=== PATIENT | female | born 1955 | race Caucasian/White ===

== ENCOUNTER 2017-10-16 21:20 | Emergency (ER) | payer OTHER ==
--- OUTSIDE RECORDS SUMMARY | 2017-10-16 21:21 | XMS REPORT | Clinical Summary ---
:1955 Author Organization [facility] Address [address] [place] [address] Phone Care Team Providers Name Role Phone Unavailable Primary Care Provider Unavailable Allergies Active Allergy Reactions Severity Noted Date Comments Clindamycin Hives, Itching 01/10/2016 Current Medications Prescription Sig. Disp. Refills Start Date End Date Status ALBUTEROL SULFATE Inhale 2 puffs by Active (PROAIR HFA INHL) mouth via inhaler 4 (four) times daily. cycloSPORINE Place 1 drop into Active (RESTASIS) 0.05 % both eyes daily. ophthalmic emulsion esomeprazole Take 40 mg by mouth Active (NEXIUM) 40 MG daily. capsule fluticasone Inhale 1 puff by Active (FLOVENT DISKUS) 50 mouth via inhaler mcg/actuation daily. diskus inhaler FORMOTEROL FUMARATE Inhale 20 mcg by Active (PERFOROMIST INHL) mouth via inhaler 2 (two) times daily. TIOTROPIUM BROMIDE Inhale 1 puff by Active (SPIRIVA RESPIMAT mouth via inhaler INHL) daily. heparin injection Inject 1 mL (5,000 1 mL 0 01/21/2016 Active 5,000 units/mL Units total) subcutaneously every 12 (twelve) hours. labetalol Inject 4 mLs (20 mg 20 mL 0 01/21/2016 Active (NORMODYNE,TRANDATE total) intravenously ) 5 mg/mL injection every 4 (four) hours as needed (SBP>180). insulin lispro Inject 0-16 Units 10 mL 0 01/21/2016 (HUMALOG) 100 subcutaneously as 7 unit/mL injection needed (High blood sugar). aspirin 81 MG Take 1 tablet (81 mg 0 01/21/2016 chewable tablet total) by mouth 7 daily. azelastine 1 spray by Nasal 30 mL 0 01/21/2016 (ASTELIN) 137 mcg route daily Use in 7 (0.1 %) nasal spray each nostril as directed. cetirizine (ZYRTEC) Take 1 tablet (5 mg 0 01/21/2016 5 MG tablet total) by mouth 7 daily. hydrALAZINE Take 1 tablet (100 0 01/21/2016 (APRESOLINE) 100 MG mg total) by mouth 7 tablet every 6 (six) hours. magnesium oxide Take 1 tablet (400 0 01/21/2016 (MAG-OX) 400 mg mg total) by mouth 2 7 tablet (two) times daily. sodium bicarbonate Take 1 tablet (325 0 01/21/2016 325 MG tablet mg total) by mouth 2 7 (two) times daily. pregabalin (LYRICA) Take 1 capsule (150 0 01/21/2016 150 MG capsule mg total) by mouth 2 7 (two) times daily. sertraline (ZOLOFT) Take 3 tablets (150 30 tablet 0 01/21/2016 50 MG tablet mg total) by mouth 7 daily. amLODIPine Take 1 tablet (10 mg 0 01/21/2016 (NORVASC) 10 MG total) by mouth 7 tablet daily. acetaminophen Take 2 tablets (650 30 tablet 0 01/21/2016 (TYLENOL) 325 MG mg total) by mouth 7 tablet every 6 (six) hours as needed for up to 360 days. carvedilol (COREG) Take 1 tablet (12.5 0 01/21/2016 12.5 MG tablet mg total) by mouth 2 7 (two) times daily. losartan (COZAAR) Take 1 tablet (50 mg 0 01/21/2016 50 MG tablet total) by mouth 7 daily. ferrous sulfate 325 Take 1 tablet (325 0 01/21/2016 (65 FE) MG tablet mg total) by mouth 2 7 (two) times daily. Active Problems Problem Noted Date Proteinuria 01/17/2016 UTI (urinary tract infection) 01/11/2016 HTN (hypertension), malignant 01/11/2016 ARF (acute renal failure) (HCC) 01/11/2016 Acute encephalopathy 01/11/2016 Altered mental status 01/10/2016 HTN (hypertension) HTN (hypertension) HTN (hypertension) CKD (chronic kidney disease) Social History Tobacco Use Types Packs/Day Years Used Date Never Assessed Sex Assigned at Date Recorded Not on file Last Filed Vital Signs Not on file Plan of Treatment Not on file Results Not on fileafter 10/15/2016
[2017-10-16 21:57] LABS: Absolute Lymphocytes (CBC) 0.8 K/uL (0.7-4.9); Absolute Monocytes 0.4 K/uL (0.1-1.3); Basophils % 1.2 % (0-1.3); Eosinophils % 5.2 % (0-4.4); Hematocrit 29.5 % (36.0-45.0); Lymphocytes % 18.7 % (15.3-44.8); MCH 30.8 pg (27.0-35.0); MCV 91.1 fL (80-100); MPV 8.3 fL (7.6-11.3); RBC Red Blood Cell Count 3.23 M/uL (3.86-4.86)
[2017-10-16 22:07] LABS: Bicarbonate 29 mEq/L (21-31); Glucose Level 95 mg/dL (65-120); Lipase 20 U/L (22-51); Potassium 3.9 mEq/L (3.6-5.0); Sodium Level 133 mEq/L (135-145)
[2017-10-16 22:14] LABS: AST/SGOT 14 IU/L (10-42); Albumin 3.7 g/dL (3.2-5.5); Alkaline Phosphatase 52 IU/L (42-121); Amylase Level 27 U/L (28-100); BUN Blood Urea Nitrogen 35 mg/dL (6-20); Bilirubin Direct 0.1 mg/dL (0-0.2); Bilirubin Total 0.4 mg/dL (0.3-1.2); Protein, Total 6.4 g/dL (6.0-8.3)
[2017-10-16 22:18] LABS: ALT/SGPT < 5 IU/L (10-60)
[2017-10-16] MEDS ORDERED: DIPHENOX/ATROP SULF 1 TAB PO ONE (22:53)
[2017-10-16] MEDS ORDERED: NA CHLORIDE 0.9% 1,000 ML ONE (22:55)
--- NOTE | 2017-10-16 23:21 | ER ---
Nurse's Notes [facility] Name: Sima Asher Age: 62 yrs Sex: Female : 1955 Arrival Date: 10/16/2017 Time: 21:30 Bed 5 Private MD: Diagnosis: Diarrhea, unspecified Presentation: 10/16 21:49 Presenting complaint: EMS states: pt c/o diarrhea for the last two weeks, can go tl3 anywhere from 3-10 times in a day, today it was immediately after eating which before it was not. no fever or vomiting, daughter states that pt was sleeping more than usual and groggy. Transition of care: patient was not received from another setting of care. Onset of symptoms. Risk Assessment: Do you want to hurt yourself or someone else? Patient reports no desire to harm self or others. Initial Sepsis Screen: Does the patient meet any 2 criteria? No. Patient's initial sepsis screen is negative. Does the patient have a suspected source of infection? No. Patient's initial sepsis screen is negative. Care prior to arrival: IV initiated. 20 GA, in the right antecubital area, infiltrated on arrival. 21:49 Method Of Arrival: EMS: [facility] tl3 21:49 Acuity: SUNDAY 3 tl3 Triage Assessment: 10/17 00:21 General: Appears in no apparent distress. slender, well groomed, well developed, well tl3 nourished, Behavior is calm, cooperative, appropriate for age. Pain: Denies pain. GI: Reports diarrhea. Historical: - Allergies: 10/16 22:01 Clindamycin; tl3 22:01 Cozaar; tl3 22:01 Losartan; tl3 22:01 Bactrim; tl3 - Home Meds: 22:01 Nexium 40 mg Oral cpDR 1 cap once daily [Active]; ProAir HFA 90 mcg/actuation tl3 inhalation HFAA 2 puffs every 6 hours [Active]; iron Oral [Active]; aspirin 81 mg Oral chew 1 tab once daily [Active]; fluticasone 50 mcg/actuation nasal spsn 1 spray once daily [Active]; gabapentin 100 mg oral cap [Active]; cetirizine 10 mg oral tab [Active]; trazodone 100 mg Oral tab 2 tabs [Active]; tramadol 50 mg Oral tab [Active]; hydralazine 100 mg Oral tab 3 times per day [Active]; magnesium oxide 400 mg Oral cap [Active]; isosorbide dinitrate 30 mg Oral tab [Active]; mirtazapine 15 mg Oral TbDL [Active]; - Immunization history:: Adult Immunizations up to date. - Social history:: Smoking status: Patient/guardian denies using tobacco, never smoked. - Ebola Screening: : Patient denies travel to an Ebola-affected area in the 21 days before illness onset. Screenin:05 Abuse screen: Denies threats or abuse. Nutritional screening: No deficits noted. tl3 Tuberculosis screening: No symptoms or risk factors identified. Fall Risk None identified. Assessment: 22:05 Reassessment: No changes from previously documented assessment. Patient and/or family tl3 updated on plan of care and expected duration. Pain level reassessed. Patient is alert, oriented x 3, equal unlabored respirations, skin warm/dry/pink. Vital Signs: 22:01 BP 171 / 80; Pulse 62; Resp 18; Temp 98; Pulse Ox 100% ; tl3 ED Course: 21:30 Patient arrived in ED. aa1 21:31 Kael Trujillo MD is Attending Physician. tw4 21:49 Dulce Maria Levi, SERENA is Primary Nurse. tl3 21:52 Triage completed. tl3 22:01 Arm band placed on right wrist. tl3 22:05 Patient has correct armband on for positive identification. Bed in low position. Call tl3 light in reach. Side rails up X2. monitoring and evaluation advisor on. Pulse ox on. NIBP on. Warm blanket given. 22:05 No provider procedures requiring assistance completed. Inserted saline lock: 22 gauge tl3 in left forearm, using aseptic technique. Blood collected. 22:49 Stool Culture Sent. tl3 22:49 Rotavirus Antigen Sent. tl3 22:49 Fecal Leukocyte Stain Sent. tl3 22:49 CDIFF Sent. tl3 22:49 Amylase, Serum Sent. tl3 23:20 Errol Menchaca MD is Referral Physician. tw4 06/04 00:20 IV discontinued, intact, bleeding controlled, No redness/swelling at site. Pressure tl3 dressing applied. Administered Medications: 10/16 22:00 Drug: NS 0.9% 1000 ml Route: IV; Rate: 125 ml/hr; Site: left forearm; Delivery: Primary tl3 tubing; 23:37 Follow up: Rate change 999 ml/hr tl3 10/17 15:09 Follow up: IV Status: Completed infusion; IV Intake: 500ml tl3 10/16 22:59 Drug: LoMOTIL 2 tabs Route: PO; tl3 23:23 Follow up: Response: No adverse reaction tl3 Intake: 10/17 15:09 IV: 500ml; Total: 500ml. tl3 Outcome: 10/16 23:20 Discharge ordered by MD. jovel 10/17 00:20 Discharged to home ambulatory. tl3 Condition: stable Discharge instructions given to patient, family, Instructed on discharge instructions, follow up and referral plans. medication usage, Demonstrated understanding of instructions, follow-up care, medications, Prescriptions given X 3. 00:22 Patient left the ED. tl3 Signatures: Anabell Driver, RN RN aa1 Kael Trujillo MD MD tw4 Dulce Maria Levi RN RN tl3
--- NOTE | 2017-10-16 23:21 | EDPHYS ---
Physician Documentation [facility] Name: Sima Asher Age: 62 yrs Sex: Female : 1955 Arrival Date: 10/16/2017 Time: 21:30 Bed 5 Private MD: ED Physician Kael Trujillo HPI: 10/17 00:03 This 62 yrs old Female presents to ER via EMS with complaints of Diarrhea. tw4 00:03 The patient presents to the emergency department with diarrhea, that is continuous, 5 tw4 times today. Onset: The symptoms/episode began/occurred 2 week(s) ago. Possible causes: flare up of bowel problem. The symptoms are aggravated by nothing. The symptoms are alleviated by nothing. Associated signs and symptoms: The patient has no apparent associated signs or symptoms. The patient has not experienced similar symptoms in the past. Historical: - Allergies: 10/16 22:01 Clindamycin; tl3 22:01 Cozaar; tl3 22:01 Losartan; tl3 22:01 Bactrim; tl3 - Home Meds: 22:01 Nexium 40 mg Oral cpDR 1 cap once daily [Active]; ProAir HFA 90 mcg/actuation tl3 inhalation HFAA 2 puffs every 6 hours [Active]; iron Oral [Active]; aspirin 81 mg Oral chew 1 tab once daily [Active]; fluticasone 50 mcg/actuation nasal spsn 1 spray once daily [Active]; gabapentin 100 mg oral cap [Active]; cetirizine 10 mg oral tab [Active]; trazodone 100 mg Oral tab 2 tabs [Active]; tramadol 50 mg Oral tab [Active]; hydralazine 100 mg Oral tab 3 times per day [Active]; magnesium oxide 400 mg Oral cap [Active]; isosorbide dinitrate 30 mg Oral tab [Active]; mirtazapine 15 mg Oral TbDL [Active]; - Immunization history:: Adult Immunizations up to date. - Social history:: Smoking status: Patient/guardian denies using tobacco, never smoked. - Ebola Screening: : Patient denies travel to an Ebola-affected area in the 21 days before illness onset. ROS: 10/17 00:03 Constitutional: Negative for fever, chills, and weight loss, Cardiovascular: Negative tw4 for chest pain, palpitations, and edema, Respiratory: Negative for shortness of breath, cough, wheezing, and pleuritic chest pain, MS/Extremity: Negative for injury and deformity, Skin: Negative for injury, rash, and discoloration. Abdomen/GI: Positive for diarrhea, Negative for abdominal pain, nausea and vomiting, nausea, vomiting, and diarrhea, nausea, abdominal cramps, abdominal distension, anorexia, dysphagia, hematemesis, black/tarry stool, rectal pain, rectal bleeding. Exam: 00:03 Constitutional: This is a well developed, well nourished patient who is awake, alert, tw4 and in no acute distress. Head/Face: Normocephalic, atraumatic. Chest/axilla: Normal chest wall appearance and motion. Nontender with no deformity. No lesions are appreciated. Cardiovascular: Regular rate and rhythm with a normal S1 and S2. No gallops, murmurs, or rubs. Normal PMI, no JVD. No pulse deficits. Respiratory: Lungs have equal breath sounds bilaterally, clear to auscultation and percussion. No rales, rhonchi or wheezes noted. No increased work of breathing, no retractions or nasal flaring. Abdomen/GI: Soft, non-tender, with normal bowel sounds. No distension or tympany. No guarding or rebound. No evidence of tenderness throughout. MS/ Extremity: Pulses equal, no cyanosis. Neurovascular intact. Full, normal range of motion. Neuro: Awake and alert, GCS 15, oriented to person, place, time, and situation. Cranial nerves II-XII grossly intact. Motor strength 5/5 in all extremities. Sensory grossly intact. Cerebellar exam normal. Normal gait. Vital Signs: 10/16 22:01 BP 171 / 80; Pulse 62; Resp 18; Temp 98; Pulse Ox 100% ; tl3 MDM: 21:31 Patient medically screened. tw4 10/17 00:04 Differential diagnosis: Nonspecific abd pain. Data reviewed: vital signs, nurses notes. tw4 Counseling: I had a detailed discussion with the patient and/or guardian regarding: the historical points, exam findings, and any diagnostic results supporting the discharge/admit diagnosis. Special discussion: I discussed with the patient/guardian in detail that at this point there is no indication for admission to the hospital. It is understood, however, that if the symptoms persist or worsen the patient needs to return immediately for re-evaluation. 10/16 21:40 Order name: Amylase, Serum [facility] 10/16 21:40 Order name: Basic Metabolic Panel; Complete Time: 22:34 [facility] 10/16 22:34 Interpretation: GFR 20; CRE 2.51; BUN 35; CL 99; NA 133. [facility] 10/16 21:40 Order name: CBC with Diff; Complete Time: 22:16 [facility] 10/16 21:40 Order name: Creatinine for Radiology; Complete Time: 22:16 [facility] 10/16 21:40 Order name: Hepatic Function; Complete Time: 22:34 [facility] 10/16 21:40 Order name: Lipase; Complete Time: 22:34 [facility] 10/16 21:40 Order name: Amylase Level; Complete Time: 22:34 [facility] 10/16 22:15 Order name: CDIFF [facility] 10/16 22:15 Order name: Stool Culture [facility] 10/16 22:15 Order name: Rotavirus Antigen [facility] 10/16 22:15 Order name: Fecal Leukocyte Stain [facility] 10/16 22:15 Order name: Ova And Parasites [facility] 10/16 21:40 Order name: IV Saline Lock; Complete Time: 22:49 [facility] 10/16 21:40 Order name: Labs collected and sent; Complete Time: 22:49 [facility] 10/16 22:16 Order name: Clostridium difficile DNA [facility] 10/16 22:16 Order name: Stool Culture [facility] 10/16 22:16 Order name: Rotavirus Antigen [facility] 10/16 22:16 Order name: Fecal Leukocyte Stain [facility] Administered Medications: 10/16 22:00 Drug: NS 0.9% 1000 ml Route: IV; Rate: 125 ml/hr; Site: left forearm; Delivery: Primary tl3 tubing; 23:37 Follow up: Rate change 999 ml/hr [facility] 10/17 15:09 Follow up: IV Status: Completed infusion; IV Intake: 500ml [facility] 10/16 22:59 Drug: LoMOTIL 2 tabs Route: PO; tl3 23:23 Follow up: Response: No adverse reaction tl3 Disposition: 10/16/17 23:20 Discharged to Home. Impression: Diarrhea, unspecified. - Condition is Stable. - Discharge Instructions: Food Choices to Help Relieve Diarrhea, Adult, Diarrhea. - Prescriptions for Lomotil 2.5- 0.025 mg Oral Tablet - take 2 tablet by ORAL route once daily As needed; 20 tablet. Cipro 500 mg Oral Tablet - take 1 tablet by ORAL route every 12 hours for 10 days; 20 tablet. - Medication Reconciliation Form, Thank You Letter, Antibiotic Education, Prescription Opioid Use form. - Follow up: Errol Menchaca MD; When: As needed; Reason: Recheck today's complaints, Continuance of care, Re-evaluation by your physician. - Problem is new. - Symptoms have improved. Signatures: Dispatcher [employer] [facility] Kael Trujillo MD MD tw4 Dulce Maria Levi RN RN tl3 Corrections: (The following items were deleted from the chart) 22:17 22:16 Occult Blood+[id number] ordered. [facility] 10/17 00:22 [id number] 23:20 10/16/2017 23:20 Discharged to Home. Impression: Diarrhea, unspecified. tl3 Condition is Stable. Forms are Medication Reconciliation Form, Thank You Letter, Antibiotic Education, Prescription Opioid Use. Follow up: Errol Menchaca; When: As needed; Reason: Recheck today's complaints, Continuance of care, Re-evaluation by your physician. Problem is new. Symptoms have improved. tw4
[2017-10-17 00:35] VITALS: BP 171/80; TEMP 98; O2SAT 100
== END 2017-10-17 00:22 | disposition home or self-care (01) ==
LOC: ER 21:20
DX: R19.7 Diarrhea, unspecified (principal); Z88.1 Allergy status to other antibiotic agents; Z88.8 Allergy status to other drugs, medicaments and biological substances
CPT/HCPCS: 36415; 80048; 80076; 82150; 83690; 85025; 87045; 87046; 87177; 87209; 87425; 87493; 89055; 96360; 96361; 99284; J7030

== ENCOUNTER 2017-10-17 11:25 | Inpatient (IN) | payer OTHER ==
--- OUTSIDE RECORDS SUMMARY | 2017-10-17 11:27 | XMS REPORT | Clinical Summary ---
:1955 Author Organization [facility] Address [address] [place] [address] Phone Care Team Providers Name Role Phone [...] Not on file Results Not on fileafter 10/16/2016
--- NOTE | 2017-10-17 13:04 | RAD REPORT ---
EXAM DESCRIPTION: RAD - Tib Fib Left - 10/17/2017 12:50 pm CLINICAL HISTORY: Fall, bilateral knee pain COMPARISON: None. FINDINGS: Transverse fracture is present involving the proximal to the metaphysis. Extension to the articular surface is suspected but not confirmed. Fracture of the head of the fibula is present. The proximal tibial plateau fracture fragment is angulated posteriorly approximately 25 degrees. There is approximately 12 millimeter diastasis along the anterior margin of the fracture. Pathologic componen t is not confirmed. More distally the shaft and distal tibia and fibula are intact. Knee joint is not well visualized to assess for hemarthrosis. Left knee is separately detailed. No air or foreign body in the soft tissues. IMPRESSION: Transverse fractures of the proximal tibia and fibula with the tibial plateau fracture f ragment angulated posteriorly approximately 25 degrees.
--- NOTE | 2017-10-17 13:10 | RAD REPORT ---
EXAM DESCRIPTION: RAD - Tib Fib Right - 10/17/2017 12:50 pm CLINICAL HISTORY: Fall, right knee pain COMPARISON: None. FINDINGS: Right knee and right tibia/ fibula, multiple views are submitted. A fracture seen involving the lateral tibial plateau extending inferior to the level of the tibial tu bercle. A lipohemarthrosis is present, moderate in size. The bones are osteopenic.
--- NOTE | 2017-10-17 13:11 | RAD REPORT ---
EXAM DESCRIPTION: RAD - Knee Left 2 View - 10/17/2017 12:50 pm CLINICAL HISTORY: Fall, knee pain COMPARISON: None. FINDINGS: Significant transverse fracture is seen involving the proximal tibial metaphysis at the le bre of the tibial tubercle. Fracture involving the fibular neck is also present. Soft tissue swelling is moderate. A lipohemarthrosis is seen.
--- NOTE | 2017-10-17 13:13 | RAD REPORT ---
EXAM DESCRIPTION: RAD - Chest Single View - 10/17/2017 12:50 pm CLINICAL HISTORY: Cough COMPARISON: 02/05/2016 FINDINGS: Portable technique limits examination quality. The lungs are emphysematous but grossly clear. The heart is normal in size. No displaced fractures. IMPRESSION: No acute intrathoracic process suspected.
--- NOTE | 2017-10-17 13:18 | EKG ---
Test Date: 2017-10-17 Test Time: 13:00:01 Bonding Machine Setter: VIANEY/[place] MEASUREMENT RESULTS: Intervals: Rate: 63 ID: [id number] QRSD: 88 QT: 480 QTc: 491 [place]: P: 82 ID: [id number] QRS: 30 T: 72 INTERPRETIVE STATEMENTS: Sinus rhythm with frequent premature ventricular complexes Prolonged QT Abnormal ECG Compared to ECG 02/06/2016 06:41:06 Ventricular premature complex(es) now present Prolonged QT interval now present Left ventricular hypertrophy no longer present Electronically Signed On 10-17-17 13:17:54 CDT by Silver [place]
--- NOTE | 2017-10-17 13:18 | ER ---
Nurse's Notes [facility] Name: Sima Asher Age: 62 yrs Sex: Female : 1955 Arrival Date: 10/17/2017 Time: 11:29 Bed 17 Private MD: Diagnosis: Displaced fracture of right tibial tuberosity;Displaced fracture of left tibial tuberosity;Fall due to bumping against object Presentation: 10/17 11:38 Presenting complaint: EMS states: EMS states patient was seen here the previous evening ae1 for excessive diarrhea and dehydration, was discharged and then had a fall this morning, striking Hesham knees. Denies LOC and striking head. Transition of care: [facility]. Onset of symptoms was October 17, 2017. Risk Assessment: Do you want to hurt yourself or someone else? Patient reports no desire to harm self or others. Care prior to arrival: v/s 127/81, HR 59. 11:38 Acuity: SUNDAY 3 ae1 11:38 Method Of Arrival: EMS: [facility] ae1 11:46 Initial Sepsis Screen: Does the patient have a suspected source of infection?. ae1 15:12 Initial Sepsis Screen: Does the patient meet any 2 criteria? No. Patient's initial ae1 sepsis screen is negative. Historical: - Allergies: 11:37 Bactrim; ae1 11:37 Clindamycin; ae1 11:37 Cozaar; ae1 11:37 Losartan; ae1 - Home Meds: 11:37 aspirin 81 mg Oral chew 1 tab once daily [Active]; cetirizine 10 mg Oral tab [Active]; ae1 fluticasone 50 mcg/actuation nasal spsn 1 spray once daily [Active]; gabapentin 100 mg Oral cap [Active]; hydralazine 100 mg Oral tab 3 times per day [Active]; iron Oral [Active]; isosorbide dinitrate 30 mg Oral tab [Active]; magnesium oxide 400 mg Oral cap [Active]; mirtazapine 15 mg Oral TbDL [Active]; Nexium 40 mg Oral cpDR 1 cap once daily [Active]; ProAir HFA 90 mcg/actuation inhalation HFAA 2 puffs every 6 hours [Active]; tramadol 50 mg Oral tab [Active]; trazodone 100 mg Oral tab 2 tabs [Active]; - PMHx: 11:37 Hypertension; ae1 - Immunization history:: Pneumococcal vaccine is up to date, Flu vaccine is up to date. - Social history:: Smoking status: Patient uses tobacco products, smokes one-half pack cigarettes per day. - Family history:: not pertinent. - Ebola Screening: : Patient negative for fever greater than or equal to 101.5 degrees Fahrenheit, and additional compatible Ebola Virus Disease symptoms Patient denies travel to an Ebola-affected area in the 21 days before illness onset. Screenin:12 Abuse screen: Denies threats or abuse. Nutritional screening: No deficits noted. ae1 Tuberculosis screening: No symptoms or risk factors identified. Fall Risk Fall in past 12 months (25 points). No secondary diagnosis (0 pts). IV access (20 points). Ambulatory Aid- Crutches/Cane/Walker (15 pts). Gait- Weak (10 pts.). Mental Status- Oriented to own ability (0 pts). Assessment: 13:45 Pain: Complains of pain in left knee. ae1 15:00 Reassessment: HESHAM knee pain. Reassessment: Provider notified, new orders received. ae1 Pain: Complains of pain in right knee. 15:13 Reassessment: Patient appears in no apparent distress at this time. Patient and/or ae1 family updated on plan of care and expected duration. Pain level reassessed. Patient states feeling better. 19:51 General: Appears in no apparent distress. Behavior is calm, cooperative, appropriate ea for age. Pain: Complains of pain in right knee and left knee. Neuro: Level of Consciousness is awake, alert, obeys commands, Oriented to person, place, time, situation. Cardiovascular: Patient's skin is warm and dry. Cardiovascular: Capillary refill < 3 seconds toes. Respiratory: Airway is patent Respiratory effort is even, unlabored, Respiratory pattern is regular, symmetrical. GI: No signs and/or symptoms were reported involving the gastrointestinal system. : No signs and/or symptoms were reported regarding the genitourinary system. EENT: No signs and/or symptoms were reported regarding the EENT system. Derm: Skin is pink, warm \T\ dry. Musculoskeletal: imobilizer to bilateral lower extremity. 19:59 Reassessment: Patient and/or family updated on plan of care and expected duration. Pain ea level reassessed. Patient is alert, oriented x 3, equal unlabored respirations, skin warm/dry/pink. Report given to receiving nurse. Vital Signs: 11:31 BP 106 / 47; Pulse 64; Resp 16; Temp 98.4(O); Pulse Ox 98% on 2 lpm NC; Weight 43.09 kg ae1 (R); 12:30 BP 106 / 47; Pulse 63; Resp 16; Pulse Ox 100% on R/A; ae1 13:30 BP 119 / 57; Pulse 63; Resp 17; Pulse Ox 100% on R/A; ae1 16:52 BP 122 / 67; Pulse 72; Resp 18; Pulse Ox 100% on R/A; ae1 18:08 BP 144 / 66; Pulse 74; Resp 18; Pulse Ox 97% on R/A; ae1 19:57 BP 114 / 65; Pulse 76; Resp 18; Pulse Ox 98% on R/A; Pain 3/10; ea ED Course: 11:29 Patient arrived in ED. ae1 11:31 Satish Sweeney RN is Primary Nurse. ae1 11:38 Jai Rodrigues MD is Attending Physician. erica 11:42 Triage completed. ae1 11:42 Arm band placed on left wrist. ae1 11:42 Placed in gown. Bed in low position. Call light in reach. Side rails up X2. Adult w/ ae1 patient. Pulse ox on. NIBP on. Warm blanket given. 12:44 XRAY Chest (1 view) In Process Unspecified. EDMS 12:44 Knee Left 2 View XRAY In Process Unspecified. EDMS 12:44 Knee Right 2 View XRAY In Process Unspecified. EDMS 12:44 Tib Fib Left XRAY In Process Unspecified. EDMS 12:44 Tib Fib Right XRAY In Process Unspecified. EDMS 12:56 X-ray completed. Patient tolerated procedure well. Patient moved back from radiology. jb2 13:19 Inserted saline lock: 22 gauge in left forearm, using aseptic technique. Blood ch collected. 14:16 Knee Left Wo Con In Process Unspecified. EDMS 14:16 Knee Right Wo Cont In Process Unspecified. EDMS 14:40 Prosper Villanueva DO is Hospitalizing Provider. erica 17:25 Bharati Salmon FNP-C is PHCP. snw 19:55 No provider procedures requiring assistance completed. Patient admitted, IV remains in ea place. Administered Medications: 13:50 Drug: Zofran 4 mg Route: IVP; Site: left forearm; ae1 16:51 Follow up: Response: No adverse reaction ae1 13:53 Drug: fentaNYL (PF) 25 mcg Route: IVP; Site: left forearm; ae1 16:50 Follow up: Response: Pain is unchanged, physician notified ae1 15:14 Drug: fentaNYL (PF) 25 mcg Route: IVP; Site: left forearm; ae1 16:50 Follow up: Response: Pain is decreased ae1 18:16 Drug: fentaNYL (PF) 25 mcg Route: IVP; Site: left forearm; ae1 18:27 Follow up: Response: Pain is decreased ae1 Outcome: 13:17 Discharge ordered by . erica 14:42 Decision to Hospitalize by Provider. erica 19:56 Admitted to Med/surg accompanied by tech, via stretcher, room 214, Report called to ea Jana RN 19:56 Condition: stable 19:56 Instructed on the need for admit. 20:00 Patient left the ED. ea Signatures: Dispatcher [employer] EDMS Kim Werner, RN RN Jai Martinez MD MD cha Therrien, Shelly, SQUEEGEER AND FORMER-C SQUEEGEER AND FORMER-[employer] Celso Pereira jb2 Charlotte evans, interactive producer EKG Tat1 Satish Sweeney RN RN ae1 Elisabet Kitchen RN RN ea Corrections: (The following items were deleted from the chart) 12:27 12:26 EKG done, by oil bay technician. reviewed by Jai Rodrigues MD at1 at1
--- NOTE | 2017-10-17 13:18 | EDPHYS ---
Physician Documentation [facility] Name: Sima Asher Age: 62 yrs Sex: Female : 1955 Arrival Date: 10/17/2017 Time: 11:29 Bed 17 Private MD: ED Physician Jai Rodrigues HPI: 10/17 11:49 This 62 yrs old Female presents to ER via EMS with complaints of fall to erica bilateral knees. 11:49 The patient presents with decreased range of motion, an injury, pain, swelling, erica tenderness. The complaints affect the lateral aspect of left knee, medial aspect of left knee, left knee and left nowak, right knee and right nowak. Context: The problem was sustained at daycare, resulted from the patient falling, the patient is not able to bear weight, the patient is not able to ambulate. Onset: The symptoms/episode began/occurred this morning, last night. Modifying factors: The symptoms are alleviated by remaining still, the symptoms are aggravated by movement. Associated signs and symptoms: The patient has no apparent associated signs or symptoms. Treatment prior to arrival includes: no previous treatment. Severity of symptoms: At their worst the symptoms were mild, moderate, in the emergency department the symptoms are unchanged. The patient has not experienced similar symptoms in the past. Historical: - Allergies: 11:37 Bactrim; ae1 11:37 Clindamycin; ae1 11:37 Cozaar; ae1 11:37 Losartan; ae1 - Home Meds: 11:37 aspirin 81 mg Oral chew 1 tab once daily [Active]; cetirizine 10 mg Oral tab [Active]; ae1 fluticasone 50 mcg/actuation nasal spsn 1 spray once daily [Active]; gabapentin 100 mg Oral cap [Active]; hydralazine 100 mg Oral tab 3 times per day [Active]; iron Oral [Active]; isosorbide dinitrate 30 mg Oral tab [Active]; magnesium oxide 400 mg Oral cap [Active]; mirtazapine 15 mg Oral TbDL [Active]; Nexium 40 mg Oral cpDR 1 cap once daily [Active]; ProAir HFA 90 mcg/actuation inhalation HFAA 2 puffs every 6 hours [Active]; tramadol 50 mg Oral tab [Active]; trazodone 100 mg Oral tab 2 tabs [Active]; - PMHx: 11:37 Hypertension; ae1 - Immunization history:: Pneumococcal vaccine is up to date, Flu vaccine is up to date. - Social history:: Smoking status: Patient uses tobacco products, smokes one-half pack cigarettes per day. - Family history:: not pertinent. - Ebola Screening: : Patient negative for fever greater than or equal to 101.5 degrees Fahrenheit, and additional compatible Ebola Virus Disease symptoms Patient denies travel to an Ebola-affected area in the 21 days before illness onset. ROS: 11:49 Constitutional: Negative for fever, chills, and weight loss, Eyes: Negative for injury, erica pain, redness, and discharge, ENT: Negative for injury, pain, and discharge, Neck: Negative for injury, pain, and swelling, Cardiovascular: Negative for chest pain, palpitations, and edema, Respiratory: Negative for shortness of breath, cough, wheezing, and pleuritic chest pain, Abdomen/GI: Negative for abdominal pain, nausea, vomiting, diarrhea, and constipation, Back: Negative for injury and pain, : Negative for injury, bleeding, discharge, and swelling, Skin: Negative for injury, rash, and discoloration, Neuro: Negative for headache, weakness, numbness, tingling, and seizure, Psych: Negative for depression, anxiety, suicide ideation, homicidal ideation, and hallucinations, Allergy/Immunology: Negative for hives, rash, and allergies, Endocrine: Negative for neck swelling, polydipsia, polyuria, polyphagia, and marked weight changes. 11:49 MS/extremity: Positive for decreased range of motion, pain, of the right leg and left leg. Exam: 11:49 Constitutional: This is a well developed, well nourished patient who is awake, alert, erica and in no acute distress. Head/Face: Normocephalic, atraumatic. Eyes: Pupils equal round and reactive to light, extra-ocular motions intact. Lids and lashes normal. Conjunctiva and sclera are non-icteric and not injected. Cornea within normal limits. Periorbital areas with no swelling, redness, or edema. ENT: Nares patent. No nasal discharge, no septal abnormalities noted. Tympanic membranes are normal and external auditory canals are clear. Oropharynx with no redness, swelling, or masses, exudates, or evidence of obstruction, uvula midline. Mucous membranes moist. Neck: Trachea midline, no thyromegaly or masses palpated, and no cervical lymphadenopathy. Supple, full range of motion without nuchal rigidity, or vertebral point tenderness. No Meningismus. Chest/axilla: Normal chest wall appearance and motion. Nontender with no deformity. No lesions are appreciated. Cardiovascular: Regular rate and rhythm with a normal S1 and S2. No gallops, murmurs, or rubs. Normal PMI, no JVD. No pulse deficits. Respiratory: Lungs have equal breath sounds bilaterally, clear to auscultation and percussion. No rales, rhonchi or wheezes noted. No increased work of breathing, no retractions or nasal flaring. Abdomen/GI: Soft, non-tender, with normal bowel sounds. No distension or tympany. No guarding or rebound. No evidence of tenderness throughout. Back: No spinal tenderness. No costovertebral tenderness. Full range of motion. Female : Normal external genitalia. Skin: Warm, dry with normal turgor. Normal color with no rashes, no lesions, and no evidence of cellulitis. Neuro: Awake and alert, GCS 15, oriented to person, place, time, and situation. Cranial nerves II-XII grossly intact. Motor strength 5/5 in all extremities. Sensory grossly intact. Cerebellar exam normal. Normal gait. Psych: Awake, alert, with orientation to person, place and time. Behavior, mood, and affect are within normal limits. 11:49 Musculoskeletal/extremity: ROM: limited active range of motion, limited passive range of motion, limited active range of motion due to pain, limited passive range of motion due to pain, Sensation intact. Compartment Syndrome exam of affected extremity: is normal. Weight bearing: is unable to bear weight, Tendon exam: unable to examine DVT Exam: no pain, no swelling, no tenderness, positive Homans' sign noted on exam, bluish discoloration, erythema, increased warmth. Vital Signs: 11:31 BP 106 / 47; Pulse 64; Resp 16; Temp 98.4(O); Pulse Ox 98% on 2 lpm NC; Weight 43.09 kg ae1 (R); 12:30 BP 106 / 47; Pulse 63; Resp 16; Pulse Ox 100% on R/A; ae1 13:30 BP 119 / 57; Pulse 63; Resp 17; Pulse Ox 100% on R/A; ae1 16:52 BP 122 / 67; Pulse 72; Resp 18; Pulse Ox 100% on R/A; ae1 18:08 BP 144 / 66; Pulse 74; Resp 18; Pulse Ox 97% on R/A; ae1 19:57 BP 114 / 65; Pulse 76; Resp 18; Pulse Ox 98% on R/A; Pain 3/10; ea MDM: 11:38 Patient medically screened. [facility] 11:54 Data reviewed: vital signs, nurses notes, lab test result(s), EKG, radiologic studies, erica plain films. 10/17 11:48 Order name: Basic Metabolic Panel [facility] 10/17 11:48 Order name: BNP; Complete Time: 14:35 [facility] 10/17 11:48 Order name: CBC with Diff; Complete Time: 14:35 [facility] 10/17 11:48 Order name: Ckmb [facility] 10/17 11:48 Order name: CPK [facility] 10/17 11:48 Order name: LFT's [facility] 10/17 11:48 Order name: Magnesium [facility] 10/17 11:48 Order name: PT-INR; Complete Time: 14:35 [facility] 10/17 11:48 Order name: Ptt, Activated; Complete Time: 14:35 [facility] 10/17 11:48 Order name: Troponin (emerg Dept Use Only) [facility] 10/17 11:48 Order name: XRAY Chest (1 view); Complete Time: 13:27 [facility] 10/17 11:48 Order name: Lipase [facility] 10/17 11:48 Order name: Knee Left 2 View XRAY; Complete Time: 13:27 [facility] 10/17 11:48 Order name: Knee Right 2 View XRAY; Complete Time: 13:27 [facility] 10/17 11:48 Order name: EKG; Complete Time: 11:49 [facility] 10/17 11:48 Order name: Cardiac monitoring; Complete Time: 12:26 [facility] 10/17 11:48 Order name: EKG - Nurse/Tech; Complete Time: 19:58 [facility] 10/17 11:48 Order name: IV Saline Lock; Complete Time: 12:26 [facility] 10/17 11:48 Order name: Labs collected and sent; Complete Time: 19:58 [facility] 10/17 11:48 Order name: O2 Per Protocol; Complete Time: 12:26 [facility] 10/17 11:48 Order name: O2 Sat Monitoring; Complete Time: 12:26 [facility] 10/17 11:48 Order name: Tib Fib Left XRAY; Complete Time: 13:27 [facility] 10/17 11:48 Order name: Tib Fib Right XRAY; Complete Time: 13:27 [facility] 10/17 13:31 Order name: Knee Left Wo Con [facility]SD 10/17 13:31 Order name: Knee Right Wo Cont; Complete Time: 14:35 [facility] 10/17 14:46 Order name: CONS Physician Consult [facility] 10/17 14:39 Order name: Knee Immobilizer; Complete Time: 18:08 [facility] 10/17 14:39 Order name: Knee Immobilizer; Complete Time: 18:08 [facility] Administered Medications: 13:50 Drug: Zofran 4 mg Route: IVP; Site: left forearm; ae1 16:51 Follow up: Response: No adverse reaction ae1 13:53 Drug: fentaNYL (PF) 25 mcg Route: IVP; Site: left forearm; ae1 16:50 Follow up: Response: Pain is unchanged, physician notified ae1 15:14 Drug: fentaNYL (PF) 25 mcg Route: IVP; Site: left forearm; ae1 16:50 Follow up: Response: Pain is decreased ae1 18:16 Drug: fentaNYL (PF) 25 mcg Route: IVP; Site: left forearm; ae1 18:27 Follow up: Response: Pain is decreased ae1 Disposition: 10/17/17 14:42 Hospitalization ordered by Prosper Villanueva for Observation. Preliminary diagnosis are Displaced fracture of right tibial tuberosity, Displaced fracture of left tibial tuberosity, Fall due to bumping against object. - Bed requested for Telemetry/MedSurg (observation). - Status is Observation. ea - Condition is Stable. - Problem is new. - Symptoms have improved. UTI on Admission? No Signatures: Dispatcher [employer] EDSD Lisa Patel Corey, MD MD cha Elliott, Andrea RN RN ae1 Elisabet Kitchen RN RN ea Corrections: (The following items were deleted from the chart) 13:20 13:17 10/17/2017 13:17 Discharged to Home. Impression: Fall due to bumping against erica object; Contusion of left front wall of thorax; Contusion of left back wall of thorax. Condition is Fair. Forms are Medication Reconciliation Form, Thank You Letter, Antibiotic Education, Prescription Opioid Use. Follow up: Private Physician; When: 2 - 3 days; Reason: Recheck today's complaints, Continuance of care, Re-evaluation by your physician. Problem is new. Symptoms have improved. erica 17:48 14:42 Hospitalization Ordered by Prosper Villanueva DO for Observation. Preliminary bd diagnosis is Displaced fracture of right tibial tuberosity; Displaced fracture of left tibial tuberosity; Fall due to bumping against object. Bed requested for Telemetry/MedSurg (observation). Status is Observation. Condition is Stable. Problem is new. Symptoms have improved. UTI on Admission? No. erica 20:00 17:48 10/17/2017 14:42 Hospitalization Ordered by Prosper Villanueva DO for Observation. ea Preliminary diagnosis is Displaced fracture of right tibial tuberosity; Displaced fracture of left tibial tuberosity; Fall due to bumping against object. Bed requested for Telemetry/MedSurg (observation). Status is Observation. Condition is Stable. Problem is new. Symptoms have improved. UTI on Admission? No. bd
--- NOTE | 2017-10-17 13:25 | RAD REPORT ---
EXAM DESCRIPTION: RAD - Knee Right 2 View - 10/17/2017 12:50 pm CLINICAL HISTORY: Fall, right knee pain COMPARISON: None. FINDINGS: Right knee and right tibia/ fibula, multiple views are submitted. A fracture seen involving the lateral tibial plateau extending inferior to the level of the tibial tu bercle. A lipohemarthrosis is present, moderate in size. The bones are osteopenic.
[2017-10-17 13:36] LABS: Absolute Lymphocytes (CBC) 0.8 K/uL (0.7-4.9); Absolute Monocytes 0.5 K/uL (0.1-1.3); Absolute Neutrophil 7.5 K/uL (1.8-8.0); Basophils % 0.9 % (0-1.3); Eosinophils % 2.6 % (0-4.4); Hematocrit 29.8 % (36.0-45.0); Lymphocytes % 8.7 % (15.3-44.8); MCH 29.4 pg (27.0-35.0); MCV 91.9 fL (80-100); MPV 8.6 fL (7.6-11.3); Monocytes % 5.5 % (3.3-12.3); RBC Red Blood Cell Count 3.24 M/uL (3.86-4.86)
[2017-10-17 13:39] LABS: Bicarbonate 24 mEq/L (21-31); Glucose Level 89 mg/dL (65-120); Lipase 18 U/L (22-51); Sodium Level 135 mEq/L (135-145)
[2017-10-17 13:41] LABS: Protime INR 0.95
[2017-10-17] MEDS ORDERED: FENTANYL CITR 100 MCG/2 ML ONE (13:55)
[2017-10-17] MEDS ORDERED: ONDANSETRON 4 MG/2 ML VIAL ONE (13:55)
--- NOTE | 2017-10-17 14:32 | RAD REPORT ---
EXAM DESCRIPTION: CT - Knee Right Wo Cont - 10/17/2017 2:16 pm CLINICAL HISTORY: Trauma, pain. COMPARISON: Recent plain radiograph. FINDINGS: The osseous structures are significantly osteopenic. Moderate to large lateral tibial plateau fracture is seen with extension anteriorly to the tibial tub ercle. Fracture fragments are minimally displaced. Very subtle lucency is also seen involving the med ial tibial plateau articular surface more posteriorly, equivocal for additional fracture. Moderate li pohemarthrosis is seen. Static patellar alignment is within normal limits. Moderate soft tissue swelling is seen about the kn ee. IMPRESSION: Tibial plateau fractures as detailed Moderate lipohemarthrosis.
--- NOTE | 2017-10-17 14:39 | RAD REPORT ---
EXAM DESCRIPTION: CT - Knee Left Wo Eliceo - 10/17/2017 2:16 pm CLINICAL HISTORY: Fall, trauma, knee pain COMPARISON: Recent plain radiographs. FINDINGS: The bones are moderately osteopenic. A fracture is noted involving the proximal tibial metaphysis. A tibial tubercle component is also see n. A component of the left aspect of the fracture appears to extend to the lateral articular surface of the tibia compatible with tibial plateau fracture. Subtle lucency is seen in the medial pole of the patella, likely representing nondisplaced fracture. Mildly impacted fracture of the fibular neck is also present. Moderate lipohemarthrosis is noted. Moderate soft tissue swelling about the knee. IMPRESSION: Proximal tibial metaphyseal fracture seen with suspicion for extension of the fracture t o involve the lateral tibial plateau. Mildly impacted fibular neck fracture. Nondisplaced fracture medial pole of the patella. Moderate lipohemarthrosis.
[2017-10-17 15:13] LABS: ALT/SGPT 7 IU/L (10-60); AST/SGOT 13 IU/L (10-42); Albumin 3.5 g/dL (3.2-5.5); Alkaline Phosphatase 51 IU/L (42-121); BUN Blood Urea Nitrogen 33 mg/dL (6-20); Bilirubin Direct 0.2 mg/dL (0-0.2); Creatine Phosphokinase 89 IU/L (22-269); Magnesium 2.3 mg/dL (1.8-2.5); Protein, Total 5.9 g/dL (6.0-8.3)
[2017-10-17 15:14] LABS: Bilirubin Total < 0.1 mg/dL (0.3-1.2)
[2017-10-17] MEDS ORDERED: ALBUTEROL 2.5 MG/3 ML NEB SOL NEB PRN (15:31)
[2017-10-17] MEDS ORDERED: TRAMADOL HCL 50 MG TAB PO PRN (15:31)
[2017-10-17] MEDS ORDERED: IPRATROPIUM BROM 0.5MG/2.5ML NEB PRN (15:31)
[2017-10-17 15:49] LABS: CKMB Creatine Kinase MB 2.9 ng/ml (0.3-4.0)
--- NOTE | 2017-10-17 15:50 | P.HP ---
Certification for Inpatient Patient admitted to: Inpatient With expected LOS: >2 Midnights Patient will require the following post-hospital care: Other Practitioner: I am a practitioner with admitting privileges, knowledge of patient current condition, hospital course, and medical plan of care. Services: Services provided to patient in accordance with Admission requirements found in Title 42 Section 412.3 of the Code of Federal Regulations Patient History Date of Service: 10/17/17 Primary Care Provider: Dr. Dallas; Nephro-Dr. Howell; Card-Dr. Durham; Neuro- Dr. Villar Reason for admission: Fall History of Present Illness: 62-year-old female presented emergency room after a fall. Patient reported a fall early this morning. She fell forward on her knees. She was not able to get up. She actually had been seen last night in the emergency room for diarrhea that has been present for 2 weeks. During that time she saw all GI. An abdominal ultrasound was unremarkable. Last night she was sent home and told to take Imodium. Since that time she felt very weak at which point she fell this morning. She felt like her knees gave out. She was on the floor for about 2 hr. She did not hit her head. She normally walks using a walker. In the ER she was evaluated. Swelling and ecchymosis was noted to the knees bilateral. Some ecchymosis noted to her abdominal area. Patient was found to have bilateral tibial fractures. On the right side. It was comminuted. The left side showed tibial plateau fracture with a mild impacted fibula fracture. On lab hemoglobin 9.5, white count 9.1, BUN of 33, creatinine 2.09 with a GFR 24. Glucose 89. BNP 449. Troponin less than 0.03. Patient was admitted for further evaluation and treatment. When I saw the patient ER, she appeared stable. Pain was under control. I have discussed the case with orthopedics. Cardiology and Nephrology will be consulted as well. Allergies losartan [From Cozaar] Allergy (Severe, Verified 01/30/16 21:31) kidney injury clindamycin Allergy (Intermediate, Verified 01/30/16 21:31) Itching/Hives/Rash sulfamethoxazole [From Bactrim] Allergy (Unverified 10/17/17 00:25) Unknown trimethoprim [From Bactrim] Allergy (Unverified 10/17/17 00:25) Unknown Home medications list reviewed: Yes Home Medications: Albuterol Sulfate [Proair Hfa] 2 puff IH QID 01/10/16 Aspirin Chewable [Aspirin Chewable*] 81 mg PO DAILY 01/10/16 Azelastine HCl 1 spray IH DAILY 01/10/16 Esomeprazole Mag Trihydrate [Nexium] 40 mg PO DAILY 01/10/16 Fluticasone Propionate [Flovent Diskus] 50 mcg IH DAILY 01/10/16 Formoterol Fumarate [Perforomist*] 20 mcg IH BID 01/10/16 Hydralazine HCl [Apresoline] 100 mg PO Q6H 01/10/16 Magnesium Oxide [Mag 0X*] 400 mg PO BID 01/10/16 Sertraline [Zoloft*] 150 mg PO DAILY 01/10/16 Tiotropium [place] [Spiriva Respimat] 1 puff IH DAILY 01/10/16 Acetaminophen [Acetaminophen ER] 650 mg PO Q6HP PRN 01/31/16 Cyclosporine [Restasis] 1 gtt EACH EYE BID 01/31/16 Docusate [Colace Cap*] 1 cap PO DAILY 01/31/16 Ferrous Sulfate [Ferrous Sulfate*] 325 mg PO BID 01/31/16 Mag Hydroxide 8% [Milk Of Magnesia*] 30 ml PO DAILYPRN PRN 01/31/16 Carvedilol [Coreg*] 25 mg PO BID 6AM 6PM #60 tab 02/03/16 Isosorbide [place] (Bid) [Ismo 10 mg Tab*] 30 mg PO BID #60 tab 02/03/16 Amlodipine [Norvasc*] 10 mg PO DAILY #30 tab 02/07/16 Prednisone [Prednisone*] 10 mg PO DAILY #30 tab 02/07/16 Clonidine HCl [Catapres*] 0.1 mg PO DAILY PRN #30 tab 02/08/16 Doxazosin [Cardura*] 4 mg PO BEDTIME #30 tab 02/09/16 - Past Medical/Surgical History Diabetic: No -: COPD oxygen-dependent -: Chronic renal disease -: Hypertension -: GERD -: Depression with things -: Hyperlipidemia -: Carotid arterial disease -: Allergic rhinitis -: Colon polyps -: Neuropathy -: Tobacco abuse -: Colin hip replacements -: -: Tonsillectomy Psychosocial/ Personal History: Patient is currently living at home with her daughter - Family History Family History: Reviewed- Non-Contributory - Family History Father -: Heart disease, Hypertension, Cancer Notes: lung ca - Social History Smoking Status: Heavy Tobacco smoker (>10 cigarettes/day) Counseled patient to stop smoking for: less than 10 minutes Smoking therapy provided: Yes Patient receptive to therapy: Yes Alcohol use: No CD- Drugs: No Caffeine use: Yes Place of Residence: Home Review of Systems General: Weakness, Malaise, As per HPI Eyes: Unremarkable ENT: Unremarkable Respiratory: Unremarkable Cardiovascular: Unremarkable Gastrointestinal: Diarrhea, As per HPI Genitourinary: Unremarkable Musculoskeletal: As per HPI Integumentary: As per HPI Neurological: Weakness, As per HPI Lymphatics: Unremarkable Physical Examination - Physical Exam General: Alert, In no apparent distress, Oriented x3, Cooperative HEENT: Atraumatic, Normocephalic, Mucous membr. moist/pink Neck: Supple, No Thyromegaly Respiratory: Clear to auscultation bilaterally, Normal air movement Cardiovascular: Normal pulses, Regular rate/rhythm Gastrointestinal: Normal bowel sounds, Soft and benign, Non-distended, No tenderness, No masses, No rebound, No guarding, Other (Mild ecchymosis to the left abdominal region. No pain noted.) Musculoskeletal: Other (Swelling, ecchymoses to the knees bilaterally.) Integumentary: Other (Has stated above. Ecchymosis noted to the lower extremities and knees.) Neurological: Normal speech, Normal tone, Normal affect - Studies Laboratory Data (last 24 hrs) 10/17/17 13:05: PT 11.2, INR 0.95, APTT 27.2 10/17/17 13:05: WBC 9.1 D, Hgb 9.5 L, Hct 29.8 L, Plt Count 217 D 10/17/17 13:05: B-Natriuretic Peptide 449 H 10/17/17 13:05: Sodium 135, Potassium 4.0, BUN 33 H, Creatinine 2.09 H, Glucose 89, Magnesium 2.3 D, Total Bilirubin < 0.1 L, AST 13, ALT 7 L, Alkaline Phosphatase 51, Lipase 18 L Assessment and Plan - Problems (Diagnosis) (1) Fall Current Visit: Yes Status: Acute Plan: Patient with multiple fractures to the lower extremity. Case discussed with orthopedics. Patient will need knee immobilizers. Patient will likely need intervention on her left knee. Other consideration is to continue with knee immobilizers. Patient will likely be in a wheelchair for quite some time. Will have cardiology evaluate for cardiac clearance. Await further recommendations from orthopedics. Will provide medication for pain. Will keep heels elevated. Qualifiers: Encounter type: initial encounter Qualified Code(s): W19.XXXA - Unspecified fall, initial encounter (2) Closed fracture of both condyles of tibial plateau Current Visit: Yes Status: Acute Plan: Orthopedics to further assess and make recommendations. Patient will be in knee immobilizers at this time. Will provide medication for pain. Will keep heels elevated (3) Fibula fracture Current Visit: Yes Status: Acute Plan: Continue as above. Qualifiers: Encounter type: initial encounter Fracture type: closed Fracture morphology: comminuted Laterality: right (4) GERD (gastroesophageal reflux disease) Current Visit: Yes Status: Chronic Plan: Will provide medication Qualifiers: Esophagitis presence: esophagitis presence not specified Qualified Code(s) : K21.9 - Gastro-esophageal reflux disease without esophagitis (5) Neuropathy Current Visit: Yes Status: Chronic Plan: Will obtain and verify home medication. Will provide medication for pain. (6) Anemia Onset Date: 02/02/16 Current Visit: No Status: Chronic Plan: Patient has anemia of chronic disease. Will monitor closely. Qualifiers: Anemia type: other cause Other causes of anemia: chronic disease, other Qualified Code(s): D63.8 - Anemia in other chronic diseases classified elsewhere (7) CRF (chronic renal failure) Onset Date: 06/30/15 Current Visit: No Status: Chronic Plan: Patient with chronic renal disease. Nephrology consulted to further monitor and address. Will provide IV fluids. Qualifiers: Chronic kidney disease stage: stage 3 (moderate) Qualified Code(s): N18.3 - Chronic kidney disease, stage 3 (moderate) (8) Hypertension Onset Date: 06/30/15 Current Visit: No Status: Chronic Plan: Will provide medication. Qualifiers: Hypertension type: essential hypertension Qualified Code(s): I10 - Essential (primary) hypertension (9) COPD (chronic obstructive pulmonary disease) Onset Date: 10/09/15 Current Visit: No Status: Chronic Plan: Will provide medication. Qualifiers: Emphysema type: unspecified (10) Diarrhea Current Visit: Yes Status: Acute Plan: Will monitor stool. Will provide medication. C diff culture, rotavirus and stained done last night was negative. Qualifiers: Diarrhea type: unspecified type Qualified Code(s): R19.7 - Diarrhea, unspecified Discharge Plan: Skilled Nursing Plan to discharge in: Greater than 2 days - Advance Directives Does patient have a Living Will: No Does patient have a Durable POA for Healthcare: No - Code Status/Comfort Care Code Status Assessed: Yes Time Spent Managing Pts Care (In Minutes): 55
[2017-10-17] MEDS: ASPIRIN EC 81 MG TAB PO SCH (16:00)
[2017-10-17] MEDS: ARFORMOTEROL TARTRATE 15 MCG/2 ML VIAL.NEB NEB SCH (20:00)
[2017-10-17] MEDS ORDERED: ALBUTEROL 2.5 MG/3 ML NEB SOL NEB SCH (20:00)
--- NOTE | 2017-10-17 20:33 | P.CNS ---
Date of Consult: 10/17/17 Reason for Consult: MINDI/ CKD IV. Requesting Physician: Prosper Villanueva Primary Care Provider: Dr. Dallas; Nephro-Dr. Howell; Card-Dr. Durham; Neuro- Dr. Villar Chief Complaint: Fall History of Present Illness: 62-year-old female presented emergency room after a fall. Patient reported a fall early this morning. She fell forward on her knees. She was not able to get up. She actually had been seen last night in the emergency room for diarrhea that has been present for 2 weeks. During that time she saw all GI. An abdominal ultrasound was unremarkable. Last night she was sent home and told to take Imodium. Since that time she felt very weak at which point she fell this morning. She felt like her knees gave out. She was on the floor for about 2 hr. She did not hit her head. She normally walks using a walker. In the ER she was evaluated. Swelling and ecchymosis was noted to the knees bilateral. Some ecchymosis noted to her abdominal area. Patient was found to have bilateral tibial fractures. On the right side. It was comminuted. The left side showed tibial plateau fracture with a mild impacted fibula fracture. On lab hemoglobin 9.5, white count 9.1, BUN of 33, creatinine 2.09 with a GFR 24. Glucose 89. BNP 449. Troponin less than 0.03. Patient was admitted for further evaluation and treatment. 11:49 This 62 yrs old Female presents to ER via EMS with complaints of fall to erica bilateral knees. 11:49 The patient presents with decreased range of motion, an injury, pain, swelling, erica tenderness. The complaints affect the lateral aspect of left knee, medial aspect of left knee, left knee and left nowak, right knee and right nowak. Context: The problem was sustained at daycare, resulted from the patient falling, the patient is not able to bear weight, the patient is not able to ambulate. Onset: The symptoms/ episode began/occurred this morning, last night. Modifying factors: The symptoms are alleviated by remaining still, the symptoms are aggravated by movement. Associated signs and symptoms: The patient has no apparent associated signs or symptoms. Treatment prior to arrival includes: no previous treatment. Severity of symptoms: At their worst the symptoms were mild, moderate, in the emergency department the symptoms are unchanged. The patient has not experienced similar symptoms in the past. Allergies losartan [From Cozaar] Allergy (Severe, Verified 10/18/17 05:11) kidney injury clindamycin Allergy (Intermediate, Verified 10/18/17 05:11) Itching/Hives/Rash clonidine Allergy (Verified 10/18/17 10:40) Unknown sulfamethoxazole [From Bactrim] Allergy (Verified 10/18/17 05:11) Unknown trimethoprim [From Bactrim] Allergy (Verified 10/18/17 05:11) Unknown Home medications list reviewed: Yes Home Medications: Albuterol Sulfate [Proair Hfa] 8.5 gm IH DAILY PRN 10/18/17 Aspirin 81 mg PO DAILY 10/18/17 Carvedilol 25 mg PO BID 10/18/17 Cetirizine HCl [Zyrtec] 1 mg PO DAILY 10/18/17 Esomeprazole Mag Trihydrate [Nexium] 40 mg PO DAILY 10/18/17 Gabapentin [Neurontin*] 100 mg PO BID* PRN 10/18/17 Hydralazine [Apresoline*] 100 mg PO TID 10/18/17 Iron 18 mg PO DAILY 10/18/17 Isosorbide [place] (Bid) [Ismo 10 mg Tab*] 30 mg PO BID 10/18/17 Magnesium Oxide [Mag 0X*] 400 mg PO DAILY 10/18/17 Mirtazapine [Remeron*] 15 mg PO DAILY 10/18/17 Tramadol HCl [Ultram] 50 mg PO Q8HP PRN 10/18/17 Trazodone [Desyrel*] 200 mg PO BEDTIME 10/18/17 Umeclidinium Brm/Vilanterol Tr [Anoro Ellipta 62.5-25 Mcg INH] 1 inh IH DAILY - Past Medical/Surgical History Diabetic: No -: COPD oxygen-dependent -: Chronic renal disease -: Hypertension -: GERD -: Depression with things -: Hyperlipidemia -: Carotid arterial disease -: Allergic rhinitis -: Colon polyps -: Neuropathy -: Tobacco abuse -: MYALGIAS -: Colin hip replacements -: -: Tonsillectomy Psychosocial/ Personal History: Patient is currently living at home with her daughter - Family History Father Medical History: Heart disease, Hypertension, Cancer Notes: lung ca - Social History Smoking Status: Current every day smoker Alcohol use: No CD- Drugs: No Caffeine use: Yes Place of Residence: Home Review of Systems 10-point ROS is otherwise unremarkable General: Weakness, Malaise Musculoskeletal: Leg Pain Physical Examination Temp Pulse Resp BP Pulse Ox 98.4 F 76 18 114/65 10/17/17 11:31 10/17/17 19:57 10/17/17 19:57 10/17/17 19:57 General: Alert, Oriented x3, Cooperative HEENT: Atraumatic, Mucous membr. moist/pink Neck: Supple Respiratory: Clear to auscultation bilaterally Cardiovascular: No edema, Regular rate/rhythm, No rubs Gastrointestinal: Soft and benign, Non-distended, No guarding Musculoskeletal: No clubbing, No contractures Integumentary: No rashes, No cyanosis Neurological: Normal speech Laboratory Data (last 24 hrs) 10/17/17 13:05: PT 11.2, INR 0.95, APTT 27.2 10/17/17 13:05: WBC 9.1 D, Hgb 9.5 L, Hct 29.8 L, Plt Count 217 D 10/17/17 13:05: B-Natriuretic Peptide 449 H 10/17/17 13:05: Sodium 135, Potassium 4.0, BUN 33 H, Creatinine 2.09 H, Glucose 89, Magnesium 2.3 D, Total Bilirubin < 0.1 L, AST 13, ALT 7 L, Alkaline Phosphatase 51, Lipase 18 L Imagings Data: EXAM DESCRIPTION: RAD - Chest Single View - 10/17/2017 12:50 pm CLINICAL HISTORY: Cough COMPARISON: 02/05/2016 FINDINGS: Portable technique limits examination quality. The lungs are emphysematous but grossly clear. The heart is normal in size. No displaced fractures. IMPRESSION: No acute intrathoracic process suspected. Conclusions/Impression: A/ MINDI/ CKD IV. Hyponatremia. HTN with CKD. Diastolic CHF, chronic. Anemia in chronic illness. Iron deficiency. Multiple LE traumatic fractures sp fall. Chronic pain syndrome. P/ Continue current POC and Medications. Follow up with surgery for multiple fractures. Transfuse as needed. Start Vitamin D. AM labs. Daily weight. No NSAIDs. Thank you kindly for the consultation.
[2017-10-17] MEDS: LACTOBACILLUS/ACIDOPHILUS TAB PO SCH (20:50)
[2017-10-17 21:40] LABS: Hematocrit 26.1 % (36.0-45.0)
[2017-10-17] MEDS: PANTOPRAZOLE 40MG TABLET PO SCH (21:49)
[2017-10-17] MEDS: NA CHLORIDE 0.9% 1,000 ML IV SCH (21:49)
[2017-10-17] MEDS: ENOXAPARIN 40 MG/0.4 ML SQ SCH (21:49)
--- NOTE | 2017-10-17 23:03 | CON ---
History Of Present Illness: Mrs. Asher is 62. She is in the hospital because she fell. She got little lightheaded and fell. She fell on both knees. Both knees were splayed out laterally. Now, s he has fractures in various parts of her legs. Dr. Villanueva was concerned that she would probably need surgery. I was asked to evaluate her risk of perioperative cardiac complications. The patient has a history of carotid stenosis 50% to 60% range. She has not had a carotid endarterectomy or a stent. She has no history of coronary stents. She is a regular tobacco user and would be considered to key ve fairly high risk for developing atherosclerosis, but so far has not had an acute coronary syndrome or a stent or heart attack. I think she has had TIAs, but no actual strokes. The patient denies ch est pain, shortness of breath, tightness, squeezing, or anything that sounds remotely like angina. H er lungs are clear. The heart reveals a regular rate and rhythm. I do not detect a diastolic murmur . There is a systolic murmur that is grade 2/6 systolic ejection type murmur. I believe in the past she is known to have aortic sclerosis without stenosis. Her physical exam would not suggest that jojo brink has critical aortic stenosis. She reports drug intolerance to losartan, clindamycin, sulfamethoxaz ole, trimethoprim. She has had an echocardiogram, but the last one was 2 years ago and was normal ex cept for a dilated left atrium. There was a little bit of aortic regurgitation. Her distal pulses a re normal. Her electrocardiogram reveals sinus rhythm with PVCs, otherwise seems to be normal. Impression: Mrs. Asher is an acceptable risk if she needs surgery to repair broken bones, I am no t sure we have actually gotten to the point where her surgeon has recommended surgery. Orthopedic co nsult is to follow. It seems the main injury is fracture of the tibial plateau, not the long bones a nd I am not sure what the surgical approach will be to that. Thank you very much for your kind referral of Ms. Asher. I will follow her with you. JOJO/AZALEA Voice ID: [id number] Report ID: [id number]
[2017-10-18] MEDS: FENTANYL CITR 100 MCG/2 ML IV PRN ×4 (02:48→21:32)
[2017-10-18 05:13] LABS: Absolute Lymphocytes (CBC) 0.6 K/uL (0.7-4.9); Absolute Monocytes 0.5 K/uL (0.1-1.3); Absolute Neutrophil 5.3 K/uL (1.8-8.0); Basophils % 0.5 % (0-1.3); Eosinophils % 0.3 % (0-4.4); Hematocrit 21.2 % (36.0-45.0); Lymphocytes % 8.9 % (15.3-44.8); MCH 30.6 pg (27.0-35.0); MCV 91.8 fL (80-100); MPV 8.5 fL (7.6-11.3); Monocytes % 8.2 % (3.3-12.3); RBC Red Blood Cell Count 2.31 M/uL (3.86-4.86)
[2017-10-18] MEDS: NA CHLORIDE 0.9% 1,000 ML IV SCH ×2 (05:42→17:20)
[2017-10-18 06:07] LABS: Magnesium 2.2 mg/dL (1.8-2.5); Phosphorus 5.3 mg/dL (2.5-4.3); Potassium 4.7 mEq/L (3.6-5.0); Uric Acid 10.6 mg/dL (2.6-8.0)
[2017-10-18] MEDS ORDERED: FUROSEMIDE 20 MG/ 2ML VIAL IV ONE ×2 (06:59→19:00)
[2017-10-18] MEDS: HYDROCODONE/APAP 7.5/325 MG TAB PO PRN (07:04)
[2017-10-18 07:29] LABS: Thyroid Stimulating Hormone 0.96 uIU/mL (0.34-5.60)
[2017-10-18] MEDS: PANTOPRAZOLE 40MG TABLET PO SCH (07:30)
[2017-10-18] MEDS: ARFORMOTEROL TARTRATE 15 MCG/2 ML VIAL.NEB NEB SCH ×2 (07:56→19:51)
[2017-10-18] MEDS: ONDANSETRON 4 MG/2 ML VIAL IV PRN (08:42)
[2017-10-18] MEDS: VITAMIN D 5,000 UNIT CAP PO SCH (08:43)
[2017-10-18] MEDS: ASPIRIN EC 81 MG TAB PO SCH (08:43)
[2017-10-18] MEDS: CALCITROL 0.25 MCG CAP PO SCH (08:43)
[2017-10-18] MEDS: LACTOBACILLUS/ACIDOPHILUS TAB PO SCH ×2 (08:43→20:16)
[2017-10-18] MEDS: ENOXAPARIN 40 MG/0.4 ML SQ SCH (08:45)
--- NOTE | 2017-10-18 10:23 | P.PN ---
Subjective Date of Service: 10/18/17 Primary Care Provider: Dr. Dallas; Nephro-Dr. Howell; Card-Dr. Durham; Neuro- Dr. Villar Chief Complaint: Fall Subjective: Doing well Physical Examination - Vital Signs Temperature: 98.6 F Blood Pressure: 121/59 Pulse: 86 Respirations: 20 Pulse Ox (%): 97 - Physical Exam General: Alert, In no apparent distress, Oriented x3, Cooperative HEENT: Atraumatic Neck: Supple Respiratory: Clear to auscultation bilaterally, Normal air movement Cardiovascular: Normal pulses, Regular rate/rhythm Gastrointestinal: Normal bowel sounds, Soft and benign, Non-distended, No tenderness, No masses, No rebound, No guarding Musculoskeletal: Other (Both knees immobilized) Neurological: Normal speech, Normal strength at 5/5 x4 extr, Normal tone, Normal affect - Studies Laboratory Data (last 24 hrs) 10/17/17 13:05: PT 11.2, INR 0.95, APTT 27.2 10/17/17 13:05: WBC 9.1 D, Hgb 9.5 L, Hct 29.8 L, Plt Count 217 D 10/17/17 13:05: B-Natriuretic Peptide 449 H 10/17/17 13:05: Sodium 135, Potassium 4.0, BUN 33 H, Creatinine 2.09 H, Glucose 89, Magnesium 2.3 D, Total Bilirubin < 0.1 L, AST 13, ALT 7 L, Alkaline Phosphatase 51, Lipase 18 L Medications List Reviewed: Yes Assessment & Plan - Problems (Diagnosis) (1) Fall Onset Date: 10/18/17 Current Visit: Yes Status: Acute Plan: Patient with multiple fractures to the lower extremity. Case discussed with orthopedics. Patient with knee immobilizers. Patient will have intervention to her left knee tomorrow. Patient will need to be off her feet for 10-12 weeks. Will discuss with social media developer about plan of care. Patient previously using walker at home. Patient with anemia. Patient will get 2 units of blood. Will monitor this closely. Patient has been cleared for surgery by Cardiology. Renal function slightly compromise. Will continue with IV fluids. Will discuss with nephrology. Encourage incentive spirometer. Will continue with her home medications. Qualifiers: Encounter type: initial encounter Qualified Code(s): W19.XXXA - Unspecified fall, initial encounter (2) Closed fracture of both condyles of tibial plateau Onset Date: 10/18/17 Current Visit: Yes Status: Acute Plan: Case discussed with orthopedics. Will continue with above plan of care. Surgery planned for tomorrow. (3) Fibula fracture Onset Date: 10/18/17 Current Visit: Yes Status: Acute Plan: Continue as above. Qualifiers: Encounter type: initial encounter Fracture type: closed Fracture morphology: comminuted Laterality: right (4) GERD (gastroesophageal reflux disease) Onset Date: 10/18/17 Current Visit: Yes Status: Chronic Plan: Will continue with medication Qualifiers: Esophagitis presence: esophagitis presence not specified Qualified Code(s) : K21.9 - Gastro-esophageal reflux disease without esophagitis (5) Neuropathy Onset Date: 10/18/17 Current Visit: Yes Status: Chronic Plan: Will obtain and verify home medication. Will provide medication for pain. (6) Anemia Onset Date: 02/02/16 Current Visit: No Status: Acute Plan: Patient with anemia of chronic disease. Anemia noted at this time likely from fracture. Will transfuse 2 units. Will monitor closely. Patient may require further transfusions. Qualifiers: Anemia type: other cause Other causes of anemia: chronic disease, other Qualified Code(s): D63.8 - Anemia in other chronic diseases classified elsewhere (7) CRF (chronic renal failure) Onset Date: 06/30/15 Current Visit: No Status: Acute Plan: Acute on chronic renal disease noted. Will continue with IV fluids. Will discuss case with nephrology. Qualifiers: Chronic kidney disease stage: stage 3 (moderate) Qualified Code(s): N18.3 - Chronic kidney disease, stage 3 (moderate) (8) Hypertension Onset Date: 06/30/15 Current Visit: No Status: Chronic Plan: Will provide medication. Qualifiers: Hypertension type: essential hypertension Qualified Code(s): I10 - Essential (primary) hypertension (9) COPD (chronic obstructive pulmonary disease) Onset Date: 10/09/15 Current Visit: No Status: Chronic Plan: Will continue the medication Qualifiers: Emphysema type: unspecified (10) Diarrhea Onset Date: 10/18/17 Current Visit: Yes Status: Acute Plan: Will monitor stool. Will provide medication. C diff culture, rotavirus and stained done prior to admission was negative. Qualifiers: Diarrhea type: unspecified type Qualified Code(s): R19.7 - Diarrhea, unspecified Discharge Plan: Snf Plan to discharge in: Greater than 2 days Time Spent Managing Pts Care (In Minutes): 55
[2017-10-18] MEDS ORDERED: NA CHLORIDE 0.9% 250 ML ONE (11:43)
--- NOTE | 2017-10-18 14:08 | ECHO ---
HEIGHT: 5 ft 1 in WEIGHT: 92 lb 9 oz DATE OF STUDY: 10/18/[address]: 2-DIMENSIONAL: YES M.MODE: YES DOPPLER: YES COLOR FLOW: YES TDS: YES PORTABLE: NO DEFINITY: NO BUBBLE STUDY: NO DIAGNOSIS: CARDIAC CLEARANCE. CARDIAC HISTORY: CATHERIZATION: NO SURGERY: NO PROSTHETIC VALVE: NO PACEMAKER: NO MEASUREMENTS (cm) DIASTOLIC (NORMALS) SYSTOLIC (NORMALS) IVSd 0.9 (0.6-1.2) LA Diam 3.7 (1.9-4.0) LVEF 73% LVIDd 3.6 (3.5-5.7) LVIDs 2.1 (2.0-3.5) %FS 41% LVPWd 1.0 (0.6-1.2) Ao Diam 2.8 (2.0-3.7) 2 DIMENSIONAL ASSESSMENT: RIGHT ATRIUM: NORMAL LEFT ATRIUM: NORMAL RIGHT VENTRICLE: NORMAL LEFT VENTRICLE: NORMAL TRICUSPID VALVE: NORMAL MITRAL VALVE: NORMAL PULMONIC VALVE: NORMAL AORTIC VALVE: NORMAL PERICARDIAL EFFUSION: NONE AORTIC ROOT: NORMAL LEFT VENTRICULAR WALL MOTION: NORMAL DOPPLER/COLOR FLOW: NORMAL COMMENTS: TECHNICALLY DIFFICULT STUDY. GROSSLY NORMAL LEFT VENTRICULAR SIZE AND FUNCTION. NO EFFUSION. TECHNOLOGIST: VIANEY CUEVAS RDCS
--- NOTE | 2017-10-18 14:19 | PN ---
Date of Progress Note: 10/18/2017 Subjective: Seeing the patient today. Her hemoglobin has dropped to 7.1 for unknown reason, but it is assumed by the hospitalist as anemia of chronic disease. I do not really believe that the fractur es have caused this. She is getting transfusion and she is planned to get 2 units today. Her skin i s examined. It does wrinkle. There is no sign of fracture blister. Her heels are nontender and are off the bed. Assessment: Bilateral proximal tibia fractures. Plan: At this time, I believe that the left side definitely needs operative intervention as the tibi al tubercle is highly displaced as well as an angular deformity of the shaft. The fracture does exte nd up into the tibial plateau as well. We will plan on open reduction and internal fixation with per iarticular tibial locking plate, probable fixation of the greater tuberosity with suture or suture an chors as she is osteopenic enough, but I do not believe that would necessarily except any screw or ot her fixation, and suture fixation may be the best that we can achieve. The patient says that she und erstands this. Also on the right side, she also has a proximal fracture. This appears to be left di splaced. She does also have a tibial tubercle fracture. This is less displaced. We will make an as sessment under anesthesia for stability of the fracture and make a decision on whether or not the tib ial tubercle or the tibial plateau needs to be addressed also tomorrow. This will be an operative de cision, which will be guided by use of x-rays and possible gentle stressing of the fracture. There i s a possibility that we may only address the tibial tubercle fracture in order to allow early motion in the brace. This has been expressed to the patient. Her family is not currently there, but the pl ans have been discussed with them yesterday previously. Also, consent is on the chart. We have left instructions on our plan with the patient and written down for her, so she can discuss with her family. We will m ost likely move forward at 0830. /AZALEA Voice ID: [id number] Report ID: [id number]
[2017-10-18 15:12] LABS: Urine Appearance CLEAR; Urine Bilirubin NEGATIVE (NEG); Urine Blood NEGATIVE (NEG); Urine Color YELLOW; Urine Glucose NEGATIVE (NEG); Urine Protein NEGATIVE (NEG); Urine Urobilinogen 0.2 mg/dL (0.2-1.0); Urine pH 5.5 (5.0-7.0)
[2017-10-18 15:14] LABS: Urine Microscopic Reflex ORDER UMIC
[2017-10-18 15:31] LABS: Urine Bacteria NONE SEEN /HPF (<20); Urine Culture Reflex Order NOT NEEDED; Urine RBC NONE SEEN /HPF (NONE SEEN)
[2017-10-18] MEDS ORDERED: NA CHLORIDE 0.9% 50 ML ONE (16:12)
--- NOTE | 2017-10-18 17:22 | CON ---
Date of Consultation: 10/17/2017 History Of Present Illness: This was my first time seeing this patient to my knowledge. She apparen tly fell with her knees together in an almost W sitting position. She has had a previous history of bilateral hip arthroplasties. I am called to see her because x-rays demonstrated fracture of bilater al tibias. She has had CT scan, which demonstrated a comminuted fracture of both the right and left tibial plateaus. The left appears to be involving more of the shaft with the deformity. The right a ppears to be essentially nondisplaced. My understanding is that she is a minimal ambulator with a wa lker. There is no sign of an open injury. Physical Examination: All the long bones and joints palpated without pain or crepitation with exception of both of her knee s, both of which have ecchymosis, also swollen and painful. She does have good plantar flexion and d orsiflexion of her feet. Her daughter is with her at this time. Daughter says that she has been see n and examined by Dr. Durham, who has cleared her from a cardiac standpoint. Assessment: A young lady with bilateral tibial plateau fractures. Her left I think would do better with operative intervention, even though she is a minimal ambulator because of the deformity. I rocio díaze that she can eat now and I think her last dose of Lovenox should be tomorrow morning. We will ch jake her skin tomorrow afternoon. If her skin does wrinkle and she does not develop fracture blisters , we will move forward with open reduction and internal fixation of the left tibia on Tuesday, most likely treating the right closed with placement of a hinged knee brace approximately 2 weeks after i njury, otherwise leaving her in a knee immobilizer. I am very concerned that she could develop decub itus ulcers either on her heels or on her sacrum. I have told the patient and the patient's family t reji should watch to make sure it heals off to the ground and make sure that she is turn frequently. As far as her length of stay in the hospital, I think she will be nonweightbearing on both lower extr emities probably for at least 10-12 weeks, maybe longer. Therefore, social issues will be somewhat d aunting. Risks, benefits, and alternatives to treatment methods have been discussed with both her and her family. They state they understand things as prese nted and wished to proceed. /AZALEA Voice ID: [id number] Report ID: [id number]
[2017-10-18] MEDS: HYDRALAZINE HCL 20 MG/ML VIAL IV PRN (18:36)
[2017-10-18] MEDS: ENSURE ENLIVE 237 ML CAN PO SCH (20:28)
[2017-10-18 20:40] LABS: Hematocrit 30.1 % (36.0-45.0)
--- NOTE | 2017-10-18 21:24 | P.PN ---
Date of Service: 10/18/17 Vital Signs Temp Pulse Resp BP Pulse Ox 98.9 F 79 16 199/81 H 96 10/18/17 16:00 10/18/17 18:36 10/18/17 16:00 10/18/17 18:36 10/18/17 16:00 Medications Acetaminophen (Tylenol -Extra Strength) 500 mg PO Q4HP PRN PRN Reason: [id number] Stop: 11/16/17 15:32 Hydrocodone Bitart/Acetaminophen ([place] 7.5/325 Mg) 1 tab PO Q6H PRN PRN Reason: PAIN MODERATE TO SEVERE Stop: 11/16/17 15:32 Last Admin: 10/18/17 07:04 Dose: 1 tab Albuterol Sulfate (Proventil 0.083% Neb Soln) 2.5 mg NEB [id number] PRN PRN Reason: SHORTNESS OF BREATH Stop: 11/16/17 20:01 Last Admin: 10/17/17 20:32 Dose: 2.5 mg Arformoterol Tartrate (Brovana) 15 mcg NEB BIDRESP SUSAN Stop: 11/16/17 20:01 Last Admin: 10/18/17 19:51 Dose: Not Given Aspirin (Aspirin Ec) 81 mg PO DAILY SUSAN Stop: 11/16/17 16:01 Last Admin: 10/18/17 08:43 Dose: Not Given Calcitriol (Rocaltrol) 0.5 mcg PO DAILY SUSAN Stop: 11/17/17 09:01 Last Admin: 10/18/17 08:43 Dose: Not Given Cholecalciferol (Vitamin D 5,000 Iu Cap) 5,000 unit PO DAILY SUSAN Stop: 11/17/17 09:01 Last Admin: 10/18/17 08:43 Dose: Not Given Fentanyl Citrate (Sublimaze) 25 mcg IV Q4H PRN PRN Reason: PAIN SEVERE Stop: 11/16/17 15:32 Last Admin: 10/18/17 17:48 Dose: 25 mcg Hydralazine HCl (Apresoline) 10 mg IV Q6HP PRN PRN Reason: HIGH BP Stop: 11/16/17 15:32 Last Admin: 10/18/17 18:36 Dose: 10 mg Sodium Chloride (Ns 1000 Ml Ivbag) 1,000 mls @ 75 mls/hr IV .[id number] SUSAN Stop: 11/16/17 16:01 Last Admin: 10/18/17 17:20 Dose: Not Given Ipratropium [place] (Atrovent Neb) 0.5 mg NEB [id number] PRN PRN Reason: SHORTNESS OF BREATH Stop: 11/16/17 20:01 Last Admin: 10/17/17 20:32 Dose: 0.5 mg Lactobacillus Acidoph/Bulgaricus (Lactinex) 1 tab PO BID SUSAN Stop: 11/16/17 21:01 Last Admin: 10/18/17 20:16 Dose: 1 tab Nutritional Formula (Ensure Enlive) 237 ml PO BID SUSAN Stop: 11/17/17 21:01 Last Admin: 10/18/17 20:28 Dose: Not Given Ondansetron HCl (Zofran) 4 mg IV Q6HP PRN PRN Reason: NAUSEA / VOMITING Stop: 11/16/17 15:32 Last Admin: 10/18/17 08:42 Dose: 4 mg Pantoprazole Sodium (Protonix Tab) 40 mg PO ACB SUSAN Stop: 11/16/17 16:01 Last Admin: 10/18/17 07:30 Dose: Not Given Sodium Chloride (Normal Saline Flush) 10 ml IV BID SUSAN Stop: 11/16/17 21:01 Last Admin: 10/18/17 20:18 Dose: Not Given Tramadol HCl (Ultram) 50 mg PO TID PRN PRN Reason: PAIN MILD Stop: 11/16/17 15:32 Assessment/ Plan: Nephrology CPS stable without CP or SOB. No acute events overnight. Pain 70/10. Vitals, medications, blood work and imaging reviewed in the chart. General: Alert, Oriented x3, Cooperative HEENT: Atraumatic, Mucous membr. moist/pink Neck: Supple Respiratory: Clear to auscultation bilaterally Cardiovascular: LE edema 1+ L>R, Regular rate/rhythm, No rubs Gastrointestinal: Soft and benign, Non-distended, No guarding Musculoskeletal: No clubbing, No contractures Integumentary: No rashes, No cyanosis Neurological: Normal speech Laboratory Data (last 24 hrs) 10/17/17 13:05: PT 11.2, INR 0.95, APTT 27.2 10/17/17 13:05: WBC 9.1 D, Hgb 9.5 L, Hct 29.8 L, Plt Count 217 D 10/17/17 13:05: B-Natriuretic Peptide 449 H 10/17/17 13:05: Sodium 135, Potassium 4.0, BUN 33 H, Creatinine 2.09 H, Glucose 89, Magnesium 2.3 D, Total Bilirubin < 0.1 L, AST 13, ALT 7 L, Alkaline Phosphatase 51, Lipase 18 L Imagings Data: EXAM DESCRIPTION: RAD - Chest Single View - 10/17/2017 12:50 pm CLINICAL HISTORY: Cough COMPARISON: 02/05/2016 FINDINGS: Portable technique limits examination quality. The lungs are emphysematous but grossly clear. The heart is normal in size. No displaced fractures. IMPRESSION: No acute intrathoracic process suspected. Conclusions/Impression: A/ MINDI/ CKD IV. Acidosis. Hyponatremia. HTN with CKD. Diastolic CHF, chronic. Anemia in chronic illness. Iron deficiency. Multiple LE traumatic fractures sp fall. Chronic pain syndrome. P/ Continue current POC and Medications. Follow up with surgery for multiple fractures. Agree with blood transfusion. Monitor volume status. AM labs. Daily weight. No NSAIDs.
--- NOTE | 2017-10-18 23:25 | CON ---
Date of Consultation: 10/18/[address] to Dr. Villanueva' service on 10/17/2017. I saw the patient on 10/18/2017 Reason For Consultation: Tibial fracture and cardiac clearance for Dr. Tillman. History Of Present Illness: Ms. Asher is a 62-year-old woman. She has no previous cardiac histor y, but has a history of severe hypertension, severe COPD on home oxygen, chronic renal disease, gastr oesophageal reflux disease, dyslipidemia, cerebrovascular disease, tobacco abuse. She came after the fall, noted to have tibial fracture. No cardiac symptoms. No syncope. No palpitation. Allergies: SHE IS ALLERGIC TO LOSARTAN, CLINDAMYCIN, AND BACTRIM. Review of Systems: Negative. Social History: Positive for tobacco and being on home oxygen. Family History: Noncontributory. Medications: At home include Cardura, Norvasc, clonidine, Coreg, hydralazine, Nexium, Imdur and has been on multiple inhalers. Physical Examination: Vital Signs: Stable. She was afebrile. She was in a sinus rhythm. HEENT: Negative. Neck: Supple without bruit, lymphadenopathy, or JVD. Chest: Revealed poor airway movement, but no rales or wheezing. Cardiac: Revealed a regular rhythm and rate. No murmur, gallops, or rubs. Abdomen: Benign. Extremities: Revealed no clubbing, cyanosis, or edema. Diagnostic Data: EKG shows sinus rhythm with PVC. Chest x-ray is negative. Creatinine is 2.08. He moglobin 8.8. Impression And Plan: 1.Ms. Asher is considered moderate risk for her surgery based on her pulmonary status rather than anything else. She also has renal insufficiency and anemia. The patient understands the risk of patterson rgery if needed. 2.Hypertension. 3.Chronic obstructive pulmonary disease. 4.Gastroesophageal reflux disease. 5.Chronic renal insufficiency. 6.Dyslipidemia. 7.Peripheral vascular disease, currently is stable. 8.Tobacco abuse. I will be available for questions doing and after surgery and we will follow her along with Dr. Farrah harrington. Ms. Asher in the ICU postoperatively. NB/MODL Voice ID: [id number] Report ID: [id number]
[2017-10-19] MEDS: FENTANYL CITR 100 MCG/2 ML IV PRN ×2 (01:31→05:28)
[2017-10-19] MEDS: NA CHLORIDE 0.9% 1,000 ML IV SCH ×3 (01:36→20:55)
[2017-10-19 05:14] LABS: Absolute Lymphocytes (CBC) 0.6 K/uL (0.7-4.9); Absolute Monocytes 0.7 K/uL (0.1-1.3); Absolute Neutrophil 5.1 K/uL (1.8-8.0); Basophils % 0.7 % (0-1.3); Eosinophils % 2.8 % (0-4.4); Hematocrit 26.3 % (36.0-45.0); Lymphocytes % 9.5 % (15.3-44.8); MCV 88.5 fL (80-100); MPV 8.2 fL (7.6-11.3); Monocytes % 10.4 % (3.3-12.3); RBC Red Blood Cell Count 2.97 M/uL (3.86-4.86)
[2017-10-19 05:41] LABS: Magnesium 1.8 mg/dL (1.8-2.5); Potassium 4.3 mEq/L (3.6-5.0); Uric Acid 10.4 mg/dL (2.6-8.0)
[2017-10-19] MEDS: PANTOPRAZOLE 40MG TABLET PO SCH (07:30)
[2017-10-19] MEDS: ARFORMOTEROL TARTRATE 15 MCG/2 ML VIAL.NEB NEB SCH ×2 (07:45→19:05)
[2017-10-19] MEDS: HYDRALAZINE HCL 20 MG/ML VIAL IV PRN (07:54)
[2017-10-19] MEDS: ENSURE ENLIVE 237 ML CAN PO SCH ×2 (07:59→20:52)
[2017-10-19] MEDS: ASPIRIN EC 81 MG TAB PO SCH (07:59)
[2017-10-19] MEDS: CALCITROL 0.25 MCG CAP PO SCH (07:59)
[2017-10-19] MEDS: LACTOBACILLUS/ACIDOPHILUS TAB PO SCH ×2 (07:59→20:51)
[2017-10-19] MEDS: VITAMIN D 5,000 UNIT CAP PO SCH (08:00)
[2017-10-19] MEDS ORDERED: Ringers Lactate 1,000 ML IV ONE ×2 (08:13→10:44)
[2017-10-19] MEDS ORDERED: PROPOFOL 200 MG/20 ML VIAL IV ONE (08:31)
[2017-10-19] MEDS ORDERED: ROCURONIUM 50 MG/5 ML VIAL IV ONE (08:32)
[2017-10-19] MEDS ORDERED: GLYCOPYRROLATE 0.2 MG/ML SYR ONE (08:32)
[2017-10-19] MEDS ORDERED: MIDAZOLAM HCL 2 MG/2 ML INJ ONE (08:33)
[2017-10-19] MEDS ORDERED: FENTANYL CITR 250 MCG/5 ML ONE (08:33)
[2017-10-19] MEDS ORDERED: EPHEDRINE SULF 50 MG/5 ML SYR ONE (08:56)
[2017-10-19] MEDS ORDERED: CEFAZOLIN SODIUM 1 GM/VIAL ONE (09:02)
--- NOTE | 2017-10-19 11:10 | RAD REPORT ---
EXAM DESCRIPTION: RAD - Tib Fib Left - 10/19/2017 10:59 am CLINICAL HISTORY: Tibia fracture FINDINGS: Multiple fluoroscopic intraoperative films are submitted. They demonstrate plate and screws affixing a proximal tibial fracture. Surgery was performed by Dr. Tillman
[2017-10-19] MEDS: MEPERIDINE HCL 50 MG/ML AMP ONE ×2 (11:13→11:42)
[2017-10-19] MEDS: ISOSORBIDE MONO SR 30 MG TAB PO SCH ×2 (16:18→20:55)
[2017-10-19] MEDS: CARVEDILOL 25 MG TAB PO SCH ×2 (16:18→20:51)
[2017-10-19] MEDS: HYDRALAZINE HCL 25 MG TABLET PO SCH ×2 (16:18→20:52)
--- NOTE | 2017-10-19 17:17 | P.PN ---
Date of Service: 10/19/17 Vital Signs Temp Pulse Resp BP Pulse Ox 97.9 F 86 17 217/102 H 98 10/19/17 12:45 10/19/17 16:18 10/19/17 12:45 10/19/17 16:18 10/19/17 12:45 Medications Acetaminophen (Tylenol -Extra Strength) 500 mg PO Q4HP PRN PRN Reason: [id number] Stop: 11/16/17 15:32 Hydrocodone Bitart/Acetaminophen ([place] 7.5/325 Mg) 1 tab PO Q6H PRN PRN Reason: PAIN MODERATE TO SEVERE Stop: 11/16/17 15:32 Last Admin: 10/18/17 07:04 Dose: 1 tab Albuterol Sulfate (Proventil 0.083% Neb Soln) 2.5 mg NEB [id number] PRN PRN Reason: SHORTNESS OF BREATH Stop: 11/16/17 20:01 Last Admin: 10/17/17 20:32 Dose: 2.5 mg Arformoterol Tartrate (Brovana) 15 mcg NEB BIDRESP [facility] Stop: 11/16/17 20:01 Last Admin: 10/19/17 07:45 Dose: 15 mcg Aspirin (Aspirin Ec) 81 mg PO DAILY SUSAN Stop: 11/16/17 16:01 Last Admin: 10/19/17 07:59 Dose: Not Given Calcitriol (Rocaltrol) 0.5 mcg PO DAILY SUSAN Stop: 11/17/17 09:01 Last Admin: 10/19/17 07:59 Dose: Not Given Carvedilol (Coreg) 25 mg PO BID [facility] Stop: 11/18/17 21:01 Last Admin: 10/19/17 16:18 Dose: 25 mg Cholecalciferol (Vitamin D 5,000 Iu Cap) 5,000 unit PO DAILY SUSAN Stop: 11/17/17 09:01 Last Admin: 10/19/17 08:00 Dose: Not Given Fentanyl Citrate (Sublimaze) 25 mcg IV Q4H PRN PRN Reason: PAIN SEVERE Stop: 11/16/17 15:32 Last Admin: 10/19/17 05:28 Dose: 25 mcg Gabapentin (Neurontin) 100 mg PO BIDP PRN PRN Reason: MUSCLE SPASMS Stop: 11/18/17 11:02 Home Med (Cetirizine Hcl [Zyrtec]) 1 mg PO DAILY [facility] Stop: 11/19/17 09:01 Home Med (Iron [Iron]) 18 mg PO DAILY [facility] Stop: 11/19/17 09:01 Home Med (Umeclidinium Brm/Vilanterol Tr [Anoro Ellipta 62.5-25 Mcg Inh]) 1 inh IH DAILY [facility] Stop: 11/19/17 09:01 Hydralazine HCl (Apresoline) 100 mg PO TID SUSAN Stop: 11/18/17 17:01 Last Admin: 10/19/17 16:18 Dose: 100 mg Sodium Chloride (Ns 1000 Ml Ivbag) 1,000 mls @ 75 mls/hr IV .[id number] [facility] Stop: 11/16/17 16:01 Last Admin: 10/19/17 08:00 Dose: Not Given Ipratropium [place] (Atrovent Neb) 0.5 mg NEB [id number] PRN PRN Reason: SHORTNESS OF BREATH Stop: 11/16/17 20:01 Last Admin: 10/17/17 20:32 Dose: 0.5 mg Isosorbide Mononitrate (Imdur) 30 mg PO BID [facility] Stop: 11/18/17 21:01 Last Admin: 10/19/17 16:18 Dose: 30 mg Lactobacillus Acidoph/Bulgaricus (Lactinex) 1 tab PO BID [facility] Stop: 11/16/17 21:01 Last Admin: 10/19/17 07:59 Dose: Not Given Nutritional Formula (Ensure Enlive) 237 ml PO BID [facility] Stop: 11/17/17 21:01 Last Admin: 10/19/17 07:59 Dose: Not Given Ondansetron HCl (Zofran) 4 mg IV Q6HP PRN PRN Reason: NAUSEA / VOMITING Stop: 11/16/17 15:32 Last Admin: 10/18/17 08:42 Dose: 4 mg Pantoprazole Sodium (Protonix Tab) 40 mg PO ACB [facility] Stop: 11/16/17 16:01 Last Admin: 10/19/17 07:30 Dose: Not Given Sodium Chloride (Normal Saline Flush) 10 ml IV BID [facility] Stop: 11/16/17 21:01 Last Admin: 10/19/17 08:00 Dose: Not Given Tramadol HCl (Ultram) 50 mg PO TID PRN PRN Reason: PAIN MILD Stop: 11/16/17 15:32 Assessment/ Plan: Nephrology CPS stable without CP or SOB. No acute events overnight. Persistent knee pain bilaterally. Vitals, medications, blood work and imaging reviewed in the chart. General: Alert, Oriented x3, Cooperative HEENT: Atraumatic, Mucous membr. moist/pink Neck: Supple Respiratory: Clear to auscultation bilaterally Cardiovascular: LE edema 1+ L>R, Regular rate/rhythm, No rubs Gastrointestinal: Soft and benign, Non-distended, No guarding Musculoskeletal: No clubbing, No contractures Integumentary: No rashes, No cyanosis Neurological: Normal speech Laboratory Data (last 24 hrs) 10/17/17 13:05: PT 11.2, INR 0.95, APTT 27.2 10/17/17 13:05: WBC 9.1 D, Hgb 9.5 L, Hct 29.8 L, Plt Count 217 D 10/17/17 13:05: B-Natriuretic Peptide 449 H 10/17/17 13:05: Sodium 135, Potassium 4.0, BUN 33 H, Creatinine 2.09 H, Glucose 89, Magnesium 2.3 D, Total Bilirubin < 0.1 L, AST 13, ALT 7 L, Alkaline Phosphatase 51, Lipase 18 L Imagings Data: EXAM DESCRIPTION: RAD - Chest Single View - 10/17/2017 12:50 pm CLINICAL HISTORY: Cough COMPARISON: 02/05/2016 FINDINGS: Portable technique limits examination quality. The lungs are emphysematous but grossly clear. The heart is normal in size. No displaced fractures. IMPRESSION: No acute intrathoracic process suspected. Conclusions/Impression: A/ MINDI/ CKD IV. Acidosis. Hyponatremia. HTN with CKD. Diastolic CHF, chronic. Anemia in chronic illness. Iron deficiency. Multiple LE traumatic fractures sp fall. Chronic pain syndrome. P/ Continue current POC and Medications. Surgery this morning at 0830. Lasix as needed. Consider a CXR in the AM. Monitor volume status. Pain control as needed. AM labs. Daily weight. No NSAIDs.
[2017-10-19] MEDS ORDERED: LABETALOL 20 MG/4ML SYRINGE IV PRN (17:19)
--- NOTE | 2017-10-19 17:35 | PN ---
Date of Progress Note: 10/19/2017 Subjective: The patient is seen and examined. Chart reviewed and case discussed with RN. The patient is back from surgery and tolerated the procedure well. She is somnolent due to anesthesia. Unable to completely cooperate with history taking and physical exam. Review of Systems: Unable to be obtained due to the patient's medical condition, however, she does deny being in pain. Medications: Reviewed. Physical Examination: Vital Signs: Temperature 97.6, heart rate 81, blood pressure 154/76, respirations 16, O2 100% on 2 L via nasal cannula. General: Sleep, arousable, appears older than stated age, cachectic, ill- appearing female. BMI 17. CV: S1, S2. Palpable pulses present. No murmurs. Respiratory: Clear to auscultation bilaterally. No wheezing. Gastrointestinal: Abdomen is soft, nontender, and nondistended. Positive bowel sounds. Extremities: No clubbing, cyanosis. Trace pitting edema. Neuro: Unable to be assessed. Musculoskeletal: Left hip incision site clean, dry, and intact. The patient is in immobilizer. Laboratory Data: Sodium 136, potassium 4.3, chloride 105, CO2 21, BUN 44, creatinine 2.43, glucose 58, uric acid 10.4, calcium 8.2, magnesium 1.8. WBC 6.7, H and H 12.2 and 26.3, platelets 119, neutrophils 76.6%. Assessment And Plan: A 62-year-old female with: 1. Status post fall with multiple fractures of the lower extremity. The patient having knee immobilizers, status post surgery today. We will obtain PT evaluation. 2. Anemia. The patient is transfused 2 units of PRBCs. We will continue to monitor H and H. 3. Closed fracture of both condyles of tibial plateau. The patient had surgery on the left knee today, postoperative day #0. Orthopedics on board. The patient in knee immobilizer. 4. Fibula fracture, initial encounter on the right, comminuted as above. 5. Gastroesophageal reflux disease without esophagitis. We will continue PPI. 6. Neuropathy. Continue home medications. 7. Chronic kidney disease. We will continue with IV fluids. Nephrology on board. Stage 3. Creatinine is slightly worsened. 8. Essential hypertension, stable. 9. Chronic obstructive pulmonary disease. Continue nebulizer treatments. Chronic bronchitis. 10. Diarrhea. Continue to monitor. Continue supportive care with IV fluids. 11. Failure to thrive. BMI 17.5. 12. Gastrointestinal and deep venous thrombosis prophylaxis with PPI. No chemical anticoagulation as the patient is just recovering from surgery. We will start Lovenox 24 hours post. /AZALEA Voice ID: [id number] Report ID: [id number] MTDD
--- NOTE | 2017-10-19 21:25 | OP ---
Date of Procedure: 10/19/2017 Surgeon: John Tillman MD Preoperative Diagnosis: Bilateral tibial plateau fractures with fractures of bilateral tibial tuberc les, left having also a proximal fibular fracture. Postoperative Diagnosis: Bilateral tibial plateau fractures with fractures of bilateral tibial tuber cles, left having also a proximal fibular fracture. Procedure: Left tibial plateau open reduction and internal fixation with fixation of the extensor me chanism using a Biomet, DePuy proximal tibial locking plate. Estimated Blood Loss: 20 cc. Complications: There were no complications. Specimen: No pathology specimen sent. Indications For Operation: Ms. Asher is a 62-year-old female, who is currently on oxygen, has mul tiple medical problems, and walks with a walker. She unfortunately fell from standing and she descri bes this as coming down on both her knees with her feet spread. [facility] she was ruled out for other injuries; however, x-rays and CT scans demonstrat ed bilateral tibial plateau fractures of the left, obviously much worse than the right. These are pr imarily dominated by shaft fractures; however, unfortunately on both the left and the right, she does have a fracture of the tibial tubercle. The right side does not appear to be significantly displace d and in fact, other than the tibial tubercle, it is even difficult to visualize the fracture. The t ibial tubercle itself is only slightly displaced. On the left, however, this is an intra-articular f racture of the tibia with extension into the shaft. The tibial tubercle fragment appears to be compl etely avulsed. There is also a fracture of the fibula. All risks, benefits, and alternatives to ope rative and nonoperative management were discussed with the patient as well as the family. She has be en cleared for operative intervention by Cardiology and Internal Medicine. The patient was told that we will assess her right side; however, we may treat this nonoperatively. The left side, however, t he procedures expressed in detail as well as risks, benefits, and alternatives associated with the pl an. She states she understands as things presented and wished to proceed. Procedure In Detail: The patient was taken to OR and placed in supine position. General anesthesia was obtained by the Anesthesia staff. Following this, well-padded tourniquets were placed on both le gs; however, right-sided tourniquet was not used throughout the case. Following this, bilateral lowe r extremity are prepped and draped in the usual sterile fashion. C-arm was brought in. The right si de was examined and appeared to be stable to gentle manipulation. Flexion of the knee did not cause any displacement of the tibial tubercle and extensor mechanism was felt to be attached. In regard th e left side, the left lower extremity was then elevated. The patella was brought down and it was not exsanguinated, but the tourniquet was raised. Decision was made to move forward with a standard ant erior midline incision, which was from the midshaft of the tibia to near the mid aspect of the patell a. This is a long relaxing incision as the patient does have poor blood flow. The decision for ariana ng anterior incision is dominated by the need to really address the tibial tubercle. Following this, incision with meticulous hemostasis being maintained using Bovie electrocautery. The tibialis anter ior was then gently removed from the tibia along its lateral aspect. It should be noted that there w as some injury to the tibialis anterior muscle prior to incision with some disruption; however, this was then removed to allow for good visualization. Standard reduction techniques for the tibia are th en performed and the periarticular locking plate was then applied using 1 screw to hold the plate to the shaft. Both C-arm and lateral radiography were used for proper positioning of the plate. It was placed in the best position as possible, does not completely match her plateau; however, definitely has good contact both distally and proximally. Biplanar C-arm and radiography were used to place the proximal 4 locking screws at this point, which appeared to have good purchase. After this, it was a gain checked by biplanar C-arm and radiography to ensure that it is not in too much flexion or extens ion. This still could be changed by loosening the distal screw. It appeared to be good. The remain farheen of the distal screws were then placed. Attention was then turned to the tibial tubercle. The tu bercle was then addressed by cleaning the fracture site. Also, a transverse drill hole was made thro ugh the first oblique locking hole of the plate. This goes through the plate and through a bicortica l purchase. A #5 FiberWire was then weaved into the patellar tendon and after this was laid over the tibial tubercle in figure-eight fashion as the FiberWire was placed through the bone tunnel and plat e. It was then tied onto the strand, we tied to the plate. This appears to hold the tibial tubercle in a very good position. The knee was brought through full range of motion and was found not to dis place. The wound was gently irrigated and skin was closed using interrupted Vicryl sutures. The fas jon was loosely tacked with a median Hemovac drain being placed in the wound bed. The skin was close d using myriam. The patient was then placed in a well-padded sterile dressing, Aquacel and a knee i mmobilizer, awakened, and taken to recovery room in good condition. There were no complications. /AZALEA Voice ID: [id number] Report ID: [id number]
[2017-10-20] MEDS: CEFAZOLIN/SWI 1gm 1 GM/10 ML SYR IVP SCH ×3 (00:16→16:30)
[2017-10-20] MEDS: HYDROCODONE/APAP 7.5/325 MG TAB PO PRN ×4 (03:01→23:26)
[2017-10-20] MEDS: NA CHLORIDE 0.9% 1,000 ML IV SCH ×2 (03:12→10:40)
[2017-10-20 04:59] LABS: Absolute Lymphocytes (CBC) 0.3 K/uL (0.7-4.9); Absolute Monocytes 0.7 K/uL (0.1-1.3); Absolute Neutrophil 4.8 K/uL (1.8-8.0); Basophils % 0.4 % (0-1.3); Lymphocytes % 5.8 % (15.3-44.8); MCH 30.9 pg (27.0-35.0); MCV 88.8 fL (80-100); Monocytes % 11.6 % (3.3-12.3); RBC Red Blood Cell Count 2.36 M/uL (3.86-4.86)
[2017-10-20 05:10] LABS: Hematocrit 20.9 % (36.0-45.0)
[2017-10-20 05:28] LABS: Magnesium 1.5 mg/dL (1.8-2.5); Potassium 4.2 mEq/L (3.6-5.0); Uric Acid 9.9 mg/dL (2.6-8.0)
[2017-10-20] MEDS ORDERED: FUROSEMIDE 20 MG/ 2ML VIAL IV PRN (05:28)
[2017-10-20] MEDS: FENTANYL CITR 100 MCG/2 ML IV PRN (05:35)
[2017-10-20] MEDS ORDERED: Magnesium Sulfate 2gm IVPB 2 G/50 ML BAG IV ONE (07:36)
[2017-10-20] MEDS: ARFORMOTEROL TARTRATE 15 MCG/2 ML VIAL.NEB NEB SCH ×2 (07:38→19:35)
[2017-10-20] MEDS: [UNRECOGNIZED DRUG - OTHER] IH SCH (09:00)
[2017-10-20] MEDS: IRON 18 MG PO SCH (09:00)
[2017-10-20] MEDS: ENSURE ENLIVE 237 ML CAN PO SCH ×2 (09:00→21:00)
[2017-10-20] MEDS ORDERED: CETIRIZINE HCL 1 MG PO SCH (09:00)
[2017-10-20] MEDS: LACTOBACILLUS/ACIDOPHILUS TAB PO SCH ×2 (09:17→21:05)
[2017-10-20] MEDS: CALCITROL 0.25 MCG CAP PO SCH (09:17)
[2017-10-20] MEDS: VITAMIN D 5,000 UNIT CAP PO SCH (09:17)
[2017-10-20] MEDS: ISOSORBIDE MONO SR 30 MG TAB PO SCH ×2 (09:17→21:03)
[2017-10-20] MEDS: ASPIRIN EC 81 MG TAB PO SCH (09:18)
[2017-10-20] MEDS: HYDRALAZINE HCL 25 MG TABLET PO SCH ×3 (09:18→21:04)
[2017-10-20] MEDS: PANTOPRAZOLE 40MG TABLET PO SCH (09:18)
[2017-10-20] MEDS: CARVEDILOL 25 MG TAB PO SCH ×2 (09:18→21:05)
[2017-10-20] MEDS: ONDANSETRON 4 MG/2 ML VIAL IV PRN ×3 (10:34→23:28)
[2017-10-20] MEDS ORDERED: NA CHLORIDE 0.9% 100 ML ONE (10:52)
--- NOTE | 2017-10-20 13:37 | PN ---
Date of Progress Note: 10/20/2017 Subjective: The patient is seen and examined. Chart reviewed and case discussed with RN. The patie nt doing well postoperatively. Her pain is under better control. The patient states she is hungry. Review of Systems: Negative except as above. Medications: Reviewed. Physical Examination: Vital Signs: Temperature 97.8, heart rate 81, blood pressure 142/66, respirations 16, O2 98% on 2 L via nasal cannula. General: Awake, alert, oriented x3, in some mild distress, appears older than stated age, ill-appear ing female. CV: S1, S2. No murmurs. Peripheral pulses present. Respiratory: Clear to auscultation bilaterally. No wheezing. No stridor. No use of accessory musc les. Gastrointestinal: Abdomen is soft, nontender, and nondistended. Positive bowel sounds. Extremities: No clubbing, cyanosis. Left lower extremity edema, greater than right. Neurologic: Nonfocal. Musculoskeletal: Knee immobilizers in place both lower extremities. Laboratory Data: Sodium 136, potassium 4.2, chloride 105, CO2 21, BUN 38, creatinine 2.04, glucose 7 1, uric acid is 9.9, calcium 8, magnesium 1.5. WBC 5.9, H and H 7.3 and 20.9, platelets 111, neutrop hils 81%. Assessment And Plan: A 62-year-old female with: 1.Status post fall, multiple fractures, lower extremity, initially on knee immobilizers, status post surgery on the left. We will obtain PT evaluation, rehab consultation. 2.Acute blood loss anemia, likely secondary to fracture. The patient will be transfused an addition al unit of PRBCs, received 2 units previously. We will monitor H and H. 3.Close fracture both condyles of the tibial plateau, surgery on the left side, postoperative day #1 . Appreciate Orthopedic's input. Currently in a knee immobilizer. 4.Fibular fracture, initial encounter on the right, comminuted. 5.Gastroesophageal reflux disease without esophagitis. Continue PPI. 6.Neuropathy. We will continue home medications. 7.Essential hypertension, uncontrolled, improved with blood pressure medications. 8.Chronic kidney disease. Nephrology on board. Stage 3. Creatinine is slightly improved. We will continue to monitor. 9.Hypomagnesemia. We will replace and monitor. 10.Chronic obstructive pulmonary disease. Continue nebulizer treatments. The patient has chronic b ronchitis. 11.Diarrhea, resolved. 12.Failure to thrive. BMI 17.5. 13.Gastrointestinal and deep venous thrombosis prophylaxis. We will add Lovenox after transfusion a nd PPI. DEVON Voice ID: [id number] Report ID: [id number]
[2017-10-20] MEDS: CETIRIZINE HCL 5 MG TABLET PO SCH (14:15)
[2017-10-20 17:12] LABS: Hematocrit 25.9 % (36.0-45.0)
--- NOTE | 2017-10-20 18:26 | RAD REPORT ---
EXAM DESCRIPTION: [facility] Ltd10/20/2017 6:18 pm CLINICAL HISTORY: left leg pain and swelling. COMPARISON: None. FINDINGS: Left common femoral, superficial femoral, popliteal and posterior tibial veins are compre ssible and demonstrate augmentation. Doppler demonstrates good flow. IMPRESSION: No evidence of deep venous thrombosis involving the left lower extremity.
[2017-10-20] MEDS: ENOXAPARIN 30 MG/0.3 ML SQ SCH (21:03)
--- NOTE | 2017-10-20 21:03 | P.PN ---
Date of Service: 10/20/17 Vital Signs Temp Pulse Resp BP Pulse Ox 97.6 F 70 16 151/68 H 98 10/20/17 16:00 10/20/17 16:00 10/20/17 16:00 10/20/17 16:00 10/20/17 16:00 Medications Acetaminophen (Tylenol -Extra Strength) 500 mg PO Q4HP PRN PRN Reason: [id number]-ei-[id number] Stop: 11/16/17 15:32 Hydrocodone Bitart/Acetaminophen (Plessis 7.5/325 Mg) 1 tab PO Q6H PRN PRN Reason: PAIN MODERATE TO SEVERE Stop: 11/16/17 15:32 Last Admin: 10/20/17 17:22 Dose: 1 tab Albuterol Sulfate (Proventil 0.083% Neb Soln) 2.5 mg NEB [id number] PRN PRN Reason: SHORTNESS OF BREATH Stop: 11/16/17 20:01 Last Admin: 10/17/17 20:32 Dose: 2.5 mg Arformoterol Tartrate (Brovana) 15 mcg NEB BIDRESP SUSAN Stop: 11/16/17 20:01 Last Admin: 10/20/17 19:35 Dose: 15 mcg Aspirin (Aspirin Ec) 81 mg PO DAILY SUSAN Stop: 11/16/17 16:01 Last Admin: 10/20/17 09:18 Dose: 81 mg Calcitriol (Rocaltrol) 0.5 mcg PO DAILY SUSAN Stop: 11/17/17 09:01 Last Admin: 10/20/17 09:17 Dose: 0.5 mcg Carvedilol (Coreg) 25 mg PO BID SUSAN Stop: 11/18/17 21:01 Last Admin: 10/20/17 09:18 Dose: 25 mg Cetirizine HCl (Zyrtec) 10 mg PO DAILY SUSAN Stop: 11/19/17 14:16 Last Admin: 10/20/17 14:15 Dose: Not Given Cholecalciferol (Vitamin D 5,000 Iu Cap) 5,000 unit PO DAILY SUSAN Stop: 11/17/17 09:01 Last Admin: 10/20/17 09:17 Dose: 5,000 unit Enoxaparin Sodium (Lovenox 30 Mg Inj) 30 mg SQ DAILY [facility] Stop: 11/19/17 20:01 Fentanyl Citrate (Sublimaze) 25 mcg IV Q4H PRN PRN Reason: PAIN SEVERE Stop: 11/16/17 15:32 Last Admin: 10/20/17 05:35 Dose: 25 mcg Furosemide (Lasix) 20 mg IV PRBCS PRN PRN Reason: blood transfusion Stop: 11/19/17 06:01 Last Admin: 10/20/17 14:41 Dose: 20 mg Gabapentin (Neurontin) 100 mg PO BIDP PRN PRN Reason: MUSCLE SPASMS Stop: 11/18/17 11:02 Home Med (Iron [Iron]) 18 mg PO DAILY [facility] Stop: 11/19/17 09:01 Last Admin: 10/20/17 09:00 Dose: Not Given Home Med (Umeclidinium Brm/Vilanterol Tr [Anoro Ellipta 62.5-25 Mcg Inh]) 1 inh IH DAILY [facility] Stop: 11/19/17 09:01 Last Admin: 10/20/17 09:00 Dose: Not Given Hydralazine HCl (Apresoline) 100 mg PO TID [facility] Stop: 11/18/17 17:01 Last Admin: 10/20/17 14:00 Dose: Not Given Ipratropium Somers (Atrovent Neb) 0.5 mg NEB [id number] PRN PRN Reason: SHORTNESS OF BREATH Stop: 11/16/17 20:01 Last Admin: 10/17/17 20:32 Dose: 0.5 mg Isosorbide Mononitrate (Imdur) 30 mg PO BID [facility] Stop: 11/18/17 21:01 Last Admin: 10/20/17 09:17 Dose: 30 mg Labetalol HCl (Trandate) 20 mg IV Q4H PRN PRN Reason: HIGH BP Stop: 11/18/17 17:20 Lactobacillus Acidoph/Bulgaricus (Lactinex) 1 tab PO BID [facility] Stop: 11/16/17 21:01 Last Admin: 10/20/17 09:17 Dose: 1 tab Nutritional Formula (Ensure Enlive) 237 ml PO BID [facility] Stop: 11/17/17 21:01 Last Admin: 10/20/17 09:00 Dose: Not Given Ondansetron HCl (Zofran) 4 mg IV Q6HP PRN PRN Reason: NAUSEA / VOMITING Stop: 11/16/17 15:32 Last Admin: 10/20/17 17:24 Dose: 4 mg Pantoprazole Sodium (Protonix Tab) 40 mg PO ACB SUSAN Stop: 11/16/17 16:01 Last Admin: 10/20/17 09:18 Dose: 40 mg Sodium Chloride (Normal Saline Flush) 10 ml IV BID SUSAN Stop: 11/16/17 21:01 Last Admin: 10/20/17 09:00 Dose: Not Given Tramadol HCl (Ultram) 50 mg PO TID PRN PRN Reason: PAIN MILD Stop: 11/16/17 15:32 Assessment/ Plan: Nephrology CPS stable without CP or SOB. No acute events overnight. Surgery yesterday. Vitals, medications, blood work and imaging reviewed in the chart. General: Alert, Oriented x3, Cooperative HEENT: Atraumatic, Mucous membr. moist/pink Neck: Supple Respiratory: Clear to auscultation bilaterally Cardiovascular: LE edema 1+ L>R, Regular rate/rhythm, No rubs Gastrointestinal: Soft and benign, Non-distended, No guarding Musculoskeletal: No clubbing, No contractures Integumentary: No rashes, No cyanosis Neurological: Normal speech Laboratory Data (last 24 hrs) 10/17/17 13:05: PT 11.2, INR 0.95, APTT 27.2 10/17/17 13:05: WBC 9.1 D, Hgb 9.5 L, Hct 29.8 L, Plt Count 217 D 10/17/17 13:05: B-Natriuretic Peptide 449 H 10/17/17 13:05: Sodium 135, Potassium 4.0, BUN 33 H, Creatinine 2.09 H, Glucose 89, Magnesium 2.3 D, Total Bilirubin < 0.1 L, AST 13, ALT 7 L, Alkaline Phosphatase 51, Lipase 18 L Imagings Data: EXAM DESCRIPTION: RAD - Chest Single View - 10/17/2017 12:50 pm CLINICAL HISTORY: Cough COMPARISON: 02/05/2016 FINDINGS: Portable technique limits examination quality. The lungs are emphysematous but grossly clear. The heart is normal in size. No displaced fractures. IMPRESSION: No acute intrathoracic process suspected. Conclusions/Impression: A/ MINDI/ CKD IV. Acidosis. Hyponatremia. HTN with CKD. Diastolic CHF, chronic. Anemia in chronic illness. Iron deficiency. Multiple LE traumatic fractures sp fall. Chronic pain syndrome. P/ Continue current POC and Medications. Discontinue IVF and monitor renal fx. Advance diet as tolerated. Pain control as needed. AM labs. Daily weight. No NSAIDs. Case discussed with Dr. French.
[2017-10-21 04:54] LABS: Absolute Lymphocytes (CBC) 0.6 K/uL (0.7-4.9); Absolute Monocytes 0.6 K/uL (0.1-1.3); Absolute Neutrophil 3.5 K/uL (1.8-8.0); Basophils % 1.2 % (0-1.3); Eosinophils % 6.4 % (0-4.4); Hematocrit 22.8 % (36.0-45.0); Lymphocytes % 11.4 % (15.3-44.8); MPV 8.3 fL (7.6-11.3); Monocytes % 11.8 % (3.3-12.3); RBC Red Blood Cell Count 2.69 M/uL (3.86-4.86)
[2017-10-21 05:52] LABS: Potassium 3.7 mEq/L (3.6-5.0)
[2017-10-21] MEDS ORDERED: NA CHLORIDE 0.9% 250 ML IV SCH (06:00)
[2017-10-21 06:02] LABS: UR CREAT 34.7 mg/dL (20-320)
[2017-10-21 06:08] LABS: UR CREAT 33.9 mg/dL (20-320); UR MICROALBUMIN 1.5 mg/dL (< 1.9)
[2017-10-21] MEDS ORDERED: NA CHLORIDE 0.9% 250 ML ONE (06:32)
[2017-10-21] MEDS: HYDROCODONE/APAP 7.5/325 MG TAB PO PRN ×3 (07:11→21:15)
[2017-10-21] MEDS: ONDANSETRON 4 MG/2 ML VIAL IV PRN ×3 (07:12→21:15)
[2017-10-21] MEDS ORDERED: DIPHENHYDRAMINE 25 MG TAB/CAP PO ONE (07:45)
[2017-10-21] MEDS: ARFORMOTEROL TARTRATE 15 MCG/2 ML VIAL.NEB NEB SCH ×2 (08:38→19:41)
[2017-10-21] MEDS: ENSURE ENLIVE 237 ML CAN PO SCH ×2 (08:40→21:00)
[2017-10-21] MEDS: IRON 18 MG PO SCH (08:41)
[2017-10-21] MEDS: [UNRECOGNIZED DRUG - OTHER] IH SCH (08:41)
[2017-10-21] MEDS: PANTOPRAZOLE 40MG TABLET PO SCH (08:52)
[2017-10-21] MEDS: ASPIRIN EC 81 MG TAB PO SCH (08:54)
[2017-10-21] MEDS: HYDRALAZINE HCL 25 MG TABLET PO SCH ×3 (08:54→21:01)
[2017-10-21] MEDS: ISOSORBIDE MONO SR 30 MG TAB PO SCH ×2 (08:55→21:02)
[2017-10-21] MEDS: CARVEDILOL 25 MG TAB PO SCH ×2 (08:55→21:02)
[2017-10-21] MEDS: CETIRIZINE HCL 5 MG TABLET PO SCH (08:55)
[2017-10-21] MEDS: CALCITROL 0.25 MCG CAP PO SCH (08:55)
[2017-10-21] MEDS: VITAMIN D 5,000 UNIT CAP PO SCH (08:55)
[2017-10-21] MEDS: LACTOBACILLUS/ACIDOPHILUS TAB PO SCH ×2 (08:55→21:02)
[2017-10-21] MEDS: ENOXAPARIN 30 MG/0.3 ML SQ SCH (08:55)
--- NOTE | 2017-10-21 10:43 | P.PN ---
Subjective Date of Service: 10/21/17 Primary Care Provider: Dr. Dallas; Nephro-Dr. Howell; Card-Dr. Durham; Neuro- Dr. Villar Chief Complaint: Fall Subjective: Improving (Patient receiving blood transfusion.) Physical Examination - Vital Signs Temperature: 97.9 F Blood Pressure: 168/72 Pulse: 65 Respirations: 12 Pulse Ox (%): 99 - Physical Exam General: Alert, In no apparent distress, Oriented x3, Cooperative HEENT: Atraumatic Neck: Supple Respiratory: Clear to auscultation bilaterally, Normal air movement Cardiovascular: Normal pulses, Regular rate/rhythm Gastrointestinal: Normal bowel sounds, Soft and benign, Non-distended, No tenderness, No masses, No rebound, No guarding Musculoskeletal: No tenderness, No warmth Integumentary: No erythema, No warmth, No cyanosis, Other (Knee immobilizer in place) Neurological: Normal speech, Normal tone, Normal affect - Studies Medications List Reviewed: Yes Assessment & Plan - Problems (Diagnosis) (1) Fall Onset Date: 10/18/17 Current Visit: Yes Status: Acute Plan: Patient with multiple fractures to the lower extremity. Patient is status post surgery to the left lower extremity. Will continue with physical therapy to evaluate for possible inpatient rehab transfer. Will discuss case further with orthopedics. Orthopedics did mention that the patient will need to be off her feet for 10-12 weeks. Patient anemic. Patient to get another unit of blood today. Will monitor hemoglobin. Renal function improved. Will encourage incentive spirometer. Will monitor closely. Qualifiers: Encounter type: initial encounter Qualified Code(s): W19.XXXA - Unspecified fall, initial encounter (2) Closed fracture of both condyles of tibial plateau Onset Date: 10/18/17 Current Visit: Yes Status: Acute Plan: Case discussed with orthopedics. Patient is status post surgery of the left tibial plateau. (3) Fibula fracture Onset Date: 10/18/17 Current Visit: Yes Status: Acute Plan: Continue as above. Qualifiers: Encounter type: initial encounter Fracture type: closed Fracture morphology: comminuted Laterality: right (4) GERD (gastroesophageal reflux disease) Onset Date: 10/18/17 Current Visit: Yes Status: Chronic Plan: Will continue with medication Qualifiers: Esophagitis presence: esophagitis presence not specified Qualified Code(s) : K21.9 - Gastro-esophageal reflux disease without esophagitis (5) Neuropathy Onset Date: 10/18/17 Current Visit: Yes Status: Chronic Plan: Will obtain and verify home medication. Will provide medication for pain. (6) Anemia Onset Date: 02/02/16 Current Visit: No Status: Acute Plan: Patient with anemia of chronic disease. Patient has been given 2 units of blood. 1 unit of blood to be given today. Will monitor hemoglobin closely. Qualifiers: Anemia type: other cause Other causes of anemia: chronic disease, other Qualified Code(s): D63.8 - Anemia in other chronic diseases classified elsewhere (7) CRF (chronic renal failure) Onset Date: 06/30/15 Current Visit: No Status: Acute Plan: Acute on chronic renal disease noted. Renal function improved. Will continue monitor closely. Nephrology consulted. Qualifiers: Chronic kidney disease stage: stage 3 (moderate) Qualified Code(s): N18.3 - Chronic kidney disease, stage 3 (moderate) (8) Hypertension Onset Date: 06/30/15 Current Visit: No Status: Chronic Plan: Will review and adjust medication Qualifiers: Hypertension type: essential hypertension Qualified Code(s): I10 - Essential (primary) hypertension (9) COPD (chronic obstructive pulmonary disease) Onset Date: 10/09/15 Current Visit: No Status: Chronic Plan: Will continue the medication. encourage incentive spirometer Qualifiers: Emphysema type: unspecified (10) Diarrhea Onset Date: 10/18/17 Current Visit: Yes Status: Acute Plan: Will monitor stool. Will provide medication. C diff culture, rotavirus and stained done prior to admission was negative. This appears resolved. Qualifiers: Diarrhea type: unspecified type Qualified Code(s): R19.7 - Diarrhea, unspecified Discharge Plan: Other (Inpatient rehab verses skilled placement) Plan to discharge in: Greater than 2 days Time Spent Managing Pts Care (In Minutes): 55
[2017-10-21 12:16] LABS: Hematocrit 28.5 % (36.0-45.0)
[2017-10-21] MEDS ORDERED: MAGNESIUM HYDROXIDE 8% 30 ML PO ONE (12:33)
[2017-10-21] MEDS ORDERED: FUROSEMIDE 20 MG/ 2ML VIAL IV ONE (12:36)
[2017-10-21] MEDS ORDERED: POTASSIUM CL SA 10 MEQ TAB PO ONE (12:36)
[2017-10-21] MEDS: DIPHENHYDRAMINE 25 MG TAB/CAP PO PRN ×2 (15:34→21:16)
--- NOTE | 2017-10-21 17:05 | PN ---
Date of Progress Note: 10/20/2017 The patient is seen today. Her immobilizer was taken off. Her dressing does have some blood. The drain is intact. We will have her change the dressing and remove the drain. Otherwise, her pain appears to be controlled. She did have another drop in her hemoglobin and she has been given a unit of blood. With regard to her right side, she has immobilizer without any apparent sign of problems. There is no heel soreness. Assessment: Patient now postop day 1 from a complex open reduction, internal fixation of tibial plateau fracture with fixation of the extensor mechanism. Also with a right-sided nondisplaced tibial plateau fracture, although there is a small fracture of the tibial tubercle, which appears to be stable. We treating both at this time in knee immobilizers primarily because of the concern of the extensor mechanism. She is non-weight bearing, and apparently, she is doing well, hospitalist to begin anticoagulation if demed indicated. All of her questions have been answered today. /AZALEA Voice ID: [id number] Report ID: [id number] SHAYLA
--- NOTE | 2017-10-21 20:07 | P.PN ---
Date of Service: 10/21/17 Vital Signs Temp Pulse Resp BP Pulse Ox 98.6 F 67 12 142/67 H 98 10/21/17 16:00 10/21/17 16:00 10/21/17 16:00 10/21/17 16:00 10/21/17 16:00 Medications Acetaminophen (Tylenol -Extra Strength) 500 mg PO Q4HP PRN PRN Reason: [id number] Stop: 11/16/17 15:32 Hydrocodone Bitart/Acetaminophen ([place] 7.5/325 Mg) 1 tab PO Q6H PRN PRN Reason: PAIN MODERATE TO SEVERE Stop: 11/16/17 15:32 Last Admin: 10/21/17 13:10 Dose: 1 tab Albuterol Sulfate (Proventil 0.083% Neb Soln) 2.5 mg NEB [id number] PRN PRN Reason: SHORTNESS OF BREATH Stop: 11/16/17 20:01 Last Admin: 10/17/17 20:32 Dose: 2.5 mg Arformoterol Tartrate (Brovana) 15 mcg NEB BIDRESP SUSAN Stop: 11/16/17 20:01 Last Admin: 10/21/17 19:41 Dose: 15 mcg Aspirin (Aspirin Ec) 81 mg PO DAILY SUSAN Stop: 11/16/17 16:01 Last Admin: 10/21/17 08:54 Dose: 81 mg Calcitriol (Rocaltrol) 0.5 mcg PO DAILY SUSAN Stop: 11/17/17 09:01 Last Admin: 10/21/17 08:55 Dose: 0.5 mcg Carvedilol (Coreg) 25 mg PO BID SUSAN Stop: 11/18/17 21:01 Last Admin: 10/21/17 08:55 Dose: 25 mg Cetirizine HCl (Zyrtec) 10 mg PO DAILY SUSAN Stop: 11/19/17 14:16 Last Admin: 10/21/17 08:55 Dose: 10 mg Cholecalciferol (Vitamin D 5,000 Iu Cap) 5,000 unit PO DAILY SUSAN Stop: 11/17/17 09:01 Last Admin: 10/21/17 08:55 Dose: 5,000 unit Diphenhydramine HCl (Benadryl Tab/Cap) 25 mg PO TIDP PRN PRN Reason: ITCHING Stop: 11/20/17 14:25 Last Admin: 10/21/17 15:34 Dose: 25 mg Docusate Sodium (Colace Cap) 100 mg PO BID [facility] Stop: 11/20/17 21:01 Enoxaparin Sodium (Lovenox 30 Mg Inj) 30 mg SQ DAILY [facility] Stop: 11/19/17 20:01 Last Admin: 10/21/17 08:55 Dose: 30 mg Fentanyl Citrate (Sublimaze) 25 mcg IV Q4H PRN PRN Reason: PAIN SEVERE Stop: 11/16/17 15:32 Last Admin: 10/20/17 05:35 Dose: 25 mcg Furosemide (Lasix) 20 mg IV PRBCS PRN PRN Reason: blood transfusion Stop: 11/19/17 06:01 Last Admin: 10/20/17 14:41 Dose: 20 mg Gabapentin (Neurontin) 100 mg PO BIDP PRN PRN Reason: MUSCLE SPASMS Stop: 11/18/17 11:02 Home Med (Iron [Iron]) 18 mg PO DAILY [facility] Stop: 11/19/17 09:01 Last Admin: 10/21/17 08:41 Dose: Not Given Home Med (Umeclidinium Brm/Vilanterol Tr [Anoro Ellipta 62.5-25 Mcg Inh]) 1 inh IH DAILY [facility] Stop: 11/19/17 09:01 Last Admin: 10/21/17 08:41 Dose: Not Given Hydralazine HCl (Apresoline) 100 mg PO TID [facility] Stop: 11/18/17 17:01 Last Admin: 10/21/17 13:48 Dose: 100 mg Sodium Chloride (Sodium Chloride) 250 mls @ 0 mls/hr IV .Q0M [facility] Stop: 11/20/17 06:01 Ipratropium Century (Atrovent Neb) 0.5 mg NEB [id number] PRN PRN Reason: SHORTNESS OF BREATH Stop: 11/16/17 20:01 Last Admin: 10/17/17 20:32 Dose: 0.5 mg Isosorbide Mononitrate (Imdur) 30 mg PO BID [facility] Stop: 11/18/17 21:01 Last Admin: 10/21/17 08:55 Dose: 30 mg Labetalol HCl (Trandate) 20 mg IV Q4H PRN PRN Reason: HIGH BP Stop: 11/18/17 17:20 Lactobacillus Acidoph/Bulgaricus (Lactinex) 1 tab PO BID SUSAN Stop: 11/16/17 21:01 Last Admin: 10/21/17 08:55 Dose: 1 tab Nutritional Formula (Ensure Enlive) 237 ml PO BID SUSAN Stop: 11/17/17 21:01 Last Admin: 10/21/17 08:40 Dose: Not Given Ondansetron HCl (Zofran) 4 mg IV Q6HP PRN PRN Reason: NAUSEA / VOMITING Stop: 11/16/17 15:32 Last Admin: 10/21/17 13:10 Dose: 4 mg Pantoprazole Sodium (Protonix Tab) 40 mg PO ACB SUSAN Stop: 11/16/17 16:01 Last Admin: 10/21/17 08:52 Dose: 40 mg Sodium Chloride (Normal Saline Flush) 10 ml IV BID [facility]USAN Stop: 11/16/17 21:01 Last Admin: 10/21/17 08:55 Dose: Not Given Tramadol HCl (Ultram) 50 mg PO TID PRN PRN Reason: PAIN MILD Stop: 11/16/17 15:32 Last Admin: 10/20/17 21:19 Dose: 50 mg Trazodone HCl (Desyrel) 150 mg PO BEDTIME SUSAN Stop: 11/20/17 21:01 Assessment/ Plan: Nephrology CPS stable without CP or SOB. No acute events overnight. Feeling better today but still with LE pain. Constipation. Vitals, medications, blood work and imaging reviewed in the chart. General: Alert, Oriented x3, Cooperative HEENT: Atraumatic, Mucous membr. moist/pink Neck: Supple Respiratory: Clear to auscultation bilaterally Cardiovascular: LE edema 1+ L>R, Regular rate/rhythm, No rubs Gastrointestinal: Soft and benign, Non-distended, No guarding Musculoskeletal: No clubbing, No contractures Integumentary: No rashes, No cyanosis Neurological: Normal speech Laboratory Data (last 24 hrs) 10/17/17 13:05: PT 11.2, INR 0.95, APTT 27.2 10/17/17 13:05: WBC 9.1 D, Hgb 9.5 L, Hct 29.8 L, Plt Count 217 D 10/17/17 13:05: B-Natriuretic Peptide 449 H 10/17/17 13:05: Sodium 135, Potassium 4.0, BUN 33 H, Creatinine 2.09 H, Glucose 89, Magnesium 2.3 D, Total Bilirubin < 0.1 L, AST 13, ALT 7 L, Alkaline Phosphatase 51, Lipase 18 L Imagings Data: EXAM DESCRIPTION: RAD - Chest Single View - 10/17/2017 12:50 pm CLINICAL HISTORY: Cough COMPARISON: 02/05/2016 FINDINGS: Portable technique limits examination quality. The lungs are emphysematous but grossly clear. The heart is normal in size. No displaced fractures. IMPRESSION: No acute intrathoracic process suspected. Conclusions/Impression: A/ MINDI/ CKD IV. Acidosis. Hyponatremia. HTN with CKD. Diastolic CHF, chronic. Anemia in chronic illness. Iron deficiency. Multiple LE traumatic fractures sp fall. Chronic pain syndrome. Slow transit constipation. P/ Continue current POC and Medications. Lasix 20mg IV X1. Give KCl 40meq X1. Start Colace. Give MoM X1. Advance diet as tolerated. Pain control as needed. AM labs. Daily weight. No NSAIDs. Case discussed with Dr. French.
[2017-10-21] MEDS: DOCUSATE NA 100 MG CAP PO SCH (21:02)
[2017-10-21] MEDS: TRAZODONE 150 MG TAB PO SCH (22:17)
--- NOTE | 2017-10-22 05:27 | PN ---
Date of Progress Note: 10/21/2017 Subjective: Ms. Asher is seen today. Her immobilizers are in place. She does not have any compl aints. Her dressing is clean, dry, and intact. Her drain has been removed. EHL, tibialis anterior, and plantar flexion are strong on both heels. Heels are nontender. Her hemoglobin is now up to 9.8 . She has been afebrile with a T-max of 99.3. They are currently working towards discharge planning . She will be nonweightbearing on both sides. We would remove the myriam on her left side postop d ay 14. Probably, can remain in both of her knee immobilizers until she sees me back in the clinic an d I think she should see me back in the clinic in approximately a week or so or sooner with problems; otherwise, anticoagulation as indicated. /AZALEA Voice ID: [id number] Report ID: [id number]
[2017-10-22 05:51] LABS: Magnesium 2.1 mg/dL (1.8-2.5); Potassium 4.2 mEq/L (3.6-5.0)
[2017-10-22 06:20] LABS: Absolute Lymphocytes (CBC) 0.6 K/uL (0.7-4.9); Absolute Monocytes 0.6 K/uL (0.1-1.3); Absolute Neutrophil 3.7 K/uL (1.8-8.0); Basophils % 0.5 % (0-1.3); Lymphocytes % 11.4 % (15.3-44.8); MCH 28.9 pg (27.0-35.0); MCV 83.3 fL (80-100); MPV 8.2 fL (7.6-11.3); Monocytes % 12.1 % (3.3-12.3); RBC Red Blood Cell Count 3.36 M/uL (3.86-4.86)
[2017-10-22] MEDS: ARFORMOTEROL TARTRATE 15 MCG/2 ML VIAL.NEB NEB SCH ×2 (08:00→20:34)
--- NOTE | 2017-10-22 08:19 | P.PN ---
Subjective Date of Service: 10/22/17 Primary Care Provider: Dr. Dallas; Nephro-Dr. Howell; Card-Dr. Durham; Neuro- Dr. Villar Chief Complaint: Fall Subjective: Doing well Physical Examination - Vital Signs Temperature: 97.4 F Blood Pressure: 165/84 Pulse: 67 Respirations: 16 Pulse Ox (%): 100 - Physical Exam General: Alert, In no apparent distress, Oriented x3, Cooperative HEENT: Atraumatic, Mucous membr. moist/pink Neck: Supple Respiratory: Clear to auscultation bilaterally, Normal air movement Cardiovascular: Normal pulses, Regular rate/rhythm Gastrointestinal: Normal bowel sounds, Soft and benign, Non-distended, No tenderness, No masses, No rebound, No guarding Musculoskeletal: No erythema, No tenderness, No warmth Integumentary: No tenderness/swelling, No erythema, No warmth, No cyanosis Neurological: Normal speech, Normal strength at 5/5 x4 extr, Normal tone, Normal affect - Studies Medications List Reviewed: Yes Assessment & Plan - Problems (Diagnosis) (1) Fall Onset Date: 10/18/17 Current Visit: Yes Status: Acute Plan: Patient with multiple fractures to the lower extremity. Patient doing well at this time. Pain well controlled. Patient is status post surgery to the left lower extremity. Will continue with physical therapy to evaluate for possible inpatient rehab transfer. Case discussed with orthopedics. Orthopedics did mention that the patient will need to be off her feet for 10-12 weeks. Patient anemic and has received 3 units of packed red blood cells. Will monitor hemoglobin. Renal function improved. Will encourage incentive spirometer. Will monitor closely. Qualifiers: Encounter type: initial encounter Qualified Code(s): W19.XXXA - Unspecified fall, initial encounter (2) Closed fracture of both condyles of tibial plateau Onset Date: 10/18/17 Current Visit: Yes Status: Acute Plan: Case discussed with orthopedics. Patient is status post surgery of the left tibial plateau. Continue with physical therapy. Patient to be evaluated for inpatient rehab verses skilled placement. (3) Fibula fracture Onset Date: 10/18/17 Current Visit: Yes Status: Acute Plan: Continue as above. Qualifiers: Encounter type: initial encounter Fracture type: closed Fracture morphology: comminuted Laterality: right (4) GERD (gastroesophageal reflux disease) Onset Date: 10/18/17 Current Visit: Yes Status: Chronic Plan: Will continue with medication Qualifiers: Esophagitis presence: esophagitis presence not specified Qualified Code(s) : K21.9 - Gastro-esophageal reflux disease without esophagitis (5) Neuropathy Onset Date: 10/18/17 Current Visit: Yes Status: Chronic Plan: Will continue with medication. Will provide medication for pain. (6) Anemia Onset Date: 02/02/16 Current Visit: No Status: Acute Plan: Patient with anemia of chronic disease. Patient has been given 3 units of blood. Hemoglobin now stable. Will monitor closely. Qualifiers: Anemia type: other cause Other causes of anemia: chronic disease, other Qualified Code(s): D63.8 - Anemia in other chronic diseases classified elsewhere (7) CRF (chronic renal failure) Onset Date: 06/30/15 Current Visit: No Status: Acute Plan: Acute on chronic renal disease noted. Renal function improved. Will continue monitor closely. Nephrology consulted. Qualifiers: Chronic kidney disease stage: stage 3 (moderate) Qualified Code(s): N18.3 - Chronic kidney disease, stage 3 (moderate) (8) Hypertension Onset Date: 06/30/15 Current Visit: No Status: Chronic Plan: Continue with medication. Will monitor and adjust appropriately. Qualifiers: Hypertension type: essential hypertension Qualified Code(s): I10 - Essential (primary) hypertension (9) COPD (chronic obstructive pulmonary disease) Onset Date: 10/09/15 Current Visit: No Status: Chronic Plan: Will continue the medication. Encourage incentive spirometer Qualifiers: Emphysema type: unspecified (10) Diarrhea Onset Date: 10/18/17 Current Visit: Yes Status: Acute Plan: Will monitor stool. This appears to have resolved. Will provide medication. C diff culture, rotavirus and stained done prior to admission was negative. Qualifiers: Diarrhea type: unspecified type Qualified Code(s): R19.7 - Diarrhea, unspecified Discharge Plan: Other (Inpatient rehab versus skilled placement) Plan to discharge in: Greater than 2 days Time Spent Managing Pts Care (In Minutes): 55
[2017-10-22] MEDS: [UNRECOGNIZED DRUG - OTHER] IH SCH (08:25)
[2017-10-22] MEDS: IRON 18 MG PO SCH (08:25)
[2017-10-22] MEDS: ENSURE ENLIVE 237 ML CAN PO SCH ×2 (08:26→21:00)
[2017-10-22] MEDS: HYDRALAZINE HCL 25 MG TABLET PO SCH ×3 (08:27→21:30)
[2017-10-22] MEDS: PANTOPRAZOLE 40MG TABLET PO SCH (08:27)
[2017-10-22] MEDS: ASPIRIN EC 81 MG TAB PO SCH (08:27)
[2017-10-22] MEDS: LACTOBACILLUS/ACIDOPHILUS TAB PO SCH ×2 (08:28→21:30)
[2017-10-22] MEDS: CALCITROL 0.25 MCG CAP PO SCH (08:28)
[2017-10-22] MEDS: CARVEDILOL 25 MG TAB PO SCH ×2 (08:28→21:30)
[2017-10-22] MEDS: ISOSORBIDE MONO SR 30 MG TAB PO SCH ×2 (08:28→21:29)
[2017-10-22] MEDS: DOCUSATE NA 100 MG CAP PO SCH ×2 (08:28→21:29)
[2017-10-22] MEDS: VITAMIN D 5,000 UNIT CAP PO SCH (08:29)
[2017-10-22] MEDS: CETIRIZINE HCL 5 MG TABLET PO SCH (08:29)
[2017-10-22] MEDS: ENOXAPARIN 30 MG/0.3 ML SQ SCH (08:33)
[2017-10-22] MEDS: HYDROCODONE/APAP 7.5/325 MG TAB PO PRN ×2 (09:44→15:54)
[2017-10-22] MEDS: ONDANSETRON 4 MG/2 ML VIAL IV PRN ×2 (09:45→15:54)
--- NOTE | 2017-10-22 20:38 | PN ---
Date of Progress Note: 10/22/2017 The patient is seen today. She is apparently comfortable in bilateral knee immobilizers. She has no significant new complaints. She has been working at physical therapy, and she is now becoming more mobile. She has been afebrile. Hemoglobin now is 9.7 with a platelet count of 140. It should be no yahaira that she did get another transfusion yesterday per her report. I am unsure why her hemoglobin ke eps dropping. I do not really think this has an orthopedic cause in particular and perhaps looking f or another source should be entertained if she continues to have the problem. I have discussed this with the family. They state they understand things as presented. At this point, I believe her disch arge plan has further moved to 5th floor on Tuesday. Family was told that the sutures will be removed postop 2 weeks, also we will have x-rays of both her knees postop 2 weeks. She will continue nonwei ghtbearing, continue with the immobilizers. Also told to check her skin periodically, as the immobil izers could cause some skin breakdown or sores. They said they understand things as presented. Othe rwise, I told them until the knee immobilizers are off, she should not allow either knee to bend. Th ani said they understand this and they understand the followup and they are able to voice it back. /AZALEA Voice ID: [id number] Report ID: [id number]
[2017-10-22] MEDS: TRAZODONE 150 MG TAB PO SCH (21:42)
[2017-10-23 04:27] LABS: Absolute Lymphocytes (CBC) 0.5 K/uL (0.7-4.9); Absolute Monocytes 0.5 K/uL (0.1-1.3); Absolute Neutrophil 3.2 K/uL (1.8-8.0); Basophils % 0.4 % (0-1.3); Eosinophils % 5.6 % (0-4.4); Hematocrit 25.2 % (36.0-45.0); Lymphocytes % 11.2 % (15.3-44.8); MCH 29.1 pg (27.0-35.0); MCV 84.4 fL (80-100); MPV 8.2 fL (7.6-11.3); Monocytes % 11.6 % (3.3-12.3); RBC Red Blood Cell Count 2.98 M/uL (3.86-4.86)
[2017-10-23] MEDS: PANTOPRAZOLE 40MG TABLET PO SCH (07:25)
[2017-10-23] MEDS: HYDROCODONE/APAP 7.5/325 MG TAB PO PRN ×2 (07:25→13:47)
[2017-10-23] MEDS: ONDANSETRON 4 MG/2 ML VIAL IV PRN ×2 (07:25→13:47)
--- NOTE | 2017-10-23 08:19 | P.PN ---
Subjective Date of Service: 10/23/17 Primary Care Provider: Dr. Dallas; Nephro-Dr. Howell; Card-Dr. Durham; Neuro- Dr. Villar Chief Complaint: Fall Subjective: Doing well Physical Examination - Vital Signs Temperature: 98.9 F Blood Pressure: 149/67 Pulse: 76 Respirations: 16 Pulse Ox (%): 98 - Physical Exam General: Alert, In no apparent distress, Oriented x3, Cooperative HEENT: Atraumatic Neck: Supple Respiratory: Clear to auscultation bilaterally, Normal air movement Cardiovascular: Normal pulses, Regular rate/rhythm Gastrointestinal: Normal bowel sounds, Soft and benign, Non-distended, No tenderness, No masses, No rebound, No guarding Musculoskeletal: No erythema, No tenderness, No warmth Integumentary: No tenderness/swelling, No erythema, No warmth, No cyanosis Neurological: Normal speech, Normal strength at 5/5 x4 extr, Normal tone, Normal affect - Studies Medications List Reviewed: Yes Assessment & Plan - Problems (Diagnosis) (1) Fall Onset Date: 10/18/17 Current Visit: Yes Status: Acute Plan: Patient with multiple fractures to the lower extremity. Patient doing well at this time. Pain well controlled. Patient is status post surgery to the left lower extremity. Patient will continue with physical therapy. Await to see if the patient can be approved for inpatient rehab. Orthopedics continues with nonweightbearing to the lower extremities. Patient to continue with knee immobilizers. Sutures can be removed in 2 weeks. Repeat x-rays to the knees will need to be done in 2 weeks to further evaluate. No bending of the knee is recommended at this time. Qualifiers: Encounter type: initial encounter Qualified Code(s): W19.XXXA - Unspecified fall, initial encounter (2) Closed fracture of both condyles of tibial plateau Onset Date: 10/18/17 Current Visit: Yes Status: Acute Plan: Case discussed with orthopedics. Continue as above. (3) Fibula fracture Onset Date: 10/18/17 Current Visit: Yes Status: Acute Plan: Continue as above. Qualifiers: Encounter type: initial encounter Fracture type: closed Fracture morphology: comminuted Laterality: right (4) GERD (gastroesophageal reflux disease) Onset Date: 10/18/17 Current Visit: Yes Status: Chronic Plan: Will continue with medication Qualifiers: Esophagitis presence: esophagitis presence not specified Qualified Code(s) : K21.9 - Gastro-esophageal reflux disease without esophagitis (5) Neuropathy Onset Date: 10/18/17 Current Visit: Yes Status: Chronic Plan: Will continue with medication. Will provide medication for pain. Pain stable this time. (6) Anemia Onset Date: 02/02/16 Current Visit: No Status: Acute Plan: Patient with anemia of chronic disease. Patient has been given 3 units of blood. Hemoglobin now stable. Will monitor closely. Will check iron and B12 studies. Qualifiers: Anemia type: other cause Other causes of anemia: chronic disease, other Qualified Code(s): D63.8 - Anemia in other chronic diseases classified elsewhere (7) CRF (chronic renal failure) Onset Date: 06/30/15 Current Visit: No Status: Acute Plan: Acute on chronic renal disease noted. Renal function improved. Will continue monitor closely. Nephrology consulted. Qualifiers: Chronic kidney disease stage: stage 3 (moderate) Qualified Code(s): N18.3 - Chronic kidney disease, stage 3 (moderate) (8) Hypertension Onset Date: 06/30/15 Current Visit: No Status: Chronic Plan: Continue with medication. Will monitor and adjust appropriately. Qualifiers: Hypertension type: essential hypertension Qualified Code(s): I10 - Essential (primary) hypertension (9) COPD (chronic obstructive pulmonary disease) Onset Date: 10/09/15 Current Visit: No Status: Chronic Plan: Will continue the medication. Encourage incentive spirometer. Patient is oxygen dependent. Qualifiers: Emphysema type: unspecified (10) Diarrhea Onset Date: 10/18/17 Current Visit: Yes Status: Acute Plan: Will monitor stool. This appears to have resolved. Will provide medication. C diff culture, rotavirus and stained done prior to admission was negative. Qualifiers: Diarrhea type: unspecified type Qualified Code(s): R19.7 - Diarrhea, unspecified Discharge Plan: Other (Inpatient rehab) Plan to discharge in: 24 Hours Time Spent Managing Pts Care (In Minutes): 55
[2017-10-23] MEDS: HYDRALAZINE HCL 25 MG TABLET PO SCH ×3 (08:53→22:00)
[2017-10-23] MEDS: ENSURE ENLIVE 237 ML CAN PO SCH ×2 (08:54→21:00)
[2017-10-23] MEDS: ISOSORBIDE MONO SR 30 MG TAB PO SCH ×2 (08:54→21:59)
[2017-10-23] MEDS: ASPIRIN EC 81 MG TAB PO SCH (08:54)
[2017-10-23] MEDS: CARVEDILOL 25 MG TAB PO SCH ×2 (08:54→21:59)
[2017-10-23] MEDS: DOCUSATE NA 100 MG CAP PO SCH ×2 (08:54→21:59)
[2017-10-23] MEDS: CALCITROL 0.25 MCG CAP PO SCH (08:55)
[2017-10-23] MEDS: [UNRECOGNIZED DRUG - OTHER] IH SCH (08:55)
[2017-10-23] MEDS: VITAMIN D 5,000 UNIT CAP PO SCH (08:55)
[2017-10-23] MEDS: IRON 18 MG PO SCH (08:55)
[2017-10-23] MEDS: LACTOBACILLUS/ACIDOPHILUS TAB PO SCH ×2 (08:55→21:59)
[2017-10-23] MEDS: ENOXAPARIN 30 MG/0.3 ML SQ SCH (08:56)
[2017-10-23] MEDS: CETIRIZINE HCL 5 MG TABLET PO SCH (08:56)
[2017-10-23] MEDS: ARFORMOTEROL TARTRATE 15 MCG/2 ML VIAL.NEB NEB SCH ×2 (13:44→19:58)
[2017-10-23 19:53] LABS: Hematocrit 25.2 % (36.0-45.0)
[2017-10-23] MEDS: TRAZODONE 150 MG TAB PO SCH (22:00)
[2017-10-24] MEDS: ACETAMINOPHEN 500 MG TAB PO PRN ×3 (01:00→16:37)
[2017-10-24 04:27] LABS: Ferritin 360.9 ng/ml (11.0-306.8)
[2017-10-24 06:24] LABS: Absolute Lymphocytes (CBC) 0.5 K/uL (0.7-4.9); Absolute Monocytes 0.6 K/uL (0.1-1.3); Basophils % 0.7 % (0-1.3); Eosinophils % 2.8 % (0-4.4); Hematocrit 24.1 % (36.0-45.0); Lymphocytes % 9.5 % (15.3-44.8); MCH 28.5 pg (27.0-35.0); MPV 8.2 fL (7.6-11.3); Monocytes % 11.9 % (3.3-12.3)
[2017-10-24 06:44] LABS: Magnesium 1.8 mg/dL (1.8-2.5); Potassium 4.5 mEq/L (3.6-5.0)
[2017-10-24] MEDS: ARFORMOTEROL TARTRATE 15 MCG/2 ML VIAL.NEB NEB SCH ×2 (07:33→19:30)
[2017-10-24] MEDS ORDERED: MAGNESIUM SULFATE 1 gm IVPB 1 GM/100 ML BAG IV ONE (08:00)
[2017-10-24] MEDS: IRON 18 MG PO SCH (09:00)
[2017-10-24] MEDS: ENSURE ENLIVE 237 ML CAN PO SCH ×2 (09:00→21:35)
[2017-10-24] MEDS: [UNRECOGNIZED DRUG - OTHER] IH SCH (09:00)
[2017-10-24] MEDS: ENOXAPARIN 30 MG/0.3 ML SQ SCH (09:24)
[2017-10-24] MEDS: PANTOPRAZOLE 40MG TABLET PO SCH (09:25)
[2017-10-24] MEDS: HYDRALAZINE HCL 25 MG TABLET PO SCH ×3 (09:25→21:33)
[2017-10-24] MEDS: VITAMIN D 5,000 UNIT CAP PO SCH (09:25)
[2017-10-24] MEDS: LACTOBACILLUS/ACIDOPHILUS TAB PO SCH ×2 (09:25→21:33)
[2017-10-24] MEDS: CETIRIZINE HCL 5 MG TABLET PO SCH (09:25)
[2017-10-24] MEDS: CALCITROL 0.25 MCG CAP PO SCH (09:25)
[2017-10-24] MEDS: ASPIRIN EC 81 MG TAB PO SCH (09:26)
[2017-10-24] MEDS: ISOSORBIDE MONO SR 30 MG TAB PO SCH ×2 (09:26→21:33)
[2017-10-24] MEDS: GABAPENTIN 100 MG CAP PO PRN (09:26)
[2017-10-24] MEDS: DOCUSATE NA 100 MG CAP PO SCH ×2 (09:26→21:33)
[2017-10-24] MEDS: CARVEDILOL 25 MG TAB PO SCH ×2 (09:26→21:33)
--- NOTE | 2017-10-24 09:53 | PN ---
Date of Progress Note: 10/22/2017 Subjective: The patient is seen and examined at bedside. She states that she is still in pain and r eceiving pain control with pain medication. Her pain seems to be well controlled. Physical Examination: Vital signs: Showing temperature of 98.6, pulse rate of 69, respiratory rate of 12, and blood pressu re of 138/63. General: She appears in no acute distress. Lungs: Clear to auscultation. HEART: Auscultation of heart revealed regular rate and rhythm. Abdomen: Soft and nontender. No rebound or guarding was noted. EXTREMITIES: Bilateral legs in braces were noted. Laboratory Data: Showing hemoglobin up to 9.7, hematocrit of 28, and platelet count of 140, which is improving. BMP results are showing sodium of 133, potassium of 4.2, chloride of 97, BUN of 40, and creatinine of 1.84, which is improving from previous. Current Medications: Include Tylenol p.r.n. for pain, Brovana, aspirin, calcitriol, carvedilol 25 mg b.i.d., vitamin D, Lovenox for deep vein thrombosis prophylaxis, Ensure, gabapentin 100 mg b.i.d., h ydralazine 100 mg t.i.d., hydrocodone for pain, iron tablets 18 mg p.o. daily, isosorbide, labetalol p.r.n. for blood pressure, tramadol, pantoprazole, and trazodone. Impression: 1.Acute on chronic renal insufficiency. The patient has stage 4 chronic kidney disease at baseline. She has had acute component, which is resolving and her renal function seems to be stable at this t maxx. 2.Hyponatremia. The patient has chronic history of hyponatremia, which is being managed by fluid re striction. She can be put on 1.5 L fluid restriction and can be monitored at this time. 3.Bilateral tibia and fibula fracture. The patient had open reduction and internal fixation of the left tibia with plans for conservative management of the right. The patient is being followed by Dr. Tillman. 4.Anemia secondary to blood loss and also from chronic illness. We will continue to monitor. Hemog lobin is improving. 5.Chronic pain syndrome. The patient is on [place]. Will need to be closely monitored as she can dev elop severe constipation with chronic opioid use. 6.Underlying chronic obstructive pulmonary disease. Continue oxygen therapy and home inhalers and m onitor. Plan: The patient is overall doing okay at this time. We will put her on 1.5 L fluid restriction. Continue to monitor hemoglobin. Continue p.o. iron. May give IV iron if need to, and follow up on h er constipation regimen and may need to get her started on stool softeners if continues to be constip ated, but for now her abdomen seems to be soft and we will monitor her for right now. [place]ON/AZALEA Voice ID: [id number] Report ID: [id number]
[2017-10-24] MEDS: NA CHLORIDE 0.9% 1,000 ML IV SCH ×2 (10:00→21:32)
--- NOTE | 2017-10-24 16:29 | PN ---
Date of Progress Note: 10/24/2017 Subjective: The patient seen and examined, chart reviewed, and case discussed with RN and Dr. Zo aldana. The patient states her pain is improved, awaiting to go to rehab. More mobile. Review of Systems: Negative except as above. Medications: Reviewed. Physical Examination: Vital Signs: Temperature 98.6, heart rate 78, blood pressure 115/56, respirations 18, and O2 96% on 2 L via nasal cannula. General: Awake, alert, oriented x3. Some mild distress due to pain. Appears older than stated age female. CV: S1, S2. No murmurs. Regular rate and rhythm. Peripheral pulses present. Respiratory: Moving air well bilaterally. No wheezing. Gastrointestinal: Abdomen is soft, nontender, nondistended. Positive bowel sounds. Extremities: No clubbing, cyanosis. Left extremity edema. Musculoskeletal: the patient has a knee immobilizer. Incision site on left lower extremity is clean , dry, and intact. Neurologic: Nonfocal. Laboratory Data: WBC 5.3, H and H 8 and 24.1, platelets 173, and neutrophils 75%. Sodium 136, potas sium 4.5, chloride 98, CO2 33, BUN 58, creatinine 3.04, glucose 108, calcium 8.4, and magnesium 1.9. Assessment: A 62-year-old female with; 1.Status post mechanical fall. Continue with PT. The patient is nonweightbearing on both lower ext remities. The patient will need inpatient rehab. 2.Closed fracture of both condyles and tibial plateau. Dr. Tillman on the case. Sutures to be re moved in 2 weeks. Repeat x-ray to the knees in 2 weeks for further evaluation. No bending of the kn ee recommended at this time. 3.Fibula fracture as above. comminuted, initial encounter, right. 4.Gastroesophageal reflux disease without esophagitis. Continue PPI. 5.Neuropathy, stable. 6.Anemia, likely anemia of chronic disease, status post 2 units of PRBCs. Follow up with iron naman zacarias. 7.Acute on chronic kidney disease. Kidney function has deteriorated again today. Creatinine bumpin g up to 3. Discussed with Dr. Holcomb. We will start on IV fluids. Monitor status closely. 8.Essential hypertension, stable. 9.Chronic obstructive pulmonary disease, chronic bronchitis. Continue oxygen supplementation. Nebu lizers as needed. The patient is oxygen dependent. 10.Diarrhea, resolved. Clostridium difficile, rotavirus cultures negative prior to admission. 11.Gastrointestinal and deep venous thrombosis prophylaxis with PPI and Lovenox. Plan: We will monitor kidney function prior to discharging to rehab. Follow up with Nephrology inpu t. /AZALEA Voice ID: [id number] Report ID: [id number]
[2017-10-24] MEDS ORDERED: SOD FERRIC GLUC COMPLX/SUCROSE 125 MG in NA CHLORIDE 0.9% 100 ML IV ONE (18:00)
[2017-10-24] MEDS: TRAZODONE 150 MG TAB PO SCH (21:33)
--- NOTE | 2017-10-24 21:44 | P.PN ---
Date of Service: 10/24/17 Vital Signs Temp Pulse Resp BP Pulse Ox 97.6 F 81 20 134/63 99 10/24/17 20:00 10/24/17 21:33 10/24/17 20:00 10/24/17 21:33 10/24/17 20:00 Medications Acetaminophen (Tylenol -Extra Strength) 500 mg PO Q4HP PRN PRN Reason: [id number] Stop: 11/16/17 15:32 Last Admin: 10/24/17 16:37 Dose: 500 mg Albuterol Sulfate (Proventil 0.083% Neb Soln) 2.5 mg NEB [id number] PRN PRN Reason: SHORTNESS OF BREATH Stop: 11/16/17 20:01 Last Admin: 10/17/17 20:32 Dose: 2.5 mg Arformoterol Tartrate (Brovana) 15 mcg NEB BIDRESP SUSAN Stop: 11/16/17 20:01 Last Admin: 10/24/17 19:30 Dose: 15 mcg Aspirin (Aspirin Ec) 81 mg PO DAILY SUSAN Stop: 11/16/17 16:01 Last Admin: 10/24/17 09:26 Dose: 81 mg Calcitriol (Rocaltrol) 0.5 mcg PO DAILY SUSAN Stop: 11/17/17 09:01 Last Admin: 10/24/17 09:25 Dose: 0.5 mcg Carvedilol (Coreg) 25 mg PO BID SUSAN Stop: 11/18/17 21:01 Last Admin: 10/24/17 21:33 Dose: 25 mg Cetirizine HCl (Zyrtec) 10 mg PO DAILY SUSAN Stop: 11/19/17 14:16 Last Admin: 10/24/17 09:25 Dose: 10 mg Cholecalciferol (Vitamin D 5,000 Iu Cap) 5,000 unit PO DAILY SUSAN Stop: 11/17/17 09:01 Last Admin: 10/24/17 09:25 Dose: 5,000 unit Diphenhydramine HCl (Benadryl Tab/Cap) 25 mg PO TIDP PRN PRN Reason: ITCHING Stop: 11/20/17 14:25 Last Admin: 10/21/17 21:16 Dose: 25 mg Docusate Sodium (Colace Cap) 100 mg PO BID SUSAN Stop: 11/20/17 21:01 Last Admin: 10/24/17 21:33 Dose: 100 mg Enoxaparin Sodium (Lovenox 30 Mg Inj) 30 mg SQ DAILY SUSAN Stop: 11/19/17 20:01 Last Admin: 10/24/17 09:24 Dose: 30 mg Furosemide (Lasix) 20 mg IV PRBCS PRN PRN Reason: blood transfusion Stop: 11/19/17 06:01 Last Admin: 10/20/17 14:41 Dose: 20 mg Gabapentin (Neurontin) 100 mg PO BIDP PRN PRN Reason: MUSCLE SPASMS Stop: 11/18/17 11:02 Last Admin: 10/24/17 09:26 Dose: 100 mg Home Med (Iron [Iron]) 18 mg PO DAILY [facility] Stop: 11/19/17 09:01 Last Admin: 10/24/17 09:00 Dose: Not Given Home Med (Umeclidinium Brm/Vilanterol Tr [Anoro Ellipta 62.5-25 Mcg Inh]) 1 inh IH DAILY [facility] Stop: 11/19/17 09:01 Last Admin: 10/24/17 09:00 Dose: Not Given Hydralazine HCl (Apresoline) 50 mg PO TID [facility] Stop: 11/23/17 21:01 Last Admin: 10/24/17 21:33 Dose: 50 mg Sodium Chloride (Sodium Chloride) 250 mls @ 0 mls/hr IV .Q0M SUSAN Stop: 11/20/17 06:01 Sodium Chloride (Ns 1000 Ml Ivbag) 1,000 mls @ 100 mls/hr IV .Q10H SUSAN Stop: 11/23/17 10:01 Last Admin: 10/24/17 21:32 Dose: 1,000 mls Ipratropium Inland (Atrovent Neb) 0.5 mg NEB [id number] PRN PRN Reason: SHORTNESS OF BREATH Stop: 11/16/17 20:01 Last Admin: 10/17/17 20:32 Dose: 0.5 mg Isosorbide Mononitrate (Imdur) 30 mg PO BID SUSAN Stop: 11/18/17 21:01 Last Admin: 10/24/17 21:33 Dose: 30 mg Labetalol HCl (Trandate) 20 mg IV Q4H PRN PRN Reason: HIGH BP Stop: 11/18/17 17:20 Last Admin: 10/21/17 22:25 Dose: 20 mg Lactobacillus Acidoph/Bulgaricus (Lactinex) 1 tab PO BID SUSAN Stop: 11/16/17 21:01 Last Admin: 10/24/17 21:33 Dose: 1 tab Nutritional Formula (Ensure Enlive) 237 ml PO BID SUSAN Stop: 11/17/17 21:01 Last Admin: 10/24/17 21:35 Dose: 237 ml Ondansetron HCl (Zofran) 4 mg IV Q6HP PRN PRN Reason: NAUSEA / VOMITING Stop: 11/16/17 15:32 Last Admin: 10/23/17 13:47 Dose: 4 mg Pantoprazole Sodium (Protonix Tab) 40 mg PO ACB SUSAN Stop: 11/16/17 16:01 Last Admin: 10/24/17 09:25 Dose: 40 mg Sodium Chloride (Normal Saline Flush) 10 ml IV BID SUSAN Stop: 11/16/17 21:01 Last Admin: 10/24/17 21:34 Dose: 10 ml Trazodone HCl (Desyrel) 150 mg PO BEDTIME SUSAN Stop: 11/20/17 21:01 Last Admin: 10/24/17 21:33 Dose: 150 mg Assessment/ Plan: Nephrology CPS stable without CP or SOB. No acute events overnight. Doing well. +Appetite Vitals, medications, blood work and imaging reviewed in the chart. General: Alert, Oriented x3, Cooperative HEENT: Atraumatic, Mucous membr. moist/pink Neck: Supple Respiratory: Clear to auscultation bilaterally Cardiovascular: LE edema 1+ L>R, Regular rate/rhythm, No rubs Gastrointestinal: Soft and benign, Non-distended, No guarding Musculoskeletal: No clubbing, No contractures Integumentary: No rashes, No cyanosis Neurological: Normal speech Laboratory Data (last 24 hrs) 10/17/17 13:05: PT 11.2, INR 0.95, APTT 27.2 10/17/17 13:05: WBC 9.1 D, Hgb 9.5 L, Hct 29.8 L, Plt Count 217 D 10/17/17 13:05: B-Natriuretic Peptide 449 H 10/17/17 13:05: Sodium 135, Potassium 4.0, BUN 33 H, Creatinine 2.09 H, Glucose 89, Magnesium 2.3 D, Total Bilirubin < 0.1 L, AST 13, ALT 7 L, Alkaline Phosphatase 51, Lipase 18 L Imagings Data: EXAM DESCRIPTION: RAD - Chest Single View - 10/17/2017 12:50 pm CLINICAL HISTORY: Cough COMPARISON: 02/05/2016 FINDINGS: Portable technique limits examination quality. The lungs are emphysematous but grossly clear. The heart is normal in size. No displaced fractures. IMPRESSION: No acute intrathoracic process suspected. Conclusions/Impression: A/ MINDI/ CKD IV, worse. Acidosis. Hyponatremia. HTN with CKD. Diastolic CHF, chronic. Anemia in chronic illness. Iron deficiency. Multiple LE traumatic fractures sp fall. Chronic pain syndrome. Slow transit constipation. P/ Continue current POC and Medications. Agree with IVF. Give IV iron X1 dose. Reduce hydralazine. Pain control as needed. AM labs. Daily weight. No NSAIDs. Case discussed with Dr. French.
[2017-10-25] MEDS: NA CHLORIDE 0.9% 1,000 ML IV SCH (03:50)
[2017-10-25 05:00] LABS: Absolute Lymphocytes (CBC) 0.6 K/uL (0.7-4.9); Absolute Monocytes 0.6 K/uL (0.1-1.3); Absolute Neutrophil 3.3 K/uL (1.8-8.0); Basophils % 0.6 % (0-1.3); Eosinophils % 4.3 % (0-4.4); Hematocrit 23.2 % (36.0-45.0); Lymphocytes % 12.5 % (15.3-44.8); MCH 29.2 pg (27.0-35.0); MCV 85.8 fL (80-100); Monocytes % 12.2 % (3.3-12.3)
[2017-10-25 05:26] LABS: AST/SGOT 15 IU/L (10-42); Alkaline Phosphatase 46 IU/L (42-121); BUN Blood Urea Nitrogen 60 mg/dL (6-20); Bicarbonate 29 mEq/L (21-31); Bilirubin Direct 0.1 mg/dL (0-0.2); Bilirubin Total 0.6 mg/dL (0.3-1.2); Glucose Level 100 mg/dL (65-120); Magnesium 1.9 mg/dL (1.8-2.5); Phosphorus 2.4 mg/dL (2.5-4.3); Potassium 4.2 mEq/L (3.6-5.0); Protein, Total 4.4 g/dL (6.0-8.3); Sodium Level 137 mEq/L (135-145); Uric Acid 8.7 mg/dL (2.6-8.0)
[2017-10-25 05:27] LABS: ALT/SGPT < 5 IU/L (10-60)
[2017-10-25] MEDS: ARFORMOTEROL TARTRATE 15 MCG/2 ML VIAL.NEB NEB SCH (07:24)
[2017-10-25 08:31] VITALS: O2SAT 93
[2017-10-25] MEDS: ENSURE ENLIVE 237 ML CAN PO SCH (09:00)
[2017-10-25] MEDS: [UNRECOGNIZED DRUG - OTHER] IH SCH (09:00)
[2017-10-25] MEDS ORDERED: SOD FERRIC GLUC COMPLX/SUCROSE 125 MG in NA CHLORIDE 0.9% 100 ML IV ONE ×2 (09:00→17:00)
[2017-10-25] MEDS: IRON 18 MG PO SCH (09:00)
[2017-10-25 09:09] VITALS: BP 152/70; TEMP 96.7
[2017-10-25] MEDS: VITAMIN D 5,000 UNIT CAP PO SCH (09:29)
[2017-10-25] MEDS: CETIRIZINE HCL 5 MG TABLET PO SCH (09:29)
[2017-10-25] MEDS: ASPIRIN EC 81 MG TAB PO SCH (09:29)
[2017-10-25] MEDS: LACTOBACILLUS/ACIDOPHILUS TAB PO SCH (09:29)
[2017-10-25] MEDS: ISOSORBIDE MONO SR 30 MG TAB PO SCH (09:29)
[2017-10-25] MEDS: ENOXAPARIN 30 MG/0.3 ML SQ SCH (09:29)
[2017-10-25] MEDS: CARVEDILOL 25 MG TAB PO SCH (09:30)
[2017-10-25] MEDS: GABAPENTIN 100 MG CAP PO PRN (09:30)
[2017-10-25] MEDS: DOCUSATE NA 100 MG CAP PO SCH (09:30)
[2017-10-25] MEDS: HYDRALAZINE HCL 25 MG TABLET PO SCH ×2 (09:30→14:39)
[2017-10-25] MEDS: CALCITROL 0.25 MCG CAP PO SCH (09:31)
[2017-10-25] MEDS: PANTOPRAZOLE 40MG TABLET PO SCH (09:31)
[2017-10-25 11:33] LABS: Hematocrit 23.4 % (36.0-45.0)
--- NOTE | 2017-10-25 14:09 | DS ---
Date of Discharge: 10/25/2017 Consultants: Dr. Holcomb with Nephrology, Dr. Galicia with Cardiology, Dr. Tillman with Orthopedic s. Procedures: On 10/19/2017, left tibial plateau open reduction and internal fixation with fixation of the extensor mechanism. Admitting Diagnoses: 1.Status post mechanical fall. 2.Closed fracture of both condyles and tibial plateau. 3.Tubular fracture. 4.Gastroesophageal reflux disease. 5.Neuropathy. 6.Anemia. 7.Chronic kidney disease. 8.Hypertension. 9.Chronic obstructive pulmonary disease. 10.Diarrhea. Discharge Diagnoses: 1.Status post mechanical fall. 2.Closed fracture of both condyles and tibial plateau. 3.Fibular fracture as above committed, initial encounter. 4.Gastroesophageal reflux disease without esophagitis. 5.Neuropathy. 6.Anemia of chronic disease and iron deficiency. 7.Acute on chronic kidney disease, stage 3. 8.Essential hypertension. 9.Chronic obstructive pulmonary disease, chronic bronchitis. The patient is oxygen dependent. 10.Diarrhea, resolved. Hospital Course: The patient is a 62-year-old female, who comes in with a fall, who fell forward on her knees and unable to get up, was found to have bilateral tibial fractures. Swelling and ecchymosi s around the knee were noted. She also had mild impacted fibular fracture. The patient was seen by Dr. Tillman with Orthopedics as well as Dr. Durham with Cardiology for cardiac clearance. The levon ent was cleared for surgery. Dr. Tillman performed the procedure as mentioned above. The patient did well postoperatively. She did have some postoperative anemia on top of her chronic anemia. Iron studies did show some iron deficiency. She was initially given 3 units of PRBCs overall. She was a lso placed on IV iron infusion. The patient did have some elevation in her creatinine and Nephrology was consulted. The patient did have some improvement with IV fluids. The patient had unilateral sw elling over left lower extremity. Doppler was done, which was negative. Her echocardiogram also prabhakar wed EF of 73%. The patient was then working with Physical Therapy. Of note, she will be nonweightbe aring on both lower extremities and not bend her knee. The patient will need to have sutures removed in 2 weeks, repeat knee x-ray in 2 weeks for further evaluation. The patient was then referred to i npatient rehab and was accepted. The patient was discharged to inpatient rehab once cleared by consu ltants' standpoint. Her kidney function did fluctuate, however, was trending downward. Her diarrhea had resolved and the patient's hemoglobin was stable with IV iron infusion. Discharge Condition: Stable. Activity: As per rehab. Diet: Heart healthy. Followup: Follow up with primary care physician in 2-3 days. Follow up with Dr. Tillman in 2 week s. Follow up with apprentice pattern maker, Dr. Holcomb in 2 weeks. Return to ER for worsening condition. Total time spent discharging the patient was 35 minutes. Physical Examination: General: Awake, alert, oriented, no acute distress. CV: S1, S2. No murmurs. Respiratory: Moving air well bilaterally. Abdomen: Soft, nontender, and nondistended. Positive bowel sounds. Extremities: No clubbing, cyanosis, edema. Musculoskeletal: Bilateral knee immobilizer. Incision site in the left lower extremity, clean, dry, intact. Neurologic: Nonfocal. SA/MODL Voice ID: [id number] Report ID: [id number]
--- NOTE | 2017-10-25 21:56 | P.PN ---
Date of Service: 10/25/17 Vital Signs Temp Pulse Resp BP Pulse Ox 96.7 F L 74 12 152/70 H 91 10/25/17 08:00 10/25/17 09:30 10/25/17 08:00 10/25/17 09:30 10/25/17 08:00 Assessment/ Plan: Nephrology CPS stable without CP or SOB. No acute events overnight. Doing well. +Appetite Vitals, medications, blood work and imaging reviewed in the chart. General: Alert, Oriented x3, Cooperative HEENT: Atraumatic, Mucous membr. moist/pink Neck: Supple Respiratory: Clear to auscultation bilaterally Cardiovascular: LE edema 1+ L>R, Regular rate/rhythm, No rubs Gastrointestinal: Soft and benign, Non-distended, No guarding Musculoskeletal: No clubbing, No contractures Integumentary: No rashes, No cyanosis Neurological: Normal speech Laboratory Data (last 24 hrs) 10/17/17 13:05: PT 11.2, INR 0.95, APTT 27.2 10/17/17 13:05: WBC 9.1 D, Hgb 9.5 L, Hct 29.8 L, Plt Count 217 D 10/17/17 13:05: B-Natriuretic Peptide 449 H 10/17/17 13:05: Sodium 135, Potassium 4.0, BUN 33 H, Creatinine 2.09 H, Glucose 89, Magnesium 2.3 D, Total Bilirubin < 0.1 L, AST 13, ALT 7 L, Alkaline Phosphatase 51, Lipase 18 L Imagings Data: EXAM DESCRIPTION: RAD - Chest Single View - 10/17/2017 12:50 pm CLINICAL HISTORY: Cough COMPARISON: 02/05/2016 FINDINGS: Portable technique limits examination quality. The lungs are emphysematous but grossly clear. The heart is normal in size. No displaced fractures. IMPRESSION: No acute intrathoracic process suspected. Conclusions/Impression: A/ MINDI/ CKD IV, worse. Acidosis. Hyponatremia. HTN with CKD. Diastolic CHF, chronic. Anemia in chronic illness. Iron deficiency. Multiple LE traumatic fractures sp fall. Chronic pain syndrome. Slow transit constipation. P/ Continue current POC and Medications. Continue IVF. Give IV iron X1 dose. Pain control as needed. AM labs. Daily weight. No NSAIDs. Case discussed with Dr. French. Possible transfer to rehab today.
== END 2017-10-25 14:55 | DRG 493 ==
LOC: ER 11:25 → ERHOLD 14:43 → 2ND 19:22
PROVIDERS: ADMIT Family Medicine; ATTEND Family Medicine
PROC: 0QSGXZZ Reposition Right Tibia, External Approach (ICD-10-PCS; 2017-10-19)
PROC: 0QSH04Z Reposition Left Tibia with Internal Fixation Device, Open Approach (ICD-10-PCS; principal; 2017-10-19 08:30)
DX: S82.142A Displaced bicondylar fracture of left tibia, initial encounter for closed fracture (principal); S82.141A Displaced bicondylar fracture of right tibia, initial encounter for closed fracture; N17.9 Acute kidney failure, unspecified; N18.4 Chronic kidney disease, stage 4 (severe); I13.0 Hypertensive heart and chronic kidney disease with heart failure and stage 1 through stage 4 chronic kidney disease, or unspecified chronic kidney disease; I50.32 Chronic diastolic (congestive) heart failure; Z68.1 Body mass index [BMI] 19.9 or less, adult; D62 Acute posthemorrhagic anemia; S82.451A Displaced comminuted fracture of shaft of right fibula, initial encounter for closed fracture; I12.9 Hypertensive chronic kidney disease with stage 1 through stage 4 chronic kidney disease, or unspecified chronic kidney disease; N18.3 Chronic kidney disease, stage 3 (moderate); E83.42 Hypomagnesemia; R19.7 Diarrhea, unspecified; D63.8 Anemia in other chronic diseases classified elsewhere; I73.9 Peripheral vascular disease, unspecified; R62.7 Adult failure to thrive; G62.9 Polyneuropathy, unspecified; E78.5 Hyperlipidemia, unspecified; K21.9 Gastro-esophageal reflux disease without esophagitis; J44.9 Chronic obstructive pulmonary disease, unspecified; F32.9 Major depressive disorder, single episode, unspecified; J30.9 Allergic rhinitis, unspecified; G89.4 Chronic pain syndrome; F17.200 Nicotine dependence, unspecified, uncomplicated
CPT/HCPCS: 36415; 71045; 73700; 80048; 80076; 81003; 81015; 82043; 82150; 82550; 82553; 82570; 82607; 82728; 83540; 83690; 83735; 83880; 84100; 84300; 84443; 84466; 84484; 84550; 85014; 85018; 85025; 85610; 85730; 86850; 86900; 86901; 87045; 87046; 87177; 87209; 87425; 87493; 89055; 93005; 93306; 93971; 94640; 96360; 96361; 96374; 96375; 97163; 99284; 99285; J0360; J0690; J1650; J1940; J2175; J2250; J2405; J2916; J3010; J3475; J7030; J7605; P9016

== ENCOUNTER 2017-10-24 13:41 | Inpatient (IN) | payer OTHER ==
--- NOTE | 2017-10-24 10:58 | R.PREADM ---
SCREENING DATE AND TIME 10/24/2017 09:40 (CDT) ANTICIPATED REHAB ADMISSION DATE 10/24/2017 REFERRING FACILITY [facility] REFERRAL DATE AND TIME 10/21/2017 14:33 (CDT) ACUTE ADMIT DATE 10/17/2017 Previous Rehabilitation(s): No. REFERRING PHYSICIAN [facility] RE[facility] FACILITY [facility] CLINICAL LIAISON Ruslan Mattson PHYSICIAN REVIEWER Dr. Marino Villar M.D. MR# [id number] NAME CHARIS MCKEON ADDRESS [address] [facility] PHONE [facility] [id number] DATE OF 1955 AGE 62 SSN# [id number] GENDER female MARITAL STATUS RACE white ADMIT FROM 02 - [facility] PRE-HOSPITAL LIVING SETTING 01 - Home (private home/apt. board/care, assisted living, detention, transitional living) HOME TYPE AND DETAILS Type of home: single family house # of levels in the residence: 1 # of steps within the residence: 0 # of steps to enter the residence: 0 PRE-HOSPITAL LIVING WITH Alone FAMILY SUPPORT No PRIMARY FAMILY CONTACT NAME Michelle Melchor PRIMARY FAMILY CONTACT PHONE PHONE PRIMARY FAMILY CONTACT ON ADM.? no IS PRIMARY FAMILY CONTACT AUTH. REP.? no 1ST EMERGENCY CONTACT Michelle Melchor 1ST CONTACT PHONE PHONE 1ST CONTACT ON ADM. no IS 1ST CONTACT AUTH. REP.? no PHONE 2ND CONTACT ON ADM.? no PATIENT EMPLOYMENT STATUS Retired (for age) PATIENT EMPLOYER No Employer PAYOR INFORMATION: 1ST PAYOR NAME MEDICARE 1ST PAYOR INJURY/ILLNESS DUE TO ACCIDENT? No ANOTHER DEMOCRAT RESPONSIBLE? No PRIMARY REHAB/ACUTE DIAGNOSIS: Bilateral Tibial Plateau Fracture ONSET DATE 10/17/2017 REHAB IMPAIRMENT CATEGORY (JEANNIE): 09 Orthopaedic (Ortho) does NOT meet 60% rule AFFECTED EXTREMITIES: BLE PRIMARY DIAGNOSIS-RELATED SURGERIES: Left ORIF of Tibial Plateau Fracture,Patella Tendon Repair COMORBID REHAB/ACUTE DIAGNOSES: - N/A COPD HTN GERD Chronic Renal Disease Depression Hyperlipidemia Carotid Arterial Disease Allergic Rhinitis Colon Polyps Neuropathy INTERVENTIONS: - COPD 02 sats Medications Nebulizers Oxygen Resp. therapy X-rays - GERD Altered diet Elevation of head of bed Medications Nausea/vomiting Nighttime food/fluid restrictions Nutrition - Depression Medications Psycho/social Safety - Neuropathy Education Medications Safety RISK FOR COMPLICATIONS: - COPD Acute Resp failure Pneumonia Resp. Arrest - GERD Alteration in sleep Aspiration Dehydration Malnutrition Pain - Depression Serotonin side effects - Neuropathy Falls Sensory Deficits Skin breakdown SUMMARY OF ACUTE HOSPITALIZATION: Pt. is a 62 yo Right-handed white female. On 10/17/2017 she was admitted to [facility] with diagnosis Bilateral Tibial Pl ateau Fracture. Her impairment category is Orthopaedic Disorders 08 - Other Orthopaedic (08.9). Pre-morbidly, Pt. was independent/mod-I in Sphincter Control, Transfers Control, Communication, Socia l Cognition, Self-Care, and Locomotion; and she had good Sphincter Control. Currently, she has deficits of Endurance, Safety Awareness, Transfers Control, Balance, Self-Care, an d Locomotion. Pt. is now referred to [facility] for acute in-patient rehabilitation in order to maximize patient's functional independence in activities of daily living, strength, ROM, and mobi lity. Patient has realistic goal of being discharged at assistance level 6-Nestor to reside at Home with Fam ani/Relatives. PAST MEDICAL HISTORY Allergic Rhinitis COPD Carotid Arterial Disease Chronic Renal Disease Colon Polyps Depression GERD HTN Hyperlipidemia Neuropathy PAST SURGICAL HISTORY: Bilateral hip replacements C- section Tonsillectomy MEDICATION ALLERGIES: Clindamycin Sulfamethoxazole Trimethoprim Clonidine Losartan ENVIRONMENTAL ALLERGIES: None Known - Substance Allergies None Known - Other Allergies None Known CODE STATUS: Full code WEIGHT/HEIGHT/BMI: WEIGHT 92 lbs HEIGHT 5' 1" BMI 17.4 DIET: - Diet Type Regular - Diet - Solid Texture Regular - Diet - Liquid Texture Regular - Tube Feed N/A SKIN DIAGRAM: Incision on Left upper leg; extent - small; stage - NS(Not Stageable). Treatment - Per Physician's Or ders. Incision on Right upper leg; extent - small; stage - NS(Not Stageable). Treatment - Per Physician's O rders. REVIEW OF SYSTEMS: - Gen Alert and awake Lying in bed No apparent distress Oriented to: person, time, and place - Vital Signs Temperature: 99.3 F SBP/DBP: 158/68 Pulse: 65 Resp: 16 Vital signs stable, afebrile - CVS RRR VITAL SIGNS Temperature: 99.3 F SBP/DBP: 158/68 Pulse: 65 Resp: 16 Vital signs stable, afebrile CURRENT SPHINCTER CONTROL: Pre-hospital bladder status: incontinent # of bladder accidents in the last 7 days prior to screenin Pre-hospital bowel status: continent # of bowel accidents in the last 7 days prior to screenin Last Bowel Movement Date: DETAILED CURRENT FUNCTIONAL STATUS: - Bladder Bladder control device used: catheter accident frequency: Ind - No accidents in the past 7 days - Bowel accident frequency: Ind - No accidents in the past 7 days - Walking score based on distance walked: 0(N/A) - Wheelchair score based on distance traveled: 0(N/A) FUNCTIONAL STATUS: - Self-Care A. Eating Ind sup B. Grooming Ind sup C. Bathing Ind Dep D. Dressing - Upper Ind Dep E. Dressing - Lower Ind Dep F. Toileting Ind Dep - Sphincter Control G: Bladder control Ind Dep H: Bowel control Ind Nestor - Transfers Control I. Bed/Chair/Wheelchair Ind Dep J. Toilet Ind Dep K. Tub/Shower Ind ADNO - Locomotion L. Walk/Wheelchair (C) Ind Dep L. Walk/Wheelchair (W) Ind ADNO M. Stairs Ind ADNO - Communication N. Comprehension (B) Ind Nestor O. Expression (B) Ind Nestor - Social Cognition P. Social Interaction Ind Nestor Q. Problem Solving Ind Nestor R. Memory Ind Nestor - Endurance Poor - Balance Poor - Safety Awareness Poor CURRENT FUNC. DEFICITS: Endurance, Safety Awareness, Transfers Control, Balance, Self-Care, and Locomotion THERAPY NOTES FROM ACUTE CARE: Attached. SPECIAL NEEDS: - Safety Concerns Skin breakdown precautions needed due to skin breakdown risk PRECAUTIONS: - Weight Bearing Precaution NWB both LE - Fall Precaution Bed and chair alarm PATIENT NEEDS ACTIVE AND ONGOING THERAPEUTIC INTERVENTION OF MULTIPLE THERAPY DISCIPLINES, INCLUDING: - Occupational Therapy Evaluate and Treat. - Physical Therapy Evaluate and Treat. PATIENT NEEDS CLOSE MEDICAL SUPERVISION BY A REHABILITATION PHYSICIAN FOR: Bowel and Bladder Management Coordination of Treatment Team Medical and Co-Morbidity Management Wound Care DVT Management Pain Management Post-Op Complications PATIENT REQUIRES 24X7 REHAB NURSING FOR MEDICAL AND FUNCTIONAL MGT. OF THE FOLLOWING DEFICITS: ADL's Ambulation Bowel and Bladder Management Cognition Communication Disease Management Medication Management Patient/Family Education Providing Safe Environment Skin Integrity Transfers Pain Management PATIENT REQUIRES INTENSIVE, COORDINATED INTERDISCIPLINARY APPROACH TO REHAB: Arranging Home Equipment/Services Discharge Planning Family Intervention/Training Student Services Dean/Case Management PATIENT REHAB POTENTIAL: Expected level of measurable improvement will be of a practical value to patient's functional capacit y or adaptations to impairments Has a viable Discharge Plan Medically appropriate; condition is sufficiently stable to participate in intensive rehab program Patient is able and expected to receive 3 hours of individualized therapy daily on at least 5 of ever y 7 days Patient's prognosis for significant practical improvement within a reasonable period of time appears Good DISCHARGE PLAN: - Estimated Length of Stay (days) 12. - Consensus on plan Discharge plan has been discussed with primary caregiver. Patient/Family is in agreement with the naina n. Primary caregiver is in agreement with the plan. - Patient/Family Goals Return home with assistance. - Planned Living Setting Upon Discharge Home, to live with Family/Relatives. RECOMMENDED CARE LEVEL: IRF RECOMMENDATION DETAILS: Recommended Admission to Comprehensive Rehabilitation Program to Increase Functional Dillon SCREENER'S COMPLETENESS CONFIRMATION: - Screening Confirmation The patient data collection on this preadmission screening form is finished PHYSICIANS REVIEW AND ADMISSION DETERMINATION Admit - Based on my review of the Pre-Admission Screening results, in my medical judgment and experie nce, I concur with the findings and recommend admission to [facility], as this patient requires an IRF level of care. SIGNATURE PANEL: Clinical Liaison - [electronically] signed by Ruslan Mattson on 10/24/2017 at 09:47 (CDT) Physician Reviewer - [electronically] signed by Dr. Marino Villar M.D. on 10/24/2017 at 09:58 (CDT )
--- OUTSIDE RECORDS SUMMARY | 2017-10-25 15:01 | XMS REPORT | Clinical Summary ---
:1955 Author Organization [facility] Address [address] [place] [address] Phone Care Team Providers Name Role Phone [...] Not on file Results Not on fileafter 10/24/2016
[2017-10-25] MEDS ORDERED: GABAPENTIN 100 MG CAP PO PRN (15:16)
[2017-10-25] MEDS ORDERED: TRAMADOL HCL 50 MG TAB PO PRN (15:16)
[2017-10-25] MEDS ORDERED: ALBUTEROL 2.5 MG/3 ML NEB SOL NEB PRN (15:43)
[2017-10-25] MEDS: ENOXAPARIN 30 MG/0.3 ML SQ SCH (16:00)
--- NOTE | 2017-10-25 17:58 | FAST ---
SHIFT START DATE/TIME: 10/25/2017 07:00 (CDT) SHIFT END DATE/TIME: 10/25/2017 19:00 (CDT) NAME CHARIS MCKEON DATE OF : 1955 DATE OF ADMISSION: 10/25/2017 14:59 (CDT) PHONE: AGE: 62 N# [id number] GENDER: Female ENCOUNTER PHYSICIAN: Dr. Marino Villar M.D. ADMISSION DIAGNOSIS: - Orthopaedic Disorders 08 - Other Orthopaedic (08.9) Bilateral Tibial Plateau Fracture. EATING: EATING - STEP 1: Does the patient require assistance when eating? Yes. EATING - STEP 2: Does the patient require the assistance of a helper? No, patient only requires an assistive device, O R s/he takes more than reasonable time to eat, OR there is a safety concern, OR s/he requires modifie d food consistency EATING - SCORE: 6-DANIEL GROOMING: Activity did not occur on this shift GROOMING - SCORE: 0-UNK BATHING: Abdomen Buttocks Chest Left arm Perineal area Right arm BATHING - STEP 1: Does the patient require assistance when bathing? Yes. BATHING - STEP 2: Does the patient require the assistance of a helper? Yes. BATHING - STEP 3: How much assistance does the patient require from the helper? More than just incidental help BATHING - STEP 4: What percent of the body parts did the patient bathe WITHOUT the helper? Less than half of the body p arts BATHING - SCORE: 2-MAX BATHING - COMMENTS: DRESSING - UPPER BODY: Patient is not dressing in public clothing ARTICLES SCORE Total number of steps: 0 DRESSING - UPPER BODY - SCORE: 0-UNK DRESSING - LOWER BODY: Patient is not dressing in public clothing ARTICLES SCORE Total number of steps: 0 DRESSING - LOWER BODY - SCORE: 0-UNK TOILETING: Activity did not occur on this shift TOILETING - SCORE: 0-UNK BLADDER MANAGEMENT: [place] cares for leyva catheter including emptying drainage bag. BLADDER MANAGEMENT - SCORE: 1-DEP BOWEL MANAGEMENT: Activity did not occur on this shift BOWEL MANAGEMENT - SCORE: 7-IND TRANSFERS: BED, CHAIR, WHEELCHAIR: Patient requires more than one helper and/or the use of a mechanical lift is utilized TRANSFERS: BED, CHAIR, WHEELCHAIR - SCORE: 1-DEP TRANSFERS: TOILET: Patient requires more than one helper and/or the use of a mechanical lift is utilized TRANSFERS: TOILET - SCORE: 1-DEP TRANSFERS: SHOWER: Activity did not occur on this shift TRANSFERS: SHOWER - SCORE: 0-UNK TRANSFERS: TUB: Activity did not occur on this shift TRANSFERS: TUB - SCORE: 0-UNK LOCOMOTION: WALK: Activity did not occur on this shift LOCOMOTION: WALK - SCORE: 0-UNK LOCOMOTION: WHEELCHAIR: Activity did not occur on this shift LOCOMOTION: WHEELCHAIR - SCORE: 0-UNK COMPREHENSION: COMPREHENSION - SCORE: 0-UNK EXPRESSION EXPRESSION - SCORE: 0-UNK SOCIAL INTERACTION: SOCIAL INTERACTION - SCORE: 0-UNK PROBLEM SOLVING: PROBLEM SOLVING - SCORE: 0-UNK MEMORY: MEMORY - SCORE: 0-UNK SIGNATURE PANEL: The following modified sections: Eating - Score, Grooming - Score, Bathing - Score, Dressing - Upper Body - Score, Dressing - Lower Body - Score, Toileting - Score, Bladder Management - Score, Bowel Man agement - Score, Transfers: Toilet - Score, Transfers: Shower - Score, Transfers: Tub - Score, Locomo tion: Walk - Score, Locomotion: Wheelchair - Score, Comprehension - Score, Expression - Score, Social Interaction - Score, Problem Solving - Score, Memory - Score, Transfers: Bed, Chair, Wheelchair - Sc ore, Bathing - Comments: were [electronically] signed by Riccardo Brunner on TueOct 25 2017 16:58:29 GMT-0 500 (Central Daylight Time)
[2017-10-25] MEDS ORDERED: CARVEDILOL 25 MG TAB PO SCH (18:00)
[2017-10-25] MEDS: ENSURE ENLIVE 237 ML CAN PO SCH (20:00)
[2017-10-25] MEDS ORDERED: ISOSORBIDE MONO 10 MG TAB PO SCH ×2 (20:00→22:20)
--- NOTE | 2017-10-25 20:14 | R.HP ---
FACILITY: [facility] ENCOUNTER DATE AND TIME: 10/25/2017 19:11 (CDT) MR#: [id number] NAME CHARIS MCKEON ADDRESS: [address] [place] [address] CITY: [place]IP [address] PHONE: DATE OF : 1955 AGE: 62 SSN# [id number] GENDER: Female DEXTERITY Right-handed MARITAL STATUS RACE White PRE-HOSPITAL LIVING SETTING 01 - Home (private home/apt. board/care, assisted living, detention, transitional living) PRE-HOSPITAL LIVING WITH Alone ENCOUNTER PHYSICIAN: Dr. Marino Villar M.D. REFERRING DOCTOR: SURINDER KEEN DATE OF ADMISSION: 10/25/2017 14:59 (CDT) REFERRING FACILITY [facility] HOME TYPE AND DETAILS: Type of home: single family house # of levels in the residence: 1 # of steps within the residence: 0 # of steps to enter the residence: 0 ADMISSION DIAGNOSIS: Bilateral Tibial Plateau Fracture ONSET DATE: 10/17/2017 PRIMARY DIAGNOSIS-RELATED SURGERIES: Left ORIF of Tibial Plateau Fracture,Patella Tendon Repair SECONDARY/COMORBID DIAGNOSES (TIERED): - N/A COPD HTN GERD Chronic Renal Disease Depression Hyperlipidemia Carotid Arterial Disease Allergic Rhinitis Colon Polyps Neuropathy HISTORY OF PRESENT ILLNESS (HPI): Pt. is a 62 yo Right-handed white female. On 10/17/2017 she was admitted to [facility] with diagnosis Bilateral Tibial Pl ateau Fracture. Her impairment category is Orthopaedic Disorders 08 - Other Orthopaedic (08.9). Pre-morbidly, Pt. was independent/mod-I in Sphincter Control, Transfers Control, Communication, Socia l Cognition, Self-Care, and Locomotion; and she had good Sphincter Control. Currently, she has deficits of Endurance, Safety Awareness, Transfers Control, Balance, Self-Care, an d Locomotion. Pt. is now referred to [facility] for acute in-patient rehabilitation in order to maximize patient's functional independence in activities of daily living, strength, ROM, and mobi lity. Patient has realistic goal of being discharged at assistance level 6-Nestor to reside at Home with Fam ani/Relatives. MEDICATION ALLERGIES: Clindamycin Sulfamethoxazole Trimethoprim Clonidine Losartan ENVIRONMENTAL ALLERGIES: None Known - Substance Allergies None Known - Other Allergies None Known PAST MEDICAL HISTORY: Allergic Rhinitis COPD Carotid Arterial Disease Chronic Renal Disease Colon Polyps Depression GERD HTN Hyperlipidemia Neuropathy PAST SURGICAL HISTORY: Bilateral hip replacements C- section Tonsillectomy FAMILY HISTORY: Family history is not contributory. SOCIAL HISTORY: - Home Living Alone REVIEW OF SYSTEMS: - Gen No Chills No Fatigue No Fever - Eyes No Double Vision No itchiness - ENMT No Difficulty Swallowing - CVS No Chest Discomfort No Chest Pain No Fatigue No Weight Gain - Resp No Cough No Shortness of Breath - GI Continent No Abdominal Pain No Constipation No Diarrhea - Continent No Kidney Pain No Painful Urination No Urinary Urgency - MSK No Joint Pain No Muscle Cramps No Stiffness - Skin No Itching No Rash No Suspicious Lesions - Neuro No Coordination Difficulty No Difficulty with Concentration No Memory Loss No Seizures No Weakness - Psych No Anxiety No Depression No HIV Exposure No Persistent Infections No Seasonal Allergies - Endo No Cold/Heat Intolerance No Excessive Hunger No Excessive Thirst No Excessive Urination PHYSICAL EXAM - Gen Alert and awake Lying in bed No apparent distress Oriented to: person, time, and place - Vital Signs Temperature: 99.3 F SBP/DBP: 158/68 Pulse: 65 Resp: 16 Vital signs stable, afebrile - Skin No skin breakdown. Normacephalic - Eyes No abnormalities - ENMT No abnormalities - Neck No abnormalities - CVS RRR - Chest Clear - Abd Soft - GI Non distended Deferred - No abnormalities - Ext No significant edema - MSK Unremarkable - Neuro No focal deficits - Psych No abnormalities VITAL SIGNS Temperature: 99.3 F SBP/DBP: 158/68 Pulse: 65 Resp: 16 Vital signs stable, afebrile NURSING: - Shower allowing shower - Skin care per protocol PRECAUTIONS: - Weight Bearing Precaution NWB both LE - Fall Precaution Bed and chair alarm ACTIVITIES OOB only with supervision FUNCTIONAL STATUS: - Self-Care A. Eating Ind sup B. Grooming Ind sup C. Bathing Ind Dep D. Dressing - Upper Ind Dep E. Dressing - Lower Ind Dep F. Toileting Ind Dep - Sphincter Control G: Bladder control Ind Dep H: Bowel control Ind Nestor - Transfers Control I. Bed/Chair/Wheelchair Ind Dep J. Toilet Ind Dep K. Tub/Shower Ind ADNO - Locomotion L. Walk/Wheelchair (C) Ind Dep L. Walk/Wheelchair (W) Ind ADNO M. Stairs Ind ADNO - Communication N. Comprehension (B) Ind Nestor O. Expression (B) Ind Nestor - Social Cognition P. Social Interaction Ind Nestor Q. Problem Solving Ind Nestor R. Memory Ind Nestor - Endurance Poor - Balance Poor - Safety Awareness Poor CURRENT FUNC. DEFICITS: Endurance, Safety Awareness, Transfers Control, Balance, Self-Care, and Locomotion ASSESSMENT: Pt. is a 62 yo Right-handed white female.On 10/17/2017 she was admitted to [facility] with diagnosis Bilateral Tibial Plateau Fracture.Her impairment category is Orthopaedic Disord ers 08 - Other Orthopaedic (08.9).Pre-morbidly, Pt. was independent/mod-I in Sphincter Control, Castañeda sfers Control, Communication, Social Cognition, Self-Care, and Locomotion; and she had good Sphincter Control.Currently, she has deficits of Endurance, Safety Awareness, Transfers Control, Balance, Self -Care, and Locomotion.Pt. is now referred to [facility] for acute in-patient r ehabilitation in order to maximize patient's functional independence in activities of daily living, s trength, ROM, and mobility.- Rehab Goal Patient has realistic goal of being discharged at assistance level 6-Nestor to reside at Home with Fam ani/Relatives. REHAB PLAN: - Physical Therapy Decreased range of motion - to improve, our physical therapists will perform initial evaluation of pt 's status upon admission and devise an individualized program for increasing patient's Range of Motio n. Gait dysfunction - to improve, our physical therapists will perform initial evaluation of pt's status upon admission and devise an individualized program for Gait Training, and Wheel Chair mobility Inability to transfer - to improve, our physical therapists will perform initial evaluation of pt's s tatus upon admission and devise an individualized program for Bed mobility Need for home safety evaluation - to improve, our physical therapists will perform initial evaluation of pt's status upon admission and devise an individualized program for Home Evaluation Need in caregiver upon discharge - to improve, our physical therapists will perform initial evaluatio n of pt's status upon admission and devise an individualized program for Caregiver Training New precaution - to improve, our physical therapists will perform initial evaluation of pt's status u artie admission and devise an individualized program for Patient precaution education Edema - to improve, our physical therapists will perform initial evaluation of pt's status upon admi ssion and devise an individualized program for Elevation Training, and Lymphedema Therapy Poor balance - to improve, our physical therapists will perform initial evaluation of pt's status upo n admission and devise an individualized program for Balance Training Poor endurance - to improve, our physical therapists will perform initial evaluation of pt's status u artie admission and devise an individualized program for Endurance Training Weakness - to improve, our physical therapists will perform initial evaluation of pt's status upon ad mission and devise an individualized program for Aquatic Therapy, Neuromuscular Reeducation, and Stre ngthening Achieving independence - to improve, our physical therapists will perform initial evaluation of pt's status upon admission and devise an individualized program for Community Reintegration Activities - Occupational Therapy ADL deficits - to improve, our occupation therapists will perform initial evaluation of pt's status u artie admission and devise an individualized program for Bathing, Bed mobility, Community Reintegration , Cooking, Dressing, Eating, Fine Motor Skills, Grooming, Homemaking, Kitchen Mobility, Laundry, Delmy ent Education, Safety Awareness, Splinting - Positioning, Transfers(Toilet, Tub, Shower), and Wheel C hair Management Need for health care marketing specialist - to improve, our occupation therapists will perform initial evaluation of pt's s tatus upon admission and devise an individualized program for Caregiver Training Weakness - to improve, our occupation therapists will perform initial evaluation of pt's status upon admission and devise an individualized program for Aquatic Therapy, Balance, Endurance, UE ROM, and U E strengthening MEDICAL PLAN: - Diet Type Start Regular - Diet - Liquid Texture Start Regular - Tube Feed Start N/A - Weight Bearing Precaution NWB both LE - Fall Precaution Bed and chair alarm - Skin care per protocol - Diet - Solid Texture Regular - Shower shower DISCHARGE PLAN: - Estimated Length of Stay (days) 12. - Consensus on plan Discharge plan has been discussed with primary caregiver. Patient/Family is in agreement with the naina n. Primary caregiver is in agreement with the plan. - Patient/Family Goals Return home with assistance. - Planned Living Setting Upon Discharge Home, to live with Family/Relatives. SIGNATURE PANEL: (CDT)
--- NOTE | 2017-10-25 20:15 | PAPE ---
PATIENT: [facility] MR# [id number] REFERRING DOCTOR SURINDER KEEN EVALUATION DATE AND TIME 10/25/2017 19:15 (CDT) NAME CHARIS MCKEON DATE OF 1955 AGE 62 PHONE N# [id number] GENDER female EVALUATING PHYSICIAN Dr. Marino Villar M.D. ADMISSION DIAGNOSIS: Bilateral Tibial Plateau Fracture ONSET DATE 10/17/2017 SECONDARY/COMORBID DIAGNOSES TIERED: - N/A COPD HTN GERD Chronic Renal Disease Depression Hyperlipidemia Carotid Arterial Disease Allergic Rhinitis Colon Polyps Neuropathy POST-ADMISSION FUNCTIONAL/MEDICAL STATUS: - Bladder Same Bladder control device used: catheter Same accident frequency: Ind - No accidents in the past 7 days - Bowel Same accident frequency: Ind - No accidents in the past 7 days - Walking Same score based on distance walked: 0(N/A) - Wheelchair Same score based on distance traveled: 0(N/A) STATUS CHANGE EVALUATION: No change in Functional or Medical Status is identified compared with Pre-Admission screening. PATIENT NEEDS CLOSE MEDICAL SUPERVISION BY A REHABILITATION PHYSICIAN FOR: Bowel and Bladder Management Coordination of Treatment Team Medical and Co-Morbidity Management Wound Care DVT Management Pain Management Post-Op Complications PATIENT REQUIRES 24X7 REHAB NURSING FOR MEDICAL AND FUNCTIONAL MGT. OF THE FOLLOWING DEFICITS: ADL's Ambulation Bowel and Bladder Management Cognition Communication Disease Management Medication Management Patient/Family Education Providing Safe Environment Skin Integrity Transfers Pain Management PATIENT REQUIRES INTENSIVE, COORDINATED INTERDISCIPLINARY APPROACH TO REHAB: Arranging Home Equipment/Services Discharge Planning Family Intervention/Training Rn Correctional/Case Management LIST OF IDENTIFIED AND POTENTIAL PROBLEMS: Alteration in leisure activities Bladder, Incontinence Bowel, Incontinence Depression, Actual or Potential Infection, Actual or Potential Mobility Impaired Pain, Alteration in Comfort Self Care Deficit Skin Integrity, Actual or Potential Urinary Tract Infection (UTI), Actual or Potential RISK FOR COMPLICATIONS - COPD Acute Resp failure. Pneumonia. Resp. Arrest. - GERD Alteration in sleep. Aspiration. Dehydration. Malnutrition. Pain. - Depression Serotonin side effects. - Neuropathy Falls. Sensory Deficits. Skin breakdown. INTERVENTIONS - COPD 02 sats. Medications. Nebulizers. Oxygen. Resp. therapy. X-rays. - GERD Altered diet. Elevation of head of bed. Medications. Nausea/vomiting. Nighttime food/fluid restrictio ns. Nutrition. - Depression Medications. Psycho/social. Safety. - Neuropathy Education. Medications. Safety. PATIENT COULD BE AT RISK FOR COMPLICATIONS FROM ADVERSE MEDICAL CONDITIONS DUE TO HIS/HER COMORBIDITI ES AND THE RIGORS OF THE INTENSIVE REHABILLITATION PROGRAM. METHODS OR INTERVENTIONS TO AVOID COMPLIC ATIONS INCLUDE: - Deep Vein Thrombosis (DVT) Prophylaxis therapy for prevention . Sequential Compression Device (SCD). TE D Hose. - Bleeding Assess lab values and manage abnormalities. Nursing to teach precautions for anti-coagulation therapy . Wound to be assessed every shift. - Infection Clinical staff to assess and manage the signs and symptoms of infection including fever, redness, war mth, etc. - Urinary Tract Infection - Falls Patient will be evaluated for Fall Precautions and will be placed on Fall Precautions as indicated pe r protocol. - Skin Breakdown Nursing will assess skin daily using assessment tool and will place on Skin Breakdown Precautions as indicated per protocol. - Pain Clinical staff may employ non-medication methods such as massage, distraction, decrease stimulus, etc . as needed. Clinical staff will assess patient's pain level every shift per protocol to assess and e nsure pain management effectiveness. Medications will be given and the pain level re-assessed. PRELIMINARY PLAN OF CARE: - Physical Therapy Patient needs Physical Therapy for a daily minimum of 1.5 hours at least 5 out of 7 days, to improve: Mobility, Strengthening, Transfers, Stretching, ROM, Endurance, Ability to manage stairs, Gait, and Balance. - Rehabilitation Nursing Patient requires 24x7 Rehabilitation Nursing for: Pain Issues, Identifying and preventing risk factor s, Monitoring and reporting current medical conditions, Assisting with ambulation and transfer, Shelli ting with all ADL-s, Teaching patients about disease process and medications, Family teaching, Provid ing safe environment, Bowel and Bladder Issues, Skin Integrity, and Medication Management. Patient needs Rn Correctional and/or Case Management for: Discharge Planning, Arranging Home Equipmen t or Services, and Family Interventions. - Dietary and Nutrition Services Patient needs Dietary and Nutrition Services for: Adequate Nutrition, Nutritional Supplements, and Nu tritional Education. - Occupational Therapy Patient needs Occupational Therapy for a daily minimum of 1.5 hours at least 5 out of 7 days, to impr ove Activities of Daily Living, including: Eating, Grooming, Bathing, Dressing, Toileting, Toilet Tra nsfers, Community Reintegration, Higher functional activities, Adaptive Equipment, Splinting, Househo ld Tasks, and Other activities as determined. POTENTIAL FUNCTIONAL GOALS FOR PATIENT TO ACHIEVE BY DISCHARGE: - Safety Precaution Patient will remain free from falls or injury at time of discharge. - Bed Mobility Patient will perform bed mobility at 4-Alison level of assistance. - Transfers Patient will complete transfers from bed to chair at 4-Alison level of assistance. - Mobility Patient will ambulate 150 ft with 4-Alison level of assistance with RW. PATIENT REHAB POTENTIAL Expected level of measurable improvement will be of a practical value to patient's functional capacit y or adaptations to impairments Has a viable Discharge Plan Medically appropriate; condition is sufficiently stable to participate in intensive rehab program Patient is able and expected to receive 3 hours of individualized therapy daily on at least 5 of ever y 7 days Patient's prognosis for significant practical improvement within a reasonable period of time appears Good DISCHARGE PLAN: - Estimated Length of Stay (days) 12. - Consensus on plan Discharge plan has been discussed with primary caregiver. Patient/Family is in agreement with the naina n. Primary caregiver is in agreement with the plan. - Patient/Family Goals Return home with assistance. - Planned Living Setting Upon Discharge Home, to live with Family/Relatives. CONCLUSION ON REHABILITATION NECESSITY: I have evaluated patient's pre-admission functional status and, comparing it to the patient's post-ad mission functional status now, I conclude that the pre-admission assessment was accurate. Patient's c ondition on admission supports the medical necessity of admission to IRF. It is safe to proceed with patient's therapy program. SIGNATURE PANEL: (CDT)
[2017-10-25] MEDS ORDERED: DOCUSATE NA/SENNA CONC 1 TAB PO PRN (20:24)
[2017-10-25] MEDS ORDERED: BISACODYL 10 MG RECTAL SUPP PR PRN (20:24)
[2017-10-25] MEDS ORDERED: MAGNESIUM HYDROXIDE 8% 30 ML PO PRN (20:24)
[2017-10-25] MEDS ORDERED: FLEET ENEMA ADULT PR PRN (20:25)
[2017-10-25] MEDS: DOCUSATE NA 100 MG CAP PO SCH (20:35)
[2017-10-25] MEDS: TRAZODONE 150 MG TAB PO SCH (20:35)
[2017-10-25] MEDS: MIRTAZAPINE 15 MG TAB PO SCH (20:36)
[2017-10-25 20:59] LABS: Urine Appearance CLEAR; Urine Bilirubin NEGATIVE (NEG); Urine Blood NEGATIVE (NEG); Urine Color YELLOW; Urine Glucose NEGATIVE (NEG); Urine Protein 1+ (NEG); Urine Specific Gravity 1.015 (1.005-1.030); Urine Urobilinogen 0.2 mg/dL (0.2-1.0)
[2017-10-25] MEDS ORDERED: TRAZODONE 50 MG TABLET PO SCH (21:00)
[2017-10-25] MEDS ORDERED: HYDRALAZINE HCL 25 MG TABLET PO SCH (21:00)
[2017-10-25 21:32] LABS: Urine Bacteria 20-50 /HPF (<20); Urine RBC <5 /HPF (NONE SEEN)
[2017-10-25 21:33] LABS: Urine Culture Reflex Order NOT NEEDED; Urine Mucus 1+ /HPF (NONE SEEN)
--- NOTE | 2017-10-26 03:21 | FAST ---
SHIFT START DATE/TIME: 10/25/2017 19:00 (CDT) SHIFT END DATE/TIME: 10/26/2017 07:00 (CDT) NAME CHARIS MCKEON DATE OF : 1955 DATE OF ADMISSION: 10/25/2017 14:59 (CDT) PHONE: AGE: 62 N# [id number] GENDER: Female ENCOUNTER PHYSICIAN: Dr. Marino Villar M.D. ADMISSION DIAGNOSIS: - Orthopaedic Disorders 08 - Other Orthopaedic (08.9) Bilateral Tibial Plateau Fracture. EATING: Activity did not occur on this shift EATING - SCORE: 0-UNK GROOMING: Activity did not occur on this shift GROOMING - SCORE: 0-UNK BATHING: Activity did not occur on this shift BATHING - SCORE: 0-UNK DRESSING - UPPER BODY: Activity did not occur on this shift ARTICLES SCORE Total number of steps: 0 DRESSING - UPPER BODY - SCORE: 0-UNK DRESSING - LOWER BODY: Activity did not occur on this shift ARTICLES SCORE Total number of steps: 0 DRESSING - LOWER BODY - SCORE: 0-UNK TOILETING: Activity did not occur on this shift TOILETING - SCORE: 0-UNK BLADDER MANAGEMENT: [place] cares for leyva catheter including emptying drainage bag. BLADDER MANAGEMENT - SCORE: 1-DEP BOWEL MANAGEMENT: Activity did not occur on this shift BOWEL MANAGEMENT - SCORE: 7-IND TRANSFERS: BED, CHAIR, WHEELCHAIR: Activity did not occur on this shift TRANSFERS: BED, CHAIR, WHEELCHAIR - SCORE: 0-UNK TRANSFERS: TOILET: Activity did not occur on this shift TRANSFERS: TOILET - SCORE: 0-UNK TRANSFERS: SHOWER: Activity did not occur on this shift TRANSFERS: SHOWER - SCORE: 0-UNK TRANSFERS: TUB: Activity did not occur on this shift TRANSFERS: TUB - SCORE: 0-UNK LOCOMOTION: WALK: Activity did not occur on this shift LOCOMOTION: WALK - SCORE: 0-UNK LOCOMOTION: WHEELCHAIR: Activity did not occur on this shift LOCOMOTION: WHEELCHAIR - SCORE: 0-UNK COMPREHENSION: COMPREHENSION - STEP 1: Does the patient require help to understand complex and abstract ideas (such as current events, finan pari, discharge planning, medical issues, relationships, etc)? No. COMPREHENSION - STEP 2: Does the patient need extra time, require an assistive device (such as glasses, hearing aids, or an a ugmentative communication system), OR does s/he have mild difficulty expressing complex and abstract ideas (including mild dysarthria or mild word-finding problems)? Yes. COMPREHENSION - SCORE: 6-DANIEL EXPRESSION EXPRESSION - STEP 1: Does the patient require help expressing complex and abstract ideas (such as current events, finances , discharge planning, medical issues, relationships, etc)? No. EXPRESSION - STEP 2: Does the patient need extra time, require an assistive device (such as augmentive communication syste m or a communication board), OR does s/he have mild difficulty expressing complex and abstract ideas (including mild dysarthria or mild word-find problems)? No. EXPRESSION - SCORE: 7-IND SOCIAL INTERACTION: SOCIAL INTERACTION - STEP 1: Does the patient require a helper to interact with others in social and therapeutic situations? No. SOCIAL INTERACTION - STEP 2: Does the patient need extra time in social situations, OR does s/he interact with staff, other patien ts, and family members ONLY in structured environments, OR does s/he require medication for social in teraction? Yes, patient requires medication for social interaction SOCIAL INTERACTION - SCORE: 6-DANIEL PROBLEM SOLVING: PROBLEM SOLVING - STEP 1: Does the patient need help to solve complex problems such as managing a checking account or confronti ng interpersonal problems? No. PROBLEM SOLVING - STEP 2: Does the patient require extra time to make decisions or solve problems, OR does s/he have slight dif ficulty reading, initiating, or self-correcting in unfamiliar situations? No. PROBLEM SOLVING - SCORE: 7-IND MEMORY: MEMORY - STEP 1: Does the patient need help to remember frequently encountered people, daily routines, and executing r equests? No. MEMORY - STEP 2: Does the patient have slight difficulty recognizing frequently encountered people, daily routines, or executing requests without the need for repetition or using self-initiated or environmental cues to remember? No. MEMORY - SCORE: 7-IND SIGNATURE PANEL: The following modified sections: Eating - Score, Grooming - Score, Bathing - Score, Dressing - Upper Body - Score, Dressing - Lower Body - Score, Toileting - Score, Bladder Management - Score, Bowel Man agement - Score, Transfers: Bed, Chair, Wheelchair - Score, Transfers: Toilet - Score, Transfers: Charlene wer - Score, Transfers: Tub - Score, Locomotion: Walk - Score, Locomotion: Wheelchair - Score, Compre hension - Score, Expression - Score, Social Interaction - Score, Problem Solving - Score, Memory - Sc ore were [electronically] signed by Bri Walton RN on TueOct 26 2017 02:22:04 T-0500 ([facility] Time)
[2017-10-26] MEDS: CARVEDILOL 25 MG TAB PO SCH ×2 (05:16→17:05)
[2017-10-26 06:37] LABS: Absolute Lymphocytes (CBC) 0.6 K/uL (0.7-4.9); Absolute Monocytes 0.6 K/uL (0.1-1.3); Absolute Neutrophil 2.8 K/uL (1.8-8.0); Basophils % 0.8 % (0-1.3); Eosinophils % 5.7 % (0-4.4); Hematocrit 20.9 % (36.0-45.0); Lymphocytes % 14.1 % (15.3-44.8); MCH 28.9 pg (27.0-35.0); MCV 86.5 fL (80-100); Monocytes % 14.4 % (3.3-12.3); RBC Red Blood Cell Count 2.42 M/uL (3.86-4.86)
[2017-10-26 07:07] LABS: Magnesium 1.8 mg/dL (1.8-2.5); Potassium 4.6 mEq/L (3.6-5.0); Prealbumin 9.8 mg/dl (18-38)
[2017-10-26] MEDS ORDERED: UMECLIDINIUM BRM IH SCH (08:00)
[2017-10-26] MEDS: ENOXAPARIN 30 MG/0.3 ML SQ SCH (08:00)
[2017-10-26] MEDS: ENSURE ENLIVE 237 ML CAN PO SCH ×2 (08:00→20:03)
[2017-10-26] MEDS ORDERED: [UNRECOGNIZED DRUG - OTHER] IH SCH (08:00)
[2017-10-26] MEDS: ASPIRIN 81 MG CHEWABLE TABLET PO SCH (09:00)
[2017-10-26] MEDS: HYDRALAZINE HCL 25 MG TABLET PO SCH ×3 (09:00→21:11)
[2017-10-26] MEDS: FE SULF/FA/VIT B COMP & C TAB PO SCH (09:00)
[2017-10-26] MEDS: CALCITROL 0.25 MCG CAP PO SCH (09:00)
[2017-10-26] MEDS: TRAMADOL HCL 50 MG TAB PO PRN ×2 (09:00→22:11)
[2017-10-26] MEDS: VITAMIN D 5,000 UNIT CAP PO SCH (09:00)
[2017-10-26] MEDS: GABAPENTIN 100 MG CAP PO SCH ×2 (09:00→20:02)
[2017-10-26] MEDS: MAGNESIUM OXIDE 400 MG TAB PO SCH (09:01)
[2017-10-26] MEDS: DOCUSATE NA 100 MG CAP PO SCH ×2 (09:01→20:00)
[2017-10-26] MEDS: ISOSORBIDE MONO SR 30 MG TAB PO SCH ×2 (09:01→20:02)
[2017-10-26] MEDS: CETIRIZINE HCL 5 MG TABLET PO SCH (09:01)
[2017-10-26] MEDS: FERROUS SULFATE 325 MG TAB PO SCH (09:01)
[2017-10-26] MEDS: PANTOPRAZOLE 40MG TABLET PO SCH (09:01)
[2017-10-26] MEDS ORDERED: EPOETIN ALFA 10,000 UNIT/ML VIAL SQ SCH (13:30)
[2017-10-26 13:54] VITALS: BMI 19.1
[2017-10-26] MEDS ORDERED: NA CHLORIDE 0.9% 250 ML ONE (14:30)
--- NOTE | 2017-10-26 17:00 | FAST ---
ENCOUNTER DATE AND TIME: 10/26/2017 08:00 (CDT) NAME CHARIS MCKEON DATE OF : 1955 DATE OF ADMISSION: 10/25/2017 14:59 (CDT) PHONE: AGE: 62 N# [id number] GENDER: Female ENCOUNTER PHYSICIAN: Dr. Marino Villar M.D. ADMISSION DIAGNOSIS: - Orthopaedic Disorders 08 - Other Orthopaedic (08.9) Bilateral Tibial Plateau Fracture. EATING: Activity did not occur on this shift EATING - SCORE: 0-UNK GROOMING: Activity did not occur on this shift GROOMING - SCORE: 0-UNK BATHING: Activity did not occur on this shift BATHING - SCORE: 0-UNK DRESSING - UPPER BODY: Activity did not occur on this shift Patient is not dressing in public clothing ARTICLES SCORE Total number of steps: 0 DRESSING - UPPER BODY - SCORE: 0-UNK DRESSING - LOWER BODY: Activity did not occur on this shift Patient is not dressing in public clothing ARTICLES SCORE Total number of steps: 0 DRESSING - LOWER BODY - SCORE: 0-UNK TOILETING: Activity did not occur on this shift TOILETING - SCORE: 0-UNK BLADDER MANAGEMENT: Activity did not occur on this shift BLADDER MANAGEMENT - SCORE: 7-IND BOWEL MANAGEMENT: Activity did not occur on this shift BOWEL MANAGEMENT - SCORE: 7-IND TRANSFERS: BED, CHAIR, WHEELCHAIR: Patient requires more than one helper and/or the use of a mechanical lift is utilized TRANSFERS: BED, CHAIR, WHEELCHAIR - SCORE: 1-DEP TRANSFERS: TOILET: Patient requires more than one helper and/or the use of a mechanical lift is utilized TRANSFERS: TOILET - SCORE: 1-DEP TRANSFERS: SHOWER: Activity did not occur on this shift TRANSFERS: SHOWER - SCORE: 0-UNK TRANSFERS: TUB: Activity did not occur on this shift TRANSFERS: TUB - SCORE: 0-UNK LOCOMOTION: WALK: Activity did not occur on this shift LOCOMOTION: WALK - SCORE: 0-UNK LOCOMOTION: WHEELCHAIR: Patient propels wheelchair less than 50 ft LOCOMOTION: WHEELCHAIR - SCORE: 1-DEP LOCOMOTION: STAIRS: Activity did not occur on this shift LOCOMOTION: STAIRS - SCORE: 0-UNK COMPREHENSION: COMPREHENSION - SCORE: 0-UNK EXPRESSION EXPRESSION - SCORE: 0-UNK SOCIAL INTERACTION: SOCIAL INTERACTION - SCORE: 0-UNK PROBLEM SOLVING: PROBLEM SOLVING - SCORE: 0-UNK MEMORY: MEMORY - SCORE: 0-UNK SIGNATURE PANEL: The following modified sections: Transfers: Bed, Chair, Wheelchair - Score, Transfers: Toilet - Score , Locomotion: Walk - Score, Locomotion: Wheelchair - Score, Locomotion: Stairs - Score were [electron ically] signed by Dereje Fields PT on TueOct 26 2017 16:00:18 GMT-0500 (Central Daylight Time)
--- NOTE | 2017-10-26 17:23 | FAST ---
SHIFT START DATE/TIME: 10/26/2017 07:00 (CDT) SHIFT END DATE/TIME: 10/26/2017 19:00 (CDT) NAME CHARIS MCKEON DATE OF : 1955 DATE OF ADMISSION: 10/25/2017 14:59 (CDT) PHONE: AGE: 62 N# [id number] GENDER: Female ENCOUNTER PHYSICIAN: Dr. Marino Villar M.D. ADMISSION DIAGNOSIS: - Orthopaedic Disorders 08 - Other Orthopaedic (08.9) Bilateral Tibial Plateau Fracture. EATING: EATING - STEP 1: Does the patient require assistance when eating? Yes. EATING - STEP 2: Does the patient require the assistance of a helper? Yes. EATING - STEP 3: Does the patient perform half or more of the eating tasks? Yes. EATING - STEP 4: Does the patient need only supervision, cuing, coaxing OR help to apply an orthosis OR help to cut fo od, open containers, pour liquids, or butter bread? Yes. EATING - SCORE: 5-SUP GROOMING: Activity did not occur on this shift GROOMING - SCORE: 0-UNK BATHING: Activity did not occur on this shift BATHING - SCORE: 0-UNK DRESSING - UPPER BODY: Activity did not occur on this shift ARTICLES SCORE Total number of steps: 0 DRESSING - UPPER BODY - SCORE: 0-UNK DRESSING - LOWER BODY: Activity did not occur on this shift ARTICLES SCORE Total number of steps: 0 DRESSING - LOWER BODY - SCORE: 0-UNK TOILETING: TOILETING - STEP 1: Does the patient require assistance with toileting? Yes. TOILETING - STEP 2: Does the patient require the assistance of a helper? Yes. TOILETING - STEP 3: How much assistance does the patient require from the helper? Hands-on assistance from the helper TOILETING - STEP 4: Of the 3 tasks: 1) Adjusting clothing prior to use, 2) Cleansing of perineal area, 3) Adjusting clot toby after use; How many tasks does the patient perform WITHOUT assistance of the helper? No tasks; h oliver performs all three tasks TOILETING - SCORE: 1-DEP BLADDER MANAGEMENT: BLADDER MANAGEMENT - STEP 1: Does the patient control the bladder completely and intentionally without equipment or devices or med ications, and is always continent? No. BLADDER MANAGEMENT - STEP 2: Does the patient require the assistance of a helper? Yes. BLADDER MANAGEMENT - STEP 3: How much assistance does the patient require from the helper? Patient requires contact assistance fro m the helper BLADDER MANAGEMENT - STEP 4: How much contact assistance does the patient require from the helper? Patient requires maximal assist ance, and only performs 25% to 49% of bladder management tasks BLADDER MANAGEMENT - SCORE: 2-MAX BLADDER MANAGEMENT - FREQUENCY OF ACCIDENTS: BLADDER MANAGEMENT(FA) - STEP 1: How many accidents has the patient had during the current shift? 0 BOWEL MANAGEMENT: Activity did not occur on this shift BOWEL MANAGEMENT - SCORE: 7-IND BOWEL MANAGEMENT - FREQUENCY OF ACCIDENTS: BOWEL MANAGEMENT(FA) - STEP 1: How many accidents has the patient had during the current shift? 0 TRANSFERS: BED, CHAIR, WHEELCHAIR: TRANSFERS: BED, CHAIR, WHEELCHAIR - STEP 1: Does the patient require assistance with bed, chair, or wheelchair transfers? Yes. TRANSFERS: BED, CHAIR, WHEELCHAIR - STEP 2: Does the patient require the assistance of a helper? Yes. TRANSFERS: BED, CHAIR, WHEELCHAIR - STEP 3: How much assistance does the patient require from the helper? Lifting of the legs TRANSFERS: BED, CHAIR, WHEELCHAIR - STEP 4: How many legs does the patient require the helper to lift? both legs TRANSFERS: BED, CHAIR, WHEELCHAIR - SCORE: 3-MOD TRANSFERS: TOILET: TRANSFERS: TOILET - STEP 1: Does the patient require assistance with toilet transfers? Yes. TRANSFERS: TOILET - STEP 2: Does the patient require the assistance of a helper? Yes. TRANSFERS: TOILET - STEP 3: How much assistance does the patient require from the helper? Patient performs half or more of the tr ansferring tasks TRANSFERS: TOILET - STEP 4: Does the patient need only incidental help such as contact guard or steadying during toilet transfer? No. Patient needs more than incidental help TRANSFERS: TOILET - SCORE: 3-MOD TRANSFERS: SHOWER: Activity did not occur on this shift TRANSFERS: SHOWER - SCORE: 0-UNK TRANSFERS: TUB: Activity did not occur on this shift TRANSFERS: TUB - SCORE: 0-UNK LOCOMOTION: WALK: Activity did not occur on this shift LOCOMOTION: WALK - SCORE: 0-UNK LOCOMOTION: WHEELCHAIR: Activity did not occur on this shift LOCOMOTION: WHEELCHAIR - SCORE: 0-UNK COMPREHENSION: COMPREHENSION: TYPE: Both COMPREHENSION - STEP 1: Does the patient require help to understand complex and abstract ideas (such as current events, finan pari, discharge planning, medical issues, relationships, etc)? No. COMPREHENSION - STEP 2: Does the patient need extra time, require an assistive device (such as glasses, hearing aids, or an a ugmentative communication system), OR does s/he have mild difficulty expressing complex and abstract ideas (including mild dysarthria or mild word-finding problems)? Yes. COMPREHENSION - SCORE: 6-DANIEL EXPRESSION EXPRESSION: TYPE: Both EXPRESSION - STEP 1: Does the patient require help expressing complex and abstract ideas (such as current events, finances , discharge planning, medical issues, relationships, etc)? No. EXPRESSION - STEP 2: Does the patient need extra time, require an assistive device (such as augmentive communication syste m or a communication board), OR does s/he have mild difficulty expressing complex and abstract ideas (including mild dysarthria or mild word-find problems)? Yes. EXPRESSION - SCORE: 6-DANIEL SOCIAL INTERACTION: SOCIAL INTERACTION - STEP 1: Does the patient require a helper to interact with others in social and therapeutic situations? No. SOCIAL INTERACTION - STEP 2: Does the patient need extra time in social situations, OR does s/he interact with staff, other patien ts, and family members ONLY in structured environments, OR does s/he require medication for social in teraction? Yes, patient needs extra time SOCIAL INTERACTION - SCORE: 6-DANIEL PROBLEM SOLVING: PROBLEM SOLVING - STEP 1: Does the patient need help to solve complex problems such as managing a checking account or confronti ng interpersonal problems? Yes. PROBLEM SOLVING - STEP 2: Does the patient solve basic routine problems half or more of the time? Yes. PROBLEM SOLVING - STEP 3: How often does the patient need help to solve basic routine problems? Less than 10% of the time PROBLEM SOLVING - SCORE: 5-SUP MEMORY: MEMORY - STEP 1: Does the patient need help to remember frequently encountered people, daily routines, and executing r equests? No. MEMORY - STEP 2: Does the patient have slight difficulty recognizing frequently encountered people, daily routines, or executing requests without the need for repetition or using self-initiated or environmental cues to remember? Yes. MEMORY - SCORE: 6-DANIEL SIGNATURE PANEL: The following modified sections: Eating - Score, Grooming - Score, Bathing - Score, Dressing - Upper Body - Score, Dressing - Lower Body - Score, Toileting - Score, Bladder Management - Score, Bladder M anagement - Comments:, Bowel Management - Score, Transfers: Bed, Chair, Wheelchair - Score, Transfers : Toilet - Score, Transfers: Shower - Score, Transfers: Tub - Score, Locomotion: Walk - Score, Locomo tion: Wheelchair - Score, Comprehension - Score, Expression - Score, Social Interaction - Score, Prob js Solving - Score, Memory - Score were [electronically] signed by Loida Mauricio C.N.A. on TueOct 142017 16:23:11 GMT-0500 (Central Daylight Time)
--- NOTE | 2017-10-26 17:34 | PN ---
Date of Progress Note: 10/26/2017 Subjective: The patient is doing well. She is undergoing physical therapy and is able to tolerate t hat quite well. Objective: Vital Signs: Have been reviewed. Temperature of 96.9, pulse rate of 59, respiratory rat e of 16, blood pressure 162/79. General: She appears in no acute distress. Extremities: Bilateral lower extremities braces noted. Abdomen: Soft and nontender, and she reports that her constipation is better. Laboratory Data: At this time showing creatinine improving to 2.3, BUN of 55, and CBC showing drop i n hemoglobin to 7, hematocrit 20.9. Urinalysis done yesterday showed mild bacteria, but otherwise un remarkable. Current Medications: Include carvedilol 25 mg b.i.d., vitamin D, Zyrtec, aspirin, enemas and stool s ofteners, Ensure, gabapentin, hydralazine 100 mg 3 times a day, isosorbide 30 mg b.i.d., mirtazapine, pantoprazole, trazodone, and tramadol. Impression: 1.Acute on chronic renal insufficiency, currently with improving renal function with IV fluids. The patient does have some dependent edema, but otherwise she is very volume sensitive and would need to avoid hypotension and diuresis at this time. 2.Drop in hemoglobin. The patient is scheduled to get blood transfusion. We will increase the unit s from 1 to 2 to improve her hemoglobin further and will possibly need Epogen also to maintain her he moglobin levels. She has received IV iron while she was in the hospital. We will continue to monito r her closely. 3.Hypertension, currently stable. No hypotensive episodes were noted. 4.Congestive heart failure, currently volume status seems to be stable. 5.Bilateral tibial fractures, status post surgery on her left tibia, right one being managed conserv atively. 6.History of anxiety, currently stable. 7.Acute pain. Advised to use tramadol sparingly secondary to dependence previously. Plan: Overall the patient is doing okay. I agree with blood transfusion, but we will increase the b lood transfusion rate to 2 units of PRBCs and monitor her hemoglobin closely. We will go ahead and o rder Epogen to maintain her hemoglobin levels while she remains hospitalized and to prevent further d rops in her hemoglobin. Continue all other medications and plan of care and continue physical therap y. VV/MODL Voice ID: [id number] Report ID: [id number]
[2017-10-26] MEDS ORDERED: FUROSEMIDE 40 MG/4 ML VIAL IV ONE (18:00)
--- NOTE | 2017-10-26 19:05 | R.PN ---
ENCOUNTER DATE AND TIME: 10/26/2017 18:01 (CDT) NAME CHARIS MCKEON DATE OF : 1955 DATE OF ADMISSION: 10/25/2017 14:59 (CDT) Bilateral Tibial Plateau FractureCHIEF COMPLAINT: Tibial plateau fractures bilaterally SUBJECTIVE: Pt denied any Shortness of Breath. Pt denied any depression. None weight bearing on both lower extremities. Therapeutic exercises performed with lower and upper e xtremities. VITAL SIGNS Temperature: 98.6 F SBP/DBP: 143/70 Pulse: 76 Resp: 14 MEDICATION ALLERGIES: Clindamycin Sulfamethoxazole Trimethoprim Clonidine Losartan ENVIRONMENTAL ALLERGIES: None Known - Substance Allergies None Known - Other Allergies None Known NURSING: - Shower allowing shower - Skin care per protocol PRECAUTIONS: - Weight Bearing Precaution NWB both LE - Fall Precaution Bed and chair alarm ACTIVITIES OOB only with supervision THERAPIES: - Occupational Therapy Evaluate and Treat. - Physical Therapy Evaluate and Treat. PHYSICAL EXAM - Gen Alert and awake Lying in bed No apparent distress Oriented to: person, time, and place - Skin No skin breakdown. Normacephalic - Eyes No abnormalities - ENMT No abnormalities - Neck No abnormalities - CVS RRR - Chest Clear - Abd Soft - GI Non distended Deferred - No abnormalities - Ext No significant edema - MSK Unremarkable - Neuro No focal deficits - Psych No abnormalities ASSESSMENT: Pt. is a 62 yo Right-handed white female.On 10/17/2017 she was admitted to [facility] with diagnosis Bilateral Tibial Plateau Fracture.Her impairment category is Orthopaedic Disord ers 08 - Other Orthopaedic (08.9).Pre-morbidly, Pt. was independent/mod-I in Sphincter Control, Castañeda sfers Control, Communication, Social Cognition, Self-Care, and Locomotion; and she had good Sphincter Control.Currently, she has deficits of Endurance, Safety Awareness, Transfers Control, Balance, Self -Care, and Locomotion.Pt. is now referred to [facility] for acute in-patient r ehabilitation in order to maximize patient's functional independence in activities of daily living, s trength, ROM, and mobility.- Rehab Goal Patient has realistic goal of being discharged at assistance level 6-Nestor to reside at Home with Fam ani/Relatives. MDM/PLAN: - Physical Therapy Decreased range of motion - to improve, our physical therapists will perform initial evaluation of p t's status upon admission and devise an individualized program for increasing patient's Range of [place] on. Gait dysfunction - to improve, our physical therapists will perform initial evaluation of pt's statu s upon admission and devise an individualized program for Gait Training, and Wheel Chair mobility Inability to transfer - to improve, our physical therapists will perform initial evaluation of pt's status upon admission and devise an individualized program for Bed mobility Need for home safety evaluation - to improve, our physical therapists will perform initial evaluatio n of pt's status upon admission and devise an individualized program for Home Evaluation Need in caregiver upon discharge - to improve, our physical therapists will perform initial evaluati on of pt's status upon admission and devise an individualized program for Caregiver Training New precaution - to improve, our physical therapists will perform initial evaluation of pt's status upon admission and devise an individualized program for Patient precaution education Edema - to improve, our physical therapists will perform initial evaluation of pt's status upon admis donna and devise an individualized program for Elevation Training, and Lymphedema Therapy Poor balance - to improve, our physical therapists will perform initial evaluation of pt's status up on admission and devise an individualized program for Balance Training Poor endurance - to improve, our physical therapists will perform initial evaluation of pt's status upon admission and devise an individualized program for Endurance Training Weakness - to improve, our physical therapists will perform initial evaluation of pt's status upon a dmission and devise an individualized program for Aquatic Therapy, Neuromuscular Reeducation, and Str engthening Achieving independence - to improve, our physical therapists will perform initial evaluation of pt's status upon admission and devise an individualized program for Community Reintegration Activities - Diet Type Continue Regular - Diet - Liquid Texture Continue Regular - Tube Feed Continue N/A - Weight Bearing Precaution NWB both LE - Fall Precaution Bed and chair alarm - Skin care per protocol - Diet - Solid Texture Continue Regular - Shower allowing shower - Occupational Therapy ADL deficits - to improve, our occupation therapists will perform initial evaluation of pt's status upon admission and devise an individualized program for Bathing, Bed mobility, Community Reintegratio n, Cooking, Dressing, Eating, Fine Motor Skills, Grooming, Homemaking, Kitchen Mobility, Laundry, Pat ient Education, Safety Awareness, Splinting - Positioning, Transfers(Toilet, Tub, Shower), and Wheel Chair Management Need for palliative care specialist - to improve, our occupation therapists will perform initial evaluation of pt's status upon admission and devise an individualized program for Caregiver Training Weakness - to improve, our occupation therapists will perform initial evaluation of pt's status upon admission and devise an individualized program for Aquatic Therapy, Balance, Endurance, UE ROM, and UE strengthening FUNCTIONAL STATUS: UPDATED AT WEEKLY TEAM CONFERENCE - Bladder Same Bladder control device used: catheter Same accident frequency: 7-Ind - No accidents in the past 7 days - Bowel Same accident frequency: 7-Ind - No accidents in the past 7 days - Walking Same score based on distance walked: 0(N/A) - Wheelchair Same score based on distance traveled: 0(N/A) FUNCTIONAL STATUS: - Self-Care A. Eating sup B. Grooming sup C. Bathing Dep D. Dressing - Upper Dep E. Dressing - Lower Dep F. Toileting Dep - Sphincter Control G: Bladder control Dep H: Bowel control Nestor - Transfers Control I. Bed/Chair/Wheelchair Dep J. Toilet Dep K. Tub/Shower ADNO - Locomotion L. Walk/Wheelchair (C) Dep L. Walk/Wheelchair (W) ADNO M. Stairs ADNO - Communication N. Comprehension (B) Nestor O. Expression (B) Nestor - Social Cognition P. Social Interaction Nestor Q. Problem Solving Nestor R. Memory Nestor - Endurance Poor - Balance Poor - Safety Awareness Poor CURRENT FUNC. DEFICITS: Endurance, Safety Awareness, Transfers Control, Balance, Self-Care, and Locomotion SIGNATURE PANEL: (CDT)
--- NOTE | 2017-10-26 19:11 | FAST ---
ENCOUNTER DATE AND TIME: 10/26/2017 08:00 (CDT) NAME CHARIS MCKEON DATE OF : 1955 DATE OF ADMISSION: 10/25/2017 14:59 (CDT) PHONE: AGE: 62 N# [id number] GENDER: Female ENCOUNTER PHYSICIAN: Dr. Marino Villar M.D. ADMISSION DIAGNOSIS: - Orthopaedic Disorders 08 - Other Orthopaedic (08.9) Bilateral Tibial Plateau Fracture. EATING: Activity did not occur on this shift EATING - SCORE: 0-UNK GROOMING: Activity did not occur on this shift GROOMING - SCORE: 0-UNK BATHING: Activity did not occur on this shift BATHING - SCORE: 0-UNK DRESSING - UPPER BODY: Activity did not occur on this shift Patient is not dressing in public clothing ARTICLES SCORE Total number of steps: 0 DRESSING - UPPER BODY - SCORE: 0-UNK DRESSING - LOWER BODY: Activity did not occur on this shift Patient is not dressing in public clothing ARTICLES SCORE Total number of steps: 0 DRESSING - LOWER BODY - SCORE: 0-UNK TOILETING: Activity did not occur on this shift TOILETING - SCORE: 0-UNK BLADDER MANAGEMENT: Activity did not occur on this shift BLADDER MANAGEMENT - SCORE: 7-IND BOWEL MANAGEMENT: Activity did not occur on this shift BOWEL MANAGEMENT - SCORE: 7-IND TRANSFERS: BED, CHAIR, WHEELCHAIR: Activity did not occur on this shift TRANSFERS: BED, CHAIR, WHEELCHAIR - SCORE: 0-UNK TRANSFERS: TOILET: Activity did not occur on this shift TRANSFERS: TOILET - SCORE: 0-UNK TRANSFERS: SHOWER: Activity did not occur on this shift TRANSFERS: SHOWER - SCORE: 0-UNK TRANSFERS: TUB: Activity did not occur on this shift TRANSFERS: TUB - SCORE: 0-UNK LOCOMOTION: WALK: Activity did not occur on this shift LOCOMOTION: WALK - SCORE: 0-UNK LOCOMOTION: WHEELCHAIR: Activity did not occur on this shift LOCOMOTION: WHEELCHAIR - SCORE: 0-UNK LOCOMOTION: STAIRS: Activity did not occur on this shift LOCOMOTION: STAIRS - SCORE: 0-UNK COMPREHENSION: COMPREHENSION - STEP 1: Does the patient require help to understand complex and abstract ideas (such as current events, finan pari, discharge planning, medical issues, relationships, etc)? No. COMPREHENSION - STEP 2: Does the patient need extra time, require an assistive device (such as glasses, hearing aids, or an a ugmentative communication system), OR does s/he have mild difficulty expressing complex and abstract ideas (including mild dysarthria or mild word-finding problems)? Yes. COMPREHENSION - SCORE: 6-DANIEL EXPRESSION EXPRESSION - STEP 1: Does the patient require help expressing complex and abstract ideas (such as current events, finances , discharge planning, medical issues, relationships, etc)? No. EXPRESSION - STEP 2: Does the patient need extra time, require an assistive device (such as augmentive communication syste m or a communication board), OR does s/he have mild difficulty expressing complex and abstract ideas (including mild dysarthria or mild word-find problems)? Yes. EXPRESSION - SCORE: 6-DANIEL SOCIAL INTERACTION: SOCIAL INTERACTION - STEP 1: Does the patient require a helper to interact with others in social and therapeutic situations? No. SOCIAL INTERACTION - STEP 2: Does the patient need extra time in social situations, OR does s/he interact with staff, other patien ts, and family members ONLY in structured environments, OR does s/he require medication for social in teraction? No. SOCIAL INTERACTION - SCORE: 7-IND PROBLEM SOLVING: PROBLEM SOLVING - STEP 1: Does the patient need help to solve complex problems such as managing a checking account or confronti ng interpersonal problems? Yes. PROBLEM SOLVING - STEP 2: Does the patient solve basic routine problems half or more of the time? Yes. PROBLEM SOLVING - STEP 3: How often does the patient need help to solve basic routine problems? 25%-49% of the time PROBLEM SOLVING - SCORE: 3-MOD MEMORY: MEMORY - STEP 1: Does the patient need help to remember frequently encountered people, daily routines, and executing r equests? Yes. MEMORY - STEP 2: How often does the patient need help to remember frequently encountered people, daily routines, and e xecuting requests? 25% - 49% of the time MEMORY - SCORE: 3-MOD SIGNATURE PANEL: The following modified sections: Comprehension - Score, Expression - Score, Social Interaction - Scor e, Problem Solving - Score, Memory - Score were [electronically] signed by EDGARD Nino on Tue 18:11:37 T-0500 (Central Daylight Time)
[2017-10-26] MEDS: TRAZODONE 150 MG TAB PO SCH (21:11)
[2017-10-26] MEDS: MIRTAZAPINE 15 MG TAB PO SCH (21:11)
--- NOTE | 2017-10-27 03:19 | FAST ---
SHIFT START DATE/TIME: 10/26/2017 19:00 (CDT) SHIFT END DATE/TIME: 10/27/2017 07:00 (CDT) NAME CHARIS MCKEON DATE OF : 1955 DATE OF ADMISSION: 10/25/2017 14:59 (CDT) PHONE: AGE: 62 N# [id number] GENDER: Female ENCOUNTER PHYSICIAN: Dr. Marino Villar M.D. ADMISSION DIAGNOSIS: - Orthopaedic Disorders 08 - Other Orthopaedic (08.9) Bilateral Tibial Plateau Fracture. EATING: Activity did not occur on this shift EATING - SCORE: 0-UNK GROOMING: Activity did not occur on this shift GROOMING - SCORE: 0-UNK BATHING: Activity did not occur on this shift BATHING - SCORE: 0-UNK DRESSING - UPPER BODY: Patient is not dressing in public clothing ARTICLES SCORE Total number of steps: 0 DRESSING - UPPER BODY - SCORE: 0-UNK DRESSING - LOWER BODY: Patient is not dressing in public clothing ARTICLES SCORE Total number of steps: 0 DRESSING - LOWER BODY - SCORE: 0-UNK TOILETING: TOILETING - STEP 1: Does the patient require assistance with toileting? Yes. TOILETING - STEP 2: Does the patient require the assistance of a helper? Yes. TOILETING - STEP 3: How much assistance does the patient require from the helper? Hands-on assistance from the helper TOILETING - STEP 4: Of the 3 tasks: 1) Adjusting clothing prior to use, 2) Cleansing of perineal area, 3) Adjusting clot toby after use; How many tasks does the patient perform WITHOUT assistance of the helper? No tasks; h elper performs all three tasks TOILETING - SCORE: 1-DEP BLADDER MANAGEMENT: [place] cares for leyva catheter including emptying drainage bag. BLADDER MANAGEMENT - SCORE: 1-DEP BOWEL MANAGEMENT: Activity did not occur on this shift BOWEL MANAGEMENT - SCORE: 7-IND TRANSFERS: BED, CHAIR, WHEELCHAIR: Activity did not occur on this shift TRANSFERS: BED, CHAIR, WHEELCHAIR - SCORE: 0-UNK TRANSFERS: TOILET: Activity did not occur on this shift TRANSFERS: TOILET - SCORE: 0-UNK TRANSFERS: SHOWER: Activity did not occur on this shift TRANSFERS: SHOWER - SCORE: 0-UNK TRANSFERS: TUB: Activity did not occur on this shift TRANSFERS: TUB - SCORE: 0-UNK LOCOMOTION: WALK: Activity did not occur on this shift LOCOMOTION: WALK - SCORE: 0-UNK LOCOMOTION: WHEELCHAIR: Activity did not occur on this shift LOCOMOTION: WHEELCHAIR - SCORE: 0-UNK COMPREHENSION: COMPREHENSION: TYPE: Both COMPREHENSION - STEP 1: Does the patient require help to understand complex and abstract ideas (such as current events, finan pari, discharge planning, medical issues, relationships, etc)? No. COMPREHENSION - STEP 2: Does the patient need extra time, require an assistive device (such as glasses, hearing aids, or an a ugmentative communication system), OR does s/he have mild difficulty expressing complex and abstract ideas (including mild dysarthria or mild word-finding problems)? Yes. COMPREHENSION - SCORE: 6-DANIEL EXPRESSION EXPRESSION: TYPE: Both EXPRESSION - STEP 1: Does the patient require help expressing complex and abstract ideas (such as current events, finances , discharge planning, medical issues, relationships, etc)? No. EXPRESSION - STEP 2: Does the patient need extra time, require an assistive device (such as augmentive communication syste m or a communication board), OR does s/he have mild difficulty expressing complex and abstract ideas (including mild dysarthria or mild word-find problems)? No. EXPRESSION - SCORE: 7-IND SOCIAL INTERACTION: SOCIAL INTERACTION - STEP 1: Does the patient require a helper to interact with others in social and therapeutic situations? No. SOCIAL INTERACTION - STEP 2: Does the patient need extra time in social situations, OR does s/he interact with staff, other patien ts, and family members ONLY in structured environments, OR does s/he require medication for social in teraction? Yes, patient requires medication for social interaction SOCIAL INTERACTION - SCORE: 6-DANIEL PROBLEM SOLVING: PROBLEM SOLVING - STEP 1: Does the patient need help to solve complex problems such as managing a checking account or confronti ng interpersonal problems? No. PROBLEM SOLVING - STEP 2: Does the patient require extra time to make decisions or solve problems, OR does s/he have slight dif ficulty reading, initiating, or self-correcting in unfamiliar situations? No. PROBLEM SOLVING - SCORE: 7-IND MEMORY: MEMORY - STEP 1: Does the patient need help to remember frequently encountered people, daily routines, and executing r equests? No. MEMORY - STEP 2: Does the patient have slight difficulty recognizing frequently encountered people, daily routines, or executing requests without the need for repetition or using self-initiated or environmental cues to remember? No. MEMORY - SCORE: 7-IND
[2017-10-27] MEDS ORDERED: NA CHLORIDE 0.9% 0 ML ONE (03:23)
[2017-10-27] MEDS ORDERED: AMLODIPINE 5 MG TAB PO ONE (03:48)
[2017-10-27] MEDS: CARVEDILOL 25 MG TAB PO SCH ×2 (05:04→17:04)
[2017-10-27 06:41] LABS: Absolute Lymphocytes (CBC) 0.7 K/uL (0.7-4.9); Absolute Monocytes 0.7 K/uL (0.1-1.3); Basophils % 0.8 % (0-1.3); Eosinophils % 6.2 % (0-4.4); Hematocrit 26.7 % (36.0-45.0); Lymphocytes % 14.6 % (15.3-44.8); MCH 28.7 pg (27.0-35.0); MCV 86.4 fL (80-100); MPV 7.4 fL (7.6-11.3); Monocytes % 14.6 % (3.3-12.3); RBC Red Blood Cell Count 3.09 M/uL (3.86-4.86)
[2017-10-27 07:08] LABS: Potassium 4.6 mEq/L (3.6-5.0)
[2017-10-27] MEDS: ENOXAPARIN 30 MG/0.3 ML SQ SCH (08:00)
[2017-10-27] MEDS: ENSURE ENLIVE 237 ML CAN PO SCH ×3 (08:00→19:59)
[2017-10-27] MEDS: LACTOBACILLUS/ACIDOPHILUS TAB PO SCH (08:31)
[2017-10-27] MEDS: VITAMIN D 5,000 UNIT CAP PO SCH (08:31)
[2017-10-27] MEDS: GABAPENTIN 100 MG CAP PO SCH ×2 (08:31→19:57)
[2017-10-27] MEDS: CETIRIZINE HCL 5 MG TABLET PO SCH (08:31)
[2017-10-27] MEDS: FE SULF/FA/VIT B COMP & C TAB PO SCH (08:31)
[2017-10-27] MEDS: ASPIRIN 81 MG CHEWABLE TABLET PO SCH (08:31)
[2017-10-27] MEDS: FERROUS SULFATE 325 MG TAB PO SCH (08:31)
[2017-10-27] MEDS: TRAMADOL HCL 50 MG TAB PO PRN ×2 (08:31→13:19)
[2017-10-27] MEDS: DOCUSATE NA 100 MG CAP PO SCH ×2 (08:31→19:56)
[2017-10-27] MEDS: PANTOPRAZOLE 40MG TABLET PO SCH (08:31)
[2017-10-27] MEDS: ISOSORBIDE MONO SR 30 MG TAB PO SCH ×2 (08:31→19:56)
[2017-10-27] MEDS: MAGNESIUM OXIDE 400 MG TAB PO SCH (08:32)
[2017-10-27] MEDS: CALCITROL 0.25 MCG CAP PO SCH (08:32)
[2017-10-27] MEDS: HYDRALAZINE HCL 25 MG TABLET PO SCH ×3 (08:32→21:14)
[2017-10-27] MEDS: AMLODIPINE 10 MG TAB PO SCH (08:37)
--- NOTE | 2017-10-27 16:31 | FAST ---
SHIFT START DATE/TIME: 10/27/2017 07:00 (CDT) SHIFT END DATE/TIME: 10/27/2017 19:00 (CDT) NAME CHARIS MCKEON DATE OF : 1955 DATE OF ADMISSION: 10/25/2017 14:59 (CDT) PHONE: AGE: 62 N# [id number] GENDER: Female ENCOUNTER PHYSICIAN: Dr. Marino Villar M.D. ADMISSION DIAGNOSIS: - Orthopaedic Disorders 08 - Other Orthopaedic (08.9) Bilateral Tibial Plateau Fracture. EATING: EATING - STEP 1: Does the patient require assistance when eating? Yes. EATING - STEP 2: Does the patient require the assistance of a helper? Yes. EATING - STEP 3: Does the patient perform half or more of the eating tasks? Yes. EATING - STEP 4: Does the patient need only supervision, cuing, coaxing OR help to apply an orthosis OR help to cut fo od, open containers, pour liquids, or butter bread? Yes. EATING - SCORE: 5-SUP GROOMING: Oral care Wash, rinse, and dry face Wash, rinse, and dry hands GROOMING - STEP 1: Does the patient require assistance when grooming? Yes. GROOMING - STEP 2: Does the patient require the assistance of a helper? No. The patient only requires an assistive devic e, OR takes more than reasonable time to groom, OR there is a concern for safety as the patient groom s GROOMING - SCORE: 6-DANIEL BATHING: Activity did not occur on this shift BATHING - SCORE: 0-UNK DRESSING - UPPER BODY: Activity did not occur on this shift ARTICLES SCORE Total number of steps: 0 DRESSING - UPPER BODY - SCORE: 0-UNK DRESSING - LOWER BODY: Activity did not occur on this shift ARTICLES SCORE Total number of steps: 0 DRESSING - LOWER BODY - SCORE: 0-UNK TOILETING: Activity did not occur on this shift TOILETING - SCORE: 0-UNK BLADDER MANAGEMENT: [place] cares for leyva catheter including emptying drainage bag. BLADDER MANAGEMENT - SCORE: 1-DEP BLADDER MANAGEMENT - FREQUENCY OF ACCIDENTS: BLADDER MANAGEMENT(FA) - STEP 1: How many accidents has the patient had during the current shift? 0 BOWEL MANAGEMENT: Activity did not occur on this shift BOWEL MANAGEMENT - SCORE: 7-IND BOWEL MANAGEMENT - FREQUENCY OF ACCIDENTS: BOWEL MANAGEMENT(FA) - STEP 1: How many accidents has the patient had during the current shift? 0 TRANSFERS: BED, CHAIR, WHEELCHAIR: Patient requires more than one helper and/or the use of a mechanical lift is utilized TRANSFERS: BED, CHAIR, WHEELCHAIR - SCORE: 1-DEP TRANSFERS: TOILET: Activity did not occur on this shift TRANSFERS: TOILET - SCORE: 0-UNK TRANSFERS: SHOWER: Activity did not occur on this shift TRANSFERS: SHOWER - SCORE: 0-UNK TRANSFERS: TUB: Activity did not occur on this shift TRANSFERS: TUB - SCORE: 0-UNK LOCOMOTION: WALK: Activity did not occur on this shift LOCOMOTION: WALK - SCORE: 0-UNK LOCOMOTION: WHEELCHAIR: LOCOMOTION: WHEELCHAIR - STEP 1: Does the patient need help to go 150 feet in a wheelchair? Yes. LOCOMOTION: WHEELCHAIR - STEP 2: How much assistance does the patient need from the helper? More than incidental help LOCOMOTION: WHEELCHAIR - SCORE: 3-MOD COMPREHENSION: COMPREHENSION: TYPE: Both COMPREHENSION - STEP 1: Does the patient require help to understand complex and abstract ideas (such as current events, finan pari, discharge planning, medical issues, relationships, etc)? Yes. COMPREHENSION - STEP 2: Does the patient require help to understand questions or statements about basic needs or ideas (such as hunger, thirst, sleep, safety, daily schedule, room location, or discomfort) half or more of the t maxx? No. COMPREHENSION - STEP 3: How often does the patient need help to understand directions and conversation about basic needs? 10% - 24% of the time COMPREHENSION - SCORE: 4-MIN EXPRESSION EXPRESSION: TYPE: Both EXPRESSION - STEP 1: Does the patient require help expressing complex and abstract ideas (such as current events, finances , discharge planning, medical issues, relationships, etc)? Yes. EXPRESSION - STEP 2: Does the patient require help to express basic necessities or ideas (such as hunger, thirst, sleep, s afety, daily schedule, room location, or discomfort) half or more of the time? No. EXPRESSION - STEP 3: How often does the patient need help to express directions and conversation about basic needs? 10-24% of the time EXPRESSION - SCORE: 4-MIN SOCIAL INTERACTION: SOCIAL INTERACTION - STEP 1: Does the patient require a helper to interact with others in social and therapeutic situations? No. SOCIAL INTERACTION - STEP 2: Does the patient need extra time in social situations, OR does s/he interact with staff, other patien ts, and family members ONLY in structured environments, OR does s/he require medication for social in teraction? Yes, patient needs extra time SOCIAL INTERACTION - SCORE: 6-DANIEL PROBLEM SOLVING: PROBLEM SOLVING - STEP 1: Does the patient need help to solve complex problems such as managing a checking account or confronti ng interpersonal problems? Yes. PROBLEM SOLVING - STEP 2: Does the patient solve basic routine problems half or more of the time? Yes. PROBLEM SOLVING - STEP 3: How often does the patient need help to solve basic routine problems? 10%-24% of the time PROBLEM SOLVING - SCORE: 4-MIN MEMORY: MEMORY - STEP 1: Does the patient need help to remember frequently encountered people, daily routines, and executing r equests? Yes. MEMORY - STEP 2: How often does the patient need help to remember frequently encountered people, daily routines, and e xecuting requests? 10% - 24% of the time MEMORY - SCORE: 4-MIN SIGNATURE PANEL: The following modified sections: Eating - Score, Grooming - Score, Bathing - Score, Dressing - Upper Body - Score, Dressing - Lower Body - Score, Toileting - Score, Bladder Management - Score, Bowel Man agement - Score, Transfers: Bed, Chair, Wheelchair - Score, Transfers: Toilet - Score, Transfers: Charlene wer - Score, Transfers: Tub - Score, Locomotion: Walk - Score, Locomotion: Wheelchair - Score, Compre hension - Score, Expression - Score, Social Interaction - Score, Problem Solving - Score, Memory - Sc ore were [electronically] signed by Jc [email or web address] on TueOct 27 2017 15:32:00 GMT-0500 (Centra l Daylight Time)
--- NOTE | 2017-10-27 16:53 | FAST ---
ENCOUNTER DATE AND TIME: 10/27/2017 08:00 (CDT) NAME CHARIS MCKEON DATE OF : 1955 DATE OF ADMISSION: 10/25/2017 14:59 (CDT) PHONE: AGE: 62 N# [id number] GENDER: Female ENCOUNTER PHYSICIAN: Dr. Marino Villar M.D. ADMISSION DIAGNOSIS: - Orthopaedic Disorders 08 - Other Orthopaedic (08.9) Bilateral Tibial Plateau Fracture. EATING: Activity did not occur on this shift EATING - SCORE: 0-UNK GROOMING: Activity did not occur on this shift GROOMING - SCORE: 0-UNK BATHING: Activity did not occur on this shift BATHING - SCORE: 0-UNK DRESSING - UPPER BODY: Activity did not occur on this shift Patient is not dressing in public clothing ARTICLES SCORE Total number of steps: 0 DRESSING - UPPER BODY - SCORE: 0-UNK DRESSING - LOWER BODY: Activity did not occur on this shift Patient is not dressing in public clothing ARTICLES SCORE Total number of steps: 0 DRESSING - LOWER BODY - SCORE: 0-UNK TOILETING: Activity did not occur on this shift TOILETING - SCORE: 0-UNK BLADDER MANAGEMENT: Activity did not occur on this shift BLADDER MANAGEMENT - SCORE: 7-IND BOWEL MANAGEMENT: Activity did not occur on this shift BOWEL MANAGEMENT - SCORE: 7-IND TRANSFERS: BED, CHAIR, WHEELCHAIR: Patient requires more than one helper and/or the use of a mechanical lift is utilized TRANSFERS: BED, CHAIR, WHEELCHAIR - SCORE: 1-DEP TRANSFERS: TOILET: Activity did not occur on this shift TRANSFERS: TOILET - SCORE: 0-UNK TRANSFERS: SHOWER: Activity did not occur on this shift TRANSFERS: SHOWER - SCORE: 0-UNK TRANSFERS: TUB: Activity did not occur on this shift TRANSFERS: TUB - SCORE: 0-UNK LOCOMOTION: WALK: Activity did not occur on this shift LOCOMOTION: WALK - SCORE: 0-UNK LOCOMOTION: WHEELCHAIR: Activity did not occur on this shift LOCOMOTION: WHEELCHAIR - SCORE: 0-UNK LOCOMOTION: STAIRS: Activity did not occur on this shift LOCOMOTION: STAIRS - SCORE: 0-UNK COMPREHENSION: COMPREHENSION - SCORE: 0-UNK EXPRESSION EXPRESSION - SCORE: 0-UNK SOCIAL INTERACTION: SOCIAL INTERACTION - SCORE: 0-UNK PROBLEM SOLVING: PROBLEM SOLVING - SCORE: 0-UNK MEMORY: MEMORY - SCORE: 0-UNK SIGNATURE PANEL: The following modified sections: Transfers: Bed, Chair, Wheelchair - Score, Transfers: Toilet - Score , Locomotion: Walk - Score, Locomotion: Wheelchair - Score, Locomotion: Stairs - Score were [electron ically] signed by Dereje Fields PT on TueOct 27 2017 15:54:04 T-0500 (Central Daylight Time)
--- NOTE | 2017-10-27 17:52 | R.PN ---
ENCOUNTER DATE AND TIME: 10/27/2017 16:47 (CDT) NAME CHARIS MCKEON DATE OF : 1955 DATE OF ADMISSION: 10/25/2017 14:59 (CDT) Bilateral Tibial Plateau FractureCHIEF COMPLAINT: Tibial plateau fractures bilaterally SUBJECTIVE: Pt denied any Shortness of Breath. Pt denied any depression. Non-weight bearing on both lower extremities. Therapeutic exercises performed with lower and upper ex tremities. Bed mobility and transfers performed with minimum to moderate assistance. VITAL SIGNS Temperature: 97.7 F SBP/DBP: 176/80 Pulse: 75 Resp: 14 MEDICATION ALLERGIES: Clindamycin Sulfamethoxazole Trimethoprim Clonidine Losartan ENVIRONMENTAL ALLERGIES: None Known - Substance Allergies None Known - Other Allergies None Known NURSING: - Shower allowing shower - Skin care per protocol PRECAUTIONS: - Weight Bearing Precaution NWB both LE - Fall Precaution Bed and chair alarm ACTIVITIES OOB only with supervision THERAPIES: - Occupational Therapy Evaluate and Treat. - Physical Therapy Evaluate and Treat. PHYSICAL EXAM - Gen Alert and awake Lying in bed No apparent distress Oriented to: person, time, and place - Skin No skin breakdown. Normacephalic - Eyes No abnormalities - ENMT No abnormalities - Neck No abnormalities - CVS RRR - Chest Clear - Abd Soft - GI Non distended Deferred - No abnormalities - Ext No significant edema - MSK Unremarkable - Neuro No focal deficits - Psych No abnormalities ASSESSMENT: Pt. is a 62 yo Right-handed white female.On 10/17/2017 she was admitted to [facility] with diagnosis Bilateral Tibial Plateau Fracture.Her impairment category is Orthopaedic Disord ers 08 - Other Orthopaedic (08.9).Pre-morbidly, Pt. was independent/mod-I in Sphincter Control, Castañeda sfers Control, Communication, Social Cognition, Self-Care, and Locomotion; and she had good Sphincter Control.Currently, she has deficits of Endurance, Safety Awareness, Transfers Control, Balance, Self -Care, and Locomotion.Pt. is now referred to [facility] for acute in-patient r ehabilitation in order to maximize patient's functional independence in activities of daily living, s trength, ROM, and mobility.- Rehab Goal Patient has realistic goal of being discharged at assistance level 6-Nestor to reside at Home with Fam ani/Relatives. MDM/PLAN: - Physical Therapy Decreased range of motion - to improve, our physical therapists will perform initial evaluation of p t's status upon admission and devise an individualized program for increasing patient's Range of [place] on. Gait dysfunction - to improve, our physical therapists will perform initial evaluation of pt's statu s upon admission and devise an individualized program for Gait Training, and Wheel Chair mobility Inability to transfer - to improve, our physical therapists will perform initial evaluation of pt's status upon admission and devise an individualized program for Bed mobility Need for home safety evaluation - to improve, our physical therapists will perform initial evaluatio n of pt's status upon admission and devise an individualized program for Home Evaluation Need in caregiver upon discharge - to improve, our physical therapists will perform initial evaluati on of pt's status upon admission and devise an individualized program for Caregiver Training New precaution - to improve, our physical therapists will perform initial evaluation of pt's status upon admission and devise an individualized program for Patient precaution education Edema - to improve, our physical therapists will perform initial evaluation of pt's status upon admi ssion and devise an individualized program for Elevation Training, and Lymphedema Therapy Poor balance - to improve, our physical therapists will perform initial evaluation of pt's status up on admission and devise an individualized program for Balance Training Poor endurance - to improve, our physical therapists will perform initial evaluation of pt's status upon admission and devise an individualized program for Endurance Training Weakness - to improve, our physical therapists will perform initial evaluation of pt's status upon a dmission and devise an individualized program for Aquatic Therapy, Neuromuscular Reeducation, and Str engthening Achieving independence - to improve, our physical therapists will perform initial evaluation of pt's status upon admission and devise an individualized program for Community Reintegration Activities - Diet Type Continue Regular - Diet - Liquid Texture Continue Regular - Tube Feed Continue N/A - Weight Bearing Precaution NWB both LE - Fall Precaution Bed and chair alarm - Skin care per protocol - Diet - Solid Texture Continue Regular - Shower allowing shower - Occupational Therapy ADL deficits - to improve, our occupation therapists will perform initial evaluation of pt's status upon admission and devise an individualized program for Bathing, Bed mobility, Community Reintegratio n, Cooking, Dressing, Eating, Fine Motor Skills, Grooming, Homemaking, Kitchen Mobility, Laundry, Pat ient Education, Safety Awareness, Splinting - Positioning, Transfers(Toilet, Tub, Shower), and Wheel Chair Management Need for childbirth and infant care teacher - to improve, our occupation therapists will perform initial evaluation of pt's status upon admission and devise an individualized program for Caregiver Training Weakness - to improve, our occupation therapists will perform initial evaluation of pt's status upon admission and devise an individualized program for Aquatic Therapy, Balance, Endurance, UE ROM, and UE strengthening FUNCTIONAL STATUS: UPDATED AT WEEKLY TEAM CONFERENCE - Bladder Same Bladder control device used: catheter Same accident frequency: 7-Ind - No accidents in the past 7 days - Bowel Same accident frequency: 7-Ind - No accidents in the past 7 days - Walking Same score based on distance walked: 0(N/A) - Wheelchair Same score based on distance traveled: 0(N/A) FUNCTIONAL STATUS: - Self-Care A. Eating sup B. Grooming sup C. Bathing Dep D. Dressing - Upper Dep E. Dressing - Lower Dep F. Toileting Dep - Sphincter Control G: Bladder control Dep H: Bowel control Nestor - Transfers Control I. Bed/Chair/Wheelchair Dep J. Toilet Dep K. Tub/Shower ADNO - Locomotion L. Walk/Wheelchair (C) Dep L. Walk/Wheelchair (W) ADNO M. Stairs ADNO - Communication N. Comprehension (B) Nestor O. Expression (B) Nestor - Social Cognition P. Social Interaction Nestor Q. Problem Solving Nestor R. Memory Nestor - Endurance Poor - Balance Poor - Safety Awareness Poor CURRENT FUNC. DEFICITS: Endurance, Safety Awareness, Transfers Control, Balance, Self-Care, and Locomotion SIGNATURE PANEL: (CDT)
--- NOTE | 2017-10-27 17:53 | FAST ---
ENCOUNTER DATE AND TIME: 10/27/2017 08:00 (CDT) NAME CHARIS MCKEON DATE OF : 1955 DATE OF ADMISSION: 10/25/2017 14:59 (CDT) PHONE: AGE: 62 N# [id number] GENDER: Female ENCOUNTER PHYSICIAN: Dr. Marino Villar M.D. ADMISSION DIAGNOSIS: - Orthopaedic Disorders 08 - Other Orthopaedic (08.9) Bilateral Tibial Plateau Fracture. EATING: Activity did not occur on this shift EATING - SCORE: 0-UNK GROOMING: Activity did not occur on this shift GROOMING - SCORE: 0-UNK BATHING: Activity did not occur on this shift BATHING - SCORE: 0-UNK DRESSING - UPPER BODY: Activity did not occur on this shift Patient is not dressing in public clothing ARTICLES SCORE Total number of steps: 0 DRESSING - UPPER BODY - SCORE: 0-UNK DRESSING - LOWER BODY: Activity did not occur on this shift Patient is not dressing in public clothing ARTICLES SCORE Total number of steps: 0 DRESSING - LOWER BODY - SCORE: 0-UNK TOILETING: Activity did not occur on this shift TOILETING - SCORE: 0-UNK BLADDER MANAGEMENT: Activity did not occur on this shift BLADDER MANAGEMENT - SCORE: 7-IND BOWEL MANAGEMENT: Activity did not occur on this shift BOWEL MANAGEMENT - SCORE: 7-IND TRANSFERS: BED, CHAIR, WHEELCHAIR: Activity did not occur on this shift TRANSFERS: BED, CHAIR, WHEELCHAIR - SCORE: 0-UNK TRANSFERS: TOILET: Activity did not occur on this shift TRANSFERS: TOILET - SCORE: 0-UNK TRANSFERS: SHOWER: Activity did not occur on this shift TRANSFERS: SHOWER - SCORE: 0-UNK TRANSFERS: TUB: Activity did not occur on this shift TRANSFERS: TUB - SCORE: 0-UNK LOCOMOTION: WALK: Activity did not occur on this shift LOCOMOTION: WALK - SCORE: 0-UNK LOCOMOTION: WHEELCHAIR: Activity did not occur on this shift LOCOMOTION: WHEELCHAIR - SCORE: 0-UNK LOCOMOTION: STAIRS: Activity did not occur on this shift LOCOMOTION: STAIRS - SCORE: 0-UNK COMPREHENSION: COMPREHENSION - STEP 1: Does the patient require help to understand complex and abstract ideas (such as current events, finan pari, discharge planning, medical issues, relationships, etc)? Yes. COMPREHENSION - STEP 2: Does the patient require help to understand questions or statements about basic needs or ideas (such as hunger, thirst, sleep, safety, daily schedule, room location, or discomfort) half or more of the t maxx? No. COMPREHENSION - STEP 3: How often does the patient need help to understand directions and conversation about basic needs? 10% - 24% of the time COMPREHENSION - SCORE: 4-MIN EXPRESSION EXPRESSION - STEP 1: Does the patient require help expressing complex and abstract ideas (such as current events, finances , discharge planning, medical issues, relationships, etc)? Yes. EXPRESSION - STEP 2: Does the patient require help to express basic necessities or ideas (such as hunger, thirst, sleep, s afety, daily schedule, room location, or discomfort) half or more of the time? No. EXPRESSION - STEP 3: How often does the patient need help to express directions and conversation about basic needs? 10-24% of the time EXPRESSION - SCORE: 4-MIN SOCIAL INTERACTION: SOCIAL INTERACTION - STEP 1: Does the patient require a helper to interact with others in social and therapeutic situations? Yes. SOCIAL INTERACTION - STEP 2: Does the patient interact appropriately half or more of the time? Yes. SOCIAL INTERACTION - STEP 3: How often does the patient need help to interact appropriately? 10-24% of the time SOCIAL INTERACTION - SCORE: 4-MIN PROBLEM SOLVING: PROBLEM SOLVING - STEP 1: Does the patient need help to solve complex problems such as managing a checking account or confronti ng interpersonal problems? Yes. PROBLEM SOLVING - STEP 2: Does the patient solve basic routine problems half or more of the time? Yes. PROBLEM SOLVING - STEP 3: How often does the patient need help to solve basic routine problems? 25%-49% of the time PROBLEM SOLVING - SCORE: 3-MOD MEMORY: MEMORY - STEP 1: Does the patient need help to remember frequently encountered people, daily routines, and executing r equests? Yes. MEMORY - STEP 2: How often does the patient need help to remember frequently encountered people, daily routines, and e xecuting requests? 10% - 24% of the time MEMORY - SCORE: 4-MIN SIGNATURE PANEL: The following modified sections: Comprehension - Score, Expression - Score, Social Interaction - Scor e, Problem Solving - Score, Memory - Score were [electronically] signed by EDGARD Nino on Elizabeth J un 2017 16:53:14 T-0500 (Central Daylight Time)
[2017-10-27] MEDS ORDERED: SOD FERRIC GLUC COMPLX/SUCROSE 125 MG in NA CHLORIDE 0.9% 100 ML IV ONE (19:00)
[2017-10-27] MEDS: TRAZODONE 150 MG TAB PO SCH (21:13)
[2017-10-27] MEDS: MIRTAZAPINE 15 MG TAB PO SCH (21:13)
--- NOTE | 2017-10-27 21:24 | P.PN ---
Date of Service: 10/27/17 Vital Signs Temp Pulse Resp BP Pulse Ox 98 F 81 20 134/56 L 99 10/27/17 20:00 10/27/17 20:00 10/27/17 20:00 10/27/17 20:00 10/27/17 20:00 Medications Albuterol Sulfate (Proventil 0.083% Neb Soln) 2.5 mg NEB [id number] PRN PRN Reason: SHORTNESS OF BREATH Stop: 11/24/17 20:01 Amlodipine Besylate (Norvasc) 10 mg PO DAILY SUSAN Stop: 11/26/17 09:01 Last Admin: 10/27/17 08:37 Dose: 10 mg Aspirin (Aspirin Chewable) 81 mg PO DAILY SUSAN Stop: 11/25/17 08:01 Last Admin: 10/27/17 08:31 Dose: 81 mg Bisacodyl (Dulcolax) 10 mg IN DAILY PRN PRN Reason: CONSTIPATION Stop: 11/24/17 20:25 Calcitriol (Rocaltrol) 0.5 mcg PO DAILY SUSAN Stop: 11/25/17 08:01 Last Admin: 10/27/17 08:32 Dose: 0.5 mcg Carvedilol (Coreg) 25 mg PO BID 6AM 6PM SUSAN Stop: 11/24/17 18:01 Last Admin: 10/27/17 17:04 Dose: 25 mg Cetirizine HCl (Zyrtec) 10 mg PO DAILY SUSAN Stop: 11/25/17 08:01 Last Admin: 10/27/17 08:31 Dose: 10 mg Cholecalciferol (Vitamin D 5,000 Iu Cap) 5,000 unit PO DAILY SUSAN Stop: 11/25/17 08:01 Last Admin: 10/27/17 08:31 Dose: 5,000 unit Docusate Sodium (Colace Cap) 100 mg PO BID SUSAN Stop: 11/24/17 20:01 Last Admin: 10/27/17 19:56 Dose: Not Given Enoxaparin Sodium (Lovenox 30 Mg Inj) 30 mg SQ DAILY SUSAN Stop: 11/24/17 16:01 Last Admin: 10/27/17 08:00 Dose: Not Given Ferrous Sulfate (Feosol) 325 mg PO DAILY SUSAN Stop: 11/25/17 08:01 Last Admin: 10/27/17 08:31 Dose: 325 mg Gabapentin (Neurontin) 100 mg PO BID [facility] Stop: 11/25/17 08:01 Last Admin: 10/27/17 19:57 Dose: 100 mg Home Med (Home Med) 1 ea IH DAILY [facility] Stop: 11/25/17 08:01 Hydralazine HCl (Apresoline) 100 mg PO TID SUSAN Stop: 11/24/17 21:01 Last Admin: 10/27/17 21:14 Dose: 100 mg Isosorbide Mononitrate (Imdur) 30 mg PO BID SUSAN Stop: 11/25/17 08:01 Last Admin: 10/27/17 19:56 Dose: 30 mg Lactobacillus Acidoph/Bulgaricus (Lactinex) 1 tab PO DAILY SUSAN Stop: 11/26/17 08:01 Last Admin: 10/27/17 08:31 Dose: 1 tab Magnesium Hydroxide (Milk Of Magnesia) 30 ml PO BID PRN PRN Reason: CONSTIPATION Stop: 11/24/17 20:25 Magnesium Oxide (Mag 0x Tab) 400 mg PO DAILY SUSAN Stop: 11/25/17 08:01 Last Admin: 10/27/17 08:32 Dose: 400 mg Mirtazapine (Remeron) 15 mg PO BEDTIME SUSAN Stop: 11/24/17 21:01 Last Admin: 10/27/17 21:13 Dose: 15 mg Multivitamins/Iron (Hemocyte Plus) 1 tab PO DAILY WITH BREAKFAST SUSAN Stop: 11/25/17 08:01 Last Admin: 10/27/17 08:31 Dose: 1 tab Nutritional Formula (Ensure Enlive) 237 ml PO BID SUSAN Stop: 11/24/17 20:01 Last Admin: 10/27/17 19:59 Dose: Not Given Pantoprazole Sodium (Protonix Tab) 40 mg PO ACB SUSAN Stop: 11/25/17 07:31 Last Admin: 10/27/17 08:31 Dose: 40 mg Senna/Docusate Sodium (Senokot-S) 2 tab PO BEDTIME PRN PRN Reason: CONSTIPATION Stop: 11/24/17 20:25 Sodium Biphosphate/Sodium Phosphate (Fleet Enema Adult) 133 ml IN DAILY PRN PRN Reason: CONSTIPATION Stop: 11/24/17 20:26 Tramadol HCl (Ultram) 50 mg PO Q4HP PRN PRN Reason: PAIN Stop: 11/24/17 22:19 Last Admin: 10/27/17 13:19 Dose: 50 mg Trazodone HCl (Desyrel) 150 mg PO BEDTIME SUSAN Stop: 11/24/17 21:01 Last Admin: 10/27/17 21:13 Dose: 150 mg Lab Results (last 24 hrs) 10/27/17 06:28: Sodium 137, Potassium 4.6, Chloride 101, Carbon Dioxide 32 H, BUN 57 H, Creatinine 2.10 H, Estimated GFR 24 L, Glucose 89, Calcium 9.1 10/27/17 06:28: WBC 4.6, RBC 3.09 L D, Hgb 8.9 L, Hct 26.7 L D, MCV 86.4, MCH 28.7, MCHC 33.2, RDW 15.4 H, Plt Count 243, MPV 7.4 L, Neutrophils % 63.8, Lymphocytes % 14.6 L, Monocytes % 14.6 H, Eosinophils % 6.2 H, Basophils % 0.8, Absolute Neutrophils 3.0, Absolute Lymphocytes 0.7, Absolute Monocytes 0.7, Absolute Eosinophils 0.3, Absolute Basophils 0.0 10/27/17 04:00: ABO/Rh Cancelled, Antibody Screen Cancelled, Crossmatch See Detail 10/26/17 07:47: ABO/Rh O NEGATIVE, Antibody Screen Negative, Crossmatch See Detail Microbiology Results 10/25/17 20:15 Clean Catch Urine Childress Count - Preliminary <10,000 CFU/ML. 10/25/17 20:15 Clean Catch Urine - Preliminary Assessment/ Plan: Nephrology CPS stable without CP or SOB. No acute events overnight. Doing well. +Appetite Received PRBC yesterday. Vitals, medications, blood work and imaging reviewed in the chart. General: Alert, Oriented x3, Cooperative HEENT: Atraumatic, Mucous membr. moist/pink Neck: Supple Respiratory: Clear to auscultation bilaterally Cardiovascular: LE edema 1+ L>R, Regular rate/rhythm, No rubs Gastrointestinal: Soft and benign, Non-distended, No guarding Musculoskeletal: No clubbing, No contractures Integumentary: No rashes, No cyanosis Neurological: Normal speech Laboratory Data (last 24 hrs) 10/17/17 13:05: PT 11.2, INR 0.95, APTT 27.2 10/17/17 13:05: WBC 9.1 D, Hgb 9.5 L, Hct 29.8 L, Plt Count 217 D 10/17/17 13:05: B-Natriuretic Peptide 449 H 10/17/17 13:05: Sodium 135, Potassium 4.0, BUN 33 H, Creatinine 2.09 H, Glucose 89, Magnesium 2.3 D, Total Bilirubin < 0.1 L, AST 13, ALT 7 L, Alkaline Phosphatase 51, Lipase 18 L Imagings Data: EXAM DESCRIPTION: RAD - Chest Single View - 10/17/2017 12:50 pm CLINICAL HISTORY: Cough COMPARISON: 02/05/2016 FINDINGS: Portable technique limits examination quality. The lungs are emphysematous but grossly clear. The heart is normal in size. No displaced fractures. IMPRESSION: No acute intrathoracic process suspected. Conclusions/Impression: A/ MINDI/ CKD IV, worse. Acidosis. Hyponatremia. HTN with CKD. Diastolic CHF, chronic. Anemia in chronic illness. Iron deficiency. Multiple LE traumatic fractures sp fall. Chronic pain syndrome. Slow transit constipation. P/ Continue current POC and Medications. Start Amlodipine 10mg daily. Give IV iron X1 dose. Pain control as needed. AM labs. Daily weight. No NSAIDs.
--- NOTE | 2017-10-28 03:50 | FAST ---
SHIFT START DATE/TIME: 10/27/2017 19:00 (CDT) SHIFT END DATE/TIME: 10/28/2017 07:00 (CDT) NAME CHARIS MCKEON DATE OF : 1955 DATE OF ADMISSION: 10/25/2017 14:59 (CDT) PHONE: AGE: 62 N# [id number] GENDER: Female ENCOUNTER PHYSICIAN: Dr. Marino Villar M.D. ADMISSION DIAGNOSIS: - Orthopaedic Disorders 08 - Other Orthopaedic (08.9) Bilateral Tibial Plateau Fracture. EATING: Activity did not occur on this shift EATING - SCORE: 0-UNK GROOMING: Activity did not occur on this shift GROOMING - SCORE: 0-UNK BATHING: Activity did not occur on this shift BATHING - SCORE: 0-UNK DRESSING - UPPER BODY: Activity did not occur on this shift ARTICLES SCORE Total number of steps: 0 DRESSING - UPPER BODY - SCORE: 0-UNK DRESSING - LOWER BODY: Activity did not occur on this shift ARTICLES SCORE Total number of steps: 0 DRESSING - LOWER BODY - SCORE: 0-UNK TOILETING: Activity did not occur on this shift TOILETING - SCORE: 0-UNK BLADDER MANAGEMENT: Beulah cares for leyva catheter including emptying drainage bag. BLADDER MANAGEMENT - SCORE: 1-DEP BLADDER MANAGEMENT - FREQUENCY OF ACCIDENTS: BLADDER MANAGEMENT(FA) - STEP 1: How many accidents has the patient had during the current shift? 0 BOWEL MANAGEMENT: Activity did not occur on this shift BOWEL MANAGEMENT - SCORE: 7-IND BOWEL MANAGEMENT - FREQUENCY OF ACCIDENTS: BOWEL MANAGEMENT(FA) - STEP 1: How many accidents has the patient had during the current shift? 0 TRANSFERS: BED, CHAIR, WHEELCHAIR: Activity did not occur on this shift TRANSFERS: BED, CHAIR, WHEELCHAIR - SCORE: 0-UNK TRANSFERS: TOILET: Activity did not occur on this shift TRANSFERS: TOILET - SCORE: 0-UNK TRANSFERS: SHOWER: Activity did not occur on this shift TRANSFERS: SHOWER - SCORE: 0-UNK TRANSFERS: TUB: Activity did not occur on this shift TRANSFERS: TUB - SCORE: 0-UNK LOCOMOTION: WALK: Activity did not occur on this shift LOCOMOTION: WALK - SCORE: 0-UNK LOCOMOTION: WHEELCHAIR: Activity did not occur on this shift LOCOMOTION: WHEELCHAIR - SCORE: 0-UNK COMPREHENSION: COMPREHENSION: TYPE: Both COMPREHENSION - STEP 1: Does the patient require help to understand complex and abstract ideas (such as current events, finan pari, discharge planning, medical issues, relationships, etc)? No. COMPREHENSION - STEP 2: Does the patient need extra time, require an assistive device (such as glasses, hearing aids, or an a ugmentative communication system), OR does s/he have mild difficulty expressing complex and abstract ideas (including mild dysarthria or mild word-finding problems)? Yes. COMPREHENSION - SCORE: 6-DANIEL EXPRESSION EXPRESSION: TYPE: Both EXPRESSION - STEP 1: Does the patient require help expressing complex and abstract ideas (such as current events, finances , discharge planning, medical issues, relationships, etc)? No. EXPRESSION - STEP 2: Does the patient need extra time, require an assistive device (such as augmentive communication syste m or a communication board), OR does s/he have mild difficulty expressing complex and abstract ideas (including mild dysarthria or mild word-find problems)? Yes. EXPRESSION - SCORE: 6-DANIEL SOCIAL INTERACTION: SOCIAL INTERACTION - STEP 1: Does the patient require a helper to interact with others in social and therapeutic situations? No. SOCIAL INTERACTION - STEP 2: Does the patient need extra time in social situations, OR does s/he interact with staff, other patien ts, and family members ONLY in structured environments, OR does s/he require medication for social in teraction? Yes, patient requires medication for social interaction SOCIAL INTERACTION - SCORE: 6-DANIEL PROBLEM SOLVING: PROBLEM SOLVING - STEP 1: Does the patient need help to solve complex problems such as managing a checking account or confronti ng interpersonal problems? No. PROBLEM SOLVING - STEP 2: Does the patient require extra time to make decisions or solve problems, OR does s/he have slight dif ficulty reading, initiating, or self-correcting in unfamiliar situations? Yes, patient needs extra ti me. PROBLEM SOLVING - SCORE: 6-DANIEL MEMORY: MEMORY - STEP 1: Does the patient need help to remember frequently encountered people, daily routines, and executing r equests? No. MEMORY - STEP 2: Does the patient have slight difficulty recognizing frequently encountered people, daily routines, or executing requests without the need for repetition or using self-initiated or environmental cues to remember? No. MEMORY - SCORE: 7-IND SIGNATURE PANEL: The following modified sections: Eating - Score, Grooming - Score, Bathing - Score, Dressing - Upper Body - Score, Dressing - Lower Body - Score, Toileting - Score, Bladder Management - Score, Bowel Man agement - Score, Transfers: Bed, Chair, Wheelchair - Score, Transfers: Toilet - Score, Transfers: Charlene wer - Score, Transfers: Tub - Score, Locomotion: Walk - Score, Locomotion: Wheelchair - Score, Compre hension - Score, Expression - Score, Social Interaction - Score, Problem Solving - Score, Memory - Sc ore were [electronically] signed by Karen Lantigua RN on TueOct 28 2017 02:50:19 GMT-0500 (Centra [place] Daylight Time)
[2017-10-28] MEDS: CARVEDILOL 25 MG TAB PO SCH ×2 (05:28→17:28)
[2017-10-28] MEDS: ENOXAPARIN 30 MG/0.3 ML SQ SCH (07:03)
[2017-10-28] MEDS: TRAMADOL HCL 50 MG TAB PO PRN ×3 (07:03→19:33)
[2017-10-28] MEDS: DOCUSATE NA 100 MG CAP PO SCH ×2 (08:00→19:34)
[2017-10-28] MEDS: ENSURE ENLIVE 237 ML CAN PO SCH ×2 (08:00→19:35)
[2017-10-28] MEDS: GABAPENTIN 100 MG CAP PO SCH ×2 (08:29→19:34)
[2017-10-28] MEDS: FE SULF/FA/VIT B COMP & C TAB PO SCH (08:29)
[2017-10-28] MEDS: FERROUS SULFATE 325 MG TAB PO SCH (08:30)
[2017-10-28] MEDS: CETIRIZINE HCL 5 MG TABLET PO SCH (08:30)
[2017-10-28] MEDS: VITAMIN D 5,000 UNIT CAP PO SCH (08:30)
[2017-10-28] MEDS: AMLODIPINE 10 MG TAB PO SCH (08:30)
[2017-10-28] MEDS: MAGNESIUM OXIDE 400 MG TAB PO SCH (08:31)
[2017-10-28] MEDS: ASPIRIN 81 MG CHEWABLE TABLET PO SCH (08:31)
[2017-10-28] MEDS: CALCITROL 0.25 MCG CAP PO SCH (08:32)
[2017-10-28] MEDS: PANTOPRAZOLE 40MG TABLET PO SCH (08:33)
[2017-10-28] MEDS: LACTOBACILLUS/ACIDOPHILUS TAB PO SCH (08:33)
[2017-10-28] MEDS: HYDRALAZINE HCL 25 MG TABLET PO SCH ×3 (08:33→20:53)
[2017-10-28] MEDS: ISOSORBIDE MONO SR 30 MG TAB PO SCH ×2 (08:33→19:34)
--- NOTE | 2017-10-28 10:08 | FAST ---
ENCOUNTER DATE AND TIME: 10/26/2017 08:00 (CDT) NAME CHARIS MCKEON DATE OF : 1955 DATE OF ADMISSION: 10/25/2017 14:59 (CDT) PHONE: AGE: 62 N# [id number] GENDER: Female ENCOUNTER PHYSICIAN: Dr. Marino Villar M.D. ADMISSION DIAGNOSIS: - Orthopaedic Disorders 08 - Other Orthopaedic (08.9) Bilateral Tibial Plateau Fracture. EATING: EATING - STEP 1: Does the patient require assistance when eating? No. EATING - SCORE: 7-IND GROOMING: Comb/brush hair Oral care Wash, rinse, and dry face Wash, rinse, and dry hands GROOMING - STEP 1: Does the patient require assistance when grooming? Yes. GROOMING - STEP 2: Does the patient require the assistance of a helper? Yes. GROOMING - STEP 3: How much assistance does the patient require from the helper? Incidental touching assistance from the helper while grooming GROOMING - SCORE: 4-MIN BATHING: Abdomen Buttocks Chest Left arm Left lower leg and foot Left upper leg Perineal area Right arm Right lower leg and foot Right upper leg BATHING - STEP 1: Does the patient require assistance when bathing? Yes. BATHING - STEP 2: Does the patient require the assistance of a helper? Yes. BATHING - STEP 3: How much assistance does the patient require from the helper? More than just incidental help BATHING - STEP 4: What percent of the body parts did the patient bathe WITHOUT the helper? None. All work was performed by the helper BATHING - SCORE: 1-DEP DRESSING - UPPER BODY: T-shirt/pullover shirt (four steps) ARTICLES SCORE Total number of steps: 4 DRESSING - UPPER BODY - STEP 1: Does the patient require help when dressing above the waist? Yes. DRESSING - UPPER BODY - STEP 2: Does the patient require the assistance of a helper? Yes. DRESSING - UPPER BODY - STEP 3: Does the helper touch the patient while dressing? Yes. DRESSING - UPPER BODY - STEP 4: How many of the total steps does the patient complete on his/her own? 0 DRESSING - UPPER BODY - STEP 5: Does Patient require total assistance for dressing above the waist such as the helper holding clothin g and performing basically all the activities? Yes. DRESSING - UPPER BODY - SCORE: 1-DEP DRESSING - LOWER BODY: Underwear (three steps) ARTICLES SCORE Total number of steps: 3 DRESSING - LOWER BODY - STEP 1: Does the patient require help when dressing below the waist? Yes. DRESSING - LOWER BODY - STEP 2: Does the patient require the assistance of a helper? Yes. DRESSING - LOWER BODY - STEP 3: Does the helper touch the patient while dressing? Yes. DRESSING - LOWER BODY - STEP 4: How many of the total steps does the patient complete on his/her own? 0 DRESSING - LOWER BODY - STEP 5: Does patient require total assistance for dressing below the waist such as the helper holding clothin g and performing basically all the activities? Yes. DRESSING - LOWER BODY - SCORE: 1-DEP TOILETING: Activity did not occur on this shift TOILETING - SCORE: 0-UNK BLADDER MANAGEMENT: Activity did not occur on this shift BLADDER MANAGEMENT - SCORE: 7-IND BOWEL MANAGEMENT: Activity did not occur on this shift BOWEL MANAGEMENT - SCORE: 7-IND TRANSFERS: BED, CHAIR, WHEELCHAIR: Activity did not occur on this shift TRANSFERS: BED, CHAIR, WHEELCHAIR - SCORE: 0-UNK TRANSFERS: TOILET: Activity did not occur on this shift TRANSFERS: TOILET - SCORE: 0-UNK TRANSFERS: SHOWER: After patient transfers from bed to shower chair on wheels, the helper pushes the chair into the walk -in shower TRANSFERS: SHOWER - SCORE: 1-DEP TRANSFERS: TUB: Activity did not occur on this shift TRANSFERS: TUB - SCORE: 0-UNK LOCOMOTION: WALK: Activity did not occur on this shift LOCOMOTION: WALK - SCORE: 0-UNK LOCOMOTION: WHEELCHAIR: Activity did not occur on this shift LOCOMOTION: WHEELCHAIR - SCORE: 0-UNK LOCOMOTION: STAIRS: Activity did not occur on this shift LOCOMOTION: STAIRS - SCORE: 0-UNK COMPREHENSION: COMPREHENSION: TYPE: Both COMPREHENSION - STEP 1: Does the patient require help to understand complex and abstract ideas (such as current events, finan pari, discharge planning, medical issues, relationships, etc)? No. COMPREHENSION - STEP 2: Does the patient need extra time, require an assistive device (such as glasses, hearing aids, or an a ugmentative communication system), OR does s/he have mild difficulty expressing complex and abstract ideas (including mild dysarthria or mild word-finding problems)? Yes. COMPREHENSION - SCORE: 6-DANIEL EXPRESSION EXPRESSION: TYPE: Both EXPRESSION - STEP 1: Does the patient require help expressing complex and abstract ideas (such as current events, finances , discharge planning, medical issues, relationships, etc)? No. EXPRESSION - STEP 2: Does the patient need extra time, require an assistive device (such as augmentive communication syste m or a communication board), OR does s/he have mild difficulty expressing complex and abstract ideas (including mild dysarthria or mild word-find problems)? No. EXPRESSION - SCORE: 7-IND SOCIAL INTERACTION: SOCIAL INTERACTION - STEP 1: Does the patient require a helper to interact with others in social and therapeutic situations? No. SOCIAL INTERACTION - STEP 2: Does the patient need extra time in social situations, OR does s/he interact with staff, other patien ts, and family members ONLY in structured environments, OR does s/he require medication for social in teraction? Yes, patient needs extra time SOCIAL INTERACTION - SCORE: 6-DANIEL PROBLEM SOLVING: PROBLEM SOLVING - STEP 1: Does the patient need help to solve complex problems such as managing a checking account or confronti ng interpersonal problems? No. PROBLEM SOLVING - STEP 2: Does the patient require extra time to make decisions or solve problems, OR does s/he have slight dif ficulty reading, initiating, or self-correcting in unfamiliar situations? Yes, patient needs extra ti me. PROBLEM SOLVING - SCORE: 6-DANIEL MEMORY: MEMORY - STEP 1: Does the patient need help to remember frequently encountered people, daily routines, and executing r equests? No. MEMORY - STEP 2: Does the patient have slight difficulty recognizing frequently encountered people, daily routines, or executing requests without the need for repetition or using self-initiated or environmental cues to remember? Yes. MEMORY - SCORE: 6-DANIEL SIGNATURE PANEL: The following modified sections: Eating - Score, Grooming - Score, Bathing - Score, Dressing - Upper Body - Score, Dressing - Lower Body - Score, Toileting - Score, Transfers: Bed, Chair, Wheelchair - S core, Transfers: Toilet - Score, Transfers: Tub - Score, Transfers: Shower - Score, Comprehension - S core, Expression - Score, Social Interaction - Score, Problem Solving - Score, Memory - Score were [e lectronically] signed by Fiona Kong OT on TueOct 28 2017 09:08:47 GMT-0500 ([facility])
--- NOTE | 2017-10-28 10:14 | P.RH.PN ---
Estimated Length of Stay: 14 Expected Discharge Date: 11/07/17 Discharge Disposition Plan: Home Family Support: Yes Halfway Goal: Mobility, Transfers, Self Care Vital Signs: Last Vital Signs Temp 98.6 F 10/28/17 08:00 Pulse 81 10/28/17 08:30 Resp 16 10/28/17 08:00 BP 176/79 H 10/28/17 08:30 Pulse Ox 97 10/28/17 08:00 Laboratory: Laboratory Last Values WBC 4.6 K/uL (4.3-10.9) 10/27/17 06:28 RBC 3.09 M/uL (3.86-4.86) L D 10/27/17 06:28 Hgb 8.9 g/dL (12.0-15.0) L 10/27/17 06:28 Hct 26.7 % (36.0-45.0) L D 10/27/17 06:28 MCV 86.4 fL (80-100) 10/27/17 06:28 MCH 28.7 pg (27.0-35.0) 10/27/17 06:28 MCHC 33.2 g/dL (32.0-36.0) 10/27/17 06:28 RDW 15.4 % (12.1-15.2) H 10/27/17 06:28 Plt Count 243 K/uL (152-406) 10/27/17 06:28 MPV 7.4 fL (7.6-11.3) L 10/27/17 06:28 Neutrophils % 63.8 % (41.7-73.7) 10/27/17 06:28 Lymphocytes % 14.6 % (15.3-44.8) L 10/27/17 06:28 Monocytes % 14.6 % (3.3-12.3) H 10/27/17 06:28 Eosinophils % 6.2 % (0-4.4) H 10/27/17 06:28 Basophils % 0.8 % (0-1.3) 10/27/17 06:28 Absolute Neutrophils 3.0 K/uL (1.8-8.0) 10/27/17 06:28 Absolute Lymphocytes 0.7 K/uL (0.7-4.9) 10/27/17 06:28 Absolute Monocytes 0.7 K/uL (0.1-1.3) 10/27/17 06:28 Absolute Eosinophils 0.3 K/uL (0-0.5) 10/27/17 06:28 Absolute Basophils 0.0 K/uL (0-0.5) 10/27/17 06:28 Sodium 137 mEq/L (135-145) 10/27/17 06:28 Potassium 4.6 mEq/L (3.6-5.0) 10/27/17 06:28 Chloride 101 mEq/L (101-111) 10/27/17 06:28 Carbon Dioxide 32 mEq/L (21-31) H 10/27/17 06:28 BUN 57 mg/dL (6-20) H 10/27/17 06:28 Creatinine 2.10 mg/dL (0.44-1.00) H 10/27/17 06:28 Estimated GFR 24 mL/min (=/>90) L 10/27/17 06:28 Glucose 89 mg/dL (65-120) 10/27/17 06:28 Calcium 9.1 mg/dL (8.5-10.5) 10/27/17 06:28 Magnesium 1.8 mg/dL (1.8-2.5) 10/26/17 06:03 Albumin 2.0 g/dL (3.2-5.5) L 10/26/17 06:03 Prealbumin 9.8 mg/dl (18-38) L 10/26/17 06:03 Urine Color Yellow 10/25/17 20:15 Urine Appearance Clear 10/25/17 20:15 Urine pH 6.0 (5.0-7.0) 10/25/17 20:15 Ur Specific [place] 1.015 (1.005-1.030) 10/25/17 20:15 Urine Ketones Negative (NEG) 10/25/17 20:15 Urine Blood Negative (NEG) 10/25/17 20:15 Urine Nitrite Negative (NEG) 10/25/17 20:15 Urine Bilirubin Negative (NEG) 10/25/17 20:15 Urine Urobilinogen 0.2 mg/dL (0.2-1.0) 10/25/17 20:15 Ur Leukocyte Esterase Negative (NEG) 10/25/17 20:15 Urine RBC <5 /HPF (NONE SEEN) 10/25/17 20:15 Urine WBC <5 /HPF (<5) 10/25/17 20:15 Ur Squamous Epith Cells <5 /HPF (NONE SEEN) 10/25/17 20:15 Urine Bacteria 20-50 /HPF (<20) H 10/25/17 20:15 Urine Mucus 1+ /HPF (NONE SEEN) 10/25/17 20:15 Urine Culture Reflexed Not needed 10/25/17 20:15 Urine Glucose Negative (NEG) 10/25/17 20:15 Urine Total Protein 1+ (NEG) H 10/25/17 20:15 ABO/Rh O NEGATIVE 10/26/17 07:47 Antibody Screen Negative 10/26/17 07:47 Crossmatch See Detail 10/27/17 04:00 Weight: 101 lb Wound Present: Yes Closed Surgical Incision Present: Yes Negative Pressure Wound Therapy Present: No Physician Update: She has chronic anemia and is status post one unit of packed red blood cells. She still has poor energy. She is doing well using the transfer board given her nonweight bearing status. Will increase gabapentin to 300mg bid. Functional Improvement: pt is demonstrating progress. pt is limited by chronic tail bone pain and struggles to sit up in w/c for prolonged periods of time. pt continues to require skilled PT services to enhance functional mobility and safety. Summary: Patient's care plan and nursing home goals have been reviewed and revised as necessary. Please see the Rehabilitation Signature page for all necessary signatures.
--- NOTE | 2017-10-28 11:48 | FAST ---
SHIFT START DATE/TIME: 10/28/2017 07:00 (CDT) SHIFT END DATE/TIME: 10/28/2017 19:00 (CDT) NAME CHARIS MCKEON DATE OF : 1955 DATE OF ADMISSION: 10/25/2017 14:59 (CDT) PHONE: AGE: 62 N# [id number] GENDER: Female ENCOUNTER PHYSICIAN: Dr. Marino Villar M.D. ADMISSION DIAGNOSIS: - Orthopaedic Disorders 08 - Other Orthopaedic (08.9) Bilateral Tibial Plateau Fracture. EATING: EATING - STEP 1: Does the patient require assistance when eating? No. EATING - SCORE: 7-IND GROOMING: Oral care GROOMING - STEP 1: Does the patient require assistance when grooming? No. GROOMING - SCORE: 7-IND BATHING: Activity did not occur on this shift BATHING - SCORE: 0-UNK DRESSING - UPPER BODY: Activity did not occur on this shift ARTICLES SCORE Total number of steps: 0 DRESSING - UPPER BODY - SCORE: 0-UNK DRESSING - LOWER BODY: Activity did not occur on this shift ARTICLES SCORE Total number of steps: 0 DRESSING - LOWER BODY - SCORE: 0-UNK TOILETING: TOILETING - STEP 1: Does the patient require assistance with toileting? Yes. TOILETING - STEP 2: Does the patient require the assistance of a helper? Yes. TOILETING - STEP 3: How much assistance does the patient require from the helper? Hands-on assistance from the helper TOILETING - STEP 4: Of the 3 tasks: 1) Adjusting clothing prior to use, 2) Cleansing of perineal area, 3) Adjusting clot toby after use; How many tasks does the patient perform WITHOUT assistance of the helper? No tasks; h oliver performs all three tasks TOILETING - SCORE: 1-DEP BLADDER MANAGEMENT: [place] cares for leyva catheter including emptying drainage bag. BLADDER MANAGEMENT - SCORE: 1-DEP BLADDER MANAGEMENT - FREQUENCY OF ACCIDENTS: BLADDER MANAGEMENT(FA) - STEP 1: How many accidents has the patient had during the current shift? 0 BOWEL MANAGEMENT: BOWEL MANAGEMENT - STEP 1: Does the patient control bowels completely and intentionally without equipment devices or medications AND is always continent? No. BOWEL MANAGEMENT - STEP 2: Does the patient require the assistance of a helper? Yes. BOWEL MANAGEMENT - STEP 3: How much assistance does the patient require from the helper? Patient requires maximal assistance - p erforms 25% to 49 % of bowel management tasks BOWEL MANAGEMENT - SCORE: 2-MAX BOWEL MANAGEMENT - FREQUENCY OF ACCIDENTS: BOWEL MANAGEMENT(FA) - STEP 1: How many accidents has the patient had during the current shift? 0 TRANSFERS: BED, CHAIR, WHEELCHAIR: TRANSFERS: BED, CHAIR, WHEELCHAIR - STEP 1: Does the patient require assistance with bed, chair, or wheelchair transfers? Yes. TRANSFERS: BED, CHAIR, WHEELCHAIR - STEP 2: Does the patient require the assistance of a helper? Yes. TRANSFERS: BED, CHAIR, WHEELCHAIR - STEP 3: How much assistance does the patient require from the helper? Lifting of the patient TRANSFERS: BED, CHAIR, WHEELCHAIR - STEP 4: Does the helper lift the patient ONLY up? ONLY down? Up AND Down? Patient needs help with all lifting TRANSFERS: BED, CHAIR, WHEELCHAIR - SCORE: 1-DEP TRANSFERS: TOILET: TRANSFERS: TOILET - STEP 1: Does the patient require assistance with toilet transfers? Yes. TRANSFERS: TOILET - STEP 2: Does the patient require the assistance of a helper? Yes. TRANSFERS: TOILET - STEP 3: How much assistance does the patient require from the helper? Patient performs less than half of the transferring tasks TRANSFERS: TOILET - STEP 4: Does the patient require total assistance for the toilet transfer such as the helper doing basically all the lifting? Yes. TRANSFERS: TOILET - SCORE: 1-DEP TRANSFERS: SHOWER: Activity did not occur on this shift TRANSFERS: SHOWER - SCORE: 0-UNK TRANSFERS: TUB: Activity did not occur on this shift TRANSFERS: TUB - SCORE: 0-UNK LOCOMOTION: WALK: Activity did not occur on this shift LOCOMOTION: WALK - SCORE: 0-UNK LOCOMOTION: WHEELCHAIR: Activity did not occur on this shift LOCOMOTION: WHEELCHAIR - SCORE: 0-UNK COMPREHENSION: COMPREHENSION - SCORE: 0-UNK EXPRESSION EXPRESSION - SCORE: 0-UNK SOCIAL INTERACTION: SOCIAL INTERACTION - SCORE: 0-UNK PROBLEM SOLVING: PROBLEM SOLVING - SCORE: 0-UNK MEMORY: MEMORY - SCORE: 0-UNK SIGNATURE PANEL: The following modified sections: Eating - Score, Grooming - Score, Bathing - Score, Dressing - Upper Body - Score, Dressing - Lower Body - Score, Toileting - Score, Bladder Management - Score, Bowel Man agement - Score, Transfers: Bed, Chair, Wheelchair - Score, Transfers: Toilet - Score, Transfers: Charlene wer - Score, Transfers: Tub - Score, Locomotion: Walk - Score, Locomotion: Wheelchair - Score, Compre hension - Score, Expression - Score, Social Interaction - Score, Problem Solving - Score, Memory - Sc ore were [electronically] signed by Bonita Lambert CNA on TueOct 28 2017 10:48:16 T-0500 (Cent[facility] [place] Daylight Time)
--- NOTE | 2017-10-28 13:19 | RAD REPORT ---
EXAM DESCRIPTION: RAD - Abdomen 1 View (KUB) - 10/28/2017 1:13 pm CLINICAL HISTORY: Abdomen pain. FINDINGS: The bowel gas pattern is unremarkable. No abnormal calcification is displayed. Bilateral hip arthroplasties have been performed
[2017-10-28 13:28] LABS: Absolute Lymphocytes (CBC) 0.5 K/uL (0.7-4.9); Absolute Monocytes 0.6 K/uL (0.1-1.3); Absolute Neutrophil 4.5 K/uL (1.8-8.0); Basophils % 0.9 % (0-1.3); Eosinophils % 4.8 % (0-4.4); Lymphocytes % 8.3 % (15.3-44.8); MCH 29.3 pg (27.0-35.0); MPV 7.5 fL (7.6-11.3); Monocytes % 10.5 % (3.3-12.3); RBC Red Blood Cell Count 3.44 M/uL (3.86-4.86)
--- NOTE | 2017-10-28 16:20 | FAST ---
ENCOUNTER DATE AND TIME: 10/28/2017 08:00 (CDT) NAME CHARIS MCKEON DATE OF : 1955 DATE OF ADMISSION: 10/25/2017 14:59 (CDT) PHONE: AGE: 62 N# [id number] GENDER: Female ENCOUNTER PHYSICIAN: Dr. Marino Villar M.D. ADMISSION DIAGNOSIS: - Orthopaedic Disorders 08 - Other Orthopaedic (08.9) Bilateral Tibial Plateau Fracture. EATING: Activity did not occur on this shift EATING - SCORE: 0-UNK GROOMING: Wash, rinse, and dry face Wash, rinse, and dry hands GROOMING - STEP 1: Does the patient require assistance when grooming? No. GROOMING - SCORE: 7-IND BATHING: Abdomen Buttocks Chest Left arm Left lower leg and foot Left upper leg Perineal area Right arm Right lower leg and foot Right upper leg BATHING - STEP 1: Does the patient require assistance when bathing? Yes. BATHING - STEP 2: Does the patient require the assistance of a helper? Yes. BATHING - STEP 3: How much assistance does the patient require from the helper? More than just incidental help BATHING - STEP 4: What percent of the body parts did the patient bathe WITHOUT the helper? Half or more of the body par ts BATHING - SCORE: 3-MOD DRESSING - UPPER BODY: T-shirt/pullover shirt (four steps) ARTICLES SCORE Total number of steps: 4 DRESSING - UPPER BODY - STEP 1: Does the patient require help when dressing above the waist? Yes. DRESSING - UPPER BODY - STEP 2: Does the patient require the assistance of a helper? Yes. DRESSING - UPPER BODY - STEP 3: Does the helper touch the patient while dressing? No. DRESSING - UPPER BODY - SCORE: 5-SUP DRESSING - LOWER BODY: Activity did not occur on this shift ARTICLES SCORE Total number of steps: 0 DRESSING - LOWER BODY - SCORE: 0-UNK TOILETING: Activity did not occur on this shift TOILETING - SCORE: 0-UNK BLADDER MANAGEMENT: Activity did not occur on this shift BLADDER MANAGEMENT - SCORE: 7-IND BOWEL MANAGEMENT: Activity did not occur on this shift BOWEL MANAGEMENT - SCORE: 7-IND TRANSFERS: BED, CHAIR, WHEELCHAIR: Activity did not occur on this shift TRANSFERS: BED, CHAIR, WHEELCHAIR - SCORE: 0-UNK TRANSFERS: TOILET: Activity did not occur on this shift TRANSFERS: TOILET - SCORE: 0-UNK TRANSFERS: SHOWER: More than one helper is required for shower transfer TRANSFERS: SHOWER - SCORE: 1-DEP TRANSFERS: TUB: Activity did not occur on this shift TRANSFERS: TUB - SCORE: 0-UNK LOCOMOTION: WALK: Activity did not occur on this shift LOCOMOTION: WALK - SCORE: 0-UNK LOCOMOTION: WHEELCHAIR: Activity did not occur on this shift LOCOMOTION: WHEELCHAIR - SCORE: 0-UNK LOCOMOTION: STAIRS: Activity did not occur on this shift LOCOMOTION: STAIRS - SCORE: 0-UNK COMPREHENSION: COMPREHENSION - SCORE: 0-UNK EXPRESSION EXPRESSION - SCORE: 0-UNK SOCIAL INTERACTION: SOCIAL INTERACTION - SCORE: 0-UNK PROBLEM SOLVING: PROBLEM SOLVING - SCORE: 0-UNK MEMORY: MEMORY - SCORE: 0-UNK SIGNATURE PANEL: The following modified sections: Eating - Score, Grooming - Score, Bathing - Score, Dressing - Upper Body - Score, Dressing - Lower Body - Score, Toileting - Score, Transfers: Bed, Chair, Wheelchair - S core, Transfers: Toilet - Score, Transfers: Shower - Score, Transfers: Tub - Score, Comprehension - S core, Expression - Score, Social Interaction - Score, Problem Solving - Score, Memory - Score were [e lectronically] signed by KAYE Marc on TueOct 28 2017 15:20:30 [facility]-0500 ([facility] Time)
--- NOTE | 2017-10-28 16:44 | FAST ---
ENCOUNTER DATE AND TIME: 10/28/2017 08:00 (CDT) NAME CHARIS MCKEON DATE OF : 1955 DATE OF ADMISSION: 10/25/2017 14:59 (CDT) PHONE: AGE: 62 N# [id number] GENDER: Female ENCOUNTER PHYSICIAN: Dr. Marino Villar M.D. ADMISSION DIAGNOSIS: - Orthopaedic Disorders 08 - Other Orthopaedic (08.9) Bilateral Tibial Plateau Fracture. EATING: Activity did not occur on this shift EATING - SCORE: 0-UNK GROOMING: Activity did not occur on this shift GROOMING - SCORE: 0-UNK BATHING: Activity did not occur on this shift BATHING - SCORE: 0-UNK DRESSING - UPPER BODY: Activity did not occur on this shift Patient is not dressing in public clothing ARTICLES SCORE Total number of steps: 0 DRESSING - UPPER BODY - SCORE: 0-UNK DRESSING - LOWER BODY: Activity did not occur on this shift Patient is not dressing in public clothing ARTICLES SCORE Total number of steps: 0 DRESSING - LOWER BODY - SCORE: 0-UNK TOILETING: Activity did not occur on this shift TOILETING - SCORE: 0-UNK BLADDER MANAGEMENT: Activity did not occur on this shift BLADDER MANAGEMENT - SCORE: 7-IND BOWEL MANAGEMENT: Activity did not occur on this shift BOWEL MANAGEMENT - SCORE: 7-IND TRANSFERS: BED, CHAIR, WHEELCHAIR: Patient requires more than one helper and/or the use of a mechanical lift is utilized TRANSFERS: BED, CHAIR, WHEELCHAIR - SCORE: 1-DEP TRANSFERS: TOILET: Activity did not occur on this shift TRANSFERS: TOILET - SCORE: 0-UNK TRANSFERS: SHOWER: Activity did not occur on this shift TRANSFERS: SHOWER - SCORE: 0-UNK TRANSFERS: TUB: Activity did not occur on this shift TRANSFERS: TUB - SCORE: 0-UNK LOCOMOTION: WALK: Activity did not occur on this shift LOCOMOTION: WALK - SCORE: 0-UNK LOCOMOTION: WHEELCHAIR: LOCOMOTION: WHEELCHAIR - STEP 1: Does the patient need help to go 150 feet in a wheelchair? Yes. LOCOMOTION: WHEELCHAIR - STEP 2: How much assistance does the patient need from the helper? Patient goes less than 150 feet - but more than 50 feet - with the assistance of only one helper LOCOMOTION: WHEELCHAIR - SCORE: 2-MAX LOCOMOTION: STAIRS: Activity did not occur on this shift LOCOMOTION: STAIRS - SCORE: 0-UNK COMPREHENSION: COMPREHENSION - SCORE: 0-UNK EXPRESSION EXPRESSION - SCORE: 0-UNK SOCIAL INTERACTION: SOCIAL INTERACTION - SCORE: 0-UNK PROBLEM SOLVING: PROBLEM SOLVING - SCORE: 0-UNK MEMORY: MEMORY - SCORE: 0-UNK SIGNATURE PANEL: The following modified sections: Transfers: Bed, Chair, Wheelchair - Score, Transfers: Toilet - Score , Locomotion: Walk - Score, Locomotion: Wheelchair - Score, Locomotion: Stairs - Score were [electron [email or web address]] signed by Dereje Fields, PT on TueOct 28 2017 15:44:23 T-0500 (Central Daylight Time)
--- NOTE | 2017-10-28 17:46 | FAST ---
ENCOUNTER DATE AND TIME: 10/28/2017 08:00 (CDT) NAME CHARIS MCKEON DATE OF : 1955 DATE OF ADMISSION: 10/25/2017 14:59 (CDT) PHONE: AGE: 62 N# [id number] GENDER: Female ENCOUNTER PHYSICIAN: Dr. Marino Villar M.D. ADMISSION DIAGNOSIS: - Orthopaedic Disorders 08 - Other Orthopaedic (08.9) Bilateral Tibial Plateau Fracture. EATING: Activity did not occur on this shift EATING - SCORE: 0-UNK GROOMING: Activity did not occur on this shift GROOMING - SCORE: 0-UNK BATHING: Activity did not occur on this shift BATHING - SCORE: 0-UNK DRESSING - UPPER BODY: Activity did not occur on this shift Patient is not dressing in public clothing ARTICLES SCORE Total number of steps: 0 DRESSING - UPPER BODY - SCORE: 0-UNK DRESSING - LOWER BODY: Activity did not occur on this shift Patient is not dressing in public clothing ARTICLES SCORE Total number of steps: 0 DRESSING - LOWER BODY - SCORE: 0-UNK TOILETING: Activity did not occur on this shift TOILETING - SCORE: 0-UNK BLADDER MANAGEMENT: Activity did not occur on this shift BLADDER MANAGEMENT - SCORE: 7-IND BOWEL MANAGEMENT: Activity did not occur on this shift BOWEL MANAGEMENT - SCORE: 7-IND TRANSFERS: BED, CHAIR, WHEELCHAIR: Activity did not occur on this shift TRANSFERS: BED, CHAIR, WHEELCHAIR - SCORE: 0-UNK TRANSFERS: TOILET: Activity did not occur on this shift TRANSFERS: TOILET - SCORE: 0-UNK TRANSFERS: SHOWER: Activity did not occur on this shift TRANSFERS: SHOWER - SCORE: 0-UNK TRANSFERS: TUB: Activity did not occur on this shift TRANSFERS: TUB - SCORE: 0-UNK LOCOMOTION: WALK: Activity did not occur on this shift LOCOMOTION: WALK - SCORE: 0-UNK LOCOMOTION: WHEELCHAIR: Activity did not occur on this shift LOCOMOTION: WHEELCHAIR - SCORE: 0-UNK LOCOMOTION: STAIRS: Activity did not occur on this shift LOCOMOTION: STAIRS - SCORE: 0-UNK COMPREHENSION: COMPREHENSION - STEP 1: Does the patient require help to understand complex and abstract ideas (such as current events, finan pari, discharge planning, medical issues, relationships, etc)? No. COMPREHENSION - STEP 2: Does the patient need extra time, require an assistive device (such as glasses, hearing aids, or an a ugmentative communication system), OR does s/he have mild difficulty expressing complex and abstract ideas (including mild dysarthria or mild word-finding problems)? Yes. COMPREHENSION - SCORE: 6-DANIEL EXPRESSION EXPRESSION - STEP 1: Does the patient require help expressing complex and abstract ideas (such as current events, finances , discharge planning, medical issues, relationships, etc)? No. EXPRESSION - STEP 2: Does the patient need extra time, require an assistive device (such as augmentive communication syste m or a communication board), OR does s/he have mild difficulty expressing complex and abstract ideas (including mild dysarthria or mild word-find problems)? No. EXPRESSION - SCORE: 7-IND SOCIAL INTERACTION: SOCIAL INTERACTION - STEP 1: Does the patient require a helper to interact with others in social and therapeutic situations? No. SOCIAL INTERACTION - STEP 2: Does the patient need extra time in social situations, OR does s/he interact with staff, other patien ts, and family members ONLY in structured environments, OR does s/he require medication for social in teraction? No. SOCIAL INTERACTION - SCORE: 7-IND PROBLEM SOLVING: PROBLEM SOLVING - STEP 1: Does the patient need help to solve complex problems such as managing a checking account or confronti ng interpersonal problems? Yes. PROBLEM SOLVING - STEP 2: Does the patient solve basic routine problems half or more of the time? Yes. PROBLEM SOLVING - STEP 3: How often does the patient need help to solve basic routine problems? Less than 10% of the time PROBLEM SOLVING - SCORE: 5-SUP MEMORY: MEMORY - STEP 1: Does the patient need help to remember frequently encountered people, daily routines, and executing r equests? Yes. MEMORY - STEP 2: How often does the patient need help to remember frequently encountered people, daily routines, and e xecuting requests? Less than 10% of the time MEMORY - SCORE: 5-SUP SIGNATURE PANEL: The following modified sections: Comprehension - Score, Expression - Score, Social Interaction - Scor e, Problem Solving - Score, Memory - Score were [electronically] signed by EDGARD Nino on Tue 16:46:45 T-0500 (Central Daylight Time)
[2017-10-28] MEDS: GABAPENTIN 300 MG CAP PO SCH (19:34)
[2017-10-28] MEDS: PROMOD 30 ML DOSE PO SCH (19:35)
[2017-10-28] MEDS: MIRTAZAPINE 15 MG TAB PO SCH (20:53)
[2017-10-28] MEDS: TAMSULOSIN 0.4 MG SR CAP PO SCH (20:53)
[2017-10-28] MEDS: TRAZODONE 150 MG TAB PO SCH (20:53)
[2017-10-29] MEDS: TRAMADOL HCL 50 MG TAB PO PRN ×3 (02:16→23:28)
--- NOTE | 2017-10-29 03:25 | FAST ---
SHIFT START DATE/TIME: 10/28/2017 19:00 (CDT) SHIFT END DATE/TIME: 10/29/2017 07:00 (CDT) NAME CHARIS MCKEON DATE OF : 1955 DATE OF ADMISSION: 10/25/2017 14:59 (CDT) PHONE: AGE: 62 N# [id number] GENDER: Female ENCOUNTER PHYSICIAN: Dr. Marino Villar M.D. ADMISSION DIAGNOSIS: - Orthopaedic Disorders 08 - Other Orthopaedic (08.9) Bilateral Tibial Plateau Fracture. EATING: Activity did not occur on this shift EATING - SCORE: 0-UNK GROOMING: Activity did not occur on this shift GROOMING - SCORE: 0-UNK BATHING: Activity did not occur on this shift BATHING - SCORE: 0-UNK DRESSING - UPPER BODY: Patient is not dressing in public clothing ARTICLES SCORE Total number of steps: 0 DRESSING - UPPER BODY - SCORE: 0-UNK DRESSING - LOWER BODY: Patient is not dressing in public clothing ARTICLES SCORE Total number of steps: 0 DRESSING - LOWER BODY - SCORE: 0-UNK TOILETING: TOILETING - STEP 1: Does the patient require assistance with toileting? Yes. TOILETING - STEP 2: Does the patient require the assistance of a helper? Yes. TOILETING - STEP 3: How much assistance does the patient require from the helper? Hands-on assistance from the helper TOILETING - STEP 4: Of the 3 tasks: 1) Adjusting clothing prior to use, 2) Cleansing of perineal area, 3) Adjusting clot toby after use; How many tasks does the patient perform WITHOUT assistance of the helper? No tasks; h elper performs all three tasks TOILETING - SCORE: 1-DEP BLADDER MANAGEMENT: [place] cares for leyva catheter including emptying drainage bag. BLADDER MANAGEMENT - SCORE: 1-DEP BOWEL MANAGEMENT: Activity did not occur on this shift BOWEL MANAGEMENT - SCORE: 7-IND TRANSFERS: BED, CHAIR, WHEELCHAIR: Activity did not occur on this shift TRANSFERS: BED, CHAIR, WHEELCHAIR - SCORE: 0-UNK TRANSFERS: TOILET: Activity did not occur on this shift TRANSFERS: TOILET - SCORE: 0-UNK TRANSFERS: SHOWER: Activity did not occur on this shift TRANSFERS: SHOWER - SCORE: 0-UNK TRANSFERS: TUB: Activity did not occur on this shift TRANSFERS: TUB - SCORE: 0-UNK LOCOMOTION: WALK: Activity did not occur on this shift LOCOMOTION: WALK - SCORE: 0-UNK LOCOMOTION: WHEELCHAIR: Activity did not occur on this shift LOCOMOTION: WHEELCHAIR - SCORE: 0-UNK COMPREHENSION: COMPREHENSION: TYPE: Both COMPREHENSION - STEP 1: Does the patient require help to understand complex and abstract ideas (such as current events, finan pari, discharge planning, medical issues, relationships, etc)? No. COMPREHENSION - STEP 2: Does the patient need extra time, require an assistive device (such as glasses, hearing aids, or an a ugmentative communication system), OR does s/he have mild difficulty expressing complex and abstract ideas (including mild dysarthria or mild word-finding problems)? Yes. COMPREHENSION - SCORE: 6-DANIEL EXPRESSION EXPRESSION: TYPE: Both EXPRESSION - STEP 1: Does the patient require help expressing complex and abstract ideas (such as current events, finances , discharge planning, medical issues, relationships, etc)? No. EXPRESSION - STEP 2: Does the patient need extra time, require an assistive device (such as augmentive communication syste m or a communication board), OR does s/he have mild difficulty expressing complex and abstract ideas (including mild dysarthria or mild word-find problems)? No. EXPRESSION - SCORE: 7-IND SOCIAL INTERACTION: SOCIAL INTERACTION - STEP 1: Does the patient require a helper to interact with others in social and therapeutic situations? No. SOCIAL INTERACTION - STEP 2: Does the patient need extra time in social situations, OR does s/he interact with staff, other patien ts, and family members ONLY in structured environments, OR does s/he require medication for social in teraction? Yes, patient requires medication for social interaction SOCIAL INTERACTION - SCORE: 6-DANIEL PROBLEM SOLVING: PROBLEM SOLVING - STEP 1: Does the patient need help to solve complex problems such as managing a checking account or confronti ng interpersonal problems? No. PROBLEM SOLVING - STEP 2: Does the patient require extra time to make decisions or solve problems, OR does s/he have slight dif ficulty reading, initiating, or self-correcting in unfamiliar situations? No. PROBLEM SOLVING - SCORE: 7-IND MEMORY: MEMORY - STEP 1: Does the patient need help to remember frequently encountered people, daily routines, and executing r equests? No. MEMORY - STEP 2: Does the patient have slight difficulty recognizing frequently encountered people, daily routines, or executing requests without the need for repetition or using self-initiated or environmental cues to remember? No. MEMORY - SCORE: 7-IND
[2017-10-29] MEDS: CARVEDILOL 25 MG TAB PO SCH ×2 (05:29→17:05)
[2017-10-29 06:32] LABS: Absolute Lymphocytes (CBC) 0.7 K/uL (0.7-4.9); Absolute Monocytes 0.7 K/uL (0.1-1.3); Absolute Neutrophil 4.1 K/uL (1.8-8.0); Basophils % 1.1 % (0-1.3); Eosinophils % 3.9 % (0-4.4); Hematocrit 24.2 % (36.0-45.0); Lymphocytes % 12.5 % (15.3-44.8); MCH 29.2 pg (27.0-35.0); MCV 86.4 fL (80-100); MPV 7.4 fL (7.6-11.3); Monocytes % 11.3 % (3.3-12.3)
[2017-10-29 07:14] LABS: Albumin 2.2 g/dL (3.2-5.5); Bilirubin Total 0.5 mg/dL (0.3-1.2); Magnesium 1.5 mg/dL (1.8-2.5); Phosphorus 4.7 mg/dL (2.5-4.3); Protein, Total 4.4 g/dL (6.0-8.3)
[2017-10-29 07:29] LABS: Potassium 5.7 mEq/L (3.6-5.0)
[2017-10-29] MEDS: DOCUSATE NA 100 MG CAP PO SCH ×2 (08:00→20:00)
[2017-10-29] MEDS: ENSURE ENLIVE 237 ML CAN PO SCH (08:00)
[2017-10-29] MEDS: PANTOPRAZOLE 40MG TABLET PO SCH (08:26)
[2017-10-29] MEDS: ENOXAPARIN 30 MG/0.3 ML SQ SCH (08:57)
[2017-10-29] MEDS: LACTOBACILLUS/ACIDOPHILUS TAB PO SCH (08:58)
[2017-10-29] MEDS: CETIRIZINE HCL 5 MG TABLET PO SCH (08:58)
[2017-10-29] MEDS: AMLODIPINE 10 MG TAB PO SCH (08:58)
[2017-10-29] MEDS: ASPIRIN 81 MG CHEWABLE TABLET PO SCH (08:58)
[2017-10-29] MEDS: MAGNESIUM OXIDE 400 MG TAB PO SCH (08:58)
[2017-10-29] MEDS: FERROUS SULFATE 325 MG TAB PO SCH (08:58)
[2017-10-29] MEDS: ISOSORBIDE MONO SR 30 MG TAB PO SCH ×2 (08:58→20:41)
[2017-10-29] MEDS: VITAMIN D 5,000 UNIT CAP PO SCH (08:58)
[2017-10-29] MEDS: FE SULF/FA/VIT B COMP & C TAB PO SCH (08:58)
[2017-10-29] MEDS: GABAPENTIN 100 MG CAP PO SCH ×2 (08:58→20:41)
[2017-10-29] MEDS: GABAPENTIN 300 MG CAP PO SCH ×2 (08:58→20:41)
[2017-10-29] MEDS: CALCITROL 0.25 MCG CAP PO SCH (08:58)
[2017-10-29] MEDS: PROMOD 30 ML DOSE PO SCH ×2 (09:00→20:41)
[2017-10-29] MEDS ORDERED: SOD POLYSTYREN SUL 15 GM/60 ML UCUP PO ONE (09:28)
[2017-10-29] MEDS: HYDRALAZINE HCL 25 MG TABLET PO SCH ×3 (10:29→20:42)
--- NOTE | 2017-10-29 15:46 | FAST ---
ENCOUNTER DATE AND TIME: 10/29/2017 08:00 (CDT) NAME CHARIS MCKEON DATE OF : 1955 DATE OF ADMISSION: 10/25/2017 14:59 (CDT) PHONE: AGE: 62 N# [id number] GENDER: Female ENCOUNTER PHYSICIAN: Dr. Marino Villar M.D. ADMISSION DIAGNOSIS: - Orthopaedic Disorders 08 - Other Orthopaedic (08.9) Bilateral Tibial Plateau Fracture. EATING: Activity did not occur on this shift EATING - SCORE: 0-UNK GROOMING: Activity did not occur on this shift GROOMING - SCORE: 0-UNK BATHING: Activity did not occur on this shift BATHING - SCORE: 0-UNK DRESSING - UPPER BODY: Activity did not occur on this shift Patient is not dressing in public clothing ARTICLES SCORE Total number of steps: 0 DRESSING - UPPER BODY - SCORE: 0-UNK DRESSING - LOWER BODY: Activity did not occur on this shift Patient is not dressing in public clothing ARTICLES SCORE Total number of steps: 0 DRESSING - LOWER BODY - SCORE: 0-UNK TOILETING: Activity did not occur on this shift TOILETING - SCORE: 0-UNK BLADDER MANAGEMENT: Activity did not occur on this shift BLADDER MANAGEMENT - SCORE: 7-IND BOWEL MANAGEMENT: Activity did not occur on this shift BOWEL MANAGEMENT - SCORE: 7-IND TRANSFERS: BED, CHAIR, WHEELCHAIR: Activity did not occur on this shift TRANSFERS: BED, CHAIR, WHEELCHAIR - SCORE: 0-UNK TRANSFERS: TOILET: Activity did not occur on this shift TRANSFERS: TOILET - SCORE: 0-UNK TRANSFERS: SHOWER: Activity did not occur on this shift TRANSFERS: SHOWER - SCORE: 0-UNK TRANSFERS: TUB: Activity did not occur on this shift TRANSFERS: TUB - SCORE: 0-UNK LOCOMOTION: WALK: Activity did not occur on this shift LOCOMOTION: WALK - SCORE: 0-UNK LOCOMOTION: WHEELCHAIR: LOCOMOTION: WHEELCHAIR - STEP 1: Does the patient need help to go 150 feet in a wheelchair? Yes. LOCOMOTION: WHEELCHAIR - STEP 2: How much assistance does the patient need from the helper? Only supervision, cuing, or coaxing LOCOMOTION: WHEELCHAIR - SCORE: 5-SUP LOCOMOTION: STAIRS: Activity did not occur on this shift LOCOMOTION: STAIRS - SCORE: 0-UNK COMPREHENSION: COMPREHENSION - SCORE: 0-UNK EXPRESSION EXPRESSION - SCORE: 0-UNK SOCIAL INTERACTION: SOCIAL INTERACTION - SCORE: 0-UNK PROBLEM SOLVING: PROBLEM SOLVING - SCORE: 0-UNK MEMORY: MEMORY - SCORE: 0-UNK SIGNATURE PANEL: The following modified sections: Transfers: Bed, Chair, Wheelchair - Score, Transfers: Toilet - Score , Locomotion: Walk - Score, Locomotion: Wheelchair - Score, Locomotion: Stairs - Score were [electron ically] signed by Shayy Oden PTA on Sat Oct 29 2017 14:46:54 T-0500 (Central Daylight Time)
--- NOTE | 2017-10-29 17:16 | FAST ---
SHIFT START DATE/TIME: 10/29/2017 07:00 (CDT) SHIFT END DATE/TIME: 10/29/2017 19:00 (CDT) NAME CHARIS MCKEON DATE OF : 1955 DATE OF ADMISSION: 10/25/2017 14:59 (CDT) PHONE: AGE: 62 N# [id number] GENDER: Female ENCOUNTER PHYSICIAN: Dr. Marino Villar M.D. ADMISSION DIAGNOSIS: - Orthopaedic Disorders 08 - Other Orthopaedic (08.9) Bilateral Tibial Plateau Fracture. EATING: EATING - STEP 1: Does the patient require assistance when eating? Yes. EATING - STEP 2: Does the patient require the assistance of a helper? No, patient only requires an assistive device, O R s/he takes more than reasonable time to eat, OR there is a safety concern, OR s/he requires modifie d food consistency EATING - SCORE: 6-DANIEL GROOMING: Oral care GROOMING - STEP 1: Does the patient require assistance when grooming? Yes. GROOMING - STEP 2: Does the patient require the assistance of a helper? No. The patient only requires an assistive devic e, OR takes more than reasonable time to groom, OR there is a concern for safety as the patient groom s GROOMING - SCORE: 6-DANIEL BATHING: Activity did not occur on this shift BATHING - SCORE: 0-UNK DRESSING - UPPER BODY: Activity did not occur on this shift ARTICLES SCORE Total number of steps: 0 DRESSING - UPPER BODY - SCORE: 0-UNK DRESSING - LOWER BODY: Activity did not occur on this shift ARTICLES SCORE Total number of steps: 0 DRESSING - LOWER BODY - SCORE: 0-UNK TOILETING: TOILETING - STEP 1: Does the patient require assistance with toileting? Yes. TOILETING - STEP 2: Does the patient require the assistance of a helper? Yes. TOILETING - STEP 3: How much assistance does the patient require from the helper? Hands-on assistance from the helper TOILETING - STEP 4: Of the 3 tasks: 1) Adjusting clothing prior to use, 2) Cleansing of perineal area, 3) Adjusting clot toby after use; How many tasks does the patient perform WITHOUT assistance of the helper? No tasks; h oliver performs all three tasks TOILETING - SCORE: 1-DEP BLADDER MANAGEMENT: BLADDER MANAGEMENT - STEP 1: Does the patient control the bladder completely and intentionally without equipment or devices or med ications, and is always continent? No. BLADDER MANAGEMENT - STEP 2: Does the patient require the assistance of a helper? No, patient requires and independently uses an a ssistive device, such as a urinal, bedpan, bedside commode, catheter, absorbent pad, or collecting de vice BLADDER MANAGEMENT - SCORE: 6-DANIEL BOWEL MANAGEMENT: Suppository: [place] positions patient, places a pad, lubricates and inserts the suppository, provides digital stimulation, places patient on bedpan, and takes patient off of bedpan. BOWEL MANAGEMENT - SCORE: 1-DEP TRANSFERS: BED, CHAIR, WHEELCHAIR: Patient requires more than one helper and/or the use of a mechanical lift is utilized TRANSFERS: BED, CHAIR, WHEELCHAIR - SCORE: 1-DEP TRANSFERS: TOILET: Patient requires more than one helper and/or the use of a mechanical lift is utilized TRANSFERS: TOILET - SCORE: 1-DEP TRANSFERS: SHOWER: Activity did not occur on this shift TRANSFERS: SHOWER - SCORE: 0-UNK TRANSFERS: TUB: Activity did not occur on this shift TRANSFERS: TUB - SCORE: 0-UNK LOCOMOTION: WALK: Activity did not occur on this shift LOCOMOTION: WALK - SCORE: 0-UNK LOCOMOTION: WHEELCHAIR: Activity did not occur on this shift LOCOMOTION: WHEELCHAIR - SCORE: 0-UNK COMPREHENSION: COMPREHENSION - SCORE: 0-UNK EXPRESSION EXPRESSION - SCORE: 0-UNK SOCIAL INTERACTION: SOCIAL INTERACTION - SCORE: 0-UNK PROBLEM SOLVING: PROBLEM SOLVING - SCORE: 0-UNK MEMORY: MEMORY - SCORE: 0-UNK SIGNATURE PANEL: The following modified sections: Eating - Score, Grooming - Score, Bathing - Score, Dressing - Upper Body - Score, Dressing - Lower Body - Score, Toileting - Score, Bowel Management - Score, Bladder Man agement - Score, Transfers: Bed, Chair, Wheelchair - Score, Transfers: Toilet - Score, Transfers: Charlene wer - Score, Transfers: Tub - Score, Locomotion: Walk - Score, Locomotion: Wheelchair - Score, Compre hension - Score, Expression - Score, Social Interaction - Score, Problem Solving - Score, Memory - Sc ore were [electronically] signed by Riccardo Brunner on Sat Oct 29 2017 16:16:37 GMT-0500 (Central Daylight Time)
--- NOTE | 2017-10-29 17:19 | PN ---
Date of Progress Note: 10/29/2017 Subjective: The patient is seen at the bedside. No overnight events reported. The patient feels we ll. Denies any fevers, chills, chest pain, shortness of breath, nausea, vomiting, or diarrhea. Mandujano catheter was removed earlier today, the patient is undergoing voiding trials. Mandujano catheter w as removed 2 days prior and then was reinserted secondary to retention. Objective: Vital Signs: Blood pressure is 134/63, pulse 73, afebrile. Blood pressure trend had bee n in the 140s to 160s and then over the past 24 hours decreased into the 130s to 150s range. General: No acute distress. Drowsy. Heart: Regular rate and rhythm. No murmurs, rubs, gallops. Lungs: Clear to auscultation bilaterally. Abdomen: Soft, nontender, nondistended. Positive bowel sounds x4. Extremities: Bilateral lower extremities in immobilizer. Left immobilizer was opened and the leg wa s looked at. There is edema. There is ecchymosis underneath the dressing. There is slight oozing o f blood onto the dressing. The girth of the left lower extremity is larger than that of the right lo wer extremity. Laboratory Data: CBC; WBC 5.8, hemoglobin 8.2, hematocrit 24.2, platelets 275. H and H history were 10./. Serum chemistry; sodium 135, potassium 5.7, chloride 98, CO2 31, BUN 68, creatinine 2.55, glucose 98, phosphorus 4.7, magnesium 1.5, albumin is 2.2. Current Medications: Reviewed. Of note, amlodipine 10 daily, carvedilol 25 b.i.d., vitamin D 5000, iron 325 daily, and hydralazine 100 t.i.d., Imdur 30 b.i.d. Remainder of medications were reviewed. Also the patient is on Flomax 0.4, which was started yesterday secondary to her urinary retention. Impression: 1.Acute kidney injury on chronic kidney disease. 2.Hyperkalemia. 3.Anemia likely in the setting of blood loss. 4.Bilateral tibial plateau fractures with open reduction and internal fixation on the left. 5.Hypertension. 6.Urinary retention. Plan: Renal function is labile, it was improving up until yesterday. This is multifactorial. The p atient did have acute anemia. The patient also had relative hypotension with blood pressures, which had a 50-point gradient over the past several days. The amlodipine will be cut into half the dose to allow the blood pressure to rise. The patient's H and H are also dropping, this is likely secondary to bleed in the postoperative setting and likely in the leg. I would recommend transfusing as neede d. Orthopedic followup also recommended. Rule out any evidence of GI bleed. For patient's hyperkal emia, she was given Kayexalate. Diet was changed to a renal diet. The patient's Ensure will be berger ged to [place]. I have also ordered electrolytes to be ordered at 5 p.m. today and further management after labs return. PARVEZ Voice ID: [id number] Report ID: [id number]
[2017-10-29] MEDS: NEPRO SHAKE 237 ML CAN PO SCH (20:00)
[2017-10-29] MEDS: TRAZODONE 150 MG TAB PO SCH (20:42)
[2017-10-29] MEDS: TAMSULOSIN 0.4 MG SR CAP PO SCH (20:42)
[2017-10-29] MEDS: MIRTAZAPINE 15 MG TAB PO SCH (20:42)
--- NOTE | 2017-10-30 02:44 | FAST ---
SHIFT START DATE/TIME: 10/29/2017 19:00 (CDT) SHIFT END DATE/TIME: 10/30/2017 07:00 (CDT) NAME CHARIS MCKEON DATE OF : 1955 DATE OF ADMISSION: 10/25/2017 14:59 (CDT) PHONE: AGE: 62 N# [id number] GENDER: Female ENCOUNTER PHYSICIAN: Dr. Marino Villar M.D. ADMISSION DIAGNOSIS: - Orthopaedic Disorders 08 - Other Orthopaedic (08.9) Bilateral Tibial Plateau Fracture. EATING: Activity did not occur on this shift EATING - SCORE: 0-UNK GROOMING: Activity did not occur on this shift GROOMING - SCORE: 0-UNK BATHING: Activity did not occur on this shift BATHING - SCORE: 0-UNK DRESSING - UPPER BODY: Activity did not occur on this shift ARTICLES SCORE Total number of steps: 0 DRESSING - UPPER BODY - SCORE: 0-UNK DRESSING - LOWER BODY: Activity did not occur on this shift ARTICLES SCORE Total number of steps: 0 DRESSING - LOWER BODY - SCORE: 0-UNK TOILETING: TOILETING - STEP 1: Does the patient require assistance with toileting? Yes. TOILETING - STEP 2: Does the patient require the assistance of a helper? Yes. TOILETING - STEP 3: How much assistance does the patient require from the helper? Hands-on assistance from the helper TOILETING - STEP 4: Of the 3 tasks: 1) Adjusting clothing prior to use, 2) Cleansing of perineal area, 3) Adjusting clot toby after use; How many tasks does the patient perform WITHOUT assistance of the helper? No tasks; h elper performs all three tasks TOILETING - SCORE: 1-DEP BLADDER MANAGEMENT: Patient depends entirely on [place] when using bedpan [helper rolls patient onto side / side-lying pos ition; positions bedpan; assists patient to roll onto bedpan; holds bedpan in place; assists patient off bedpan]. BLADDER MANAGEMENT - SCORE: 1-DEP BOWEL MANAGEMENT: Activity did not occur on this shift BOWEL MANAGEMENT - SCORE: 7-IND TRANSFERS: BED, CHAIR, WHEELCHAIR: Activity did not occur on this shift TRANSFERS: BED, CHAIR, WHEELCHAIR - SCORE: 0-UNK TRANSFERS: TOILET: Activity did not occur on this shift TRANSFERS: TOILET - SCORE: 0-UNK TRANSFERS: SHOWER: Activity did not occur on this shift TRANSFERS: SHOWER - SCORE: 0-UNK TRANSFERS: TUB: Activity did not occur on this shift TRANSFERS: TUB - SCORE: 0-UNK LOCOMOTION: WALK: Activity did not occur on this shift LOCOMOTION: WALK - SCORE: 0-UNK LOCOMOTION: WHEELCHAIR: Activity did not occur on this shift LOCOMOTION: WHEELCHAIR - SCORE: 0-UNK COMPREHENSION: COMPREHENSION - STEP 1: Does the patient require help to understand complex and abstract ideas (such as current events, finan pari, discharge planning, medical issues, relationships, etc)? No. COMPREHENSION - STEP 2: Does the patient need extra time, require an assistive device (such as glasses, hearing aids, or an a ugmentative communication system), OR does s/he have mild difficulty expressing complex and abstract ideas (including mild dysarthria or mild word-finding problems)? Yes. COMPREHENSION - SCORE: 6-DANIEL EXPRESSION EXPRESSION - STEP 1: Does the patient require help expressing complex and abstract ideas (such as current events, finances , discharge planning, medical issues, relationships, etc)? No. EXPRESSION - STEP 2: Does the patient need extra time, require an assistive device (such as augmentive communication syste m or a communication board), OR does s/he have mild difficulty expressing complex and abstract ideas (including mild dysarthria or mild word-find problems)? Yes. EXPRESSION - SCORE: 6-DANIEL SOCIAL INTERACTION: SOCIAL INTERACTION - STEP 1: Does the patient require a helper to interact with others in social and therapeutic situations? No. SOCIAL INTERACTION - STEP 2: Does the patient need extra time in social situations, OR does s/he interact with staff, other patien ts, and family members ONLY in structured environments, OR does s/he require medication for social in teraction? Yes, patient requires medication for social interaction SOCIAL INTERACTION - SCORE: 6-DANIEL PROBLEM SOLVING: PROBLEM SOLVING - STEP 1: Does the patient need help to solve complex problems such as managing a checking account or confronti ng interpersonal problems? No. PROBLEM SOLVING - STEP 2: Does the patient require extra time to make decisions or solve problems, OR does s/he have slight dif ficulty reading, initiating, or self-correcting in unfamiliar situations? Yes, patient needs extra ti me. PROBLEM SOLVING - SCORE: 6-DANIEL MEMORY: MEMORY - STEP 1: Does the patient need help to remember frequently encountered people, daily routines, and executing r equests? No. MEMORY - STEP 2: Does the patient have slight difficulty recognizing frequently encountered people, daily routines, or executing requests without the need for repetition or using self-initiated or environmental cues to remember? Yes. MEMORY - SCORE: 6-DANIEL SIGNATURE PANEL: The following modified sections: Eating - Score, Grooming - Score, Bathing - Score, Dressing - Upper Body - Score, Dressing - Lower Body - Score, Toileting - Score, Bladder Management - Score, Bowel Man agement - Score, Transfers: Bed, Chair, Wheelchair - Score, Transfers: Toilet - Score, Transfers: Charlene wer - Score, Transfers: Tub - Score, Locomotion: Walk - Score, Locomotion: Wheelchair - Score, Compre hension - Score, Expression - Score, Social Interaction - Score, Problem Solving - Score, Memory - Sc ore were [electronically] signed by Bri Walton RN on TueOct 30 2017 01:44:00 [facility]-0500 ([facility] Time)
[2017-10-30] MEDS: CARVEDILOL 25 MG TAB PO SCH ×2 (05:25→17:17)
[2017-10-30 05:55] LABS: Urine Appearance CLOUDY; Urine Bilirubin NEGATIVE (NEG); Urine Blood NEGATIVE (NEG); Urine Color YELLOW; Urine Glucose NEGATIVE (NEG); Urine Protein NEGATIVE (NEG); Urine Urobilinogen 0.2 mg/dL (0.2-1.0)
[2017-10-30 06:01] LABS: Absolute Lymphocytes (CBC) 0.8 K/uL (0.7-4.9); Absolute Monocytes 0.6 K/uL (0.1-1.3); Absolute Neutrophil 3.7 K/uL (1.8-8.0); Basophils % 1.1 % (0-1.3); Eosinophils % 5.7 % (0-4.4); Hematocrit 24.6 % (36.0-45.0); Lymphocytes % 14.8 % (15.3-44.8); MCH 29.4 pg (27.0-35.0); MCV 87.1 fL (80-100); MPV 7.2 fL (7.6-11.3); Monocytes % 11.3 % (3.3-12.3); RBC Red Blood Cell Count 2.82 M/uL (3.86-4.86)
[2017-10-30 06:04] LABS: Urine Bacteria LOADED /HPF (<20); Urine Culture Reflex Order REFLEXED; Urine RBC <5 /HPF (NONE SEEN)
[2017-10-30] MEDS: ENOXAPARIN 30 MG/0.3 ML SQ SCH (07:41)
[2017-10-30] MEDS: ASPIRIN 81 MG CHEWABLE TABLET PO SCH (08:00)
[2017-10-30] MEDS: DOCUSATE NA 100 MG CAP PO SCH ×2 (08:00→20:00)
[2017-10-30] MEDS: GABAPENTIN 100 MG CAP PO SCH ×2 (08:00→21:05)
[2017-10-30] MEDS: NEPRO SHAKE 237 ML CAN PO SCH ×2 (08:00→20:00)
[2017-10-30] MEDS: CETIRIZINE HCL 5 MG TABLET PO SCH (08:00)
[2017-10-30] MEDS: EPOETIN ALFA 10,000 UNIT/ML SQ SCH (08:03)
[2017-10-30] MEDS: LACTOBACILLUS/ACIDOPHILUS TAB PO SCH (08:07)
[2017-10-30] MEDS: VITAMIN D 5,000 UNIT CAP PO SCH (08:07)
[2017-10-30] MEDS: FERROUS SULFATE 325 MG TAB PO SCH (08:07)
[2017-10-30] MEDS: ISOSORBIDE MONO SR 30 MG TAB PO SCH ×2 (08:07→21:05)
[2017-10-30] MEDS: PANTOPRAZOLE 40MG TABLET PO SCH (08:07)
[2017-10-30] MEDS: FE SULF/FA/VIT B COMP & C TAB PO SCH (08:07)
[2017-10-30] MEDS: TRAMADOL HCL 50 MG TAB PO PRN ×2 (08:07→21:06)
[2017-10-30] MEDS: HYDRALAZINE HCL 25 MG TABLET PO SCH ×3 (08:08→21:05)
[2017-10-30] MEDS: AMLODIPINE 5 MG TAB PO SCH (08:08)
[2017-10-30] MEDS: CALCITROL 0.25 MCG CAP PO SCH (08:09)
[2017-10-30] MEDS: GABAPENTIN 300 MG CAP PO SCH ×2 (08:09→21:05)
[2017-10-30] MEDS: MAGNESIUM OXIDE 400 MG TAB PO SCH (08:09)
[2017-10-30] MEDS: PROMOD 30 ML DOSE PO SCH ×2 (08:10→21:14)
--- NOTE | 2017-10-30 14:12 | FAST ---
SHIFT START DATE/TIME: 10/30/2017 07:00 (CDT) SHIFT END DATE/TIME: 10/30/2017 19:00 (CDT) NAME CHARIS MCKEON DATE OF : 1955 DATE OF ADMISSION: 10/25/2017 14:59 (CDT) PHONE: AGE: 62 N# [id number] GENDER: Female ENCOUNTER PHYSICIAN: Dr. Marino Villar M.D. ADMISSION DIAGNOSIS: - Orthopaedic Disorders 08 - Other Orthopaedic (08.9) Bilateral Tibial Plateau Fracture. EATING: EATING - STEP 1: Does the patient require assistance when eating? Yes. EATING - STEP 2: Does the patient require the assistance of a helper? No, patient only requires an assistive device, O R s/he takes more than reasonable time to eat, OR there is a safety concern, OR s/he requires modifie d food consistency EATING - SCORE: 6-DANIEL GROOMING: Oral care GROOMING - STEP 1: Does the patient require assistance when grooming? Yes. GROOMING - STEP 2: Does the patient require the assistance of a helper? No. The patient only requires an assistive devic e, OR takes more than reasonable time to groom, OR there is a concern for safety as the patient groom s GROOMING - SCORE: 6-DANIEL BATHING: Activity did not occur on this shift BATHING - SCORE: 0-UNK DRESSING - UPPER BODY: Activity did not occur on this shift ARTICLES SCORE Total number of steps: 0 DRESSING - UPPER BODY - SCORE: 0-UNK DRESSING - LOWER BODY: Activity did not occur on this shift ARTICLES SCORE Total number of steps: 0 DRESSING - LOWER BODY - SCORE: 0-UNK TOILETING: TOILETING - STEP 1: Does the patient require assistance with toileting? Yes. TOILETING - STEP 2: Does the patient require the assistance of a helper? Yes. TOILETING - STEP 3: How much assistance does the patient require from the helper? Hands-on assistance from the helper TOILETING - STEP 4: Of the 3 tasks: 1) Adjusting clothing prior to use, 2) Cleansing of perineal area, 3) Adjusting clot toby after use; How many tasks does the patient perform WITHOUT assistance of the helper? No tasks; h oliver performs all three tasks TOILETING - SCORE: 1-DEP BLADDER MANAGEMENT: BLADDER MANAGEMENT - STEP 1: Does the patient control the bladder completely and intentionally without equipment or devices or med ications, and is always continent? Yes. BLADDER MANAGEMENT - SCORE: 7-IND BOWEL MANAGEMENT: BOWEL MANAGEMENT - STEP 1: Does the patient control bowels completely and intentionally without equipment devices or medications AND is always continent? No. BOWEL MANAGEMENT - STEP 2: Does the patient require the assistance of a helper? No, patient requires and manages independently a n assistive device such as a bedpan, bedside commode, absorbent pad, incontinent device, or collectin g device BOWEL MANAGEMENT - SCORE: 6-DANIEL TRANSFERS: BED, CHAIR, WHEELCHAIR: Patient requires more than one helper and/or the use of a mechanical lift is utilized TRANSFERS: BED, CHAIR, WHEELCHAIR - SCORE: 1-DEP TRANSFERS: TOILET: Patient requires more than one helper and/or the use of a mechanical lift is utilized TRANSFERS: TOILET - SCORE: 1-DEP TRANSFERS: SHOWER: Activity did not occur on this shift TRANSFERS: SHOWER - SCORE: 0-UNK TRANSFERS: TUB: Activity did not occur on this shift TRANSFERS: TUB - SCORE: 0-UNK LOCOMOTION: WALK: Activity did not occur on this shift LOCOMOTION: WALK - SCORE: 0-UNK LOCOMOTION: WHEELCHAIR: Activity did not occur on this shift LOCOMOTION: WHEELCHAIR - SCORE: 0-UNK COMPREHENSION: COMPREHENSION - SCORE: 0-UNK EXPRESSION EXPRESSION - SCORE: 0-UNK SOCIAL INTERACTION: SOCIAL INTERACTION - SCORE: 0-UNK PROBLEM SOLVING: PROBLEM SOLVING - SCORE: 0-UNK MEMORY: MEMORY - SCORE: 0-UNK SIGNATURE PANEL: The following modified sections: Eating - Score, Grooming - Score, Bathing - Score, Dressing - Upper Body - Score, Dressing - Lower Body - Score, Toileting - Score, Bladder Management - Score, Bowel Man agement - Score, Transfers: Bed, Chair, Wheelchair - Score, Transfers: Toilet - Score, Transfers: Charlene wer - Score, Transfers: Tub - Score, Locomotion: Walk - Score, Locomotion: Wheelchair - Score, Compre hension - Score, Expression - Score, Social Interaction - Score, Problem Solving - Score, Memory - Sc ore were [electronically] signed by Riccardo Brunner on TueOct 30 2017 13:11:56 GMT-0500 (Central Daylight Time)
[2017-10-30] MEDS: MIRTAZAPINE 15 MG TAB PO SCH (21:05)
[2017-10-30] MEDS: TRAZODONE 150 MG TAB PO SCH (21:05)
[2017-10-30] MEDS: TAMSULOSIN 0.4 MG SR CAP PO SCH (21:05)
--- NOTE | 2017-10-31 03:28 | FAST ---
SHIFT START DATE/TIME: 10/30/2017 19:00 (CDT) SHIFT END DATE/TIME: 10/31/2017 07:00 (CDT) NAME CHARIS MCKEON DATE OF : 1955 DATE OF ADMISSION: 10/25/2017 14:59 (CDT) PHONE: AGE: 62 N# [id number] GENDER: Female ENCOUNTER PHYSICIAN: Dr. Marino Villar M.D. ADMISSION DIAGNOSIS: - Orthopaedic Disorders 08 - Other Orthopaedic (08.9) Bilateral Tibial Plateau Fracture. EATING: Activity did not occur on this shift EATING - SCORE: 0-UNK GROOMING: Oral care GROOMING - STEP 1: Does the patient require assistance when grooming? Yes. GROOMING - STEP 2: Does the patient require the assistance of a helper? Yes. GROOMING - STEP 3: How much assistance does the patient require from the helper? Only prior equipment preparation/set up from the helper GROOMING - SCORE: 5-SUP BATHING: Activity did not occur on this shift BATHING - SCORE: 0-UNK DRESSING - UPPER BODY: Activity did not occur on this shift ARTICLES SCORE Total number of steps: 0 DRESSING - UPPER BODY - SCORE: 0-UNK DRESSING - LOWER BODY: Activity did not occur on this shift ARTICLES SCORE Total number of steps: 0 DRESSING - LOWER BODY - SCORE: 0-UNK TOILETING: TOILETING - STEP 1: Does the patient require assistance with toileting? Yes. TOILETING - STEP 2: Does the patient require the assistance of a helper? Yes. TOILETING - STEP 3: How much assistance does the patient require from the helper? Hands-on assistance from the helper TOILETING - STEP 4: Of the 3 tasks: 1) Adjusting clothing prior to use, 2) Cleansing of perineal area, 3) Adjusting clot toby after use; How many tasks does the patient perform WITHOUT assistance of the helper? One task TOILETING - SCORE: 2-MAX BLADDER MANAGEMENT: Patient depends entirely on [place] when using bedpan [helper rolls patient onto side / side-lying pos ition; positions bedpan; assists patient to roll onto bedpan; holds bedpan in place; assists patient off bedpan]. BLADDER MANAGEMENT - SCORE: 1-DEP BOWEL MANAGEMENT: Activity did not occur on this shift BOWEL MANAGEMENT - SCORE: 7-IND TRANSFERS: BED, CHAIR, WHEELCHAIR: Activity did not occur on this shift TRANSFERS: BED, CHAIR, WHEELCHAIR - SCORE: 0-UNK TRANSFERS: TOILET: Activity did not occur on this shift TRANSFERS: TOILET - SCORE: 0-UNK TRANSFERS: SHOWER: Activity did not occur on this shift TRANSFERS: SHOWER - SCORE: 0-UNK TRANSFERS: TUB: Activity did not occur on this shift TRANSFERS: TUB - SCORE: 0-UNK LOCOMOTION: WALK: Activity did not occur on this shift LOCOMOTION: WALK - SCORE: 0-UNK LOCOMOTION: WHEELCHAIR: Activity did not occur on this shift LOCOMOTION: WHEELCHAIR - SCORE: 0-UNK COMPREHENSION: COMPREHENSION - STEP 1: Does the patient require help to understand complex and abstract ideas (such as current events, finan pari, discharge planning, medical issues, relationships, etc)? No. COMPREHENSION - STEP 2: Does the patient need extra time, require an assistive device (such as glasses, hearing aids, or an a ugmentative communication system), OR does s/he have mild difficulty expressing complex and abstract ideas (including mild dysarthria or mild word-finding problems)? Yes. COMPREHENSION - SCORE: 6-DANIEL EXPRESSION EXPRESSION - STEP 1: Does the patient require help expressing complex and abstract ideas (such as current events, finances , discharge planning, medical issues, relationships, etc)? No. EXPRESSION - STEP 2: Does the patient need extra time, require an assistive device (such as augmentive communication syste m or a communication board), OR does s/he have mild difficulty expressing complex and abstract ideas (including mild dysarthria or mild word-find problems)? Yes. EXPRESSION - SCORE: 6-DANIEL SOCIAL INTERACTION: SOCIAL INTERACTION - STEP 1: Does the patient require a helper to interact with others in social and therapeutic situations? No. SOCIAL INTERACTION - STEP 2: Does the patient need extra time in social situations, OR does s/he interact with staff, other patien ts, and family members ONLY in structured environments, OR does s/he require medication for social in teraction? Yes, patient requires medication for social interaction SOCIAL INTERACTION - SCORE: 6-DANIEL PROBLEM SOLVING: PROBLEM SOLVING - STEP 1: Does the patient need help to solve complex problems such as managing a checking account or confronti ng interpersonal problems? No. PROBLEM SOLVING - STEP 2: Does the patient require extra time to make decisions or solve problems, OR does s/he have slight dif ficulty reading, initiating, or self-correcting in unfamiliar situations? Yes, patient needs extra ti me. PROBLEM SOLVING - SCORE: 6-DANIEL MEMORY: MEMORY - STEP 1: Does the patient need help to remember frequently encountered people, daily routines, and executing r equests? No. MEMORY - STEP 2: Does the patient have slight difficulty recognizing frequently encountered people, daily routines, or executing requests without the need for repetition or using self-initiated or environmental cues to remember? Yes. MEMORY - SCORE: 6-DANIEL SIGNATURE PANEL: The following modified sections: Eating - Score, Grooming - Score, Bathing - Score, Dressing - Upper Body - Score, Dressing - Lower Body - Score, Toileting - Score, Bladder Management - Score, Bowel Man agement - Score, Transfers: Bed, Chair, Wheelchair - Score, Transfers: Toilet - Score, Transfers: Charlene wer - Score, Transfers: Tub - Score, Locomotion: Walk - Score, Locomotion: Wheelchair - Score, Compre hension - Score, Expression - Score, Social Interaction - Score, Problem Solving - Score, Memory - Sc ore were [electronically] signed by Bri Walton RN on TueOct 31 2017 02:28:48 T-0500 (Formerly [facility] Time)
[2017-10-31] MEDS: CARVEDILOL 25 MG TAB PO SCH ×2 (05:26→17:24)
[2017-10-31] MEDS: PROMOD 30 ML DOSE PO SCH ×2 (08:00→19:52)
[2017-10-31] MEDS: ENOXAPARIN 30 MG/0.3 ML SQ SCH (08:00)
[2017-10-31] MEDS: NEPRO SHAKE 237 ML CAN PO SCH ×2 (08:00→19:52)
[2017-10-31] MEDS: GABAPENTIN 100 MG CAP PO SCH (08:00)
[2017-10-31] MEDS: EPOETIN ALFA 10,000 UNIT/ML SQ SCH (08:00)
[2017-10-31] MEDS: CALCITROL 0.25 MCG CAP PO SCH (09:26)
[2017-10-31] MEDS: ASPIRIN 81 MG CHEWABLE TABLET PO SCH (09:26)
[2017-10-31] MEDS: FE SULF/FA/VIT B COMP & C TAB PO SCH (09:26)
[2017-10-31] MEDS: VITAMIN D 5,000 UNIT CAP PO SCH (09:26)
[2017-10-31] MEDS: PANTOPRAZOLE 40MG TABLET PO SCH (09:26)
[2017-10-31] MEDS: FERROUS SULFATE 325 MG TAB PO SCH (09:26)
[2017-10-31] MEDS: GABAPENTIN 300 MG CAP PO SCH ×2 (09:26→19:51)
[2017-10-31] MEDS: AMLODIPINE 5 MG TAB PO SCH (09:27)
[2017-10-31] MEDS: DOCUSATE NA 100 MG CAP PO SCH ×2 (09:27→19:50)
[2017-10-31] MEDS: TRAMADOL HCL 50 MG TAB PO PRN ×2 (09:27→19:51)
[2017-10-31] MEDS: HYDRALAZINE HCL 25 MG TABLET PO SCH ×3 (09:27→21:25)
[2017-10-31] MEDS: MAGNESIUM OXIDE 400 MG TAB PO SCH (09:27)
[2017-10-31] MEDS: LACTOBACILLUS/ACIDOPHILUS TAB PO SCH (09:27)
[2017-10-31] MEDS: ISOSORBIDE MONO SR 30 MG TAB PO SCH ×2 (09:27→19:52)
[2017-10-31] MEDS: CETIRIZINE HCL 5 MG TABLET PO SCH (09:28)
--- NOTE | 2017-10-31 16:47 | FAST ---
ENCOUNTER DATE AND TIME: 10/31/2017 08:00 (CDT) NAME CHARIS MCKEON DATE OF : 1955 DATE OF ADMISSION: 10/25/2017 14:59 (CDT) PHONE: AGE: 62 N# [id number] GENDER: Female ENCOUNTER PHYSICIAN: Dr. Marino Villar M.D. ADMISSION DIAGNOSIS: - Orthopaedic Disorders 08 - Other Orthopaedic (08.9) Bilateral Tibial Plateau Fracture. EATING: Activity did not occur on this shift EATING - SCORE: 0-UNK GROOMING: Activity did not occur on this shift GROOMING - SCORE: 0-UNK BATHING: Activity did not occur on this shift BATHING - SCORE: 0-UNK DRESSING - UPPER BODY: Activity did not occur on this shift Patient is not dressing in public clothing ARTICLES SCORE Total number of steps: 0 DRESSING - UPPER BODY - SCORE: 0-UNK DRESSING - LOWER BODY: Activity did not occur on this shift Patient is not dressing in public clothing ARTICLES SCORE Total number of steps: 0 DRESSING - LOWER BODY - SCORE: 0-UNK TOILETING: Activity did not occur on this shift TOILETING - SCORE: 0-UNK BLADDER MANAGEMENT: Activity did not occur on this shift BLADDER MANAGEMENT - SCORE: 7-IND BOWEL MANAGEMENT: Activity did not occur on this shift BOWEL MANAGEMENT - SCORE: 7-IND TRANSFERS: BED, CHAIR, WHEELCHAIR: TRANSFERS: BED, CHAIR, WHEELCHAIR - STEP 1: Does the patient require assistance with bed, chair, or wheelchair transfers? Yes. TRANSFERS: BED, CHAIR, WHEELCHAIR - STEP 2: Does the patient require the assistance of a helper? Yes. TRANSFERS: BED, CHAIR, WHEELCHAIR - STEP 3: How much assistance does the patient require from the helper? Steadying/guiding assistance TRANSFERS: BED, CHAIR, WHEELCHAIR - SCORE: 4-MIN TRANSFERS: TOILET: Activity did not occur on this shift TRANSFERS: TOILET - SCORE: 0-UNK TRANSFERS: SHOWER: Activity did not occur on this shift TRANSFERS: SHOWER - SCORE: 0-UNK TRANSFERS: TUB: Activity did not occur on this shift TRANSFERS: TUB - SCORE: 0-UNK LOCOMOTION: WALK: Activity did not occur on this shift LOCOMOTION: WALK - SCORE: 0-UNK LOCOMOTION: WHEELCHAIR: LOCOMOTION: WHEELCHAIR - STEP 1: Does the patient need help to go 150 feet in a wheelchair? No. LOCOMOTION: WHEELCHAIR - SCORE: 6-DANIEL LOCOMOTION: STAIRS: Activity did not occur on this shift LOCOMOTION: STAIRS - SCORE: 0-UNK COMPREHENSION: COMPREHENSION - SCORE: 0-UNK EXPRESSION EXPRESSION - SCORE: 0-UNK SOCIAL INTERACTION: SOCIAL INTERACTION - SCORE: 0-UNK PROBLEM SOLVING: PROBLEM SOLVING - SCORE: 0-UNK MEMORY: MEMORY - SCORE: 0-UNK SIGNATURE PANEL: The following modified sections: Transfers: Bed, Chair, Wheelchair - Score, Transfers: Toilet - Score , Locomotion: Walk - Score, Locomotion: Wheelchair - Score, Locomotion: Stairs - Score were [electron ically] signed by Dereje Fields PT on TueOct 31 2017 15:47:32 T-0500 (Central Daylight Time)
--- NOTE | 2017-10-31 18:35 | FAST ---
ENCOUNTER DATE AND TIME: 10/31/2017 08:00 (CDT) NAME CHARIS MCKEON DATE OF : 1955 DATE OF ADMISSION: 10/25/2017 14:59 (CDT) PHONE: AGE: 62 N# [id number] GENDER: Female ENCOUNTER PHYSICIAN: Dr. Marino Villar M.D. ADMISSION DIAGNOSIS: - Orthopaedic Disorders 08 - Other Orthopaedic (08.9) Bilateral Tibial Plateau Fracture. EATING: Activity did not occur on this shift EATING - SCORE: 0-UNK GROOMING: Activity did not occur on this shift GROOMING - SCORE: 0-UNK BATHING: Activity did not occur on this shift BATHING - SCORE: 0-UNK DRESSING - UPPER BODY: Activity did not occur on this shift Patient is not dressing in public clothing ARTICLES SCORE Total number of steps: 0 DRESSING - UPPER BODY - SCORE: 0-UNK DRESSING - LOWER BODY: Activity did not occur on this shift Patient is not dressing in public clothing ARTICLES SCORE Total number of steps: 0 DRESSING - LOWER BODY - SCORE: 0-UNK TOILETING: Activity did not occur on this shift TOILETING - SCORE: 0-UNK BLADDER MANAGEMENT: Activity did not occur on this shift BLADDER MANAGEMENT - SCORE: 7-IND BOWEL MANAGEMENT: Activity did not occur on this shift BOWEL MANAGEMENT - SCORE: 7-IND TRANSFERS: BED, CHAIR, WHEELCHAIR: Activity did not occur on this shift TRANSFERS: BED, CHAIR, WHEELCHAIR - SCORE: 0-UNK TRANSFERS: TOILET: Activity did not occur on this shift TRANSFERS: TOILET - SCORE: 0-UNK TRANSFERS: SHOWER: Activity did not occur on this shift TRANSFERS: SHOWER - SCORE: 0-UNK TRANSFERS: TUB: Activity did not occur on this shift TRANSFERS: TUB - SCORE: 0-UNK LOCOMOTION: WALK: Activity did not occur on this shift LOCOMOTION: WALK - SCORE: 0-UNK LOCOMOTION: WHEELCHAIR: Activity did not occur on this shift LOCOMOTION: WHEELCHAIR - SCORE: 0-UNK LOCOMOTION: STAIRS: Activity did not occur on this shift LOCOMOTION: STAIRS - SCORE: 0-UNK COMPREHENSION: COMPREHENSION - STEP 1: Does the patient require help to understand complex and abstract ideas (such as current events, finan pari, discharge planning, medical issues, relationships, etc)? No. COMPREHENSION - STEP 2: Does the patient need extra time, require an assistive device (such as glasses, hearing aids, or an a ugmentative communication system), OR does s/he have mild difficulty expressing complex and abstract ideas (including mild dysarthria or mild word-finding problems)? Yes. COMPREHENSION - SCORE: 6-DANIEL EXPRESSION EXPRESSION - STEP 1: Does the patient require help expressing complex and abstract ideas (such as current events, finances , discharge planning, medical issues, relationships, etc)? No. EXPRESSION - STEP 2: Does the patient need extra time, require an assistive device (such as augmentive communication syste m or a communication board), OR does s/he have mild difficulty expressing complex and abstract ideas (including mild dysarthria or mild word-find problems)? No. EXPRESSION - SCORE: 7-IND SOCIAL INTERACTION: SOCIAL INTERACTION - STEP 1: Does the patient require a helper to interact with others in social and therapeutic situations? No. SOCIAL INTERACTION - STEP 2: Does the patient need extra time in social situations, OR does s/he interact with staff, other patien ts, and family members ONLY in structured environments, OR does s/he require medication for social in teraction? No. SOCIAL INTERACTION - SCORE: 7-IND PROBLEM SOLVING: PROBLEM SOLVING - STEP 1: Does the patient need help to solve complex problems such as managing a checking account or confronti ng interpersonal problems? No. PROBLEM SOLVING - STEP 2: Does the patient require extra time to make decisions or solve problems, OR does s/he have slight dif ficulty reading, initiating, or self-correcting in unfamiliar situations? Yes, patient needs extra ti me. PROBLEM SOLVING - SCORE: 6-DANIEL MEMORY: MEMORY - STEP 1: Does the patient need help to remember frequently encountered people, daily routines, and executing r equests? Yes. MEMORY - STEP 2: How often does the patient need help to remember frequently encountered people, daily routines, and e xecuting requests? Less than 10% of the time MEMORY - SCORE: 5-SUP SIGNATURE PANEL: The following modified sections: Comprehension - Score, Expression - Score, Social Interaction - Scor e, Problem Solving - Score, Memory - Score were [electronically] signed by EDGARD Nino on Tue 17:35:11 T-0500 (Central Daylight Time)
--- NOTE | 2017-10-31 18:42 | R.PN ---
ENCOUNTER DATE AND TIME: 10/31/2017 17:40 (CDT) NAME CHARIS MCKEON DATE OF : 1955 DATE OF ADMISSION: 10/25/2017 14:59 (CDT) Bilateral Tibial Plateau FractureCHIEF COMPLAINT: Tibial plateau fractures bilaterally SUBJECTIVE: Pt denied any Shortness of Breath. Pt denied any depression. Non-weight bearing on both lower extremities. Therapeutic exercises performed with lower and upper ex tremities. Bed mobility and transfers performed with minimum to moderate assistance. Propelled wheelc hair 250' with modified independence. VITAL SIGNS Temperature: 97.8 F SBP/DBP: 139/63 Pulse: 72 Resp: 14 MEDICATION ALLERGIES: Clindamycin Sulfamethoxazole Trimethoprim Clonidine Losartan ENVIRONMENTAL ALLERGIES: None Known - Substance Allergies None Known - Other Allergies None Known NURSING: - Shower allowing shower - Skin care per protocol PRECAUTIONS: - Weight Bearing Precaution NWB both LE - Fall Precaution Bed and chair alarm ACTIVITIES OOB only with supervision THERAPIES: - Occupational Therapy Evaluate and Treat. - Physical Therapy Evaluate and Treat. PHYSICAL EXAM - Gen Alert and awake Lying in bed No apparent distress Oriented to: person, time, and place - Skin No skin breakdown. Normacephalic - Eyes No abnormalities - ENMT No abnormalities - Neck No abnormalities - CVS RRR - Chest Clear - Abd Soft - GI Non distended Deferred - No abnormalities - Ext No significant edema - MSK Unremarkable - Neuro No focal deficits - Psych No abnormalities ASSESSMENT: Pt. is a 62 yo Right-handed white female.On 10/17/2017 she was admitted to [facility] with diagnosis Bilateral Tibial Plateau Fracture.Her impairment category is Orthopaedic Disord ers 08 - Other Orthopaedic (08.9).Pre-morbidly, Pt. was independent/mod-I in Sphincter Control, Castañeda sfers Control, Communication, Social Cognition, Self-Care, and Locomotion; and she had good Sphincter Control.Currently, she has deficits of Endurance, Safety Awareness, Transfers Control, Balance, Self -Care, and Locomotion.Pt. is now referred to [facility] for acute in-patient r ehabilitation in order to maximize patient's functional independence in activities of daily living, s trength, ROM, and mobility.- Rehab Goal Patient has realistic goal of being discharged at assistance level 6-Nestor to reside at Home with Fam ani/Relatives. MDM/PLAN: - Physical Therapy Decreased range of motion - to improve, our physical therapists will perform initial evaluation of p t's status upon admission and devise an individualized program for increasing patient's Range of [place] on. Gait dysfunction - to improve, our physical therapists will perform initial evaluation of pt's statu s upon admission and devise an individualized program for Gait Training, and Wheel Chair mobility Inability to transfer - to improve, our physical therapists will perform initial evaluation of pt's status upon admission and devise an individualized program for Bed mobility Need for home safety evaluation - to improve, our physical therapists will perform initial evaluatio n of pt's status upon admission and devise an individualized program for Home Evaluation Need in caregiver upon discharge - to improve, our physical therapists will perform initial evaluati on of pt's status upon admission and devise an individualized program for Caregiver Training New precaution - to improve, our physical therapists will perform initial evaluation of pt's status upon admission and devise an individualized program for Patient precaution education Edema - to improve, our physical therapists will perform initial evaluation of pt's status upon admi ssion and devise an individualized program for Elevation Training, and Lymphedema Therapy Poor balance - to improve, our physical therapists will perform initial evaluation of pt's status up on admission and devise an individualized program for Balance Training Poor endurance - to improve, our physical therapists will perform initial evaluation of pt's status upon admission and devise an individualized program for Endurance Training Weakness - to improve, our physical therapists will perform initial evaluation of pt's status upon a dmission and devise an individualized program for Aquatic Therapy, Neuromuscular Reeducation, and Str engthening Achieving independence - to improve, our physical therapists will perform initial evaluation of pt's status upon admission and devise an individualized program for Community Reintegration Activities - Diet Type Continue Regular - Diet - Liquid Texture Continue Regular - Tube Feed Continue N/A - Weight Bearing Precaution NWB both LE - Fall Precaution Bed and chair alarm - Skin care per protocol - Diet - Solid Texture Continue Regular - Shower allowing shower - Occupational Therapy ADL deficits - to improve, our occupation therapists will perform initial evaluation of pt's status upon admission and devise an individualized program for Bathing, Bed mobility, Community Reintegratio n, Cooking, Dressing, Eating, Fine Motor Skills, Grooming, Homemaking, Kitchen Mobility, Laundry, Pat ient Education, Safety Awareness, Splinting - Positioning, Transfers(Toilet, Tub, Shower), and Wheel Chair Management Need for career development specialist - to improve, our occupation therapists will perform initial evaluation of pt's status upon admission and devise an individualized program for Caregiver Training Weakness - to improve, our occupation therapists will perform initial evaluation of pt's status upon admission and devise an individualized program for Aquatic Therapy, Balance, Endurance, UE ROM, and UE strengthening FUNCTIONAL STATUS: UPDATED AT WEEKLY TEAM CONFERENCE - Bladder Same Bladder control device used: catheter Same accident frequency: 7-Ind - No accidents in the past 7 days - Bowel Same accident frequency: 7-Ind - No accidents in the past 7 days - Walking Same score based on distance walked: 0(N/A) - Wheelchair Same score based on distance traveled: 0(N/A) FUNCTIONAL STATUS: - Self-Care A. Eating sup B. Grooming sup C. Bathing Dep D. Dressing - Upper Dep E. Dressing - Lower Dep F. Toileting Dep - Sphincter Control G: Bladder control Dep H: Bowel control Nestor - Transfers Control I. Bed/Chair/Wheelchair Dep J. Toilet Dep K. Tub/Shower ADNO - Locomotion L. Walk/Wheelchair (C) Dep L. Walk/Wheelchair (W) ADNO M. Stairs ADNO - Communication N. Comprehension (B) Nestor O. Expression (B) Nestor - Social Cognition P. Social Interaction Nestor Q. Problem Solving Nestor R. Memory Nestor - Endurance Poor - Balance Poor - Safety Awareness Poor CURRENT FUNC. DEFICITS: Endurance, Safety Awareness, Transfers Control, Balance, Self-Care, and Locomotion SIGNATURE PANEL: (CDT)
[2017-10-31] MEDS: TRAZODONE 150 MG TAB PO SCH (21:24)
[2017-10-31] MEDS: TAMSULOSIN 0.4 MG SR CAP PO SCH (21:25)
[2017-10-31] MEDS: MIRTAZAPINE 15 MG TAB PO SCH (21:25)
--- NOTE | 2017-11-01 03:39 | FAST ---
SHIFT START DATE/TIME: 10/31/2017 19:00 (CDT) SHIFT END DATE/TIME: 11/01/2017 07:00 (CDT) NAME CHARIS MCKEON DATE OF : 1955 DATE OF ADMISSION: 10/25/2017 14:59 (CDT) PHONE: AGE: 62 N# [id number] GENDER: Female ENCOUNTER PHYSICIAN: Dr. Marino Villar M.D. ADMISSION DIAGNOSIS: - Orthopaedic Disorders 08 - Other Orthopaedic (08.9) Bilateral Tibial Plateau Fracture. EATING: Activity did not occur on this shift EATING - SCORE: 0-UNK GROOMING: Oral care Wash, rinse, and dry face Wash, rinse, and dry hands GROOMING - STEP 1: Does the patient require assistance when grooming? Yes. GROOMING - STEP 2: Does the patient require the assistance of a helper? Yes. GROOMING - STEP 3: How much assistance does the patient require from the helper? Only prior equipment preparation/set up from the helper GROOMING - SCORE: 5-SUP BATHING: Activity did not occur on this shift BATHING - SCORE: 0-UNK DRESSING - UPPER BODY: Patient is not dressing in public clothing ARTICLES SCORE Total number of steps: 0 DRESSING - UPPER BODY - SCORE: 0-UNK DRESSING - LOWER BODY: Patient is not dressing in public clothing ARTICLES SCORE Total number of steps: 0 DRESSING - LOWER BODY - SCORE: 0-UNK TOILETING: TOILETING - STEP 1: Does the patient require assistance with toileting? Yes. TOILETING - STEP 2: Does the patient require the assistance of a helper? Yes. TOILETING - STEP 3: How much assistance does the patient require from the helper? Hands-on assistance from the helper TOILETING - STEP 4: Of the 3 tasks: 1) Adjusting clothing prior to use, 2) Cleansing of perineal area, 3) Adjusting clot toby after use; How many tasks does the patient perform WITHOUT assistance of the helper? One task TOILETING - SCORE: 2-MAX BLADDER MANAGEMENT: BLADDER MANAGEMENT - STEP 1: Does the patient control the bladder completely and intentionally without equipment or devices or med ications, and is always continent? No. BLADDER MANAGEMENT - STEP 2: Does the patient require the assistance of a helper? Yes. BLADDER MANAGEMENT - STEP 3: How much assistance does the patient require from the helper? Patient requires contact assistance fro m the helper BLADDER MANAGEMENT - STEP 4: How much contact assistance does the patient require from the helper? Patient requires minimal assist ance to maintain an external device - by positioning, and the patient performs 75% or more of bladder management tasks, while the helper provides less than 25% of the assistance to position patient on / off bedpan BLADDER MANAGEMENT - SCORE: 4-MIN BOWEL MANAGEMENT: Activity did not occur on this shift BOWEL MANAGEMENT - SCORE: 7-IND TRANSFERS: BED, CHAIR, WHEELCHAIR: Activity did not occur on this shift TRANSFERS: BED, CHAIR, WHEELCHAIR - SCORE: 0-UNK TRANSFERS: TOILET: TRANSFERS: TOILET - STEP 1: Does the patient require assistance with toilet transfers? Yes. TRANSFERS: TOILET - STEP 2: Does the patient require the assistance of a helper? Yes. TRANSFERS: TOILET - STEP 3: How much assistance does the patient require from the helper? Patient performs less than half of the transferring tasks TRANSFERS: TOILET - STEP 4: Does the patient require total assistance for the toilet transfer such as the helper doing basically all the lifting? No. TRANSFERS: TOILET - SCORE: 2-MAX TRANSFERS: SHOWER: Activity did not occur on this shift TRANSFERS: SHOWER - SCORE: 0-UNK TRANSFERS: TUB: Activity did not occur on this shift TRANSFERS: TUB - SCORE: 0-UNK LOCOMOTION: WALK: Activity did not occur on this shift LOCOMOTION: WALK - SCORE: 0-UNK LOCOMOTION: WHEELCHAIR: Activity did not occur on this shift LOCOMOTION: WHEELCHAIR - SCORE: 0-UNK COMPREHENSION: COMPREHENSION: TYPE: Both COMPREHENSION - STEP 1: Does the patient require help to understand complex and abstract ideas (such as current events, finan pari, discharge planning, medical issues, relationships, etc)? No. COMPREHENSION - STEP 2: Does the patient need extra time, require an assistive device (such as glasses, hearing aids, or an a ugmentative communication system), OR does s/he have mild difficulty expressing complex and abstract ideas (including mild dysarthria or mild word-finding problems)? Yes. COMPREHENSION - SCORE: 6-DANIEL EXPRESSION EXPRESSION: TYPE: Both EXPRESSION - STEP 1: Does the patient require help expressing complex and abstract ideas (such as current events, finances , discharge planning, medical issues, relationships, etc)? No. EXPRESSION - STEP 2: Does the patient need extra time, require an assistive device (such as augmentive communication syste m or a communication board), OR does s/he have mild difficulty expressing complex and abstract ideas (including mild dysarthria or mild word-find problems)? No. EXPRESSION - SCORE: 7-IND SOCIAL INTERACTION: SOCIAL INTERACTION - STEP 1: Does the patient require a helper to interact with others in social and therapeutic situations? No. SOCIAL INTERACTION - STEP 2: Does the patient need extra time in social situations, OR does s/he interact with staff, other patien ts, and family members ONLY in structured environments, OR does s/he require medication for social in teraction? Yes, patient needs extra time SOCIAL INTERACTION - SCORE: 6-DANIEL PROBLEM SOLVING: PROBLEM SOLVING - STEP 1: Does the patient need help to solve complex problems such as managing a checking account or confronti ng interpersonal problems? No. PROBLEM SOLVING - STEP 2: Does the patient require extra time to make decisions or solve problems, OR does s/he have slight dif ficulty reading, initiating, or self-correcting in unfamiliar situations? No. PROBLEM SOLVING - SCORE: 7-IND MEMORY: MEMORY - STEP 1: Does the patient need help to remember frequently encountered people, daily routines, and executing r equests? No. MEMORY - STEP 2: Does the patient have slight difficulty recognizing frequently encountered people, daily routines, or executing requests without the need for repetition or using self-initiated or environmental cues to remember? No. MEMORY - SCORE: 7-IND
[2017-11-01] MEDS: CARVEDILOL 25 MG TAB PO SCH ×2 (05:24→17:30)
--- NOTE | 2017-11-01 07:51 | FAST ---
ENCOUNTER DATE AND TIME: 10/31/2017 08:00 (CDT) NAME CHARIS MCKEON DATE OF : 1955 DATE OF ADMISSION: 10/25/2017 14:59 (CDT) PHONE: AGE: 62 N# [id number] GENDER: Female ENCOUNTER PHYSICIAN: Dr. Marino Villar M.D. ADMISSION DIAGNOSIS: - Orthopaedic Disorders 08 - Other Orthopaedic (08.9) Bilateral Tibial Plateau Fracture. EATING: Activity did not occur on this shift EATING - SCORE: 0-UNK GROOMING: Comb/brush hair Wash, rinse, and dry face Wash, rinse, and dry hands GROOMING - STEP 1: Does the patient require assistance when grooming? Yes. GROOMING - STEP 2: Does the patient require the assistance of a helper? Yes. GROOMING - STEP 3: How much assistance does the patient require from the helper? Only prior equipment preparation/set up from the helper GROOMING - SCORE: 5-SUP BATHING: Abdomen Buttocks Chest Left arm Left lower leg and foot Left upper leg Perineal area Right arm Right lower leg and foot BATHING - STEP 1: Does the patient require assistance when bathing? Yes. BATHING - STEP 2: Does the patient require the assistance of a helper? Yes. BATHING - STEP 3: How much assistance does the patient require from the helper? More than just incidental help BATHING - STEP 4: What percent of the body parts did the patient bathe WITHOUT the helper? Half or more of the body par ts BATHING - SCORE: 3-MOD DRESSING - UPPER BODY: T-shirt/pullover shirt (four steps) ARTICLES SCORE Total number of steps: 4 DRESSING - UPPER BODY - STEP 1: Does the patient require help when dressing above the waist? Yes. DRESSING - UPPER BODY - STEP 2: Does the patient require the assistance of a helper? Yes. DRESSING - UPPER BODY - STEP 3: Does the helper touch the patient while dressing? No. DRESSING - UPPER BODY - SCORE: 5-SUP DRESSING - LOWER BODY: Activity did not occur on this shift ARTICLES SCORE Total number of steps: 0 DRESSING - LOWER BODY - SCORE: 0-UNK TOILETING: Activity did not occur on this shift TOILETING - SCORE: 0-UNK BLADDER MANAGEMENT: Activity did not occur on this shift BLADDER MANAGEMENT - SCORE: 7-IND BOWEL MANAGEMENT: Activity did not occur on this shift BOWEL MANAGEMENT - SCORE: 7-IND TRANSFERS: BED, CHAIR, WHEELCHAIR: Activity did not occur on this shift TRANSFERS: BED, CHAIR, WHEELCHAIR - SCORE: 0-UNK TRANSFERS: TOILET: Activity did not occur on this shift TRANSFERS: TOILET - SCORE: 0-UNK TRANSFERS: SHOWER: More than one helper is required for shower transfer TRANSFERS: SHOWER - SCORE: 1-DEP TRANSFERS: TUB: Activity did not occur on this shift TRANSFERS: TUB - SCORE: 0-UNK LOCOMOTION: WALK: Activity did not occur on this shift LOCOMOTION: WALK - SCORE: 0-UNK LOCOMOTION: WHEELCHAIR: Activity did not occur on this shift LOCOMOTION: WHEELCHAIR - SCORE: 0-UNK LOCOMOTION: STAIRS: Activity did not occur on this shift LOCOMOTION: STAIRS - SCORE: 0-UNK COMPREHENSION: COMPREHENSION - SCORE: 0-UNK EXPRESSION EXPRESSION - SCORE: 0-UNK SOCIAL INTERACTION: SOCIAL INTERACTION - SCORE: 0-UNK PROBLEM SOLVING: PROBLEM SOLVING - SCORE: 0-UNK MEMORY: MEMORY - SCORE: 0-UNK SIGNATURE PANEL: The following modified sections: Eating - Score, Grooming - Score, Bathing - Score, Dressing - Upper Body - Score, Dressing - Lower Body - Score, Toileting - Score, Transfers: Bed, Chair, Wheelchair - S core, Transfers: Toilet - Score, Transfers: Shower - Score, Transfers: Tub - Score, Comprehension - S core, Expression - Score, Social Interaction - Score, Problem Solving - Score, Memory - Score were [e lectronically] signed by KAYE Marc on TueNov 01 2017 06:51:59 [facility]-0500 ([facility] Time)
[2017-11-01] MEDS: PROMOD 30 ML DOSE PO SCH ×2 (08:00→19:44)
[2017-11-01] MEDS: NEPRO SHAKE 237 ML CAN PO SCH ×2 (08:00→19:45)
[2017-11-01] MEDS: ENOXAPARIN 30 MG/0.3 ML SQ SCH (09:09)
[2017-11-01] MEDS: FE SULF/FA/VIT B COMP & C TAB PO SCH (09:10)
[2017-11-01] MEDS: ASPIRIN 81 MG CHEWABLE TABLET PO SCH (09:10)
[2017-11-01] MEDS: CETIRIZINE HCL 5 MG TABLET PO SCH (09:10)
[2017-11-01] MEDS: LACTOBACILLUS/ACIDOPHILUS TAB PO SCH (09:10)
[2017-11-01] MEDS: GABAPENTIN 300 MG CAP PO SCH ×2 (09:10→19:45)
[2017-11-01] MEDS: PANTOPRAZOLE 40MG TABLET PO SCH (09:10)
[2017-11-01] MEDS: VITAMIN D 5,000 UNIT CAP PO SCH (09:10)
[2017-11-01] MEDS: TRAMADOL HCL 50 MG TAB PO PRN ×2 (09:11→19:42)
[2017-11-01] MEDS: AMLODIPINE 5 MG TAB PO SCH (09:11)
[2017-11-01] MEDS: DOCUSATE NA 100 MG CAP PO SCH ×2 (09:12→19:49)
[2017-11-01] MEDS: FERROUS SULFATE 325 MG TAB PO SCH (09:12)
[2017-11-01] MEDS: HYDRALAZINE HCL 25 MG TABLET PO SCH ×3 (09:12→21:06)
[2017-11-01] MEDS: CALCITROL 0.25 MCG CAP PO SCH (09:12)
[2017-11-01] MEDS: MAGNESIUM OXIDE 400 MG TAB PO SCH (09:12)
[2017-11-01] MEDS: ISOSORBIDE MONO SR 30 MG TAB PO SCH ×2 (09:12→19:43)
--- NOTE | 2017-11-01 16:05 | FAST ---
ENCOUNTER DATE AND TIME: 11/01/2017 08:00 (CDT) NAME CHARIS MCKEON DATE OF : 1955 DATE OF ADMISSION: 10/25/2017 14:59 (CDT) PHONE: AGE: 62 N# [id number] GENDER: Female ENCOUNTER PHYSICIAN: Dr. Marino Villar M.D. ADMISSION DIAGNOSIS: - Orthopaedic Disorders 08 - Other Orthopaedic (08.9) Bilateral Tibial Plateau Fracture. EATING: Activity did not occur on this shift EATING - SCORE: 0-UNK GROOMING: Activity did not occur on this shift GROOMING - SCORE: 0-UNK BATHING: Activity did not occur on this shift BATHING - SCORE: 0-UNK DRESSING - UPPER BODY: Activity did not occur on this shift Patient is not dressing in public clothing ARTICLES SCORE Total number of steps: 0 DRESSING - UPPER BODY - SCORE: 0-UNK DRESSING - LOWER BODY: Activity did not occur on this shift Patient is not dressing in public clothing ARTICLES SCORE Total number of steps: 0 DRESSING - LOWER BODY - SCORE: 0-UNK TOILETING: Activity did not occur on this shift TOILETING - SCORE: 0-UNK BLADDER MANAGEMENT: Activity did not occur on this shift BLADDER MANAGEMENT - SCORE: 7-IND BOWEL MANAGEMENT: Activity did not occur on this shift BOWEL MANAGEMENT - SCORE: 7-IND TRANSFERS: BED, CHAIR, WHEELCHAIR: Activity did not occur on this shift TRANSFERS: BED, CHAIR, WHEELCHAIR - SCORE: 0-UNK TRANSFERS: TOILET: Activity did not occur on this shift TRANSFERS: TOILET - SCORE: 0-UNK TRANSFERS: SHOWER: Activity did not occur on this shift TRANSFERS: SHOWER - SCORE: 0-UNK TRANSFERS: TUB: Activity did not occur on this shift TRANSFERS: TUB - SCORE: 0-UNK LOCOMOTION: WALK: Activity did not occur on this shift LOCOMOTION: WALK - SCORE: 0-UNK LOCOMOTION: WHEELCHAIR: Activity did not occur on this shift LOCOMOTION: WHEELCHAIR - SCORE: 0-UNK LOCOMOTION: STAIRS: Activity did not occur on this shift LOCOMOTION: STAIRS - SCORE: 0-UNK COMPREHENSION: COMPREHENSION - SCORE: 0-UNK EXPRESSION EXPRESSION - SCORE: 0-UNK SOCIAL INTERACTION: SOCIAL INTERACTION - SCORE: 0-UNK PROBLEM SOLVING: PROBLEM SOLVING - SCORE: 0-UNK MEMORY: MEMORY - SCORE: 0-UNK SIGNATURE PANEL: The following modified sections: Transfers: Bed, Chair, Wheelchair - Score, Transfers: Toilet - Score , Locomotion: Walk - Score, Locomotion: Wheelchair - Score, Locomotion: Stairs - Score were [electron michael] signed by Aries Muhammad PTA on TueNov 01 2017 15:05:04 GMT-0500 (Central Daylight Time)
--- NOTE | 2017-11-01 17:10 | FAST ---
SHIFT START DATE/TIME: 10/31/2017 07:00 (CDT) SHIFT END DATE/TIME: 10/31/2017 19:00 (CDT) NAME CHARIS MCKEON DATE OF : 1955 DATE OF ADMISSION: 10/25/2017 14:59 (CDT) PHONE: AGE: 62 N# [id number] GENDER: Female ENCOUNTER PHYSICIAN: Dr. Marino Villar M.D. ADMISSION DIAGNOSIS: - Orthopaedic Disorders 08 - Other Orthopaedic (08.9) Bilateral Tibial Plateau Fracture. EATING: EATING - STEP 1: Does the patient require assistance when eating? Yes. EATING - STEP 2: Does the patient require the assistance of a helper? Yes. EATING - STEP 3: Does the patient perform half or more of the eating tasks? Yes. EATING - STEP 4: Does the patient need only supervision, cuing, coaxing OR help to apply an orthosis OR help to cut fo od, open containers, pour liquids, or butter bread? Yes. EATING - SCORE: 5-SUP GROOMING: Comb/brush hair Oral care Wash, rinse, and dry face Wash, rinse, and dry hands GROOMING - STEP 1: Does the patient require assistance when grooming? Yes. GROOMING - STEP 2: Does the patient require the assistance of a helper? No. The patient only requires an assistive devic e, OR takes more than reasonable time to groom, OR there is a concern for safety as the patient groom s GROOMING - SCORE: 6-DANIEL BATHING: Activity did not occur on this shift BATHING - SCORE: 0-UNK DRESSING - UPPER BODY: ARTICLES SCORE Total number of steps: 0 DRESSING - UPPER BODY - STEP 1: Does the patient require help when dressing above the waist? Yes. DRESSING - UPPER BODY - STEP 2: Does the patient require the assistance of a helper? Yes. DRESSING - UPPER BODY - STEP 3: Does the helper touch the patient while dressing? No. DRESSING - UPPER BODY - SCORE: 5-SUP DRESSING - LOWER BODY: Underwear (three steps) ARTICLES SCORE Total number of steps: 3 DRESSING - LOWER BODY - STEP 1: Does the patient require help when dressing below the waist? Yes. DRESSING - LOWER BODY - STEP 2: Does the patient require the assistance of a helper? Yes. DRESSING - LOWER BODY - STEP 3: Does the helper touch the patient while dressing? Yes. DRESSING - LOWER BODY - STEP 4: How many of the total steps does the patient complete on his/her own? 0 DRESSING - LOWER BODY - STEP 5: Does patient require total assistance for dressing below the waist such as the helper holding clothin g and performing basically all the activities? Yes. DRESSING - LOWER BODY - SCORE: 1-DEP TOILETING: TOILETING - STEP 1: Does the patient require assistance with toileting? Yes. TOILETING - STEP 2: Does the patient require the assistance of a helper? Yes. TOILETING - STEP 3: How much assistance does the patient require from the helper? Hands-on assistance from the helper TOILETING - STEP 4: Of the 3 tasks: 1) Adjusting clothing prior to use, 2) Cleansing of perineal area, 3) Adjusting clot toby after use; How many tasks does the patient perform WITHOUT assistance of the helper? One task TOILETING - SCORE: 2-MAX BLADDER MANAGEMENT: [place] removes incontinent device (Depends, pull ups, etc.); cleans the patient after accident / inco ntinent episode; and, applies new incontinent device. BLADDER MANAGEMENT - SCORE: 1-DEP BLADDER MANAGEMENT - COMMENTS: - BLADDER MANAGEMENT - FREQUENCY OF ACCIDENTS: BLADDER MANAGEMENT(FA) - STEP 1: How many accidents has the patient had during the current shift? 1 BOWEL MANAGEMENT: Activity did not occur on this shift BOWEL MANAGEMENT - SCORE: 7-IND BOWEL MANAGEMENT - FREQUENCY OF ACCIDENTS: BOWEL MANAGEMENT(FA) - STEP 1: How many accidents has the patient had during the current shift? 0 TRANSFERS: BED, CHAIR, WHEELCHAIR: TRANSFERS: BED, CHAIR, WHEELCHAIR - STEP 1: Does the patient require assistance with bed, chair, or wheelchair transfers? Yes. TRANSFERS: BED, CHAIR, WHEELCHAIR - STEP 2: Does the patient require the assistance of a helper? Yes. TRANSFERS: BED, CHAIR, WHEELCHAIR - STEP 3: How much assistance does the patient require from the helper? Lifting of the patient TRANSFERS: BED, CHAIR, WHEELCHAIR - STEP 4: Does the helper lift the patient ONLY up? ONLY down? Up AND Down? Patient needs help with all lifting TRANSFERS: BED, CHAIR, WHEELCHAIR - SCORE: 1-DEP TRANSFERS: BED, CHAIR, WHEELCHAIR - COMMENTS: Pt uses her arms and lifts and moves herself to edge of bed- w/c positioned beside bed- helper holds pt feet and legs up- pt lifts self up and backs to edge of bed- helper lifts pt as helper holds legs up and 2 helpers transfers pt into w/c- TRANSFERS: TOILET: TRANSFERS: TOILET - STEP 1: Does the patient require assistance with toilet transfers? Yes. TRANSFERS: TOILET - STEP 2: Does the patient require the assistance of a helper? Yes. TRANSFERS: TOILET - STEP 3: How much assistance does the patient require from the helper? Patient performs half or more of the tr ansferring tasks TRANSFERS: TOILET - STEP 4: Does the patient need only incidental help such as contact guard or steadying during toilet transfer? No. Patient needs more than incidental help TRANSFERS: TOILET - SCORE: 3-MOD TRANSFERS: TOILET - COMMENTS: Bed side commode positioned facing bed- pt uses her arms to lift herself and move to side of bed- hel per holds feet and legs up- 2nd helper lifts pt body up and 2 helpers lift and position pt on bed arvind e commode TRANSFERS: SHOWER: Activity did not occur on this shift TRANSFERS: SHOWER - SCORE: 0-UNK TRANSFERS: TUB: Activity did not occur on this shift TRANSFERS: TUB - SCORE: 0-UNK LOCOMOTION: WALK: Activity did not occur on this shift LOCOMOTION: WALK - SCORE: 0-UNK LOCOMOTION: WHEELCHAIR: Activity did not occur on this shift LOCOMOTION: WHEELCHAIR - SCORE: 0-UNK COMPREHENSION: COMPREHENSION: TYPE: Both COMPREHENSION - STEP 1: Does the patient require help to understand complex and abstract ideas (such as current events, finan pari, discharge planning, medical issues, relationships, etc)? No. COMPREHENSION - STEP 2: Does the patient need extra time, require an assistive device (such as glasses, hearing aids, or an a ugmentative communication system), OR does s/he have mild difficulty expressing complex and abstract ideas (including mild dysarthria or mild word-finding problems)? Yes. COMPREHENSION - SCORE: 6-DANIEL EXPRESSION EXPRESSION: TYPE: Both EXPRESSION - STEP 1: Does the patient require help expressing complex and abstract ideas (such as current events, finances , discharge planning, medical issues, relationships, etc)? No. EXPRESSION - STEP 2: Does the patient need extra time, require an assistive device (such as augmentive communication syste m or a communication board), OR does s/he have mild difficulty expressing complex and abstract ideas (including mild dysarthria or mild word-find problems)? Yes. EXPRESSION - SCORE: 6-DANIEL SOCIAL INTERACTION: SOCIAL INTERACTION - STEP 1: Does the patient require a helper to interact with others in social and therapeutic situations? No. SOCIAL INTERACTION - STEP 2: Does the patient need extra time in social situations, OR does s/he interact with staff, other patien ts, and family members ONLY in structured environments, OR does s/he require medication for social in teraction? Yes, patient needs extra time SOCIAL INTERACTION - SCORE: 6-DANIEL PROBLEM SOLVING: PROBLEM SOLVING - STEP 1: Does the patient need help to solve complex problems such as managing a checking account or confronti ng interpersonal problems? Yes. PROBLEM SOLVING - STEP 2: Does the patient solve basic routine problems half or more of the time? Yes. PROBLEM SOLVING - STEP 3: How often does the patient need help to solve basic routine problems? Less than 10% of the time PROBLEM SOLVING - SCORE: 5-SUP MEMORY: MEMORY - STEP 1: Does the patient need help to remember frequently encountered people, daily routines, and executing r equests? No. MEMORY - STEP 2: Does the patient have slight difficulty recognizing frequently encountered people, daily routines, or executing requests without the need for repetition or using self-initiated or environmental cues to remember? Yes. MEMORY - SCORE: 6-DANIEL SIGNATURE PANEL: The following modified sections: Eating - Score, Grooming - Score, Bathing - Score, Dressing - Upper Body - Score, Dressing - Lower Body - Score, Toileting - Score, Bladder Management - Score, Bladder M anagement - Comments:, Bowel Management - Score, Transfers: Bed, Chair, Wheelchair - Score, Transfers : Bed, Chair, Wheelchair - Comments:, Transfers: Toilet - Score, Transfers: Toilet - Comments:, Trans fers: Shower - Score, Transfers: Tub - Score, Locomotion: Walk - Score, Locomotion: Wheelchair - Scor e, Comprehension - Score, Expression - Score, Social Interaction - Score, Problem Solving - Score, Me kiersten - Score were [electronically] signed by Loida Mauricio C.N.A. on TueNov 01 2017 16:10:29 GMT-050 0 (Central Daylight Time)
--- NOTE | 2017-11-01 18:02 | FAST ---
SHIFT START DATE/TIME: 11/01/2017 07:00 (CDT) SHIFT END DATE/TIME: 11/01/2017 19:00 (CDT) NAME CHARIS MCKEON DATE OF : 1955 DATE OF ADMISSION: 10/25/2017 14:59 (CDT) PHONE: AGE: 62 N# [id number] GENDER: Female ENCOUNTER PHYSICIAN: Dr. Marino Villar M.D. ADMISSION DIAGNOSIS: - Orthopaedic Disorders 08 - Other Orthopaedic (08.9) Bilateral Tibial Plateau Fracture. EATING: EATING - STEP 1: Does the patient require assistance when eating? Yes. EATING - STEP 2: Does the patient require the assistance of a helper? Yes. EATING - STEP 3: Does the patient perform half or more of the eating tasks? Yes. EATING - STEP 4: Does the patient need only supervision, cuing, coaxing OR help to apply an orthosis OR help to cut fo od, open containers, pour liquids, or butter bread? Yes. EATING - SCORE: 5-SUP GROOMING: Comb/brush hair Oral care Wash, rinse, and dry face Wash, rinse, and dry hands GROOMING - STEP 1: Does the patient require assistance when grooming? Yes. GROOMING - STEP 2: Does the patient require the assistance of a helper? No. The patient only requires an assistive devic e, OR takes more than reasonable time to groom, OR there is a concern for safety as the patient groom s GROOMING - SCORE: 6-DANIEL BATHING: Activity did not occur on this shift BATHING - SCORE: 0-UNK DRESSING - UPPER BODY: Activity did not occur on this shift ARTICLES SCORE Total number of steps: 0 DRESSING - UPPER BODY - SCORE: 0-UNK DRESSING - LOWER BODY: Activity did not occur on this shift ARTICLES SCORE Total number of steps: 0 DRESSING - LOWER BODY - SCORE: 0-UNK TOILETING: TOILETING - STEP 1: Does the patient require assistance with toileting? Yes. TOILETING - STEP 2: Does the patient require the assistance of a helper? Yes. TOILETING - STEP 3: How much assistance does the patient require from the helper? Hands-on assistance from the helper TOILETING - STEP 4: Of the 3 tasks: 1) Adjusting clothing prior to use, 2) Cleansing of perineal area, 3) Adjusting clot toby after use; How many tasks does the patient perform WITHOUT assistance of the helper? One task TOILETING - SCORE: 2-MAX BLADDER MANAGEMENT: [place] removes incontinent device (Depends, pull ups, etc.); cleans the patient after accident / inco ntinent episode; and, applies new incontinent device. BLADDER MANAGEMENT - SCORE: 1-DEP BLADDER MANAGEMENT - FREQUENCY OF ACCIDENTS: BLADDER MANAGEMENT(FA) - STEP 1: How many accidents has the patient had during the current shift? 1 BOWEL MANAGEMENT: BOWEL MANAGEMENT - STEP 1: Does the patient control bowels completely and intentionally without equipment devices or medications AND is always continent? No. BOWEL MANAGEMENT - STEP 2: Does the patient require the assistance of a helper? Yes. BOWEL MANAGEMENT - STEP 3: How much assistance does the patient require from the helper? Patient requires moderate assistance - performs 50% to 74% of bowel management tasks BOWEL MANAGEMENT - SCORE: 3-MOD BOWEL MANAGEMENT - COMMENTS: 2 helpers help pt get on tiolet- helper preforms hygiene care- helper pulls pt brief up and down BOWEL MANAGEMENT - FREQUENCY OF ACCIDENTS: BOWEL MANAGEMENT(FA) - STEP 1: How many accidents has the patient had during the current shift? 0 TRANSFERS: BED, CHAIR, WHEELCHAIR: TRANSFERS: BED, CHAIR, WHEELCHAIR - STEP 1: Does the patient require assistance with bed, chair, or wheelchair transfers? Yes. TRANSFERS: BED, CHAIR, WHEELCHAIR - STEP 2: Does the patient require the assistance of a helper? Yes. TRANSFERS: BED, CHAIR, WHEELCHAIR - STEP 3: How much assistance does the patient require from the helper? Lifting of the patient TRANSFERS: BED, CHAIR, WHEELCHAIR - STEP 4: Does the helper lift the patient ONLY up? ONLY down? Up AND Down? Patient needs help with all lifting TRANSFERS: BED, CHAIR, WHEELCHAIR - SCORE: 1-DEP TRANSFERS: BED, CHAIR, WHEELCHAIR - COMMENTS: 2 helpers help lift and position pt into w/c- helper position sliding board under pt legs to elevate TRANSFERS: TOILET: TRANSFERS: TOILET - STEP 1: Does the patient require assistance with toilet transfers? Yes. TRANSFERS: TOILET - STEP 2: Does the patient require the assistance of a helper? Yes. TRANSFERS: TOILET - STEP 3: How much assistance does the patient require from the helper? Patient performs half or more of the tr ansferring tasks TRANSFERS: TOILET - STEP 4: Does the patient need only incidental help such as contact guard or steadying during toilet transfer? No. Patient needs more than incidental help TRANSFERS: TOILET - SCORE: 3-MOD TRANSFERS: TOILET - COMMENTS: Pt lifts body and moves to side of bed- tiolet positioned beside bed- helper holds pt legs up and 2nd helper lifts pt body up and onto tiolet TRANSFERS: SHOWER: Activity did not occur on this shift TRANSFERS: SHOWER - SCORE: 0-UNK TRANSFERS: TUB: Activity did not occur on this shift TRANSFERS: TUB - SCORE: 0-UNK LOCOMOTION: WALK: Activity did not occur on this shift LOCOMOTION: WALK - SCORE: 0-UNK LOCOMOTION: WHEELCHAIR: Activity did not occur on this shift LOCOMOTION: WHEELCHAIR - SCORE: 0-UNK COMPREHENSION: COMPREHENSION: TYPE: Both COMPREHENSION - STEP 1: Does the patient require help to understand complex and abstract ideas (such as current events, finan pari, discharge planning, medical issues, relationships, etc)? No. COMPREHENSION - STEP 2: Does the patient need extra time, require an assistive device (such as glasses, hearing aids, or an a ugmentative communication system), OR does s/he have mild difficulty expressing complex and abstract ideas (including mild dysarthria or mild word-finding problems)? Yes. COMPREHENSION - SCORE: 6-DANIEL EXPRESSION EXPRESSION: TYPE: Both EXPRESSION - STEP 1: Does the patient require help expressing complex and abstract ideas (such as current events, finances , discharge planning, medical issues, relationships, etc)? No. EXPRESSION - STEP 2: Does the patient need extra time, require an assistive device (such as augmentive communication syste m or a communication board), OR does s/he have mild difficulty expressing complex and abstract ideas (including mild dysarthria or mild word-find problems)? Yes. EXPRESSION - SCORE: 6-DANIEL SOCIAL INTERACTION: SOCIAL INTERACTION - STEP 1: Does the patient require a helper to interact with others in social and therapeutic situations? No. SOCIAL INTERACTION - STEP 2: Does the patient need extra time in social situations, OR does s/he interact with staff, other patien ts, and family members ONLY in structured environments, OR does s/he require medication for social in teraction? Yes, patient needs extra time SOCIAL INTERACTION - SCORE: 6-DANIEL PROBLEM SOLVING: PROBLEM SOLVING - STEP 1: Does the patient need help to solve complex problems such as managing a checking account or confronti ng interpersonal problems? Yes. PROBLEM SOLVING - STEP 2: Does the patient solve basic routine problems half or more of the time? Yes. PROBLEM SOLVING - STEP 3: How often does the patient need help to solve basic routine problems? Less than 10% of the time PROBLEM SOLVING - SCORE: 5-SUP MEMORY: MEMORY - STEP 1: Does the patient need help to remember frequently encountered people, daily routines, and executing r equests? No. MEMORY - STEP 2: Does the patient have slight difficulty recognizing frequently encountered people, daily routines, or executing requests without the need for repetition or using self-initiated or environmental cues to remember? Yes. MEMORY - SCORE: 6-DANIEL SIGNATURE PANEL: The following modified sections: Eating - Score, Grooming - Score, Bathing - Score, Dressing - Upper Body - Score, Dressing - Lower Body - Score, Toileting - Score, Bladder Management - Score, Bowel Man agement - Score, Bowel Management - Comments:, Transfers: Bed, Chair, Wheelchair - Score, Transfers: Bed, Chair, Wheelchair - Comments:, Transfers: Toilet - Score, Transfers: Toilet - Comments:, Transfe rs: Shower - Score, Transfers: Tub - Score, Locomotion: Walk - Score, Locomotion: Wheelchair - Score, Comprehension - Score, Expression - Score, Social Interaction - Score, Problem Solving - Score, Robbin ry - Score were [electronically] signed by Loida Mauricio C.N.A. on TueNov 01 2017 17:02:28 T-0500 (Central Daylight Time)
--- NOTE | 2017-11-01 18:27 | FAST ---
ENCOUNTER DATE AND TIME: 11/01/2017 08:00 (CDT) NAME CHARIS MCKEON DATE OF : 1955 DATE OF ADMISSION: 10/25/2017 14:59 (CDT) PHONE: AGE: 62 N# [id number] GENDER: Female ENCOUNTER PHYSICIAN: Dr. Marino Villar M.D. ADMISSION DIAGNOSIS: - Orthopaedic Disorders 08 - Other Orthopaedic (08.9) Bilateral Tibial Plateau Fracture. EATING: Activity did not occur on this shift EATING - SCORE: 0-UNK GROOMING: Activity did not occur on this shift GROOMING - SCORE: 0-UNK BATHING: Activity did not occur on this shift BATHING - SCORE: 0-UNK DRESSING - UPPER BODY: Activity did not occur on this shift Patient is not dressing in public clothing ARTICLES SCORE Total number of steps: 0 DRESSING - UPPER BODY - SCORE: 0-UNK DRESSING - LOWER BODY: Activity did not occur on this shift Patient is not dressing in public clothing ARTICLES SCORE Total number of steps: 0 DRESSING - LOWER BODY - SCORE: 0-UNK TOILETING: Activity did not occur on this shift TOILETING - SCORE: 0-UNK BLADDER MANAGEMENT: Activity did not occur on this shift BLADDER MANAGEMENT - SCORE: 7-IND BOWEL MANAGEMENT: Activity did not occur on this shift BOWEL MANAGEMENT - SCORE: 7-IND TRANSFERS: BED, CHAIR, WHEELCHAIR: Activity did not occur on this shift TRANSFERS: BED, CHAIR, WHEELCHAIR - SCORE: 0-UNK TRANSFERS: TOILET: Activity did not occur on this shift TRANSFERS: TOILET - SCORE: 0-UNK TRANSFERS: SHOWER: Activity did not occur on this shift TRANSFERS: SHOWER - SCORE: 0-UNK TRANSFERS: TUB: Activity did not occur on this shift TRANSFERS: TUB - SCORE: 0-UNK LOCOMOTION: WALK: Activity did not occur on this shift LOCOMOTION: WALK - SCORE: 0-UNK LOCOMOTION: WHEELCHAIR: Activity did not occur on this shift LOCOMOTION: WHEELCHAIR - SCORE: 0-UNK LOCOMOTION: STAIRS: Activity did not occur on this shift LOCOMOTION: STAIRS - SCORE: 0-UNK COMPREHENSION: COMPREHENSION - STEP 1: Does the patient require help to understand complex and abstract ideas (such as current events, finan pari, discharge planning, medical issues, relationships, etc)? No. COMPREHENSION - STEP 2: Does the patient need extra time, require an assistive device (such as glasses, hearing aids, or an a ugmentative communication system), OR does s/he have mild difficulty expressing complex and abstract ideas (including mild dysarthria or mild word-finding problems)? Yes. COMPREHENSION - SCORE: 6-DANIEL EXPRESSION EXPRESSION - STEP 1: Does the patient require help expressing complex and abstract ideas (such as current events, finances , discharge planning, medical issues, relationships, etc)? No. EXPRESSION - STEP 2: Does the patient need extra time, require an assistive device (such as augmentive communication syste m or a communication board), OR does s/he have mild difficulty expressing complex and abstract ideas (including mild dysarthria or mild word-find problems)? No. EXPRESSION - SCORE: 7-IND SOCIAL INTERACTION: SOCIAL INTERACTION - STEP 1: Does the patient require a helper to interact with others in social and therapeutic situations? No. SOCIAL INTERACTION - STEP 2: Does the patient need extra time in social situations, OR does s/he interact with staff, other patien ts, and family members ONLY in structured environments, OR does s/he require medication for social in teraction? No. SOCIAL INTERACTION - SCORE: 7-IND PROBLEM SOLVING: PROBLEM SOLVING - STEP 1: Does the patient need help to solve complex problems such as managing a checking account or confronti ng interpersonal problems? No. PROBLEM SOLVING - STEP 2: Does the patient require extra time to make decisions or solve problems, OR does s/he have slight dif ficulty reading, initiating, or self-correcting in unfamiliar situations? Yes, patient needs extra ti me. PROBLEM SOLVING - SCORE: 6-DANIEL MEMORY: MEMORY - STEP 1: Does the patient need help to remember frequently encountered people, daily routines, and executing r equests? No. MEMORY - STEP 2: Does the patient have slight difficulty recognizing frequently encountered people, daily routines, or executing requests without the need for repetition or using self-initiated or environmental cues to remember? Yes. MEMORY - SCORE: 6-DANIEL SIGNATURE PANEL: The following modified sections: Comprehension - Score, Expression - Score, Social Interaction - Scor e, Problem Solving - Score, Memory - Score were [electronically] signed by EDGARD Nino on Tue 17:28:10 GMT-0500 (Central Daylight Time)
[2017-11-01] MEDS: CRANBERRY FRUIT EXTRACT 200 MG CAP PO SCH (19:43)
--- NOTE | 2017-11-01 19:45 | R.PN ---
ENCOUNTER DATE AND TIME: 11/01/2017 18:44 (CDT) NAME CHARIS MCKEON DATE OF : 1955 DATE OF ADMISSION: 10/25/2017 14:59 (CDT) Bilateral Tibial Plateau FractureCHIEF COMPLAINT: Tibial plateau fractures bilaterally SUBJECTIVE: Pt denied any Shortness of Breath. Pt denied any depression. Non-weight bearing on both lower extremities. Therapeutic exercises performed with lower and upper ex tremities. Bed mobility and transfers performed with minimum to moderate assistance. Propelled wheelc hair 250' with modified independence. VITAL SIGNS Temperature: 97.8 F SBP/DBP: 177/72 Pulse: 77 Resp: 16 MEDICATION ALLERGIES: Clindamycin Sulfamethoxazole Trimethoprim Clonidine Losartan ENVIRONMENTAL ALLERGIES: None Known - Substance Allergies None Known - Other Allergies None Known NURSING: - Shower allowing shower - Skin care per protocol PRECAUTIONS: - Weight Bearing Precaution NWB both LE - Fall Precaution Bed and chair alarm ACTIVITIES OOB only with supervision THERAPIES: - Occupational Therapy Evaluate and Treat. - Physical Therapy Evaluate and Treat. PHYSICAL EXAM - Gen Alert and awake Lying in bed No apparent distress Oriented to: person, time, and place - Skin No skin breakdown. Normacephalic - Eyes No abnormalities - ENMT No abnormalities - Neck No abnormalities - CVS RRR - Chest Clear - Abd Soft - GI Non distended Deferred - No abnormalities - Ext No significant edema - MSK Unremarkable - Neuro No focal deficits - Psych No abnormalities ASSESSMENT: Pt. is a 62 yo Right-handed white female.On 10/17/2017 she was admitted to [facility] with diagnosis Bilateral Tibial Plateau Fracture.Her impairment category is Orthopaedic Disord ers 08 - Other Orthopaedic (08.9).Pre-morbidly, Pt. was independent/mod-I in Sphincter Control, Castañeda sfers Control, Communication, Social Cognition, Self-Care, and Locomotion; and she had good Sphincter Control.Currently, she has deficits of Endurance, Safety Awareness, Transfers Control, Balance, Self -Care, and Locomotion.Pt. is now referred to [facility] for acute in-patient r ehabilitation in order to maximize patient's functional independence in activities of daily living, s trength, ROM, and mobility.- Rehab Goal Patient has realistic goal of being discharged at assistance level 6-Nestor to reside at Home with Fam ani/Relatives. MDM/PLAN: - Physical Therapy Decreased range of motion - to improve, our physical therapists will perform initial evaluation of p t's status upon admission and devise an individualized program for increasing patient's Range of [place] on. Gait dysfunction - to improve, our physical therapists will perform initial evaluation of pt's statu s upon admission and devise an individualized program for Gait Training, and Wheel Chair mobility Inability to transfer - to improve, our physical therapists will perform initial evaluation of pt's status upon admission and devise an individualized program for Bed mobility Need for home safety evaluation - to improve, our physical therapists will perform initial evaluatio n of pt's status upon admission and devise an individualized program for Home Evaluation Need in caregiver upon discharge - to improve, our physical therapists will perform initial evaluati on of pt's status upon admission and devise an individualized program for Caregiver Training New precaution - to improve, our physical therapists will perform initial evaluation of pt's status upon admission and devise an individualized program for Patient precaution education Edema - to improve, our physical therapists will perform initial evaluation of pt's status upon admi ssion and devise an individualized program for Elevation Training, and Lymphedema Therapy Poor balance - to improve, our physical therapists will perform initial evaluation of pt's status up on admission and devise an individualized program for Balance Training Poor endurance - to improve, our physical therapists will perform initial evaluation of pt's status upon admission and devise an individualized program for Endurance Training Weakness - to improve, our physical therapists will perform initial evaluation of pt's status upon a dmission and devise an individualized program for Aquatic Therapy, Neuromuscular Reeducation, and Str engthening Achieving independence - to improve, our physical therapists will perform initial evaluation of pt's status upon admission and devise an individualized program for Community Reintegration Activities - Diet Type Continue Regular - Diet - Liquid Texture Continue Regular - Tube Feed Continue N/A - Weight Bearing Precaution NWB both LE - Fall Precaution Bed and chair alarm - Skin care per protocol - Diet - Solid Texture Continue Regular - Shower allowing shower - Occupational Therapy ADL deficits - to improve, our occupation therapists will perform initial evaluation of pt's status upon admission and devise an individualized program for Bathing, Bed mobility, Community Reintegratio n, Cooking, Dressing, Eating, Fine Motor Skills, Grooming, Homemaking, Kitchen Mobility, Laundry, Pat ient Education, Safety Awareness, Splinting - Positioning, Transfers(Toilet, Tub, Shower), and Wheel Chair Management Need for childcare aide - to improve, our occupation therapists will perform initial evaluation of pt's status upon admission and devise an individualized program for Caregiver Training Weakness - to improve, our occupation therapists will perform initial evaluation of pt's status upon admission and devise an individualized program for Aquatic Therapy, Balance, Endurance, UE ROM, and UE strengthening FUNCTIONAL STATUS: UPDATED AT WEEKLY TEAM CONFERENCE - Bladder Same Bladder control device used: catheter Same accident frequency: 7-Ind - No accidents in the past 7 days - Bowel Same accident frequency: 7-Ind - No accidents in the past 7 days - Walking Same score based on distance walked: 0(N/A) - Wheelchair Same score based on distance traveled: 0(N/A) FUNCTIONAL STATUS: - Self-Care A. Eating sup B. Grooming sup C. Bathing Dep D. Dressing - Upper Dep E. Dressing - Lower Dep F. Toileting Dep - Sphincter Control G: Bladder control Dep H: Bowel control Nestor - Transfers Control I. Bed/Chair/Wheelchair Dep J. Toilet Dep K. Tub/Shower ADNO - Locomotion L. Walk/Wheelchair (C) Dep L. Walk/Wheelchair (W) ADNO M. Stairs ADNO - Communication N. Comprehension (B) Nestor O. Expression (B) Nestor - Social Cognition P. Social Interaction Nestor Q. Problem Solving Nestor R. Memory Nestor - Endurance Poor - Balance Poor - Safety Awareness Poor CURRENT FUNC. DEFICITS: Endurance, Safety Awareness, Transfers Control, Balance, Self-Care, and Locomotion SIGNATURE PANEL: (CDT)
--- NOTE | 2017-11-01 20:47 | P.PN ---
Date of Service: 10/31/17 Vital Signs Temp Pulse Resp BP Pulse Ox 98.1 F 76 16 146/69 H 98 11/01/17 20:00 11/01/17 20:00 11/01/17 20:00 11/01/17 20:00 11/01/17 20:00 Medications Albuterol Sulfate (Proventil 0.083% Neb Soln) 2.5 mg NEB [id number] PRN PRN Reason: SHORTNESS OF BREATH Stop: 11/24/17 20:01 Amlodipine Besylate (Norvasc) 5 mg PO DAILY SUSAN Stop: 11/29/17 08:01 Last Admin: 11/01/17 09:11 Dose: 5 mg Aspirin (Aspirin Chewable) 81 mg PO DAILY SUSAN Stop: 11/25/17 08:01 Last Admin: 11/01/17 09:10 Dose: 81 mg Bisacodyl (Dulcolax) 10 mg ND DAILY PRN PRN Reason: CONSTIPATION Stop: 11/24/17 20:25 Calcitriol (Rocaltrol) 0.5 mcg PO DAILY SUSAN Stop: 11/25/17 08:01 Last Admin: 11/01/17 09:12 Dose: 0.5 mcg Carvedilol (Coreg) 25 mg PO BID 6AM 6PM SUSAN Stop: 11/24/17 18:01 Last Admin: 11/01/17 17:30 Dose: 25 mg Cetirizine HCl (Zyrtec) 10 mg PO DAILY SUSAN Stop: 11/25/17 08:01 Last Admin: 11/01/17 09:10 Dose: 10 mg Cholecalciferol (Vitamin D 5,000 Iu Cap) 5,000 unit PO DAILY SUSAN Stop: 11/25/17 08:01 Last Admin: 11/01/17 09:10 Dose: 5,000 unit Docusate Sodium (Colace Cap) 100 mg PO BID SUSAN Stop: 11/24/17 20:01 Last Admin: 11/01/17 19:49 Dose: Not Given Enoxaparin Sodium (Lovenox 30 Mg Inj) 30 mg SQ DAILY SUSAN Stop: 11/24/17 16:01 Last Admin: 11/01/17 09:09 Dose: 30 mg Enteral Nutritional Formula (Nepro Shake) 237 ml PO BID SUSAN Stop: 11/28/17 20:01 Last Admin: 11/01/17 19:45 Dose: 237 ml Ferrous Sulfate (Feosol) 325 mg PO DAILY SUSAN Stop: 11/25/17 08:01 Last Admin: 11/01/17 09:12 Dose: 325 mg Gabapentin (Neurontin) 300 mg PO BID SUSAN Stop: 11/27/17 20:01 Last Admin: 11/01/17 19:45 Dose: 300 mg Home Med (Home Med) 1 ea IH DAILY SUSAN Stop: 11/25/17 08:01 Hydralazine HCl (Apresoline) 100 mg PO TID SUSAN Stop: 11/24/17 21:01 Last Admin: 11/01/17 14:25 Dose: 100 mg Isosorbide Mononitrate (Imdur) 30 mg PO BID SUSAN Stop: 11/25/17 08:01 Last Admin: 11/01/17 19:43 Dose: 30 mg Lactobacillus Acidoph/Bulgaricus (Lactinex) 1 tab PO DAILY SUSAN Stop: 11/26/17 08:01 Last Admin: 11/01/17 09:10 Dose: 1 tab Magnesium Hydroxide (Milk Of Magnesia) 30 ml PO BID PRN PRN Reason: CONSTIPATION Stop: 11/24/17 20:25 Magnesium Oxide (Mag 0x Tab) 400 mg PO DAILY SUSAN Stop: 11/25/17 08:01 Last Admin: 11/01/17 09:12 Dose: 400 mg Mirtazapine (Remeron) 15 mg PO BEDTIME SUSAN Stop: 11/24/17 21:01 Last Admin: 10/31/17 21:25 Dose: 15 mg Multivitamins/Iron (Hemocyte Plus) 1 tab PO DAILY WITH BREAKFAST SUSAN Stop: 11/25/17 08:01 Last Admin: 11/01/17 09:10 Dose: 1 tab Nutritional Formula (Promod Liquid Protein) 30 ml PO BID SUSAN Stop: 11/27/17 20:01 Last Admin: 11/01/17 19:44 Dose: 30 ml Pantoprazole Sodium (Protonix Tab) 40 mg PO ACB SUSAN Stop: 11/25/17 07:31 Last Admin: 11/01/17 09:10 Dose: 40 mg Senna/Docusate Sodium (Senokot-S) 2 tab PO BEDTIME PRN PRN Reason: CONSTIPATION Stop: 11/24/17 20:25 Sodium Biphosphate/Sodium Phosphate (Fleet Enema Adult) 133 ml ND DAILY PRN PRN Reason: CONSTIPATION Stop: 11/24/17 20:26 Tamsulosin HCl (Flomax) 0.4 mg PO BEDTIME SUSAN Stop: 11/27/17 21:01 Last Admin: 10/31/17 21:25 Dose: 0.4 mg Tramadol HCl (Ultram) 50 mg PO Q4HP PRN PRN Reason: PAIN Stop: 11/24/17 22:19 Last Admin: 11/01/17 19:42 Dose: 50 mg Trazodone HCl (Desyrel) 150 mg PO BEDTIME SUSAN Stop: 11/24/17 21:01 Last Admin: 10/31/17 21:24 Dose: 150 mg Microbiology Results 10/30/17 05:27 Clean Catch Urine Rosalia Count - Preliminary >100,000 CFU/ML. 10/30/17 05:27 Clean Catch Urine - Preliminary Escherichia Coli 10/29/17 16:40 Stool Occult Blood - Final 10/25/17 20:15 Clean Catch Urine Rosalia Count - Final <10,000 CFU/ML. 10/25/17 20:15 Clean Catch Urine - Final Assessment/ Plan: Nephrology CPS stable without CP or SOB. No acute events overnight. Doing well. +Appetite Vitals, medications, blood work and imaging reviewed in the chart. General: Alert, Oriented x3, Cooperative HEENT: Atraumatic, Mucous membr. moist/pink Neck: Supple Respiratory: Clear to auscultation bilaterally Cardiovascular: LE edema 1+ L>R, Regular rate/rhythm, No rubs Gastrointestinal: Soft and benign, Non-distended, No guarding Musculoskeletal: No clubbing, No contractures Integumentary: No rashes, No cyanosis Neurological: Normal speech Laboratory Data (last 24 hrs) 10/17/17 13:05: PT 11.2, INR 0.95, APTT 27.2 10/17/17 13:05: WBC 9.1 D, Hgb 9.5 L, Hct 29.8 L, Plt Count 217 D 10/17/17 13:05: B-Natriuretic Peptide 449 H 10/17/17 13:05: Sodium 135, Potassium 4.0, BUN 33 H, Creatinine 2.09 H, Glucose 89, Magnesium 2.3 D, Total Bilirubin < 0.1 L, AST 13, ALT 7 L, Alkaline Phosphatase 51, Lipase 18 L Imagings Data: EXAM DESCRIPTION: RAD - Chest Single View - 10/17/2017 12:50 pm CLINICAL HISTORY: Cough COMPARISON: 02/05/2016 FINDINGS: Portable technique limits examination quality. The lungs are emphysematous but grossly clear. The heart is normal in size. No displaced fractures. IMPRESSION: No acute intrathoracic process suspected. Conclusions/Impression: A/ MINDI/ CKD IV. Acidosis. Hyponatremia. HTN with CKD. Diastolic CHF, chronic. Anemia in chronic illness. Iron deficiency. Multiple LE traumatic fractures sp fall. Chronic pain syndrome. Slow transit constipation. P/ Continue current POC and Medications. Encourage PT as tolerated. Pain control as needed. AM labs. Daily weight. No NSAIDs.
[2017-11-01] MEDS: TRAZODONE 150 MG TAB PO SCH (21:06)
[2017-11-01] MEDS: TAMSULOSIN 0.4 MG SR CAP PO SCH (21:06)
[2017-11-01] MEDS: MIRTAZAPINE 15 MG TAB PO SCH (21:06)
--- NOTE | 2017-11-02 04:56 | FAST ---
SHIFT START DATE/TIME: 11/01/2017 19:00 (CDT) SHIFT END DATE/TIME: 11/02/2017 07:00 (CDT) NAME CHARIS MCKEON DATE OF : 1955 DATE OF ADMISSION: 10/25/2017 14:59 (CDT) PHONE: AGE: 62 N# [id number] GENDER: Female ENCOUNTER PHYSICIAN: Dr. Marino Villar M.D. ADMISSION DIAGNOSIS: - Orthopaedic Disorders 08 - Other Orthopaedic (08.9) Bilateral Tibial Plateau Fracture. EATING: Activity did not occur on this shift EATING - SCORE: 0-UNK GROOMING: Activity did not occur on this shift GROOMING - SCORE: 0-UNK BATHING: Activity did not occur on this shift BATHING - SCORE: 0-UNK DRESSING - UPPER BODY: Activity did not occur on this shift ARTICLES SCORE Total number of steps: 0 DRESSING - UPPER BODY - SCORE: 0-UNK DRESSING - LOWER BODY: Activity did not occur on this shift ARTICLES SCORE Total number of steps: 0 DRESSING - LOWER BODY - SCORE: 0-UNK TOILETING: TOILETING - STEP 1: Does the patient require assistance with toileting? Yes. TOILETING - STEP 2: Does the patient require the assistance of a helper? Yes. TOILETING - STEP 3: How much assistance does the patient require from the helper? Hands-on assistance from the helper TOILETING - STEP 4: Of the 3 tasks: 1) Adjusting clothing prior to use, 2) Cleansing of perineal area, 3) Adjusting clot toby after use; How many tasks does the patient perform WITHOUT assistance of the helper? One task TOILETING - SCORE: 2-MAX BLADDER MANAGEMENT: BLADDER MANAGEMENT - STEP 1: Does the patient control the bladder completely and intentionally without equipment or devices or med ications, and is always continent? No. BLADDER MANAGEMENT - STEP 2: Does the patient require the assistance of a helper? Yes. BLADDER MANAGEMENT - STEP 3: How much assistance does the patient require from the helper? Patient requires contact assistance fro m the helper BLADDER MANAGEMENT - STEP 4: How much contact assistance does the patient require from the helper? Patient requires minimal assist ance to maintain an external device - by positioning, and the patient performs 75% or more of bladder management tasks, while the helper provides less than 25% of the assistance to position patient on / off bedpan BLADDER MANAGEMENT - SCORE: 4-MIN BLADDER MANAGEMENT - FREQUENCY OF ACCIDENTS: BLADDER MANAGEMENT(FA) - STEP 1: How many accidents has the patient had during the current shift? 0 BOWEL MANAGEMENT: Activity did not occur on this shift BOWEL MANAGEMENT - SCORE: 7-IND BOWEL MANAGEMENT - FREQUENCY OF ACCIDENTS: BOWEL MANAGEMENT(FA) - STEP 1: How many accidents has the patient had during the current shift? 0 TRANSFERS: BED, CHAIR, WHEELCHAIR: Activity did not occur on this shift TRANSFERS: BED, CHAIR, WHEELCHAIR - SCORE: 0-UNK TRANSFERS: TOILET: Activity did not occur on this shift TRANSFERS: TOILET - SCORE: 0-UNK TRANSFERS: SHOWER: Activity did not occur on this shift TRANSFERS: SHOWER - SCORE: 0-UNK TRANSFERS: TUB: Activity did not occur on this shift TRANSFERS: TUB - SCORE: 0-UNK LOCOMOTION: WALK: Activity did not occur on this shift LOCOMOTION: WALK - SCORE: 0-UNK LOCOMOTION: WHEELCHAIR: Activity did not occur on this shift LOCOMOTION: WHEELCHAIR - SCORE: 0-UNK COMPREHENSION: COMPREHENSION: TYPE: Both COMPREHENSION - STEP 1: Does the patient require help to understand complex and abstract ideas (such as current events, finan pari, discharge planning, medical issues, relationships, etc)? No. COMPREHENSION - STEP 2: Does the patient need extra time, require an assistive device (such as glasses, hearing aids, or an a ugmentative communication system), OR does s/he have mild difficulty expressing complex and abstract ideas (including mild dysarthria or mild word-finding problems)? Yes. COMPREHENSION - SCORE: 6-DANIEL EXPRESSION EXPRESSION: TYPE: Both EXPRESSION - STEP 1: Does the patient require help expressing complex and abstract ideas (such as current events, finances , discharge planning, medical issues, relationships, etc)? No. EXPRESSION - STEP 2: Does the patient need extra time, require an assistive device (such as augmentive communication syste m or a communication board), OR does s/he have mild difficulty expressing complex and abstract ideas (including mild dysarthria or mild word-find problems)? Yes. EXPRESSION - SCORE: 6-DANIEL SOCIAL INTERACTION: SOCIAL INTERACTION - STEP 1: Does the patient require a helper to interact with others in social and therapeutic situations? No. SOCIAL INTERACTION - STEP 2: Does the patient need extra time in social situations, OR does s/he interact with staff, other patien ts, and family members ONLY in structured environments, OR does s/he require medication for social in teraction? Yes, patient requires medication for social interaction SOCIAL INTERACTION - SCORE: 6-DANIEL PROBLEM SOLVING: PROBLEM SOLVING - STEP 1: Does the patient need help to solve complex problems such as managing a checking account or confronti ng interpersonal problems? No. PROBLEM SOLVING - STEP 2: Does the patient require extra time to make decisions or solve problems, OR does s/he have slight dif ficulty reading, initiating, or self-correcting in unfamiliar situations? Yes, patient needs extra ti me. PROBLEM SOLVING - SCORE: 6-DANIEL MEMORY: MEMORY - STEP 1: Does the patient need help to remember frequently encountered people, daily routines, and executing r equests? No. MEMORY - STEP 2: Does the patient have slight difficulty recognizing frequently encountered people, daily routines, or executing requests without the need for repetition or using self-initiated or environmental cues to remember? Yes. MEMORY - SCORE: 6-DANIEL SIGNATURE PANEL: The following modified sections: Eating - Score, Grooming - Score, Bathing - Score, Dressing - Upper Body - Score, Dressing - Lower Body - Score, Toileting - Score, Bladder Management - Score, Bowel Man agement - Score, Transfers: Bed, Chair, Wheelchair - Score, Transfers: Toilet - Score, Transfers: Charlene wer - Score, Transfers: Tub - Score, Locomotion: Walk - Score, Locomotion: Wheelchair - Score, Compre hension - Score, Expression - Score, Social Interaction - Score, Problem Solving - Score, Memory - Sc ore were [electronically] signed by Karen Lantigua RN on TueNov 02 2017 03:56:40 GMT-0500 (Centra l Daylight Time)
[2017-11-02] MEDS: CARVEDILOL 25 MG TAB PO SCH ×2 (05:18→17:10)
[2017-11-02 05:20] LABS: Absolute Lymphocytes (CBC) 0.9 K/uL (0.7-4.9); Absolute Monocytes 0.5 K/uL (0.1-1.3); Absolute Neutrophil 4.1 K/uL (1.8-8.0); Basophils % 0.2 % (0-1.3); Eosinophils % 6.4 % (0-4.4); Hematocrit 24.8 % (36.0-45.0); Lymphocytes % 14.9 % (15.3-44.8); MCV 89.8 fL (80-100); MPV 7.2 fL (7.6-11.3); Monocytes % 8.3 % (3.3-12.3); RBC Red Blood Cell Count 2.77 M/uL (3.86-4.86)
[2017-11-02 05:40] LABS: AST/SGOT 18 U/L (15-37); Albumin 2.3 g/dL (3.4-5.0); Alkaline Phosphatase 79 U/L (45-117); BUN Blood Urea Nitrogen 70 mg/dL (7-18); Bicarbonate 35 mmol/L (21-32); Bilirubin Total 0.4 mg/dL (0.2-1.0); Glucose Level 83 mg/dL (74-106); Phosphorus 4.3 mg/dL (2.5-4.9); Protein, Total 4.7 g/dL (6.4-8.2); Sodium Level 137 mmol/L (136-145); Uric Acid 9.3 mg/dL (2.6-6.0)
[2017-11-02 05:49] LABS: ALT/SGPT < 6 U/L (12-78)
[2017-11-02] MEDS: NEPRO SHAKE 237 ML CAN PO SCH ×2 (08:00→20:00)
[2017-11-02] MEDS: PROMOD 30 ML DOSE PO SCH ×2 (08:00→21:05)
[2017-11-02] MEDS: CRANBERRY FRUIT EXTRACT 200 MG CAP PO SCH ×2 (08:00→21:03)
[2017-11-02] MEDS: DOCUSATE NA 100 MG CAP PO SCH ×2 (08:00→21:02)
[2017-11-02] MEDS: PANTOPRAZOLE 40MG TABLET PO SCH (08:30)
[2017-11-02] MEDS: ENOXAPARIN 30 MG/0.3 ML SQ SCH (08:45)
[2017-11-02] MEDS: GABAPENTIN 300 MG CAP PO SCH ×2 (08:46→21:01)
[2017-11-02] MEDS: CETIRIZINE HCL 5 MG TABLET PO SCH (08:46)
[2017-11-02] MEDS: ASPIRIN 81 MG CHEWABLE TABLET PO SCH (08:46)
[2017-11-02] MEDS: MAGNESIUM OXIDE 400 MG TAB PO SCH (08:46)
[2017-11-02] MEDS: FE SULF/FA/VIT B COMP & C TAB PO SCH (08:46)
[2017-11-02] MEDS: VITAMIN D 5,000 UNIT CAP PO SCH (08:46)
[2017-11-02] MEDS: LACTOBACILLUS/ACIDOPHILUS TAB PO SCH (08:46)
[2017-11-02] MEDS: CALCITROL 0.25 MCG CAP PO SCH (08:46)
[2017-11-02] MEDS: HYDRALAZINE HCL 25 MG TABLET PO SCH ×3 (08:47→21:03)
[2017-11-02] MEDS: FERROUS SULFATE 325 MG TAB PO SCH (08:47)
[2017-11-02] MEDS: ISOSORBIDE MONO SR 30 MG TAB PO SCH ×2 (08:47→21:02)
[2017-11-02] MEDS: AMLODIPINE 5 MG TAB PO SCH (08:47)
[2017-11-02] MEDS: TRAMADOL HCL 50 MG TAB PO PRN ×3 (08:47→21:03)
--- NOTE | 2017-11-02 15:27 | FAST ---
SHIFT START DATE/TIME: 11/02/2017 07:00 (CDT) SHIFT END DATE/TIME: 11/02/2017 19:00 (CDT) NAME CHARIS MCKEON DATE OF : 1955 DATE OF ADMISSION: 10/25/2017 14:59 (CDT) PHONE: AGE: 62 N# [id number] GENDER: Female ENCOUNTER PHYSICIAN: Dr. Marino Villar M.D. ADMISSION DIAGNOSIS: - Orthopaedic Disorders 08 - Other Orthopaedic (08.9) Bilateral Tibial Plateau Fracture. EATING: EATING - STEP 1: Does the patient require assistance when eating? Yes. EATING - STEP 2: Does the patient require the assistance of a helper? Yes. EATING - STEP 3: Does the patient perform half or more of the eating tasks? Yes. EATING - STEP 4: Does the patient need only supervision, cuing, coaxing OR help to apply an orthosis OR help to cut fo od, open containers, pour liquids, or butter bread? Yes. EATING - SCORE: 5-SUP GROOMING: Comb/brush hair Oral care Wash, rinse, and dry face Wash, rinse, and dry hands GROOMING - STEP 1: Does the patient require assistance when grooming? Yes. GROOMING - STEP 2: Does the patient require the assistance of a helper? Yes. GROOMING - STEP 3: How much assistance does the patient require from the helper? Cuing, coaxing, instructions, or encour agement for completion of grooming GROOMING - SCORE: 5-SUP BATHING: Activity did not occur on this shift BATHING - SCORE: 0-UNK DRESSING - UPPER BODY: Activity did not occur on this shift ARTICLES SCORE Total number of steps: 0 DRESSING - UPPER BODY - SCORE: 0-UNK DRESSING - LOWER BODY: Activity did not occur on this shift ARTICLES SCORE Total number of steps: 0 DRESSING - LOWER BODY - SCORE: 0-UNK TOILETING: TOILETING - STEP 1: Does the patient require assistance with toileting? Yes. TOILETING - STEP 2: Does the patient require the assistance of a helper? Yes. TOILETING - STEP 3: How much assistance does the patient require from the helper? Hands-on assistance from the helper TOILETING - STEP 4: Of the 3 tasks: 1) Adjusting clothing prior to use, 2) Cleansing of perineal area, 3) Adjusting clot toby after use; How many tasks does the patient perform WITHOUT assistance of the helper? Three tasks with steadying assistance from the helper TOILETING - SCORE: 4-MIN BLADDER MANAGEMENT: BLADDER MANAGEMENT - STEP 1: Does the patient control the bladder completely and intentionally without equipment or devices or med ications, and is always continent? No. BLADDER MANAGEMENT - STEP 2: Does the patient require the assistance of a helper? No, patient requires and independently uses an a ssistive device, such as a urinal, bedpan, bedside commode, catheter, absorbent pad, or collecting de vice BLADDER MANAGEMENT - SCORE: 6-DANIEL BOWEL MANAGEMENT: Activity did not occur on this shift BOWEL MANAGEMENT - SCORE: 7-IND TRANSFERS: BED, CHAIR, WHEELCHAIR: Patient requires more than one helper and/or the use of a mechanical lift is utilized TRANSFERS: BED, CHAIR, WHEELCHAIR - SCORE: 1-DEP TRANSFERS: TOILET: Patient requires more than one helper and/or the use of a mechanical lift is utilized TRANSFERS: TOILET - SCORE: 1-DEP TRANSFERS: SHOWER: Activity did not occur on this shift TRANSFERS: SHOWER - SCORE: 0-UNK TRANSFERS: TUB: Activity did not occur on this shift TRANSFERS: TUB - SCORE: 0-UNK LOCOMOTION: WALK: Activity did not occur on this shift LOCOMOTION: WALK - SCORE: 0-UNK LOCOMOTION: WHEELCHAIR: Activity did not occur on this shift LOCOMOTION: WHEELCHAIR - SCORE: 0-UNK COMPREHENSION: COMPREHENSION - SCORE: 0-UNK EXPRESSION EXPRESSION - SCORE: 0-UNK SOCIAL INTERACTION: SOCIAL INTERACTION - SCORE: 0-UNK PROBLEM SOLVING: PROBLEM SOLVING - SCORE: 0-UNK MEMORY: MEMORY - SCORE: 0-UNK SIGNATURE PANEL: The following modified sections: Eating - Score, Grooming - Score, Bathing - Score, Dressing - Upper Body - Score, Dressing - Lower Body - Score, Toileting - Score, Bladder Management - Score, Bowel Man agement - Score, Transfers: Bed, Chair, Wheelchair - Score, Transfers: Toilet - Score, Transfers: Charlene wer - Score, Transfers: Tub - Score, Locomotion: Walk - Score, Locomotion: Wheelchair - Score, Compre hension - Score, Expression - Score, Social Interaction - Score, Problem Solving - Score, Memory - Sc ore were [electronically] signed by Riccardo Brunner on TueNov 02 2017 14:28:10 [facility]-0500 (Central Daylight Time)
--- NOTE | 2017-11-02 16:25 | FAST ---
ENCOUNTER DATE AND TIME: 11/02/2017 08:00 (CDT) NAME CHARIS MCKEON DATE OF : 1955 DATE OF ADMISSION: 10/25/2017 14:59 (CDT) PHONE: AGE: 62 N# [id number] GENDER: Female ENCOUNTER PHYSICIAN: Dr. Marino Villar M.D. ADMISSION DIAGNOSIS: - Orthopaedic Disorders 08 - Other Orthopaedic (08.9) Bilateral Tibial Plateau Fracture. EATING: Activity did not occur on this shift EATING - SCORE: 0-UNK GROOMING: Activity did not occur on this shift GROOMING - SCORE: 0-UNK BATHING: Activity did not occur on this shift BATHING - SCORE: 0-UNK DRESSING - UPPER BODY: Activity did not occur on this shift Patient is not dressing in public clothing ARTICLES SCORE Total number of steps: 0 DRESSING - UPPER BODY - SCORE: 0-UNK DRESSING - LOWER BODY: Activity did not occur on this shift Patient is not dressing in public clothing ARTICLES SCORE Total number of steps: 0 DRESSING - LOWER BODY - SCORE: 0-UNK TOILETING: Activity did not occur on this shift TOILETING - SCORE: 0-UNK BLADDER MANAGEMENT: Activity did not occur on this shift BLADDER MANAGEMENT - SCORE: 7-IND BOWEL MANAGEMENT: Activity did not occur on this shift BOWEL MANAGEMENT - SCORE: 7-IND TRANSFERS: BED, CHAIR, WHEELCHAIR: Activity did not occur on this shift TRANSFERS: BED, CHAIR, WHEELCHAIR - SCORE: 0-UNK TRANSFERS: TOILET: Activity did not occur on this shift TRANSFERS: TOILET - SCORE: 0-UNK TRANSFERS: SHOWER: Activity did not occur on this shift TRANSFERS: SHOWER - SCORE: 0-UNK TRANSFERS: TUB: Activity did not occur on this shift TRANSFERS: TUB - SCORE: 0-UNK LOCOMOTION: WALK: Activity did not occur on this shift LOCOMOTION: WALK - SCORE: 0-UNK LOCOMOTION: WHEELCHAIR: LOCOMOTION: WHEELCHAIR - STEP 1: Does the patient need help to go 150 feet in a wheelchair? No. LOCOMOTION: WHEELCHAIR - SCORE: 6-DANIEL LOCOMOTION: STAIRS: Activity did not occur on this shift LOCOMOTION: STAIRS - SCORE: 0-UNK COMPREHENSION: COMPREHENSION - SCORE: 0-UNK EXPRESSION EXPRESSION - SCORE: 0-UNK SOCIAL INTERACTION: SOCIAL INTERACTION - SCORE: 0-UNK PROBLEM SOLVING: PROBLEM SOLVING - SCORE: 0-UNK MEMORY: MEMORY - SCORE: 0-UNK SIGNATURE PANEL: The following modified sections: Transfers: Bed, Chair, Wheelchair - Score, Transfers: Toilet - Score , Locomotion: Walk - Score, Locomotion: Wheelchair - Score, Locomotion: Stairs - Score were [electron ically] signed by Aries Muhammad PTA on TueNov 02 2017 15:25:44 GMT-0500 (Central Daylight Time)
[2017-11-02] MEDS: DOXAZOSIN 2 MG TAB PO SCH (21:01)
[2017-11-02] MEDS: MIRTAZAPINE 15 MG TAB PO SCH (21:01)
[2017-11-02] MEDS: TRAZODONE 150 MG TAB PO SCH (21:03)
[2017-11-02] MEDS: SOD FERRIC GLUC COMPLX/SUCROSE 125 MG in NA CHLORIDE 0.9% 100 ML IV SCH (21:04)
--- NOTE | 2017-11-02 21:49 | P.PN ---
Date of Service: 11/02/17 Vital Signs Temp Pulse Resp BP Pulse Ox 97.6 F 70 18 166/72 H 97 11/02/17 20:00 11/02/17 21:01 11/02/17 20:00 11/02/17 21:01 11/02/17 20:00 Medications Albuterol Sulfate (Proventil 0.083% Neb Soln) 2.5 mg NEB [id number] PRN PRN Reason: SHORTNESS OF BREATH Stop: 11/24/17 20:01 Amlodipine Besylate (Norvasc) 5 mg PO DAILY SUSAN Stop: 11/29/17 08:01 Last Admin: 11/02/17 08:47 Dose: 5 mg Aspirin (Aspirin Chewable) 81 mg PO DAILY SUSAN Stop: 11/25/17 08:01 Last Admin: 11/02/17 08:46 Dose: 81 mg Bisacodyl (Dulcolax) 10 mg CO DAILY PRN PRN Reason: CONSTIPATION Stop: 11/24/17 20:25 Calcitriol (Rocaltrol) 0.5 mcg PO DAILY SUSAN Stop: 11/25/17 08:01 Last Admin: 11/02/17 08:46 Dose: 0.5 mcg Carvedilol (Coreg) 25 mg PO BID 6AM 6PM SUSAN Stop: 11/24/17 18:01 Last Admin: 11/02/17 17:10 Dose: 25 mg Cetirizine HCl (Zyrtec) 10 mg PO DAILY SUSAN Stop: 11/25/17 08:01 Last Admin: 11/02/17 08:46 Dose: 10 mg Cholecalciferol (Vitamin D 5,000 Iu Cap) 5,000 unit PO DAILY SUSAN Stop: 11/25/17 08:01 Last Admin: 11/02/17 08:46 Dose: 5,000 unit Docusate Sodium (Colace Cap) 100 mg PO BID SUSAN Stop: 11/24/17 20:01 Last Admin: 11/02/17 21:02 Dose: 100 mg Doxazosin Mesylate (Cardura) 1 mg PO BEDTIME SUSAN Stop: 12/02/17 21:01 Last Admin: 11/02/17 21:01 Dose: 1 mg Enoxaparin Sodium (Lovenox 30 Mg Inj) 30 mg SQ DAILY SUSAN Stop: 11/24/17 16:01 Last Admin: 11/02/17 08:45 Dose: 30 mg Enteral Nutritional Formula (Nepro Shake) 237 ml PO BID SUSAN Stop: 11/28/17 20:01 Last Admin: 11/02/17 20:00 Dose: Not Given Ferrous Sulfate (Feosol) 325 mg PO DAILY SUSAN Stop: 11/25/17 08:01 Last Admin: 11/02/17 08:47 Dose: 325 mg Gabapentin (Neurontin) 300 mg PO BID SUSAN Stop: 11/27/17 20:01 Last Admin: 11/02/17 21:01 Dose: 300 mg Home Med (Home Med) 1 ea IH DAILY SUSAN Stop: 11/25/17 08:01 Hydralazine HCl (Apresoline) 100 mg PO TID SUSAN Stop: 11/24/17 21:01 Last Admin: 11/02/17 21:03 Dose: 100 mg Ferric Sodium Gluconate Complex 125 mg/ Sodium Chloride 110 mls @ 100 mls/hr IV Q24H SUSAN Stop: 12/02/17 19:01 Last Admin: 11/02/17 21:04 Dose: 110 mls Isosorbide Mononitrate (Imdur) 30 mg PO BID SUSAN Stop: 11/25/17 08:01 Last Admin: 11/02/17 21:02 Dose: 30 mg Lactobacillus Acidoph/Bulgaricus (Lactinex) 1 tab PO DAILY SUSAN Stop: 11/26/17 08:01 Last Admin: 11/02/17 08:46 Dose: 1 tab Magnesium Hydroxide (Milk Of Magnesia) 30 ml PO BID PRN PRN Reason: CONSTIPATION Stop: 11/24/17 20:25 Magnesium Oxide (Mag 0x Tab) 400 mg PO DAILY SUSAN Stop: 11/25/17 08:01 Last Admin: 11/02/17 08:46 Dose: 400 mg Mirtazapine (Remeron) 15 mg PO BEDTIME SUSAN Stop: 11/24/17 21:01 Last Admin: 11/02/17 21:01 Dose: 15 mg Multivitamins/Iron (Hemocyte Plus) 1 tab PO DAILY WITH BREAKFAST SUSAN Stop: 11/25/17 08:01 Last Admin: 11/02/17 08:46 Dose: 1 tab Nutritional Formula (Promod Liquid Protein) 30 ml PO BID SUSAN Stop: 11/27/17 20:01 Last Admin: 11/02/17 21:05 Dose: 30 ml Pantoprazole Sodium (Protonix Tab) 40 mg PO ACB SUSAN Stop: 11/25/17 07:31 Last Admin: 11/02/17 08:30 Dose: 40 mg Senna/Docusate Sodium (Senokot-S) 2 tab PO BEDTIME PRN PRN Reason: CONSTIPATION Stop: 11/24/17 20:25 Sodium Biphosphate/Sodium Phosphate (Fleet Enema Adult) 133 ml CO DAILY PRN PRN Reason: CONSTIPATION Stop: 11/24/17 20:26 Tramadol HCl (Ultram) 50 mg PO Q4HP PRN PRN Reason: PAIN Stop: 11/24/17 22:19 Last Admin: 11/02/17 21:03 Dose: 50 mg Trazodone HCl (Desyrel) 150 mg PO BEDTIME SUSAN Stop: 11/24/17 21:01 Last Admin: 11/02/17 21:03 Dose: 150 mg Lab Results (last 24 hrs) 11/02/17 05:05: Sodium 137, Potassium 5.0, Chloride 100, Carbon Dioxide 35 H, BUN 70 H, Creatinine 2.30 H, Estimated GFR 22 L, Glucose 83, Uric Acid 9.3 H, Calcium 8.9, Phosphorus 4.3, Magnesium 2.0, Total Bilirubin 0.4, AST 18, ALT < 6 L, Alkaline Phosphatase 79, Serum Total Protein 4.7 L, Albumin 2.3 L, Globulin 2.4, Albumin/Globulin Ratio 1.0 L 11/02/17 05:05: WBC 5.9, RBC 2.77 L, Hgb 8.0 L, Hct 24.8 L, MCV 89.8, MCH 29.0, MCHC 32.3, RDW 16.3 H, Plt Count 303, MPV 7.2 L, Neutrophils % 70.2, Lymphocytes % 14.9 L, Monocytes % 8.3, Eosinophils % 6.4 H, Basophils % 0.2, Absolute Neutrophils 4.1, Absolute Lymphocytes 0.9, Absolute Monocytes 0.5, Absolute Eosinophils 0.4, Absolute Basophils 0.0 Microbiology Results 10/30/17 05:27 Clean Catch Urine [place] Count - Preliminary >100,000 CFU/ML. 10/30/17 05:27 Clean Catch Urine - Preliminary Escherichia Coli Enterococcus Faecalis 10/29/17 16:40 Stool Occult Blood - Final 10/25/17 20:15 Clean Catch Urine [place] Count - Final <10,000 CFU/ML. 10/25/17 20:15 Clean Catch Urine - Final Assessment/ Plan: Nephrology CPS stable without CP or SOB. No acute events overnight. Doing well. +Appetite Vitals, medications, blood work and imaging reviewed in the chart. General: Alert, Oriented x3, Cooperative HEENT: Atraumatic, Mucous membr. moist/pink Neck: Supple Respiratory: Clear to auscultation bilaterally Cardiovascular: LE edema 1+ L>R, Regular rate/rhythm, No rubs Gastrointestinal: Soft and benign, Non-distended, No guarding Musculoskeletal: No clubbing, No contractures Integumentary: No rashes, No cyanosis Neurological: Normal speech Laboratory Data (last 24 hrs) 10/17/17 13:05: PT 11.2, INR 0.95, APTT 27.2 10/17/17 13:05: WBC 9.1 D, Hgb 9.5 L, Hct 29.8 L, Plt Count 217 D 10/17/17 13:05: B-Natriuretic Peptide 449 H 10/17/17 13:05: Sodium 135, Potassium 4.0, BUN 33 H, Creatinine 2.09 H, Glucose 89, Magnesium 2.3 D, Total Bilirubin < 0.1 L, AST 13, ALT 7 L, Alkaline Phosphatase 51, Lipase 18 L Imagings Data: EXAM DESCRIPTION: RAD - Chest Single View - 10/17/2017 12:50 pm CLINICAL HISTORY: Cough COMPARISON: 02/05/2016 FINDINGS: Portable technique limits examination quality. The lungs are emphysematous but grossly clear. The heart is normal in size. No displaced fractures. IMPRESSION: No acute intrathoracic process suspected. Conclusions/Impression: A/ MINDI/ CKD IV. Acidosis. Hyponatremia. HTN with CKD. Diastolic CHF, chronic. Anemia in chronic illness. Iron deficiency. Multiple LE traumatic fractures sp fall. Chronic pain syndrome. Slow transit constipation. P/ Continue current POC and Medications. Give IV iron. Discontinue Flomax and start Doxazosin; titrate as needed. Encourage PT as tolerated. Pain control as needed. AM labs. Daily weight. No NSAIDs.
--- NOTE | 2017-11-03 03:26 | FAST ---
SHIFT START DATE/TIME: 11/02/2017 19:00 (CDT) SHIFT END DATE/TIME: 11/03/2017 07:00 (CDT) NAME CHARIS MCKEON DATE OF : 1955 DATE OF ADMISSION: 10/25/2017 14:59 (CDT) PHONE: AGE: 62 N# [id number] GENDER: Female ENCOUNTER PHYSICIAN: Dr. Marino Villar M.D. ADMISSION DIAGNOSIS: - Orthopaedic Disorders 08 - Other Orthopaedic (08.9) Bilateral Tibial Plateau Fracture. EATING: Activity did not occur on this shift EATING - SCORE: 0-UNK GROOMING: Activity did not occur on this shift GROOMING - SCORE: 0-UNK BATHING: Activity did not occur on this shift BATHING - SCORE: 0-UNK DRESSING - UPPER BODY: Activity did not occur on this shift ARTICLES SCORE Total number of steps: 0 DRESSING - UPPER BODY - SCORE: 0-UNK DRESSING - LOWER BODY: Activity did not occur on this shift ARTICLES SCORE Total number of steps: 0 DRESSING - LOWER BODY - SCORE: 0-UNK TOILETING: TOILETING - STEP 1: Does the patient require assistance with toileting? Yes. TOILETING - STEP 2: Does the patient require the assistance of a helper? Yes. TOILETING - STEP 3: How much assistance does the patient require from the helper? Hands-on assistance from the helper TOILETING - STEP 4: Of the 3 tasks: 1) Adjusting clothing prior to use, 2) Cleansing of perineal area, 3) Adjusting clot toby after use; How many tasks does the patient perform WITHOUT assistance of the helper? No tasks; h elper performs all three tasks TOILETING - SCORE: 1-DEP BLADDER MANAGEMENT: Patient depends entirely on [place] when using bedpan [helper rolls patient onto side / side-lying pos ition; positions bedpan; assists patient to roll onto bedpan; holds bedpan in place; assists patient off bedpan]. BLADDER MANAGEMENT - SCORE: 1-DEP BOWEL MANAGEMENT: Patient requires assistance from two helpers when using bedpan for BM. BOWEL MANAGEMENT - SCORE: 1-DEP TRANSFERS: BED, CHAIR, WHEELCHAIR: TRANSFERS: BED, CHAIR, WHEELCHAIR - STEP 1: Does the patient require assistance with bed, chair, or wheelchair transfers? Yes. TRANSFERS: BED, CHAIR, WHEELCHAIR - STEP 2: Does the patient require the assistance of a helper? Yes. TRANSFERS: BED, CHAIR, WHEELCHAIR - STEP 3: How much assistance does the patient require from the helper? Lifting of the patient TRANSFERS: BED, CHAIR, WHEELCHAIR - STEP 4: Does the helper lift the patient ONLY up? ONLY down? Up AND Down? Patient needs help with all lifting TRANSFERS: BED, CHAIR, WHEELCHAIR - SCORE: 1-DEP TRANSFERS: TOILET: TRANSFERS: TOILET - STEP 1: Does the patient require assistance with toilet transfers? Yes. TRANSFERS: TOILET - STEP 2: Does the patient require the assistance of a helper? Yes. TRANSFERS: TOILET - STEP 3: How much assistance does the patient require from the helper? Patient performs less than half of the transferring tasks TRANSFERS: TOILET - STEP 4: Does the patient require total assistance for the toilet transfer such as the helper doing basically all the lifting? Yes. TRANSFERS: TOILET - SCORE: 1-DEP TRANSFERS: SHOWER: Activity did not occur on this shift TRANSFERS: SHOWER - SCORE: 0-UNK TRANSFERS: TUB: Activity did not occur on this shift TRANSFERS: TUB - SCORE: 0-UNK LOCOMOTION: WALK: Activity did not occur on this shift LOCOMOTION: WALK - SCORE: 0-UNK LOCOMOTION: WHEELCHAIR: Activity did not occur on this shift LOCOMOTION: WHEELCHAIR - SCORE: 0-UNK COMPREHENSION: COMPREHENSION - STEP 1: Does the patient require help to understand complex and abstract ideas (such as current events, finan pari, discharge planning, medical issues, relationships, etc)? No. COMPREHENSION - STEP 2: Does the patient need extra time, require an assistive device (such as glasses, hearing aids, or an a ugmentative communication system), OR does s/he have mild difficulty expressing complex and abstract ideas (including mild dysarthria or mild word-finding problems)? Yes. COMPREHENSION - SCORE: 6-DANIEL EXPRESSION EXPRESSION - STEP 1: Does the patient require help expressing complex and abstract ideas (such as current events, finances , discharge planning, medical issues, relationships, etc)? No. EXPRESSION - STEP 2: Does the patient need extra time, require an assistive device (such as augmentive communication syste m or a communication board), OR does s/he have mild difficulty expressing complex and abstract ideas (including mild dysarthria or mild word-find problems)? Yes. EXPRESSION - SCORE: 6-DANIEL SOCIAL INTERACTION: SOCIAL INTERACTION - STEP 1: Does the patient require a helper to interact with others in social and therapeutic situations? No. SOCIAL INTERACTION - STEP 2: Does the patient need extra time in social situations, OR does s/he interact with staff, other patien ts, and family members ONLY in structured environments, OR does s/he require medication for social in teraction? Yes, patient requires medication for social interaction SOCIAL INTERACTION - SCORE: 6-DANIEL PROBLEM SOLVING: PROBLEM SOLVING - STEP 1: Does the patient need help to solve complex problems such as managing a checking account or confronti ng interpersonal problems? No. PROBLEM SOLVING - STEP 2: Does the patient require extra time to make decisions or solve problems, OR does s/he have slight dif ficulty reading, initiating, or self-correcting in unfamiliar situations? Yes, patient needs extra ti me. PROBLEM SOLVING - SCORE: 6-DANIEL MEMORY: MEMORY - STEP 1: Does the patient need help to remember frequently encountered people, daily routines, and executing r equests? No. MEMORY - STEP 2: Does the patient have slight difficulty recognizing frequently encountered people, daily routines, or executing requests without the need for repetition or using self-initiated or environmental cues to remember? Yes. MEMORY - SCORE: 6-DANIEL SIGNATURE PANEL: The following modified sections: Eating - Score, Grooming - Score, Bathing - Score, Dressing - Upper Body - Score, Dressing - Lower Body - Score, Toileting - Score, Bladder Management - Score, Bowel Man agement - Score, Transfers: Bed, Chair, Wheelchair - Score, Transfers: Toilet - Score, Transfers: Charlene wer - Score, Transfers: Tub - Score, Locomotion: Walk - Score, Locomotion: Wheelchair - Score, Compre hension - Score, Expression - Score, Social Interaction - Score, Problem Solving - Score, Memory - Sc ore were [electronically] signed by Bri Walton RN on TueNov 03 2017 02:26:21 T-0500 ([facility] Time)
[2017-11-03] MEDS: CARVEDILOL 25 MG TAB PO SCH ×2 (05:20→17:19)
[2017-11-03 05:59] LABS: Absolute Lymphocytes (CBC) 0.7 K/uL (0.7-4.9); Absolute Monocytes 0.5 K/uL (0.1-1.3); Absolute Neutrophil 4.4 K/uL (1.8-8.0); Basophils % 1.4 % (0-1.3); Eosinophils % 5.9 % (0-4.4); Lymphocytes % 11.9 % (15.3-44.8); MCH 29.1 pg (27.0-35.0); MCV 90.4 fL (80-100); MPV 7.2 fL (7.6-11.3); Monocytes % 8.9 % (3.3-12.3); RBC Red Blood Cell Count 3.09 M/uL (3.86-4.86)
[2017-11-03 06:12] LABS: Albumin 2.5 g/dL (3.4-5.0); Magnesium 2.1 mg/dL (1.8-2.4); Prealbumin 17.5 mg/dL (20-40)
[2017-11-03] MEDS: DOCUSATE NA 100 MG CAP PO SCH ×2 (08:00→20:31)
[2017-11-03] MEDS: NEPRO SHAKE 237 ML CAN PO SCH ×2 (08:00→20:00)
[2017-11-03] MEDS: PANTOPRAZOLE 40MG TABLET PO SCH (08:30)
[2017-11-03] MEDS: FE SULF/FA/VIT B COMP & C TAB PO SCH (09:00)
[2017-11-03] MEDS: ENOXAPARIN 30 MG/0.3 ML SQ SCH (09:00)
[2017-11-03] MEDS: ISOSORBIDE MONO SR 30 MG TAB PO SCH ×2 (09:00→20:31)
[2017-11-03] MEDS: GABAPENTIN 300 MG CAP PO SCH ×2 (09:00→20:30)
[2017-11-03] MEDS: FERROUS SULFATE 325 MG TAB PO SCH (09:00)
[2017-11-03] MEDS: AMLODIPINE 5 MG TAB PO SCH (09:00)
[2017-11-03] MEDS: LACTOBACILLUS/ACIDOPHILUS TAB PO SCH (09:00)
[2017-11-03] MEDS: CALCITROL 0.25 MCG CAP PO SCH (09:00)
[2017-11-03] MEDS: CETIRIZINE HCL 5 MG TABLET PO SCH (09:00)
[2017-11-03] MEDS: VITAMIN D 5,000 UNIT CAP PO SCH (09:00)
[2017-11-03] MEDS: PROMOD 30 ML DOSE PO SCH ×2 (09:00→20:32)
[2017-11-03] MEDS: MAGNESIUM OXIDE 400 MG TAB PO SCH (09:00)
[2017-11-03] MEDS: CRANBERRY FRUIT EXTRACT 200 MG CAP PO SCH ×2 (09:00→20:30)
[2017-11-03] MEDS: ASPIRIN 81 MG CHEWABLE TABLET PO SCH (09:00)
[2017-11-03] MEDS: TRAMADOL HCL 50 MG TAB PO PRN ×3 (09:04→20:30)
[2017-11-03] MEDS: HYDRALAZINE HCL 25 MG TABLET PO SCH ×3 (09:16→20:30)
--- NOTE | 2017-11-03 15:45 | RAD REPORT ---
EXAM DESCRIPTION: RAD - Knee Left 2 View - 11/03/2017 3:32 pm CLINICAL HISTORY: Tibial fracture FINDINGS: Plate and screws a fix a proximal tibial fracture. Some displacement of fracture fragments persists. A fibular neck fracture is again demonstrated
--- NOTE | 2017-11-03 15:52 | RAD REPORT ---
EXAM DESCRIPTION: RAD - Knee Right 2 View - 11/03/2017 3:32 pm CLINICAL HISTORY: Tibial fracture FINDINGS: Since October 17, 2017 there has been mild interval healing of the lateral tibial plateau frac ture extending to the tibial tubercle. The hemarthrosis has diminished in size. No dislocation is noted
--- NOTE | 2017-11-03 16:24 | FAST ---
SHIFT START DATE/TIME: 11/03/2017 07:00 (CDT) SHIFT END DATE/TIME: 11/03/2017 19:00 (CDT) NAME CHARIS MCKEON DATE OF : 1955 DATE OF ADMISSION: 10/25/2017 14:59 (CDT) PHONE: AGE: 62 N# [id number] GENDER: Female ENCOUNTER PHYSICIAN: Dr. Marino Villar M.D. ADMISSION DIAGNOSIS: - Orthopaedic Disorders 08 - Other Orthopaedic (08.9) Bilateral Tibial Plateau Fracture. EATING: EATING - STEP 1: Does the patient require assistance when eating? Yes. EATING - STEP 2: Does the patient require the assistance of a helper? No, patient only requires an assistive device, O R s/he takes more than reasonable time to eat, OR there is a safety concern, OR s/he requires modifie d food consistency EATING - SCORE: 6-DANIEL GROOMING: Comb/brush hair Oral care GROOMING - STEP 1: Does the patient require assistance when grooming? Yes. GROOMING - STEP 2: Does the patient require the assistance of a helper? Yes. GROOMING - STEP 3: How much assistance does the patient require from the helper? Only prior equipment preparation/set up from the helper GROOMING - SCORE: 5-SUP BATHING: Activity did not occur on this shift BATHING - SCORE: 0-UNK DRESSING - UPPER BODY: Activity did not occur on this shift ARTICLES SCORE Total number of steps: 0 DRESSING - UPPER BODY - SCORE: 0-UNK DRESSING - LOWER BODY: Activity did not occur on this shift ARTICLES SCORE Total number of steps: 0 DRESSING - LOWER BODY - SCORE: 0-UNK TOILETING: TOILETING - STEP 1: Does the patient require assistance with toileting? Yes. TOILETING - STEP 2: Does the patient require the assistance of a helper? Yes. TOILETING - STEP 3: How much assistance does the patient require from the helper? Hands-on assistance from the helper TOILETING - STEP 4: Of the 3 tasks: 1) Adjusting clothing prior to use, 2) Cleansing of perineal area, 3) Adjusting clot toby after use; How many tasks does the patient perform WITHOUT assistance of the helper? No tasks; h oliver performs all three tasks TOILETING - SCORE: 1-DEP BLADDER MANAGEMENT: BLADDER MANAGEMENT - STEP 1: Does the patient control the bladder completely and intentionally without equipment or devices or med ications, and is always continent? No. BLADDER MANAGEMENT - STEP 2: Does the patient require the assistance of a helper? No, patient requires and independently uses an a ssistive device, such as a urinal, bedpan, bedside commode, catheter, absorbent pad, or collecting de vice BLADDER MANAGEMENT - SCORE: 6-DANIEL BOWEL MANAGEMENT: BOWEL MANAGEMENT - STEP 1: Does the patient control bowels completely and intentionally without equipment devices or medications AND is always continent? No. BOWEL MANAGEMENT - STEP 2: Does the patient require the assistance of a helper? No, patient requires and manages independently a n assistive device such as a bedpan, bedside commode, absorbent pad, incontinent device, or collectin g device BOWEL MANAGEMENT - SCORE: 6-DANIEL TRANSFERS: BED, CHAIR, WHEELCHAIR: Patient requires more than one helper and/or the use of a mechanical lift is utilized TRANSFERS: BED, CHAIR, WHEELCHAIR - SCORE: 1-DEP TRANSFERS: TOILET: Patient requires more than one helper and/or the use of a mechanical lift is utilized TRANSFERS: TOILET - SCORE: 1-DEP TRANSFERS: SHOWER: Activity did not occur on this shift TRANSFERS: SHOWER - SCORE: 0-UNK TRANSFERS: TUB: Activity did not occur on this shift TRANSFERS: TUB - SCORE: 0-UNK LOCOMOTION: WALK: Activity did not occur on this shift LOCOMOTION: WALK - SCORE: 0-UNK LOCOMOTION: WHEELCHAIR: Activity did not occur on this shift LOCOMOTION: WHEELCHAIR - SCORE: 0-UNK COMPREHENSION: COMPREHENSION - SCORE: 0-UNK EXPRESSION EXPRESSION - SCORE: 0-UNK SOCIAL INTERACTION: SOCIAL INTERACTION - SCORE: 0-UNK PROBLEM SOLVING: PROBLEM SOLVING - SCORE: 0-UNK MEMORY: MEMORY - SCORE: 0-UNK SIGNATURE PANEL: The following modified sections: Eating - Score, Grooming - Score, Bathing - Score, Dressing - Upper Body - Score, Dressing - Lower Body - Score, Toileting - Score, Bladder Management - Score, Bowel Man agement - Score, Transfers: Bed, Chair, Wheelchair - Score, Transfers: Toilet - Score, Transfers: Charlene wer - Score, Transfers: Tub - Score, Locomotion: Walk - Score, Locomotion: Wheelchair - Score, Compre hension - Score, Expression - Score, Social Interaction - Score, Problem Solving - Score, Memory - Sc ore were [electronically] signed by Riccardo Brunner on TueNov 03 2017 15:24:19 GMT-0500 (Central Daylight Time)
[2017-11-03] MEDS: TRAZODONE 150 MG TAB PO SCH (20:30)
[2017-11-03] MEDS: MIRTAZAPINE 15 MG TAB PO SCH (20:30)
[2017-11-03] MEDS: DOXAZOSIN 2 MG TAB PO SCH (20:31)
[2017-11-03] MEDS: SOD FERRIC GLUC COMPLX/SUCROSE 125 MG in NA CHLORIDE 0.9% 100 ML IV SCH (20:32)
[2017-11-04] MEDS: TRAMADOL HCL 50 MG TAB PO PRN ×3 (01:42→18:40)
--- NOTE | 2017-11-04 03:58 | FAST ---
SHIFT START DATE/TIME: 11/03/2017 19:00 (CDT) SHIFT END DATE/TIME: 11/04/2017 07:00 (CDT) NAME CHARIS MCKEON DATE OF : 1955 DATE OF ADMISSION: 10/25/2017 14:59 (CDT) PHONE: AGE: 62 N# [id number] GENDER: Female ENCOUNTER PHYSICIAN: Dr. Marino Villar M.D. ADMISSION DIAGNOSIS: - Orthopaedic Disorders 08 - Other Orthopaedic (08.9) Bilateral Tibial Plateau Fracture. EATING: Activity did not occur on this shift EATING - SCORE: 0-UNK GROOMING: Oral care GROOMING - STEP 1: Does the patient require assistance when grooming? Yes. GROOMING - STEP 2: Does the patient require the assistance of a helper? Yes. GROOMING - STEP 3: How much assistance does the patient require from the helper? Only prior equipment preparation/set up from the helper GROOMING - SCORE: 5-SUP BATHING: Activity did not occur on this shift BATHING - SCORE: 0-UNK DRESSING - UPPER BODY: Activity did not occur on this shift ARTICLES SCORE Total number of steps: 0 DRESSING - UPPER BODY - SCORE: 0-UNK DRESSING - LOWER BODY: Activity did not occur on this shift ARTICLES SCORE Total number of steps: 0 DRESSING - LOWER BODY - SCORE: 0-UNK TOILETING: TOILETING - STEP 1: Does the patient require assistance with toileting? Yes. TOILETING - STEP 2: Does the patient require the assistance of a helper? Yes. TOILETING - STEP 3: How much assistance does the patient require from the helper? Hands-on assistance from the helper TOILETING - STEP 4: Of the 3 tasks: 1) Adjusting clothing prior to use, 2) Cleansing of perineal area, 3) Adjusting clot toby after use; How many tasks does the patient perform WITHOUT assistance of the helper? No tasks; h oliver performs all three tasks TOILETING - SCORE: 1-DEP BLADDER MANAGEMENT: Patient depends entirely on [place] when using bedpan [helper rolls patient onto side / side-lying pos ition; positions bedpan; assists patient to roll onto bedpan; holds bedpan in place; assists patient off bedpan]. BLADDER MANAGEMENT - SCORE: 1-DEP BLADDER MANAGEMENT - FREQUENCY OF ACCIDENTS: BLADDER MANAGEMENT(FA) - STEP 1: How many accidents has the patient had during the current shift? 1 BOWEL MANAGEMENT: Activity did not occur on this shift BOWEL MANAGEMENT - SCORE: 7-IND TRANSFERS: BED, CHAIR, WHEELCHAIR: Activity did not occur on this shift TRANSFERS: BED, CHAIR, WHEELCHAIR - SCORE: 0-UNK TRANSFERS: TOILET: Activity did not occur on this shift TRANSFERS: TOILET - SCORE: 0-UNK TRANSFERS: SHOWER: Activity did not occur on this shift TRANSFERS: SHOWER - SCORE: 0-UNK TRANSFERS: TUB: Activity did not occur on this shift TRANSFERS: TUB - SCORE: 0-UNK LOCOMOTION: WALK: Activity did not occur on this shift LOCOMOTION: WALK - SCORE: 0-UNK LOCOMOTION: WHEELCHAIR: Activity did not occur on this shift LOCOMOTION: WHEELCHAIR - SCORE: 0-UNK COMPREHENSION: COMPREHENSION - STEP 1: Does the patient require help to understand complex and abstract ideas (such as current events, finan pari, discharge planning, medical issues, relationships, etc)? No. COMPREHENSION - STEP 2: Does the patient need extra time, require an assistive device (such as glasses, hearing aids, or an a ugmentative communication system), OR does s/he have mild difficulty expressing complex and abstract ideas (including mild dysarthria or mild word-finding problems)? Yes. COMPREHENSION - SCORE: 6-DANIEL EXPRESSION EXPRESSION - STEP 1: Does the patient require help expressing complex and abstract ideas (such as current events, finances , discharge planning, medical issues, relationships, etc)? No. EXPRESSION - STEP 2: Does the patient need extra time, require an assistive device (such as augmentive communication syste m or a communication board), OR does s/he have mild difficulty expressing complex and abstract ideas (including mild dysarthria or mild word-find problems)? Yes. EXPRESSION - SCORE: 6-DANIEL SOCIAL INTERACTION: SOCIAL INTERACTION - STEP 1: Does the patient require a helper to interact with others in social and therapeutic situations? No. SOCIAL INTERACTION - STEP 2: Does the patient need extra time in social situations, OR does s/he interact with staff, other patien ts, and family members ONLY in structured environments, OR does s/he require medication for social in teraction? Yes, patient needs extra time SOCIAL INTERACTION - SCORE: 6-DANIEL PROBLEM SOLVING: PROBLEM SOLVING - STEP 1: Does the patient need help to solve complex problems such as managing a checking account or confronti ng interpersonal problems? No. PROBLEM SOLVING - STEP 2: Does the patient require extra time to make decisions or solve problems, OR does s/he have slight dif ficulty reading, initiating, or self-correcting in unfamiliar situations? Yes, patient needs extra ti me. PROBLEM SOLVING - SCORE: 6-DANIEL MEMORY: MEMORY - STEP 1: Does the patient need help to remember frequently encountered people, daily routines, and executing r equests? No. MEMORY - STEP 2: Does the patient have slight difficulty recognizing frequently encountered people, daily routines, or executing requests without the need for repetition or using self-initiated or environmental cues to remember? Yes. MEMORY - SCORE: 6-DANIEL SIGNATURE PANEL: The following modified sections: Eating - Score, Grooming - Score, Bathing - Score, Dressing - Upper Body - Score, Dressing - Lower Body - Score, Toileting - Score, Bladder Management - Score, Bowel Man agement - Score, Transfers: Bed, Chair, Wheelchair - Score, Transfers: Toilet - Score, Transfers: Charlene wer - Score, Transfers: Tub - Score, Locomotion: Walk - Score, Locomotion: Wheelchair - Score, Compre hension - Score, Expression - Score, Social Interaction - Score, Problem Solving - Score, Memory - Sc ore were [electronically] signed by Bri Walton RN on TueNov 04 2017 02:59:02 T-0500 ([facility] Time)
[2017-11-04] MEDS: CARVEDILOL 25 MG TAB PO SCH ×2 (05:28→17:12)
[2017-11-04] MEDS: PROMOD 30 ML DOSE PO SCH ×2 (07:47→20:25)
[2017-11-04] MEDS: NEPRO SHAKE 237 ML CAN PO SCH ×2 (08:00→20:00)
[2017-11-04] MEDS: ENOXAPARIN 30 MG/0.3 ML SQ SCH (08:53)
[2017-11-04] MEDS: ISOSORBIDE MONO SR 30 MG TAB PO SCH ×2 (08:54→20:24)
[2017-11-04] MEDS: FE SULF/FA/VIT B COMP & C TAB PO SCH (08:54)
[2017-11-04] MEDS: ASPIRIN 81 MG CHEWABLE TABLET PO SCH (08:54)
[2017-11-04] MEDS: CALCITROL 0.25 MCG CAP PO SCH (08:54)
[2017-11-04] MEDS: GABAPENTIN 300 MG CAP PO SCH ×2 (08:54→20:23)
[2017-11-04] MEDS: HYDRALAZINE HCL 25 MG TABLET PO SCH ×3 (08:54→20:32)
[2017-11-04] MEDS: DOCUSATE NA 100 MG CAP PO SCH ×2 (08:54→20:23)
[2017-11-04] MEDS: LACTOBACILLUS/ACIDOPHILUS TAB PO SCH (08:54)
[2017-11-04] MEDS: FERROUS SULFATE 325 MG TAB PO SCH (08:54)
[2017-11-04] MEDS: PANTOPRAZOLE 40MG TABLET PO SCH (08:54)
[2017-11-04] MEDS: CETIRIZINE HCL 5 MG TABLET PO SCH (08:54)
[2017-11-04] MEDS: AMLODIPINE 5 MG TAB PO SCH (08:54)
[2017-11-04] MEDS: VITAMIN D 5,000 UNIT CAP PO SCH (08:54)
[2017-11-04] MEDS: LIDOCAINE 5% PATCH TOP SCH (08:55)
[2017-11-04] MEDS: CRANBERRY FRUIT EXTRACT 200 MG CAP PO SCH ×2 (08:55→20:22)
[2017-11-04] MEDS: MAGNESIUM OXIDE 400 MG TAB PO SCH (08:55)
--- NOTE | 2017-11-04 09:46 | P.RH.PN ---
Estimated Length of Stay: 15 Expected Discharge Date: 11/08/17 Discharge Disposition Plan: Retirement Facility Family Support: Yes [employer] Goal: Mobility, Transfers, Self Care Vital Signs: Last Vital Signs Temp 98 F 11/04/17 07:38 Pulse 75 11/04/17 07:38 Resp 16 11/04/17 07:38 BP 145/64 H 11/04/17 07:38 Pulse Ox 100 11/04/17 07:38 Laboratory: Laboratory Last Values WBC 6.1 K/uL (4.3-10.9) 11/03/17 05:40 RBC 3.09 M/uL (3.86-4.86) L 11/03/17 05:40 Hgb 9.0 g/dL (12.0-15.0) L 11/03/17 05:40 Hct 28.0 % (36.0-45.0) L 11/03/17 05:40 MCV 90.4 fL (80-100) 11/03/17 05:40 MCH 29.1 pg (27.0-35.0) 11/03/17 05:40 MCHC 32.2 g/dL (32.0-36.0) 11/03/17 05:40 RDW 16.5 % (12.1-15.2) H 11/03/17 05:40 Plt Count 328 K/uL (152-406) 11/03/17 05:40 MPV 7.2 fL (7.6-11.3) L 11/03/17 05:40 Neutrophils % 71.9 % (41.7-73.7) 11/03/17 05:40 Lymphocytes % 11.9 % (15.3-44.8) L 11/03/17 05:40 Monocytes % 8.9 % (3.3-12.3) 11/03/17 05:40 Eosinophils % 5.9 % (0-4.4) H 11/03/17 05:40 Basophils % 1.4 % (0-1.3) H 11/03/17 05:40 Absolute Neutrophils 4.4 K/uL (1.8-8.0) 11/03/17 05:40 Absolute Lymphocytes 0.7 K/uL (0.7-4.9) 11/03/17 05:40 Absolute Monocytes 0.5 K/uL (0.1-1.3) 11/03/17 05:40 Absolute Eosinophils 0.4 K/uL (0-0.5) 11/03/17 05:40 Absolute Basophils 0.1 K/uL (0-0.5) 11/03/17 05:40 Sodium 137 mmol/L (136-145) 11/03/17 05:40 Potassium 5.0 mmol/L (3.5-5.1) 11/03/17 05:40 Chloride 103 mmol/L (98-107) 11/03/17 05:40 Carbon Dioxide 35 mmol/L (21-32) H 11/03/17 05:40 BUN 69 mg/dL (7-18) H 11/03/17 05:40 Creatinine 2.30 mg/dL (0.55-1.3) H 11/03/17 05:40 Estimated GFR 22 mL/min (=/>90) L 11/03/17 05:40 Glucose 84 mg/dL (74-106) 11/03/17 05:40 Uric Acid 9.3 mg/dL (2.6-6.0) H 11/02/17 05:05 Calcium 8.9 mg/dL (8.5-10.1) 11/03/17 05:40 Phosphorus 4.3 mg/dL (2.5-4.9) 11/02/17 05:05 Magnesium 2.1 mg/dL (1.8-2.4) 11/03/17 05:40 Total Bilirubin 0.4 mg/dL (0.2-1.0) 11/02/17 05:05 AST 18 U/L (15-37) 11/02/17 05:05 ALT < 6 U/L (12-78) L 11/02/17 05:05 Alkaline Phosphatase 79 U/L (45-117) 11/02/17 05:05 Serum Total Protein 4.7 g/dL (6.4-8.2) L 11/02/17 05:05 Albumin 2.5 g/dL (3.4-5.0) L 11/03/17 05:40 Globulin 2.4 g/dL (2.3-3.5) 11/02/17 05:05 Albumin/Globulin Ratio 1.0 (1.1-1.8) L 11/02/17 05:05 Prealbumin 17.5 mg/dL (20-40) L 11/03/17 05:40 Urine Color Yellow 10/30/17 05:27 Urine Appearance Cloudy 10/30/17 05:27 Urine pH 6.0 (5.0-7.0) 10/30/17 05:27 Ur Specific [place] 1.010 (1.005-1.030) 10/30/17 05:27 Urine Ketones Negative (NEG) 10/30/17 05:27 Urine Blood Negative (NEG) 10/30/17 05:27 Urine Nitrite Negative (NEG) 10/30/17 05:27 Urine Bilirubin Negative (NEG) 10/30/17 05:27 Urine Urobilinogen 0.2 mg/dL (0.2-1.0) 10/30/17 05:27 Ur Leukocyte Esterase 2+ (NEG) H 10/30/17 05:27 Urine RBC <5 /HPF (NONE SEEN) 10/30/17 05:27 Urine WBC 10-20 /HPF (<5) H 10/30/17 05:27 Ur Squamous Epith Cells <5 /HPF (NONE SEEN) 10/30/17 05:27 Urine Bacteria Loaded /HPF (<20) H 10/30/17 05:27 Urine Mucus 1+ /HPF (NONE SEEN) 10/25/17 20:15 Urine Culture Reflexed Reflexed 10/30/17 05:27 Urine Glucose Negative (NEG) 10/30/17 05:27 Urine Total Protein Negative (NEG) 10/30/17 05:27 ABO/Rh O NEGATIVE 10/26/17 07:47 Antibody Screen Negative 10/26/17 07:47 Crossmatch See Detail 10/27/17 04:00 Weight: 101 lb Wound Present: Yes Closed Surgical Incision Present: Yes Negative Pressure Wound Therapy Present: No Physician Update: He Hgb is stable at 9.0 and prealbumin is much improved prealbumin. She has nonweight bearing status with both legs due to tibila plateau fractures. She will be discharged to skill nursing due to her restrictions. Functional Improvement: Patient will continue to work on improving technique for transfers, strengthening trunk and B UEs/LEs. Patient presents w/ good attitude toward therapy. Functional Improvement Occupational Therapy: PATIENT HAS DEMONSTRATED GOOD SLOW AND STEADY PROGRESS TOWARD LTG SET IN POC. HOWEVER, CONTINUES WITH FAIR ENDURANCE AND OVERALL STRENGTH REQUIRING ASSISTANCE, EXPLAINED IN PROGRESS NOTES, WITH FUNCTIONAL TRF AND BADL TASKS. CONTINUES TO BENEFIT FROM FURTHER OT TO ADDRESS ALL OF THE ABOVE. Summary: Patient's care plan and usp goals have been reviewed and revised as necessary. Please see the Rehabilitation Signature page for all necessary signatures.
--- NOTE | 2017-11-04 15:19 | FAST ---
ENCOUNTER DATE AND TIME: 11/04/2017 08:00 (CDT) NAME CHARIS MCKEON DATE OF : 1955 DATE OF ADMISSION: 10/25/2017 14:59 (CDT) PHONE: AGE: 62 N# [id number] GENDER: Female ENCOUNTER PHYSICIAN: Dr. Marino iVllar M.D. ADMISSION DIAGNOSIS: - Orthopaedic Disorders 08 - Other Orthopaedic (08.9) Bilateral Tibial Plateau Fracture. EATING: Activity did not occur on this shift EATING - SCORE: 0-UNK GROOMING: Comb/brush hair Wash, rinse, and dry face Wash, rinse, and dry hands GROOMING - STEP 1: Does the patient require assistance when grooming? No. GROOMING - SCORE: 7-IND BATHING: Abdomen Buttocks Chest Left arm Left upper leg Perineal area Right arm Right lower leg and foot Right upper leg BATHING - STEP 1: Does the patient require assistance when bathing? Yes. BATHING - STEP 2: Does the patient require the assistance of a helper? Yes. BATHING - STEP 3: How much assistance does the patient require from the helper? Only prior preparation such as putting bathing equipment within reach, turning on water, checking water temperature BATHING - SCORE: 5-SUP DRESSING - UPPER BODY: T-shirt/pullover shirt (four steps) ARTICLES SCORE Total number of steps: 4 DRESSING - UPPER BODY - STEP 1: Does the patient require help when dressing above the waist? Yes. DRESSING - UPPER BODY - STEP 2: Does the patient require the assistance of a helper? Yes. DRESSING - UPPER BODY - STEP 3: Does the helper touch the patient while dressing? No. DRESSING - UPPER BODY - SCORE: 5-SUP DRESSING - LOWER BODY: Underwear (three steps) ARTICLES SCORE Total number of steps: 3 DRESSING - LOWER BODY - STEP 1: Does the patient require help when dressing below the waist? Yes. DRESSING - LOWER BODY - STEP 2: Does the patient require the assistance of a helper? Yes. DRESSING - LOWER BODY - STEP 3: Does the helper touch the patient while dressing? Yes. DRESSING - LOWER BODY - STEP 4: How many of the total steps does the patient complete on his/her own? 2 DRESSING - LOWER BODY - SCORE: 3-MOD TOILETING: Activity did not occur on this shift TOILETING - SCORE: 0-UNK BLADDER MANAGEMENT: Activity did not occur on this shift BLADDER MANAGEMENT - SCORE: 7-IND BOWEL MANAGEMENT: Activity did not occur on this shift BOWEL MANAGEMENT - SCORE: 7-IND TRANSFERS: BED, CHAIR, WHEELCHAIR: Activity did not occur on this shift TRANSFERS: BED, CHAIR, WHEELCHAIR - SCORE: 0-UNK TRANSFERS: TOILET: Activity did not occur on this shift TRANSFERS: TOILET - SCORE: 0-UNK TRANSFERS: SHOWER: TRANSFERS: SHOWER - STEP 1: Does the patient require assistance with shower transfers? Yes. TRANSFERS: SHOWER - STEP 2: Does the patient require the assistance of a helper? Yes. TRANSFERS: SHOWER - STEP 3: How much assistance does the patient require from the helper? More than incidental help TRANSFERS: SHOWER - STEP 4: How much more help does the patient require from the helper? Lifting the patient up AND down from the wheelchair onto the shower chair TRANSFERS: SHOWER - SCORE: 2-MAX TRANSFERS: TUB: Activity did not occur on this shift TRANSFERS: TUB - SCORE: 0-UNK LOCOMOTION: WALK: Activity did not occur on this shift LOCOMOTION: WALK - SCORE: 0-UNK LOCOMOTION: WHEELCHAIR: Activity did not occur on this shift LOCOMOTION: WHEELCHAIR - SCORE: 0-UNK LOCOMOTION: STAIRS: Activity did not occur on this shift LOCOMOTION: STAIRS - SCORE: 0-UNK COMPREHENSION: COMPREHENSION - STEP 1: Does the patient require help to understand complex and abstract ideas (such as current events, finan pari, discharge planning, medical issues, relationships, etc)? No. COMPREHENSION - STEP 2: Does the patient need extra time, require an assistive device (such as glasses, hearing aids, or an a ugmentative communication system), OR does s/he have mild difficulty expressing complex and abstract ideas (including mild dysarthria or mild word-finding problems)? No. COMPREHENSION - SCORE: 7-IND EXPRESSION EXPRESSION: TYPE: Non-Vocal EXPRESSION - STEP 1: Does the patient require help expressing complex and abstract ideas (such as current events, finances , discharge planning, medical issues, relationships, etc)? No. EXPRESSION - STEP 2: Does the patient need extra time, require an assistive device (such as augmentive communication syste m or a communication board), OR does s/he have mild difficulty expressing complex and abstract ideas (including mild dysarthria or mild word-find problems)? No. EXPRESSION - SCORE: 7-IND SOCIAL INTERACTION: SOCIAL INTERACTION - STEP 1: Does the patient require a helper to interact with others in social and therapeutic situations? No. SOCIAL INTERACTION - STEP 2: Does the patient need extra time in social situations, OR does s/he interact with staff, other patien ts, and family members ONLY in structured environments, OR does s/he require medication for social in teraction? No. SOCIAL INTERACTION - SCORE: 7-IND PROBLEM SOLVING: PROBLEM SOLVING - STEP 1: Does the patient need help to solve complex problems such as managing a checking account or confronti ng interpersonal problems? No. PROBLEM SOLVING - STEP 2: Does the patient require extra time to make decisions or solve problems, OR does s/he have slight dif ficulty reading, initiating, or self-correcting in unfamiliar situations? No. PROBLEM SOLVING - SCORE: 7-IND MEMORY: MEMORY - STEP 1: Does the patient need help to remember frequently encountered people, daily routines, and executing r equests? No. MEMORY - STEP 2: Does the patient have slight difficulty recognizing frequently encountered people, daily routines, or executing requests without the need for repetition or using self-initiated or environmental cues to remember? Yes. MEMORY - SCORE: 6-DANIEL SIGNATURE PANEL: The following modified sections: Eating - Score, Grooming - Score, Bathing - Score, Dressing - Upper Body - Score, Dressing - Lower Body - Score, Toileting - Score, Transfers: Bed, Chair, Wheelchair - S core, Transfers: Toilet - Score, Transfers: Shower - Score, Transfers: Tub - Score, Comprehension - S core, Expression - Score, Social Interaction - Score, Problem Solving - Score, Memory - Score were [e lectronically] signed by KAYE Marc on TueNov 04 2017 14:19:42 T-0500 ([facility] Time)
--- NOTE | 2017-11-04 15:34 | FAST ---
ENCOUNTER DATE AND TIME: 11/03/2017 08:00 (CDT) NAME CHARIS MCKEON DATE OF : 1955 DATE OF ADMISSION: 10/25/2017 14:59 (CDT) PHONE: AGE: 62 N# [id number] GENDER: Female ENCOUNTER PHYSICIAN: Dr. Marino Villar M.D. ADMISSION DIAGNOSIS: - Orthopaedic Disorders 08 - Other Orthopaedic (08.9) Bilateral Tibial Plateau Fracture. EATING: Activity did not occur on this shift EATING - SCORE: 0-UNK GROOMING: Activity did not occur on this shift GROOMING - SCORE: 0-UNK BATHING: Activity did not occur on this shift BATHING - SCORE: 0-UNK DRESSING - UPPER BODY: Activity did not occur on this shift Patient is not dressing in public clothing ARTICLES SCORE Total number of steps: 0 DRESSING - UPPER BODY - SCORE: 0-UNK DRESSING - LOWER BODY: Activity did not occur on this shift Patient is not dressing in public clothing ARTICLES SCORE Total number of steps: 0 DRESSING - LOWER BODY - SCORE: 0-UNK TOILETING: Activity did not occur on this shift TOILETING - SCORE: 0-UNK BLADDER MANAGEMENT: Activity did not occur on this shift BLADDER MANAGEMENT - SCORE: 7-IND BOWEL MANAGEMENT: Activity did not occur on this shift BOWEL MANAGEMENT - SCORE: 7-IND TRANSFERS: BED, CHAIR, WHEELCHAIR: TRANSFERS: BED, CHAIR, WHEELCHAIR - STEP 1: Does the patient require assistance with bed, chair, or wheelchair transfers? Yes. TRANSFERS: BED, CHAIR, WHEELCHAIR - STEP 2: Does the patient require the assistance of a helper? Yes. TRANSFERS: BED, CHAIR, WHEELCHAIR - STEP 3: How much assistance does the patient require from the helper? Only supervision TRANSFERS: BED, CHAIR, WHEELCHAIR - SCORE: 5-SUP TRANSFERS: TOILET: Activity did not occur on this shift TRANSFERS: TOILET - SCORE: 0-UNK TRANSFERS: SHOWER: Activity did not occur on this shift TRANSFERS: SHOWER - SCORE: 0-UNK TRANSFERS: TUB: Activity did not occur on this shift TRANSFERS: TUB - SCORE: 0-UNK LOCOMOTION: WALK: Activity did not occur on this shift LOCOMOTION: WALK - SCORE: 0-UNK LOCOMOTION: WHEELCHAIR: Activity did not occur on this shift LOCOMOTION: WHEELCHAIR - SCORE: 0-UNK LOCOMOTION: STAIRS: Activity did not occur on this shift LOCOMOTION: STAIRS - SCORE: 0-UNK COMPREHENSION: COMPREHENSION - SCORE: 0-UNK EXPRESSION EXPRESSION - SCORE: 0-UNK SOCIAL INTERACTION: SOCIAL INTERACTION - SCORE: 0-UNK PROBLEM SOLVING: PROBLEM SOLVING - SCORE: 0-UNK MEMORY: MEMORY - SCORE: 0-UNK SIGNATURE PANEL: The following modified sections: Transfers: Bed, Chair, Wheelchair - Score, Transfers: Toilet - Score , Locomotion: Walk - Score, Locomotion: Wheelchair - Score, Locomotion: Stairs - Score were [electron icabonny] signed by Aries Muhammad PTA on TueNov 04 2017 14:34:41 GMT-0500 (Central Daylight Time)
--- NOTE | 2017-11-04 15:48 | FAST ---
ENCOUNTER DATE AND TIME: 11/04/2017 08:00 (CDT) NAME CHARIS MCKEON DATE OF : 1955 DATE OF ADMISSION: 10/25/2017 14:59 (CDT) PHONE: AGE: 62 N# [id number] GENDER: Female ENCOUNTER PHYSICIAN: Dr. Marino Villar M.D. ADMISSION DIAGNOSIS: - Orthopaedic Disorders 08 - Other Orthopaedic (08.9) Bilateral Tibial Plateau Fracture. EATING: Activity did not occur on this shift EATING - SCORE: 0-UNK GROOMING: Activity did not occur on this shift GROOMING - SCORE: 0-UNK BATHING: Activity did not occur on this shift BATHING - SCORE: 0-UNK DRESSING - UPPER BODY: Activity did not occur on this shift Patient is not dressing in public clothing ARTICLES SCORE Total number of steps: 0 DRESSING - UPPER BODY - SCORE: 0-UNK DRESSING - LOWER BODY: Activity did not occur on this shift Patient is not dressing in public clothing ARTICLES SCORE Total number of steps: 0 DRESSING - LOWER BODY - SCORE: 0-UNK TOILETING: Activity did not occur on this shift TOILETING - SCORE: 0-UNK BLADDER MANAGEMENT: Activity did not occur on this shift BLADDER MANAGEMENT - SCORE: 7-IND BOWEL MANAGEMENT: Activity did not occur on this shift BOWEL MANAGEMENT - SCORE: 7-IND TRANSFERS: BED, CHAIR, WHEELCHAIR: TRANSFERS: BED, CHAIR, WHEELCHAIR - STEP 1: Does the patient require assistance with bed, chair, or wheelchair transfers? Yes. TRANSFERS: BED, CHAIR, WHEELCHAIR - STEP 2: Does the patient require the assistance of a helper? Yes. TRANSFERS: BED, CHAIR, WHEELCHAIR - STEP 3: How much assistance does the patient require from the helper? Only supervision TRANSFERS: BED, CHAIR, WHEELCHAIR - SCORE: 5-SUP TRANSFERS: TOILET: Activity did not occur on this shift TRANSFERS: TOILET - SCORE: 0-UNK TRANSFERS: SHOWER: Activity did not occur on this shift TRANSFERS: SHOWER - SCORE: 0-UNK TRANSFERS: TUB: Activity did not occur on this shift TRANSFERS: TUB - SCORE: 0-UNK LOCOMOTION: WALK: Activity did not occur on this shift LOCOMOTION: WALK - SCORE: 0-UNK LOCOMOTION: WHEELCHAIR: Activity did not occur on this shift LOCOMOTION: WHEELCHAIR - SCORE: 0-UNK LOCOMOTION: STAIRS: Activity did not occur on this shift LOCOMOTION: STAIRS - SCORE: 0-UNK COMPREHENSION: COMPREHENSION - SCORE: 0-UNK EXPRESSION EXPRESSION - SCORE: 0-UNK SOCIAL INTERACTION: SOCIAL INTERACTION - SCORE: 0-UNK PROBLEM SOLVING: PROBLEM SOLVING - SCORE: 0-UNK MEMORY: MEMORY - SCORE: 0-UNK SIGNATURE PANEL: The following modified sections: Transfers: Bed, Chair, Wheelchair - Score, Transfers: Toilet - Score , Locomotion: Walk - Score, Locomotion: Wheelchair - Score, Locomotion: Stairs - Score were [electron icabonny] signed by Aries Muhammad PTA on TueNov 04 2017 14:48:44 GMT-0500 (Central Daylight Time)
--- NOTE | 2017-11-04 16:18 | FAST ---
SHIFT START DATE/TIME: 11/04/2017 07:00 (CDT) SHIFT END DATE/TIME: 11/04/2017 19:00 (CDT) NAME CHARIS MCKEON DATE OF : 1955 DATE OF ADMISSION: 10/25/2017 14:59 (CDT) PHONE: AGE: 62 N# [id number] GENDER: Female ENCOUNTER PHYSICIAN: Dr. Marino Villar M.D. ADMISSION DIAGNOSIS: - Orthopaedic Disorders 08 - Other Orthopaedic (08.9) Bilateral Tibial Plateau Fracture. EATING: EATING - STEP 1: Does the patient require assistance when eating? Yes. EATING - STEP 2: Does the patient require the assistance of a helper? Yes. EATING - STEP 3: Does the patient perform half or more of the eating tasks? Yes. EATING - STEP 4: Does the patient need only supervision, cuing, coaxing OR help to apply an orthosis OR help to cut fo od, open containers, pour liquids, or butter bread? Yes. EATING - SCORE: 5-SUP GROOMING: Comb/brush hair Oral care Wash, rinse, and dry face Wash, rinse, and dry hands GROOMING - STEP 1: Does the patient require assistance when grooming? Yes. GROOMING - STEP 2: Does the patient require the assistance of a helper? Yes. GROOMING - STEP 3: How much assistance does the patient require from the helper? Only prior equipment preparation/set up from the helper GROOMING - SCORE: 5-SUP BATHING: Activity did not occur on this shift BATHING - SCORE: 0-UNK DRESSING - UPPER BODY: Activity did not occur on this shift ARTICLES SCORE Total number of steps: 0 DRESSING - UPPER BODY - SCORE: 0-UNK DRESSING - LOWER BODY: Activity did not occur on this shift ARTICLES SCORE Total number of steps: 0 DRESSING - LOWER BODY - SCORE: 0-UNK TOILETING: TOILETING - STEP 1: Does the patient require assistance with toileting? Yes. TOILETING - STEP 2: Does the patient require the assistance of a helper? Yes. TOILETING - STEP 3: How much assistance does the patient require from the helper? Hands-on assistance from the helper TOILETING - STEP 4: Of the 3 tasks: 1) Adjusting clothing prior to use, 2) Cleansing of perineal area, 3) Adjusting clot toby after use; How many tasks does the patient perform WITHOUT assistance of the helper? One task TOILETING - SCORE: 2-MAX BLADDER MANAGEMENT: Winder removes incontinent device (Depends, pull ups, etc.); cleans the patient after accident / inco ntinent episode; and, applies new incontinent device. BLADDER MANAGEMENT - SCORE: 1-DEP BLADDER MANAGEMENT - FREQUENCY OF ACCIDENTS: BLADDER MANAGEMENT(FA) - STEP 1: How many accidents has the patient had during the current shift? 1 BOWEL MANAGEMENT: Activity did not occur on this shift BOWEL MANAGEMENT - SCORE: 7-IND BOWEL MANAGEMENT - FREQUENCY OF ACCIDENTS: BOWEL MANAGEMENT(FA) - STEP 1: How many accidents has the patient had during the current shift? 0 TRANSFERS: BED, CHAIR, WHEELCHAIR: TRANSFERS: BED, CHAIR, WHEELCHAIR - STEP 1: Does the patient require assistance with bed, chair, or wheelchair transfers? Yes. TRANSFERS: BED, CHAIR, WHEELCHAIR - STEP 2: Does the patient require the assistance of a helper? Yes. TRANSFERS: BED, CHAIR, WHEELCHAIR - STEP 3: How much assistance does the patient require from the helper? Lifting of the patient TRANSFERS: BED, CHAIR, WHEELCHAIR - STEP 4: Does the helper lift the patient ONLY up? ONLY down? Up AND Down? Patient needs help with all lifting TRANSFERS: BED, CHAIR, WHEELCHAIR - SCORE: 1-DEP TRANSFERS: TOILET: TRANSFERS: TOILET - STEP 1: Does the patient require assistance with toilet transfers? Yes. TRANSFERS: TOILET - STEP 2: Does the patient require the assistance of a helper? Yes. TRANSFERS: TOILET - STEP 3: How much assistance does the patient require from the helper? Patient performs less than half of the transferring tasks TRANSFERS: TOILET - STEP 4: Does the patient require total assistance for the toilet transfer such as the helper doing basically all the lifting? Yes. TRANSFERS: TOILET - SCORE: 1-DEP TRANSFERS: TOILET - COMMENTS: Pt uses her arms and lifts her body and transfers to side of bed- helper places bedside commode besid e bed-helper lifts pt up and onto beside commode TRANSFERS: SHOWER: Activity did not occur on this shift TRANSFERS: SHOWER - SCORE: 0-UNK TRANSFERS: TUB: Activity did not occur on this shift TRANSFERS: TUB - SCORE: 0-UNK LOCOMOTION: WALK: Activity did not occur on this shift LOCOMOTION: WALK - SCORE: 0-UNK LOCOMOTION: WHEELCHAIR: Activity did not occur on this shift LOCOMOTION: WHEELCHAIR - SCORE: 0-UNK COMPREHENSION: COMPREHENSION: TYPE: Both COMPREHENSION - STEP 1: Does the patient require help to understand complex and abstract ideas (such as current events, finan pari, discharge planning, medical issues, relationships, etc)? No. COMPREHENSION - STEP 2: Does the patient need extra time, require an assistive device (such as glasses, hearing aids, or an a ugmentative communication system), OR does s/he have mild difficulty expressing complex and abstract ideas (including mild dysarthria or mild word-finding problems)? Yes. COMPREHENSION - SCORE: 6-DANIEL EXPRESSION EXPRESSION: TYPE: Both EXPRESSION - STEP 1: Does the patient require help expressing complex and abstract ideas (such as current events, finances , discharge planning, medical issues, relationships, etc)? No. EXPRESSION - STEP 2: Does the patient need extra time, require an assistive device (such as augmentive communication syste m or a communication board), OR does s/he have mild difficulty expressing complex and abstract ideas (including mild dysarthria or mild word-find problems)? Yes. EXPRESSION - SCORE: 6-DANIEL SOCIAL INTERACTION: SOCIAL INTERACTION - STEP 1: Does the patient require a helper to interact with others in social and therapeutic situations? No. SOCIAL INTERACTION - STEP 2: Does the patient need extra time in social situations, OR does s/he interact with staff, other patien ts, and family members ONLY in structured environments, OR does s/he require medication for social in teraction? Yes, patient needs extra time SOCIAL INTERACTION - SCORE: 6-DANIEL PROBLEM SOLVING: PROBLEM SOLVING - STEP 1: Does the patient need help to solve complex problems such as managing a checking account or confronti ng interpersonal problems? Yes. PROBLEM SOLVING - STEP 2: Does the patient solve basic routine problems half or more of the time? Yes. PROBLEM SOLVING - STEP 3: How often does the patient need help to solve basic routine problems? Less than 10% of the time PROBLEM SOLVING - SCORE: 5-SUP MEMORY: MEMORY - STEP 1: Does the patient need help to remember frequently encountered people, daily routines, and executing r equests? No. MEMORY - STEP 2: Does the patient have slight difficulty recognizing frequently encountered people, daily routines, or executing requests without the need for repetition or using self-initiated or environmental cues to remember? Yes. MEMORY - SCORE: 6-DANIEL SIGNATURE PANEL: The following modified sections: Eating - Score, Grooming - Score, Bathing - Score, Dressing - Upper Body - Score, Dressing - Lower Body - Score, Toileting - Score, Bladder Management - Score, Bowel Man agement - Score, Bowel Management - Comments:, Transfers: Bed, Chair, Wheelchair - Score, Transfers: Toilet - Score, Transfers: Toilet - Comments:, Transfers: Shower - Score, Transfers: Tub - Score, Loc omotion: Walk - Score, Locomotion: Wheelchair - Score, Comprehension - Score, Expression - Score, Soc ial Interaction - Score, Problem Solving - Score, Memory - Score were [electronically] signed by Jc [email or web address] on TueNov 04 2017 15:18:37 GMT-0500 (Central Daylight Time)
[2017-11-04] MEDS: SOD FERRIC GLUC COMPLX/SUCROSE 125 MG in NA CHLORIDE 0.9% 100 ML IV SCH (18:40)
[2017-11-04] MEDS: TRAZODONE 150 MG TAB PO SCH (20:23)
[2017-11-04] MEDS: MIRTAZAPINE 15 MG TAB PO SCH (20:23)
[2017-11-04] MEDS: DOXAZOSIN 2 MG TAB PO SCH (20:24)
--- NOTE | 2017-11-05 03:43 | FAST ---
SHIFT START DATE/TIME: 11/04/2017 19:00 (CDT) SHIFT END DATE/TIME: 11/05/2017 07:00 (CDT) NAME CHARIS MCKEON DATE OF : 1955 DATE OF ADMISSION: 10/25/2017 14:59 (CDT) PHONE: AGE: 62 N# [id number] GENDER: Female ENCOUNTER PHYSICIAN: Dr. Marino Villar M.D. ADMISSION DIAGNOSIS: - Orthopaedic Disorders 08 - Other Orthopaedic (08.9) Bilateral Tibial Plateau Fracture. EATING: Activity did not occur on this shift EATING - SCORE: 0-UNK GROOMING: Activity did not occur on this shift GROOMING - SCORE: 0-UNK BATHING: Activity did not occur on this shift BATHING - SCORE: 0-UNK DRESSING - UPPER BODY: Patient is not dressing in public clothing ARTICLES SCORE Total number of steps: 0 DRESSING - UPPER BODY - SCORE: 0-UNK DRESSING - LOWER BODY: Patient is not dressing in public clothing ARTICLES SCORE Total number of steps: 0 DRESSING - LOWER BODY - SCORE: 0-UNK TOILETING: TOILETING - STEP 1: Does the patient require assistance with toileting? Yes. TOILETING - STEP 2: Does the patient require the assistance of a helper? Yes. TOILETING - STEP 3: How much assistance does the patient require from the helper? Hands-on assistance from the helper TOILETING - STEP 4: Of the 3 tasks: 1) Adjusting clothing prior to use, 2) Cleansing of perineal area, 3) Adjusting clot toby after use; How many tasks does the patient perform WITHOUT assistance of the helper? No tasks; h elper performs all three tasks TOILETING - SCORE: 1-DEP BLADDER MANAGEMENT: Patient depends entirely on [place] when using bedpan [helper rolls patient onto side / side-lying pos ition; positions bedpan; assists patient to roll onto bedpan; holds bedpan in place; assists patient off bedpan]. BLADDER MANAGEMENT - SCORE: 1-DEP BOWEL MANAGEMENT: Patient depends entirely on [place] when using bedpan [helper rolls patient onto side / side-lying pos ition; positions bedpan; assists patient to roll onto bedpan; holds bedpan in place; assists patient off bedpan]. BOWEL MANAGEMENT - SCORE: 1-DEP TRANSFERS: BED, CHAIR, WHEELCHAIR: Activity did not occur on this shift TRANSFERS: BED, CHAIR, WHEELCHAIR - SCORE: 0-UNK TRANSFERS: TOILET: Activity did not occur on this shift TRANSFERS: TOILET - SCORE: 0-UNK TRANSFERS: SHOWER: Activity did not occur on this shift TRANSFERS: SHOWER - SCORE: 0-UNK TRANSFERS: TUB: Activity did not occur on this shift TRANSFERS: TUB - SCORE: 0-UNK LOCOMOTION: WALK: Activity did not occur on this shift LOCOMOTION: WALK - SCORE: 0-UNK LOCOMOTION: WHEELCHAIR: Activity did not occur on this shift LOCOMOTION: WHEELCHAIR - SCORE: 0-UNK COMPREHENSION: COMPREHENSION: TYPE: Both COMPREHENSION - STEP 1: Does the patient require help to understand complex and abstract ideas (such as current events, finan pari, discharge planning, medical issues, relationships, etc)? No. COMPREHENSION - STEP 2: Does the patient need extra time, require an assistive device (such as glasses, hearing aids, or an a ugmentative communication system), OR does s/he have mild difficulty expressing complex and abstract ideas (including mild dysarthria or mild word-finding problems)? Yes. COMPREHENSION - SCORE: 6-DANIEL EXPRESSION EXPRESSION: TYPE: Both EXPRESSION - STEP 1: Does the patient require help expressing complex and abstract ideas (such as current events, finances , discharge planning, medical issues, relationships, etc)? No. EXPRESSION - STEP 2: Does the patient need extra time, require an assistive device (such as augmentive communication syste m or a communication board), OR does s/he have mild difficulty expressing complex and abstract ideas (including mild dysarthria or mild word-find problems)? Yes. EXPRESSION - SCORE: 6-DANIEL SOCIAL INTERACTION: SOCIAL INTERACTION - STEP 1: Does the patient require a helper to interact with others in social and therapeutic situations? No. SOCIAL INTERACTION - STEP 2: Does the patient need extra time in social situations, OR does s/he interact with staff, other patien ts, and family members ONLY in structured environments, OR does s/he require medication for social in teraction? Yes, patient requires medication for social interaction SOCIAL INTERACTION - SCORE: 6-DANIEL PROBLEM SOLVING: PROBLEM SOLVING - STEP 1: Does the patient need help to solve complex problems such as managing a checking account or confronti ng interpersonal problems? No. PROBLEM SOLVING - STEP 2: Does the patient require extra time to make decisions or solve problems, OR does s/he have slight dif ficulty reading, initiating, or self-correcting in unfamiliar situations? Yes, patient needs extra ti me. PROBLEM SOLVING - SCORE: 6-DANIEL MEMORY: MEMORY - STEP 1: Does the patient need help to remember frequently encountered people, daily routines, and executing r equests? No. MEMORY - STEP 2: Does the patient have slight difficulty recognizing frequently encountered people, daily routines, or executing requests without the need for repetition or using self-initiated or environmental cues to remember? Yes. MEMORY - SCORE: 6-DANIEL
[2017-11-05] MEDS: CARVEDILOL 25 MG TAB PO SCH ×2 (05:24→17:17)
[2017-11-05] MEDS: PROMOD 30 ML DOSE PO SCH ×2 (08:00→19:41)
[2017-11-05] MEDS: NEPRO SHAKE 237 ML CAN PO SCH ×2 (08:00→19:40)
[2017-11-05] MEDS: PANTOPRAZOLE 40MG TABLET PO SCH (08:42)
[2017-11-05] MEDS: CALCITROL 0.25 MCG CAP PO SCH (09:47)
[2017-11-05] MEDS: FE SULF/FA/VIT B COMP & C TAB PO SCH (09:47)
[2017-11-05] MEDS: LIDOCAINE 5% PATCH TOP SCH (09:52)
[2017-11-05] MEDS: ENOXAPARIN 30 MG/0.3 ML SQ SCH (10:06)
[2017-11-05] MEDS: VITAMIN D 5,000 UNIT CAP PO SCH (10:07)
[2017-11-05] MEDS: TRAMADOL HCL 50 MG TAB PO PRN ×3 (10:07→17:17)
[2017-11-05] MEDS: CETIRIZINE HCL 5 MG TABLET PO SCH (10:08)
[2017-11-05] MEDS: LACTOBACILLUS/ACIDOPHILUS TAB PO SCH (10:08)
[2017-11-05] MEDS: CRANBERRY FRUIT EXTRACT 200 MG CAP PO SCH ×2 (10:09→19:39)
[2017-11-05] MEDS: GABAPENTIN 300 MG CAP PO SCH ×2 (10:09→19:39)
[2017-11-05] MEDS: FERROUS SULFATE 325 MG TAB PO SCH (10:10)
[2017-11-05] MEDS: MAGNESIUM OXIDE 400 MG TAB PO SCH (10:10)
[2017-11-05] MEDS: DOCUSATE NA 100 MG CAP PO SCH ×2 (10:11→19:42)
[2017-11-05] MEDS: ASPIRIN 81 MG CHEWABLE TABLET PO SCH (10:16)
[2017-11-05] MEDS: AMLODIPINE 5 MG TAB PO SCH (10:17)
[2017-11-05] MEDS: HYDRALAZINE HCL 25 MG TABLET PO SCH ×3 (10:18→21:00)
[2017-11-05] MEDS: ISOSORBIDE MONO SR 30 MG TAB PO SCH ×2 (10:18→19:40)
[2017-11-05] MEDS: SOD FERRIC GLUC COMPLX/SUCROSE 125 MG in NA CHLORIDE 0.9% 100 ML IV SCH (18:43)
[2017-11-05] MEDS ORDERED: HYDROCODONE/APAP 5/325 MG TAB PO PRN (19:51)
[2017-11-05] MEDS: TRAZODONE 150 MG TAB PO SCH (20:59)
[2017-11-05] MEDS: MIRTAZAPINE 15 MG TAB PO SCH (21:00)
[2017-11-05] MEDS: DOXAZOSIN 2 MG TAB PO SCH (21:01)
[2017-11-06] MEDS: TRAMADOL HCL 50 MG TAB PO PRN ×3 (01:17→18:32)
--- NOTE | 2017-11-06 03:33 | FAST ---
SHIFT START DATE/TIME: 11/05/2017 19:00 (CDT) SHIFT END DATE/TIME: 11/06/2017 07:00 (CDT) NAME CHARIS MCKEON DATE OF : 1955 DATE OF ADMISSION: 10/25/2017 14:59 (CDT) PHONE: AGE: 62 N# [id number] GENDER: Female ENCOUNTER PHYSICIAN: Dr. Marino Villar M.D. ADMISSION DIAGNOSIS: - Orthopaedic Disorders 08 - Other Orthopaedic (08.9) Bilateral Tibial Plateau Fracture. EATING: Activity did not occur on this shift EATING - SCORE: 0-UNK GROOMING: Activity did not occur on this shift GROOMING - SCORE: 0-UNK BATHING: Activity did not occur on this shift BATHING - SCORE: 0-UNK DRESSING - UPPER BODY: Patient is not dressing in public clothing ARTICLES SCORE Total number of steps: 0 DRESSING - UPPER BODY - SCORE: 0-UNK DRESSING - LOWER BODY: Patient is not dressing in public clothing ARTICLES SCORE Total number of steps: 0 DRESSING - LOWER BODY - SCORE: 0-UNK TOILETING: TOILETING - STEP 1: Does the patient require assistance with toileting? Yes. TOILETING - STEP 2: Does the patient require the assistance of a helper? Yes. TOILETING - STEP 3: How much assistance does the patient require from the helper? Hands-on assistance from the helper TOILETING - STEP 4: Of the 3 tasks: 1) Adjusting clothing prior to use, 2) Cleansing of perineal area, 3) Adjusting clot toby after use; How many tasks does the patient perform WITHOUT assistance of the helper? One task TOILETING - SCORE: 2-MAX BLADDER MANAGEMENT: Patient depends entirely on [place] when using bedpan [helper rolls patient onto side / side-lying pos ition; positions bedpan; assists patient to roll onto bedpan; holds bedpan in place; assists patient off bedpan]. BLADDER MANAGEMENT - SCORE: 1-DEP BOWEL MANAGEMENT: Activity did not occur on this shift BOWEL MANAGEMENT - SCORE: 7-IND TRANSFERS: BED, CHAIR, WHEELCHAIR: Activity did not occur on this shift TRANSFERS: BED, CHAIR, WHEELCHAIR - SCORE: 0-UNK TRANSFERS: TOILET: Activity did not occur on this shift TRANSFERS: TOILET - SCORE: 0-UNK TRANSFERS: SHOWER: Activity did not occur on this shift TRANSFERS: SHOWER - SCORE: 0-UNK TRANSFERS: TUB: Activity did not occur on this shift TRANSFERS: TUB - SCORE: 0-UNK LOCOMOTION: WALK: Activity did not occur on this shift LOCOMOTION: WALK - SCORE: 0-UNK LOCOMOTION: WHEELCHAIR: Activity did not occur on this shift LOCOMOTION: WHEELCHAIR - SCORE: 0-UNK COMPREHENSION: COMPREHENSION: TYPE: Visual COMPREHENSION - STEP 1: Does the patient require help to understand complex and abstract ideas (such as current events, finan pari, discharge planning, medical issues, relationships, etc)? No. COMPREHENSION - STEP 2: Does the patient need extra time, require an assistive device (such as glasses, hearing aids, or an a ugmentative communication system), OR does s/he have mild difficulty expressing complex and abstract ideas (including mild dysarthria or mild word-finding problems)? Yes. COMPREHENSION - SCORE: 6-DANIEL EXPRESSION EXPRESSION: TYPE: Vocal EXPRESSION - STEP 1: Does the patient require help expressing complex and abstract ideas (such as current events, finances , discharge planning, medical issues, relationships, etc)? No. EXPRESSION - STEP 2: Does the patient need extra time, require an assistive device (such as augmentive communication syste m or a communication board), OR does s/he have mild difficulty expressing complex and abstract ideas (including mild dysarthria or mild word-find problems)? Yes. EXPRESSION - SCORE: 6-DANIEL SOCIAL INTERACTION: SOCIAL INTERACTION - STEP 1: Does the patient require a helper to interact with others in social and therapeutic situations? No. SOCIAL INTERACTION - STEP 2: Does the patient need extra time in social situations, OR does s/he interact with staff, other patien ts, and family members ONLY in structured environments, OR does s/he require medication for social in teraction? Yes, patient needs extra time SOCIAL INTERACTION - SCORE: 6-DANIEL PROBLEM SOLVING: PROBLEM SOLVING - STEP 1: Does the patient need help to solve complex problems such as managing a checking account or confronti ng interpersonal problems? No. PROBLEM SOLVING - STEP 2: Does the patient require extra time to make decisions or solve problems, OR does s/he have slight dif ficulty reading, initiating, or self-correcting in unfamiliar situations? Yes, patient needs extra ti me. PROBLEM SOLVING - SCORE: 6-DANIEL MEMORY: MEMORY - STEP 1: Does the patient need help to remember frequently encountered people, daily routines, and executing r equests? No. MEMORY - STEP 2: Does the patient have slight difficulty recognizing frequently encountered people, daily routines, or executing requests without the need for repetition or using self-initiated or environmental cues to remember? Yes. MEMORY - SCORE: 6-DANIEL
[2017-11-06] MEDS: CARVEDILOL 25 MG TAB PO SCH ×2 (05:21→17:33)
[2017-11-06] MEDS: NEPRO SHAKE 237 ML CAN PO SCH ×2 (08:00→19:30)
[2017-11-06] MEDS: LIDOCAINE 5% PATCH TOP SCH (08:34)
[2017-11-06] MEDS: ENOXAPARIN 30 MG/0.3 ML SQ SCH (08:34)
[2017-11-06] MEDS: CALCITROL 0.25 MCG CAP PO SCH (08:35)
[2017-11-06] MEDS: CRANBERRY FRUIT EXTRACT 200 MG CAP PO SCH ×2 (08:35→19:29)
[2017-11-06] MEDS: GABAPENTIN 300 MG CAP PO SCH ×2 (08:36→19:29)
[2017-11-06] MEDS: HYDRALAZINE HCL 25 MG TABLET PO SCH ×3 (08:37→21:07)
[2017-11-06] MEDS: FERROUS SULFATE 325 MG TAB PO SCH (08:37)
[2017-11-06] MEDS: ASPIRIN 81 MG CHEWABLE TABLET PO SCH (08:38)
[2017-11-06] MEDS: VITAMIN D 5,000 UNIT CAP PO SCH (08:38)
[2017-11-06] MEDS: PANTOPRAZOLE 40MG TABLET PO SCH (08:38)
[2017-11-06] MEDS: FE SULF/FA/VIT B COMP & C TAB PO SCH (08:38)
[2017-11-06] MEDS: DOCUSATE NA 100 MG CAP PO SCH ×2 (08:38→19:30)
[2017-11-06] MEDS: MAGNESIUM OXIDE 400 MG TAB PO SCH (08:39)
[2017-11-06] MEDS: ISOSORBIDE MONO SR 30 MG TAB PO SCH ×2 (08:39→19:30)
[2017-11-06] MEDS: LACTOBACILLUS/ACIDOPHILUS TAB PO SCH (08:40)
[2017-11-06] MEDS: CETIRIZINE HCL 5 MG TABLET PO SCH (08:40)
[2017-11-06] MEDS: PROMOD 30 ML DOSE PO SCH ×2 (09:00→19:30)
[2017-11-06] MEDS: AMLODIPINE 5 MG TAB PO SCH (11:59)
--- NOTE | 2017-11-06 17:21 | FAST ---
SHIFT START DATE/TIME: 11/06/2017 07:00 (CDT) SHIFT END DATE/TIME: 11/06/2017 19:00 (CDT) NAME CHARIS MCKEON DATE OF : 1955 DATE OF ADMISSION: 10/25/2017 14:59 (CDT) PHONE: AGE: 62 N# [id number] GENDER: Female ENCOUNTER PHYSICIAN: Dr. Marino Villar M.D. ADMISSION DIAGNOSIS: - Orthopaedic Disorders 08 - Other Orthopaedic (08.9) Bilateral Tibial Plateau Fracture. EATING: EATING - STEP 1: Does the patient require assistance when eating? Yes. EATING - STEP 2: Does the patient require the assistance of a helper? Yes. EATING - STEP 3: Does the patient perform half or more of the eating tasks? Yes. EATING - STEP 4: Does the patient need only supervision, cuing, coaxing OR help to apply an orthosis OR help to cut fo od, open containers, pour liquids, or butter bread? Yes. EATING - SCORE: 5-SUP GROOMING: Comb/brush hair Oral care Wash, rinse, and dry face Wash, rinse, and dry hands GROOMING - STEP 1: Does the patient require assistance when grooming? Yes. GROOMING - STEP 2: Does the patient require the assistance of a helper? Yes. GROOMING - STEP 3: How much assistance does the patient require from the helper? Only prior equipment preparation/set up from the helper GROOMING - SCORE: 5-SUP BATHING: Activity did not occur on this shift BATHING - SCORE: 0-UNK DRESSING - UPPER BODY: T-shirt/pullover shirt (four steps) ARTICLES SCORE Total number of steps: 4 DRESSING - UPPER BODY - STEP 1: Does the patient require help when dressing above the waist? Yes. DRESSING - UPPER BODY - STEP 2: Does the patient require the assistance of a helper? Yes. DRESSING - UPPER BODY - STEP 3: Does the helper touch the patient while dressing? Yes. DRESSING - UPPER BODY - STEP 4: How many of the total steps does the patient complete on his/her own? 3 DRESSING - UPPER BODY - SCORE: 4-MIN DRESSING - LOWER BODY: Underwear (three steps) ARTICLES SCORE Total number of steps: 3 DRESSING - LOWER BODY - STEP 1: Does the patient require help when dressing below the waist? Yes. DRESSING - LOWER BODY - STEP 2: Does the patient require the assistance of a helper? Yes. DRESSING - LOWER BODY - STEP 3: Does the helper touch the patient while dressing? Yes. DRESSING - LOWER BODY - STEP 4: How many of the total steps does the patient complete on his/her own? 0 DRESSING - LOWER BODY - STEP 5: Does patient require total assistance for dressing below the waist such as the helper holding clothin g and performing basically all the activities? Yes. DRESSING - LOWER BODY - SCORE: 1-DEP TOILETING: TOILETING - STEP 1: Does the patient require assistance with toileting? Yes. TOILETING - STEP 2: Does the patient require the assistance of a helper? Yes. TOILETING - STEP 3: How much assistance does the patient require from the helper? Hands-on assistance from the helper TOILETING - STEP 4: Of the 3 tasks: 1) Adjusting clothing prior to use, 2) Cleansing of perineal area, 3) Adjusting clot toby after use; How many tasks does the patient perform WITHOUT assistance of the helper? No tasks; h elper performs all three tasks TOILETING - SCORE: 1-DEP BLADDER MANAGEMENT: Patient requires assistance from two helpers when using bedpan. BLADDER MANAGEMENT - SCORE: 1-DEP BLADDER MANAGEMENT - FREQUENCY OF ACCIDENTS: BLADDER MANAGEMENT(FA) - STEP 1: How many accidents has the patient had during the current shift? 0 BOWEL MANAGEMENT: Activity did not occur on this shift BOWEL MANAGEMENT - SCORE: 7-IND BOWEL MANAGEMENT - FREQUENCY OF ACCIDENTS: BOWEL MANAGEMENT(FA) - STEP 1: How many accidents has the patient had during the current shift? 0 TRANSFERS: BED, CHAIR, WHEELCHAIR: Patient requires more than one helper and/or the use of a mechanical lift is utilized TRANSFERS: BED, CHAIR, WHEELCHAIR - SCORE: 1-DEP TRANSFERS: TOILET: Patient requires more than one helper and/or the use of a mechanical lift is utilized TRANSFERS: TOILET - SCORE: 1-DEP TRANSFERS: SHOWER: Activity did not occur on this shift TRANSFERS: SHOWER - SCORE: 0-UNK TRANSFERS: TUB: Activity did not occur on this shift TRANSFERS: TUB - SCORE: 0-UNK LOCOMOTION: WALK: Activity did not occur on this shift LOCOMOTION: WALK - SCORE: 0-UNK LOCOMOTION: WHEELCHAIR: Activity did not occur on this shift LOCOMOTION: WHEELCHAIR - SCORE: 0-UNK COMPREHENSION: COMPREHENSION - STEP 1: Does the patient require help to understand complex and abstract ideas (such as current events, finan pari, discharge planning, medical issues, relationships, etc)? No. COMPREHENSION - STEP 2: Does the patient need extra time, require an assistive device (such as glasses, hearing aids, or an a ugmentative communication system), OR does s/he have mild difficulty expressing complex and abstract ideas (including mild dysarthria or mild word-finding problems)? Yes. COMPREHENSION - SCORE: 6-DANIEL EXPRESSION EXPRESSION: TYPE: Both EXPRESSION - STEP 1: Does the patient require help expressing complex and abstract ideas (such as current events, finances , discharge planning, medical issues, relationships, etc)? Yes. EXPRESSION - STEP 2: Does the patient require help to express basic necessities or ideas (such as hunger, thirst, sleep, s afety, daily schedule, room location, or discomfort) half or more of the time? No. EXPRESSION - STEP 3: How often does the patient need help to express directions and conversation about basic needs? Less t lacy 10% of the time EXPRESSION - SCORE: 5-SUP SOCIAL INTERACTION: SOCIAL INTERACTION - STEP 1: Does the patient require a helper to interact with others in social and therapeutic situations? No. SOCIAL INTERACTION - STEP 2: Does the patient need extra time in social situations, OR does s/he interact with staff, other patien ts, and family members ONLY in structured environments, OR does s/he require medication for social in teraction? Yes, patient needs extra time SOCIAL INTERACTION - SCORE: 6-DANIEL PROBLEM SOLVING: PROBLEM SOLVING - STEP 1: Does the patient need help to solve complex problems such as managing a checking account or confronti ng interpersonal problems? Yes. PROBLEM SOLVING - STEP 2: Does the patient solve basic routine problems half or more of the time? Yes. PROBLEM SOLVING - STEP 3: How often does the patient need help to solve basic routine problems? Less than 10% of the time PROBLEM SOLVING - SCORE: 5-SUP MEMORY: MEMORY - STEP 1: Does the patient need help to remember frequently encountered people, daily routines, and executing r equests? No. MEMORY - STEP 2: Does the patient have slight difficulty recognizing frequently encountered people, daily routines, or executing requests without the need for repetition or using self-initiated or environmental cues to remember? Yes. MEMORY - SCORE: 6-DANIEL SIGNATURE PANEL: The following modified sections: Eating - Score, Grooming - Score, Bathing - Score, Dressing - Upper Body - Score, Dressing - Lower Body - Score, Toileting - Score, Bladder Management - Score, Bowel Man agement - Score, Transfers: Bed, Chair, Wheelchair - Score, Transfers: Toilet - Score, Transfers: Charlene wer - Score, Transfers: Tub - Score, Locomotion: Walk - Score, Locomotion: Wheelchair - Score, Compre hension - Score, Expression - Score, Social Interaction - Score, Problem Solving - Score, Memory - Sc ore were [electronically] signed by Loida Mauricio C.N.A. on TueNov 06 2017 16:21:00 GMT-0500 (Cent[place] Daylight Time)
[2017-11-06] MEDS: SOD FERRIC GLUC COMPLX/SUCROSE 125 MG in NA CHLORIDE 0.9% 100 ML IV SCH (18:34)
[2017-11-06] MEDS: TRAZODONE 150 MG TAB PO SCH (21:08)
[2017-11-06] MEDS: DOXAZOSIN 2 MG TAB PO SCH (21:08)
[2017-11-06] MEDS: MIRTAZAPINE 15 MG TAB PO SCH (21:09)
--- NOTE | 2017-11-07 03:40 | FAST ---
SHIFT START DATE/TIME: 11/06/2017 19:00 (CDT) SHIFT END DATE/TIME: 11/07/2017 07:00 (CDT) NAME CHARIS MCKEON DATE OF : 1955 DATE OF ADMISSION: 10/25/2017 14:59 (CDT) PHONE: AGE: 62 N# [id number] GENDER: Female ENCOUNTER PHYSICIAN: Dr. Marino Villar M.D. ADMISSION DIAGNOSIS: - Orthopaedic Disorders 08 - Other Orthopaedic (08.9) Bilateral Tibial Plateau Fracture. EATING: Activity did not occur on this shift EATING - SCORE: 0-UNK GROOMING: Activity did not occur on this shift GROOMING - SCORE: 0-UNK BATHING: Activity did not occur on this shift BATHING - SCORE: 0-UNK DRESSING - UPPER BODY: Patient is not dressing in public clothing ARTICLES SCORE Total number of steps: 0 DRESSING - UPPER BODY - SCORE: 0-UNK DRESSING - LOWER BODY: Patient is not dressing in public clothing ARTICLES SCORE Total number of steps: 0 DRESSING - LOWER BODY - SCORE: 0-UNK TOILETING: TOILETING - STEP 1: Does the patient require assistance with toileting? Yes. TOILETING - STEP 2: Does the patient require the assistance of a helper? Yes. TOILETING - STEP 3: How much assistance does the patient require from the helper? Hands-on assistance from the helper TOILETING - STEP 4: Of the 3 tasks: 1) Adjusting clothing prior to use, 2) Cleansing of perineal area, 3) Adjusting clot toby after use; How many tasks does the patient perform WITHOUT assistance of the helper? No tasks; h elper performs all three tasks TOILETING - SCORE: 1-DEP BLADDER MANAGEMENT: Patient depends entirely on [place] when using bedpan [helper rolls patient onto side / side-lying pos ition; positions bedpan; assists patient to roll onto bedpan; holds bedpan in place; assists patient off bedpan]. BLADDER MANAGEMENT - SCORE: 1-DEP BOWEL MANAGEMENT: Patient depends entirely on [place] when using bedpan [helper rolls patient onto side / side-lying pos ition; positions bedpan; assists patient to roll onto bedpan; holds bedpan in place; assists patient off bedpan]. BOWEL MANAGEMENT - SCORE: 1-DEP TRANSFERS: BED, CHAIR, WHEELCHAIR: Activity did not occur on this shift TRANSFERS: BED, CHAIR, WHEELCHAIR - SCORE: 0-UNK TRANSFERS: TOILET: Activity did not occur on this shift TRANSFERS: TOILET - SCORE: 0-UNK TRANSFERS: SHOWER: Activity did not occur on this shift TRANSFERS: SHOWER - SCORE: 0-UNK TRANSFERS: TUB: Activity did not occur on this shift TRANSFERS: TUB - SCORE: 0-UNK LOCOMOTION: WALK: Activity did not occur on this shift LOCOMOTION: WALK - SCORE: 0-UNK LOCOMOTION: WHEELCHAIR: Activity did not occur on this shift LOCOMOTION: WHEELCHAIR - SCORE: 0-UNK COMPREHENSION: COMPREHENSION: TYPE: Visual COMPREHENSION - STEP 1: Does the patient require help to understand complex and abstract ideas (such as current events, finan pari, discharge planning, medical issues, relationships, etc)? No. COMPREHENSION - STEP 2: Does the patient need extra time, require an assistive device (such as glasses, hearing aids, or an a ugmentative communication system), OR does s/he have mild difficulty expressing complex and abstract ideas (including mild dysarthria or mild word-finding problems)? Yes. COMPREHENSION - SCORE: 6-DANIEL EXPRESSION EXPRESSION: TYPE: Vocal EXPRESSION - STEP 1: Does the patient require help expressing complex and abstract ideas (such as current events, finances , discharge planning, medical issues, relationships, etc)? No. EXPRESSION - STEP 2: Does the patient need extra time, require an assistive device (such as augmentive communication syste m or a communication board), OR does s/he have mild difficulty expressing complex and abstract ideas (including mild dysarthria or mild word-find problems)? Yes. EXPRESSION - SCORE: 6-DANIEL SOCIAL INTERACTION: SOCIAL INTERACTION - STEP 1: Does the patient require a helper to interact with others in social and therapeutic situations? No. SOCIAL INTERACTION - STEP 2: Does the patient need extra time in social situations, OR does s/he interact with staff, other patien ts, and family members ONLY in structured environments, OR does s/he require medication for social in teraction? Yes, patient requires medication for social interaction SOCIAL INTERACTION - SCORE: 6-DANIEL PROBLEM SOLVING: PROBLEM SOLVING - STEP 1: Does the patient need help to solve complex problems such as managing a checking account or confronti ng interpersonal problems? No. PROBLEM SOLVING - STEP 2: Does the patient require extra time to make decisions or solve problems, OR does s/he have slight dif ficulty reading, initiating, or self-correcting in unfamiliar situations? Yes, patient needs extra ti me. PROBLEM SOLVING - SCORE: 6-DANIEL MEMORY: MEMORY - STEP 1: Does the patient need help to remember frequently encountered people, daily routines, and executing r equests? No. MEMORY - STEP 2: Does the patient have slight difficulty recognizing frequently encountered people, daily routines, or executing requests without the need for repetition or using self-initiated or environmental cues to remember? Yes. MEMORY - SCORE: 6-DANIEL
[2017-11-07] MEDS: TRAMADOL HCL 50 MG TAB PO PRN ×4 (03:50→20:35)
[2017-11-07] MEDS: CARVEDILOL 25 MG TAB PO SCH ×2 (05:14→17:07)
[2017-11-07] MEDS: ENOXAPARIN 30 MG/0.3 ML SQ SCH (07:02)
[2017-11-07] MEDS: LIDOCAINE 5% PATCH TOP SCH (07:02)
[2017-11-07] MEDS: PANTOPRAZOLE 40MG TABLET PO SCH (07:33)
[2017-11-07] MEDS: NEPRO SHAKE 237 ML CAN PO SCH ×2 (08:00→20:00)
[2017-11-07] MEDS: DOCUSATE NA 100 MG CAP PO SCH ×2 (08:00→20:34)
[2017-11-07] MEDS: VITAMIN D 5,000 UNIT CAP PO SCH (08:23)
[2017-11-07] MEDS: MAGNESIUM OXIDE 400 MG TAB PO SCH (08:23)
[2017-11-07] MEDS: CALCITROL 0.25 MCG CAP PO SCH (08:23)
[2017-11-07] MEDS: GABAPENTIN 300 MG CAP PO SCH ×2 (08:23→20:35)
[2017-11-07] MEDS: CETIRIZINE HCL 5 MG TABLET PO SCH (08:24)
[2017-11-07] MEDS: CRANBERRY FRUIT EXTRACT 200 MG CAP PO SCH ×2 (08:24→20:35)
[2017-11-07] MEDS: FE SULF/FA/VIT B COMP & C TAB PO SCH (08:24)
[2017-11-07] MEDS: FERROUS SULFATE 325 MG TAB PO SCH (08:25)
[2017-11-07] MEDS: AMLODIPINE 5 MG TAB PO SCH (08:25)
[2017-11-07] MEDS: LACTOBACILLUS/ACIDOPHILUS TAB PO SCH (08:26)
[2017-11-07] MEDS: ASPIRIN 81 MG CHEWABLE TABLET PO SCH (08:26)
[2017-11-07] MEDS: PROMOD 30 ML DOSE PO SCH ×2 (08:26→20:40)
[2017-11-07] MEDS: ISOSORBIDE MONO SR 30 MG TAB PO SCH ×2 (08:26→20:35)
[2017-11-07] MEDS: HYDRALAZINE HCL 25 MG TABLET PO SCH ×3 (08:26→20:35)
[2017-11-07] MEDS ORDERED: ONDANSETRON 4 MG (ODT) TAB PO PRN (09:55)
--- NOTE | 2017-11-07 16:33 | FAST ---
SHIFT START DATE/TIME: 11/07/2017 07:00 (CDT) SHIFT END DATE/TIME: 11/07/2017 19:00 (CDT) NAME CHARIS MCKEON DATE OF : 1955 DATE OF ADMISSION: 10/25/2017 14:59 (CDT) PHONE: AGE: 62 N# [id number] GENDER: Female ENCOUNTER PHYSICIAN: Dr. Marino Villar M.D. ADMISSION DIAGNOSIS: - Orthopaedic Disorders 08 - Other Orthopaedic (08.9) Bilateral Tibial Plateau Fracture. EATING: EATING - STEP 1: Does the patient require assistance when eating? Yes. EATING - STEP 2: Does the patient require the assistance of a helper? Yes. EATING - STEP 3: Does the patient perform half or more of the eating tasks? Yes. EATING - STEP 4: Does the patient need only supervision, cuing, coaxing OR help to apply an orthosis OR help to cut fo od, open containers, pour liquids, or butter bread? Yes. EATING - SCORE: 5-SUP GROOMING: Comb/brush hair Oral care GROOMING - STEP 1: Does the patient require assistance when grooming? Yes. GROOMING - STEP 2: Does the patient require the assistance of a helper? No. The patient only requires an assistive devic e, OR takes more than reasonable time to groom, OR there is a concern for safety as the patient groom s GROOMING - SCORE: 6-DANIEL BATHING: Activity did not occur on this shift BATHING - SCORE: 0-UNK DRESSING - UPPER BODY: Activity did not occur on this shift ARTICLES SCORE Total number of steps: 0 DRESSING - UPPER BODY - SCORE: 0-UNK DRESSING - LOWER BODY: Activity did not occur on this shift ARTICLES SCORE Total number of steps: 0 DRESSING - LOWER BODY - SCORE: 0-UNK TOILETING: TOILETING - STEP 1: Does the patient require assistance with toileting? Yes. TOILETING - STEP 2: Does the patient require the assistance of a helper? Yes. TOILETING - STEP 3: How much assistance does the patient require from the helper? Hands-on assistance from the helper TOILETING - STEP 4: Of the 3 tasks: 1) Adjusting clothing prior to use, 2) Cleansing of perineal area, 3) Adjusting clot toby after use; How many tasks does the patient perform WITHOUT assistance of the helper? One task TOILETING - SCORE: 2-MAX BLADDER MANAGEMENT: BLADDER MANAGEMENT - STEP 1: Does the patient control the bladder completely and intentionally without equipment or devices or med ications, and is always continent? No. BLADDER MANAGEMENT - STEP 2: Does the patient require the assistance of a helper? No, patient requires and independently uses an a ssistive device, such as a urinal, bedpan, bedside commode, catheter, absorbent pad, or collecting de vice BLADDER MANAGEMENT - SCORE: 6-DANIEL BOWEL MANAGEMENT: Activity did not occur on this shift BOWEL MANAGEMENT - SCORE: 7-IND TRANSFERS: BED, CHAIR, WHEELCHAIR: TRANSFERS: BED, CHAIR, WHEELCHAIR - STEP 1: Does the patient require assistance with bed, chair, or wheelchair transfers? Yes. TRANSFERS: BED, CHAIR, WHEELCHAIR - STEP 2: Does the patient require the assistance of a helper? Yes. TRANSFERS: BED, CHAIR, WHEELCHAIR - STEP 3: How much assistance does the patient require from the helper? Lifting of the patient TRANSFERS: BED, CHAIR, WHEELCHAIR - STEP 4: Does the helper lift the patient ONLY up? ONLY down? Up AND Down? Up AND Down. TRANSFERS: BED, CHAIR, WHEELCHAIR - SCORE: 2-MAX TRANSFERS: TOILET: Patient requires more than one helper and/or the use of a mechanical lift is utilized TRANSFERS: TOILET - SCORE: 1-DEP TRANSFERS: SHOWER: Activity did not occur on this shift TRANSFERS: SHOWER - SCORE: 0-UNK TRANSFERS: TUB: Activity did not occur on this shift TRANSFERS: TUB - SCORE: 0-UNK LOCOMOTION: WALK: Activity did not occur on this shift LOCOMOTION: WALK - SCORE: 0-UNK LOCOMOTION: WHEELCHAIR: Activity did not occur on this shift LOCOMOTION: WHEELCHAIR - SCORE: 0-UNK COMPREHENSION: COMPREHENSION - SCORE: 0-UNK EXPRESSION EXPRESSION - SCORE: 0-UNK SOCIAL INTERACTION: SOCIAL INTERACTION - SCORE: 0-UNK PROBLEM SOLVING: PROBLEM SOLVING - SCORE: 0-UNK MEMORY: MEMORY - SCORE: 0-UNK SIGNATURE PANEL: The following modified sections: Eating - Score, Grooming - Score, Bathing - Score, Dressing - Upper Body - Score, Dressing - Lower Body - Score, Toileting - Score, Bladder Management - Score, Bowel Man agement - Score, Transfers: Bed, Chair, Wheelchair - Score, Transfers: Toilet - Score, Transfers: Charlene wer - Score, Transfers: Tub - Score, Locomotion: Walk - Score, Locomotion: Wheelchair - Score, Compre hension - Score, Expression - Score, Social Interaction - Score, Problem Solving - Score, Memory - Sc ore were [electronically] signed by Riccardo Brunner on TueNov 07 2017 15:32:24 GMT-0500 (Central Daylight Time)
--- NOTE | 2017-11-07 16:35 | FAST ---
ENCOUNTER DATE AND TIME: 11/07/2017 08:00 (CDT) NAME CHARIS MCKEON DATE OF : 1955 DATE OF ADMISSION: 10/25/2017 14:59 (CDT) PHONE: AGE: 62 N# [id number] GENDER: Female ENCOUNTER PHYSICIAN: Dr. Marino Villar M.D. ADMISSION DIAGNOSIS: - Orthopaedic Disorders 08 - Other Orthopaedic (08.9) Bilateral Tibial Plateau Fracture. EATING: Activity did not occur on this shift EATING - SCORE: 0-UNK GROOMING: Activity did not occur on this shift GROOMING - SCORE: 0-UNK BATHING: Activity did not occur on this shift BATHING - SCORE: 0-UNK DRESSING - UPPER BODY: Activity did not occur on this shift Patient is not dressing in public clothing ARTICLES SCORE Total number of steps: 0 DRESSING - UPPER BODY - SCORE: 0-UNK DRESSING - LOWER BODY: Activity did not occur on this shift Patient is not dressing in public clothing ARTICLES SCORE Total number of steps: 0 DRESSING - LOWER BODY - SCORE: 0-UNK TOILETING: Activity did not occur on this shift TOILETING - SCORE: 0-UNK BLADDER MANAGEMENT: Activity did not occur on this shift BLADDER MANAGEMENT - SCORE: 7-IND BOWEL MANAGEMENT: Activity did not occur on this shift BOWEL MANAGEMENT - SCORE: 7-IND TRANSFERS: BED, CHAIR, WHEELCHAIR: TRANSFERS: BED, CHAIR, WHEELCHAIR - STEP 1: Does the patient require assistance with bed, chair, or wheelchair transfers? Yes. TRANSFERS: BED, CHAIR, WHEELCHAIR - STEP 2: Does the patient require the assistance of a helper? Yes. TRANSFERS: BED, CHAIR, WHEELCHAIR - STEP 3: How much assistance does the patient require from the helper? Only supervision TRANSFERS: BED, CHAIR, WHEELCHAIR - SCORE: 5-SUP TRANSFERS: TOILET: Activity did not occur on this shift TRANSFERS: TOILET - SCORE: 0-UNK TRANSFERS: SHOWER: Activity did not occur on this shift TRANSFERS: SHOWER - SCORE: 0-UNK TRANSFERS: TUB: Activity did not occur on this shift TRANSFERS: TUB - SCORE: 0-UNK LOCOMOTION: WALK: Activity did not occur on this shift LOCOMOTION: WALK - SCORE: 0-UNK LOCOMOTION: WHEELCHAIR: LOCOMOTION: WHEELCHAIR - STEP 1: Does the patient need help to go 150 feet in a wheelchair? No. LOCOMOTION: WHEELCHAIR - SCORE: 6-DANIEL LOCOMOTION: STAIRS: Activity did not occur on this shift LOCOMOTION: STAIRS - SCORE: 0-UNK COMPREHENSION: COMPREHENSION - SCORE: 0-UNK EXPRESSION EXPRESSION - SCORE: 0-UNK SOCIAL INTERACTION: SOCIAL INTERACTION - SCORE: 0-UNK PROBLEM SOLVING: PROBLEM SOLVING - SCORE: 0-UNK MEMORY: MEMORY - SCORE: 0-UNK SIGNATURE PANEL: The following modified sections: Transfers: Bed, Chair, Wheelchair - Score, Transfers: Toilet - Score , Locomotion: Walk - Score, Locomotion: Wheelchair - Score, Locomotion: Stairs - Score were [electron ically] signed by Aries Muhammad PTA on TueNov 07 2017 15:34:29 GMT-0500 (Central Daylight Time)
--- NOTE | 2017-11-07 16:36 | FAST ---
ENCOUNTER DATE AND TIME: 11/07/2017 08:00 (CDT) NAME CHARIS MCKEON DATE OF : 1955 DATE OF ADMISSION: 10/25/2017 14:59 (CDT) PHONE: AGE: 62 N# [id number] GENDER: Female ENCOUNTER PHYSICIAN: Dr. Marino Villar M.D. ADMISSION DIAGNOSIS: - Orthopaedic Disorders 08 - Other Orthopaedic (08.9) Bilateral Tibial Plateau Fracture. EATING: Activity did not occur on this shift EATING - SCORE: 0-UNK GROOMING: Wash, rinse, and dry face Wash, rinse, and dry hands GROOMING - STEP 1: Does the patient require assistance when grooming? No. GROOMING - SCORE: 7-IND BATHING: Abdomen Buttocks Left arm Left upper leg Perineal area Right arm Right lower leg and foot Right upper leg BATHING - STEP 1: Does the patient require assistance when bathing? Yes. BATHING - STEP 2: Does the patient require the assistance of a helper? Yes. BATHING - STEP 3: How much assistance does the patient require from the helper? Only supervision, cuing, coaxing, instr uctions, encouragement BATHING - SCORE: 5-SUP DRESSING - UPPER BODY: T-shirt/pullover shirt (four steps) ARTICLES SCORE Total number of steps: 4 DRESSING - UPPER BODY - STEP 1: Does the patient require help when dressing above the waist? Yes. DRESSING - UPPER BODY - STEP 2: Does the patient require the assistance of a helper? Yes. DRESSING - UPPER BODY - STEP 3: Does the helper touch the patient while dressing? No. DRESSING - UPPER BODY - SCORE: 5-SUP DRESSING - LOWER BODY: Underwear (three steps) ARTICLES SCORE Total number of steps: 3 DRESSING - LOWER BODY - STEP 1: Does the patient require help when dressing below the waist? Yes. DRESSING - LOWER BODY - STEP 2: Does the patient require the assistance of a helper? Yes. DRESSING - LOWER BODY - STEP 3: Does the helper touch the patient while dressing? Yes. DRESSING - LOWER BODY - STEP 4: How many of the total steps does the patient complete on his/her own? 2 DRESSING - LOWER BODY - SCORE: 3-MOD TOILETING: Activity did not occur on this shift TOILETING - SCORE: 0-UNK BLADDER MANAGEMENT: Activity did not occur on this shift BLADDER MANAGEMENT - SCORE: 7-IND BOWEL MANAGEMENT: Activity did not occur on this shift BOWEL MANAGEMENT - SCORE: 7-IND TRANSFERS: BED, CHAIR, WHEELCHAIR: Activity did not occur on this shift TRANSFERS: BED, CHAIR, WHEELCHAIR - SCORE: 0-UNK TRANSFERS: TOILET: Activity did not occur on this shift TRANSFERS: TOILET - SCORE: 0-UNK TRANSFERS: SHOWER: TRANSFERS: SHOWER - STEP 1: Does the patient require assistance with shower transfers? Yes. TRANSFERS: SHOWER - STEP 2: Does the patient require the assistance of a helper? Yes. TRANSFERS: SHOWER - STEP 3: How much assistance does the patient require from the helper? More than incidental help TRANSFERS: SHOWER - STEP 4: How much more help does the patient require from the helper? Lifting the patient either up OR down fr om the wheelchair onto the shower chair TRANSFERS: SHOWER - SCORE: 3-MOD TRANSFERS: TUB: Activity did not occur on this shift TRANSFERS: TUB - SCORE: 0-UNK LOCOMOTION: WALK: Activity did not occur on this shift LOCOMOTION: WALK - SCORE: 0-UNK LOCOMOTION: WHEELCHAIR: Activity did not occur on this shift LOCOMOTION: WHEELCHAIR - SCORE: 0-UNK LOCOMOTION: STAIRS: Activity did not occur on this shift LOCOMOTION: STAIRS - SCORE: 0-UNK COMPREHENSION: COMPREHENSION - STEP 1: Does the patient require help to understand complex and abstract ideas (such as current events, finan pari, discharge planning, medical issues, relationships, etc)? No. COMPREHENSION - STEP 2: Does the patient need extra time, require an assistive device (such as glasses, hearing aids, or an a ugmentative communication system), OR does s/he have mild difficulty expressing complex and abstract ideas (including mild dysarthria or mild word-finding problems)? No. COMPREHENSION - SCORE: 7-IND EXPRESSION EXPRESSION: TYPE: Non-Vocal EXPRESSION - STEP 1: Does the patient require help expressing complex and abstract ideas (such as current events, finances , discharge planning, medical issues, relationships, etc)? No. EXPRESSION - STEP 2: Does the patient need extra time, require an assistive device (such as augmentive communication syste m or a communication board), OR does s/he have mild difficulty expressing complex and abstract ideas (including mild dysarthria or mild word-find problems)? No. EXPRESSION - SCORE: 7-IND SOCIAL INTERACTION: SOCIAL INTERACTION - STEP 1: Does the patient require a helper to interact with others in social and therapeutic situations? No. SOCIAL INTERACTION - STEP 2: Does the patient need extra time in social situations, OR does s/he interact with staff, other patien ts, and family members ONLY in structured environments, OR does s/he require medication for social in teraction? No. SOCIAL INTERACTION - SCORE: 7-IND PROBLEM SOLVING: PROBLEM SOLVING - STEP 1: Does the patient need help to solve complex problems such as managing a checking account or confronti ng interpersonal problems? No. PROBLEM SOLVING - STEP 2: Does the patient require extra time to make decisions or solve problems, OR does s/he have slight dif ficulty reading, initiating, or self-correcting in unfamiliar situations? No. PROBLEM SOLVING - SCORE: 7-IND MEMORY: MEMORY - STEP 1: Does the patient need help to remember frequently encountered people, daily routines, and executing r equests? No. MEMORY - STEP 2: Does the patient have slight difficulty recognizing frequently encountered people, daily routines, or executing requests without the need for repetition or using self-initiated or environmental cues to remember? No. MEMORY - SCORE: 7-IND SIGNATURE PANEL: The following modified sections: Eating - Score, Grooming - Score, Bathing - Score, Dressing - Upper Body - Score, Dressing - Lower Body - Score, Toileting - Score, Transfers: Bed, Chair, Wheelchair - S core, Transfers: Toilet - Score, Transfers: Shower - Score, Transfers: Tub - Score, Comprehension - S core, Expression - Score, Social Interaction - Score, Problem Solving - Score, Memory - Score were [e lectronically] signed by KAYE Marc on TueNov 07 2017 15:35:51 T-0500 ([facility] Time)
--- NOTE | 2017-11-07 20:12 | R.PN ---
ENCOUNTER DATE AND TIME: 11/07/2017 19:09 (CDT) NAME CHARIS MCKEON DATE OF : 1955 DATE OF ADMISSION: 10/25/2017 14:59 (CDT) Bilateral Tibial Plateau FractureCHIEF COMPLAINT: Tibial plateau fractures bilaterally SUBJECTIVE: Pt denied any Shortness of Breath. Pt denied any depression. Non-weight bearing on both lower extremities. Bed mobility and transfers performed with minimum to mo derate assistance. Self-propelled wheelchair 500' with modified independence. VITAL SIGNS Temperature: 97.8 F SBP/DBP: 148/66 Pulse: 70 Resp: 16 MEDICATION ALLERGIES: Clindamycin Sulfamethoxazole Trimethoprim Clonidine Losartan ENVIRONMENTAL ALLERGIES: None Known - Substance Allergies None Known - Other Allergies None Known NURSING: - Shower allowing shower - Skin care per protocol PRECAUTIONS: - Weight Bearing Precaution NWB both LE - Fall Precaution Bed and chair alarm ACTIVITIES OOB only with supervision THERAPIES: - Occupational Therapy Evaluate and Treat. - Physical Therapy Evaluate and Treat. PHYSICAL EXAM - Gen Alert and awake Lying in bed No apparent distress Oriented to: person, time, and place - Skin No skin breakdown. Normacephalic - Eyes No abnormalities - ENMT No abnormalities - Neck No abnormalities - CVS RRR - Chest Clear - Abd Soft - GI Non distended Deferred - No abnormalities - Ext No significant edema - MSK Unremarkable - Neuro No focal deficits - Psych No abnormalities ASSESSMENT: Pt. is a 62 yo Right-handed white female.On 10/17/2017 she was admitted to [facility] with diagnosis Bilateral Tibial Plateau Fracture.Her impairment category is Orthopaedic Disord ers 08 - Other Orthopaedic (08.9).Pre-morbidly, Pt. was independent/mod-I in Sphincter Control, Castañeda sfers Control, Communication, Social Cognition, Self-Care, and Locomotion; and she had good Sphincter Control.Currently, she has deficits of Endurance, Safety Awareness, Transfers Control, Balance, Self -Care, and Locomotion.Pt. is now referred to [facility] for acute in-patient r ehabilitation in order to maximize patient's functional independence in activities of daily living, s trength, ROM, and mobility.- Rehab Goal Patient has realistic goal of being discharged at assistance level 6-Nestor to reside at Home with Fam ani/Relatives. MDM/PLAN: - Physical Therapy Decreased range of motion - to improve, our physical therapists will perform initial evaluation of p t's status upon admission and devise an individualized program for increasing patient's Range of [place] on. Gait dysfunction - to improve, our physical therapists will perform initial evaluation of pt's statu s upon admission and devise an individualized program for Gait Training, and Wheel Chair mobility Inability to transfer - to improve, our physical therapists will perform initial evaluation of pt's status upon admission and devise an individualized program for Bed mobility Need for home safety evaluation - to improve, our physical therapists will perform initial evaluatio n of pt's status upon admission and devise an individualized program for Home Evaluation Need in caregiver upon discharge - to improve, our physical therapists will perform initial evaluati on of pt's status upon admission and devise an individualized program for Caregiver Training New precaution - to improve, our physical therapists will perform initial evaluation of pt's status upon admission and devise an individualized program for Patient precaution education Edema - to improve, our physical therapists will perform initial evaluation of pt's status upon admi ssion and devise an individualized program for Elevation Training, and Lymphedema Therapy Poor balance - to improve, our physical therapists will perform initial evaluation of pt's status up on admission and devise an individualized program for Balance Training Poor endurance - to improve, our physical therapists will perform initial evaluation of pt's status upon admission and devise an individualized program for Endurance Training Weakness - to improve, our physical therapists will perform initial evaluation of pt's status upon a dmission and devise an individualized program for Aquatic Therapy, Neuromuscular Reeducation, and Str engthening Achieving independence - to improve, our physical therapists will perform initial evaluation of pt's status upon admission and devise an individualized program for Community Reintegration Activities - Diet Type Continue Regular - Diet - Liquid Texture Continue Regular - Tube Feed Continue N/A - Weight Bearing Precaution NWB both LE - Fall Precaution Bed and chair alarm - Skin care per protocol - Diet - Solid Texture Continue Regular - Shower allowing shower - Occupational Therapy ADL deficits - to improve, our occupation therapists will perform initial evaluation of pt's status upon admission and devise an individualized program for Bathing, Bed mobility, Community Reintegratio n, Cooking, Dressing, Eating, Fine Motor Skills, Grooming, Homemaking, Kitchen Mobility, Laundry, Pat ient Education, Safety Awareness, Splinting - Positioning, Transfers(Toilet, Tub, Shower), and Wheel Chair Management Need for primary care physician - to improve, our occupation therapists will perform initial evaluation of pt's status upon admission and devise an individualized program for Caregiver Training Weakness - to improve, our occupation therapists will perform initial evaluation of pt's status upon admission and devise an individualized program for Aquatic Therapy, Balance, Endurance, UE ROM, and UE strengthening FUNCTIONAL STATUS: UPDATED AT WEEKLY TEAM CONFERENCE - Bladder Same Bladder control device used: catheter Same accident frequency: 7-Ind - No accidents in the past 7 days - Bowel Same accident frequency: 7-Ind - No accidents in the past 7 days - Walking Same score based on distance walked: 0(N/A) - Wheelchair Same score based on distance traveled: 0(N/A) FUNCTIONAL STATUS: - Self-Care A. Eating sup B. Grooming sup C. Bathing Dep D. Dressing - Upper Dep E. Dressing - Lower Dep F. Toileting Dep - Sphincter Control G: Bladder control Dep H: Bowel control Nestor - Transfers Control I. Bed/Chair/Wheelchair Dep J. Toilet Dep K. Tub/Shower ADNO - Locomotion L. Walk/Wheelchair (C) Dep L. Walk/Wheelchair (W) ADNO M. Stairs ADNO - Communication N. Comprehension (B) Nestor O. Expression (B) Nestor - Social Cognition P. Social Interaction Nestor Q. Problem Solving Nestor R. Memory Nestor - Endurance Poor - Balance Poor - Safety Awareness Poor CURRENT FUNC. DEFICITS: Endurance, Safety Awareness, Transfers Control, Balance, Self-Care, and Locomotion SIGNATURE PANEL: (CDT)
[2017-11-07] MEDS: SOD FERRIC GLUC COMPLX/SUCROSE 125 MG in NA CHLORIDE 0.9% 100 ML IV SCH (20:33)
[2017-11-07] MEDS: DOXAZOSIN 2 MG TAB PO SCH (20:34)
[2017-11-07] MEDS: TRAZODONE 150 MG TAB PO SCH (20:35)
[2017-11-07] MEDS: MIRTAZAPINE 15 MG TAB PO SCH (20:35)
--- NOTE | 2017-11-07 21:36 | P.PN ---
Date of Service: 11/07/17 Vital Signs Temp Pulse Resp BP Pulse Ox 97.6 F 73 16 148/66 H 96 11/07/17 08:50 11/07/17 20:34 11/07/17 08:50 11/07/17 20:34 11/07/17 08:50 Medications Hydrocodone Bitart/Acetaminophen ([place] 5/325) 1 tab PO Q4HP PRN PRN Reason: PAIN MODERATE TO SEVERE Stop: 12/05/17 19:52 Last Admin: 11/05/17 21:07 Dose: 1 tab Albuterol Sulfate (Proventil 0.083% Neb Soln) 2.5 mg NEB [id number] PRN PRN Reason: SHORTNESS OF BREATH Stop: 11/24/17 20:01 Amlodipine Besylate (Norvasc) 5 mg PO DAILY [facility] Stop: 11/29/17 08:01 Last Admin: 11/07/17 08:25 Dose: 5 mg Aspirin (Aspirin Chewable) 81 mg PO DAILY [facility] Stop: 11/25/17 08:01 Last Admin: 11/07/17 08:26 Dose: 81 mg Bisacodyl (Dulcolax) 10 mg DE DAILY PRN PRN Reason: CONSTIPATION Stop: 11/24/17 20:25 Calcitriol (Rocaltrol) 0.5 mcg PO DAILY [facility] Stop: 11/25/17 08:01 Last Admin: 11/07/17 08:23 Dose: 0.5 mcg Carvedilol (Coreg) 25 mg PO BID 6AM 6PM [facility] Stop: 11/24/17 18:01 Last Admin: 11/07/17 17:07 Dose: 25 mg Cetirizine HCl (Zyrtec) 10 mg PO DAILY [facility] Stop: 11/25/17 08:01 Last Admin: 11/07/17 08:24 Dose: 10 mg Cholecalciferol (Vitamin D 5,000 Iu Cap) 5,000 unit PO DAILY [facility] Stop: 11/25/17 08:01 Last Admin: 11/07/17 08:23 Dose: 5,000 unit Collagenase (Santyl Ointment) 1 appl TOP DAILY [facility] Stop: 12/08/17 08:01 Docusate Sodium (Colace Cap) 100 mg PO BID [facility] Stop: 11/24/17 20:01 Last Admin: 06/25/18 20:34 Dose: 100 mg Doxazosin Mesylate (Cardura) 1 mg PO BEDTIME [facility] Stop: 12/02/17 21:01 Last Admin: 11/07/17 20:34 Dose: 1 mg Enoxaparin Sodium (Lovenox 30 Mg Inj) 30 mg SQ DAILY [facility] Stop: 11/24/17 16:01 Last Admin: 11/07/17 07:02 Dose: 30 mg Enteral Nutritional Formula (Nepro Shake) 237 ml PO BID [facility] Stop: 11/28/17 20:01 Last Admin: 11/07/17 20:00 Dose: Not Given Ferrous Sulfate (Feosol) 325 mg PO DAILY [facility] Stop: 11/25/17 08:01 Last Admin: 11/07/17 08:25 Dose: 325 mg Gabapentin (Neurontin) 600 mg PO BID [facility] Stop: 12/06/17 08:01 Last Admin: 11/07/17 20:35 Dose: 600 mg Home Med (Home Med) 1 ea IH DAILY [facility] Stop: 11/25/17 08:01 Hydralazine HCl (Apresoline) 100 mg PO TID [facility] Stop: 11/24/17 21:01 Last Admin: 11/07/17 20:35 Dose: 100 mg Ferric Sodium Gluconate Complex 125 mg/ Sodium Chloride 110 mls @ 100 mls/hr IV Q24H [facility] Stop: 12/02/17 19:01 Last Admin: 11/07/17 20:33 Dose: 110 mls Isosorbide Mononitrate (Imdur) 30 mg PO BID [facility] Stop: 11/25/17 08:01 Last Admin: 11/07/17 20:35 Dose: 30 mg Lactobacillus Acidoph/Bulgaricus (Lactinex) 1 tab PO DAILY [facility] Stop: 11/26/17 08:01 Last Admin: 11/07/17 08:26 Dose: 1 tab Lidocaine (Lidoderm 5% Patch) 1 patch TOP DAILY [facility] Stop: 12/04/17 08:01 Last Admin: 11/07/17 07:02 Dose: 1 patch Magnesium Hydroxide (Milk Of Magnesia) 30 ml PO BID PRN PRN Reason: CONSTIPATION Stop: 11/24/17 20:25 Magnesium Oxide (Mag 0x Tab) 400 mg PO DAILY [facility] Stop: 11/25/17 08:01 Last Admin: 11/07/17 08:23 Dose: 400 mg Mirtazapine (Remeron) 15 mg PO BEDTIME [facility] Stop: 11/24/17 21:01 Last Admin: 11/07/17 20:35 Dose: 15 mg Multivitamins/Iron (Hemocyte Plus) 1 tab PO DAILY WITH BREAKFAST [facility] Stop: 11/25/17 08:01 Last Admin: 11/07/17 08:24 Dose: 1 tab Nutritional Formula (Promod Liquid Protein) 30 ml PO BID [facility] Stop: 11/27/17 20:01 Last Admin: 11/07/17 20:40 Dose: 30 ml Ondansetron HCl (Zofran) 4 mg PO Q4H PRN PRN Reason: NAUSEA / VOMITING Stop: 12/07/17 09:56 Last Admin: 11/07/17 10:03 Dose: 4 mg Pantoprazole Sodium (Protonix Tab) 40 mg PO ACB [facility] Stop: 11/25/17 07:31 Last Admin: 11/07/17 07:33 Dose: 40 mg Senna/Docusate Sodium (Senokot-S) 2 tab PO BEDTIME PRN PRN Reason: CONSTIPATION Stop: 11/24/17 20:25 Last Admin: 11/06/17 19:30 Dose: 2 tab Sodium Biphosphate/Sodium Phosphate (Fleet Enema Adult) 133 ml DE DAILY PRN PRN Reason: CONSTIPATION Stop: 11/24/17 20:26 Tramadol HCl (Ultram) 100 mg PO Q4H PRN PRN Reason: PAIN Stop: 12/05/17 17:05 Last Admin: 11/07/17 20:35 Dose: 100 mg Trazodone HCl (Desyrel) 150 mg PO BEDTIME [facility] Stop: 11/24/17 21:01 Last Admin: 11/07/17 20:35 Dose: 150 mg Microbiology Results 10/30/17 05:27 Clean Catch Urine [place] Count - Final >100,000 CFU/ML. 10/30/17 05:27 Clean Catch Urine - Final Escherichia Coli Enterococcus Faecalis 10/29/17 16:40 Stool Occult Blood - Final 10/25/17 20:15 Clean Catch Urine [place] Count - Final <10,000 CFU/ML. 10/25/17 20:15 Clean Catch Urine - Final Assessment/ Plan: Nephrology CPS stable without CP or SOB. No acute events overnight. Doing well. +Appetite Vitals, medications, blood work and imaging reviewed in the chart. General: Alert, Oriented x3, Cooperative HEENT: Atraumatic, Mucous membr. moist/pink Neck: Supple Respiratory: Clear to auscultation bilaterally Cardiovascular: LE edema 1+ L>R, Regular rate/rhythm, No rubs Gastrointestinal: Soft and benign, Non-distended, No guarding Musculoskeletal: No clubbing, No contractures Integumentary: No rashes, No cyanosis Neurological: Normal speech Laboratory Data (last 24 hrs) 10/17/17 13:05: PT 11.2, INR 0.95, APTT 27.2 10/17/17 13:05: WBC 9.1 D, Hgb 9.5 L, Hct 29.8 L, Plt Count 217 D 10/17/17 13:05: B-Natriuretic Peptide 449 H 10/17/17 13:05: Sodium 135, Potassium 4.0, BUN 33 H, Creatinine 2.09 H, Glucose 89, Magnesium 2.3 D, Total Bilirubin < 0.1 L, AST 13, ALT 7 L, Alkaline Phosphatase 51, Lipase 18 L Imagings Data: EXAM DESCRIPTION: RAD - Chest Single View - 10/17/2017 12:50 pm CLINICAL HISTORY: Cough COMPARISON: 02/05/2016 FINDINGS: Portable technique limits examination quality. The lungs are emphysematous but grossly clear. The heart is normal in size. No displaced fractures. IMPRESSION: No acute intrathoracic process suspected. Conclusions/Impression: A/ MINDI/ CKD IV. Acidosis. Hyponatremia. HTN with CKD. Diastolic CHF, chronic. Anemia in chronic illness. Iron deficiency. Multiple LE traumatic fractures sp fall. Chronic pain syndrome. Slow transit constipation. P/ Continue current POC and Medications. Increase Doxazosin 2mg qhs. Change diet 2g Na/ 2g K Encourage PT as tolerated. Pain control as needed. AM labs. Daily weight. No NSAIDs.
--- NOTE | 2017-11-08 03:10 | FAST ---
SHIFT START DATE/TIME: 11/07/2017 19:00 (CDT) SHIFT END DATE/TIME: 11/08/2017 07:00 (CDT) NAME CHARIS MCKEON DATE OF : 1955 DATE OF ADMISSION: 10/25/2017 14:59 (CDT) PHONE: AGE: 62 N# [id number] GENDER: Female ENCOUNTER PHYSICIAN: Dr. Marino Villar M.D. ADMISSION DIAGNOSIS: - Orthopaedic Disorders 08 - Other Orthopaedic (08.9) Bilateral Tibial Plateau Fracture. EATING: Activity did not occur on this shift EATING - SCORE: 0-UNK GROOMING: Activity did not occur on this shift GROOMING - SCORE: 0-UNK BATHING: Activity did not occur on this shift BATHING - SCORE: 0-UNK DRESSING - UPPER BODY: Activity did not occur on this shift ARTICLES SCORE Total number of steps: 0 DRESSING - UPPER BODY - SCORE: 0-UNK DRESSING - LOWER BODY: Activity did not occur on this shift ARTICLES SCORE Total number of steps: 0 DRESSING - LOWER BODY - SCORE: 0-UNK TOILETING: Activity did not occur on this shift TOILETING - SCORE: 0-UNK BLADDER MANAGEMENT: Patient depends entirely on [place] when using bedpan [helper rolls patient onto side / side-lying pos ition; positions bedpan; assists patient to roll onto bedpan; holds bedpan in place; assists patient off bedpan]. BLADDER MANAGEMENT - SCORE: 1-DEP BLADDER MANAGEMENT - FREQUENCY OF ACCIDENTS: BLADDER MANAGEMENT(FA) - STEP 1: How many accidents has the patient had during the current shift? 1 BOWEL MANAGEMENT: Activity did not occur on this shift BOWEL MANAGEMENT - SCORE: 7-IND TRANSFERS: BED, CHAIR, WHEELCHAIR: Activity did not occur on this shift TRANSFERS: BED, CHAIR, WHEELCHAIR - SCORE: 0-UNK TRANSFERS: TOILET: Activity did not occur on this shift TRANSFERS: TOILET - SCORE: 0-UNK TRANSFERS: SHOWER: Activity did not occur on this shift TRANSFERS: SHOWER - SCORE: 0-UNK TRANSFERS: TUB: Activity did not occur on this shift TRANSFERS: TUB - SCORE: 0-UNK LOCOMOTION: WALK: Activity did not occur on this shift LOCOMOTION: WALK - SCORE: 0-UNK LOCOMOTION: WHEELCHAIR: Activity did not occur on this shift LOCOMOTION: WHEELCHAIR - SCORE: 0-UNK COMPREHENSION: COMPREHENSION - STEP 1: Does the patient require help to understand complex and abstract ideas (such as current events, finan pari, discharge planning, medical issues, relationships, etc)? No. COMPREHENSION - STEP 2: Does the patient need extra time, require an assistive device (such as glasses, hearing aids, or an a ugmentative communication system), OR does s/he have mild difficulty expressing complex and abstract ideas (including mild dysarthria or mild word-finding problems)? Yes. COMPREHENSION - SCORE: 6-DANIEL EXPRESSION EXPRESSION - STEP 1: Does the patient require help expressing complex and abstract ideas (such as current events, finances , discharge planning, medical issues, relationships, etc)? No. EXPRESSION - STEP 2: Does the patient need extra time, require an assistive device (such as augmentive communication syste m or a communication board), OR does s/he have mild difficulty expressing complex and abstract ideas (including mild dysarthria or mild word-find problems)? Yes. EXPRESSION - SCORE: 6-DANIEL SOCIAL INTERACTION: SOCIAL INTERACTION - STEP 1: Does the patient require a helper to interact with others in social and therapeutic situations? No. SOCIAL INTERACTION - STEP 2: Does the patient need extra time in social situations, OR does s/he interact with staff, other patien ts, and family members ONLY in structured environments, OR does s/he require medication for social in teraction? Yes, patient requires medication for social interaction SOCIAL INTERACTION - SCORE: 6-DANIEL PROBLEM SOLVING: PROBLEM SOLVING - STEP 1: Does the patient need help to solve complex problems such as managing a checking account or confronti ng interpersonal problems? No. PROBLEM SOLVING - STEP 2: Does the patient require extra time to make decisions or solve problems, OR does s/he have slight dif ficulty reading, initiating, or self-correcting in unfamiliar situations? Yes, patient needs extra ti me. PROBLEM SOLVING - SCORE: 6-DANIEL MEMORY: MEMORY - STEP 1: Does the patient need help to remember frequently encountered people, daily routines, and executing r equests? No. MEMORY - STEP 2: Does the patient have slight difficulty recognizing frequently encountered people, daily routines, or executing requests without the need for repetition or using self-initiated or environmental cues to remember? Yes. MEMORY - SCORE: 6-DANIEL SIGNATURE PANEL: The following modified sections: Eating - Score, Grooming - Score, Bathing - Score, Dressing - Upper Body - Score, Dressing - Lower Body - Score, Toileting - Score, Bladder Management - Score, Bowel Man agement - Score, Transfers: Bed, Chair, Wheelchair - Score, Transfers: Toilet - Score, Transfers: Charlene wer - Score, Transfers: Tub - Score, Locomotion: Walk - Score, Locomotion: Wheelchair - Score, Compre hension - Score, Expression - Score, Social Interaction - Score, Problem Solving - Score, Memory - Sc ore were [electronically] signed by Bri Walton RN on TueNov 08 2017 02:10:26 T-0500 ([facility])
[2017-11-08 03:38] VITALS: O2SAT 96
[2017-11-08] MEDS: CARVEDILOL 25 MG TAB PO SCH (05:19)
[2017-11-08] MEDS: LIDOCAINE 5% PATCH TOP SCH (07:26)
[2017-11-08] MEDS: ENOXAPARIN 30 MG/0.3 ML SQ SCH (07:26)
[2017-11-08] MEDS: PANTOPRAZOLE 40MG TABLET PO SCH (07:27)
[2017-11-08] MEDS: NEPRO SHAKE 237 ML CAN PO SCH (08:00)
[2017-11-08] MEDS: DOCUSATE NA 100 MG CAP PO SCH (08:00)
[2017-11-08] MEDS ORDERED: COLLAGENASE 30 GM OINTMENT TOP SCH (08:00)
[2017-11-08] MEDS: PROMOD 30 ML DOSE PO SCH (08:30)
[2017-11-08] MEDS: CRANBERRY FRUIT EXTRACT 200 MG CAP PO SCH (08:31)
[2017-11-08] MEDS: ASPIRIN 81 MG CHEWABLE TABLET PO SCH (08:31)
[2017-11-08] MEDS: GABAPENTIN 300 MG CAP PO SCH (08:31)
[2017-11-08] MEDS: FERROUS SULFATE 325 MG TAB PO SCH (08:31)
[2017-11-08] MEDS: CETIRIZINE HCL 5 MG TABLET PO SCH (08:31)
[2017-11-08] MEDS: CALCITROL 0.25 MCG CAP PO SCH (08:31)
[2017-11-08] MEDS: VITAMIN D 5,000 UNIT CAP PO SCH (08:31)
[2017-11-08] MEDS: MAGNESIUM OXIDE 400 MG TAB PO SCH (08:31)
[2017-11-08] MEDS: LACTOBACILLUS/ACIDOPHILUS TAB PO SCH (08:32)
[2017-11-08] MEDS: TRAMADOL HCL 50 MG TAB PO PRN ×2 (08:32→13:43)
[2017-11-08] MEDS: HYDRALAZINE HCL 25 MG TABLET PO SCH ×2 (08:32→13:43)
[2017-11-08] MEDS: FE SULF/FA/VIT B COMP & C TAB PO SCH (08:32)
[2017-11-08] MEDS: ISOSORBIDE MONO SR 30 MG TAB PO SCH (08:33)
[2017-11-08] MEDS: AMLODIPINE 5 MG TAB PO SCH (08:34)
[2017-11-08 09:18] VITALS: TEMP 97.6
--- NOTE | 2017-11-08 12:41 | FAST ---
ENCOUNTER DATE AND TIME: 11/02/2017 08:00 (CDT) NAME CHARIS MCKEON DATE OF : 1955 DATE OF ADMISSION: 10/25/2017 14:59 (CDT) PHONE: AGE: 62 [facility]# [id number] GENDER: Female ENCOUNTER PHYSICIAN: Dr. Marino Villar M.D. ADMISSION DIAGNOSIS: - Orthopaedic Disorders 08 - Other Orthopaedic (08.9) Bilateral Tibial Plateau Fracture. EATING: EATING - STEP 1: Does the patient require assistance when eating? No. EATING - SCORE: 7-IND GROOMING: Comb/brush hair Oral care Wash, rinse, and dry face Wash, rinse, and dry hands GROOMING - STEP 1: Does the patient require assistance when grooming? No. GROOMING - SCORE: 7-IND BATHING: Abdomen Buttocks Chest Left arm Left upper leg Perineal area Right arm Right upper leg BATHING - STEP 1: Does the patient require assistance when bathing? Yes. BATHING - STEP 2: Does the patient require the assistance of a helper? Yes. BATHING - STEP 3: How much assistance does the patient require from the helper? Only incidental help such as placement of a wash cloth in his/her hand a few times as s/he bathes OR help to bathe just one or two areas of the body BATHING - SCORE: 4-MIN DRESSING - UPPER BODY: T-shirt/pullover shirt (four steps) ARTICLES SCORE Total number of steps: 4 DRESSING - UPPER BODY - STEP 1: Does the patient require help when dressing above the waist? No. DRESSING - UPPER BODY - SCORE: 7-IND DRESSING - LOWER BODY: Underwear (three steps) ARTICLES SCORE Total number of steps: 3 DRESSING - LOWER BODY - STEP 1: Does the patient require help when dressing below the waist? Yes. DRESSING - LOWER BODY - STEP 2: Does the patient require the assistance of a helper? Yes. DRESSING - LOWER BODY - STEP 3: Does the helper touch the patient while dressing? Yes. DRESSING - LOWER BODY - STEP 4: How many of the total steps does the patient complete on his/her own? 2 DRESSING - LOWER BODY - SCORE: 3-MOD TOILETING: Activity did not occur on this shift TOILETING - SCORE: 0-UNK BLADDER MANAGEMENT: Activity did not occur on this shift BLADDER MANAGEMENT - SCORE: 7-IND BOWEL MANAGEMENT: Activity did not occur on this shift BOWEL MANAGEMENT - SCORE: 7-IND TRANSFERS: BED, CHAIR, WHEELCHAIR: Activity did not occur on this shift TRANSFERS: BED, CHAIR, WHEELCHAIR - SCORE: 0-UNK TRANSFERS: TOILET: Activity did not occur on this shift TRANSFERS: TOILET - SCORE: 0-UNK TRANSFERS: SHOWER: TRANSFERS: SHOWER - STEP 1: Does the patient require assistance with shower transfers? Yes. TRANSFERS: SHOWER - STEP 2: Does the patient require the assistance of a helper? Yes. TRANSFERS: SHOWER - STEP 3: How much assistance does the patient require from the helper? More than incidental help TRANSFERS: SHOWER - STEP 4: How much more help does the patient require from the helper? Lifting the patient up AND down from the wheelchair onto the shower chair TRANSFERS: SHOWER - SCORE: 2-MAX TRANSFERS: TUB: Activity did not occur on this shift TRANSFERS: TUB - SCORE: 0-UNK LOCOMOTION: WALK: Activity did not occur on this shift LOCOMOTION: WALK - SCORE: 0-UNK LOCOMOTION: WHEELCHAIR: Activity did not occur on this shift LOCOMOTION: WHEELCHAIR - SCORE: 0-UNK LOCOMOTION: STAIRS: Activity did not occur on this shift LOCOMOTION: STAIRS - SCORE: 0-UNK COMPREHENSION: COMPREHENSION: TYPE: Both COMPREHENSION - STEP 1: Does the patient require help to understand complex and abstract ideas (such as current events, finan pari, discharge planning, medical issues, relationships, etc)? No. COMPREHENSION - STEP 2: Does the patient need extra time, require an assistive device (such as glasses, hearing aids, or an a ugmentative communication system), OR does s/he have mild difficulty expressing complex and abstract ideas (including mild dysarthria or mild word-finding problems)? Yes. COMPREHENSION - SCORE: 6-DANIEL EXPRESSION EXPRESSION: TYPE: Both EXPRESSION - STEP 1: Does the patient require help expressing complex and abstract ideas (such as current events, finances , discharge planning, medical issues, relationships, etc)? No. EXPRESSION - STEP 2: Does the patient need extra time, require an assistive device (such as augmentive communication syste m or a communication board), OR does s/he have mild difficulty expressing complex and abstract ideas (including mild dysarthria or mild word-find problems)? Yes. EXPRESSION - SCORE: 6-DANIEL SOCIAL INTERACTION: SOCIAL INTERACTION - STEP 1: Does the patient require a helper to interact with others in social and therapeutic situations? No. SOCIAL INTERACTION - STEP 2: Does the patient need extra time in social situations, OR does s/he interact with staff, other patien ts, and family members ONLY in structured environments, OR does s/he require medication for social in teraction? Yes, patient needs extra time SOCIAL INTERACTION - SCORE: 6-DANIEL PROBLEM SOLVING: PROBLEM SOLVING - STEP 1: Does the patient need help to solve complex problems such as managing a checking account or confronti ng interpersonal problems? No. PROBLEM SOLVING - STEP 2: Does the patient require extra time to make decisions or solve problems, OR does s/he have slight dif ficulty reading, initiating, or self-correcting in unfamiliar situations? Yes, patient needs extra ti me. PROBLEM SOLVING - SCORE: 6-DANIEL MEMORY: MEMORY - STEP 1: Does the patient need help to remember frequently encountered people, daily routines, and executing r equests? No. MEMORY - STEP 2: Does the patient have slight difficulty recognizing frequently encountered people, daily routines, or executing requests without the need for repetition or using self-initiated or environmental cues to remember? Yes. MEMORY - SCORE: 6-DANIEL SIGNATURE PANEL: The following modified sections: Eating - Score, Grooming - Score, Bathing - Score, Dressing - Upper Body - Score, Dressing - Lower Body - Score, Toileting - Score, Transfers: Bed, Chair, Wheelchair - S core, Transfers: Toilet - Score, Transfers: Tub - Score, Transfers: Shower - Score, Comprehension - S core, Expression - Score, Social Interaction - Score, Problem Solving - Score, Memory - Score were [e lectronically] signed by Fiona Kong OT on TueNov 08 2017 11:41:22 T-0500 ([facility])
[2017-11-08 13:10] VITALS: BP 148/64
--- NOTE | 2017-11-08 16:07 | FAST ---
ENCOUNTER DATE AND TIME: 11/08/2017 08:00 (CDT) NAME CHARIS MCKEON DATE OF : 1955 DATE OF ADMISSION: 10/25/2017 14:59 (CDT) PHONE: AGE: 62 N# [id number] GENDER: Female ENCOUNTER PHYSICIAN: Dr. Marino Villar M.D. ADMISSION DIAGNOSIS: - Orthopaedic Disorders 08 - Other Orthopaedic (08.9) Bilateral Tibial Plateau Fracture. EATING: Activity did not occur on this shift EATING - SCORE: 0-UNK GROOMING: Activity did not occur on this shift GROOMING - SCORE: 0-UNK BATHING: Activity did not occur on this shift BATHING - SCORE: 0-UNK DRESSING - UPPER BODY: Activity did not occur on this shift Patient is not dressing in public clothing ARTICLES SCORE Total number of steps: 0 DRESSING - UPPER BODY - SCORE: 0-UNK DRESSING - LOWER BODY: Activity did not occur on this shift Patient is not dressing in public clothing ARTICLES SCORE Total number of steps: 0 DRESSING - LOWER BODY - SCORE: 0-UNK TOILETING: Activity did not occur on this shift TOILETING - SCORE: 0-UNK BLADDER MANAGEMENT: Activity did not occur on this shift BLADDER MANAGEMENT - SCORE: 7-IND BOWEL MANAGEMENT: Activity did not occur on this shift BOWEL MANAGEMENT - SCORE: 7-IND TRANSFERS: BED, CHAIR, WHEELCHAIR: Activity did not occur on this shift TRANSFERS: BED, CHAIR, WHEELCHAIR - SCORE: 0-UNK TRANSFERS: TOILET: Activity did not occur on this shift TRANSFERS: TOILET - SCORE: 0-UNK TRANSFERS: SHOWER: Activity did not occur on this shift TRANSFERS: SHOWER - SCORE: 0-UNK TRANSFERS: TUB: Activity did not occur on this shift TRANSFERS: TUB - SCORE: 0-UNK LOCOMOTION: WALK: Activity did not occur on this shift LOCOMOTION: WALK - SCORE: 0-UNK LOCOMOTION: WHEELCHAIR: Activity did not occur on this shift LOCOMOTION: WHEELCHAIR - SCORE: 0-UNK LOCOMOTION: STAIRS: Activity did not occur on this shift LOCOMOTION: STAIRS - SCORE: 0-UNK COMPREHENSION: COMPREHENSION - SCORE: 0-UNK EXPRESSION EXPRESSION - SCORE: 0-UNK SOCIAL INTERACTION: SOCIAL INTERACTION - SCORE: 0-UNK PROBLEM SOLVING: PROBLEM SOLVING - SCORE: 0-UNK MEMORY: MEMORY - SCORE: 0-UNK SIGNATURE PANEL: The following modified sections: Transfers: Bed, Chair, Wheelchair - Score, Transfers: Toilet - Score , Locomotion: Walk - Score, Locomotion: Wheelchair - Score, Locomotion: Stairs - Score were [electron michael] signed by Aries Muhammad PTA on TueNov 08 2017 15:07:38 GMT-0500 ([facility])
[2017-11-08] MEDS ORDERED: DOXAZOSIN 2 MG TAB PO SCH (21:00)
--- NOTE | 2017-11-08 21:48 | P.PN ---
Date of Service: 11/08/17 Vital Signs Temp Pulse Resp BP Pulse Ox 97.6 F 73 18 148/64 H 95 11/08/17 09:16 11/08/17 13:09 11/08/17 09:16 11/08/17 13:09 11/08/17 09:16 Microbiology Results 10/30/17 05:27 Clean Catch Urine [place] Count - Final >100,000 CFU/ML. 10/30/17 05:27 Clean Catch Urine - Final Escherichia Coli Enterococcus Faecalis 10/29/17 16:40 Stool Occult Blood - Final 10/25/17 20:15 Clean Catch Urine [place] Count - Final <10,000 CFU/ML. 10/25/17 20:15 Clean Catch Urine - Final Assessment/ Plan: Nephrology CPS stable without CP or SOB. No acute events overnight. Doing well. +Appetite Vitals, medications, blood work and imaging reviewed in the chart. General: Alert, Oriented x3, Cooperative HEENT: Atraumatic, Mucous membr. moist/pink Neck: Supple Respiratory: Clear to auscultation bilaterally Cardiovascular: LE edema 1+ L>R, Regular rate/rhythm, No rubs Gastrointestinal: Soft and benign, Non-distended, No guarding Musculoskeletal: No clubbing, No contractures Integumentary: No rashes, No cyanosis Neurological: Normal speech Laboratory Data (last 24 hrs) 10/17/17 13:05: PT 11.2, INR 0.95, APTT 27.2 10/17/17 13:05: WBC 9.1 D, Hgb 9.5 L, Hct 29.8 L, Plt Count 217 D 10/17/17 13:05: B-Natriuretic Peptide 449 H 10/17/17 13:05: Sodium 135, Potassium 4.0, BUN 33 H, Creatinine 2.09 H, Glucose 89, Magnesium 2.3 D, Total Bilirubin < 0.1 L, AST 13, ALT 7 L, Alkaline Phosphatase 51, Lipase 18 L Imagings Data: EXAM DESCRIPTION: RAD - Chest Single View - 10/17/2017 12:50 pm CLINICAL HISTORY: Cough COMPARISON: 02/05/2016 FINDINGS: Portable technique limits examination quality. The lungs are emphysematous but grossly clear. The heart is normal in size. No displaced fractures. IMPRESSION: No acute intrathoracic process suspected. Conclusions/Impression: A/ MINDI/ CKD IV. Acidosis. Hyponatremia. HTN with CKD. Diastolic CHF, chronic. Anemia in chronic illness. Iron deficiency. Multiple LE traumatic fractures sp fall. Chronic pain syndrome. Slow transit constipation. P/ Continue current POC and Medications. Encourage PT as tolerated. Pain control as needed. AM labs. Daily weight. No NSAIDs.
== END 2017-11-08 15:05 | DRG 560 ==
LOC: 5TH 10-25 14:59
PROVIDERS: ADMIT Psychiatry & Neurology Neurology with Special Qualifications in Child Neurology; ATTEND Psychiatry & Neurology Neurology with Special Qualifications in Child Neurology
DX: S82.142D Displaced bicondylar fracture of left tibia, subsequent encounter for closed fracture with routine healing (principal); N18.4 Chronic kidney disease, stage 4 (severe); N17.9 Acute kidney failure, unspecified; E87.2 Acidosis; E87.1 Hypo-osmolality and hyponatremia; I50.32 Chronic diastolic (congestive) heart failure; S82.141D Displaced bicondylar fracture of right tibia, subsequent encounter for closed fracture with routine healing; E87.5 Hyperkalemia; R33.9 Retention of urine, unspecified; D50.0 Iron deficiency anemia secondary to blood loss (chronic); J44.9 Chronic obstructive pulmonary disease, unspecified; I10 Essential (primary) hypertension; K21.9 Gastro-esophageal reflux disease without esophagitis; I12.9 Hypertensive chronic kidney disease with stage 1 through stage 4 chronic kidney disease, or unspecified chronic kidney disease; E78.5 Hyperlipidemia, unspecified; F41.9 Anxiety disorder, unspecified; G89.4 Chronic pain syndrome
CPT/HCPCS: 36415; 74018; 80048; 80053; 81001; 82040; 82274; 83735; 84100; 84134; 84550; 85025; 86850; 86900; 86901; 87077; 87086; 87088; 87186; 97542; J0885; J1650; J2916; J3590; P9016; Q4081

== ENCOUNTER 2018-02-07 09:38 | Emergency (ER) | payer OTHER ==
--- OUTSIDE RECORDS SUMMARY | 2018-02-07 09:56 | XMS REPORT | Clinical Summary ---
:1955 Author Organization [facility] Address [address] [place] [address] Care Team Providers Name Role Phone Asked, No Pcp Primary Care Provider Unavailable Allergies Active Allergy Reactions Severity Noted Date Comments Sulfamethoxazole-Trimethopri Other (See Comments) 11/25/2017 Kidney problems m Clindamycin Hives 11/25/2017 Clonidine 11/25/2017 Kidney problems Losartan 11/25/2017 Kidney problems Current Medications Prescription Sig. Disp. Refills Start Date End Date Status acetaminophen Take 650 mg by Active (TYLENOL) 325 MG mouth every 6 tablet (six) hours as needed for fever. Lactobacillus Take 1 tablet Active acidoph-L.bulgar by mouth 2 (FLORANEX) 1 (two) times a million cell tablet day. umeclidinium-vilant Inhale 1 puff Active gabriele (ANORO daily. ELLIPTA) 62.5-25 mcg/actuation blister with device arginine-vitamin Take by mouth Active C-vitamin E 2 (two) times (ARGINAID) 4.5 a day. gram-156 mg/9.2 gram powder in packet ascorbic acid, Take 500 mg by Active vitamin C, (VITAMIN mouth 2 (two) C) 500 MG tablet times a day. aspirin (ECOTRIN) Take 81 mg by Active 81 MG enteric mouth daily. coated tablet bisacodyl Insert 10 mg Active (DULCOLAX) 10 mg into the suppository rectum daily. As needed doxazosin (CARDURA) Take 1 mg by Active 1 MG tablet mouth nightly. cetirizine (ZyrTEC) Take 10 mg by Active 10 MG tablet mouth daily. cholecalciferol, Take by mouth. Active vitamin D3, 5,000 unit tablet carvedilol (COREG) Take 25 mg by Active 25 MG tablet mouth 2 (two) times a day with meals. cranberry 400 mg Take by mouth. Active capsule docusate sodium Take 100 mg by Active (COLACE) 100 MG mouth 2 (two) capsule times a day. gabapentin Take 100 mg by Active (NEURONTIN) 100 mg mouth 2 (two) capsule times a day. alum-mag Take 30 mL by Active hydroxide-simeth mouth 4 (four) (MAALOX PLUS) times a day as 200-200-20 mg/5 mL needed for suspension heartburn. magnesium hydroxide Take 30 mL by Active 400 mg/5 mL mouth daily. suspension mirtazapine Take 15 mg by Active (REMERON) 15 MG mouth nightly. tablet multivitamin with Take 1 tablet Active minerals tablet by mouth daily. sennosides-docusate Take 1 tablet Active sodium (SENOKOT-S) by mouth 8.6-50 mg per daily. tablet traMADol (ULTRAM) Take 50 mg by Active 50 mg tablet mouth every 6 (six) hours as needed for moderate pain. traZODone (DESYREL) Take 150 mg by Active 150 MG tablet mouth nightly. zinc sulfate Take 220 mg by Active (ZINCATE) 220 (50) mouth 2 (two) mg capsule times a day. doxycycline Take 100 mg by Discontinued (VIBRAMYCIN) 100 MG mouth 2 (two) 8 oral dosage form times a day. hydrALAZINE Take 25 mg by Discontinued (APRESOLINE) 25 MG mouth 3 8 tablet (three) times a day. amLODIPine Take 5 mg by Discontinued (NORVASC) 5 mg mouth daily. 8 tablet hydrALAZINE Take 1 tablet 90 tablet 0 12/06/2017 Discontinued (APRESOLINE) 50 MG (50 mg total) 8 tablet by mouth 3 (three) times a day for 30 days. amLODIPine Take 1 tablet 60 tablet 0 12/06/2017 (NORVASC) 5 mg (5 mg total) 8 tablet by mouth 2 (two) times a day for 30 days. meropenem 500 mg in Infuse 500 mg 12/06/2017 sodium chloride 0.9 into a venous 8 % MBP 50 mL IVPB catheter every 12 (twelve) hours for 36 days. sodium chloride Infuse 250 mg 12/06/2017 0.9% parenteral into a venous 8 solution 100 mL catheter every with DAPTOmycin other day for (PF) 500 mg recon 36 days. soln 250 mg pantoprazole Take 1 tablet 30 tablet 0 12/07/2017 (PROTONIX) 40 MG EC (40 mg total) 8 tablet by mouth daily for 30 days. hydrALAZINE Take 3 tablets 270 tablet 0 12/07/2017 (APRESOLINE) 25 MG (75 mg total) 8 tablet by mouth 3 (three) times a day for 30 days. Active Problems Problem Noted Date Scar 11/25/2017 Infected hardware in left leg 11/25/2017 Encounters Date Type Specialty Care Team Description 12/02/2017 Anesthesia Event Plastic Surgery Norm Whitehead CRNA 12/02/2017 Procedure Pass Plastic Surgery 12/02/2017 Surgery Plastic Surgery Anirudh Hart, CLOSURE KNEE WOUND MD USING GASTROCNEMIUS FLAP 11/29/2017 Anesthesia Event Plastic Surgery Richie Finnegan CRNA 11/29/2017 Procedure Pass Plastic Surgery 11/29/2017 Surgery Plastic Surgery Anirudh Hart, DEBRIDEMENT, KNEE W/ REMOVAL 15 antibiotic beads on one strand, PLACEMENT ANTIBIOTIC BEADS, ZARAGOZA INSERTION W/C-ARM 11/25/2017 - Hospital Encounter General Surgery Anirudh Hart, Infected hardware in left lower extremity, initial encounter (Primary Dx); 12/07/2017 MD Jhaveri; Claudio Sanabria Wound of left leg, nicky Jennings MD 11/25/2017 Anesthesia Event Plastic Surgery Markel Mcghee MD 11/25/2017 Procedure Pass Plastic Surgery 11/25/2017 Surgery Plastic Surgery Anirudh Hart, DEBRIDEMENT, KNEE W/ PLACEMENT ANTIBIOTIC BEADS x 15 after 02/06/2017 Social History Tobacco Use Types Packs/Day Years Used Date Former Smoker Cigarettes 0.5 45 Smokeless Tobacco: Former User Alcohol Use Drinks/Week oz/Week Comments Yes 1 Glasses of wine 0.6 occasional Sex Assigned at Date Recorded Not on file Last Filed Vital Signs Vital Sign Reading Time Taken Blood Pressure 153/68 12/07/2017 11:32 AM CDT Pulse 82 12/07/2017 11:32 AM CDT Temperature 37 C (98.6 F) 12/07/2017 11:32 AM CDT Respiratory Rate 18 12/07/2017 11:32 AM CDT Oxygen Saturation 96% 12/07/2017 11:32 AM CDT Inhaled Oxygen Concentration - - Weight 43.1 kg (95 lb) 12/02/2017 11:05 AM CDT Height 154.9 cm (5' 1") 12/02/2017 11:05 AM CDT Body Mass Index 17.95 12/02/2017 11:05 AM CDT Plan of Treatment Health Maintenance Due Date Last Done Comments CERVICAL CANCER SCREENING 1978 BREAST CANCER SCREENING 10/15/2007 COLON CANCER SCREENING 10/15/2007 SHINGRIX VACCINE (#1) 10/15/2007 ZOSTER VACCINE 2017 INFLUENZA VACCINE 12/14/2017 Implants Implanted Type Area Technical Communicator Device Expiration Model / Identifier Date Serial / Lot Cement Bone Full-Dose Premxd W/ Tobr Simplex P Pack 10/Ea - [id number] Surgical Left: MARYBEL 05/15/2019 [id number] / Implanted: Qty: 1 on 11/25/2017 by Anirudh Hart MD Bone Cement Knee ORTHOPEDICS / HIPS-KNEES [id number] Cement Bone Full-Dose Premxd W/ Tobr Simplex P Pack 10/Ea - [id number] Surgical Left: MARYBEL 02/12/2019 [id number] / Implanted: Qty: 1 on 11/29/2017 by Anirudh Hart MD Bone Cement Knee ORTHOPEDICS / HIPS-KNEES [id number] Drain Wnd 10fr Rnd Hbls W/ 1/8in Trocar Valeri Quinten Wht - [id number] Surgical N /A: N/A ETHICON DIV OF 2227 / Implanted: Qty: 1 on 12/02/2017 by Anirudh Hart MD Implants; VANCE & / Expanders; VANCE Extenders; Surgical Wires Procedures Procedure Name Priority Date/Time Associated Comments Diagnosis TRANSFUSE RED BLOOD Routine 01/18/2018 5:56 CELLS PM CDT TRANSFUSE RED BLOOD Routine 01/18/2018 5:56 CELLS PM CDT HC COMPLETE BLD COUNT Routine 12/07/2017 4:00 Results for this W/AUTO DIFF AM CDT procedure are in the results section. PREPARE RBC Timed 12/06/2017 2:47 Results for this PM CDT procedure are in the results section. TYPE AND SCREEN Timed 12/06/2017 2:47 Results for this PM CDT procedure are in the results section. HEMOGLOBIN & Routine 12/06/2017 10:02 Results for this HEMATOCRIT AM CDT procedure are in the results section. ZZESTIMATED GFR Routine 12/06/2017 3:16 Results for this AM CDT procedure are in the results section. BASIC METABOLIC PANEL Routine 12/06/2017 3:16 Results for this AM CDT procedure are in the results section. HC COMPLETE BLD COUNT Routine 12/06/2017 3:16 Results for this W/AUTO DIFF AM CDT procedure are in the results section. CREATINE KINASE, Routine 12/06/2017 3:16 Results for this TOTAL (CPK) AM CDT procedure are in the results section. ZZESTIMATED GFR Routine 12/05/2017 4:34 Results for this AM CDT procedure are in the results section. BASIC METABOLIC PANEL Routine 12/05/2017 4:34 Results for this AM CDT procedure are in the results section. HC COMPLETE BLD COUNT Routine 12/05/2017 4:34 Results for this W/AUTO DIFF AM CDT procedure are in the results section. POC GLUCOSE Routine 12/05/2017 12:29 Results for this AM CDT procedure are in the results section. ZZESTIMATED GFR Routine 12/04/2017 4:00 Results for this AM CDT procedure are in the results section. BASIC METABOLIC PANEL Routine 12/04/2017 4:00 Results for this AM CDT procedure are in the results section. ZZESTIMATED GFR Routine 12/03/2017 5:01 Results for this PM CDT procedure are in the results section. BASIC METABOLIC PANEL Routine 12/03/2017 5:01 Results for this PM CDT procedure are in the results section. ZZESTIMATED GFR Routine 12/03/2017 4:00 Results for this AM CDT procedure are in the results section. BASIC METABOLIC PANEL Routine 12/03/2017 4:00 Results for this AM CDT procedure are in the results section. POC GLUCOSE Routine 12/02/2017 11:26 Results for this PM CDT procedure are in the results section. POC GLUCOSE Routine 12/02/2017 8:07 Results for this PM CDT procedure are in the results section. ZZESTIMATED GFR Routine 12/02/2017 5:35 Results for this PM CDT procedure are in the results section. BASIC METABOLIC PANEL Routine 12/02/2017 5:35 Results for this PM CDT procedure are in the results section. XR KNEE 1 OR 2 VW STAT 12/02/2017 4:29 Results for this LEFT PM CDT procedure are in the results section. OK AN ELECTIVE Routine 12/02/2017 2:19 ENDOTRACHEAL AIRWAY PM CDT Procedure Note - Norm Whitehead CRNA - 12/02/2017 2:19 PM CDT Airway Date/Time: 12/02/2017 1:34 PM Performed by: NORM WHITEHEAD Authorized by: ZIGGY STOREY Location: OR Urgency: Elective Difficult Airway: No Performed by: resident/STEAM GENERATING POWERPLANT MECHANIC/AA Preoxygenated with 100% O2: Yes C-spine Precautions Maintained Throughout: Yes Mask Ventilation: Easy mask Final Airway Type: Endotracheal airway Final Endotracheal Airway: ETT Cuffed: Yes Technique Used: Direct laryngoscopy Devices/Methods Used in Placement: Intubating stylet Blade Type: Parham Laryngoscope Blade/Videolaryngoscope Blade Size: 2 ETT Size (mm): 6.5 Cuff at minimum occlusion pressure: Yes Measured from: Lips ETT to Lips (cm): 21 Placement Verified by: CO2 detection, direct visualization and equal breath sounds Laryngoscopic view: Grade I - full view of glottis Rapid Sequence Induction (RSI): No Modified RSI: No Number of Attempts at Approach: 1 MAGNESIUM LEVEL STAT 12/02/2017 1:57 PM CDT IONIZED CALCIUM, ARTERIAL STAT 12/02/2017 1:57 PM CDT GLUCOSE LEVEL, SYRINGE STAT 12/02/2017 1:57 PM CDT POTASSIUM, SYRINGE STAT 12/02/2017 1:57 PM CDT HEMOGLOBIN, SYRINGE STAT 12/02/2017 1:57 PM CDT ARTERIAL BLOOD GAS, STAT 12/02/2017 1:57 PM CDT Results for this CORRECTED procedure are in the results section. SODIUM LEVEL, SYRINGE STAT 12/02/2017 1:57 PM CDT LACTIC ACID, SYRINGE STAT 12/02/2017 1:57 PM CDT CLOSURE, WOUND, LOWER 12/02/2017 12:50 PM CDT Scar EXTREMITY, USING ROTATION FLAP Case Notes TF, EST 2.5 HRS Special Needs TF, EST 2.5 HRS HC COMPLETE BLD COUNT Routine 12/02/2017 9:35 AM CDT Results for this W/AUTO DIFF procedure are in the results section. ZZESTIMATED GFR Routine 12/02/2017 9:19 AM CDT BASIC METABOLIC PANEL Routine 12/02/2017 9:[address] HEAD WO CONTRAST STAT 12/01/2017 2:23 PM CDT CBC WITH PLATELET AND Routine 12/01/2017 4:45 AM CDT Results for this DIFFERENTIAL procedure are in the results section. ZZESTIMATED GFR Routine 12/01/2017 4:00 AM CDT BASIC METABOLIC PANEL Routine 12/01/2017 4:00 AM CDT HEMOGLOBIN & HEMATOCRIT Routine 11/30/2017 1:37 PM CDT SMEAR REVIEW Routine 11/30/2017 4:48 AM CDT ZZESTIMATED GFR Routine 11/30/2017 4:48 AM CDT PHOSPHORUS LEVEL Routine 11/30/2017 4:48 AM CDT BASIC METABOLIC PANEL Routine 11/30/2017 4:48 AM CDT HC COMPLETE BLD COUNT Routine 11/30/2017 4:48 AM CDT Results for this W/AUTO DIFF procedure are in the results section. XR TIBIA FIBULA 2 VW LEFT Routine 11/29/2017 4:56 PM CDT XR CHEST 1 VW PORTABLE Routine 11/29/2017 4:48 PM CDT OR FL < 1 HOUR Routine 11/29/2017 3:45 PM CDT OK AN ELECTIVE ENDOTRACHEAL Routine 11/29/2017 2:58 PM CDT AIRWAY Procedure Note - Richie Finnegan CRNA - 11/29/2017 2:58 PM CDT Airway Date/Time: 11/29/2017 2:53 PM Performed by: RICHIE FINNEGAN Authorized by: ALTAGRACIA FUNG Location: OR Urgency: Elective Difficult Airway: No Resident/STEAM GENERATING POWERPLANT MECHANIC/AA: RICHIE FINNEGAN Performed by: resident/STEAM GENERATING POWERPLANT MECHANIC/AA Preoxygenated with 100% O2: Yes C-spine Precautions Maintained Throughout: Yes Mask Ventilation: Easy mask Final Airway Type: Endotracheal airway Final Endotracheal Airway: ETT Cuffed: Yes Technique Used: Direct laryngoscopy Devices/Methods Used in Placement: Intubating stylet Insertion Site: Oral Blade Type: Parham Laryngoscope Blade/Videolaryngoscope Blade Size: 2 ETT Size (mm): 7.0 Cuff at minimum occlusion pressure: Yes Measured from: Lips ETT to Lips (cm): 21 Placement Verified by: CO2 detection, direct visualization and equal breath sounds Laryngoscopic view: Grade I - full view of glottis Rapid Sequence Induction (RSI): No Modified RSI: No Number of Attempts at Approach: 1 Pt was preoxygenated x3 min. Eyes taped after LOC. DL x1 by BING Finnegan with Parham 2 with grade 1 view. 7.0 ETT directly visualized pass through bj glottis atraumatically & cuffed to seal. Placement confirmed with bilateral breath sounds & ETCO2. Lips, teeth, gums unchanged. DEBRIDEMENT, LOWER EXTREMITY 11/29/2017 1:09 PM CDT Scar Case Notes TF, EST 90 MIN Special Needs TF, EST 90 MIN CREATINE KINASE, TOTAL Routine 11/29/2017 9:52 AM CDT Results for this (CPK) procedure are in the results section. PREPARE RBC Timed 11/29/2017 3:24 AM CDT PREPARE RBC Timed 11/29/2017 3:24 AM CDT TYPE AND SCREEN Routine 11/29/2017 3:24 AM CDT ZZESTIMATED GFR Routine 11/29/2017 3:24 AM CDT BASIC METABOLIC PANEL Routine 11/29/2017 3:24 AM CDT HC COMPLETE BLD COUNT Routine 11/29/2017 3:24 AM CDT Results for this W/AUTO DIFF procedure are in the results section. B NATRIURETIC PEPTIDE Routine 11/28/2017 5:00 PM CDT HC COMPLETE BLD COUNT Routine 11/28/2017 5:00 PM CDT Results for this W/AUTO DIFF procedure are in the results section. ZZESTIMATED GFR Routine 11/28/2017 2:12 PM CDT PHOSPHORUS LEVEL Routine 11/28/2017 2:12 PM CDT BASIC METABOLIC PANEL Routine 11/28/2017 2:12 PM CDT ZZESTIMATED GFR Routine 11/27/2017 4:00 AM CDT BASIC METABOLIC PANEL Routine 11/27/2017 4:00 AM CDT ZZESTIMATED GFR Routine 11/26/2017 4:00 AM CDT PREALBUMIN LEVEL Routine 11/26/2017 4:00 AM CDT PHOSPHORUS LEVEL Routine 11/26/2017 4:00 AM CDT MAGNESIUM LEVEL Routine 11/26/2017 4:00 AM CDT COMPREHENSIVE METABOLIC Routine 11/26/2017 4:00 AM CDT Results for this PANEL procedure are in the results section. B NATRIURETIC PEPTIDE Routine 11/26/2017 4:00 AM CDT HC COMPLETE BLD COUNT Routine 11/26/2017 4:00 AM CDT Results for this W/AUTO DIFF procedure are in the results section. POC GLUCOSE Routine 11/25/2017 9:48 PM CDT SURGICAL PATHOLOGY REQUEST Routine 11/25/2017 6:38 PM CDT AFB STAIN Routine 11/25/2017 2:53 PM CDT FUNGUS SMEAR Routine 11/25/2017 2:53 PM CDT AFB CULTURE Routine 11/25/2017 2:53 PM CDT GRAM STAIN Routine 11/25/2017 2:53 PM CDT FUNGUS CULTURE Routine 11/25/2017 2:53 PM CDT ANAEROBIC CULTURE Routine 11/25/2017 2:53 PM CDT AEROBIC CULTURE Routine 11/25/2017 2:53 PM CDT AFB STAIN Routine 11/25/2017 2:52 PM CDT FUNGUS SMEAR Routine 11/25/2017 2:52 PM CDT GRAM STAIN Routine 11/25/2017 2:52 PM CDT FUNGUS CULTURE Routine 11/25/2017 2:52 PM CDT AFB CULTURE Routine 11/25/2017 2:52 PM CDT AEROBIC CULTURE Routine 11/25/2017 2:52 PM CDT ANAEROBIC CULTURE Routine 11/25/2017 2:52 PM CDT DEBRIDEMENT, LOWER 11/25/2017 12:30 PM CDT Scar EXTREMITY Case Notes TF, EST 90 MIN Special Needs TF, EST 90 MIN POC PANEL 4 Routine 11/25/2017 12:24 PM CDT after 02/06/2017 Results Transfuse RBC (01/18/2018 5:56 PM)Only the most recent of2 resultswithin the time period is included.CBC with platelet and differential (12/07/2017 4:00 AM) Only the most recent of9 resultswithin the time period is included. WBC 5.91 4.50 - 11.00 k/uL [facility] DEPARTMENT OF PATHOLOGY AND GENOMIC MEDICINE RBC 2.74 (L) 4.20 - 5.50 m/uL [facility] DEPARTMENT OF PATHOLOGY AND GENOMIC MEDICINE HGB 8.4 (L) 12.0 - 16.0 g/dL [facility] DEPARTMENT OF PATHOLOGY AND GENOMIC MEDICINE HCT 26.4 (L) 37.0 - 47.0 % [facility] DEPARTMENT OF PATHOLOGY AND GENOMIC MEDICINE MCV 96.4 82.0 - 100.0 fL [facility] DEPARTMENT OF PATHOLOGY AND GENOMIC MEDICINE MCH 30.7 27.0 - 34.0 pg [facility] DEPARTMENT OF PATHOLOGY AND GENOMIC MEDICINE MCHC 31.8 31.0 - 37.0 g/dL [facility] DEPARTMENT OF PATHOLOGY AND GENOMIC MEDICINE RDW - SD 55.1 (H) 37.0 - 55.0 fL [facility] DEPARTMENT OF PATHOLOGY AND GENOMIC MEDICINE MPV 9.8 8.8 - 13.2 fL [facility] DEPARTMENT OF PATHOLOGY AND GENOMIC MEDICINE Platelet count 151 150 - 400 k/uL [facility] DEPARTMENT OF PATHOLOGY AND GENOMIC MEDICINE Nucleated RBC 0.50 /100 WBC [facility] DEPARTMENT OF PATHOLOGY AND GENOMIC MEDICINE Neutrophils 67.8 39.0 - 69.0 % [facility] DEPARTMENT OF PATHOLOGY AND GENOMIC MEDICINE Lymphocytes 16.2 (L) 25.0 - 45.0 % [facility] DEPARTMENT OF PATHOLOGY AND GENOMIC MEDICINE Monocytes 6.9 0.0 - 10.0 % [facility] DEPARTMENT OF PATHOLOGY AND GENOMIC MEDICINE Eosinophils 8.0 (H) 0.0 - 5.0 % [facility] DEPARTMENT OF PATHOLOGY AND GENOMIC MEDICINE Basophils 0.8 0.0 - 1.0 % [facility] DEPARTMENT OF PATHOLOGY AND GENOMIC MEDICINE Immature granulocytes 0.3Comment: 0.0 - 1.0 % [facility] DEPARTMENT OF "Immature PATHOLOGY AND GENOMIC granulocytes" MEDICINE (promyelocytes, myelocytes, metamyelocytes) Specimen Blood Performing Organization Address City/State/Zipcode Phone Number [facility] DEPARTMENT OF PATHOLOGY AND [address] [place] [id number] GENOMIC MEDICINE Prepare RBC, 1 Units (12/06/2017 2:47 PM)Only the most recent of3 resultswithin the time period is included. Product name Red Blood Cells -1, [facility] DEPARTMENT OF Leukored PATHOLOGY AND GENOMIC MEDICINE Unit number [id number] [facility] DEPARTMENT OF PATHOLOGY AND GENOMIC MEDICINE Product code [id number] [facility] DEPARTMENT OF PATHOLOGY AND GENOMIC MEDICINE Dispense status Transfused [facility] DEPARTMENT OF PATHOLOGY AND GENOMIC MEDICINE Blood expiration date [id number] [facility] DEPARTMENT OF PATHOLOGY AND GENOMIC MEDICINE Blood type code 9500 [facility] DEPARTMENT OF PATHOLOGY AND GENOMIC MEDICINE Blood type O NEGATIVE [facility] DEPARTMENT OF PATHOLOGY AND GENOMIC MEDICINE Performing Organization Address City/State/[facility] Phone Number [facility] PATHOLOGY [address] [address] GENOMIC MEDICINE Type and screen (12/06/2017 2:47 PM)Only the most recent of2 resultswithin the time period is included. ABO grouping O [facility] DEPARTMENT OF PATHOLOGY AND GENOMIC MEDICINE Rh type NEG [facility] DEPARTMENT OF PATHOLOGY AND GENOMIC MEDICINE Antibody screen (gel) NEG [facility] DEPARTMENT OF PATHOLOGY AND GENOMIC [facility] Specimen Blood Performing Organization Address [facility] Phone Number [facility] DEPARTMENT OF PATHOLOGY AND [address] [place] [address] Hemoglobin & hematocrit (12/06/2017 10:02 AM)Only the most recent of2 resultswithin the time period is included. HGB 7.4 (L) 12.0 - 16.0 g/dL [facility] DEPARTMENT OF PATHOLOGY AND GENOMIC MEDICINE HCT 23.8 (L) 37.0 - 47.0 % [facility] DEPARTMENT OF PATHOLOGY AND GENOMIC MEDICINE Specimen Blood Performing Organization Address [facility] Phone Number [facility] DEPARTMENT OF PATHOLOGY AND [address] [place] [address] Estimated GFR (12/06/2017 3:16 AM)Only the most recent of13 resultswithin the time period is included. GFR Non Af Amer 27 (A) mL/min/1.73 m2 [facility] DEPARTMENT OF PATHOLOGY AND GENOMIC MEDICINE GFR Af Amer 33 (A) mL/min/1.73 m2 [facility] DEPARTMENT OF Comment: PATHOLOGY AND GENOMIC Chronic kidney disease: <60 mL/min/1.73m2 MEDICINE Kidney failure: <15 mL/min/1.73m2 The estimated GFR is calculated from the IDMS-traceable Modification of Diet in Renal Disease Equation. The accuracy of the calculation is poor when the creatinine is normal. Calculated values >90 mL/min/1.73m2 are not reported. This equation has not been validated in children (<18 years), women, the elderly (>70 years), or ethnic groups other than Caucasians and Americans. Specimen Plasma specimen Performing Organization Address City/[facility] Phone Number [facility] DEPARTMENT OF PATHOLOGY AND [address] [place] [address] Creatine kinase, total (CPK) (12/06/2017 3:16 AM)Only the most recent of2 resultswithin the time period is included. Creatine kinase 43 26 - 192 U/L [facility] DEPARTMENT OF PATHOLOGY AND GENOMIC MEDICINE Specimen Plasma specimen Performing Organization Address City/[facility] Phone Number [facility] DEPARTMENT OF PATHOLOGY AND [address] [place] [address] Basic metabolic panel (12/06/2017 3:16 AM)Only the most recent of12 resultswithin the time period is included. Sodium 140 135 - 148 mEq/L [facility] DEPARTMENT OF PATHOLOGY AND GENOMIC MEDICINE Potassium 5.0 3.5 - 5.0 mEq/L [facility] DEPARTMENT OF PATHOLOGY AND GENOMIC MEDICINE Chloride 105 98 - 112 mEq/L [facility] DEPARTMENT OF PATHOLOGY AND GENOMIC MEDICINE CO2 27 24 - 31 mEq/L [facility] DEPARTMENT OF PATHOLOGY AND GENOMIC MEDICINE Anion gap 8@ANIO 7 - 15 mEq/L [facility] DEPARTMENT OF PATHOLOGY AND GENOMIC MEDICINE BUN 41 (H) 8 - 23 mg/dL [facility] DEPARTMENT OF PATHOLOGY AND GENOMIC MEDICINE Creatinine 1.9 (H) 0.5 - 0.9 mg/dL [facility] DEPARTMENT OF PATHOLOGY AND GENOMIC MEDICINE Glucose 82 65 - 99 mg/dL [facility] DEPARTMENT OF PATHOLOGY AND GENOMIC MEDICINE Calcium 8.2 (L) 8.8 - 10.2 mg/dL [facility] DEPARTMENT OF PATHOLOGY AND [employer] MEDICINE Specimen Plasma specimen Performing Organization Address [facility] Phone Number [facility] DEPARTMENT OF PATHOLOGY AND [address] [place] [address] POC glucose (12/05/2017 12:29 AM)Only the most recent of4 resultswithin the time period is included. POC glucose 95 65 - 99 mg/dL [facility] DEPARTMENT OF PATHOLOGY Comment: AND GENOMIC MEDICINE [facility] Notified RN Meter ID: [id number] Social Insurance Analyst: Hesham Pereyra Performing Organization Address City/[facility] Centercode Phone Number [facility] DEPARTMENT OF PATHOLOGY AND [address] [place] [address] XR Knee 1 Or 2 Vw Left (12/02/2017 4:29 PM) Narrative Performed At EXAMINATION:XR KNEE 1 OR 2 VW LEFT [facility] CLINICAL HISTORY:Bead removal COMPARISON:11/29/2017 TECHNIQUE: 2views of the left knee obtained. IMPRESSION: Interval removal of the antibiotic impregnated beads since prior. No bead left behind. Postop drains and wound VAC. Previous existing fixation plate in the tibia, unchanged, as is the remainder the exam. Findings were discussed with Maggy 12/02/2017 4:34 PM who repeated the findings and verbalized understanding. [facility]-[id number] Procedure Note Interface, Radiology Results Incoming - 12/02/2017 4:38 PM CDT EXAMINATION: XR KNEE 1 OR 2 VW LEFT CLINICAL HISTORY: Bead removal COMPARISON: 11/29/2017 TECHNIQUE: 2 views of the left knee obtained. IMPRESSION: Interval removal of the antibiotic impregnated beads since prior. No bead left behind. Postop drains and wound VAC. Previous existing fixation plate in the tibia, unchanged, as is the remainder the exam. Findings were discussed with nurse Danii at 12/02/2017 4:34 PM who repeated the findings and verbalized understanding. [facility]-[id number] Performing Organization Address City/[facility]/Zipcode Phone Number [facility] [address] [place] [address] Sodium level, syringe (12/02/2017 1:57 PM) Sodium, syringe 135 135 - 148 mEq/L [facility] DEPARTMENT OF PATHOLOGY AND GENOMIC MEDICINE Specimen Blood Performing Organization Address [facility]ode Phone Number [facility] DEPARTMENT OF PATHOLOGY AND [address] [place] [address] Potassium, syringe (12/02/2017 1:57 PM) Potassium, syringe 5.2 (H) 3.5 - 5.0 mEq/L [facility] DEPARTMENT OF PATHOLOGY AND GENOMIC MEDICINE Specimen Blood Performing Organization Address [facility]comt Phone Number [facility] DEPARTMENT OF PATHOLOGY AND [address] [place] [address] Lactic acid, syringe (12/02/2017 1:57 PM) Lactic acid, syringe 0.4 (L) 0.5 - 2.2 mmol/L [facility] DEPARTMENT OF PATHOLOGY AND GENOMIC MEDICINE Specimen Blood Performing Organization Address [facility] Cent[facility]ode Phone Number [facility] DEPARTMENT OF PATHOLOGY AND [address] [place] [address] Ionized calcium, arterial (12/02/2017 1:57 PM) Ionized calcium, arterial 1.13 1.11 - 1.32 mmol/L [facility] DEPARTMENT OF PATHOLOGY AND GENOMIC MEDICINE Specimen Blood Performing Organization Address [facility] Centercode Phone Number [facility] DEPARTMENT OF PATHOLOGY AND [address] [place] [address] Hemoglobin, syringe (12/02/2017 1:57 PM) Hemoglobin, syringe 9.5 (L) 12.0 - 16.0 g/dL [facility] DEPARTMENT OF PATHOLOGY AND GENOMIC MEDICINE Specimen Blood Performing Organization Address [facility] Phone Number [facility] DEPARTMENT PATHOLOGY AND [address] [place] [address] Glucose level, syringe (12/02/2017 1:57 PM) Glucose, syringe 98 65 - 99 mg/dL [facility] DEPARTMENT OF PATHOLOGY AND GENOMIC MEDICINE Specimen Blood Performing Organization Address [facility] Phone Number [facility] DEPARTMENT OF PATHOLOGY AND [address] [place] [address] Arterial blood gas, corrected (12/02/2017 1:57 PM) pH, arterial 7.34 (L) 7.35 - 7.45 [facility] DEPARTMENT OF PATHOLOGY AND GENOMIC MEDICINE pCO2, arterial 41 35 - 45 mmHg [facility] DEPARTMENT OF PATHOLOGY AND GENOMIC MEDICINE pO2, arterial 289 (H) 80 - 90 mmHg [facility] DEPARTMENT OF PATHOLOGY AND GENOMIC MEDICINE Temperature, Celsius 36.5 Degrees C [facility] DEPARTMENT OF PATHOLOGY AND GENOMIC MEDICINE O2 saturation, arterial 100 95 - 100 % [facility] DEPARTMENT OF PATHOLOGY AND GENOMIC MEDICINE pH, arterial corrected 7.35 [facility] DEPARTMENT OF PATHOLOGY AND GENOMIC MEDICINE pCO2, arterial corrected 40 mmHg [facility] DEPARTMENT OF PATHOLOGY AND GENOMIC MEDICINE pO2, arterial corrected 287 mmHg [facility] DEPARTMENT OF PATHOLOGY AND GENOMIC MEDICINE Base excess, arterial -3 (L) -2 - 2 mEq/L [facility] DEPARTMENT OF PATHOLOGY AND GENOMIC MEDICINE Specimen Blood Performing Organization Address [facility] Phone Number [facility] DEPARTMENT OF PATHOLOGY AND [address] [place] [address] Magnesium level (12/02/2017 1:57 PM)Only the most recent of2 resultswithin the time period is included. Magnesium 2.3 1.6 - 2.4 mg/dL [facility] DEPARTMENT OF PATHOLOGY AND GENOMIC MEDICINE Specimen Plasma specimen Performing Organization Address [facility] Phone Number [facility] DEPARTMENT PATHOLOGY AND [address] [place] [address] CT Head Wo Contrast (12/01/2017 2:23 PM) Narrative Performed At EXAMINATION: CT HEAD WO CONTRAST HM [facility] COMPARISON: None CLINICAL HISTORY Altered level of consciousness (LOC)unexplained. TECHNIQUE: Non-contrast CT scan of the head with thin-section contiguous transaxial images from the skull base to the vertex. CT scans are performed using radiation dose reduction techniques. Technical factors are evaluated and adjusted to ensure appropriate moderation of exposure. Automated dose management technology is applied to adjust radiation exposure while achieving a highly diagnostic quality image. FINDINGS: Nonenhanced emergency cranial CT was performed at approximately 1410 hours. The ventricles and subarachnoid spaces are mildly dilated. There are minimal white matter lucencies in the centrum semiovale. There is no acute hemorrhage or extra-axial lesion. Bone settings demonstrate the calvarium to be intact. IMPRESSION: Mild age-appropriate involutional changes. No focal acute intracranial abnormalities. [facility]-[id number] Procedure Note Hm Interface, Radiology Results Incoming - 12/01/2017 2:29 PM CDT EXAMINATION: CT HEAD WO CONTRAST COMPARISON: None CLINICAL HISTORY Altered level of consciousness (LOC) unexplained. TECHNIQUE: Non-contrast CT scan of the head with thin-section contiguous transaxial images from the skull base to the vertex. CT scans are performed using radiation dose reduction techniques. Technical factors are evaluated and adjusted to ensure appropriate moderation of exposure. Automated dose management technology is applied to adjust radiation exposure while achieving a highly diagnostic quality image. FINDINGS: Nonenhanced emergency cranial CT was performed at approximately 1410 hours. The ventricles and subarachnoid spaces are mildly dilated. There are minimal white matter lucencies in the centrum semiovale. There is no acute hemorrhage or extra-axial lesion. Bone settings demonstrate the calvarium to be intact. IMPRESSION: Mild age-appropriate involutional changes. No focal acute intracranial abnormalities. [facility]-[id number] Performing Organization Address City/[facility]/Zipcode Phone Number [facility] [address] [place] [address] Smear review (11/30/2017 4:48 AM) Platelet slide review Nesha slt decr [facility] DEPARTMENT OF PATHOLOGY AND GENOMIC MEDICINE Anisocytosis Moderate [facility] DEPARTMENT OF PATHOLOGY AND GENOMIC MEDICINE Polychromasia Moderate [facility] DEPARTMENT OF PATHOLOGY AND GENOMIC MEDICINE Ovalocytes Moderate [facility] DEPARTMENT OF PATHOLOGY AND GENOMIC MEDICINE Performing Organization Address City/[facility]ercode Phone Number [facility] DEPARTMENT OF PATHOLOGY AND [address] [place] [phone] GENOMIC MEDICINE Phosphorus level (11/30/2017 4:48 AM)Only the most recent of3 resultswithin the time period is included. Phosphorus 3.6 2.4 - 4.5 mg/dL [facility] DEPARTMENT OF PATHOLOGY AND GENOMIC MEDICINE Specimen Plasma specimen Performing Organization Address [facility]ercode Phone Number [facility] DEPARTMENT OF PATHOLOGY AND [address] [place] [address] GENOMIC MEDICINE XR Tibia Fibula 2 Vw Left (11/29/2017 4:56 PM) Narrative Performed At EXAMINATION:XR TIBIA FIBULA 2 VW LEFT [facility] CLINICAL HISTORY: Postoperative COMPARISON:None. FINDINGS: Plate and screw fixation of a proximal tibial fracture. There is a nondisplaced proximal fibular fracture. There are opaque pellets in the adjacent soft tissues. Alignment at the knee joint is satisfactory. IMPRESSION: As above [id number] Procedure Note Interface, Radiology Results Incoming - 11/29/2017 5:11 PM CDT EXAMINATION: XR TIBIA FIBULA 2 VW LEFT CLINICAL HISTORY: Postoperative COMPARISON: None. FINDINGS: Plate and screw fixation of a proximal tibial fracture. There is a nondisplaced proximal fibular fracture. There are opaque pellets in the adjacent soft tissues. Alignment at the knee joint is satisfactory. IMPRESSION: As above [id number] Performing Organization Address [facility] Centercode Phone Number [facility] [address] [place] [address] XR Chest 1 Vw Portable (11/29/2017 4:48 PM) Narrative Performed At EXAMINATION:XR CHEST 1 VW PORTABLE [facility] CLINICAL HISTORY:check placement of tunneled catheter COMPARISON:None IMPRESSION: 1.Dialysis catheter tip is at the junction of the superior vena cava and right atrium. There is no pneumothorax. 2.There is some scarring and volume loss at the lung apices. 3.Heart size is at the upper limits normal. [id number] Procedure Note Interface, Radiology Results Incoming - 11/29/2017 5:12 PM CDT EXAMINATION: XR CHEST 1 VW PORTABLE CLINICAL HISTORY: check placement of tunneled catheter COMPARISON: None IMPRESSION: 1. Dialysis catheter tip is at the junction of the superior vena cava and right atrium. There is no pneumothorax. 2. There is some scarring and volume loss at the lung apices. 3. Heart size is at the upper limits normal. [id number] Performing Organization Address [facility] Centercode Phone Number [facility] [address] [place] [address] OR [place] < 1 Hour (11/29/2017 3:45 PM) Narrative Performed At EXAMINATION:OR [place] 1 HOUR [facility] C-arm fluoroscopy was requested in OR. LOCATION: [facility] 3 OR 14 PROCEDURE: C-Arm for ZARAGOZA INSERTION START TIME: 1515 END TIME: 1545 FLUORO TIME: 25 sec DOSE (mGy): 3.43 TECH(S): Ankit Traore IMPRESSION: Separate operative report will be issued by the physician performing the procedure. [id number] Procedure Note Hm Interface, Radiology Results Incoming - 11/29/2017 9:13 PM CDT EXAMINATION: OR [place] 1 HOUR C-arm fluoroscopy was requested in OR. LOCATION: [facility] OR 14 PROCEDURE: C-Arm for ZARAGOZA INSERTION START TIME: 1515 END TIME: 1545 FLUORO TIME: 25 sec DOSE (mGy): 3.43 TECH(S): Ankit Traore IMPRESSION: Separate operative report will be issued by the physician performing the procedure. [id number] Performing Organization Address [facility] Centercomt Phone Number [facility] [address] [place] [address] B natriuretic peptide (11/28/2017 5:00 PM)Only the most recent of2 resultswithin the time period is included. BNP 334 (H) 0 - 100 pg/mL [facility] DEPARTMENT OF PATHOLOGY AND GENOMIC MEDICINE Specimen Blood Performing Organization Address [facility] Phone Number [facility] DEPARTMENT OF PATHOLOGY AND [address] [place] [address] Prealbumin level (11/26/2017 4:00 AM) Prealbumin 14 (L) 16 - 32 mg/dL [facility] DEPARTMENT OF PATHOLOGY AND GENOMIC MEDICINE Specimen Serum Performing Organization Address [facility] Phone Number [facility] DEPARTMENT OF PATHOLOGY AND [address] [place] [address] [employer] MEDICINE Comprehensive metabolic panel (11/26/2017 4:00 AM) Sodium 134 (L) 135 - 148 mEq/L [facility] DEPARTMENT OF PATHOLOGY AND GENOMIC MEDICINE Potassium 5.8 (H) 3.5 - 5.0 mEq/L [facility] DEPARTMENT OF PATHOLOGY AND GENOMIC MEDICINE Chloride 98 98 - 112 mEq/L [facility] DEPARTMENT OF PATHOLOGY AND GENOMIC MEDICINE CO2 26 24 - 31 mEq/L [facility] DEPARTMENT OF PATHOLOGY AND GENOMIC MEDICINE Anion gap 10@ANIO 7 - 15 mEq/L [facility] DEPARTMENT OF PATHOLOGY AND GENOMIC MEDICINE BUN 64 (H) 8 - 23 mg/dL [facility] DEPARTMENT OF PATHOLOGY AND GENOMIC MEDICINE Creatinine 1.7 (H) 0.5 - 0.9 mg/dL [facility] DEPARTMENT OF PATHOLOGY AND GENOMIC MEDICINE Glucose 127 (H) 65 - 99 mg/dL [facility] DEPARTMENT OF PATHOLOGY AND GENOMIC MEDICINE Calcium 8.9 8.8 - 10.2 mg/dL [facility] DEPARTMENT OF PATHOLOGY AND GENOMIC MEDICINE Protein 5.6 (L) 6.3 - 8.3 g/dL [facility] DEPARTMENT OF Comment: PATHOLOGY AND GENOMIC 4.6-7.0 g/dL MEDICINE 1 week 4.4-7.6 g/dL 7 months-1year5.1-7.3 g/dL 1-2 years5.6-7.5 g/dL >3 years6.0-8.0 g/dL 18-150 6.3-8.3 g/dL Albumin 2.5 (L) 3.5 - 5.0 g/dL [facility] DEPARTMENT OF PATHOLOGY AND GENOMIC MEDICINE A/G ratio 0.8 0.7 - 3.8 [facility] DEPARTMENT OF PATHOLOGY AND GENOMIC MEDICINE Alkaline phosphatase 76 35 - 104 U/L [facility] DEPARTMENT OF PATHOLOGY AND GENOMIC MEDICINE AST 11 10 - 35 U/L [facility] DEPARTMENT OF PATHOLOGY AND GENOMIC MEDICINE ALT <5 (A) 5 - 50 U/L [facility] DEPARTMENT OF PATHOLOGY AND GENOMIC MEDICINE Total bilirubin <0.2 0.0 - 1.2 mg/dL [facility] DEPARTMENT OF PATHOLOGY AND GENOMIC MEDICINE Specimen Plasma specimen Performing Organization Address City/[facility]/Zipcode Phone Number [facility] DEPARTMENT OF PATHOLOGY AND [address] [place] [phone] GENOMIC MEDICINE Surgical pathology request (11/25/2017 6:38 PM) [facility] DEPARTMENT OF PATHOLOGY AND GENOMIC MEDICINE Surgical pathology report See link below for PDF [facility] DEPARTMENT OF Lab Report PATHOLOGY AND GENOMIC MEDICINE Result status This is Final Report to [facility] DEPARTMENT OF [id number] PATHOLOGY AND GENOMIC MEDICINE Performing Organization Address City/[facility]ercode Phone Number [facility] DEPARTMENT OF PATHOLOGY AND [address] [place] [phone] GENOMIC MEDICINE Fungus smear (11/25/2017 2:53 PM)Only the most recent of2 resultswithin the time period is included. Fungus smear No fungi observed. [facility] DEPARTMENT OF PATHOLOGY AND Comment: [employer] MEDICINE Specimen Information Specimen Source: Tissue Specimen Site: LEFT KNEE #2 Specimen Tissue Performing Organization Address City/[facility]/Zipcode Phone Number [facility] DEPARTMENT OF PATHOLOGY AND [address] [place] [phone] [facility] AFB culture (11/25/2017 2:53 PM)Only the most recent of2 resultswithin the time period is included. AFB culture isolate No growth after 6 weeks of incubation. [facility] DEPARTMENT OF PATHOLOGY Comment: AND [employer] [facility] Specimen Information Specimen Source: Tissue Specimen Site: LEFT KNEE #2 Specimen Tissue Performing Organization Address City/[facility]/Zipcode Phone Number [facility] DEPARTMENT OF PATHOLOGY AND [address] [place] [phone] [facility] Aerobic culture (11/25/2017 2:53 PM)Only the most recent of2 resultswithin the time period is included. Aerobic culture isolate Proteus mirabilis [facility] DEPARTMENT OF Occasional PATHOLOGY AND GENOMIC , susceptibility to follow MEDICINE This organism is NOT a carbapenemase producing organism. (A) Comment: Specimen Information Specimen Source: Tissue Specimen Site: LEFT KNEE #2 Specimen Tissue Organism Antibiotic Method Susceptibility Proteus mirabilis Amikacin DUSTIN <=4 mcg/mL: Susceptible Proteus mirabilis Amoxicillin/Clavulanate DUSTIN <=2/1 mcg/mL: Susceptible Proteus mirabilis Ampicillin/Sulbactam DUSTNI <=1/0.5 mcg/mL: Susceptible Proteus mirabilis Ampicillin DUSTIN <=2 mcg/mL: Susceptible Proteus mirabilis Aztreonam DUSTIN <=1 mcg/mL: Susceptible Proteus mirabilis Cefazolin DUSTIN 4 mcg/mL: Resistant Proteus mirabilis Cefoxitin DUSTIN <=4 mcg/mL: Susceptible Proteus mirabilis Ceftazidime DUSTIN <=0.5 mcg/mL: Susceptible Proteus mirabilis Ceftriaxone DUSTIN <=0.5 mcg/mL: Susceptible Proteus mirabilis Cefuroxime Sodium DUSTIN <=4 mcg/mL: Susceptible Proteus mirabilis Ciprofloxacin DUSTIN <=0.5 mcg/mL: Susceptible Proteus mirabilis Ertapenem DUSTIN <=0.125 mcg/mL: Susceptible Proteus mirabilis Gentamicin DUSTIN 2 mcg/mL: Susceptible Proteus mirabilis Levofloxacin DUSTIN <=1 mcg/mL: Susceptible Proteus mirabilis Minocycline DUSTIN mcg/mL: Resistant Proteus mirabilis Piperacillin/Tazobactam DUSTIN <=2/4 mcg/mL: Susceptible Proteus mirabilis Tetracycline DUSTIN >8 mcg/mL: Resistant Proteus mirabilis Tigecycline DUSTIN mcg/mL: Resistant Proteus mirabilis Tobramycin DUSTIN 2 mcg/mL: Susceptible Proteus mirabilis Trimethoprim/Sulfamethoxazole DUSTIN <=0.5/9.5 mcg/mL: Susceptible Proteus mirabilis Cefepime DUSTIN <=0.5 mcg/mL: Susceptible Performing Organization Address [facility] Phone Number [facility] DEPARTMENT OF PATHOLOGY AND [address] [place] [address] GENOMIC MEDICINE Gram stain (11/25/2017 2:53 PM)Only the most recent of2 resultswithin the time period is included. Gram stain isolate Rare WBC's [facility] DEPARTMENT OF PATHOLOGY No organisms seen AND GENOMIC MEDICINE Comment: Specimen Information Specimen Source: Tissue Specimen Site: LEFT KNEE #2 Specimen Tissue Performing Organization Address [facility] Phone Number [facility] DEPARTMENT OF PATHOLOGY AND [address] [place] [address] GENOMIC MEDICINE AFB stain (11/25/2017 2:53 PM)Only the most recent of2 resultswithin the time period is included. AFB stain No acid fast bacilli (AFB) seen. [facility] DEPARTMENT OF PATHOLOGY AND Comment: GENOMIC MEDICINE Specimen Information Specimen Source: Tissue Specimen Site: LEFT KNEE #2 Specimen Tissue Performing Organization Address [facility] Phone Number [facility] DEPARTMENT OF PATHOLOGY AND [address] [place] [address] GENOMIC MEDICINE Fungus culture (11/25/2017 2:53 PM)Only the most recent of2 resultswithin the time period is included. Fungus culture isolate No growth after 4 weeks of incubation. [facility] DEPARTMENT OF Comment: PATHOLOGY AND GENOMIC Specimen Information MEDICINE Specimen Source: Tissue Specimen Site: LEFT KNEE #2 Specimen Tissue Performing Organization Address City/[facility] Phone Number [facility] DEPARTMENT OF PATHOLOGY AND [address] [place] [address] GENOMIC MEDICINE Anaerobic culture (11/25/2017 2:53 PM)Only the most recent of2 resultswithin the time period is included. Anaerobic culture Bacteroides fragilis [facility] DEPARTMENT OF isolate , beta lactamase positive PATHOLOGY AND GENOMIC (A) MEDICINE Comment: Specimen Information Specimen Source: Tissue Specimen Site: LEFT KNEE #2 Specimen Tissue Performing Organization Address City/[facility]/Zipcode Phone Number [facility] DEPARTMENT OF PATHOLOGY AND [address] [place] [phone] GENOMIC MEDICINE POC panel 4 (11/25/2017 12:24 PM) POC sodium 135 135 - 148 mmol/L [facility] DEPARTMENT OF PATHOLOGY AND GENOMIC MEDICINE POC potassium 6.5 (HH) 3.5 - 5.0 mmol/L [facility] DEPARTMENT OF PATHOLOGY AND GENOMIC MEDICINE POC hematocrit 29 (L) 37 - 47 % [facility] DEPARTMENT OF PATHOLOGY Comment: AND GENOMIC MEDICINE Meter ID: [id number] Social Insurance Analyst: Jackson Gao POC glucose 63 (L) 65 - 99 mg/dL [facility] DEPARTMENT OF PATHOLOGY AND GENOMIC MEDICINE Performing Organization Address City/[facility]ode Phone Number [facility] DEPARTMENT OF PATHOLOGY AND [address] [place] [phone] GENOMIC MEDICINE after 02/06/2017 Insurance Payer Benefit Plan / Group Subscriber ID Type Phone Address MEDICARE MEDICARE PART A AND B xxxxxxxxxx Medicare [place], [place] MEDICAID MEDICAID xxxxxxxxx Medicaid Home: [id number] [phone] [address]
--- OUTSIDE RECORDS SUMMARY | 2018-02-07 09:56 | XMS REPORT | Clinical Summary ---
:1955 Author Organization [facility] Address [address] [place] [address] Phone Care Team Providers Name Role Phone Unavailable Primary Care Provider Unavailable Allergies Active Allergy Reactions Severity Noted Date Comments Clindamycin Hives, Itching 01/10/2016 Current Medications Prescription Sig. Disp. Refills Start Date End Date Status ALBUTEROL SULFATE Inhale 2 puffs by mouth Active (PROAIR HFA INHL) via inhaler 4 (four) times daily. cycloSPORINE Place 1 drop into both Active (RESTASIS) 0.05 % eyes daily. ophthalmic emulsion esomeprazole (NEXIUM) Take 40 mg by mouth Active 40 MG capsule daily. fluticasone (FLOVENT Inhale 1 puff by mouth Active DISKUS) 50 via inhaler daily. mcg/actuation diskus inhaler FORMOTEROL FUMARATE Inhale 20 mcg by mouth Active (PERFOROMIST INHL) via inhaler 2 (two) times daily. TIOTROPIUM BROMIDE Inhale 1 puff by mouth Active (SPIRIVA RESPIMAT via inhaler daily. INHL) heparin injection Inject 1 mL (5,000 1 mL 0 01/21/2016 Active 5,000 units/mL Units total) subcutaneously every 12 (twelve) hours. labetalol Inject 4 mLs (20 mg 20 mL 0 01/21/2016 Active (NORMODYNE,TRANDATE) total) intravenously 5 mg/mL injection every 4 (four) hours as needed (SBP>180). Active Problems Problem Noted Date Proteinuria 01/17/2016 [...] Not on file Results Not on fileafter 02/06/2017
[2018-02-07 11:15] LABS: Protime INR 0.88
[2018-02-07 11:25] LABS: ALT/SGPT 8 U/L (12-78); AST/SGOT 15 U/L (15-37); Albumin 3.3 g/dL (3.4-5.0); Alkaline Phosphatase 89 U/L (45-117); BUN Blood Urea Nitrogen 84 mg/dL (7-18); Bicarbonate 26 mmol/L (21-32); Bilirubin Direct 0.1 mg/dL (0-0.2); Bilirubin Total 0.3 mg/dL (0.2-1.0); Glucose Level 94 mg/dL (74-106); Magnesium 2.1 mg/dL (1.8-2.4); NT PRO-BNP 1827 pg/mL (<125); Potassium 4.3 mmol/L (3.5-5.1); Protein, Total 6.9 g/dL (6.4-8.2); Sodium Level 140 mmol/L (136-145); Troponin (Emerg Dept Use Only) < 0.02 ng/mL (0.0-0.045)
--- NOTE | 2018-02-07 11:32 | RAD REPORT ---
EXAM DESCRIPTION: Nivia Single View02/07/2018 11:03 am CLINICAL HISTORY: Hypertension and anemia COMPARISON: October 2017 FINDINGS: The lungs appear clear of acute infiltrate. The heart is mildly enlarged
[2018-02-07 12:19] LABS: Absolute Monocytes 0.3 K/uL (0.1-1.3); Absolute Neutrophil 3.5 K/uL (1.8-8.0); Basophils % 1.5 % (0-1.3); Eosinophils % 14.2 % (0-4.4); Hematocrit 22.3 % (36.0-45.0); Lymphocytes % 17.7 % (15.3-44.8); MCH 31.2 pg (27.0-35.0); MCV 90.5 fL (80-100); MPV 7.8 fL (7.6-11.3); Monocytes % 5.6 % (3.3-12.3); RBC Red Blood Cell Count 2.47 M/uL (3.86-4.86)
--- NOTE | 2018-02-07 12:51 | ER ---
Nurse's Notes [facility] Name: Sima Asher Age: 62 yrs Sex: Female : 1955 Arrival Date: 02/07/2018 Time: 09:40 Bed 18 Private MD: Errol Menchaca Diagnosis: Anemia in chronic diseases classified elsewhere Presentation: 02/07 09:42 Presenting complaint: Patient states: Had routine bloodwork done this morning, sent for hb HGB 6.9, HCT 20.2. Transition of care: patient was not received from another setting of care. Onset of symptoms was February 07, 2018. Risk Assessment: Do you want to hurt yourself or someone else? Patient reports no desire to harm self or others. Initial Sepsis Screen: Does the patient meet any 2 criteria? No. Patient's initial sepsis screen is negative. Does the patient have a suspected source of infection? No. Patient's initial sepsis screen is negative. Care prior to arrival: None. 09:42 Method Of Arrival: Wheelchair hb 09:42 Acuity: SUNDAY 3 hb Historical: - Allergies: 09:45 Bactrim; hb 09:45 Clindamycin; hb 09:45 Cozaar; hb 09:45 Losartan; hb - Home Meds: 09:45 aspirin 81 mg Oral chew 1 tab once daily [Active]; cetirizine 10 mg Oral tab [Active]; hb fluticasone 50 mcg/actuation nasal spsn 1 spray once daily [Active]; gabapentin 100 mg Oral cap [Active]; hydralazine 100 mg Oral tab 3 times per day [Active]; iron Oral [Active]; isosorbide dinitrate 30 mg Oral tab [Active]; magnesium oxide 400 mg Oral cap [Active]; mirtazapine 15 mg Oral TbDL [Active]; Nexium 40 mg Oral cpDR 1 cap once daily [Active]; ProAir HFA 90 mcg/actuation inhalation HFAA 2 puffs every 6 hours [Active]; tramadol 50 mg Oral tab [Active]; trazodone 100 mg Oral tab 2 tabs [Active]; - PMHx: 09:45 Hypertension; hb 09:50 COPD; CKD; Depression; hb 09:50 Anemia; hb - Immunization history:: Adult Immunizations up to date. - Social history:: Smoking status: Patient/guardian denies using tobacco. - Ebola Screening: : No symptoms or risks identified at this time. Screenin:02 Abuse screen: Denies threats or abuse. Denies injuries from another. Nutritional ch screening: No deficits noted. Tuberculosis screening: No symptoms or risk factors identified. Fall Risk None identified. Assessment: 10:02 General: Appears in no apparent distress. comfortable, Behavior is calm, cooperative, ch appropriate for age. Pain: Denies pain. Neuro: No deficits noted. Level of Consciousness is awake, alert, obeys commands, Oriented to person, place, time, situation, Simplex Operator are equal bilaterally. Respiratory: Airway is patent Respiratory effort is even, unlabored, Breath sounds are coarse bilaterally. GI: No signs and/or symptoms were reported involving the gastrointestinal system. Patient currently denies bloody stool, nausea, pain, rectal bleeding, vomiting. : No signs and/or symptoms were reported regarding the genitourinary system. Derm: Skin is pink, warm \\T\\ dry. Wound noted left leg Wound is pt has healing post surgical wound to L knee. wound is "slow healing" per pt, does not appear infected. pt has bruising to mid R [place], dark purple and green, mild. pt states that has been there since her surgery and is improving. Musculoskeletal: Capillary refill < 3 seconds, in bilateral fingers. toes. Range of motion: limited in left knee and right knee pt has pain with movement of guerline knees. pt has slight swelling of L foot. pt states that is from her physicial therapy. 10:59 Reassessment: Patient appears in no apparent distress at this time. Patient and/or family updated on plan of care and expected duration. Pain level reassessed. 11:39 Reassessment: Patient appears in no apparent distress at this time. pt refuses tele ch monitoring and take it off herself. states she doesn't like the stickers they irritate her skin. Lab contacted for blood re collect. 12:16 Reassessment: Patient appears in no apparent distress at this time. No changes from previously documented assessment. Patient and/or family updated on plan of care and expected duration. Pain level reassessed. Patient is alert, oriented x 3, equal unlabored respirations, skin warm/dry/pink. 12:44 Reassessment: Patient appears in no apparent distress at this time. No changes from previously documented assessment. Patient and/or family updated on plan of care and expected duration. Pain level reassessed. Patient is alert, oriented x 3, equal unlabored respirations, skin warm/dry/pink. 12:55 Reassessment: Patient appears in no apparent distress at this time. I contact gianna Ohara report given, and she states she is sending transport over to pickling grader the pt. no s/s of distress, pt [id number]. awaiting transport home now. 13:25 Reassessment: Patient appears in no apparent distress at this time. Patient and/or ch family updated on plan of care and expected duration. Pain level reassessed. Patient is alert, oriented x 3, equal unlabored respirations, skin warm/dry/pink. [facility] HERE, PT DISCHARGED. Vital Signs: 09:44 BP 169 / 68; Pulse 64; Resp 16; Temp 97.9; Pulse Ox 100% on 2 lpm NC; Pain 0/10; hb 10:59 BP 170 / 92; Pulse 65; Resp 14; Temp 98.8; Pulse Ox 96% on 2 lpm NC; Pain 0/10; ch 12:16 BP 177 / 70; Pulse 64; Resp 20; Pulse Ox 98% on 2 lpm NC; Pain 0/10; ch 12:44 BP 158 / 68; Pulse 62; Resp 18; Pulse Ox 99% on 2 lpm NC; Pain 0/10; ch 12:56 BP 150 / 72; Pulse 64; Resp 18; Pulse Ox 99% on 2 lpm NC; Pain 0/10; ch 13:25 BP 148 / 86; Pulse 60; Resp 18; Temp 98.8; Pulse Ox 99% on 2 lpm NC; Pain 0/10; ch ED Course: 09:40 Patient arrived in ED. mr 09:41 Errol Menchaca MD is Private Physician. mr 09:44 Triage completed. hb 09:44 Arm band placed on right wrist. hb 09:54 Kim Werner, SERENA is Primary Nurse. ch 10:02 No apparent distress. Resting quietly. ch 10:02 Patient has correct armband on for positive identification. Bed in low position. Call light in reach. Side rails up X 1. Adult w/ patient. Pulse ox on. NIBP on. Warm blanket given. 10:14 Jai Vick PA is PHCP. cp 10:14 Jose Muir MD is Attending Physician. cp 10:20 Missed attempt(s): 22 gauge in right forearm. x2. Bleeding controlled, band aid ch applied, catheter tip intact. 10:54 EKG done, by optical lens manufacturing tech. reviewed by Jai CASTLE. at1 10:59 ct technologist on. ch 10:59 Inserted saline lock: 22 gauge in left antecubital area, using aseptic technique. Blood ch collected. started by julius cintron 11:01 X-ray completed. Patient tolerated procedure well. 11:03 XRAY Chest (1 view) In Process Unspecified. EDMS 12:16 No provider procedures requiring assistance completed. ch 13:25 IV discontinued, intact, bleeding controlled, No redness/swelling at site. Pressure ch dressing applied. Administered Medications: No medications were administered Outcome: 12:50 Discharge ordered by . cp 13:25 Discharged to home via wheelchair, TO [facility] 13:25 Condition: stable 13:25 Discharge instructions given to patient, REPORT CALLED TO [facility] Instructed on discharge instructions, follow up and referral plans. Demonstrated understanding of instructions, follow-up care. 13:28 Patient left the ED. Signatures: Dispatcher [employer] EDMS Kim Werner, RN Geovanna Clinton ch mr Ji, [place], museum or zoo director EKG Tat1 Jewell Euceda Jai Vick PA PA cp Baxter, Heather, RN RN hb
--- NOTE | 2018-02-07 12:51 | EDPHYS ---
Physician Documentation [facility] Name: Sima Asher Age: 62 yrs Sex: Female : 1955 Arrival Date: 02/07/2018 Time: 09:40 Bed 18 Private MD: Errol Menchaca ED Physician Jose Muir HPI: 02/07 10:30 This 62 yrs old Female presents to ER via Wheelchair with complaints of cp Abnormal Lab Results. 10:30 Patient presents to ED reporting recent blood work results showing H/H of 6.9/20.2. cp Patient reports history of chronic anemia. Denies bloody or black stools. Historical: - Allergies: 09:45 Bactrim; hb 09:45 Clindamycin; hb 09:45 Cozaar; hb 09:45 Losartan; hb - Home Meds: 09:45 aspirin 81 mg Oral chew 1 tab once daily [Active]; cetirizine 10 mg Oral tab [Active]; hb fluticasone 50 mcg/actuation nasal spsn 1 spray once daily [Active]; gabapentin 100 mg Oral cap [Active]; hydralazine 100 mg Oral tab 3 times per day [Active]; iron Oral [Active]; isosorbide dinitrate 30 mg Oral tab [Active]; magnesium oxide 400 mg Oral cap [Active]; mirtazapine 15 mg Oral TbDL [Active]; Nexium 40 mg Oral cpDR 1 cap once daily [Active]; ProAir HFA 90 mcg/actuation inhalation HFAA 2 puffs every 6 hours [Active]; tramadol 50 mg Oral tab [Active]; trazodone 100 mg Oral tab 2 tabs [Active]; - PMHx: 09:45 Hypertension; hb 09:50 COPD; CKD; Depression; hb 09:50 Anemia; hb - Immunization history:: Adult Immunizations up to date. - Social history:: Smoking status: Patient/guardian denies using tobacco. - Ebola Screening: : No symptoms or risks identified at this time. ROS: 10:35 Constitutional: Negative for body aches, chills, fever, poor PO intake. cp 10:35 Eyes: Negative for injury, pain, redness, and discharge. cp 10:35 ENT: Negative for drainage from ear(s), ear pain, sore throat, difficulty swallowing, difficulty handling secretions. 10:35 Cardiovascular: Negative for chest pain, edema, palpitations. 10:35 Respiratory: Negative for cough, shortness of breath, wheezing. 10:35 Abdomen/GI: Negative for abdominal pain, nausea, vomiting, and diarrhea, constipation, anorexia, black/tarry stool, rectal bleeding. 10:35 Back: Negative for pain at rest, pain with movement. 10:35 : Negative for urinary symptoms, vaginal bleeding, vaginal discharge. 10:35 Skin: Negative for cellulitis, rash. 10:35 Neuro: Negative for altered mental status, dizziness, headache, syncope, near syncope, weakness. 10:35 All other systems are negative. Exam: 10:45 Head/Face: Normocephalic, atraumatic. cp 10:45 Constitutional: The patient appears in no acute distress, alert, awake, non-diaphoretic, non-toxic, well developed, well nourished. 10:45 Eyes: Periorbital structures: appear normal, Conjunctiva: normal, no exudate, no injection, Sclera: no appreciated abnormality, Lids and lashes: appear normal, bilaterally. 10:45 ENT: External ear(s): are unremarkable, Nose: is normal, Mouth: Lips: moist, Oral mucosa: pink and intact, moist, Posterior pharynx: is normal, airway is patent, no erythema, no exudate. 10:45 Neck: ROM/movement: is normal, is supple, without pain, no range of motions limitations, no nuchal rigidity. 10:45 Chest/axilla: Inspection: normal, Palpation: is normal, no crepitus, no tenderness. 10:45 Cardiovascular: Rate: normal, Rhythm: regular. 10:45 Respiratory: the patient does not display signs of respiratory distress, Respirations: normal, no use of accessory muscles, no retractions, no splinting, no tachypnea, labored breathing, is not present, Breath sounds: are clear throughout, no decreased breath sounds, no stridor, no wheezing. 10:45 Abdomen/GI: Inspection: abdomen appears normal, Bowel sounds: active, all quadrants, Palpation: abdomen is soft and non-tender, in all quadrants, rebound tenderness, is not appreciated. 10:45 Skin: cellulitis, is not appreciated, no rash present. cp 10:45 Neuro: Orientation: to person, place \T\ time. Mentation: lucid, able to follow commands, Cerebellar function: is grossly normal, Motor: no acute changes, Sensation: no obvious gross deficits. Vital Signs: 09:44 BP 169 / 68; Pulse 64; Resp 16; Temp 97.9; Pulse Ox 100% on 2 lpm NC; Pain 0/10; hb 10:59 BP 170 / 92; Pulse 65; Resp 14; Temp 98.8; Pulse Ox 96% on 2 lpm NC; Pain 0/10; ch 12:16 BP 177 / 70; Pulse 64; Resp 20; Pulse Ox 98% on 2 lpm NC; Pain 0/10; ch 12:44 BP 158 / 68; Pulse 62; Resp 18; Pulse Ox 99% on 2 lpm NC; Pain 0/10; ch 12:56 BP 150 / 72; Pulse 64; Resp 18; Pulse Ox 99% on 2 lpm NC; Pain 0/10; ch 13:25 BP 148 / 86; Pulse 60; Resp 18; Temp 98.8; Pulse Ox 99% on 2 lpm NC; Pain 0/10; ch MDM: 10:15 Patient medically screened. cp 11:15 Differential diagnosis: chronic anemia, GI bleed, kidney disease. 12:30 Data reviewed: vital signs, nurses notes, lab test result(s), radiologic studies, plain cp films. 12:30 Test interpretation: by ED physician or midlevel provider: ECG, plain radiologic cp studies. 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 12:50 ED course: VSS. Discussed results of H/H that returned 7.7/22.3. Will discharge back to long-term care facility for continued monitoring. 02/07 10:30 Order name: Basic Metabolic Panel; Complete Time: 12:05 02/07 12:05 Interpretation: Normal except: BUN 84; CRE 2.00; GFR 25. 02/07 10:30 Order name: CBC with Diff; Complete Time: 12:23 02/07 12:51 Interpretation: Normal except: RBC 2.47; HGB 7.7; HCT 22.3; EOSINOPHIL % 14.2; BASO% cp 1.5; EOSA 0.8. 02/07 10:30 Order name: LFT's; Complete Time: 12:05 cp 02/07 12:06 Interpretation: Normal except: ALT 8; ALB 3.3; GLOB 3.6; A/G 0.9. 02/07 10:30 Order name: Magnesium; Complete Time: 12: cp 02/07 10:30 Order name: NT PRO-BNP; Complete Time: 12: cp 02/07 12:06 Interpretation: Abnormal: NT PRO-BNP 1827. 02/07 10:30 Order name: PT-INR; Complete Time: 12: cp 02/07 10:30 Order name: Troponin (emerg Dept Use Only); Complete Time: 12:05 02/07 12:06 Interpretation: TROPED < 0.02; Reviewed. 02/07 10:30 Order name: XRAY Chest (1 view); Complete Time: 12:05 02/07 10:30 Order name: EKG; Complete Time: 10:31 cp 02/07 10:30 Order name: Cardiac monitoring; Complete Time: 10:59 cp 02/07 10:30 Order name: EKG - Nurse/Tech; Complete Time: 10:59 cp 02/07 10:30 Order name: IV Saline Lock; Complete Time: 10:59 cp 02/07 10:30 Order name: Labs collected and sent; Complete Time: 10:59 02/07 10:30 Order name: Type And Screen 02/07 10:30 Order name: O2 Per Protocol; Complete Time: 10:59 cp 02/07 10:30 Order name: O2 Sat Monitoring; Complete Time: 10:59 02/07 11:12 Order name: Labs - recollect needed; Complete Time: 11:41 bd Administered Medications: No medications were administered Disposition: 02/07/18 12:50 Discharged to Home. Impression: Anemia in chronic diseases classified elsewhere. - Condition is Stable. - Discharge Instructions: Anemia, Nonspecific. - Medication Reconciliation Form, Thank You Letter, Antibiotic Education, Prescription Opioid Use form. - Follow up: Private Physician; When: 1 - 2 days; Reason: Recheck today's complaints. - Problem is chronic. - Symptoms are unchanged. Addendum: 02/11/2018 16:32 Co-signature as Attending Physician, Jose Muir MD. g s Signatures: Dispatcher [employer] EDLisa Sprague Christina RN RN aJi Vick PA PA cp Ania Macedo RN RN hb Starr, Gregory, MD MD Corrections: (The following items were deleted from the chart) 02/07 12:51 12:24 Normal except: RBC 2.47; HGB 7.7; HCT 22.3; EOSINOPHIL % 14.2; BASO% 1.5. cp cp 13:28 12:50 02/07/2018 12:50 Discharged to Home. Impression: Anemia in chronic diseases ch classified elsewhere. Condition is Stable. Forms are Medication Reconciliation Form, Thank You Letter, Antibiotic Education, Prescription Opioid Use. Follow up: Private Physician; When: 1 - 2 days; Reason: Recheck today's complaints. Problem is chronic. Symptoms are unchanged. cp
[2018-02-07 13:43] VITALS: TEMP 98.8
[2018-02-07 13:46] VITALS: O2SAT 99
[2018-02-07 13:48] VITALS: BP 148/86
--- NOTE | 2018-02-07 15:27 | EKG ---
Test Date: 2018-02-07 Test Time: 10:44:34 Bookstore Manager: VIANEY MEASUREMENT RESULTS: Intervals: Rate: 61 ND: 180 QRSD: 90 QT: 428 QTc: 430 [place]: P: 73 ND: 180 QRS: 12 T: 63 INTERPRETIVE STATEMENTS: Normal sinus rhythm Minimal voltage criteria for LVH, may be normal variant Borderline ECG Compared to ECG 10/17/2017 13:00:01 Left ventricular hypertrophy now present Ventricular premature complex(es) no longer present Prolonged QT interval no longer present Electronically Signed On 02-07-18 15:25:26 CDT by Yeyo Galicia
== END 2018-02-07 13:28 | disposition home or self-care (01) ==
LOC: ER 09:38
DX: I12.9 Hypertensive chronic kidney disease with stage 1 through stage 4 chronic kidney disease, or unspecified chronic kidney disease (principal); D63.1 Anemia in chronic kidney disease; N18.9 Chronic kidney disease, unspecified; J44.9 Chronic obstructive pulmonary disease, unspecified; F32.9 Major depressive disorder, single episode, unspecified; Z79.82 Long term (current) use of aspirin; Z88.1 Allergy status to other antibiotic agents; Z88.3 Allergy status to other anti-infective agents; Z88.8 Allergy status to other drugs, medicaments and biological substances
CPT/HCPCS: 36415; 71045; 80048; 80076; 83735; 83880; 84484; 85025; 85610; 86850; 86900; 86901; 93005; 99284

== ENCOUNTER 2018-03-02 10:57 | Inpatient (IN) | payer OTHER ==
--- OUTSIDE RECORDS SUMMARY | 2018-03-02 11:00 | XMS REPORT | Clinical Summary ---
:1955 Author Organization [facility] Address [address] [place] [address] Care Team Providers Name Role Phone Asked, [...] Scar 11/25/2017 Infected hardware in left leg (HCC) 11/25/2017 Encounters Date Type Specialty Care Team Description 12/02/2017 Anesthesia Event Plastic Surgery Norm Whitehead CRNA 12/02/2017 Procedure Pass Plastic Surgery 12/02/2017 Surgery Plastic Surgery Anirudh Hart, CLOSURE KNEE WOUND USING GASTROCNEMIUS FLAP 11/29/2017 Anesthesia Event Plastic [...] W/ PLACEMENT ANTIBIOTIC BEADS x 15 after 03/01/2017 Social History Tobacco Use Types Packs/Day Years [...] INFLUENZA VACCINE 12/14/2017 Implants Implanted Type Area Associate Dean Of Women Device Expiration Model / Identifier Date Serial / Lot Cement Bone Full-Dose Premxd W/ Tobr Simplex P Pack 10/Ea - [id number] Surgical Left: MARYBEL 05/15/2019 [id number] / Implanted: Qty: 1 on 11/25/2017 by Anirudh Hart MD Bone Cement Knee ORTHOPEDICS / HIPS-KNEES [id number] Cement Bone Full-Dose Premxd W/ Tobr Simplex P Pack 10/Ea - [id number] Surgical Left: MARYBEL 02/12/2019 [id number] / Implanted: Qty: 1 on 11/29/2017 by Anirudh Hart MD Bone Cement Knee ORTHOPEDICS / HIPS-KNEES [id number] Drain Wnd 10fr Rnd Hbls W/ 1/8in Trocar Valeri Quinten Wht - [id number] Surgical N /A: N/A ETHICON DIV OF [id number] / Implanted: Qty: 1 on 12/02/2017 by Anirudh Hart MD Implants; VANCE & / Expanders; VANEC Extenders; Surgical Wires Procedures Procedure Name Priority [...] CDT procedure are in the results section. RI AN ELECTIVE Routine 12/02/2017 2:19 ENDOTRACHEAL AIRWAY PM CDT Procedure Note - Norm Whitehead CRNA - 12/02/2017 2:19 PM CDT Airway Date/Time: 12/02/2017 1:34 PM Performed by: NORM WHITEHEAD Authorized by: ZIGGY STOREY Location: OR Urgency: Elective Difficult Airway: No Performed by: resident/CHIEF OF PARTY/AA Preoxygenated with 100% O2: Yes C-spine Precautions [...] 1 HOUR Routine 11/29/2017 3:45 PM CDT RI AN ELECTIVE ENDOTRACHEAL Routine 11/29/2017 2:58 PM CDT AIRWAY Procedure Note - Richie Finnegan CRNA - 11/29/2017 2:58 PM CDT Airway Date/Time: 11/29/2017 2:53 PM Performed by: RICHIE FINNEGAN Authorized by: ALTAGRACIA FUNG Location: OR Urgency: Elective Difficult Airway: No Resident/CHIEF OF PARTY/AA: RICHIE FINNEGAN Performed by: resident/CHIEF OF PARTY/AA Preoxygenated with 100% O2: Yes C-spine Precautions [...] 4 Routine 11/25/2017 12:24 PM CDT after 03/01/2017 Results Transfuse RBC (01/18/2018 5:56 PM)Only the most recent of2 resultswithin the time period is included.CBC with platelet and differential (12/07/2017 4:00 AM) Only the most recent of9 resultswithin the time period is included. WBC 5.91 4.50 - 11.00 k/uL [facility] DEPARTMENT OF PATHOLOGY AND GENOMIC MEDICINE RBC 2.74 (L) 4.20 - 5.50 m/uL [facility] DEPARTMENT OF PATHOLOGY AND GENOMIC MEDICINE HGB 8.4 (L) 12.0 - 16.0 g/dL [facility] DEPARTMENT OF PATHOLOGY AND GENOMIC MEDICINE HCT 26.4 (L) 37.0 - 47.0 % [facility] DEPARTMENT OF PATHOLOGY AND GENOMIC MEDICINE MCV 96.4 82.0 - 100.0 fL [facility] DEPARTMENT OF PATHOLOGY AND GENOMIC MEDICINE MCH 30.7 27.0 - 34.0 pg [facility] DEPARTMENT OF PATHOLOGY AND GENOMIC MEDICINE MCHC 31.8 31.0 - 37.0 g/dL [facility] DEPARTMENT OF PATHOLOGY AND GENOMIC MEDICINE RDW - SD 55.1 (H) 37.0 - 55.0 fL [facility] DEPARTMENT OF PATHOLOGY AND GENOMIC MEDICINE MPV 9.8 8.8 - 13.2 fL [facility] DEPARTMENT OF PATHOLOGY AND GENOMIC MEDICINE Platelet count 151 150 - 400 k/uL [facility] DEPARTMENT OF PATHOLOGY AND GENOMIC MEDICINE Nucleated RBC 0.50 /100 WBC [facility] DEPARTMENT OF PATHOLOGY AND GENOMIC MEDICINE Neutrophils 67.8 39.0 - 69.0 % [facility] DEPARTMENT OF PATHOLOGY AND GENOMIC MEDICINE Lymphocytes 16.2 (L) 25.0 - 45.0 % [facility] DEPARTMENT OF PATHOLOGY AND GENOMIC MEDICINE Monocytes 6.9 0.0 - 10.0 % [facility] DEPARTMENT OF PATHOLOGY AND GENOMIC MEDICINE Eosinophils 8.0 (H) 0.0 - 5.0 % [facility] DEPARTMENT OF PATHOLOGY AND GENOMIC MEDICINE Basophils 0.8 0.0 - 1.0 % [facility] DEPARTMENT OF PATHOLOGY AND GENOMIC MEDICINE Immature granulocytes 0.3Comment: 0.0 - 1.0 % [facility] DEPARTMENT OF "Immature PATHOLOGY AND GENOMIC granulocytes" MEDICINE (promyelocytes, myelocytes, metamyelocytes) Specimen Blood Performing Organization Address City/[facility]/Zipcode Phone Number [facility] DEPARTMENT OF PATHOLOGY AND [address] [place] [phone] GENOMIC MEDICINE Prepare RBC, 1 Units (12/06/2017 2:47 PM)Only the most recent of3 resultswithin the time period is included. Product name Red Blood Cells -1, [facility] DEPARTMENT OF Leukored PATHOLOGY AND GENOMIC MEDICINE Unit number [id number] [facility] DEPARTMENT OF PATHOLOGY AND GENOMIC MEDICINE Product code [id number] [facility] DEPARTMENT OF PATHOLOGY AND GENOMIC MEDICINE Dispense status Transfused [facility] DEPARTMENT OF PATHOLOGY AND GENOMIC MEDICINE Blood expiration date [facility] DEPARTMENT OF PATHOLOGY AND GENOMIC MEDICINE Blood type code 9500 [facility] DEPARTMENT OF PATHOLOGY AND GENOMIC MEDICINE Blood type O NEGATIVE [facility] DEPARTMENT OF PATHOLOGY AND GENOMIC MEDICINE Performing Organization Address City/[facility]/Zipcode Phone Number [facility] DEPARTMENT PATHOLOGY AND [address] [place] [phone] GENOMIC MEDICINE Type and screen (12/06/2017 2:47 PM)Only the most recent of2 resultswithin the time period is included. ABO grouping O [facility] DEPARTMENT OF PATHOLOGY AND GENOMIC MEDICINE Rh type NEG [facility] DEPARTMENT OF PATHOLOGY AND GENOMIC MEDICINE Antibody screen (gel) NEG [facility] DEPARTMENT OF PATHOLOGY AND GENOMIC [facility] Specimen Blood Performing Organization Address City/[facility] Phone Number [facility] DEPARTMENT OF PATHOLOGY AND [address] [place] [address] Hemoglobin & hematocrit (12/06/2017 10:02 AM)Only the most recent of2 resultswithin the time period is included. HGB 7.4 (L) 12.0 - 16.0 g/dL [facility] DEPARTMENT OF PATHOLOGY AND GENOMIC MEDICINE HCT 23.8 (L) 37.0 - 47.0 % [facility] DEPARTMENT OF PATHOLOGY AND GENOMIC [facility] Specimen Blood Performing Organization Address [facility] Phone Number [facility] DEPARTMENT OF PATHOLOGY AND [address] [place] [address] Estimated GFR (12/06/2017 3:16 AM)Only the most recent of13 resultswithin the time period is included. GFR Non Af Amer 27 (A) mL/min/1.73 m2 [facility] DEPARTMENT OF PATHOLOGY AND GENOMIC MEDICINE GFR Af Amer 33 (A) mL/min/1.73 m2 [facility] DEPARTMENT OF Comment: PATHOLOGY AND GENOMIC Chronic [...] Americans. Specimen Plasma specimen Performing Organization Address City/[facility] Phone Number [facility] DEPARTMENT OF PATHOLOGY AND [address] [place] [address] Creatine kinase, total (CPK) (12/06/2017 3:16 AM)Only the most recent of2 resultswithin the time period is included. Creatine kinase 43 26 - 192 U/L [facility] DEPARTMENT OF PATHOLOGY AND DEQ MEDICINE Specimen Plasma specimen Performing Organization Address City/[facility]/Zipcode Phone Number [facility] DEPARTMENT OF PATHOLOGY AND [address] [place] [address] Basic metabolic panel (12/06/2017 3:16 AM)Only the most recent of12 resultswithin the time period is included. Sodium 140 135 - 148 mEq/L [facility] DEPARTMENT OF PATHOLOGY AND GENOMIC MEDICINE Potassium 5.0 3.5 - 5.0 mEq/L [facility] DEPARTMENT OF PATHOLOGY AND GENOMIC MEDICINE Chloride 105 98 - 112 mEq/L [facility] DEPARTMENT OF PATHOLOGY AND GENOMIC MEDICINE CO2 27 24 - 31 mEq/L [facility] DEPARTMENT OF PATHOLOGY AND GENOMIC MEDICINE Anion gap 8@ANIO 7 - 15 mEq/L [facility] DEPARTMENT OF PATHOLOGY AND GENOMIC MEDICINE BUN 41 (H) 8 - 23 mg/dL [facility] DEPARTMENT OF PATHOLOGY AND GENOMIC MEDICINE Creatinine 1.9 (H) 0.5 - 0.9 mg/dL [facility] DEPARTMENT OF PATHOLOGY AND GENOMIC MEDICINE Glucose 82 65 - 99 mg/dL [facility] DEPARTMENT OF PATHOLOGY AND GENOMIC MEDICINE Calcium 8.2 (L) 8.8 - 10.2 mg/dL [facility] DEPARTMENT OF PATHOLOGY AND GENOMIC MEDICINE Specimen Plasma specimen Performing Organization Address City/[facility] Phone Number [facility] DEPARTMENT OF PATHOLOGY AND [address] [place] [address] POC glucose (12/05/2017 12:29 AM)Only the most recent of4 resultswithin the time period is included. POC glucose 95 65 - 99 mg/dL [facility] DEPARTMENT OF PATHOLOGY Comment: AND GENOMIC MEDICINE [facility] Notified RN Meter ID: [id number] Network Systems Analyst: Hesham Rangel Ellen Performing Organization Address [facility] Phone Number [facility] DEPARTMENT OF PATHOLOGY AND [address] [place] [address] XR Knee 1 Or 2 Vw Left (12/02/2017 4:29 PM) Narrative Performed At EXAMINATION:XR KNEE 1 OR 2 VW LEFT [facility] CLINICAL HISTORY:Bead removal COMPARISON:11/29/2017 TECHNIQUE: 2views of the left knee obtained. IMPRESSION: Interval removal of the antibiotic impregnated beads since prior. No bead left behind. Postop drains and wound VAC. Previous existing fixation plate in the tibia, unchanged, as is the remainder the exam. Findings were discussed with Maggy 12/02/2017 4:34 PM who repeated the findings and verbalized understanding. [facility]-[id number] Procedure Note Hm Interface, Radiology Results Incoming - 12/02/2017 4:38 [...] who repeated the findings and verbalized understanding. [facility]-[id number] Performing Organization Address City/[facility]/Zipcode Phone Number [facility] [address] [place] [address] Sodium level, syringe (12/02/2017 1:57 PM) Sodium, syringe 135 135 - 148 mEq/L [facility] DEPARTMENT OF PATHOLOGY AND GENOMIC MEDICINE Specimen Blood Performing Organization Address [facility] Phone Number [facility] DEPARTMENT OF PATHOLOGY AND [address] [place] [address] Potassium, syringe (12/02/2017 1:57 PM) Potassium, syringe 5.2 (H) 3.5 - 5.0 mEq/L [facility] DEPARTMENT OF PATHOLOGY AND GENOMIC MEDICINE Specimen Blood Performing Organization Address [facility] Phone Number [facility] DEPARTMENT OF PATHOLOGY AND [address] [place] [address] Lactic acid, syringe (12/02/2017 1:57 PM) Lactic acid, syringe 0.4 (L) 0.5 - 2.2 mmol/L [facility] DEPARTMENT OF PATHOLOGY AND GENOMIC MEDICINE Specimen Blood Performing Organization Address [facility] Phone Number [facility] DEPARTMENT OF PATHOLOGY AND [address] [place] [address] Ionized calcium, arterial (12/02/2017 1:57 PM) Ionized calcium, arterial 1.13 1.11 - 1.32 mmol/L [facility] DEPARTMENT OF PATHOLOGY AND GENOMIC MEDICINE Specimen Blood Performing Organization Address [facility] Phone Number [facility] DEPARTMENT OF PATHOLOGY AND [address] [place] [address] Hemoglobin, syringe (12/02/2017 1:57 PM) Hemoglobin, syringe 9.5 (L) 12.0 - 16.0 g/dL [facility] DEPARTMENT OF PATHOLOGY AND GENOMIC MEDICINE Specimen Blood Performing Organization Address [facility] Phone Number [facility] DEPARTMENT OF PATHOLOGY AND [address] [place] [address] Glucose level, syringe (12/02/2017 1:57 PM) Glucose, syringe 98 65 - 99 mg/dL [facility] DEPARTMENT OF PATHOLOGY AND GENOMIC MEDICINE Specimen Blood Performing Organization Address [facility] Phone Number [facility] DEPARTMENT OF PATHOLOGY AND [address] [place] [address] Arterial blood gas, corrected (12/02/2017 1:57 PM) pH, arterial 7.34 (L) 7.35 - 7.45 [facility] DEPARTMENT OF PATHOLOGY AND GENOMIC MEDICINE pCO2, arterial 41 35 - 45 mmHg [facility] DEPARTMENT OF PATHOLOGY AND GENOMIC MEDICINE pO2, arterial 289 (H) 80 - 90 mmHg [facility] DEPARTMENT OF PATHOLOGY AND GENOMIC MEDICINE Temperature, Celsius 36.5 Degrees C [facility] DEPARTMENT OF PATHOLOGY AND GENOMIC MEDICINE O2 saturation, arterial 100 95 - 100 % [facility] DEPARTMENT OF PATHOLOGY AND GENOMIC MEDICINE pH, arterial corrected 7.35 [facility] DEPARTMENT OF PATHOLOGY AND GENOMIC MEDICINE pCO2, arterial corrected 40 mmHg [facility] DEPARTMENT OF PATHOLOGY AND GENOMIC MEDICINE pO2, arterial corrected 287 mmHg [facility] DEPARTMENT OF PATHOLOGY AND GENOMIC MEDICINE Base excess, arterial -3 (L) -2 - 2 mEq/L [facility] DEPARTMENT OF PATHOLOGY AND GENOMIC MEDICINE Specimen Blood Performing Organization Address [facility] Phone Number [facility] DEPARTMENT OF PATHOLOGY AND [address] [place] [address] Magnesium level (12/02/2017 1:57 PM)Only the most recent of2 resultswithin the time period is included. Magnesium 2.3 1.6 - 2.4 mg/dL [facility] DEPARTMENT OF PATHOLOGY AND GENOMIC MEDICINE Specimen Plasma specimen Performing Organization Address [facility] Phone Number [facility] DEPARTMENT PATHOLOGY AND [address] [place] [address] CT Head Wo Contrast (12/01/2017 2:23 PM) [...] involutional changes. No focal acute intracranial abnormalities. [facility]-[id number] Procedure Note Hm Interface, Radiology Results Incoming [...] involutional changes. No focal acute intracranial abnormalities. [facility]-[id number] Performing Organization Address City/State/Zipcode Phone Number [facility] [address] [place] [address] Smear review (11/30/2017 4:48 AM) Platelet slide review Nesha slt decr [facility] DEPARTMENT OF PATHOLOGY AND GENOMIC MEDICINE Anisocytosis Moderate [facility] DEPARTMENT OF PATHOLOGY AND GENOMIC MEDICINE Polychromasia Moderate [facility] DEPARTMENT OF PATHOLOGY AND GENOMIC MEDICINE Ovalocytes Moderate [facility] DEPARTMENT OF PATHOLOGY AND GENOMIC MEDICINE Performing Organization Address City/[facility]/Zipcode Phone Number [facility] DEPARTMENT OF PATHOLOGY AND [address] [place] [phone] GENOMIC MEDICINE Phosphorus level (11/30/2017 4:48 AM)Only the most recent of3 resultswithin the time period is included. Phosphorus 3.6 2.4 - 4.5 mg/dL [facility] DEPARTMENT OF PATHOLOGY AND GENOMIC MEDICINE Specimen Plasma specimen Performing Organization Address [facility] Phone Number [facility] DEPARTMENT OF PATHOLOGY AND [address] [place] [address] GENOMIC MEDICINE XR Tibia Fibula 2 Vw Left (11/29/2017 4:56 PM) Narrative Performed At EXAMINATION:XR TIBIA FIBULA 2 VW LEFT [facility] CLINICAL HISTORY: Postoperative COMPARISON:None. FINDINGS: Plate and screw fixation of a proximal tibial fracture. There is a nondisplaced proximal fibular fracture. There are opaque pellets in the adjacent soft tissues. Alignment at the knee joint is satisfactory. IMPRESSION: As above [facility]-[id number] Procedure Note Interface, Radiology Results Incoming - 11/29/2017 5:11 PM CDT EXAMINATION: XR TIBIA FIBULA 2 VW LEFT CLINICAL HISTORY: Postoperative COMPARISON: None. FINDINGS: Plate and screw fixation of a proximal tibial fracture. There is a nondisplaced proximal fibular fracture. There are opaque pellets in the adjacent soft tissues. Alignment at the knee joint is satisfactory. IMPRESSION: As above [facility]-[id number] Performing Organization Address [facility] Phone Number [facility] [address] [place] [address] XR Chest 1 Vw Portable (11/29/2017 4:48 PM) Narrative Performed At EXAMINATION:XR CHEST 1 VW PORTABLE [facility] CLINICAL HISTORY:check placement of tunneled catheter COMPARISON:None IMPRESSION: 1.Dialysis catheter tip is at the junction of the superior vena cava and right atrium. There is no pneumothorax. 2.There is some scarring and volume loss at the lung apices. 3.Heart size is at the upper limits normal. [id number] Procedure Note Interface, Radiology Results Incoming - [...] size is at the upper limits normal. [id number] Performing Organization Address [facility] Phone Number [facility] [address] [place] [address] OR [place] < 1 Hour (11/29/2017 3:45 PM) Narrative Performed At EXAMINATION:OR [place] 1 HOUR HM [facility] C-arm fluoroscopy was requested in OR. [...] C-arm fluoroscopy was requested in OR. LOCATION: [place] 3 OR 14 PROCEDURE: C-Arm for ZARAGOZA INSERTION START TIME: 1515 END TIME: 1545 FLUORO TIME: 25 sec DOSE (mGy): 3.43 TECH(S): Ankit Traore IMPRESSION: Separate operative report will be issued by the physician performing the procedure. [id number] Performing Organization Address [facility] Phone Number [facility] [address] [place] [address] B natriuretic peptide (11/28/2017 5:00 PM)Only the most recent of2 resultswithin the time period is included. BNP 334 (H) 0 - 100 pg/mL [facility] DEPARTMENT OF PATHOLOGY AND GENOMIC MEDICINE Specimen Blood Performing Organization Address [facility] Phone Number [facility] DEPARTMENT OF PATHOLOGY AND [address] [place] [address] MEDICINE Prealbumin level (11/26/2017 4:00 AM) Prealbumin 14 (L) 16 - 32 mg/dL [facility] DEPARTMENT OF PATHOLOGY AND GENOMIC MEDICINE Specimen Serum Performing Organization Address [facility] Phone Number [facility] DEPARTMENT OF PATHOLOGY AND [address] [place] [address] GENOMIC MEDICINE Comprehensive metabolic panel (11/26/2017 4:00 AM) Sodium 134 (L) 135 - 148 mEq/L [facility] DEPARTMENT OF PATHOLOGY AND GENOMIC MEDICINE Potassium 5.8 (H) 3.5 - 5.0 mEq/L [facility] DEPARTMENT OF PATHOLOGY AND GENOMIC MEDICINE Chloride 98 98 - 112 mEq/L [facility] DEPARTMENT OF PATHOLOGY AND GENOMIC MEDICINE CO2 26 24 - 31 mEq/L [facility] DEPARTMENT OF PATHOLOGY AND GENOMIC MEDICINE Anion gap 10@ANIO 7 - 15 mEq/L [facility] DEPARTMENT OF PATHOLOGY AND GENOMIC MEDICINE BUN 64 (H) 8 - 23 mg/dL [facility] DEPARTMENT OF PATHOLOGY AND GENOMIC MEDICINE Creatinine 1.7 (H) 0.5 - 0.9 mg/dL [facility] DEPARTMENT OF PATHOLOGY AND GENOMIC MEDICINE Glucose 127 (H) 65 - 99 mg/dL [facility] DEPARTMENT OF PATHOLOGY AND GENOMIC MEDICINE Calcium 8.9 8.8 - 10.2 mg/dL [facility] DEPARTMENT OF PATHOLOGY AND GENOMIC MEDICINE Protein 5.6 (L) 6.3 - 8.3 g/dL [facility] DEPARTMENT OF Comment: PATHOLOGY AND GENOMIC [place] 4.6-7.0 g/dL MEDICINE 1 week 4.4-7.6 g/dL 7 months-1year5.1-7.3 g/dL 1-2 years5.6-7.5 g/dL >3 years6.0-8.0 g/dL 18-150 6.3-8.3 g/dL Albumin 2.5 (L) 3.5 - 5.0 g/dL [facility] DEPARTMENT OF PATHOLOGY AND GENOMIC MEDICINE A/G ratio 0.8 0.7 - 3.8 [facility] DEPARTMENT OF PATHOLOGY AND GENOMIC MEDICINE Alkaline phosphatase 76 35 - 104 U/L [facility] DEPARTMENT OF PATHOLOGY AND GENOMIC MEDICINE AST 11 10 - 35 U/L [facility] DEPARTMENT OF PATHOLOGY AND GENOMIC MEDICINE ALT <5 (A) 5 - 50 U/L [facility] DEPARTMENT OF PATHOLOGY AND GENOMIC MEDICINE Total bilirubin <0.2 0.0 - 1.2 mg/dL [facility] DEPARTMENT OF PATHOLOGY AND GENOMIC MEDICINE Specimen Plasma specimen Performing Organization Address City/State/Zipcode Phone Number [facility] DEPARTMENT OF PATHOLOGY AND [address] [place] [phone] [facility] MEDICINE Surgical pathology request (11/25/2017 6:38 PM) [facility] DEPARTMENT OF PATHOLOGY AND GENOMIC MEDICINE Surgical pathology report See link below for PDF [facility] DEPARTMENT OF Lab Report PATHOLOGY AND GENOMIC MEDICINE Result status This is Final Report to [facility] DEPARTMENT OF [id number] PATHOLOGY AND GENOMIC MEDICINE Performing Organization Address City/State/Zipcode Phone Number [facility] DEPARTMENT OF PATHOLOGY AND [address] [place] [phone] GENOMIC MEDICINE Fungus smear (11/25/2017 2:53 PM)Only the most recent of2 resultswithin the time period is included. Fungus smear No fungi observed. [facility] DEPARTMENT OF PATHOLOGY AND Comment: DEQ MEDICINE Specimen Information Specimen Source: Tissue Specimen Site: LEFT KNEE #2 Specimen Tissue Performing Organization Address City/[facility] Phone Number [facility] DEPARTMENT OF PATHOLOGY AND [address] [place] [id number] [facility] AF[employer] culture (11/25/2017 2:53 PM)Only the most recent of2 resultswithin the time period is included. AFB culture isolate No growth after 6 weeks of incubation. [facility] DEPARTMENT OF PATHOLOGY Comment: AND [facility] Specimen Information Specimen Source: Tissue Specimen Site: LEFT KNEE #2 Specimen Tissue Performing Organization Address City/[facility] Phone Number [facility] DEPARTMENT OF PATHOLOGY AND [address] [place] [id number] [facility] Aerobic culture (11/25/2017 2:53 PM)Only the most recent of2 resultswithin the time period is included. Aerobic culture isolate Proteus mirabilis [facility] DEPARTMENT OF Occasional PATHOLOGY AND GENOMIC , susceptibility to follow MEDICINE This organism is NOT a carbapenemase producing organism. (A) Comment: Specimen Information Specimen Source: Tissue Specimen Site: LEFT KNEE #2 Specimen Tissue Organism Antibiotic Method Susceptibility Proteus mirabilis Amikacin DUSTIN <=4 mcg/mL: Susceptible Proteus mirabilis Amoxicillin/Clavulanate DUSTIN <=2/1 mcg/mL: Susceptible Proteus mirabilis Ampicillin/Sulbactam DUSTIN <=1/0.5 mcg/mL: Susceptible Proteus mirabilis Ampicillin DUSTIN [...] DUSTIN <=0.5 mcg/mL: Susceptible Performing Organization Address [facility] Phone Number [facility] DEPARTMENT OF PATHOLOGY AND [address] [place] [address] GENOMIC MEDICINE Gram stain (11/25/2017 2:53 PM)Only the most recent of2 resultswithin the time period is included. Gram stain isolate Rare WBC's [facility] DEPARTMENT OF PATHOLOGY No organisms seen AND GENOMIC MEDICINE Comment: Specimen Information Specimen Source: Tissue Specimen Site: LEFT KNEE #2 Specimen Tissue Performing Organization Address [facility] Phone Number [facility] DEPARTMENT OF PATHOLOGY AND [address] [place] [address] GENOMIC MEDICINE AFB stain (11/25/2017 2:53 PM)Only the most recent of2 resultswithin the time period is included. AFB stain No acid fast bacilli (AFB) seen. [facility] DEPARTMENT OF PATHOLOGY AND Comment: GENOMIC MEDICINE Specimen Information Specimen Source: Tissue Specimen Site: LEFT KNEE #2 Specimen Tissue Performing Organization Address [facility] Phone Number [facility] DEPARTMENT OF PATHOLOGY AND [address] [place] [address] GENOMIC MEDICINE Fungus culture (11/25/2017 2:53 PM)Only the most recent of2 resultswithin the time period is included. Fungus culture isolate No growth after 4 weeks of incubation. [facility] DEPARTMENT OF Comment: PATHOLOGY AND GENOMIC Specimen Information MEDICINE Specimen Source: Tissue Specimen Site: LEFT KNEE #2 Specimen Tissue Performing Organization Address City[facility] Phone Number [facility] DEPARTMENT OF PATHOLOGY AND [address] [place] [address] GENOMIC MEDICINE Anaerobic culture (11/25/2017 2:53 PM)Only the most recent of2 resultswithin the time period is included. Anaerobic culture Bacteroides fragilis [facility] DEPARTMENT OF isolate , beta lactamase positive PATHOLOGY AND GENOMIC (A) MEDICINE Comment: Specimen Information Specimen Source: Tissue Specimen Site: LEFT KNEE #2 Specimen Tissue Performing Organization Address City/State/Zipcode Phone Number [facility] DEPARTMENT OF PATHOLOGY AND [address] [place] [address] GENOMIC MEDICINE POC panel 4 (11/25/2017 12:24 PM) POC sodium 135 135 - 148 mmol/L [facility] DEPARTMENT OF PATHOLOGY AND GENOMIC MEDICINE POC potassium 6.5 (HH) 3.5 - 5.0 mmol/L [facility] DEPARTMENT OF PATHOLOGY AND GENOMIC MEDICINE POC hematocrit 29 (L) 37 - 47 % [facility] DEPARTMENT OF PATHOLOGY Comment: AND GENOMIC MEDICINE Meter ID: [id number] Network Systems Analyst: Jackson Gao POC glucose 63 (L) 65 - 99 mg/dL [facility] DEPARTMENT OF PATHOLOGY AND GENOMIC MEDICINE Performing Organization Address City[facility] Phone Number [facility] DEPARTMENT OF PATHOLOGY AND [address] [place] [address] GENOMIC MEDICINE after 03/01/2017 Insurance Payer Benefit Plan / Group Subscriber ID Type Phone Address MEDICARE MEDICARE PART A AND B xxxxxxxxxx Medicare [place], [place] MEDICAID MEDICAID xxxxxxxxx Medicaid Home: [id number] [facility] [phone] [address]
--- OUTSIDE RECORDS SUMMARY | 2018-03-02 11:00 | XMS REPORT | Clinical Summary ---
:1955 Author Organization [facility] Address [address] [place] [address] Phone Care Team Providers Name Role Phone [...] Not on file Results Not on fileafter 03/01/2017
[2018-03-02] MEDS ORDERED: LEVALBUTEROL 1.25 MG/3 ML NEB ONE (11:30)
[2018-03-02] MEDS ORDERED: IPRATROPIUM BROM 0.5MG/2.5ML ONE (11:30)
[2018-03-02] MEDS ORDERED: METHYLPREDNISOLONE 125 MG INJ ONE (11:30)
[2018-03-02 11:39] LABS: Absolute Lymphocytes (CBC) 0.3 K/uL (0.7-4.9); Absolute Monocytes 0.5 K/uL (0.1-1.3); Absolute Neutrophil 14.5 K/uL (1.8-8.0); Basophils % 0.4 % (0-1.3); Eosinophils % 1.6 % (0-4.4); Hematocrit 27.1 % (36.0-45.0); Lymphocytes % 1.7 % (15.3-44.8); MCH 31.2 pg (27.0-35.0); MCV 94.8 fL (80-100); MPV 8.2 fL (7.6-11.3); Monocytes % 3.3 % (3.3-12.3); RBC Red Blood Cell Count 2.86 M/uL (3.86-4.86)
--- NOTE | 2018-03-02 11:48 | RAD REPORT ---
EXAM DESCRIPTION: Debbit Single View03/02/2018 11:30 am CLINICAL HISTORY: Shortness of breath COMPARISON: 02/07/2018 FINDINGS: Opacification of the mid and lower right hemithorax is seen. Left lung appears clear. The heart is normal size IMPRESSION: Opacification of the mid and lower right hemithorax probably representing a combination of pleural effusion and pneumonia/atelectasis. This should be followed until it has cleared to help e xclude a post obstructive process/underlying mass
[2018-03-02] MEDS ORDERED: AZITHROMYCIN 500 MG/250 ML BAG ONE (12:01)
[2018-03-02] MEDS ORDERED: CEFTRIAXONE/SWI 1gm 1 GM/10 ML SYR ONE (12:01)
[2018-03-02 12:05] LABS: Potassium 5.4 mmol/L (3.5-5.1)
--- NOTE | 2018-03-02 12:37 | EDPHYS ---
Physician Documentation [facility] Name: Sima Asher Age: 62 yrs Sex: Female : 1955 Arrival Date: 03/02/2018 Time: 10:57 Bed 8 Private MD: Errol Menchaca ED Physician Veto Berry HPI: 03/02 11:12 This 62 yrs old Female presents to ER via Unassigned with complaints of rn Breathing Difficulty. 11:12 The patient has shortness of breath at rest. Onset: The symptoms/episode began/occurred rn 1 week(s) ago. Duration: The symptoms are continuous. The patient's shortness of breath is aggravated by light activity, talking. Associated signs and symptoms: Pertinent positives: non-productive cough, fever, Pertinent negatives: hemoptysis, vomiting. Severity of symptoms: At their worst the symptoms were moderate in the emergency department the symptoms have improved. The patient has experienced similar episodes in the past. Reports 1 week of feeling sick, + cough/chills/weakness/sob, noted by intermediate ot have fever today, sent for evaluation, oxygen low 80s per intermediate, mid 80s for EMS, given breathing treatment, and a little better. . Historical: - Allergies: 11:16 Clindamycin; sg 11:16 Bactrim; sg 11:16 Cozaar; sg 11:16 Losartan; sg 11:16 Clonidine; sg 11:16 sulfamethoxazole-trimethoprim; sg 11:16 Trimethoprim; sg - Home Meds: 11:16 aspirin 81 mg Oral chew 1 tab once daily [Active]; Ativan 0.5 mg Oral tab 1 tab daily sg [Active]; cetirizine 10 mg Oral tab 1 tab once daily [Active]; Coreg 25 mg Oral tab 1 tab 2 times per day [Active]; amlodipine 5 mg tab 1 tab once daily [Active]; gabapentin 100 mg Oral cap 1 caps 2 times per day [Active]; Augmentin 500-125 mg Oral tab 1 tab daily for Displaced Bicondylar Fx of R Tibia, Sequela [Active]; Cardura 1 mg Oral tab 1 tab once daily [Active]; ProAir HFA 90 mcg/actuation inhalation HFAA 2 puffs every 6 hours [Active]; Anoro Ellipta 62.5-25 mcg/actuation inhalation dsdv 1 puff once daily [Active]; docusate sodium 100 mg Oral cap 1 cap 2 times per day [Active]; Dulcolax (bisacodyl) 5 mg Oral TbEC 2 tabs once daily [Active]; esomeprazole magnesium 20 mg oral cpDR 1 cap once daily [Active]; Acidophilus Oral cap twice a day [Active]; acetaminophen 325 mg Oral tab 1 tab every 4-6 hours [Active]; tramadol 50 mg Oral tab 1 tab every 4 hours [Active]; trazodone 150 mg oral tab 1 tab daily, at bedtime [Active]; Zoloft 50 mg Oral tab 1 tab once daily [Active]; Vitamin D Oral 5000 unit daily [Active]; [place] 5-325 mg Oral tab 1 tab every 8 hours for Pain [Active]; sennosides 8.6 mg oral tab 2 tabs once daily [Active]; hydralazine 25 mg Oral tab 1 tab 3 times per day [Active]; Milk of Magnesia 400 mg/5 mL Oral susp 30 mL once daily [Active]; Maalox Maximum Strength 400-400-40 mg/5 mL oral susp 30 mL daily [Active]; - PMHx: 11:16 Anemia; CKD; COPD; Depression; Hypertension; GERD; sg - Immunization history:: Adult Immunizations up to date. - Social history:: Smoking status: Patient/guardian denies using tobacco. - Family history:: not pertinent. - Ebola Screening: : Patient negative for fever greater than or equal to 101.5 degrees Fahrenheit, and additional compatible Ebola Virus Disease symptoms Patient denies exposure to infectious person Patient denies travel to an Ebola-affected area in the 21 days before illness onset No symptoms or risks identified at this time. - Hospitalizations: : No recent hospitalization is reported. ROS: 11:12 Constitutional: + fever Eyes: Negative for injury, pain, redness, and discharge, Neck: rn Negative for injury, pain, and swelling, Cardiovascular: Negative for chest pain, palpitations, and edema, Respiratory: + sob and cough Abdomen/GI: Negative for abdominal pain, nausea, vomiting, diarrhea, and constipation, MS/Extremity: Negative for injury and deformity, Skin: Negative for injury, rash, and discoloration, Neuro: + generalized weakness Exam: 11:12 Constitutional: Thin female, mild tachypnea, appears sleepy Head/Face: Normocephalic, rn atraumatic. Eyes: Pupils equal round and reactive to light, extra-ocular motions intact. Lids and lashes normal. Conjunctiva and sclera are non-icteric and not injected. Cornea within normal limits. Periorbital areas with no swelling, redness, or edema. ENT: dry MM, no stridor Cardiovascular: Regular rate and rhythm, No pulse deficits. Respiratory: + mild tachypnea, no retractions, + diminished breath sounds bilaterally, speaking 4 word sentences, mild labored breathing Abdomen/GI: soft, non-tender MS/ Extremity: Pulses equal, no cyanosis. Neurovascular intact. Full, normal range of motion. Equal circumference. Neuro: Awake, GCS 15, oriented to person, place, time, and situation. Cranial nerves II-XII grossly intact. Motor strength 5/5 in all extremities. Sensory grossly intact. Vital Signs: 10:58 Pulse Ox 86% on R/A; sg 10:58 BP 177 / 80; Pulse 90; Resp 28 S; Temp 97.6; Pulse Ox 96% on 4 lpm NC; Weight 52.16 kg sg (R); Height 5 ft. 2 in. (157.48 cm) (R); Pain 0/10; 14:18 BP 144 / 77; Pulse 100; Resp 26; Pulse Ox 94% on 3 lpm NC; sg 10:58 Body Mass Index 21.03 (52.16 kg, 157.48 cm) sg MDM: 10:59 Patient medically screened. rn 12:34 Differential diagnosis: Bronchitis CHF exacerbation, Chronic Obstructive Pulmonary rn Disease Myocardial Infarction pneumonia, Pneumothorax pulmonary edema, reactive airway disease. Data reviewed: vital signs, nurses notes, lab test result(s), EKG, radiologic studies, plain films, and as a result, I will admit patient. Counseling: I had a detailed discussion with the patient and/or guardian regarding: the historical points, exam findings, and any diagnostic results supporting the discharge/admit diagnosis, lab results, radiology results, the need for further work-up and treatment in the hospital. Response to treatment: the patient's symptoms have mildly improved after treatment, and as a result, I will admit patient. Admission orders: after a detailed discussion of the patient's condition and case, the admit orders are written by me. 03/02 11:04 Order name: Blood Culture Adult (2) rn 03/02 11:04 Order name: BMP; Complete Time: 12:33 rn 03/02 11:04 Order name: CBC with Diff; Complete Time: 13:12 rn 03/02 11:04 Order name: NT PRO-BNP; Complete Time: 12:33 rn 03/02 11:06 Order name: Procalcitonin; Complete Time: 12:33 rn 03/02 11:06 Order name: Lactate; Complete Time: 13:12 rn 03/02 11:04 Order name: XRAY CXR (1 view); Complete Time: 11:51 rn 03/02 11:45 Order name: CBC Smear Scan; Complete Time: 13:12 EDMS 03/02 12:42 Order name: Flu rn 03/02 11:04 Order name: EKG; Complete Time: 11:05 rn 03/02 11:04 Order name: Cardiac monitoring; Complete Time: 12:11 rn 03/02 11:04 Order name: EKG - Nurse/Tech; Complete Time: 12:11 rn 03/02 11:04 Order name: IV Saline Lock; Complete Time: 12:11 rn 03/02 11:04 Order name: Labs collected and sent; Complete Time: 12:12 rn 03/02 11:04 Order name: O2 Per Protocol; Complete Time: 12:12 rn 03/02 11:04 Order name: O2 Sat Monitoring; Complete Time: 12:12 rn Administered Medications: 11:30 Drug: SOLU-Medrol 125 mg Route: IVP; Site: right antecubital; sg 11:30 Drug: Xopenex (3) 1.25 mg Route: Inhalation; sg 11:30 Drug: AtroVENT Aerosol 0.5 mg Route: Inhalation; sg 12:13 Not Given (Other Intervention Used): Rocephin - (cefTRIAXone) 1 grams IVPB once over 30 sg mins; (mix in 50 mL NS) 12:30 Drug: Rocephin 1 grams Route: IV; Rate: 1 calculated rate; Site: right antecubital; sg 12:50 Follow up: Response: No adverse reaction; IV Status: Completed infusion sg 12:35 Drug: AZITHromycin 500 mg Route: IVPB; Infused Over: 1 hrs; Site: right antecubital; sg 13:42 Follow up: Response: No adverse reaction; IV Status: Completed infusion sg 13:41 Drug: NS 0.9% 500 ml Route: IV; Rate: bolus; Site: right antecubital; sg Disposition: 03/02/18 12:36 Hospitalization ordered by Yosvany French for Inpatient Admission. Preliminary diagnosis are Chronic obstructive pulmonary disease with acute lower respiratory infection, Pneumonia, Acute kidney failure, unspecified. - Bed requested for Telemetry/MedSurg (Inpatient). - Status is Inpatient Admission. sg - Condition is Stable. - Problem is new. - Symptoms have improved. UTI on Admission? No Signatures: Dispatcher [employer] EDMS Earlene Maurice RN RN dw John Zacarias RN RN sg Veto Berry MD MD advertising intern: (The following items were deleted from the chart) 14:14 12:36 Hospitalization Ordered by Yosvany French MD for Inpatient Admission. Preliminary dw diagnosis is Chronic obstructive pulmonary disease with acute lower respiratory infection; Pneumonia; Acute kidney failure, unspecified. Bed requested for Telemetry/MedSurg (Inpatient). Status is Inpatient Admission. Condition is Stable. Problem is new. Symptoms have improved. UTI on Admission? No. rn 14:58 14:14 03/02/2018 12:36 Hospitalization Ordered by Yosvany French MD for Inpatient sg Admission. Preliminary diagnosis is Chronic obstructive pulmonary disease with acute lower respiratory infection; Pneumonia; Acute kidney failure, unspecified. Bed requested for Telemetry/MedSurg (Inpatient). Status is Inpatient Admission. Condition is Stable. Problem is new. Symptoms have improved. UTI on Admission? No. dw
--- NOTE | 2018-03-02 12:37 | ER ---
Nurse's Notes [facility] Name: Sima Asher Age: 62 yrs Sex: Female : 1955 Arrival Date: 03/02/2018 Time: 10:57 Bed 8 Private MD: Errol Menchaca Diagnosis: Chronic obstructive pulmonary disease with acute lower respiratory infection;Pneumonia;Acute kidney failure, unspecified Presentation: 03/02 11:12 Presenting complaint: EMS states: pt has had shortness of breath for 2 days, reports sg having fever this morning, denies having N/V/D, normally on o2 at 2 lpm, but having low sats today in the 80's per NH, EMS reports administering AA treament sats up to 95 percent, then placed to 4 lpm NC, sats maintained. pt denies pain, reports having difficulty breathing. Transition of care: patient was not received from another setting of care. Onset of symptoms was March 02, 2018. Risk Assessment: Do you want to hurt yourself or someone else? Patient reports no desire to harm self or others. Initial Sepsis Screen: Does the patient meet any 2 criteria? No. Patient's initial sepsis screen is negative. Does the patient have a suspected source of infection? No. Patient's initial sepsis screen is negative. Care prior to arrival: Glucose check: 164 Med neb given. Oxygen administered. via nasal cannula. 11:12 Method Of Arrival: EMS: [facility] sg 11:12 Acuity: SUNDAY 3 sg Historical: - Allergies: 11:16 Clindamycin; sg 11:16 Bactrim; sg 11:16 Cozaar; sg 11:16 Losartan; sg 11:16 Clonidine; sg 11:16 sulfamethoxazole-trimethoprim; sg 11:16 Trimethoprim; sg - Home Meds: 11:16 aspirin 81 mg Oral chew 1 tab once daily [Active]; Ativan 0.5 mg Oral tab 1 tab daily sg [Active]; cetirizine 10 mg Oral tab 1 tab once daily [Active]; Coreg 25 mg Oral tab 1 tab 2 times per day [Active]; amlodipine 5 mg tab 1 tab once daily [Active]; gabapentin 100 mg Oral cap 1 caps 2 times per day [Active]; Augmentin 500-125 mg Oral tab 1 tab daily for Displaced Bicondylar Fx of R Tibia, Sequela [Active]; Cardura 1 mg Oral tab 1 tab once daily [Active]; ProAir HFA 90 mcg/actuation inhalation HFAA 2 puffs every 6 hours [Active]; Anoro Ellipta 62.5-25 mcg/actuation inhalation dsdv 1 puff once daily [Active]; docusate sodium 100 mg Oral cap 1 cap 2 times per day [Active]; Dulcolax (bisacodyl) 5 mg Oral TbEC 2 tabs once daily [Active]; esomeprazole magnesium 20 mg oral cpDR 1 cap once daily [Active]; Acidophilus Oral cap twice a day [Active]; acetaminophen 325 mg Oral tab 1 tab every 4-6 hours [Active]; tramadol 50 mg Oral tab 1 tab every 4 hours [Active]; trazodone 150 mg oral tab 1 tab daily, at bedtime [Active]; Zoloft 50 mg Oral tab 1 tab once daily [Active]; Vitamin D Oral 5000 unit daily [Active]; [place] 5-325 mg Oral tab 1 tab every 8 hours for Pain [Active]; sennosides 8.6 mg oral tab 2 tabs once daily [Active]; hydralazine 25 mg Oral tab 1 tab 3 times per day [Active]; Milk of Magnesia 400 mg/5 mL Oral susp 30 mL once daily [Active]; Maalox Maximum Strength 400-400-40 mg/5 mL oral susp 30 mL daily [Active]; - PMHx: 11:16 Anemia; CKD; COPD; Depression; Hypertension; GERD; sg - Immunization history:: Adult Immunizations up to date. - Social history:: Smoking status: Patient/guardian denies using tobacco. - Family history:: not pertinent. - Ebola Screening: : Patient negative for fever greater than or equal to 101.5 degrees Fahrenheit, and additional compatible Ebola Virus Disease symptoms Patient denies exposure to infectious person Patient denies travel to an Ebola-affected area in the 21 days before illness onset No symptoms or risks identified at this time. - Hospitalizations: : No recent hospitalization is reported. Screenin:28 Abuse screen: Denies threats or abuse. Denies injuries from another. Nutritional sg screening: No deficits noted. Tuberculosis screening: No symptoms or risk factors identified. Never had TB. Fall Risk None identified. Assessment: 11:28 General: Appears in no apparent distress. comfortable, well groomed, well developed, sg well nourished, Behavior is calm, cooperative, appropriate for age. Pain: Denies pain. Neuro: Level of Consciousness is awake, alert, obeys commands, Oriented to person, place, time, situation, Moves all extremities. Full function Speech is normal, Facial symmetry appears normal. Cardiovascular: Capillary refill is brisk in bilateral fingers Patient's skin is warm and dry. Chest pain is denied. Respiratory: Airway is patent Respiratory effort is even, labored, Respiratory pattern is symmetrical, tachypnea Breath sounds are diminished in left posterior lower lobe and right posterior lower lobe Breath sounds with wheezes. GI: No signs and/or symptoms were reported involving the gastrointestinal system. : No signs and/or symptoms were reported regarding the genitourinary system. EENT: No signs and/or symptoms were reported regarding the EENT system. Derm: Skin is pink, warm \T\ dry. Musculoskeletal: No signs and/or symptoms reported regarding the musculoskeletal system. 14:15 Reassessment: Patient appears in no apparent distress at this time. attempt to call sg report, nurse only just now notified of new pt, instructed to please call back, pt updated, pt daughter updated, will try report again later. Respiratory: Respiratory effort is even, labored, Respiratory pattern is symmetrical, tachypnea. Derm: Skin is pink, warm \T\ dry. 14:37 Reassessment: at bedside evaluating pt at this time, awaiting report fo sg transport to room 406. Vital Signs: 10:58 Pulse Ox 86% on R/A; sg 10:58 BP 177 / 80; Pulse 90; Resp 28 S; Temp 97.6; Pulse Ox 96% on 4 lpm NC; Weight 52.16 kg sg (R); Height 5 ft. 2 in. (157.48 cm) (R); Pain 0/10; 14:18 BP 144 / 77; Pulse 100; Resp 26; Pulse Ox 94% on 3 lpm NC; sg 10:58 Body Mass Index 21.03 (52.16 kg, 157.48 cm) ED Course: 10:57 Patient arrived in ED. sg 10:57 Errol Menchaca MD is Private Physician. sg 10:58 Ruiz Navarro NP is PHCP. pm1 10:58 Veto Berry MD is Attending Physician. pm1 11:17 Inserted saline lock: 22 gauge in right antecubital area, using aseptic technique. ss Blood collected. 11:20 Triage completed. sg 11:20 Arm band placed on. sg 11:21 John Zacarias, SERENA is Primary Nurse. sg 11:28 Patient has correct armband on for positive identification. Placed in gown. Bed in low sg position. Side rails up X2. quenching car operator on. Pulse ox on. NIBP on. Warm blanket given. Pillow given. warm blanket x 4 Head of bed elevated. 11:30 XRAY CXR (1 view) In Process Unspecified. EDMS 12:35 Gris Jimenez MD is Hospitalizing Provider. rn 12:35 Yosvany French MD is Hospitalizing Provider. rn 14:40 No provider procedures requiring assistance completed. Patient admitted, IV remains in sg place. intact, No redness/swelling at site. Administered Medications: 11:30 Drug: SOLU-Medrol 125 mg Route: IVP; Site: right antecubital; sg 11:30 Drug: Xopenex (3) 1.25 mg Route: Inhalation; sg 11:30 Drug: AtroVENT Aerosol 0.5 mg Route: Inhalation; sg 12:13 Not Given (Other Intervention Used): Rocephin - (cefTRIAXone) 1 grams IVPB once over 30 sg mins; (mix in 50 mL NS) 12:30 Drug: Rocephin 1 grams Route: IV; Rate: 1 calculated rate; Site: right antecubital; sg 12:50 Follow up: Response: No adverse reaction; IV Status: Completed infusion sg 12:35 Drug: AZITHromycin 500 mg Route: IVPB; Infused Over: 1 hrs; Site: right antecubital; sg 13:42 Follow up: Response: No adverse reaction; IV Status: Completed infusion sg 13:41 Drug: NS 0.9% 500 ml Route: IV; Rate: bolus; Site: right antecubital; sg Outcome: 12:36 Decision to Hospitalize by Provider. rn 14:55 Admitted to Tele accompanied by fatou, via stretcher, room 406, with oxygen, with chart, sg Report called to Scar Neal RN 14:55 Condition: stable 14:55 Instructed on the need for admit, safety practices, Demonstrated understanding of instructions. 14:58 Patient left the ED. sg Signatures: Dispatcher [employer] John Short RN RN Veto Tolentino MD MD rn Smirch, Shelby, RN RN ss Marinas, Patrick, KIESHA WET INSPECTOR [employer] pm1
[2018-03-02] MEDS ORDERED: NA CHLORIDE 0.9% 500 ML ONE (12:47)
[2018-03-02 12:57] LABS: Urine White Blood Cell Casts OK
[2018-03-02 12:58] LABS: Blood Morphology Comment NOT SEEN (NOT SEEN); Platelet Estimate ADEQ
[2018-03-02] MEDS ORDERED: ONDANSETRON 4 MG/2 ML VIAL IV PRN (13:18)
[2018-03-02] MEDS ORDERED: ACETAMINOPHEN 500 MG TAB PO PRN (13:18)
[2018-03-02] MEDS ORDERED: ALBUTEROL 2.5 MG/3 ML NEB SOL NEB PRN (13:18)
[2018-03-02] MEDS ORDERED: NA CHLORIDE 0.9% 1,000 ML IV SCH (14:00)
[2018-03-02] MEDS ORDERED: SOD POLYSTYREN SUL 15 GM/60 ML UCUP PO ONE (15:38)
[2018-03-02 15:55] LABS: Arterial Blood Carboxyhemoglob 2.2 % (0-1.5); Blood O2 Saturation 90.8 % (92-98.5)
[2018-03-02] MEDS: ENOXAPARIN 30 MG/0.3 ML SQ SCH (17:00)
[2018-03-02] MEDS ORDERED: PNEUMOCOCCAL VACCINE 0.5 ML IMVAC ONE (17:00)
[2018-03-02] MEDS ORDERED: INFLUENZA VACCINE (for 3y+) 0.5 ML DOSE IMVAC ONE (17:00)
[2018-03-02 17:09] VITALS: BMI 21.0
[2018-03-02] MEDS: CARVEDILOL 25 MG TAB PO SCH (18:00)
[2018-03-02] MEDS: DOCUSATE NA 100 MG CAP PO SCH (20:23)
[2018-03-02] MEDS: LACTOBACILLUS/ACIDOPHILUS TAB PO SCH (20:23)
--- NOTE | 2018-03-02 20:24 | P.CNS ---
Date of Consult: 03/02/18 Reason for Consult: MINDI Requesting Physician: Yosvany French Chief Complaint: Dyspnea History of Present Illness: 62 yo WF CKD presented to the ER with one week of moderate, progressive dyspnea & hypoxia, worse with activity. Associated non-productive cough and fever. Seen and examined in her room. On Bipap due to acute hypoxic respiratory failure. She was unable to give an adequate HPI/ ROS. 11:12 This 62 yrs old Female presents to ER via Unassigned with complaints of rn Breathing Difficulty. 11:12 The patient has shortness of breath at rest. Onset: The symptoms/episode began/occurred rn 1 week(s) ago. Duration: The symptoms are continuous. The patient's shortness of breath is aggravated by light activity, talking. Associated signs and symptoms: Pertinent positives: non-productive cough, fever, Pertinent negatives: hemoptysis, vomiting. Severity of symptoms: At their worst the symptoms were moderate in the emergency department the symptoms have improved. The patient has experienced similar episodes in the past. Reports 1 week of feeling sick, + cough/chills/weakness/sob, noted by [facility]dc ot have fever today, sent for evaluation, oxygen low 80s per fdc, mid 80s for EMS, given breathing treatment, and a little better. Greater than 30 minutes patient care. Allergies losartan [From Cozaar] Allergy (Severe, Verified 10/18/17 05:11) kidney injury clindamycin Allergy (Intermediate, Verified 10/18/17 05:11) Itching/Hives/Rash clonidine Allergy (Verified 10/18/17 10:40) Unknown sulfamethoxazole [From Bactrim] Allergy (Verified 10/18/17 05:11) Unknown trimethoprim [From Bactrim] Allergy (Verified 10/18/17 05:11) Unknown Home medications list reviewed: Yes Home Medications: Amlodipine [Norvasc*] 5 mg PO DAILY tab 11/08/17 Aspirin Chewable [Aspirin Chewable*] 81 mg PO DAILY tab.chew 11/08/17 Carvedilol [Coreg*] 25 mg PO BID 6AM 6PM tab 11/08/17 Cetirizine HCl [Zyrtec*] 10 mg PO DAILY tablet 11/08/17 Cholecalciferol (Vitamin D3) [Vitamin D 5,000 IU Cap*] 5,000 unit PO DAILY cap 11/08/17 Docusate [Colace Cap*] 100 mg PO BID cap 11/08/17 Trazodone [Desyrel*] 150 mg PO BEDTIME #0 tab 11/08/17 traMADol HCL [Ultram*] 100 mg PO Q4H PRN #90 tab 11/08/17 Acetaminophen [Acetaminophen Extra Strength] 325 mg PO Q4H 03/02/18 Albuterol Sulfate [Proair Hfa] 2 puff IH Q6H 03/02/18 Amox/Clavulanate [Augmentin 500-125 mg Tab] 500 mg PO DAILY 03/02/18 Bisacodyl [Dulcolax] 10 mg PO DAILY 03/02/18 Doxazosin [Cardura*] 1 mg PO DAILY 03/02/18 Esomeprazole Magnesium [Nexium 24Hr] 20 mg PO DAILY 03/02/18 Gabapentin [Neurontin] 100 mg PO BID 03/02/18 Hydralazine [Apresoline*] 25 mg PO TID 03/02/18 Hydrocodone/Acetaminophen [Stewart 5-325 Tablet] 1 each PO Q8H 03/02/18 LORazepam [Ativan] 0.5 mg PO DAILY 03/02/18 Lactobacillus Acidophilus [Acidophilus] 1 each PO BID 03/02/18 Mag Hydrox/Al Hydrox/Simeth [Maalox Maximum Strength Susp] 30 ml PO DAILY Mag Hydroxide 8% [Milk Of Magnesia] 30 ml PO DAILY 03/02/18 Sennosides 2 tab PO DAILY 03/02/18 Sertraline [Zoloft] 50 mg PO DAILY 03/02/18 Umeclidinium Brm/Vilanterol Tr [Anoro Ellipta 62.5-25 Mcg INH] 1 each IH DAILY 03/02/18 - Past Medical/Surgical History Diabetic: No -: COPD oxygen-dependent -: Chronic renal disease -: Hypertension -: GERD -: Depression with things -: Hyperlipidemia -: Carotid arterial disease -: Allergic rhinitis -: Colon polyps -: Neuropathy -: Tobacco abuse -: MYALGIAS -: Colin hip replacements -: -: Tonsillectomy Psychosocial/ Personal History: Patient is currently living at home with her daughter - Family History Father Medical History: Heart disease, Hypertension, Cancer Notes: lung ca - Social History Smoking Status: Current every day smoker Alcohol use: No CD- Drugs: No Caffeine use: No Place of Residence: [facility] Review of Systems 10-point ROS is otherwise unremarkable General: Fever, Weakness, Malaise Respiratory: Cough, Shortness of Breath, SOB with Excertion Neurological: Weakness, Change in Speech, Confusion Physical Examination Temp Pulse Resp BP Pulse Ox 98.6 F 104 H 19 179/82 H 91 03/02/18 19:00 03/02/18 19:00 03/02/18 19:00 03/02/18 19:00 03/02/18 19:00 General: Cooperative, Moderate distress, Confused HEENT: Atraumatic, Mucous membr. moist/pink Neck: Supple, No LAD Respiratory: Clear to auscultation bilaterally, Diminished Cardiovascular: No edema, Regular rate/rhythm, No rubs Gastrointestinal: Soft and benign, Non-distended Musculoskeletal: No clubbing, No contractures Integumentary: No rashes, No erythema, No cyanosis Neurological: Abnormal speech Laboratory Data (last 24 hrs) 03/02/18 11:17: WBC 15.6 H, Hgb 8.9 L, Hct 27.1 L, Plt Count 197 03/02/18 11:17: Sodium 139, Potassium 5.4 H, BUN 63 H, Creatinine 3.50 H, Glucose 124 H Imagings Data: EXAM DESCRIPTION: RADChest Single View03/02/2018 11:30 am CLINICAL HISTORY: Shortness of breath COMPARISON: 02/07/2018 FINDINGS: Opacification of the mid and lower right hemithorax is seen. Left lung appears clear. The heart is normal size IMPRESSION: Opacification of the mid and lower right hemithorax probably representing a combination of pleural effusion and pneumonia/atelectasis. This should be followed until it has cleared to help exclude a post obstructive process/underlying mass EXAM DESCRIPTION: US - Renal Ultrasound-Complete - 01/30/2016 3:06 pm CLINICAL HISTORY: Acute renal failure. COMPARISON: 10/09/2015. FINDINGS: Both kidneys are echogenic. The right kidney measures 6.7 x 3.1 x 4.1 cm. No hydronephrosis. 11 mm cortical renal cyst is identified. The left kidney measures 8.6 x 4.8 x 3.2 cm. No hydronephrosis. Multiple benign cortical renal cysts on the left, largest measuring 2.9 x 2.9 cm. IMPRESSION: Bilateral echogenic kidneys, greater on the right, compatible with medical renal disease. Multiple benign cortical renal cysts, all anechoic and largest on the left (2.9 x 2.9 cm). The findings are stable since 10/09/2015 comparative study. Conclusions/Impression: A/ MINDI Hyperkalemia. CKD IV with proteinuria. A/C hypoxic respiratory failure on Bipap. COPD with exacerbation. PNA? Diastolic CHF, chronic. HTN with CKD. Anemia in chronic illness. Iron deficiency. IFG. P/ Continue current POC and Medications. Agree with Bipap therapy and Oxygen. Agree with abx. Agree with kayexalate. Continue IVF. No NSAIDs. AM labs. Daily weight. Thank you kindly for the consultation.
[2018-03-02] MEDS: CEFTRIAXONE/SWI 1gm 1 GM/10 ML SYR IVP SCH (20:27)
[2018-03-02] MEDS ORDERED: LACTOBACILLUS ACIDOPHILUS PO SCH (21:00)
[2018-03-02] MEDS ORDERED: CEFTRIAXONE 1 GM/NS 50 ML 50 ML IV SCH (21:00)
[2018-03-02] MEDS: NACHLORIDE 0.45% 1,000 ML IV SCH (23:41)
--- NOTE | 2018-03-03 02:16 | HP ---
Date of Admission: 03/02/2018 Primary Care Physician: Dr. Milian. Code Status: Full. Chief Complaint: Shortness of breath, confusion. History Of Present Illness: The patient is a 62-year-old female with past medical history of chronic kidney disease stage 4, hypertension, COPD on oxygen, neuropathy, GERD with recent tibial fractures bilaterally who has been in SNF for physical therapy, who has been having some cough, shortness of br eath worse than usual, and some decreased level of alertness. The patient has had decreased p.o. int segun, scant sputum production. The patient did have some fever. No chills. No nausea or vomiting. The patient denies any ill contacts, however, is a resident of residential. It should be noted that majority of history is taken from the daughter as patient is somewhat unable to cooperate with the h istory taking due to her medical condition. The patient's symptoms are constant, moderate, progressi vely worsening. When she came in, the patient was hypoxic. She was able to be placed on nasal cannu la and her saturations came up to the 90s and was initially found in with O2s of in the 80s at the [facility]. The patient's workup revealed elevated white count 15,000 with left shift. Procalcitoni n was elevated at 1.6. BNP was 4948. Chest x-ray showed pneumonia on the right side. The patient w as then referred for admission. When seen in the ER, she was asleep but arousable, somewhat confused . Past Medical History: Gastroesophageal reflux disease, neuropathy, anemia, chronic kidney disease st age 6, hypertension, COPD. She also has allergic rhinitis, hyperlipidemia, colonic polyps, carotid a rterial disease, and depression. Past Surgical History: The patient had left tibial plateau ORIF, bilateral hip replacement, C-sectio n, tonsillectomy. Allergies: TO LOSARTAN, CLINDAMYCIN, AND BACTRIM. Medications: List reviewed. Family History: Father had heart disease, hypertension, and lung cancer. Social History: The patient currently at the [facility]. Otherwise, lives a lone at home. Does have a daughter and good social support. Has quit smoking since October. Used to b e a heavy smoker prior to that. No alcohol or illicit drug use. Review of Systems: Limited due to patient's medical condition, however, 10-point systems reviewed and is negative. Physical Examination: Vital Signs: Blood pressure 177/80, pulse 90, respirations 28, temperature 97.6, O2 86% on room air, improved to 96% on 4 L via nasal cannula. General: Asleep, but arousable, confused female, ill-appearing, elderly, appears older than stated a ge. HEENT: Normocephalic, atraumatic. PERRLA. Dry mucous membranes. Oropharynx is clear. Conjunctiva e anicteric. Neck: Supple. No JVD. Trachea midline. CV: S1, S2. No murmurs. Regular rate and rhythm. Peripheral pulses present, are weak bilaterally. Respiratory: Diminished breath sounds, worse on the right. Some rales. No wheezing or stridor. Th e patient is tachypneic, use of accessory muscles present. Gastrointestinal: Abdomen is soft, nontender, nondistended. Positive bowel sounds. No guarding or rigidity. Extremities: No clubbing, cyanosis. Trace pedal edema on the left. Neuro: Cranial nerves 2 through 12 intact grossly. No focal neurological deficits. Speech is demetrius l. Strength is symmetric bilateral upper and lower extremities. The patient does have some decrease d sensation to light touch in the lower extremities. Skin: Healing surgical incision scar on the left leg. No signs of infection. Normal skin turgor. Capillary refill is less than 2 seconds. Laboratory Data: Sodium 139, potassium 5.4, chloride 104, CO2 27, BUN 63, creatinine 6.5, glucose 12 4, lactate 0.6, calcium 9.4, BNP 4948, procalcitonin is 1.63. WBC 15.6, H and H 8.9/27.1, platelets 197, neutrophils 93%. Influenza screen is negative. Chest x-ray shows opacification of the mid and lower right hemithorax, probably representing a combination of pleural effusion and pneumonia atelect asis. Should be followed until cleared up to help exclude a postobstructive process underlying mass. Assessment And Plan: A 62-year-old female with: 1.Sepsis. The patient is tachypneic. White count is elevated. Elevated procalcitonin. Source of infection is pneumonia. We will start on sepsis bundle. Blood cultures and sputum cultures have bee n obtained. We will continue with IV antibiotics. 2.Right-sided pneumonia, rule out aspiration. We will have Speech evaluate the patient. We will co ntinue with IV antibiotics and follow up on cultures. 3.Recent bilateral tibial fracture, status post open reduction and internal fixation on the left wit h subsequent infection and treatment with long-term IV antibiotics. Currently now on prophylactic an tibiotics orally. The patient does have hardware. We will continue oral antibiotics. 4.Gastroesophageal reflux disease without esophagitis. Continue PPI. 5.Hyperkalemia. We will give Kayexalate and monitor potassium level. 6.Neuropathy. 7.Anemia of chronic disease, iron deficiency. 8.Acute on chronic kidney injury, stage 4. Creatinine is elevated above baseline, likely due to pre renal azotemia. We will continue with IV fluids and consult Dr. Holcomb, the patient's anatomic pathology manager. Monitor creatinine. Avoid nephrotoxins. 9.Essential hypertension, stable. 10.Chronic obstructive pulmonary disease, chronic bronchitis with chronic respiratory failure. The patient is O2 dependent. 11.Acute metabolic encephalopathy, likely related to sepsis, hyperkalemia, and kidney dysfunction. We will place on fall precautions. Plan: Admit the patient to Med-Surg, place as inpatient. GI, DVT prophylaxis addressed. /AZALEA Voice ID: [id number]
[2018-03-03] MEDS: TRAMADOL HCL 50 MG TAB PO PRN ×2 (04:45→21:32)
[2018-03-03] MEDS: CARVEDILOL 25 MG TAB PO SCH ×3 (05:36→16:59)
[2018-03-03] MEDS: NACHLORIDE 0.45% 1,000 ML IV SCH ×2 (06:17→16:58)
--- NOTE | 2018-03-03 06:52 | EKG ---
Test Date: 2018-03-02 Test Time: 11:29:26 Stave Inspector: VIANEY MEASUREMENT RESULTS: Intervals: Rate: 93 WA: 172 QRSD: 80 QT: 360 QTc: 447 [place]: P: 66 WA: 172 QRS: 11 T: 53 INTERPRETIVE STATEMENTS: Normal sinus rhythm Normal ECG Compared to ECG 02/07/2018 10:44:34 Left ventricular hypertrophy no longer present Electronically Signed On 03-03-18 06:49:24 CDT by Yeyo Galicia
[2018-03-03 07:11] LABS: Albumin 2.9 g/dL (3.4-5.0); Bilirubin Total 0.2 mg/dL (0.2-1.0); Magnesium 2.5 mg/dL (1.8-2.4); Phosphorus 4.6 mg/dL (2.5-4.9); Potassium 4.8 mmol/L (3.5-5.1); Protein, Total 6.8 g/dL (6.4-8.2); Uric Acid 9.4 mg/dL (2.6-6.0)
[2018-03-03 07:18] LABS: Absolute Lymphocytes (CBC) 0.3 K/uL (0.7-4.9); Absolute Monocytes 0.6 K/uL (0.1-1.3); Absolute Neutrophil 7.4 K/uL (1.8-8.0); Basophils % 0.2 % (0-1.3); Eosinophils % 0.1 % (0-4.4); Hematocrit 22.8 % (36.0-45.0); Lymphocytes % 3.6 % (15.3-44.8); MCH 31.6 pg (27.0-35.0); MPV 8.1 fL (7.6-11.3); Monocytes % 6.8 % (3.3-12.3); RBC Red Blood Cell Count 2.45 M/uL (3.86-4.86)
[2018-03-03 07:19] LABS: Urine Appearance CLEAR; Urine Bilirubin NEGATIVE (NEG); Urine Blood NEGATIVE (NEG); Urine Color YELLOW; Urine Glucose TRACE (NEG); Urine Protein 2+ (NEG); Urine Urobilinogen 0.2 mg/dL (0.2-1.0)
[2018-03-03 07:32] LABS: Urine Bacteria <20 /HPF (<20); Urine Culture Reflex Order NOT NEEDED; Urine RBC <5 /HPF (NONE SEEN)
[2018-03-03 07:58] LABS: UR MICROALBUMIN 37.9 mg/dL (< 1.9)
[2018-03-03 08:01] LABS: Platelet Estimate ADEQ; Urine White Blood Cell Casts OK
[2018-03-03 08:02] LABS: Blood Morphology Comment NOT SEEN (NOT SEEN); Hypochromasia 1+
[2018-03-03 08:43] LABS: Blood Gas Oxyhemoglobin 88.1 % (94-97); Blood O2 Saturation 90.5 % (92-98.5)
[2018-03-03] MEDS ORDERED: ESOMEPRAZOLE MAGNESIUM 20 MG PO SCH (09:00)
[2018-03-03] MEDS: MAGNESIUM HYDROXIDE 8% 30 ML PO SCH (09:00)
[2018-03-03] MEDS ORDERED: HOME MED 1 EA UNK (Umeclidinium Brm/Vilanterol Tr [Anoro Ellipta 62.5-25 Mcg Inh] 1 EACH) IH SCH (09:00)
[2018-03-03] MEDS ORDERED: MAG HYDROX PO SCH (09:00)
[2018-03-03] MEDS ORDERED: AL HYDROX PO SCH (09:00)
[2018-03-03] MEDS ORDERED: SIMETH PO SCH (09:00)
[2018-03-03] MEDS: AZITHROMYCIN IV 500 MG in NA CHLORIDE 0.9% 250 ML IVPB SCH (09:38)
[2018-03-03] MEDS: ASPIRIN 81 MG CHEWABLE TABLET PO SCH (09:39)
[2018-03-03] MEDS: PANTOPRAZOLE 40MG TABLET PO SCH (09:39)
[2018-03-03] MEDS: SERTRALINE HCL 50 MG TAB PO SCH (09:39)
[2018-03-03] MEDS: CEFTRIAXONE/SWI 1gm 1 GM/10 ML SYR IVP SCH ×2 (09:39→21:32)
[2018-03-03] MEDS: CETIRIZINE HCL 5 MG TABLET PO SCH (09:39)
[2018-03-03] MEDS: LACTOBACILLUS/ACIDOPHILUS TAB PO SCH ×2 (09:40→21:33)
[2018-03-03] MEDS: BISACODYL E.C. 5 MG TAB PO SCH (09:40)
[2018-03-03] MEDS: AMOX/K CLAV 500 MG TAB PO SCH (09:40)
[2018-03-03] MEDS: SENOSIDES 8.6 MG TAB PO SCH (09:40)
[2018-03-03] MEDS: DOCUSATE NA 100 MG CAP PO SCH ×2 (09:40→21:00)
[2018-03-03] MEDS: MAGNES/ALUMIN/SIMET 30ML UCUP PO SCH (09:40)
[2018-03-03 12:36] LABS: Hematocrit 22.6 % (36.0-45.0)
--- NOTE | 2018-03-03 13:25 | PN ---
Date of Progress Note: 03/03/2018 Subjective: The patient seen and examined. Chart reviewed and case discussed with RN. The patient was placed on BiPAP yesterday. Today is much more awake and alert. States that her shortness of joni ath still present; however, somewhat improving. The patient denies any other complaints. Review of Systems: Negative except as above. Medications: List reviewed. Physical Examination: Vital Signs: Temperature 98.1, heart rate 88, blood pressure 181/79, respirations 18, O2 93% on BiPA P. CV: S1, S2. No murmurs. Peripheral pulses present. Respiratory: Diminished breath sounds. Some rales heard and some wheezing. Gastrointestinal: Abdomen is soft, nontender, nondistended. Positive bowel sounds. Extremities: No clubbing, cyanosis, edema. Neurologic: Nonfocal. Laboratory Data: Sodium 140, potassium 4.8, chloride 106, CO2 23, BUN 74, creatinine 2.9, glucose 21 6, uric acid is 9.4, calcium 8.5, phosphorus 4.6, magnesium 2.5, albumin 2.9. WBC 8.3, H and H 7.8 a nd 22.8, neutrophils 89%. ABG 7.32, pCO2 47, pO2 64. Blood cultures pending. Influenza screen is n egative. Assessment And Plan: A 62-year-old female with: 1.Acute metabolic encephalopathy likely secondary to sepsis, CO2 narcosis. 2.Sepsis, improving. White count normalized. Procalcitonin is elevated. The patient has pneumonia . Follow up on cultures. Continue antibiotics. 3.Right-sided pneumonia, possibly aspiration pneumonia. Speech therapy to evaluate patient. We beni l continue antibiotics. Follow up on cultures, no growth to date. 4.[id number]-[id number] kidney injury, stage IV. Creatinine is improving. We will continue with IV flui ds. Appreciate Dr. Holcomb's input. Monitor creatinine. Avoid nephrotoxins. 5.Hyperkalemia, corrected. 6.Chronic obstructive pulmonary disease with chronic bronchitis and chronic respiratory failure. Co ntinue supplemental oxygen. 7.CO2 narcosis. The patient ABG showed CO2 retention, was placed on BiPAP. The patient is much mor e awake and alert now. Discontinue BiPAP. 8.Gastroesophageal reflux disease without esophagitis. Continue PPI. 9.Neuropathy. 10.Anemia of chronic disease and iron deficiency anemia. Continue to monitor H and H, if less than 7, we will transfuse. Recheck today at noon. 11.Essential hypertension, stable. We will resume home medications. 12.Recent bilateral tibial fracture status post ORIF on the left. The patient on prophylactic antib iotics orally. Plan: GI and DVT prophylaxis addressed. Follow up on cultures. Overall improved. DEVON Voice ID: [id number] Report ID: [id number]
[2018-03-03] MEDS: ENOXAPARIN 30 MG/0.3 ML SQ SCH (16:58)
[2018-03-03] MEDS ORDERED: TRAZODONE 50 MG TABLET PO PRN (20:08)
[2018-03-03] MEDS: HYDRALAZINE HCL 20 MG/ML VIAL IV PRN (21:33)
--- NOTE | 2018-03-03 23:52 | P.PN ---
Date of Service: 03/03/18 Vital Signs Temp Pulse Resp BP Pulse Ox 98.0 F 84 18 186/90 H 93 03/03/18 19:00 03/03/18 19:00 03/03/18 19:00 03/03/18 19:00 03/03/18 19:00 Medications Acetaminophen (Tylenol -Extra Strength) 500 mg PO Q4HP PRN PRN Reason: [id number] Stop: 04/01/18 13:19 Al Hydrox/Mg Hydrox/Simethicone (Maalox) 30 ml PO DAILY [facility] Stop: 04/02/18 09:01 Last Admin: 03/03/18 09:40 Dose: 30 ml Albuterol Sulfate (Proventil 0.083% Neb Soln) 2.5 mg NEB [id number] PRN PRN Reason: SHORTNESS OF BREATH Stop: 04/01/18 13:19 Amlodipine Besylate (Norvasc) 5 mg PO DAILY [facility] Stop: 04/03/18 09:01 Amoxicillin/Clavulanate Potassium (Augmentin 500-125 Mg Tab) 500 mg PO DAILY [facility]; Protocol Stop: 04/02/18 09:01 Last Admin: 03/03/18 09:40 Dose: 500 mg Aspirin (Aspirin Chewable) 81 mg PO DAILY [facility] Stop: 04/02/18 09:01 Last Admin: 03/03/18 09:39 Dose: 81 mg Bisacodyl (Dulcolax) 10 mg PO DAILY [facility] Stop: 04/02/18 09:01 Last Admin: 03/03/18 09:40 Dose: 10 mg Carvedilol (Coreg) 25 mg PO BID 6AM 6PM [facility] Stop: 04/01/18 18:01 Last Admin: 03/03/18 16:59 Dose: Not Given Cetirizine HCl (Zyrtec) 10 mg PO DAILY [facility] Stop: 04/02/18 09:01 Last Admin: 03/03/18 09:39 Dose: 10 mg Docusate Sodium (Colace Cap) 100 mg PO BID [facility] Stop: 04/01/18 21:01 Last Admin: 03/03/18 21:00 Dose: Not Given Doxazosin Mesylate (Cardura) 1 mg PO DAILY [facility] Stop: 04/03/18 09:01 Enoxaparin Sodium (Lovenox 30 Mg Inj) 30 mg SQ DAILY 5 PM [facility] Stop: 04/01/18 17:01 Last Admin: 03/03/18 16:58 Dose: 30 mg Enteral Nutritional Formula (Suplena) 237 ml PO DAILY SUSAN Stop: 04/03/18 09:01 Gabapentin (Neurontin) 100 mg PO BID SUSAN Stop: 04/03/18 09:01 Home Med (Umeclidinium Brm/Vilanterol Tr [Anoro Ellipta 62.5-25 Mcg Inh]) 1 each IH DAILY SUSAN Stop: 04/02/18 09:01 Hydralazine HCl (Apresoline) 10 mg IV Q6HP PRN PRN Reason: HIGH BP Stop: 04/01/18 22:24 Last Admin: 03/03/18 21:33 Dose: 10 mg Azithromycin 500 mg/ Sodium (Chloride) 250 mls @ 250 mls/hr IVPB DAILY [facility]; Protocol Stop: 04/02/18 09:01 Last Admin: 03/03/18 09:38 Dose: 250 mls Ceftriaxone Sodium/Sodium Chloride (Rocephin 1 Gm/10 Ml Swi Ivp) 1 gm in 10 mls @ 600 mls/hr IVP Q12HR SUSAN; Protocol Stop: 04/01/18 21:01 Last Admin: 03/03/18 21:32 Dose: 10 mls Sodium Chloride (Sodium Chloride 0.45%) 1,000 mls @ 100 mls/hr IV .Q10H SUSAN Stop: 04/01/18 21:01 Last Admin: 03/03/18 16:58 Dose: 1,000 mls Lactobacillus Acidoph/Bulgaricus (Lactinex) 1 tab PO BID SUSAN Stop: 04/01/18 21:01 Last Admin: 03/03/18 21:33 Dose: 1 tab Lorazepam (Ativan) 0.5 mg PO DAILY SUSAN Stop: 04/03/18 09:01 Magnesium Hydroxide (Milk Of Magnesia) 30 ml PO DAILY SUSAN Stop: 04/02/18 09:01 Last Admin: 03/03/18 09:00 Dose: Not Given Ondansetron HCl (Zofran) 4 mg IV Q4H PRN PRN Reason: NAUSEA / VOMITING Stop: 04/01/18 13:19 Pantoprazole Sodium (Protonix Tab) 40 mg PO ACB SUSAN Stop: 04/02/18 07:31 Last Admin: 03/03/18 09:39 Dose: 40 mg Senna (Senokot) 17.2 mg PO DAILY SUSAN Stop: 04/02/18 09:01 Last Admin: 03/03/18 09:40 Dose: 17.2 mg Sertraline HCl (Zoloft) 50 mg PO DAILY SUSAN Stop: 04/02/18 09:01 Last Admin: 03/03/18 09:39 Dose: 50 mg Sodium Chloride (Normal Saline Flush) 10 ml IV BID SUSAN Stop: 04/01/18 21:01 Last Admin: 03/03/18 21:32 Dose: 10 ml Tramadol HCl (Ultram) 100 mg PO Q4H PRN PRN Reason: PAIN Stop: 04/01/18 17:44 Last Admin: 03/03/18 21:32 Dose: 100 mg Trazodone HCl (Desyrel) 50 mg PO BEDTIME PRN PRN PRN Reason: INSOMNIA Stop: 04/02/18 20:09 Last Admin: 03/03/18 21:32 Dose: 50 mg Trazodone HCl (Desyrel) 150 mg PO BEDTIME SUSAN Stop: 04/03/18 21:01 Microbiology Results 03/02/18 11:50 Blood - Blood Aerobic Blood Culture - Preliminary No growth in 24 hours. 03/02/18 11:50 Blood - Blood Anaerobic Blood Culture - Final 03/02/18 11:17 Blood - Blood Aerobic Blood Culture - Preliminary No growth in 24 hours. 03/02/18 11:17 Blood - Blood Anaerobic Blood Culture - Preliminary No growth in 24 hours. Assessment/ Plan: Nephrology. Feeling better today. CPS improved without CP or SOB. Off bipap today. No acute events overnight. Vitals, medications blood work and imaging reviewed in the chart. General: Cooperative. NAD. HEENT: Atraumatic, Mucous membr. moist/pink Neck: Supple, No LAD Respiratory: Clear to auscultation bilaterally Cardiovascular: No edema, Regular rate/rhythm, No rubs Gastrointestinal: Soft and benign, Non-distended Musculoskeletal: No clubbing, No contractures Integumentary: No rashes, No erythema, No cyanosis Neurological: Abnormal speech Laboratory Data (last 24 hrs) 03/02/18 11:17: WBC 15.6 H, Hgb 8.9 L, Hct 27.1 L, Plt Count 197 03/02/18 11:17: Sodium 139, Potassium 5.4 H, BUN 63 H, Creatinine 3.50 H, Glucose 124 H Imagings Data: EXAM DESCRIPTION: Niiva Single View03/02/2018 11:30 am CLINICAL HISTORY: Shortness of breath COMPARISON: 02/07/2018 FINDINGS: Opacification of the mid and lower right hemithorax is seen. Left lung appears clear. The heart is normal size IMPRESSION: Opacification of the mid and lower right hemithorax probably representing a combination of pleural effusion and pneumonia/atelectasis. This should be followed until it has cleared to help exclude a post obstructive process/underlying mass EXAM DESCRIPTION: US - Renal Ultrasound-Complete - 01/30/2016 3:06 pm CLINICAL HISTORY: Acute renal failure. COMPARISON: 10/09/2015. FINDINGS: Both kidneys are echogenic. The right kidney measures 6.7 x 3.1 x 4.1 cm. No hydronephrosis. 11 mm cortical renal cyst is identified. The left kidney measures 8.6 x 4.8 x 3.2 cm. No hydronephrosis. Multiple benign cortical renal cysts on the left, largest measuring 2.9 x 2.9 cm. IMPRESSION: Bilateral echogenic kidneys, greater on the right, compatible with medical renal disease. Multiple benign cortical renal cysts, all anechoic and largest on the left (2.9 x 2.9 cm). The findings are stable since 10/09/2015 comparative study. Conclusions/Impression: A/ MINDI Hyperkalemia. CKD IV with proteinuria. A/C hypoxic respiratory failure on Bipap. COPD with exacerbation. PNA? Diastolic CHF, chronic. HTN with CKD. Anemia in chronic illness. Iron deficiency. IFG. P/ Continue current POC and Medications. Bipap therapy prn. Agree with abx. Transfuse as needed. Continue IVF. No NSAIDs. AM labs. Daily weight. Case discussed with Dr. French.
[2018-03-04] MEDS ORDERED: TRAZODONE 50 MG TABLET PO ONE (00:03)
[2018-03-04] MEDS ORDERED: TRAZODONE 50 MG TABLET ONE (00:05)
[2018-03-04] MEDS: NACHLORIDE 0.45% 1,000 ML IV SCH ×3 (02:52→23:30)
[2018-03-04] MEDS: HYDRALAZINE HCL 20 MG/ML VIAL IV PRN ×3 (03:58→23:30)
[2018-03-04] MEDS: TRAMADOL HCL 50 MG TAB PO PRN ×2 (03:59→20:35)
[2018-03-04] MEDS: CARVEDILOL 25 MG TAB PO SCH ×2 (05:57→18:08)
[2018-03-04 06:31] LABS: Basophils % 0.6 % (0-1.3); Eosinophils % 12.7 % (0-4.4); Hematocrit 23.7 % (36.0-45.0); MCH 31.4 pg (27.0-35.0); MCV 92.4 fL (80-100); MPV 7.8 fL (7.6-11.3); Monocytes % 7.6 % (3.3-12.3); RBC Red Blood Cell Count 2.56 M/uL (3.86-4.86)
[2018-03-04 06:55] LABS: Albumin 2.7 g/dL (3.4-5.0); Bilirubin Total 0.2 mg/dL (0.2-1.0); Potassium 4.4 mmol/L (3.5-5.1); Protein, Total 6.4 g/dL (6.4-8.2)
[2018-03-04] MEDS: CETIRIZINE HCL 5 MG TABLET PO SCH (08:18)
[2018-03-04] MEDS: CEFTRIAXONE/SWI 1gm 1 GM/10 ML SYR IVP SCH ×2 (08:19→20:35)
[2018-03-04] MEDS: MAGNES/ALUMIN/SIMET 30ML UCUP PO SCH (08:19)
[2018-03-04] MEDS: DOXAZOSIN 2 MG TAB PO SCH (08:19)
[2018-03-04] MEDS: SERTRALINE HCL 50 MG TAB PO SCH (08:20)
[2018-03-04] MEDS: LACTOBACILLUS/ACIDOPHILUS TAB PO SCH ×2 (08:20→20:35)
[2018-03-04] MEDS: ASPIRIN 81 MG CHEWABLE TABLET PO SCH (08:21)
[2018-03-04] MEDS: GABAPENTIN 100 MG CAP PO SCH ×2 (08:21→20:36)
[2018-03-04] MEDS: LORAZEPAM 0.5 MG TABLET PO SCH (08:22)
[2018-03-04] MEDS: PANTOPRAZOLE 40MG TABLET PO SCH (08:22)
[2018-03-04] MEDS: SENOSIDES 8.6 MG TAB PO SCH (08:22)
[2018-03-04] MEDS: DOCUSATE NA 100 MG CAP PO SCH ×2 (08:24→20:36)
[2018-03-04] MEDS: MAGNESIUM HYDROXIDE 8% 30 ML PO SCH (08:29)
[2018-03-04] MEDS: BISACODYL E.C. 5 MG TAB PO SCH (08:29)
[2018-03-04] MEDS: AMOX/K CLAV 500 MG TAB PO SCH (08:34)
[2018-03-04] MEDS: SUPLENA IMPAIRED RENAL 237 ML CAN PO SCH (08:35)
[2018-03-04] MEDS ORDERED: AMLODIPINE 5 MG TAB PO SCH (09:00)
[2018-03-04] MEDS: AZITHROMYCIN IV 500 MG in NA CHLORIDE 0.9% 250 ML IVPB SCH (10:25)
--- NOTE | 2018-03-04 16:20 | PN ---
Date of Progress Note: 03/04/2018 History: The patient was seen and examined. Chart reviewed and case discussed with RN. The patient is feeling anxious and struggling to breathe this morning. Daughter at the bedside. Treatment plan explained. All questions answered. Review of Systems: Negative except as above. Medications: List reviewed. Physical Examination: Vital Signs: Temperature 98.4, heart rate 83, blood pressure 147/72, respirations 16, O2 93% on 2 L via nasal cannula. General: Awake, alert, oriented x3, in some moderate respiratory distress. Ill-appearing female, ap pears older than stated age. CV: S1, S2. Regular rate and rhythm. Peripheral pulses present. Respiratory: Diminished breath sounds. Wheezing heard. The patient is tachypneic. Use of accessor y muscles is present. No stridor. Gastrointestinal: Abdomen is soft, nontender, nondistended. Positive bowel sounds. Extremities: No clubbing, cyanosis, or edema. Neurologic: Nonfocal. Laboratory Data: Sodium 140, potassium 4.4, chloride 107, CO2 24, BUN 63, creatinine 2.1, glucose 85 , calcium 8.2. WBC 12.7, H and H 8, 23.7, platelets 226, neutrophils 71%. Blood cultures show no gr owth to date. Stool occult blood is negative. Assessment And Plan: A 62-year-old female with: 1.Acute metabolic encephalopathy secondary to sepsis, CO2 narcosis, improving. The patient much mor e awake and alert. 2.Sepsis. White count elevated today again, secondary to pneumonia. Sepsis is secondary to pneumon ia. Cultures negative to date. We will continue IV antibiotics. 3.Right-sided pneumonia, possible aspiration pneumonia. The patient was also evaluated by [facility]. No aspiration present, but will be placed on mechanically soft foods due to the patient's sebastian ntulous status. 4.Acute on chronic kidney injury, stage 4. Creatinine is improving. Appreciate Dr. Holcomb's input . We will continue to monitor creatinine. Avoidance of nephrotoxins and NSAIDs. Continue with IV f luids. 5.Hyperkalemia, corrected. 6.Chronic obstructive pulmonary disease with acute on chronic exacerbation. We will add steroids. Dr. Verma has been consulted. 7.Acute respiratory distress secondary to CO2 narcosis and possible anxiety. We will replace patien t back on BiPAP. 8.Chronic respiratory failure. The patient is O2 dependent. 9.Gastroesophageal reflux disease without esophagitis. Continue PPI. 10.Neuropathy. Continue gabapentin. 11.Generalized anxiety disorder. The patient is dependent on chronic benzodiazepines. 12.Anemia of chronic disease and iron deficiency anemia. H and H are stable. Transfuse of less bryson n 7. We will continue to monitor. 13.Essential hypertension, stable, on home medications. 14.Recent bilateral tibial fracture status post open reduction and internal fixation on the left. T he patient is taking oral antibiotics prophylactically. 15.Gastrointestinal and deep venous thrombosis prophylaxis addressed. SA/MODL Voice ID: [id number] Report ID: [id number]
[2018-03-04] MEDS: ENOXAPARIN 30 MG/0.3 ML SQ SCH (16:37)
--- NOTE | 2018-03-04 16:37 | PN ---
Date of Progress Note: 03/04/2018 NEPHROLOGY PROGRESS NOTE Subjective: The patient is at bedside, no events reported. The patient was unable to give me review of systems because she appears to be tachypneic and unable to catch her breath. Objective: Vital Signs: Blood pressure 147/72, pulse 83, temperature 98.4. Her blood pressure has been elevated in the 160s to 180s range. General: Elderly, cachectic, and not tachypneic. Heart: Regular rate and rhythm. No murmurs. Has gallops. Lungs: Poor air entry. Abdomen: Soft, nontender, nondistended. Extremities: No significant edema. Laboratory Data: Sodium 140, potassium 4.4, chloride 107, CO2 of 24, BUN 63, creatinine 2.1, albumin is 2.7. CBC was reviewed. Medications: Current medications were noted. The patient is on half NS at 100 mL/h. Impression: 1.Acute kidney injury, likely secondary to volume depletion. 2.Electrolyte abnormalities. 3.Acute chronic obstructive pulmonary disease exacerbation. 4.Chronic kidney disease, 4. Plan: I will resume BiPAP therapy. Continue IV fluids until the patient is able to maintain adequat e p.o. intake, at that point, decrease rate to 50 mL/h for maintenance. Amlodipine has been increased to 10 mg daily. Avoid NSAIDs. Avoid contrast. We will continue to follow. SE/MODL Voice ID: [id number] Report ID: [id number]
[2018-03-04] MEDS: TRAZODONE 150 MG TAB PO SCH (19:43)
[2018-03-04] MEDS: predniSONE 20 MG TAB PO SCH (20:36)
[2018-03-04] MEDS ORDERED: LORAZEPAM 0.5 MG TABLET PO ONE (23:35)
[2018-03-05] MEDS: CARVEDILOL 25 MG TAB PO SCH ×2 (05:39→17:06)
[2018-03-05 06:42] LABS: Absolute Lymphocytes (CBC) 0.5 K/uL (0.7-4.9); Absolute Monocytes 0.1 K/uL (0.1-1.3); Absolute Neutrophil 7.2 K/uL (1.8-8.0); Basophils % 0.7 % (0-1.3); Hematocrit 23.8 % (36.0-45.0); Lymphocytes % 6.7 % (15.3-44.8); MCH 31.3 pg (27.0-35.0); MCV 93.6 fL (80-100); MPV 7.8 fL (7.6-11.3); Monocytes % 1.2 % (3.3-12.3); RBC Red Blood Cell Count 2.55 M/uL (3.86-4.86)
[2018-03-05 06:59] LABS: Albumin 2.8 g/dL (3.4-5.0); Bilirubin Total 0.2 mg/dL (0.2-1.0); Potassium 4.7 mmol/L (3.5-5.1); Protein, Total 6.1 g/dL (6.4-8.2)
[2018-03-05] MEDS: PANTOPRAZOLE 40MG TABLET PO SCH (07:38)
[2018-03-05] MEDS: LORAZEPAM 0.5 MG TABLET PO SCH (07:38)
[2018-03-05] MEDS: MAGNES/ALUMIN/SIMET 30ML UCUP PO SCH (08:24)
[2018-03-05] MEDS: CEFTRIAXONE/SWI 1gm 1 GM/10 ML SYR IVP SCH (08:24)
[2018-03-05] MEDS: AZITHROMYCIN IV 500 MG in NA CHLORIDE 0.9% 250 ML IVPB SCH (08:24)
[2018-03-05] MEDS: LACTOBACILLUS/ACIDOPHILUS TAB PO SCH ×2 (08:25→19:44)
[2018-03-05] MEDS: DOCUSATE NA 100 MG CAP PO SCH ×2 (08:25→19:45)
[2018-03-05] MEDS: AMLODIPINE 10 MG TAB PO SCH (08:25)
[2018-03-05] MEDS: ASPIRIN 81 MG CHEWABLE TABLET PO SCH (08:26)
[2018-03-05] MEDS: predniSONE 20 MG TAB PO SCH ×2 (08:26→19:44)
[2018-03-05] MEDS: GABAPENTIN 100 MG CAP PO SCH ×2 (08:26→19:44)
[2018-03-05] MEDS: DOXAZOSIN 2 MG TAB PO SCH ×2 (08:26→19:43)
[2018-03-05] MEDS: AMOX/K CLAV 500 MG TAB PO SCH (08:26)
[2018-03-05] MEDS: SENOSIDES 8.6 MG TAB PO SCH (08:27)
[2018-03-05] MEDS: MAGNESIUM HYDROXIDE 8% 30 ML PO SCH (08:27)
[2018-03-05] MEDS: BISACODYL E.C. 5 MG TAB PO SCH (08:27)
[2018-03-05] MEDS: SUPLENA IMPAIRED RENAL 237 ML CAN PO SCH (08:28)
[2018-03-05] MEDS: CETIRIZINE HCL 5 MG TABLET PO SCH (08:30)
[2018-03-05] MEDS: SERTRALINE HCL 50 MG TAB PO SCH (08:30)
[2018-03-05 09:27] LABS: Anisocytosis 1+; Basophilic Stippling 1+; Blood Morphology Comment NOTED (NOT SEEN); Macrocytosis 1+; Platelet Estimate ADEQ; Urine White Blood Cell Casts OK
--- NOTE | 2018-03-05 10:32 | P.CNS ---
Date of Consult: 03/05/18 Reason for Consult: Respiratory failure abnormal chest x-ray Chief Complaint: Dyspnea History of Present Illness: Patient is 62 years of age well known to me with a history of severe COPD admitted with progressive dyspnea patient is currently on BiPAP unable to talk was admitted with hypoxic hypercapnia chest x-ray shows significant opacification of the right hemithorax suggestive of pleural effusion denies any fever chills or chest pain care home resident patient has some renal insufficiency and anemia Allergies losartan [From Cozaar] Allergy (Severe, Verified 10/18/17 05:11) kidney injury clindamycin Allergy (Intermediate, Verified 10/18/17 05:11) Itching/Hives/Rash clonidine Allergy (Verified 10/18/17 10:40) Unknown sulfamethoxazole [From Bactrim] Allergy (Verified 10/18/17 05:11) Unknown trimethoprim [From Bactrim] Allergy (Verified 10/18/17 05:11) Unknown Home Medications: Amlodipine [Norvasc*] 5 mg PO DAILY tab 11/08/17 Aspirin Chewable [Aspirin Chewable*] 81 mg PO DAILY tab.chew 11/08/17 Carvedilol [Coreg*] 25 mg PO BID 6AM 6PM tab 11/08/17 Cetirizine HCl [Zyrtec*] 10 mg PO DAILY tablet 11/08/17 Cholecalciferol (Vitamin D3) [Vitamin D 5,000 IU Cap*] 5,000 unit PO DAILY cap 11/08/17 Docusate [Colace Cap*] 100 mg PO BID cap 11/08/17 Trazodone [Desyrel*] 150 mg PO BEDTIME #0 tab 11/08/17 traMADol HCL [Ultram*] 100 mg PO Q4H PRN #90 tab 11/08/17 Acetaminophen [Acetaminophen Extra Strength] 325 mg PO Q4H 03/02/18 Albuterol Sulfate [Proair Hfa] 2 puff IH Q6H 03/02/18 Amox/Clavulanate [Augmentin 500-125 mg Tab] 500 mg PO DAILY 03/02/18 Bisacodyl [Dulcolax] 10 mg PO DAILY 03/02/18 Doxazosin [Cardura*] 1 mg PO DAILY 03/02/18 Esomeprazole Magnesium [Nexium 24Hr] 20 mg PO DAILY 03/02/18 Gabapentin [Neurontin] 100 mg PO BID 03/02/18 Hydralazine [Apresoline*] 25 mg PO TID 03/02/18 Hydrocodone/Acetaminophen [[place] 5-325 Tablet] 1 each PO Q8H 03/02/18 LORazepam [Ativan] 0.5 mg PO DAILY 03/02/18 Lactobacillus Acidophilus [Acidophilus] 1 each PO BID 03/02/18 Mag Hydrox/Al Hydrox/Simeth [Maalox Maximum Strength Susp] 30 ml PO DAILY Mag Hydroxide 8% [Milk Of Magnesia] 30 ml PO DAILY 03/02/18 Sennosides 2 tab PO DAILY 03/02/18 Sertraline [Zoloft] 50 mg PO DAILY 03/02/18 Umeclidinium Brm/Vilanterol Tr [Anoro Ellipta 62.5-25 Mcg INH] 1 each IH DAILY 03/02/18 - Past Medical/Surgical History Diabetic: No -: COPD oxygen-dependent -: Chronic renal disease -: Hypertension -: GERD -: Depression with things -: Hyperlipidemia -: Carotid arterial disease -: Allergic rhinitis -: Colon polyps -: Neuropathy -: Tobacco abuse -: MYALGIAS -: Colin hip replacements -: -: Tonsillectomy Psychosocial/ Personal History: Patient is currently living at home with her daughter - Family History Father Medical History: Heart disease, Hypertension, Cancer Notes: lung ca - Social History Smoking Status: Current every day smoker Alcohol use: No CD- Drugs: No Caffeine use: No Place of Residence: [place] Review of Systems 10-point ROS is otherwise unremarkable General: Weakness Respiratory: Shortness of Breath Physical Examination Temp Pulse Resp BP Pulse Ox 99.3 F 85 22 H 181/88 H 96 03/05/18 08:00 03/05/18 08:26 03/05/18 08:00 03/05/18 08:26 03/05/18 08:00 General: Alert, Oriented x3 HEENT: Atraumatic Neck: Supple Respiratory: Diminished (Markedly diminished air entry at the right base left lung shows some rhonchi) Cardiovascular: No edema, Regular rate/rhythm, Normal S1 S2 Gastrointestinal: Normal bowel sounds, Soft and benign - Problems (1) Abnormal chest x-ray Current Visit: Yes Status: Acute Plan: Patient is 62 years of age with a history of COPD admitted with worsening dyspnea she has opacification of the right lower 2/3 of her lung most likely a pleural effusion of ordered a CT scan of the chest patient is only mildly hypercapnic should be able to tolerate O2 nasal cannula DT scan to be done without contrast as patient has renal insufficiency continue with bronchodilators treasury diagnosis includes infection or cancer hemoglobin remains stable was little low continue with BiPAP maximum bronchodilator therapy Dc current antibiotics change to Zosyn probably the need thoracentesis tomorrow Dc Lovenox I have added some bronchodilator blood pressure is little Aidee
[2018-03-05] MEDS: ARFORMOTEROL TARTRATE 15 MCG/2 ML VIAL.NEB NEB SCH ×2 (10:33→19:18)
[2018-03-05 11:47] LABS: Protime INR 1.03
[2018-03-05] MEDS: HYDRALAZINE HCL 20 MG/ML VIAL IV PRN (11:49)
[2018-03-05] MEDS: TRAMADOL HCL 50 MG TAB PO PRN ×2 (11:52→19:42)
[2018-03-05] MEDS: NACHLORIDE 0.45% 1,000 ML IV SCH (12:25)
[2018-03-05] MEDS: PIPER/TAZO/NS 2.25gm 2.25 GM/50 ML BAG IVPB SCH ×2 (12:26→17:53)
--- NOTE | 2018-03-05 13:09 | RAD REPORT ---
EXAM DESCRIPTION: CT - Thorax Wo Con - 03/05/2018 12:02 pm CLINICAL HISTORY: Right-sided pleural effusion, pneumonia, COPD history, hypoxemia COMPARISON: Chest exam March 02, CT chest January 08 TECHNIQUE: Axial 5 mm thick images of the chest were obtained without IV contrast. All CT scans are performed using dose optimization technique as appropriate and may include automated exposure control or mA/KV adjustment according to patient size. FINDINGS: Left lung field is clear. Minimal scarring changes are present. No left-sided pleural effu donna, pleural thickening or pneumothorax. Large right pleural effusion is present occupying approximately 50% of the right hemithorax. There is near complete atelectasis of the right lower lobe and complete atelectasis of the right middle lobe. Interstitial and alveolar opacities are present in the posterior right upper lobe and throughout the limited aerated right lower lobe. In the posteromedial right lung base there is a 4 centimeter parenchymal density abutting the pleura. This is discrete from adjacent atelectatic lung (image 42/67). No pneumothorax. In the posterior mid right lung field there is a focal parenchymal density 4 cm in size (image 32/67). The pleural effusion shows numerous areas of lobulated contour suggesting at least partial loculation of the pleural fluid. No abnormal mediastinal or hilar masses or lymphadenopathy seen. No gross aortic or pulmonary artery finding suspected. Assessment is limited in the absence of IV contrast. No chest wall mass or abnormal axillary lymphadenopathy. IMPRESSION: Large right pleural effusion partially loculated with right middle lobe atelectasis and significant right lower lobe atelectasis. Masslike densities in the posteromedial lower right lung field and posterior right midlung field poss ibly representing pleural based masses. Interstitial and alveolar opacities in the posterior right upper lobe and right lower lobe suspicious for pneumonia.
[2018-03-05] MEDS: IPRATROPIUM BROM 0.5MG/2.5ML NEB SCH ×2 (13:57→19:18)
[2018-03-05] MEDS ORDERED: LORAZEPAM 0.5 MG TABLET PO ONE (14:22)
--- NOTE | 2018-03-05 19:06 | PN ---
Date of Progress Note: 03/05/2018 Subjective: The patient was seen and examined. Chart reviewed and case discussed with RN and Dr. Aleksander flowers. The patient is not doing well. Has continued respiratory distress requiring BiPAP pretty mu ch throughout the day and night. Unable to really hold a conversation without getting very dyspneic. Review of Systems: Negative except as above. Medications: List reviewed. Physical Examination: Vital Signs: Temperature 98.2, heart rate 91, blood pressure 169/67, respirations 20, O2 90% on BiPA P at 30% FiO2. General: Awake, alert, oriented x3, in moderate respiratory distress. Appears older than stated age . Frail, cachectic female. BMI 18. Ill-appearing. CV: S1, S2. Regular rate and rhythm. Peripheral pulses present. Respiratory: Diminished breath sounds especially at the right base, some rales heard and wheezing. No stridor. The patient is tachypneic. Gastrointestinal: Abdomen is soft, nontender, nondistended. Positive bowel sounds. No guarding or rigidity. Extremities: No clubbing, cyanosis, edema. Neurologic: Nonfocal. Laboratory Data: Sodium 134, potassium 4.7, chloride 103, CO2 17, BUN 56, creatinine 1.8, glucose 74 , calcium 7.8, albumin 2.8. WBC 8, H and H 8 and 23.8, platelets 227. Neutrophils 89.4%. Blood cul tures, no growth to date. CT scan of the chest shows large right pleural effusion partially loculate d with right middle lobe atelectasis and significant right lower lobe atelectasis, masslike densities in the posteromedial and lower right lung field and posteromedial right mid lung field, possibly rep resenting pleural-based masses. Interstitial and alveolar opacities in the posterior right upper lob e and right lower lobe suspicious for pneumonia. Assessment And Plan: A 62-year-old female with: 1.Acute respiratory failure requiring BiPAP throughout the day secondary to chronic obstructive pulm onary disease, pleural effusion. 2.Acute metabolic encephalopathy secondary to sepsis, CO2 narcosis, improving. 3.Sepsis. White count finally normalized secondary to pneumonia. Cultures negative to date. Flory nue antibiotics and switched over to Zosyn. 4.Large right-sided pleural effusion. We will need thoracentesis. Appreciate Dr. Verma's input. 5.Right-sided pneumonia, possible aspiration. The patient switched to mechanical soft diet. 6.Acute and chronic kidney injury stage 4. Creatinine improving. Appreciate Nephrology input. Con tinue to monitor. Avoid nephrotoxins and NSAIDs. Continue with IV fluid hydration. 7.Hyperkalemia, corrected. Continue to monitor potassium level. 8.Chronic obstructive pulmonary disease with mild exacerbation, p.o. steroids have been added. 9.Chronic respiratory failure. The patient is O2 dependent. 10.Gastroesophageal reflux disease without esophagitis. Continue PPI. 11.Neuropathy. Gabapentin. 12.Generalized anxiety disorder. The patient continues to feel anxious, likely due to air hunger fr om her respiratory distress. We will continue benzodiazepines. Avoid withdrawal symptoms. 13.Anemia of chronic disease as well as iron deficiency anemia. Monitor H and H, transfuse as neede d. We will monitor. 14.Essential hypertension, not well controlled. Medications have been adjusted. Amlodipine added. We will continue IV p.r.n. medications. 15.Recent bilateral tibial fracture status post ORIF on the left lower extremity. The patient is on prophylactic antibiotics, currently covered with Zosyn. 16.Gastrointestinal and deep venous thrombosis prophylaxis addressed. Hold Lovenox for procedure in a.m. /MODL Voice ID: [id number] Report ID: [id number]
[2018-03-05] MEDS: TRAZODONE 150 MG TAB PO SCH (19:43)
[2018-03-05] MEDS: SODIUM BICARB 325 MG TAB PO SCH (19:44)
[2018-03-06] MEDS: PIPER/TAZO/NS 2.25gm 2.25 GM/50 ML BAG IVPB SCH ×2 (00:34→10:23)
[2018-03-06] MEDS: HYDRALAZINE HCL 20 MG/ML VIAL IV PRN (00:36)
[2018-03-06] MEDS: IPRATROPIUM BROM 0.5MG/2.5ML NEB SCH ×3 (01:39→13:50)
[2018-03-06] MEDS: CARVEDILOL 25 MG TAB PO SCH (05:47)
[2018-03-06 06:00] LABS: Absolute Lymphocytes (CBC) 0.4 K/uL (0.7-4.9); Absolute Monocytes 0.1 K/uL (0.1-1.3); Absolute Neutrophil 5.6 K/uL (1.8-8.0); Basophils % 0.6 % (0-1.3); Eosinophils % 0.8 % (0-4.4); MCH 31.4 pg (27.0-35.0); MCV 94.3 fL (80-100); MPV 7.4 fL (7.6-11.3); Monocytes % 1.8 % (3.3-12.3); RBC Red Blood Cell Count 2.33 M/uL (3.86-4.86)
[2018-03-06 06:19] LABS: Albumin 2.7 g/dL (3.4-5.0); Bilirubin Total 0.3 mg/dL (0.2-1.0); Potassium 5.1 mmol/L (3.5-5.1); Protein, Total 6.1 g/dL (6.4-8.2)
[2018-03-06] MEDS: ARFORMOTEROL TARTRATE 15 MCG/2 ML VIAL.NEB NEB SCH (08:36)
[2018-03-06] MEDS ORDERED: Pharmacy Consult 1 EA XX PRN (08:44)
[2018-03-06] MEDS: SUPLENA IMPAIRED RENAL 237 ML CAN PO SCH (09:00)
[2018-03-06] MEDS ORDERED: VITAMIN D 5,000 UNIT CAP PO SCH (09:00)
[2018-03-06] MEDS ORDERED: CALCITROL 0.25 MCG CAP PO SCH (09:00)
[2018-03-06 09:52] VITALS: TEMP 99.6
[2018-03-06] MEDS ORDERED: VANCOMYCIN 1.25 GM in NA CHLORIDE 0.9% 250 ML IVPB ONE (10:00)
[2018-03-06] MEDS: MAGNESIUM HYDROXIDE 8% 30 ML PO SCH (10:18)
[2018-03-06] MEDS: MAGNES/ALUMIN/SIMET 30ML UCUP PO SCH (10:18)
[2018-03-06] MEDS: LORAZEPAM 0.5 MG TABLET PO SCH (10:19)
[2018-03-06] MEDS: GABAPENTIN 100 MG CAP PO SCH (10:19)
[2018-03-06] MEDS: PANTOPRAZOLE 40MG TABLET PO SCH (10:19)
[2018-03-06] MEDS: CETIRIZINE HCL 5 MG TABLET PO SCH (10:19)
[2018-03-06] MEDS: AMLODIPINE 10 MG TAB PO SCH (10:19)
[2018-03-06] MEDS: predniSONE 20 MG TAB PO SCH (10:20)
[2018-03-06] MEDS: SODIUM BICARB 325 MG TAB PO SCH (10:20)
[2018-03-06] MEDS: DOCUSATE NA 100 MG CAP PO SCH (10:20)
[2018-03-06] MEDS: SENOSIDES 8.6 MG TAB PO SCH (10:20)
[2018-03-06] MEDS: BISACODYL E.C. 5 MG TAB PO SCH (10:20)
[2018-03-06] MEDS: LACTOBACILLUS/ACIDOPHILUS TAB PO SCH (10:21)
[2018-03-06] MEDS: DOXAZOSIN 2 MG TAB PO SCH (10:21)
[2018-03-06] MEDS: SERTRALINE HCL 50 MG TAB PO SCH (10:21)
[2018-03-06] MEDS: ASPIRIN 81 MG CHEWABLE TABLET PO SCH (10:21)
[2018-03-06] MEDS ORDERED: FUROSEMIDE 20 MG/ 2ML VIAL IV SCH (12:44)
[2018-03-06 12:46] VITALS: O2SAT 99
--- NOTE | 2018-03-06 12:46 | P.PN ---
Subjective Date of Service: 03/06/18 Chief Complaint: Pleural effusion respiratory failure Patient's condition is no change she is still requiring BiPAP very tachypneic significant desaturation DT scan shows a multi loculated effusion on the right side Review of Systems General: Weakness Respiratory: Shortness of Breath Physical Examination - Vital Signs Temperature: 99.6 F Blood Pressure: 193/82 Pulse: 87 Respirations: 14 Pulse Ox (%): 96 - Physical Exam General: Alert, Cooperative Respiratory: Diminished (On the right side), Dull Cardiovascular: No edema, Normal S1 S2 Assessment & Plan - Problems (Diagnosis) (1) Pleural effusion Current Visit: Yes Status: Acute Plan: Patient is 62 years of age admitted with respiratory failure underlying COPD she has a multi loculated pleural effusion on the right side I have also added vancomycin continue with Zosyn recommend transfer to a tertiary care center for a vats procedure unable to wean off the BiPAP patient has renal insufficiency most likely volume overload also hypertensive on multiple antihypertensive treatment I have also added some Lasix patient is also mildly anemic no evidence of bleeding she is probably going to require 1 unit of blood transfusion prior to surgery patient is on 30% oxygen stable to be transferred
[2018-03-06 13:27] VITALS: BP 162/78
--- NOTE | 2018-03-07 05:47 | DS ---
Date of Discharge: 03/06/2018 Consultants: Dr. Verma with Pulmonology, Dr. Holcomb with Nephrology. Admitting Diagnoses: 1.Sepsis. 2.Right-sided pneumonia. 3.Recent bilateral tibial fracture, status post open reduction and internal fixation on the left wit h subsequent infection and prophylactic treatment with oral antibiotics with Augmentin. 4.Gastroesophageal reflux disease without esophagitis. 5.Hyperkalemia. 6.Neuropathy. 7.Anemia of chronic disease and iron deficiency. 8.Ozkpk-au-qzyfrbk kidney injury, stage 4. 9.Essential hypertension. 10.Chronic obstructive pulmonary disease, chronic bronchitis with respiratory failure. 11.Acute metabolic encephalopathy. Discharge Diagnoses: 1.Sepsis. 2.Acute metabolic encephalopathy, improving. 3.Acute respiratory failure, requiring BiPAP. 4.Large right-sided pleural effusion with loculations. 5.Right-sided pneumonia, possible aspiration. 6.Nrpan-mb-mqihabr kidney injury, stage 4, improving. 7.Hyperkalemia, corrected. 8.Chronic obstructive pulmonary disease with mild exacerbation. 9.Chronic respiratory failure. The patient on O2 at home. 10.Gastroesophageal reflux disease without esophagitis. 11.Neuropathy. 12.Generalized anxiety disorder, on chronic benzodiazepines. 13.Anemia of chronic disease and iron deficiency anemia. 14.Essential hypertension, not well controlled. 15.Recent bilateral tibial fracture, status post open reduction and internal fixation of the left lo wer extremity, on prophylactic antibiotics with Augmentin. Hospital Course: The patient is a 62-year-old female, who was admitted to the hospital for shortness of breath and confusion. The patient was found to have CO2 narcosis. Her ABG showed hypercapnia. She was desaturating in the 80s. The patient was started on BiPAP. She was also found to be septic. She had elevated white count 15,000 with left shift. Procalcitonin was elevated at 1.6. Her sourc e of infection was pneumonia, which was found on imaging studies on the right side. Aspiration was c onsideration due to her decreased mental status and Speech Therapy evaluated the patient and her diet was modified. The patient initially did well, her white count improved, and she woke up. Mental st atus cleared, however, continued to be very short of breath. Pulmonology was consulted. She was sta rted on steroids and breathing treatments. She did require BiPAP and was requiring BiPAP throughout the day. CT scan was done which showed a large right-sided pleural effusion which was loculated. Pu lmonology recommended thoracentesis; however, due to the loculation found on CT, the patient will req uire VATS and therefore was referred to [facility] for cardiothoracic surgery and higher [facility] of care. The patient also seen by her machine sizer. Her creatinine did remain stable. Her other electrolyte abnormalities were corrected. The patient overall has a guarded prognosis due to her co ndition, will be transferred to [facility] for higher level of care for VATS procedure due to the loculated right pleural effusion. The patient was then transferred in a stable condition . Physical Examination: General: Awake, alert, oriented x3. Some moderate respiratory distress. Ill-appearing female. CV: S1, S2. Peripheral pulses present. Respiratory: Diminished breath sounds. Wheezing heard. Gastrointestinal: Abdomen is soft, nontender, nondistended. Positive bowel sounds. Extremities: No clubbing, cyanosis, edema. Neurologic: Nonfocal. Total time spent transferring the patient was 37 minutes. /AZALEA Voice ID: [id number] Report ID: [id number]
[2018-03-07] MEDS ORDERED: VANCOMYCIN 750 MG in NA CHLORIDE 0.9% 150 ML IV SCH (22:00)
== END 2018-03-06 15:21 | disposition short-term general hospital (02) | DRG 871 ==
LOC: ER 10:57 → ERHOLD 12:45 → 4TH 14:43
PROVIDERS: ADMIT Family Medicine; ATTEND Family Medicine
PROC: 5A09457 Assistance with Respiratory Ventilation, 24-96 Consecutive Hours, Continuous Positive Airway Pressure (ICD-10-PCS; principal; 2018-03-02)
DX: A41.9 Sepsis, unspecified organism (principal); J69.0 Pneumonitis due to inhalation of food and vomit; G93.41 Metabolic encephalopathy; J96.22 Acute and chronic respiratory failure with hypercapnia; J96.21 Acute and chronic respiratory failure with hypoxia; N17.9 Acute kidney failure, unspecified; J44.0 Chronic obstructive pulmonary disease with (acute) lower respiratory infection; J44.1 Chronic obstructive pulmonary disease with (acute) exacerbation; J90 Pleural effusion, not elsewhere classified; N18.4 Chronic kidney disease, stage 4 (severe); I13.0 Hypertensive heart and chronic kidney disease with heart failure and stage 1 through stage 4 chronic kidney disease, or unspecified chronic kidney disease; I50.32 Chronic diastolic (congestive) heart failure; R65.20 Severe sepsis without septic shock; E87.5 Hyperkalemia; K21.9 Gastro-esophageal reflux disease without esophagitis; F41.1 Generalized anxiety disorder; G62.9 Polyneuropathy, unspecified; D63.8 Anemia in other chronic diseases classified elsewhere; D50.9 Iron deficiency anemia, unspecified; Z88.1 Allergy status to other antibiotic agents; Z88.8 Allergy status to other drugs, medicaments and biological substances; Z99.81 Dependence on supplemental oxygen; E78.5 Hyperlipidemia, unspecified; Z96.643 Presence of artificial hip joint, bilateral; F17.210 Nicotine dependence, cigarettes, uncomplicated; R80.8 Other proteinuria; E87.8 Other disorders of electrolyte and fluid balance, not elsewhere classified; F32.9 Major depressive disorder, single episode, unspecified
CPT/HCPCS: 36415; 71045; 71250; 80048; 80053; 81001; 82043; 82274; 82570; 82805; 83605; 83735; 83880; 84100; 84145; 84300; 84550; 85014; 85018; 85025; 85610; 87040; 87804; 93005; 94640; 94660; 94760; 96365; 96375; 99285; J0360; J0456; J0696; J1650; J1940; J2930; J7512; J7605

== ENCOUNTER 2018-03-15 15:16 | Inpatient (IN) | payer OTHER ==
--- OUTSIDE RECORDS SUMMARY | 2018-03-15 15:18 | XMS REPORT | Clinical Summary ---
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..] CDT procedure are in the results section. DC AN ELECTIVE Routine 12/02/2017 2:19 ENDOTRACHEAL AIRWAY PM CDT Procedure Note - Norm Whitehead CRNA - 12/02/2017 2:19 PM CDT Airway Date/Time: 12/02/2017 1:34 PM Performed by: NORM WHITEHEAD Authorized by: ZIGGY STOREY Location: OR Urgency: Elective Difficult Airway: No Performed by: resident/AVIONICS SYSTEMS INTEGRATION SPECIALIST/AA Preoxygenated with 100% O2: Yes C-spine Precautions [...] 1 HOUR Routine 11/29/2017 3:45 PM CDT DC AN ELECTIVE ENDOTRACHEAL Routine 11/29/2017 2:58 PM CDT AIRWAY Procedure Note - Richie Finnegan CRNA - 11/29/2017 2:58 PM CDT Airway Date/Time: 11/29/2017 2:53 PM Performed by: RICHIE FINNEGAN Authorized by: ALTAGRACIA FUNG Location: OR Urgency: Elective Difficult Airway: No Resident/AVIONICS SYSTEMS INTEGRATION SPECIALIST/AA: RICHIE FINNEGAN Performed by: resident/AVIONICS SYSTEMS INTEGRATION SPECIALIST/AA Preoxygenated with 100% O2: Yes C-spine Precautions [...] 4 Routine 11/25/2017 12:24 PM CDT after 03/14/2017 Results Transfuse RBC (01/18/2018 5:56 PM)Only the most recent of2 resultswithin the time period is included.CBC with platelet and differential (12/07/2017 4:00 AM) Only the most recent of9 resultswithin the time period is included. WBC 5.91 4.50 - 11.00 k/uL [facility] DEPARTMENT OF PATHOLOGY AND GENOMIC MEDICINE RBC 2.74 (L) 4.20 - 5.50 m/uL [facility] DEPARTMENT OF PATHOLOGY AND GENOMIC MEDICINE HGB 8.4 (L) 12.0 - 16.0 g/dL [facility] DEPARTMENT OF PATHOLOGY AND GENOMIC MEDICINE HCT 26.4 (L) 37.0 - 47.0 % [facility] DEPARTMENT OF PATHOLOGY AND GENOMIC MEDICINE MCV 96.4 82.0 - 100.0 fL [facility] DEPARTMENT OF PATHOLOGY AND GENOMIC MEDICINE MCH 30.7 27.0 - 34.0 pg [facility] DEPARTMENT OF PATHOLOGY AND GENOMIC MEDICINE MCHC 31.8 31.0 - 37.0 g/dL [facility] DEPARTMENT OF PATHOLOGY AND GENOMIC MEDICINE RDW - SD 55.1 (H) 37.0 - 55.0 fL [facility] DEPARTMENT OF PATHOLOGY AND GENOMIC MEDICINE MPV 9.8 8.8 - 13.2 fL [facility] DEPARTMENT OF PATHOLOGY AND GENOMIC MEDICINE Platelet count 151 150 - 400 k/uL [facility] DEPARTMENT OF PATHOLOGY AND GENOMIC MEDICINE Nucleated RBC 0.50 /100 WBC [facility] DEPARTMENT OF PATHOLOGY AND GENOMIC MEDICINE Neutrophils 67.8 39.0 - 69.0 % [facility] DEPARTMENT OF PATHOLOGY AND GENOMIC MEDICINE Lymphocytes 16.2 (L) 25.0 - 45.0 % [facility] DEPARTMENT OF PATHOLOGY AND GENOMIC MEDICINE Monocytes 6.9 0.0 - 10.0 % [facility] DEPARTMENT OF PATHOLOGY AND GENOMIC MEDICINE Eosinophils 8.0 (H) 0.0 - 5.0 % [facility] DEPARTMENT OF PATHOLOGY AND GENOMIC MEDICINE Basophils 0.8 0.0 - 1.0 % [facility] DEPARTMENT OF PATHOLOGY AND GENOMIC MEDICINE Immature granulocytes 0.3Comment: 0.0 - 1.0 % [facility] DEPARTMENT OF "Immature PATHOLOGY AND GENOMIC granulocytes" MEDICINE (promyelocytes, myelocytes, metamyelocytes) Specimen Blood Performing Organization Address City/[facility]/Zipcode Phone Number [facility] DEPARTMENT OF PATHOLOGY AND [address] [place] [phone] GENOMIC MEDICINE Prepare RBC, 1 Units (12/06/2017 2:47 PM)Only the most recent of3 resultswithin the time period is included. Product name Red Blood Cells -1, [facility] DEPARTMENT OF Leukored PATHOLOGY AND GENOMIC MEDICINE Unit number [id number] [facility] DEPARTMENT OF PATHOLOGY AND GENOMIC MEDICINE Product code [id number] [facility] DEPARTMENT OF PATHOLOGY AND GENOMIC MEDICINE Dispense status Transfused [facility] DEPARTMENT OF PATHOLOGY AND GENOMIC MEDICINE Blood expiration date [facility] DEPARTMENT OF PATHOLOGY AND GENOMIC MEDICINE Blood type code 9500 [facility] DEPARTMENT OF PATHOLOGY AND GENOMIC MEDICINE Blood type O NEGATIVE [facility] DEPARTMENT OF PATHOLOGY AND GENOMIC MEDICINE Performing Organization Address City/[facility]/Zipcode Phone Number [facility] DEPARTMENT PATHOLOGY AND [address] [place] [phone] GENOMIC MEDICINE Type and screen (12/06/2017 2:47 PM)Only the most recent of2 resultswithin the time period is included. ABO grouping O [facility] DEPARTMENT OF PATHOLOGY AND GENOMIC MEDICINE Rh type NEG [facility] DEPARTMENT OF PATHOLOGY AND GENOMIC MEDICINE Antibody screen (gel) NEG [facility] DEPARTMENT OF PATHOLOGY AND GENOMIC [facility] Specimen Blood Performing Organization Address City/[facility] Phone Number [facility] DEPARTMENT OF PATHOLOGY AND [address] [place] [address] Hemoglobin & hematocrit (12/06/2017 10:02 AM)Only the most recent of2 resultswithin the time period is included. HGB 7.4 (L) 12.0 - 16.0 g/dL [facility] DEPARTMENT OF PATHOLOGY AND GENOMIC MEDICINE HCT 23.8 (L) 37.0 - 47.0 % [facility] DEPARTMENT OF PATHOLOGY AND GENOMIC [facility] Specimen Blood Performing Organization Address [facility] Phone Number [facility] DEPARTMENT OF PATHOLOGY AND [address] [place] [address] Estimated GFR (12/06/2017 3:16 AM)Only the most recent of13 resultswithin the time period is included. GFR Non Af Amer 27 (A) mL/min/1.73 m2 [facility] DEPARTMENT OF PATHOLOGY AND GENOMIC MEDICINE GFR Af Amer 33 (A) mL/min/1.73 m2 [facility] DEPARTMENT OF Comment: PATHOLOGY AND GENOMIC [...] Americans. Specimen Plasma specimen Performing Organization Address City/[facility] Phone Number [facility] DEPARTMENT OF PATHOLOGY AND [address] [place] [address] Creatine kinase, total (CPK) (12/06/2017 3:16 AM)Only the most recent of2 resultswithin the time period is included. Creatine kinase 43 26 - 192 U/L [facility] DEPARTMENT OF PATHOLOGY AND [facility] MEDICINE Specimen Plasma specimen Performing Organization Address City/[facility]/Zipcode Phone Number [facility] DEPARTMENT OF PATHOLOGY AND [address] [place] [address] Basic metabolic panel (12/06/2017 3:16 AM)Only the most recent of12 resultswithin the time period is included. Sodium 140 135 - 148 mEq/L [facility] DEPARTMENT OF PATHOLOGY AND GENOMIC MEDICINE Potassium 5.0 3.5 - 5.0 mEq/L [facility] DEPARTMENT OF PATHOLOGY AND GENOMIC MEDICINE Chloride 105 98 - 112 mEq/L [facility] DEPARTMENT OF PATHOLOGY AND GENOMIC MEDICINE CO2 27 24 - 31 mEq/L [facility] DEPARTMENT OF PATHOLOGY AND GENOMIC MEDICINE Anion gap 8@ANIO 7 - 15 mEq/L [facility] DEPARTMENT OF PATHOLOGY AND GENOMIC MEDICINE BUN 41 (H) 8 - 23 mg/dL [facility] DEPARTMENT OF PATHOLOGY AND GENOMIC MEDICINE Creatinine 1.9 (H) 0.5 - 0.9 mg/dL [facility] DEPARTMENT OF PATHOLOGY AND GENOMIC MEDICINE Glucose 82 65 - 99 mg/dL [facility] DEPARTMENT OF PATHOLOGY AND GENOMIC MEDICINE Calcium 8.2 (L) 8.8 - 10.2 mg/dL [facility] DEPARTMENT OF PATHOLOGY AND GENOMIC MEDICINE Specimen Plasma specimen Performing Organization Address City/[facility] Phone Number [facility] DEPARTMENT OF PATHOLOGY AND [address] [place] [address] POC glucose (12/05/2017 12:29 AM)Only the most recent of4 resultswithin the time period is included. POC glucose 95 65 - 99 mg/dL [facility] DEPARTMENT OF PATHOLOGY Comment: AND GENOMIC MEDICINE [facility] Notified RN Meter ID: [id number] Atomic Spectroscopist: Hesham Rangel Ellen Performing Organization Address [facility] Phone Number [facility] DEPARTMENT OF PATHOLOGY AND [address] [place] [address] XR Knee 1 Or 2 Vw Left [...] who repeated the findings and verbalized understanding. [facility]-[id number] Procedure Note Hm Interface, Radiology Results Incoming [...] who repeated the findings and verbalized understanding. [facility]-[id number] Performing Organization Address City/[facility]/Zipcode Phone Number [facility] [address] [place] [address] Sodium level, syringe (12/02/2017 1:57 PM) Sodium, syringe 135 135 - 148 mEq/L [facility] DEPARTMENT OF PATHOLOGY AND GENOMIC MEDICINE Specimen Blood Performing Organization Address [facility] Phone Number [facility] DEPARTMENT OF PATHOLOGY AND [address] [place] [address] Potassium, syringe (12/02/2017 1:57 PM) Potassium, syringe 5.2 (H) 3.5 - 5.0 mEq/L [facility] DEPARTMENT OF PATHOLOGY AND GENOMIC MEDICINE Specimen Blood Performing Organization Address [facility] Phone Number [facility] DEPARTMENT OF PATHOLOGY AND [address] [place] [address] Lactic acid, syringe (12/02/2017 1:57 PM) Lactic acid, syringe 0.4 (L) 0.5 - 2.2 mmol/L [facility] DEPARTMENT OF PATHOLOGY AND GENOMIC MEDICINE Specimen Blood Performing Organization Address [facility] Phone Number [facility] DEPARTMENT OF PATHOLOGY AND [address] [place] [address] Ionized calcium, arterial (12/02/2017 1:57 PM) Ionized calcium, arterial 1.13 1.11 - 1.32 mmol/L [facility] DEPARTMENT OF PATHOLOGY AND GENOMIC MEDICINE Specimen Blood Performing Organization Address [facility] Phone Number [facility] DEPARTMENT OF PATHOLOGY AND [address] [place] [address] Hemoglobin, syringe (12/02/2017 1:57 PM) Hemoglobin, syringe 9.5 (L) 12.0 - 16.0 g/dL [facility] DEPARTMENT OF PATHOLOGY AND GENOMIC MEDICINE Specimen Blood Performing Organization Address [facility] Phone Number [facility] DEPARTMENT OF PATHOLOGY AND [address] [place] [address] Glucose level, syringe (12/02/2017 1:57 PM) Glucose, syringe 98 65 - 99 mg/dL [facility] DEPARTMENT OF PATHOLOGY AND GENOMIC MEDICINE Specimen Blood Performing Organization Address [facility] Phone Number [facility] DEPARTMENT OF PATHOLOGY AND [address] [place] [address] Arterial blood gas, corrected (12/02/2017 1:57 PM) pH, arterial 7.34 (L) 7.35 - 7.45 [facility] DEPARTMENT OF PATHOLOGY AND GENOMIC MEDICINE pCO2, arterial 41 35 - 45 mmHg [facility] DEPARTMENT OF PATHOLOGY AND GENOMIC MEDICINE pO2, arterial 289 (H) 80 - 90 mmHg [facility] DEPARTMENT OF PATHOLOGY AND GENOMIC MEDICINE Temperature, Celsius 36.5 Degrees C [facility] DEPARTMENT OF PATHOLOGY AND GENOMIC MEDICINE O2 saturation, arterial 100 95 - 100 % [facility] DEPARTMENT OF PATHOLOGY AND GENOMIC MEDICINE pH, arterial corrected 7.35 [facility] DEPARTMENT OF PATHOLOGY AND GENOMIC MEDICINE pCO2, arterial corrected 40 mmHg [facility] DEPARTMENT OF PATHOLOGY AND GENOMIC MEDICINE pO2, arterial corrected 287 mmHg [facility] DEPARTMENT OF PATHOLOGY AND GENOMIC MEDICINE Base excess, arterial -3 (L) -2 - 2 mEq/L [facility] DEPARTMENT OF PATHOLOGY AND GENOMIC MEDICINE Specimen Blood Performing Organization Address [facility] Phone Number [facility] DEPARTMENT OF PATHOLOGY AND [address] [place] [address] Magnesium level (12/02/2017 1:57 PM)Only the most recent of2 resultswithin the time period is included. Magnesium 2.3 1.6 - 2.4 mg/dL [facility] DEPARTMENT OF PATHOLOGY AND GENOMIC MEDICINE Specimen Plasma specimen Performing Organization Address [facility] Phone Number [facility] DEPARTMENT PATHOLOGY AND [address] [place] [address] CT Head Wo Contrast (12/01/2017 2:23 PM) [...] involutional changes. No focal acute intracranial abnormalities. [facility]-[id number] Procedure Note Hm Interface, Radiology Results Incoming [...] involutional changes. No focal acute intracranial abnormalities. [facility]-[id number] Performing Organization Address City/State/Zipcode Phone Number [facility] [address] [place] [address] Smear review (11/30/2017 4:48 AM) Platelet slide review Nesha slt decr [facility] DEPARTMENT OF PATHOLOGY AND GENOMIC MEDICINE Anisocytosis Moderate [facility] DEPARTMENT OF PATHOLOGY AND GENOMIC MEDICINE Polychromasia Moderate [facility] DEPARTMENT OF PATHOLOGY AND GENOMIC MEDICINE Ovalocytes Moderate [facility] DEPARTMENT OF PATHOLOGY AND GENOMIC MEDICINE Performing Organization Address City/[facility]/Zipcode Phone Number [facility] DEPARTMENT OF PATHOLOGY AND [address] [place] [phone] GENOMIC MEDICINE Phosphorus level (11/30/2017 4:48 AM)Only the most recent of3 resultswithin the time period is included. Phosphorus 3.6 2.4 - 4.5 mg/dL [facility] DEPARTMENT OF PATHOLOGY AND GENOMIC MEDICINE Specimen Plasma specimen Performing Organization Address [facility] Phone Number [facility] DEPARTMENT OF PATHOLOGY AND [address] [place] [address] GENOMIC MEDICINE XR Tibia Fibula 2 Vw Left (11/29/2017 4:56 PM) Narrative Performed At EXAMINATION:XR TIBIA FIBULA 2 VW LEFT [facility] CLINICAL HISTORY: Postoperative COMPARISON:None. FINDINGS: Plate and screw fixation of a proximal tibial fracture. There is a nondisplaced proximal fibular fracture. There are opaque pellets in the adjacent soft tissues. Alignment at the knee joint is satisfactory. IMPRESSION: As above [facility]-[id number] Procedure Note Interface, Radiology Results Incoming - 11/29/2017 5:11 PM CDT EXAMINATION: XR TIBIA FIBULA 2 VW LEFT CLINICAL HISTORY: Postoperative COMPARISON: None. FINDINGS: Plate and screw fixation of a proximal tibial fracture. There is a nondisplaced proximal fibular fracture. There are opaque pellets in the adjacent soft tissues. Alignment at the knee joint is satisfactory. IMPRESSION: As above [id number] Performing Organization Address [facility] Phone Number [facility] [address] [place] [address] XR Chest 1 Vw Portable (11/29/2017 4:48 PM) Narrative Performed At EXAMINATION:XR CHEST 1 VW PORTABLE [facility] CLINICAL HISTORY:check placement of tunneled catheter COMPARISON:None IMPRESSION: 1.Dialysis catheter tip is at the junction of the superior vena cava and right atrium. There is no pneumothorax. 2.There is some scarring and volume loss at the lung apices. 3.Heart size is at the upper limits normal. [id number] Procedure Note Interface, Radiology Results Incoming - [...] size is at the upper limits normal. [id number] Performing Organization Address [facility] Phone Number [facility] [address] [place] [address] [place] < 1 Hour (11/29/2017 3:45 [...] C-arm fluoroscopy was requested in OR. LOCATION: [facility] OR 14 PROCEDURE: C-Arm for ZARAGOZA INSERTION START TIME: 1515 END TIME: 1545 FLUORO TIME: 25 sec DOSE (mGy): 3.43 TECH(S): Ankit Traore IMPRESSION: Separate operative report will be issued by the physician performing the procedure. [id number] Performing Organization Address [facility] Phone Number [facility] [address] [place] [address] B natriuretic peptide (11/28/2017 5:00 PM)Only the most recent of2 resultswithin the time period is included. BNP 334 (H) 0 - 100 pg/mL [facility] DEPARTMENT OF PATHOLOGY AND GENOMIC MEDICINE Specimen Blood Performing Organization Address [facility] Phone Number [facility] DEPARTMENT OF PATHOLOGY AND [address] [place] [address] MEDICINE Prealbumin level (11/26/2017 4:00 AM) Prealbumin 14 (L) 16 - 32 mg/dL [facility] DEPARTMENT OF PATHOLOGY AND GENOMIC MEDICINE Specimen Serum Performing Organization Address [facility] Phone Number [facility] DEPARTMENT OF PATHOLOGY AND [address] [place] [address] GENOMIC MEDICINE Comprehensive metabolic panel (11/26/2017 4:00 AM) Sodium 134 (L) 135 - 148 mEq/L [facility] DEPARTMENT OF PATHOLOGY AND GENOMIC MEDICINE Potassium 5.8 (H) 3.5 - 5.0 mEq/L [facility] DEPARTMENT OF PATHOLOGY AND GENOMIC MEDICINE Chloride 98 98 - 112 mEq/L [facility] DEPARTMENT OF PATHOLOGY AND GENOMIC MEDICINE CO2 26 24 - 31 mEq/L [facility] DEPARTMENT OF PATHOLOGY AND GENOMIC MEDICINE Anion gap 10@ANIO 7 - 15 mEq/L [facility] DEPARTMENT OF PATHOLOGY AND GENOMIC MEDICINE BUN 64 (H) 8 - 23 mg/dL [facility] DEPARTMENT OF PATHOLOGY AND GENOMIC MEDICINE Creatinine 1.7 (H) 0.5 - 0.9 mg/dL [facility] DEPARTMENT OF PATHOLOGY AND GENOMIC MEDICINE Glucose 127 (H) 65 - 99 mg/dL [facility] DEPARTMENT OF PATHOLOGY AND GENOMIC MEDICINE Calcium 8.9 8.8 - 10.2 mg/dL [facility] DEPARTMENT OF PATHOLOGY AND GENOMIC MEDICINE Protein 5.6 (L) 6.3 - 8.3 g/dL [facility] DEPARTMENT OF Comment: PATHOLOGY AND GENOMIC [place] 4.6-7.0 g/dL MEDICINE 1 week 4.4-7.6 g/dL 7 months-1year5.1-7.3 g/dL 1-2 years5.6-7.5 g/dL >3 years6.0-8.0 g/dL 18-150 6.3-8.3 g/dL Albumin 2.5 (L) 3.5 - 5.0 g/dL [facility] DEPARTMENT OF PATHOLOGY AND GENOMIC MEDICINE A/G ratio 0.8 0.7 - 3.8 [facility] DEPARTMENT OF PATHOLOGY AND GENOMIC MEDICINE Alkaline phosphatase 76 35 - 104 U/L [facility] DEPARTMENT OF PATHOLOGY AND GENOMIC MEDICINE AST 11 10 - 35 U/L [facility] DEPARTMENT OF PATHOLOGY AND GENOMIC MEDICINE ALT <5 (A) 5 - 50 U/L [facility] DEPARTMENT OF PATHOLOGY AND GENOMIC MEDICINE Total bilirubin <0.2 0.0 - 1.2 mg/dL [facility] DEPARTMENT OF PATHOLOGY AND GENOMIC MEDICINE Specimen Plasma specimen Performing Organization Address City/State/Zipcode Phone Number [facility] DEPARTMENT OF PATHOLOGY AND [address] [place] [phone] [facility] MEDICINE Surgical pathology request (11/25/2017 6:38 PM) [facility] DEPARTMENT OF PATHOLOGY AND GENOMIC MEDICINE Surgical pathology report See link below for PDF [facility] DEPARTMENT OF Lab Report PATHOLOGY AND GENOMIC MEDICINE Result status This is Final Report to [facility] DEPARTMENT OF [id number] PATHOLOGY AND GENOMIC MEDICINE Performing Organization Address City/State/Zipcode Phone Number [facility] DEPARTMENT OF PATHOLOGY AND [address] [place] [phone] GENOMIC MEDICINE Fungus smear (11/25/2017 2:53 PM)Only the most recent of2 resultswithin the time period is included. Fungus smear No fungi observed. [facility] DEPARTMENT OF PATHOLOGY AND Comment: [facility] MEDICINE Specimen Information Specimen Source: Tissue Specimen Site: LEFT KNEE #2 Specimen Tissue Performing Organization Address City/[facility] Phone Number [facility] DEPARTMENT OF PATHOLOGY AND [address] [place] [phone] [facility] AFB culture (11/25/2017 2:53 PM)Only the most recent of2 resultswithin the time period is included. AFB culture isolate No growth after 6 weeks of incubation. [facility] DEPARTMENT OF PATHOLOGY Comment: AND [facility] Specimen Information Specimen Source: Tissue Specimen Site: LEFT KNEE #2 Specimen Tissue Performing Organization Address City/[facility] Phone Number [facility] DEPARTMENT OF PATHOLOGY AND [address] [place] [phone] [facility] Aerobic culture (11/25/2017 2:53 PM)Only the most recent of2 resultswithin the time period is included. Aerobic culture isolate Proteus mirabilis [facility] DEPARTMENT OF Occasional PATHOLOGY AND GENOMIC [...] DUSTIN <=0.5 mcg/mL: Susceptible Performing Organization Address [facility] Phone Number [facility] DEPARTMENT OF PATHOLOGY AND [address] [place] [address] GENOMIC MEDICINE Gram stain (11/25/2017 2:53 PM)Only the most recent of2 resultswithin the time period is included. Gram stain isolate Rare WBC's [facility] DEPARTMENT OF PATHOLOGY No organisms seen AND GENOMIC MEDICINE Comment: Specimen Information Specimen Source: Tissue Specimen Site: LEFT KNEE #2 Specimen Tissue Performing Organization Address [facility] Phone Number [facility] DEPARTMENT OF PATHOLOGY AND [address] [place] [address] GENOMIC MEDICINE AFB stain (11/25/2017 2:53 PM)Only the most recent of2 resultswithin the time period is included. AFB stain No acid fast bacilli (AFB) seen. [facility] DEPARTMENT OF PATHOLOGY AND Comment: GENOMIC MEDICINE Specimen Information Specimen Source: Tissue Specimen Site: LEFT KNEE #2 Specimen Tissue Performing Organization Address [facility] Phone Number [facility] DEPARTMENT OF PATHOLOGY AND [address] [place] [address] GENOMIC MEDICINE Fungus culture (11/25/2017 2:53 PM)Only the most recent of2 resultswithin the time period is included. Fungus culture isolate No growth after 4 weeks of incubation. [facility] DEPARTMENT OF Comment: PATHOLOGY AND GENOMIC Specimen Information MEDICINE Specimen Source: Tissue Specimen Site: LEFT KNEE #2 Specimen Tissue Performing Organization Address City/[facility] Phone Number [facility] DEPARTMENT OF PATHOLOGY AND [address] [place] [address] GENOMIC MEDICINE Anaerobic culture (11/25/2017 2:53 PM)Only the most recent of2 resultswithin the time period is included. Anaerobic culture Bacteroides fragilis [facility] DEPARTMENT OF isolate , beta lactamase positive PATHOLOGY AND GENOMIC (A) MEDICINE Comment: Specimen Information Specimen Source: Tissue Specimen Site: LEFT KNEE #2 Specimen Tissue Performing Organization Address City/State/Zipcode Phone Number [facility] DEPARTMENT OF PATHOLOGY AND [address] [place] [address] GENOMIC MEDICINE POC panel 4 (11/25/2017 12:24 PM) POC sodium 135 135 - 148 mmol/L [facility] DEPARTMENT OF PATHOLOGY AND GENOMIC MEDICINE POC potassium 6.5 (HH) 3.5 - 5.0 mmol/L [facility] DEPARTMENT OF PATHOLOGY AND GENOMIC MEDICINE POC hematocrit 29 (L) 37 - 47 % [facility] DEPARTMENT OF PATHOLOGY Comment: AND GENOMIC MEDICINE Meter ID: [id number] Atomic Spectroscopist: Jackson Gao POC glucose 63 (L) 65 - 99 mg/dL [facility] DEPARTMENT OF PATHOLOGY AND GENOMIC MEDICINE Performing Organization Address City/[facility] Phone Number [facility] DEPARTMENT OF PATHOLOGY AND [address] [place] [address] GENOMIC MEDICINE after 03/14/2017 Insurance Payer Benefit Plan / Group Subscriber ID Type Phone Address MEDICARE MEDICARE PART A AND B xxxxxxxxxx Medicare [place], [place] MEDICAID MEDICAID xxxxxxxxx Medicaid Home: [id number] [facility] [phone] [address]
--- OUTSIDE RECORDS SUMMARY | 2018-03-15 15:19 | XMS REPORT | Clinical Summary ---
:1955 Author Organization [facility] Address [address] [place] [address] Care Team Providers Name Role Phone Karl Primary Care Provider Allergies Active Allergy Reactions Severity Noted Date Comments Sulfamethoxazole-Trimethoprim 03/06/2018 Clindamycin Hives, Itching 01/10/2016 Clonidine 03/06/2018 Losartan 03/06/2018 Medications Medication Sig Dispensed Refills Start End Date Status Date ALBUTEROL SULFATE Inhale 2 puffs by 0 Active (PROAIR HFA INHL) mouth via inhaler 4 (four) times daily. cycloSPORINE Place 1 drop into 0 Active (RESTASIS) 0.05 % both eyes daily. ophthalmic emulsion esomeprazole Take 40 mg by mouth 0 Active (NEXIUM) 40 MG daily. capsule fluticasone Inhale 1 puff by 0 Active (FLOVENT DISKUS) mouth via inhaler 50 mcg/actuation daily. diskus inhaler FORMOTEROL Inhale 20 mcg by 0 Active FUMARATE mouth via inhaler 2 (PERFOROMIST (two) times daily. INHL) TIOTROPIUM Inhale 1 puff by 0 Active BROMIDE (SPIRIVA mouth via inhaler RESPIMAT INHL) daily. heparin injection Inject 1 mL (5,000 1 mL 0 Active 5,000 units/mL Units total) 6 subcutaneously every 12 (twelve) hours. amoxicillin-clavu Take 1 tablet by 0 Active lanate mouth daily. (AUGMENTIN) 500-125 mg per tabletIndications : Chronic supressive therapy after infected fracture amLODIPine Take 1 tablet (10 30 tablet 0 03/11/20 Active (NORVASC) 10 MG mg total) by mouth 8 19 tablet daily. carvedilol Take 1 tablet (25 60 tablet 0 03/10/20 Active (COREG) 25 MG mg total) by mouth 8 19 tablet 2 (two) times daily. hydrALAZINE Take 1 tablet (25 90 tablet 0 03/10/20 Active (APRESOLINE) 25 mg total) by mouth 8 19 MG tablet every 8 (eight) hours. terazosin Take 1 capsule (1 30 capsule 0 03/11/20 Active (HYTRIN) 1 MG mg total) by mouth 8 19 capsule daily. gabapentin Take 1 capsule (100 60 capsule 0 03/10/20 Active (NEURONTIN) 100 mg total) by mouth 8 19 MG capsule 2 (two) times daily. sertraline Take 1 tablet (50 30 tablet 0 03/11/20 Active (ZOLOFT) 50 MG mg total) by mouth 8 19 tablet daily. traZODone Take 1 tablet (150 30 tablet 0 04/09/20 Active (DESYREL) 150 MG mg total) by mouth 8 18 tablet nightly for 30 days. labetalol Inject 4 mLs (20 mg 20 mL 0 03/10/20 Discontinued (NORMODYNE,TRANDA total) 6 18 TE) 5 mg/mL intravenously every injection 4 (four) hours as needed (SBP>180). Active Problems Problem Noted Date CKD (chronic kidney disease) stage 4, GFR 15-29 ml/min 03/07/2018 Pneumonia 03/06/2018 Acute on chronic respiratory failure with hypoxia and hypercapnia 03/06/2018 Pleural effusion, right 03/06/2018 COPD (chronic obstructive pulmonary disease) 03/06/2018 Proteinuria 01/17/2016 UTI (urinary tract infection) 01/11/2016 HTN (hypertension), malignant 01/11/2016 ARF (acute renal failure) 01/11/2016 Acute encephalopathy 01/11/2016 Altered mental status 01/10/2016 HTN (hypertension) HTN (hypertension) HTN (hypertension) CKD (chronic kidney disease) Encounters Date Type Specialty Care Team Description 03/06/2018 - Hospital Encounter General Internal Karla Acute renal failure, unspecified acute renal failure type (HCC); 03/10/2018 Medicine i, HTN (hypertension), malignant; Estela, Pneumonia of right lower lobe due to infectious organism ( HCC); Loculated pleural effusion; Mezrahi, Acute hypoxemic respiratory failure (HCC); MD Geovanna Pleural effusion, right; Acute on chronic respiratory failure with hypoxia and hypercapnia (HCC) ; Chronic obstructive pulmonary disease, unspecified COPD type (HCC); Hypertension, unspecified type after 03/14/2017 Social History Tobacco Use Types Packs/Day Years Used Date Former Smoker 0.5 Quit: 10/17/2017 Alcohol Use Drinks/Week oz/Week Comments Yes 2 Glasses of wine 1.2 Sex Assigned at Date Recorded Not on file Job Start Date Occupation Industry Not on file Not on file Not on file Travel History Travel Start Travel End No recent travel history available. Last Filed Vital Signs Vital Sign Reading Time Taken Blood Pressure 136/62 03/10/2018 2:25 PM CDT Pulse 76 03/10/2018 2:25 PM CDT Temperature 37.6 C (99.7 F) 03/10/2018 2:25 PM CDT Respiratory Rate 18 03/10/2018 2:25 PM CDT Oxygen Saturation 93% 03/10/2018 2:25 PM CDT Inhaled Oxygen Concentration 35% 03/07/2018 7:46 AM CDT Weight 39.5 kg (87 lb) 03/08/2018 3:00 AM CDT Height 154.9 cm (5' 1") 03/06/2018 5:15 PM CDT Body Mass Index 16.44 03/08/2018 3:00 AM CDT Plan of Treatment Not on file Procedures Procedure Name Priority Date/Time Associated Comments Diagnosis RHYTHM STRIP - SCAN 03/14/2018 7:50 AM CDT XR CHEST 1 VIEW Routine 03/10/2018 1:10 Results for this PORTABLE/BEDSIDE PM CDT procedure are in the results section. XR CHEST 1 VIEW STAT 03/10/2018 6:59 Results for this PORTABLE/BEDSIDE AM CDT procedure are in the results section. (CELLAVISION MANUAL Routine 03/10/2018 6:06 Results for this DIFF) AM CDT procedure are in the results section. CBC W/PLT COUNT & AUTO Routine 03/10/2018 6:06 Results for this DIFFERENTIAL AM CDT procedure are in the results section. MAGNESIUM Routine 03/10/2018 6:06 Results for this AM CDT procedure are in the results section. BASIC METABOLIC PANEL Routine 03/10/2018 6:06 Results for this (7) AM CDT procedure are in the results section. CBC W/PLT COUNT & AUTO Routine 03/10/2018 6:06 Results for this DIFFERENTIAL AM CDT procedure are in the results section. PHOSPHORUS Routine 03/10/2018 6:06 Results for this AM CDT procedure are in the results section. XR CHEST 2 VIEWS Routine 03/09/2018 8:10 Results for this PM CDT procedure are in the results section. TRANSFUSION SERVICE 03/09/2018 6:03 REPORT - SCAN PM CDT SODIUM, RANDOM URINE Routine 03/09/2018 11:29 Results for this AM CDT procedure are in the results section. CREATININE, RANDOM Routine 03/09/2018 11:29 Results for this URINE AM CDT procedure are in the results section. PROTEIN, RANDOM URINE Routine 03/09/2018 11:29 Results for this AM CDT procedure are in the results section. XR CHEST 1 VIEW Routine 03/09/2018 7:28 Results for this PORTABLE/BEDSIDE AM CDT procedure are in the results section. (CELLAVISION MANUAL Routine 03/09/2018 5:07 Results for this DIFF) AM CDT procedure are in the results section. CBC W/PLT COUNT & AUTO Routine 03/09/2018 5:07 Results for this DIFFERENTIAL AM CDT procedure are in the results section. CBC W/PLT COUNT & AUTO Routine 03/09/2018 5:07 Results for this DIFFERENTIAL AM CDT procedure are in the results section. MAGNESIUM Routine 03/09/2018 5:07 Results for this AM CDT procedure are in the results section. BASIC METABOLIC PANEL Routine 03/09/2018 5:07 Results for this (7) AM CDT procedure are in the results section. PHOSPHORUS Routine 03/09/2018 5:07 Results for this AM CDT procedure are in the results section. PREPARE LEUKO-REDUCED Routine 03/08/2018 11:54 Results for this RBC PM CDT procedure are in the results section. OSMOLALITY, URINE Routine 03/08/2018 9:25 Results for this PM CDT procedure are in the results section. URINALYSIS W/ Routine 03/08/2018 9:25 Results for this MICROSCOPIC PM CDT procedure are in the results section. XR CHEST 1 VIEW STAT 03/08/2018 9:01 Results for this PORTABLE/BEDSIDE PM CDT procedure are in the results section. TRANSFUSION SERVICE 03/08/2018 6:03 REPORT - SCAN PM CDT CT NEEDLE BIOPSY LUNG Routine 03/08/2018 5:58 Results for this PM CDT procedure are in the results section. MRSA SCREEN Routine 03/08/2018 3:43 Results for this PM CDT procedure are in the results section. XR CHEST 1 VIEW Routine 03/08/2018 5:09 Results for this PORTABLE/BEDSIDE AM CDT procedure are in the results section. (CELLAVISION MANUAL Routine 03/08/2018 4:24 Results for this DIFF) AM CDT procedure are in the results section. CBC W/PLT COUNT & AUTO Routine 03/08/2018 4:24 Results for this DIFFERENTIAL AM CDT procedure are in the results section. CBC W/PLT COUNT & AUTO Routine 03/08/2018 4:24 Results for this DIFFERENTIAL AM CDT procedure are in the results section. MAGNESIUM Routine 03/08/2018 4:24 Results for this AM CDT procedure are in the results section. BASIC METABOLIC PANEL Routine 03/08/2018 4:24 Results for this (7) AM CDT procedure are in the results section. VANCOMYCIN LEVEL, Routine 03/08/2018 4:24 Results for this RANDOM AM CDT procedure are in the results section. TRANSFUSION SERVICE 03/07/2018 6:04 REPORT - SCAN PM CDT CT CHEST WITHOUT IV Routine 03/07/2018 2:21 Results for this CONTRAST PM CDT procedure are in the results section. CBC W/PLT COUNT & AUTO Routine 03/07/2018 12:33 Results for this DIFFERENTIAL PM CDT procedure are in the results section. IRON, TIBC, % SAT. Routine 03/07/2018 12:33 Results for this (WITHOUT FERRITIN) PM CDT procedure are in the results section. FERRITIN Routine 03/07/2018 12:33 Results for this PM CDT procedure are in the results section. CBC W/PLT COUNT & AUTO Routine 03/07/2018 12:33 Results for this DIFFERENTIAL PM CDT procedure are in the results section. TRANSFUSE Routine 03/07/2018 11:16 LEUKO-REDUCED RED AM CDT BLOOD CELLS POCT-GLUCOSE METER Routine 03/07/2018 8:55 Results for this AM CDT procedure are in the results section. HAPTOGLOBIN Routine 03/07/2018 5:07 Results for this AM CDT procedure are in the results section. VITAMIN B12 AND FOLATE Routine 03/07/2018 5:07 Results for this AM CDT procedure are in the results section. PERIPHERAL BLOOD SMEAR AP Routine 03/07/2018 5:07 Results for this - PATHOLOGIST REVIEW AM CDT procedure are in the results section. XR CHEST 1 VIEW Routine 03/07/2018 4:28 Results for this PORTABLE/BEDSIDE AM CDT procedure are in the results section. CBC W/PLT COUNT & AUTO Routine 03/07/2018 4:10 Results for this DIFFERENTIAL AM CDT procedure are in the results section. CBC W/PLT COUNT & AUTO Routine 03/07/2018 4:10 Results for this DIFFERENTIAL AM CDT procedure are in the results section. MAGNESIUM Routine 03/07/2018 4:10 Results for this AM CDT procedure are in the results section. BASIC METABOLIC PANEL Routine 03/07/2018 4:10 Results for this (7) AM CDT procedure are in the results section. VANCOMYCIN LEVEL, Routine 03/07/2018 4:10 Results for this RANDOM AM CDT procedure are in the results section. LACTIC ACID, VENOUS, Routine 03/07/2018 4:10 Results for this WHOLE BLOOD AM CDT procedure are in the results section. BLOOD CULTURE Routine 03/07/2018 4:10 Results for this AM CDT procedure are in the results section. TYPE AND SCREEN, Routine 03/06/2018 9:32 Results for this AUTOMATED PM CDT procedure are in the results section. B-TYPE NATRIURETIC Routine 03/06/2018 9:32 Results for this FACTOR (BNP) PM CDT procedure are in the results section. LACTATE DEHYDROGENASE Routine 03/06/2018 9:18 Results for this (LDH) PM CDT procedure are in the results section. LACTIC ACID, VENOUS, STAT 03/06/2018 9:18 Results for this WHOLE BLOOD PM CDT procedure are in the results section. BLOOD CULTURE Routine 03/06/2018 9:18 Results for this PM CDT procedure are in the results section. CYTOLOGY AP Routine 03/06/2018 8:26 Results for this PM CDT procedure are in the results section. PROTEIN, BODY FLUID Routine 03/06/2018 8:23 Results for this PM CDT procedure are in the results section. LACTATE DEHYDROGENASE Routine 03/06/2018 8:23 Results for this (LDH), BODY FLUID PM CDT procedure are in the results section. BODY FLUID CELL COUNT Routine 03/06/2018 8:23 Results for this WITH DIFFERENTIAL PM CDT procedure are in the results section. BODY FLUID CULTURE + Routine 03/06/2018 8:08 Results for this GRAM STAIN PM CDT procedure are in the results section. XR CHEST 1 VIEW STAT 03/06/2018 8:01 Results for this PORTABLE/BEDSIDE PM CDT procedure are in the results section. CBC W/PLT COUNT & AUTO Routine 03/06/2018 7:05 Results for this DIFFERENTIAL PM CDT procedure are in the results section. CBC W/PLT COUNT & AUTO Routine 03/06/2018 7:05 Results for this DIFFERENTIAL PM CDT procedure are in the results section. PHOSPHORUS STAT 03/06/2018 7:00 Results for this PM CDT procedure are in the results section. MAGNESIUM STAT 03/06/2018 7:00 Results for this PM CDT procedure are in the results section. PT/APTT STAT 03/06/2018 7:00 Results for this PM CDT procedure are in the results section. COMPREHENSIVE Routine 03/06/2018 6:35 Results for this METABOLIC PANEL PM CDT procedure are in the results section. BLOOD GAS, ARTERIAL STAT 03/06/2018 6:16 Results for this PM CDT procedure are in the results section. after 03/14/2017 Results RHYTHM STRIP - SCAN (03/14/2018 7:50 AM CDT) Narrative Performed At XR chest 1 view portable / bedside (03/10/2018 1:10 PM CDT)Only the most recent of7 resultswithin the time period is included. Narrative Performed At FINAL REPORT [facility] AP chest HISTORY: Chest tube removal COMPARISON: 03/10/2018 IMPRESSION: Right basilar thoracostomy tube removed. Asymmetric interstitial prominence in the right lung unchanged. Focal opacity in the right lung base similar to previous. No pneumothorax. Stable cardiac silhouette enlargement. Signed: Willy Squires MD Report Verified Date/Time:03/10/2018 13:43:40 Reading Location: [address] Radiology Reading Room Procedure Note Interface, External Ris In - 03/10/2018 1:45 PM CDT FINAL REPORT AP chest HISTORY: Chest tube removal COMPARISON: 03/10/2018 IMPRESSION: Right basilar thoracostomy tube removed. Asymmetric interstitial prominence in the right lung unchanged. Focal opacity in the right lung base similar to previous. No pneumothorax. Stable cardiac silhouette enlargement. Signed: Willy Squires MD Report Verified Date/Time: 03/10/2018 13:43:40 Reading Location: [address] Radiology Reading Room Performing Organization Address City/[facility]/Zipcode Phone Number GE RIS Manual Differential (03/10/2018 6:06 AM CDT)Only the most recent of3 resultswithin the time period is included. % Neutros 68 % [facility] % Lymphs 7 % [facility] % Monos 5 % [facility] % Eos 17 % [facility] % Bands 4 0 - 10 % [facility] # Neutros 7.62 (H) 1.56 - 6.13 K/ul [facility] # Lymphs 0.78 (L) 1.18 - 3.74 K/ul [facility] # Monos 0.56 (H) 0.24 - 0.36 K/uL [facility] # Eos 1.90 (H) 0.04 - 0.36 K/uL [facility] # Bands 0.45 0.00 - 0.80 K/uL [facility] Total Counted 100 [facility] WBC Morphology Normal [facility] Platelet Morphology Normal [facility] Polychromasia 1+ few [facility] Anisocytosis 1+ few [facility] Poikilocytes 1+ few [facility] Artifact Present [facility] Platelet Conc Adequate [facility] Specimen Blood - Arm, Left Narrative Performed At Received comment: [facility] User comments: Slide comments: Performing Organization Address [facility] Cent[facility]ode Phone Number [facility] [address] [place] [phone] CENTER CBC with platelet count + automated diff (03/10/2018 6:06 AM CDT)Only the most recent of6 resultswithin the time period is included. WBC 11.2 (H) 3.5 - 10.5 K/L [facility] RBC 2.75 (L) 3.93 - 5.22 M/L [facility] Hemoglobin 8.4 (L) 11.2 - 15.7 GM/DL [facility] Hematocrit 26.8 (L) 34.1 - 44.9 % [facility] MCV 97.5 (H) 79.4 - 94.8 fL [facility] MCH 30.5 25.6 - 32.2 pg [facility] MCHC 31.3 (L) 32.2 - 35.5 GM/DL [facility] RDW 12.7 11.7 - 14.4 % [facility] Platelets 167 150 - 450 K/CU MM [facility] MPV 9.7 9.4 - 12.3 fL [facility] nRBC 0 0 - 0 /100 WBC [facility] Specimen Blood - Arm, Left Performing Organization Address City/[facility] Centercode Phone Number [address] [address] [phone] CENTER Phosphorus (03/10/2018 6:06 AM CDT)Only the most recent of3 resultswithin the time period is included. Phosphorus 3.4 2.3 - 4.7 mg/dL [facility] Specimen Blood - Arm, Left Performing Organization Address [facility]/Zipcode Phone Number [address] [address] [place] Magnesium (03/10/2018 6:06 AM CDT)Only the most recent of5 resultswithin the time period is included. Magnesium 1.9 1.6 - 2.6 mg/dL [facility] Specimen Blood - Arm, Left Performing Organization Address [facility] Centerco[facility] Phone Number [place] [phone] [place] [address] [place] Basic metabolic panel (03/10/2018 6:06 AM CDT)Only the most recent of4 resultswithin the time period is included. Sodium 138 136 - 145 meq/L [facility] Potassium 4.1 3.5 - 5.1 meq/L [facility] Chloride 106 98 - 107 meq/L [facility] CO2 26 22 - 29 meq/L [facility] BUN 37 (H) 7 - 21 mg/dL [facility] Creatinine 1.92 (H) 0.57 - 1.25 mg/dL [facility] Glucose 86 70 - 105 mg/dL [facility] Calcium 8.7 8.4 - 10.2 mg/dL [facility] EGFR 27Comment: ESTIMATED GFR IS mL/min/1.[address] [facility] NOT ACCURATE CREATININE [facility] CENTER CLEARANCE IN PREDICTING GLOMERULAR FILTRATION RATE. ESTIMATED GFR IS NOT APPLICABLE FOR DIALYSIS PATIENTS. Specimen Blood - Arm, Left Performing Organization Address [facility] Phone Number [place] [phone] [place], [place] [phone] [place] XR chest 2 views (03/09/2018 8:10 PM CDT) Narrative Performed At FINAL REPORT [facility] EXAM: PA and lateral chest radiograph COMPARISON: March 09, 2018 CLINICAL HISTORY: Pleural effusion FINDINGS: Small right subpulmonic pleural effusion is again noted without significant interval changes. A pigtail right pleural drainage catheter is seen at the right lung base. Increased bilateral interstitial pulmonary opacities are again noted which may represent edema. The cardiac size is within normal limits. The regional osseous structures are unremarkable. There is no evidence of pneumothorax. Signed: Chandu Hood MD Report Verified Date/Time:03/09/2018 21:50:16 Reading Location: [facility] B1 [id number] Consult Reading Room Procedure Note Interface, External Ris In - 03/09/2018 9:52 PM CDT FINAL REPORT EXAM: PA and lateral chest radiograph COMPARISON: March 09, 2018 CLINICAL HISTORY: Pleural effusion FINDINGS: Small right subpulmonic pleural effusion is again noted without significant interval changes. A pigtail right pleural drainage catheter is seen at the right lung base. Increased bilateral interstitial pulmonary opacities are again noted which may represent edema. The cardiac size is within normal limits. The regional osseous structures are unremarkable. There is no evidence of pneumothorax. Signed: Chandu Hood MD Report Verified Date/Time: 03/09/2018 21:50:16 Reading Location: [facility] [id number] Consult Reading Room Performing Organization Address City/State/Zipcode Phone Number [facility] TRANSFUSION SERVICE REPORT - SCAN (03/09/2018 6:03 PM CDT)Only the most recent of3 resultswithin the time period is included. Narrative Performed At Sodium, random urine (03/09/2018 11:29 AM CDT) Sodium Urine 88 meq/L [facility] Specimen Urine - Urine, Clean Catch Narrative Performed At [facility] Reference Range: No Normals Performing Organization Address City/State/Zipcode Phone Number [address] [address] CENTER Protein, random urine (03/09/2018 11:29 AM CDT) Protein, Urine 69 (H) 0 - 14 mg/dL [facility] Specimen Urine - Urine, Clean Catch Performing Organization Address [facility] Phone Number [address] [phone] [place] Creatinine, random urine (03/09/2018 11:29 AM CDT) Creatinine, Ur 45.0 mg/dL [facility] Specimen Urine - Urine, Clean Catch Narrative Performed At [facility] Reference Range: No Normals Performing Organization Address [facility] Phone Number [address] [phone] [place] Prepare Leuko-Red RBC (03/08/2018 11:54 PM CDT) CROSSMATCH COMPATIBLE [employer]AF[employer] TX Unit ABO O Neg [facility] [place] UNIT NUMBER [phone] [place] Status TRANSFUSED [facility] [place] Blood Bank Product RED BLOOD CELLS [facility] PRODUCT CODE [id number] [place] Specimen Other Performing Organization Address [facility] Phone Number [employer] [place] Osmolality, urine (03/08/2018 9:25 PM CDT) Osmolality, Ur 388 40 - 1,400 mOsm/kg [facility] Specimen Urine - Urine, Voided Performing Organization Address [facility] Phone Number [address] [phone] [place] Urinalysis w/Microscopic (03/08/2018 9:25 PM CDT) Color, UA Light Yellow [facility] Clarity, UA Clear [facility] Specific [place], UA 1.009 1.001 - 1.035 [facility] pH, UA 6.0 5.0 - 8.0 [facility] Protein, UA 50 mg/dL (A) Negative [facility] Glucose, UA Negative Negative [facility] Ketones, UA Negative Negative [facility] Bilirubin, UA Negative Negative [facility] Blood, UA Negative Negative [facility] Nitrite, UA Negative Negative [facility] Leukocytes, UA Large (A) Negative [facility] Urobilinogen, UA 0.2 0.2 - 1.0 mg/dL [facility] RBC, UA 4 /HPF [facility] WBC, UA 20 /HPF [facility] Bacteria, UA Rare [facility] Squam Epithel, UA <1 /HPF [facility] Specimen Source Urine, Voided [facility] Specimen Urine - Urine, Voided Performing Organization Address City/State/Zipcode Phone Number [facility] [address] [place] [address] biopsy lung (03/08/2018 5:58 PM CDT) Narrative Performed At FINAL REPORT [facility] CT-guided core biopsy dated 03/08/2018 Name of practitioner performing procedure: Barbara Snow M.D. Names of lead recreation assistant: None Procedure: CT guided core biopsy of right pleural-based mass. Preprocedure diagnosis: Right pleural-based mass Postprocedure diagnosis: Right pleural-based mass Specimens removed: Right pleural base mass Estimated blood loss: None Complication: None Sedation: Moderate sedation was administered. 1 mg of Versed and 50 mcg fentanyl IV was used for moderate sedation monitored under my direction. Total intraservice time of the sedation was 20 minutes. The patient's vital signs were monitored throughout the procedure and recorded in the patient's medical record by the nurse. Anesthesia: 1% Xylocaine local anesthesia. Graft/Implants: None Technique: This exam was performed according to our departmental dose-optimization program, which includes automated exposure control, adjustment of the mA and/or kV according to patient size and/or use of interactive reconstruction technique. After obtaining informed consent, CT-guided core biopsy of the right pleural-based mass was performed under usual sterile technique. After placing a 19-gauge coaxial needle into the mass, core biopsy was performed with a 20-gauge core needle with 3 passes. Patient tolerated the procedure well. Impression: Successful CT-guided core biopsy of the right pleural-based mass. Signed: Barbara Snow MD Report Verified Date/Time:03/08/2018 19:04:47 Reading Location: [facility] C0[facility] CT Body Reading Room Procedure Note Interface, External Ris In - 03/08/2018 7:07 PM CDT FINAL REPORT CT-guided core biopsy dated 03/08/2018 Name of practitioner performing procedure: Barbara Snow M.D. Names of lead recreation assistant: None Procedure: CT guided core biopsy of right pleural-based mass. Preprocedure diagnosis: Right pleural-based mass Postprocedure diagnosis: Right pleural-based mass Specimens removed: Right pleural base mass Estimated blood loss: None Complication: None Sedation: Moderate sedation was administered. 1 mg of Versed and 50 mcg fentanyl IV was used for moderate sedation monitored under my direction. Total intraservice time of the sedation was 20 minutes. The patient's vital signs were monitored throughout the procedure and recorded in the patient's medical record by the nurse. Anesthesia: 1% Xylocaine local anesthesia. Graft/Implants: None Technique: This exam was performed according to our departmental dose-optimization program, which includes automated exposure control, adjustment of the mA and/or kV according to patient size and/or use of interactive reconstruction technique. After obtaining informed consent, CT-guided core biopsy of the right pleural-based mass was performed under usual sterile technique. After placing a 19-gauge coaxial needle into the mass, core biopsy was performed with a 20-gauge core needle with 3 passes. Patient tolerated the procedure well. Impression: Successful CT-guided core biopsy of the right pleural-based mass. Signed: Barbara Snow MD Report Verified Date/Time: 03/08/2018 19:04:47 Reading Location: [facility] C013Y CT Body Reading Room Performing Organization Address City/State/Zipcode Phone Number GE RIS MRSA screen (03/08/2018 3:43 PM CDT) Result No MRSA isolated [facility] Specimen Nasal - Nose Performing Organization Address City/[facility]/Zipcode Phone Number [facility] [address] [place] [address] CENTER Vancomycin level, random (03/08/2018 4:24 AM CDT)Only the most recent of2 resultswithin the time period is included. Vancomycin Rm 22.3 ug/mL [facility] Specimen Blood Narrative Performed At [facility] Reference Range: No Normals Performing Organization Address City/[facility]/Zipcode Phone Number [facility] [address] [place] [address] [place] [address] chest without IV contrast (03/07/2018 2:21 PM CDT) Narrative Performed At FINAL REPORT [facility] HISTORY: eval pleural effusion/pleural mass COMPARISON : None Technique : Multiple axial images of the chest were performed from the lung apices to the lung bases without the administration of IV contrast. Images were presented in both the lung and soft tissue windows. This exam was performed according to our departmental dose optimization program which includes automated exposure control, adjustment of the mA and/or kV according to patient size and/or use of iterative reconstructive technique. Comment: The thyroid gland is within normal limits. There is no hilar, mediastinal or axillary lymphadenopathy. There is atherosclerotic vascular disease. The patient does have coronary atherosclerosis. There is a trace amount of pericardial fluid/pericardial thickening. The visualized portions of the liver, spleen, adrenal glands, pancreas are within normal limits. The right kidney is atrophic. Arising from the left interpolar kidney, there is an approximately 3.5 cm cyst. A smaller cyst is also seen in the partially visualized right kidney. There are some old bilateral rib fractures. There are several age indeterminate compression deformities/fractures of the T6, T8, and T10-T12 vertebral bodies. There is emphysema/COPD. There is some interlobular septal thickening which is a nonspecific finding but which can be seen in pulmonary edema. A right-sided pigtail chest tube is in place. There is a small right-sided pleural effusion with some adjacent airspace disease/consolidation. There is a masslike area identified posteriorly in the right mid lung measuring up to 5.2 x 2.7 cm that may be a pleural-based mass or could represent loculated fluid. A smaller focus may be seen further caudally and medially measuring up to 3.5 x 2.3 cm. Evaluation is limited without the administration of IV contrast. Some patchy airspace disease is seen in the right lower and upper lobes. Findings could be secondary to pulmonary edema. Pneumonitis or aspiration cannot be excluded. There is a tiny right-sided pneumothorax. Impression: 1. Emphysema/COPD. 2. Right sided pigtail chest tube in place. There is a tiny right-sided pneumothorax. 3. Small right-sided pleural effusion with adjacent consolidation. 4. Masslike density posteriorly, likely pleural-based in the right mid thoracic cavity. While this may represent some loculated pleural fluid or hemorrhagic products, a pleural/pulmonary based mass or neoplasm cannot be excluded. A smaller masslike focus may be seen further medially and caudally. Evaluation is limited without IV contrast. The findings can be best assessed with a CT with IV contrast for PET-CT. 5. Patchy airspace disease in the right upper and lower lobes. Findings could represent pulmonary edema, pneumonitis or aspiration. 6. Multiple age indeterminate compression deformities/fractures of the thoracic spine. Signed: Guy Mackenzie MD Report Verified Date/Time:03/07/2018 14:33:03 Reading Location: [address] Body Reading Room Procedure Note Interface, External Ris In - 03/07/2018 2:35 PM CDT FINAL REPORT HISTORY: eval pleural effusion/pleural mass COMPARISON : None Technique : Multiple axial images of the chest were performed from the lung apices to the lung bases without the administration of IV contrast. Images were presented in both the lung and soft tissue windows. This exam was performed according to our departmental dose optimization program which includes automated exposure control, adjustment of the mA and/or kV according to patient size and/or use of iterative reconstructive technique. Comment: The thyroid gland is within normal limits. There is no hilar, mediastinal or axillary lymphadenopathy. There is atherosclerotic vascular disease. The patient does have coronary atherosclerosis. There is a trace amount of pericardial fluid/pericardial thickening. The visualized portions of the liver, spleen, adrenal glands, pancreas are within normal limits. The right kidney is atrophic. Arising from the left interpolar kidney, there is an approximately 3.5 cm cyst. A smaller cyst is also seen in the partially visualized right kidney. There are some old bilateral rib fractures. There are several age indeterminate compression deformities/fractures of the T6, T8, and T10-T12 vertebral bodies. There is emphysema/COPD. There is some interlobular septal thickening which is a nonspecific finding but which can be seen in pulmonary edema. A right-sided pigtail chest tube is in place. There is a small right-sided pleural effusion with some adjacent airspace disease/consolidation. There is a masslike area identified posteriorly in the right mid lung measuring up to 5.2 x 2.7 cm that may be a pleural-based mass or could represent loculated fluid. A smaller focus may be seen further caudally and medially measuring up to 3.5 x 2.3 cm. Evaluation is limited without the administration of IV contrast. Some patchy airspace disease is seen in the right lower and upper lobes. Findings could be secondary to pulmonary edema. Pneumonitis or aspiration cannot be excluded. There is a tiny right-sided pneumothorax. Impression: 1. Emphysema/COPD. 2. Right sided pigtail chest tube in place. There is a tiny right-sided pneumothorax. 3. Small right-sided pleural effusion with adjacent consolidation. 4. Masslike density posteriorly, likely pleural-based in the right mid thoracic cavity. While this may represent some loculated pleural fluid or hemorrhagic products, a pleural/pulmonary based mass or neoplasm cannot be excluded. A smaller masslike focus may be seen further medially and caudally. Evaluation is limited without IV contrast. The findings can be best assessed with a CT with IV contrast for PET-CT. 5. Patchy airspace disease in the right upper and lower lobes. Findings could represent pulmonary edema, pneumonitis or aspiration. 6. Multiple age indeterminate compression deformities/fractures of the thoracic spine. Signed: Guy Mackenzie MD Report Verified Date/Time: 03/07/2018 14:33:03 Reading Location: [facility] B1 C013Y [address] Body Reading Room Performing Organization Address City/State/Zipcode Phone Number RIS Iron, TIBC, % sat. (without ferritin) (03/07/2018 12:33 PM CDT) Iron 99 40 - 160 ug/dL [facility] TIBC 120 (L) 250 - 450 ug/dL [facility] Iron % Saturation 83 (H) 20 - 55 % [facility] Specimen Blood - Arm, Left Performing Organization Address [facility]ode Phone Number [address] [address] [phone] CENTER Ferritin (03/07/2018 12:33 PM CDT) Ferritin 1,076 (H) 5 - 275 ng/mL [facility] Specimen Blood - Arm, Left Performing Organization Address [facility] Phone Number [address] [address] [phone] CENTER Transfuse Leuko-Red RBC (03/07/2018 11:16 AM CDT)Only the most recent of2 resultswithin the time period is included.POC-Glucose meter (03/07/2018 8:55 AM CDT) POC-Glucose Meter 81Comment: TESTED AT 70 - 110 mg/dL [facility] [address] [place] [id number] Specimen Blood Performing Organization Address [facility] Phone Number [address] [address] CENTER Peripheral Blood Smear - Path Review (03/07/2018 5:07 AM CDT) RBC Morphology Basophilic Stippling [facility] Elliptocytes [facility] Acanthocytes WBC Morphology Toxic Granulation [facility] Platelet Morphology Unremarkable [facility] Pathologist Review Marked hypochromic, [facility] macrocytic anemia with mild MEDICAL CENTER poikilocytosis. No schistocytes. Mild absolute neutrophilia with mild toxic changes. No circulating blasts. Pathologist: Meli Chand MD [facility] (electronic signature) [facility] Specimen Blood - Arm, Left Performing Organization Address [facility] Centercode Phone Number [address] [address] [phone] [place] Vitamin B12 and Folate (03/07/2018 5:07 AM CDT) Vitamin B12 615 213 - 816 pg/mL [facility] Folate 10.5 >=7.0 ng/mL [facility] Specimen Blood - Arm, Left Performing Organization Address [facility] Phone Number [address] [address] [phone] CENTER Haptoglobin (03/07/2018 5:07 AM CDT) Haptoglobin 184 14 - 258 mg/dL [facility] Specimen Blood - Arm, Left Performing Organization Address [facility] Phone Number [address] [address] [place] Lactic acid, venous, whole blood (03/07/2018 4:10 AM CDT)Only the most recent of2 resultswithin the time period is included. Lactate, Venous 0.4 (L) 0.5 - 2.2 mmol/L [facility] Specimen Blood - Arm, Right Narrative Performed At [facility] Effective 09/17/2015: Units/Reference Range Change New: 0.5-2.2 mmol/LPrevious: 5-20 mg/dL Performing Organization Address [facility] Phone Number [address] [address] CENTER Blood culture #2 (03/07/2018 4:10 AM CDT)Only the most recent of2 resultswithin the time period is included. Result No growth in 5 days [facility] Specimen Blood - Arm, Right Performing Organization Address [facility] Centercode Phone Number [address] [address] [phone] CENTER Type and screen, automated (03/06/2018 9:32 PM CDT) ABO/RH AUTOMATED (BEAKER) O NEGATIVE [facility] Ab Scrn NEGATIVE [facility] Specimen Blood - Line, Venous Performing Organization Address [facility] Phone Number [address] [address] B-type Natriuretic Factor (BNP) (03/06/2018 9:32 PM CDT) BNP 216 (H) 0 - 100 pg/mL [facility] Specimen Blood - Line, Venous Performing Organization Address [facility] Phone Number [address] [address] [phone] CENTER Lactate dehydrogenase (LDH) (03/06/2018 9:18 PM CDT) LDH 144 125 - 220 U/L [facility] Specimen Blood - Arm, Left Performing Organization Address [facility] Phone Number [address] [address] [phone] [place] Cytology (03/06/2018 8:26 PM CDT) Case Report Medical Cytology Report Case: [id number] [facility] Authorizing Provider:Rigo Byrne MDCollected: 03/06/20182025 [facility] Ordering Location[address]: 03/07/2018 0909 Pathologist: Raya Olmedo MD Specimen:Pleural, Right DIAGNOSIS RIGHT PLEURAL FLUID (CYTOSPINS): [facility] - NEGATIVE FOR MALIGNANCY [facility] REACTIVE MESOTHELIAL CELLS AND CHRONIC INFLAMMATION PRESENT Signing Pathologist Direct Phone Line: [phone] CPT Code(s) 57288 [facility] CLINICAL DATA Right pleural effusion, [facility] history of chronic kidney [facility] disease SPECIMEN SOURCE RIGHT PLEURAL FLUID [facility] GROSS DESCRIPTION 10 mls bloody; 4 cytospins [facility] Collected: [id number] [facility] Received: [id number] STATEMENT OF ADEQUACY Satisfactory [facility] Technical component was [facility] performed at [place], Department of [facility] Pathology, [address] [place] [phone], Professional component was [facility] performed at [place], Department of [facility] Pathology, [address] [place] [phone], Specimen Body Fluid - Pleural, Right Performing Organization Address [facility] Centercode Phone Number [address] [address] [phone] [place] Body fluid cell count with differential (03/06/2018 8:23 PM CDT) Appearance Bloody (A) Clear [facility] Color Red (A) Colorless, Straw [facility] RBCs 52,500 (H) <=1 /cu mm [facility] Adjusted WBC Count 215 (H) <=5 /cu mm [facility] Lining Cells 0 <=1 /cu mm [facility] % Segs 13 % [facility] % Lymphs 75 % [facility] % Monos 5 % [facility] % Eos 7 % [facility] % Baso 0 % [facility] Container Body Fluid EDTA Tube [facility] Specimen Body Fluid - Pleural, Right Performing Organization Address City/[facility] Centercode Phone Number [address] [address] [place] Protein, body fluid (03/06/2018 8:23 PM CDT) Protein, Fluid 3.[address] [facility] effusions if one or more are MEDICAL CENTER present: Pleural to serum protein ratio of more than 0.5; Pleural to Serum LDH of more than 0.6; Pleural LDH of more than two third of upper serum reference limit g/dL Specimen Body Fluid - Pleural, Right Narrative Performed At [facility] Absence of reference range indicates that normals have not been defined. Assay performance has not been validated for this type of specimen. Performing Organization Address City/[facility] Centercode Phone Number [address] [address] [phone] [place] Lactate dehydrogenase (LDH), body fluid (03/06/2018 8:23 PM CDT) LDH, Fluid [address] [facility] MEDICAL effusions if one or more are CENTER present: Pleural to serum LDH ratio of more than 0.6. Pleural LDH more than two third of upper serum reference limit U/L Specimen Body Fluid - Pleural, Right Narrative Performed At [facility] Absence of reference range indicates that normals have not been defined. Assay performance has not been validated for this type of specimen. Performing Organization Address [facility]ode Phone Number [address] [address] [place] Body fluid culture + gram stain (03/06/2018 8:08 PM CDT) Result No growth [facility] Gram Stain Result <1+ WBCs [facility] Gram Stain Result No organisms seen [facility] Specimen Body Fluid - Pleural, Right Performing Organization Address [facility] Centercode Phone Number [address] [address] [place] PT/aPTT (03/06/2018 7:00 PM CDT) Protime 16.2 (H) 11.7 - 14.7 seconds [facility] INR 1.3 <=5.9 [facility] PTT 29.0 22.5 - 36.0 seconds [facility] Specimen Blood Narrative Performed At [facility] RECOMMENDED COUMADIN/WARFARIN INR THERAPY RANGES STANDARD DOSE: 2.0 - 3.0 Includes: PROPHYLAXIS for venous thrombosis, systemic embolization; TREATMENT for venous thrombosis and/or pulmonary embolus. HIGH RISK: Target INR is 2.5-3.5 for patients with mechanical heart valves. Performing Organization Address City/State/Zipcode Phone Number [facility] [address] [place] [address] CENTER Comprehensive metabolic panel (03/06/2018 6:35 PM CDT) Protein, Total 6.3 6.0 - 8.3 gm/dL [facility] Albumin 3.4 (L) 3.5 - 5.0 g/dL [facility] Alkaline Phosphatase 67 40 - 150 U/L [facility] Total Bilirubin 0.4 0.2 - 1.2 mg/dL [facility] Sodium 140 136 - 145 meq/L [facility] Potassium 4.6 3.5 - 5.1 meq/L [facility] Chloride 108 (H) 98 - 107 meq/L [facility] CO2 17 (L) 22 - 29 meq/L [facility] BUN 56 (H) 7 - 21 mg/dL [facility] Creatinine 2.08 (H) 0.57 - 1.25 mg/dL [facility] Glucose 112 (H) 70 - 105 mg/dL [facility] Calcium 9.5 8.4 - 10.2 mg/dL [facility] AST 13 5 - 34 U/L [facility] ALT 6 6 - 55 U/L [facility] EGFR 24Comment: ESTIMATED GFR mL/min/1.73 sq m [facility] NOT ACCURATE [facility] CREATININE CLEARANCE IN PREDICTING GLOMERULAR FILTRATION RATE. ESTIMATED GFR IS NOT APPLICABLE FOR DIALYSIS PATIENTS. Specimen Blood Performing Organization Address City/[facility]/Zipcode Phone Number [facility] [address], [place] [id number] CENTER Blood gas, arterial (03/06/2018 6:16 PM CDT) pH, Arterial 7.34 (L) 7.35 - 7.45 [facility] pCO2, Arterial 40 35 - 45 mmHg [facility] pO2, Arterial 81 80 - 90 mmHg [facility] O2 Sat, Arterial 95.4 (L) 96.0 - 97.0 % [facility] HCO3, Arterial 21 21 - 29 mmol/L [facility] Base Excess, Arterial -4.5 (L) -2.0 - 3.0 mmol/L [facility] Patient Temperature 37.0 C [facility] FIO2 40.0 % [facility] Specimen Blood, Arterial Performing Organization Address City/[facility]/Zipcode Phone Number [facility] [address] [place] [address] [phone] CENTER after 03/14/2017 Insurance Payer Benefit Plan / Group Subscriber ID Type Phone Address MEDICARE MEDICARE A B xxxxxxxxxx Medicare [place] xxxxxxxxx Advance Directives For more information, please contact:[address] [phone] Code Status Date Activated Date Inactivated Comments Full Code 03/06/2018 5:32 PM 03/10/2018 9:00 PM This code status was determined by: Patient Full Code 01/10/2016 8:13 PM 01/21/2016 2:55 PM This code status was determined by: Patient
--- OUTSIDE RECORDS SUMMARY | 2018-03-15 15:20 | XMS REPORT ---
:1955 [facility] [address] [place] [address] Care Team Providers Name Role Phone BELLA THOMPSON Unavailable Unavailable Problems This patient has no known problems. Allergies, Adverse Reactions, Alerts This patient has no known allergies or adverse reactions. Medications This patient has no known medications. Results Test Description Test Time Test Comments Text Results Atomic Results Result Comments BLOOD CULTURE 2018-03-12 06:00:00 Test Item Value Reference Range Comments CULTURE (BEAKER) (test imva=7254) No growth in 5 days BLOOD [id number] 00:00:00 Test Item Value Reference Range Comments CULTURE (BEAKER) (test ivle=0443) No growth in 5 days CBC W/PLT COUNT & AUTO [id number] 14:24:00 Test Item Value Reference Range Comments WHITE BLOOD CELL COUNT (BEAKER) (test mone=993) 11.2 K/ L 3.5-10.5 RED BLOOD CELL COUNT (BEAKER) (test qlod=226) 2.75 M/ L 3.93-5.22 HEMOGLOBIN (BEAKER) (test iuuf=768) 8.4 GM/DL 11.2-15.7 HEMATOCRIT (BEAKER) (test sjgq=710) 26.8 % 34.1-44.9 MEAN CORPUSCULAR VOLUME (BEAKER) (test abvh=801) 97.5 fL 79.4-94.8 MEAN CORPUSCULAR HEMOGLOBIN (BEAKER) (test 30.5 pg 25.6-32.2 kuwv=828) MEAN CORPUSCULAR HEMOGLOBIN CONC (BEAKER) (test 31.3 GM/DL 32.2-35.5 dptm=725) RED CELL DISTRIBUTION WIDTH (BEAKER) (test 12.7 % 11.7-14.4 uznc=195) PLATELET COUNT (BEAKER) (test yvbr=648) 167 K/CU MM 150-450 MEAN PLATELET VOLUME (BEAKER) (test bblr=938) 9.7 fL 9.4-12.3 NUCLEATED RED BLOOD CELLS (BEAKER) (test 0 /100 WBC 0-0 eopl=020) (CELLAVISION MANUAL DIFF)2018-03-10 14:24:00 Test Item Value Reference Range Comments NEUTROPHILS - REL (CELLAVISION)(BEAKER) (test 68 % wwzv=5016) LYMPHOCYTES - REL (CELLAVISION)(BEAKER) (test 7 % ryca=2359) MONOCYTES - REL (CELLAVISION)(BEAKER) (test 5 % fctx=5854) EOSINOPHILS - REL (CELLAVISION)(BEAKER) (test 17 % cdag=0660) BANDS - REL (CELLAVISION)(BEAKER) (test yude=1709) 4 % 0-10 NEUTROPHILS - ABS (CELLAVISION)(BEAKER) (test 7.62 K/ul 1.56-6.13 urwa=7639) LYMPHOCYTES - ABS (CELLAVISION)(BEAKER) (test 0.78 K/ul 1.18-3.74 masv=3154) MONOCYTES - ABS (CELLAVISION)(BEAKER) (test 0.56 K/uL 0.24-0.36 cotp=5495) EOSINOPHILS - ABS (CELLAVISION)(BEAKER) (test 1.90 K/uL 0.04-0.36 khvj=2577) BANDS - ABS (CELLAVISION)(BEAKER) (test oryd=6397) 0.45 K/uL 0.00-0.80 TOTAL COUNTED (BEAKER) (test scdw=6833) 100 WBC MORPHOLOGY (BEAKER) (test oaed=630) Normal PLT MORPHOLOGY (BEAKER) (test kobi=740) Normal POLYCHROMATOPHILLIC RBCS(BEAKER) (test humk=874) 1+ few ANISOCYTOSIS (BEAKER) (test ukpk=183) 1+ few POIKILOCYTES (BEAKER) (test ihwg=838) 1+ few ARTIFACT (CELLAVISION)(BEAKER) (test sysn=0356) Present PLATELET CONCENTRATION (CELLAVISION)(BEAKER) (test Adequate gwgj=1207) Received comment: User comments: Slide comments:RAD, CHEST, 1 VIEW, NON [id number] 13:43:00Reason for exam:->CT removalShould this be performed at the bedside?->YesFINAL REPORT AP chest HISTORY: Chest tube removal COMPARISON: 03/10/2018 IMPRESSION:Right basilar thoracostomy tube removed. Asymmetric interstitial prominence in the right lung unchanged. Focal opacity in the right lung base similar to previous. No pneumothorax. Stable cardiac silhouette enlargement. Signed: Willy Palomino MDReport Verified Date/ Time: 03/10/2018 13:43:40 Reading Location: [address] Radiology Reading Room 01: 43 PMMRSA [id number] 07:55:00 Test Item Value Reference Range Comments CULTURE (BEAKER) (test picr=9108) No MRSA isolated BASIC METABOLIC [id number] 07:50:00 Test Item Value Reference Range Comments SODIUM (BEAKER) (test 138 meq/L 136-145 xyzw=092) POTASSIUM (BEAKER) (test 4.1 meq/L 3.5-5.1 nams=774) CHLORIDE (BEAKER) (test 106 meq/L 98-107 efqp=721) CO2 (BEAKER) (test 26 meq/L 22-29 guqu=036) BLOOD UREA NITROGEN 37 mg/dL 7-21 (BEAKER) (test ouqc=924) CREATININE (BEAKER) (test 1.92 mg/dL 0.57-1.25 bwuy=849) GLUCOSE RANDOM (BEAKER) 86 mg/dL 70-105 (test ioeg=625) CALCIUM (BEAKER) (test 8.7 mg/dL 8.4-10.2 giiy=866) EGFR (BEAKER) (test 27 mL/min/1.73 sq m ESTIMATED GFR IS NOT vtjf=7342) ACCURATE CREATININE CLEARANCE IN PREDICTING GLOMERULAR FILTRATION RATE. ESTIMATED GFR IS NOT APPLICABLE FOR DIALYSIS PATIENTS. RAD, CHEST, 1 VIEW, NON [id number] 07:44:00Reason for exam:->ptxShould this be performed at the bedside?->YesFINAL REPORT CLINICAL HISTORY: ptx TECHNIQUE: 1 view of the chest. COMPARISON: 03/09/2018 IMPRESSION: A right lung base pigtail catheter is again seen. Diffuse right lung opacities are grossly unchanged without evidence of a pneumothorax. The left lung remains relatively well-aerated. The cardiomediastinal silhouette is magnified by technique. Signed: Nereyda Ingram MDReport Verified Date/Time: 07:44:32 Reading Location: [facility] Radiology Reading Room [id number] 07:38:00 Test Item Value Reference Range Comments PHOSPHORUS (BEAKER) (test oisd=017) 3.4 mg/dL 2.3-4.7 [id number] 07:38:00 Test Item Value Reference Range Comments MAGNESIUM (BEAKER) (test gwxb=889) 1.9 mg/dL 1.6-2.6 RAD, CHEST, 2 [id number] 21:50:00Reason for exam:->eval pleural effusionFINAL REPORT EXAM: PA and lateral chest radiograph [...] no evidence of pneumothorax. Signed: Chandu Hood MDReport Verified Date/Time: 2017 21:50:16 Reading Location: [facility] C013W Consult Reading Room PROTEIN, RANDOM [id number] 12:44:00 Test Item Value Reference Range Comments PROTEIN, URINE (BEAKER) (test gnsk=7455) 69 mg/dL 0-14 CREATININE, RANDOM [id number] 12:42:00 Test Item Value Reference Range Comments CREATININE URINE (BEAKER) (test xtey=868) 45.0 mg/dL Reference Range: No NormalsSODIUM, RANDOM [id number] 12:42:00 Test Item Value Reference Range Comments SODIUM URINE (BEAKER) (test xpcp=298) 88 meq/L Reference Range: No NormalsCBC W/PLT COUNT & AUTO [id number] 11: 04:00 Test Item Value Reference Range Comments WHITE BLOOD CELL COUNT (BEAKER) (test cfni=100) 11.1 K/ L 3.5-10.5 RED BLOOD CELL COUNT (BEAKER) (test yfuq=896) 2.87 M/ L 3.93-5.22 HEMOGLOBIN (BEAKER) (test pwti=540) 8.6 GM/DL 11.2-15.7 HEMATOCRIT (BEAKER) (test xnbg=774) 27.5 % 34.1-44.9 MEAN CORPUSCULAR VOLUME (BEAKER) (test xdjw=130) 95.8 fL 79.4-94.8 MEAN CORPUSCULAR HEMOGLOBIN (BEAKER) (test 30.0 pg 25.6-32.2 ojnw=778) MEAN CORPUSCULAR HEMOGLOBIN CONC (BEAKER) (test 31.3 GM/DL 32.2-35.5 uoqz=443) RED CELL DISTRIBUTION WIDTH (BEAKER) (test 12.9 % 11.7-14.4 iaoh=899) PLATELET COUNT (BEAKER) (test xped=934) 163 K/CU MM 150-450 MEAN PLATELET VOLUME (BEAKER) (test dbxv=131) 9.6 fL 9.4-12.3 NUCLEATED RED BLOOD CELLS (BEAKER) (test 0 /100 WBC 0-0 ilpu=812) (CELLAVISION MANUAL DIFF)2018-03-09 11:04:00 Test Item Value Reference Range Comments NEUTROPHILS - REL (CELLAVISION)(BEAKER) (test 63 % tzmj=1574) LYMPHOCYTES - REL (CELLAVISION)(BEAKER) (test 5 % pgca=3215) MONOCYTES - REL (CELLAVISION)(BEAKER) (test 5 % xisw=7830) EOSINOPHILS - REL (CELLAVISION)(BEAKER) (test 24 % hsti=1658) BASOPHILS - REL (CELLAVISION)(BEAKER) (test 1 % ahva=1803) BANDS - REL (CELLAVISION)(BEAKER) (test rwqh=0209) 1 % 0-10 ATYPICAL LYMPHOCYTES - REL (CELLAVISION)(BEAKER) 1 % 0-0 (test flrx=0418) NEUTROPHILS - ABS (CELLAVISION)(BEAKER) (test 6.99 K/ul 1.56-6.13 ddqh=4499) LYMPHOCYTES - ABS (CELLAVISION)(BEAKER) (test 0.56 K/ul 1.18-3.74 gnxk=1719) MONOCYTES - ABS (CELLAVISION)(BEAKER) (test 0.56 K/uL 0.24-0.36 sxox=6002) EOSINOPHILS - ABS (CELLAVISION)(BEAKER) (test 2.66 K/uL 0.04-0.36 vvuk=7506) BASOPHILS - ABS (CELLAVISION)(BEAKER) (test 0.11 K/uL 0.01-0.08 tord=1753) BANDS - ABS (CELLAVISION)(BEAKER) (test rsvq=2370) 0.11 K/uL 0.00-0.80 ATYPICAL LYMPHOCYTES - ABS (CELLAVISION)(BEAKER) 0.11 K/uL 0.00-0.00 (test wgwp=7763) TOTAL COUNTED (BEAKER) (test zrrb=7841) 100 WBC MORPHOLOGY (BEAKER) (test hwib=053) Normal PLT MORPHOLOGY (BEAKER) (test xjqy=562) Normal POLYCHROMATOPHILLIC RBCS(BEAKER) (test hkjq=176) 1+ few BASOPHILIC STIPPLING (BEAKER) (test scfw=663) Present ARTIFACT (CELLAVISION)(BEAKER) (test gega=9236) Present PLATELET CONCENTRATION (CELLAVISION)(BEAKER) (test Adequate nxwd=5909) Received comment: User comments: Slide comments:RAD, CHEST, 1 VIEW, NON [id number] 09:45:00Reason for exam:->dyspneaShould this be performed at the bedside?->YesFINAL REPORT TECHNIQUE: Frontal chest radiographs dated 03/09/2018. CLINICALHISTORY: Dyspnea COMPARISON STUDY: Chest radiograph dated 03/08/2018 IMPRESSION:Right-sided chest tube is in place. No change in small right pleural effusion. There is asymmetric haziness over the right lung which may be secondary to layering effusion. No pneumothorax. Cardiomediastinal silhouette is stable in size. No pulmonary edema. Old right- sided rib fractures are visualized. Calcification in the neck is compatible with carotid calcifications. Signed: Americo Carlos MDReport Verified Date/ Time: 03/09/2018 09:45:43 Reading Location: [facility] Radiology Reading Room BODY FLUID CULTURE + GRAM [id number] 09:31:00 Test Item Value Reference Range Comments CULTURE (BEAKER) (test hqka=5791) No growth GRAM STAIN RESULT (BEAKER) (test <1+ WBCs anrc=9199) GRAM STAIN RESULT (BEAKER) (test No organisms seen mgvq=92868) [id number] 06:35:00 Test Item Value Reference Range Comments PHOSPHORUS (BEAKER) (test kcnb=450) 2.2 mg/dL 2.3-4.7 [id number] 06:35:00 Test Item Value Reference Range Comments MAGNESIUM (BEAKER) (test ejik=173) 1.6 mg/dL 1.6-2.6 BASIC METABOLIC [id number] 06:35:00 Test Item Value Reference Range Comments SODIUM (BEAKER) (test 141 meq/L 136-145 nvby=774) POTASSIUM (BEAKER) (test 4.2 meq/L 3.5-5.1 szus=917) CHLORIDE (BEAKER) (test 109 meq/L 98-107 zfjt=962) CO2 (BEAKER) (test 26 meq/L 22-29 oavf=585) BLOOD UREA NITROGEN 39 mg/dL 7-21 (BEAKER) (test cele=662) CREATININE (BEAKER) (test 1.61 mg/dL 0.57-1.25 vvsy=198) GLUCOSE RANDOM (BEAKER) 81 mg/dL 70-105 (test vjyg=950) CALCIUM (BEAKER) (test 9.2 mg/dL 8.4-10.2 tnjt=810) EGFR (BEAKER) (test 33 mL/min/1.73 sq m ESTIMATED GFR IS NOT idvk=4436) ACCURATE CREATININE CLEARANCE IN PREDICTING GLOMERULAR FILTRATION RATE. ESTIMATED GFR IS NOT APPLICABLE FOR DIALYSIS PATIENTS. URINALYSIS W/ [id number] 21:41:00 Test Item Value Reference Range Comments COLOR (BEAKER) (test zxau=789) Light Yellow CLARITY (BEAKER) (test vpbf=546) Clear SPECIFIC GRAVITY UA (BEAKER) (test luxf=179) 1.009 1.001-1.035 PH UA (BEAKER) (test jlwy=710) 6.0 5.0-8.0 PROTEIN UA (BEAKER) (test axmq=877) 50 mg/dL Negative GLUCOSE UA (BEAKER) (test kyix=244) Negative Negative KETONES UA (BEAKER) (test kgfx=656) Negative Negative BILIRUBIN UA (BEAKER) (test rmsm=145) Negative Negative BLOOD UA (BEAKER) (test dawc=987) Negative Negative NITRITE UA (BEAKER) (test gkvp=815) Negative Negative LEUKOCYTE ESTERASE UA (BEAKER) (test wevu=398) Large Negative UROBILINOGEN UA (BEAKER) (test xiin=180) 0.2 mg/dL 0.2-1.0 RBC UA (BEAKER) (test yfon=378) 4 /HPF WBC UA (BEAKER) (test lymw=529) 20 /HPF BACTERIA (BEAKER) (test ovqm=273) Rare SQUAMOUS EPITHELIAL (BEAKER) (test jedt=285) < /HPF SOURCE(BEAKER) (test sqna=8086) Urine, Voided OSMOLALITY, [id number] 21:41:00 Test Item Value Reference Range Comments OSMOLALITY URINE (BEAKER) (test swno=770) 388 mOsm/kg 40-1400 RAD, CHEST, 1 VIEW, NON [id number] 21:38:00Reason for exam:->S/P LUNG BIOPSYShould this be performed at the bedside?->YesFINAL REPORT TECHNIQUE: Single view of the chest. COMPARISON: 03/08/2018 at 5:09 AM FINDINGS: Bilateral patchy interstitial and airspace opacities, more so on the right, are stable. There is a small right pleural effusion with adjacent airspace disease. A right pleural drainagecatheter in place. N gross pneumothorax.No gross new lung parenchymal changes. IMPRESSION: 1. No significant interval change. No pneumothorax. Signed: Walter Hernandez MDReport Verified Date/Time: 03/08/2018 21:38:11 Reading Location: [facility] Mammo Reading Room CT, BIOPSY, [id number] 19:04:00Reason for exam:->pt found to have right pleural masses x2 on CT 03/07. Please perform core needle biopsy of these masses.FINAL REPORT CT-guided core biopsy dated 2017 Name of practitioner performing procedure:Barbara Snow M.D. Names of team assistant:None Procedure: CT guided core biopsy of right pleural-based mass. Preprocedure diagnosis:Right pleural-based mass Postprocedure diagnosis:Right pleural-based mass Specimens removed:Right pleural base mass Estimated blood loss:None Complication:NoneSedation: Moderate sedation was administered. 1 mg of Versed and 50 mcg fentanyl IV was used for moderate sedation monitored under my direction. Total intraservice time of the sedation was 20 minutes. The patient's vital signs were monitored throughout the procedure and recorded in the patient's medical record by the nurse. Anesthesia: 1% Xylocaine local anesthesia. Graft/Implants:None Technique: This exam was performed according to our departmental dose-optimization program, which includes automated exposure control, adjustment of the mA and/or kV according to patient size and/or use of interactive reconstruction technique. After obtaining informed consent, CT- guided core biopsy of the right pleural-based mass was performed under usual sterile technique. After placing a 19-gauge coaxial needle into the mass, core biopsy was performed with a 20-gauge core needle with 3 passes. Patient tolerated the procedure well. Impression: Successful CT-guided core biopsy of the right pleural-based mass. Signed: Barbara Snow MDReport Verified Date/Time: 03/08/2018 19:04:47 Reading Location: [facility] B1 C013Y CTBody Reading Room CBC W/PLT COUNT & AUTO [id number] 07:44:00 Test Item Value Reference Range Comments WHITE BLOOD CELL COUNT (BEAKER) (test loqu=584) 10.5 K/ L 3.5-10.5 RED BLOOD CELL COUNT (BEAKER) (test dtrn=299) 2.72 M/ L 3.93-5.22 HEMOGLOBIN (BEAKER) (test bvkm=627) 8.2 GM/DL 11.2-15.7 HEMATOCRIT (BEAKER) (test rnqx=980) 25.9 % 34.1-44.9 MEAN CORPUSCULAR VOLUME (BEAKER) (test uptt=854) 95.2 fL 79.4-94.8 MEAN CORPUSCULAR HEMOGLOBIN (BEAKER) (test 30.1 pg 25.6-32.2 ialj=036) MEAN CORPUSCULAR HEMOGLOBIN CONC (BEAKER) (test 31.7 GM/DL 32.2-35.5 xosy=766) RED CELL DISTRIBUTION WIDTH (BEAKER) (test 13.2 % 11.7-14.4 ptfq=974) PLATELET COUNT (BEAKER) (test mkmy=601) 154 K/CU MM 150-450 MEAN PLATELET VOLUME (BEAKER) (test uxil=405) 9.2 fL 9.4-12.3 NUCLEATED RED BLOOD CELLS (BEAKER) (test 0 /100 WBC 0-0 wifd=078) (CELLAVISION MANUAL DIFF)2018-03-08 07:44:00 Test Item Value Reference Range Comments NEUTROPHILS - REL (CELLAVISION)(BEAKER) (test 57 % aelk=3076) LYMPHOCYTES - REL (CELLAVISION)(BEAKER) (test 10 % xgit=6374) MONOCYTES - REL (CELLAVISION)(BEAKER) (test 9 % mwgl=4863) EOSINOPHILS - REL (CELLAVISION)(BEAKER) (test 23 % cqqu=7633) BASOPHILS - REL (CELLAVISION)(BEAKER) (test 1 % fezm=7836) NEUTROPHILS - ABS (CELLAVISION)(BEAKER) (test 5.99 K/ul 1.56-6.13 yaob=0587) LYMPHOCYTES - ABS (CELLAVISION)(BEAKER) (test 1.05 K/ul 1.18-3.74 tjnx=7868) MONOCYTES - ABS (CELLAVISION)(BEAKER) (test 0.95 K/uL 0.24-0.36 utff=9288) EOSINOPHILS - ABS (CELLAVISION)(BEAKER) (test 2.42 K/uL 0.04-0.36 vwnf=0850) BASOPHILS - ABS (CELLAVISION)(BEAKER) (test 0.11 K/uL 0.01-0.08 myuh=6093) TOTAL COUNTED (BEAKER) (test uvla=1244) 100 WBC MORPHOLOGY (BEAKER) (test rtzt=927) Normal PLT MORPHOLOGY (BEAKER) (test gffx=446) Normal ANISOCYTOSIS (BEAKER) (test oemk=998) 1+ few MICROCYTES (BEAKER) (test gutn=645) 1+ few ARTIFACT (CELLAVISION)(BEAKER) (test ezip=9071) Present PLATELET CONCENTRATION (CELLAVISION)(BEAKER) (test Adequate xbaa=9668) Received comment: User comments: Slide comments:RAD, CHEST, 1 VIEW, NON [id number] 07:12:00Reason for exam:->dyspneaShould this be performed at the bedside?->YesFINAL REPORT Portable chest. CLINICAL HISTORY: dyspnea. COMPARISON STUDY: Chest x-ray from yesterday. FINDINGS: The cardiac silhouette is prominent in size. The pulmonary parenchyma continues to demonstrate airspace opacities in the right lung with a right-sided chest tube in place. The opacities are more pronounced. There is a small right-sided pleural effusion, slightly larger than on previous.. No pneumothorax is seen. Degenerative changes are noted. IMPRESSION: Worsening of pulmonary opacities in the right lung and development of small right pleural effusion with chest tube in place. Signed: Srinivasa Greene MDReport Verified Date/Time: 03/08/2018 07:12 :46 Reading Location: [facility] Radiology Reading Room [id number] 04:56: 00 Test Item Value Reference Range Comments MAGNESIUM (BEAKER) (test lnfj=361) 1.9 mg/dL 1.6-2.6 BASIC METABOLIC [id number] 04:56:00 Test Item Value Reference Range Comments SODIUM (BEAKER) (test 142 meq/L 136-145 eqro=114) POTASSIUM (BEAKER) (test 4.0 meq/L 3.5-5.1 seoh=829) CHLORIDE (BEAKER) (test 110 meq/L 98-107 efcr=192) CO2 (BEAKER) (test 26 meq/L 22-29 uyac=706) BLOOD UREA NITROGEN 45 mg/dL 7-21 (BEAKER) (test xyrl=287) CREATININE (BEAKER) (test 1.66 mg/dL 0.57-1.25 hdff=946) GLUCOSE RANDOM (BEAKER) 90 mg/dL 70-105 (test gwlt=342) CALCIUM (BEAKER) (test 8.8 mg/dL 8.4-10.2 vskl=930) EGFR (BEAKER) (test 32 mL/min/1.73 sq m ESTIMATED GFR IS NOT rzoy=7334) ACCURATE CREATININE CLEARANCE IN PREDICTING GLOMERULAR FILTRATION RATE. ESTIMATED GFR IS NOT APPLICABLE FOR DIALYSIS PATIENTS. VANCOMYCIN LEVEL, [id number] 04:51:00 Test Item Value Reference Range Comments VANCOMYCIN RANDOM (BEAKER) (test ivbo=075) 22.3 ug/mL Reference Range: No NormalsVITAMIN B12 AND [id number] 21:50:00 Test Item Value Reference Range Comments VITAMIN B12 (BEAKER) (test dimz=410) 615 pg/mL 213-816 FOLATE (BEAKER) (test ofws=660) 10.5 ng/mL >=7.0 [id number] 18:03:00Medical Cytology Report Case: [id number] Authorizing Provider: Rigo Byrne MD Collected: 03/06/20182025 Ordering Location: [address] [place] [address] Received: 03/07/2018 0909 Pathologist: Raya Olmedo MD Specimen: Pleural, Right RIGHT PLEURAL FLUID (CYTOSPINS): - NEGATIVE FOR MALIGNANCY REACTIVE MESOTHELIAL CELLS AND CHRONIC INFLAMMATION PRESENT Signing Pathologist Direct Phone Line: [phone] signed by Raya Olmedo MD on 03/07/2018 at 6:03 [id number] pleural effusion, history of chronic kidney diseaseRIGHT PLEURAL FLUID10 mls bloody; 4 cytospinsCollected: [id number]: [id number]. [facility] Hospital, Department of Pathology, [address] [place] [address], [facility], [facility], [address] [place] [address], [id number] 18:02:00 Test Item Value Reference Range Comments FERRITIN (BEAKER) (test bkui=095) 1076 ng/mL 5-275 PERIPHERAL BLOOD SMEAR - PATHOLOGIST [id number] 15:55:00 Test Item Value Reference Range Comments RBC MORPHOLOGY (BEAKER) (test Basophilic Stippling lqrr=8328) RBC MORPHOLOGY (BEAKER) (test Elliptocytes hjam=15351) RBC MORPHOLOGY (BEAKER) (test Acanthocytes ompn=76528) WBC MORPHOLOGY (BEAKER) (test Toxic Granulation zifa=0045) PLT MORPHOLOGY (BEAKER) (test Unremarkable jxpo=5878) PERIPHERAL SMR REVIEW Marked hypochromic, macrocytic (BEAKER) (test ncqo=5423) anemia with mild poikilocytosis. No schistocytes. Mild absolute neutrophilia with mild toxic changes. No circulating blasts. [id number] Meli Chand MD (electronic (BEAKER) (test hldg=4218) signature) CT, CHEST, WITHOUT [id number] 14:33:00FINAL REPORT HISTORY: eval pleural effusion/pleural mass COMPARISON [...] There is a trace amount of pericardial fluid/ pericardial thickening.The visualized portions of the liver, spleen, adrenal glands, pancreas are within normal limits. Theright kidney is atrophic. Arising from the left [...] in the right mid lung measuring up to5.2 x 2.7 cm that may be a [...] Impression: 1. Emphysema/COPD. 2. Right sided pigtail chesttube in place. There is a tiny right-sided [...] or aspiration. 6. Multiple age indeterminate compression deformities /fractures of the thoracic spine. Signed: Guy Mackenzie [facility] Verified Date/ Time:03/07/2018 14:33:03 Reading Location: [facility] C013Y CT Body Reading Room IRON, TIBC , % SAT. (WITHOUT FERRITIN)2018-03-07 13:15:00 Test Item Value Reference Range Comments IRON (BEAKER) (test qdoc=801) 99 ug/dL 40-160 TOTAL IRON BINDING CAPACITY (BEAKER) (test 120 ug/dL 250-450 fblc=076) IRON % SATURATION (2) (BEAKER) (test ygbu=5805) 83 % 20-55 CBC W/PLT COUNT & AUTO [id number] 12:57:00 Test Item Value Reference Range Comments WHITE BLOOD CELL COUNT (BEAKER) (test ttqz=020) 10.6 K/ L 3.5-10.5 RED BLOOD CELL COUNT (BEAKER) (test fdtn=528) 2.70 M/ L 3.93-5.22 HEMOGLOBIN (BEAKER) (test iyya=385) 8.2 GM/DL 11.2-15.7 HEMATOCRIT (BEAKER) (test sxoa=716) 25.8 % 34.1-44.9 MEAN CORPUSCULAR VOLUME (BEAKER) (test fwib=898) 95.6 fL 79.4-94.8 MEAN CORPUSCULAR HEMOGLOBIN (BEAKER) (test 30.4 pg 25.6-32.2 wjmn=793) MEAN CORPUSCULAR HEMOGLOBIN CONC (BEAKER) (test 31.8 GM/DL 32.2-35.5 fubh=181) RED CELL DISTRIBUTION WIDTH (BEAKER) (test 13.6 % 11.7-14.4 camu=318) PLATELET COUNT (BEAKER) (test uucu=964) 187 K/CU MM 150-450 MEAN PLATELET VOLUME (BEAKER) (test czai=030) 9.3 fL 9.4-12.3 NUCLEATED RED BLOOD CELLS (BEAKER) (test 0 /100 WBC 0-0 vblc=780) NEUTROPHILS RELATIVE PERCENT (BEAKER) (test 69 % bezt=444) LYMPHOCYTES RELATIVE PERCENT (BEAKER) (test 7 % vani=599) MONOCYTES RELATIVE PERCENT (BEAKER) (test 7 % vtfz=907) EOSINOPHILS RELATIVE PERCENT (BEAKER) (test 15 % valz=441) BASOPHILS RELATIVE PERCENT (BEAKER) (test 1 % jsoq=203) NEUTROPHILS ABSOLUTE COUNT (BEAKER) (test 7.36 K/ L 1.56-6.13 jivx=725) LYMPHOCYTES ABSOLUTE COUNT (BEAKER) (test 0.77 K/ L 1.18-3.74 qumk=944) MONOCYTES ABSOLUTE COUNT (BEAKER) (test 0.78 K/ L 0.24-0.36 lvaz=254) EOSINOPHILS ABSOLUTE COUNT (BEAKER) (test 1.60 K/ L 0.04-0.36 wxod=889) BASOPHILS ABSOLUTE COUNT (BEAKER) (test 0.05 K/ L 0.01-0.08 vnss=943) IMMATURE GRANULOCYTES-RELATIVE PERCENT (BEAKER) 0 % 0-1 (test yhdi=6770) POCT-GLUCOSE [id number] 09:03:00 Test Item Value Reference Range Comments POC-GLUCOSE METER (BEAKER) 81 mg/dL 70-110 TESTED AT [facility] [address] (test jhwi=8827) [facility] [id number] [id number] 05:35:00 Test Item Value Reference Range Comments HAPTOGLOBIN (BEAKER) (test mght=249) 184 mg/dL 14-258 VANCOMYCIN LEVEL, [id number] 05:01:00 Test Item Value Reference Range Comments VANCOMYCIN RANDOM (BEAKER) (test zemv=807) 35.2 ug/mL Reference Range: No NormalsRAD, CHEST, 1 VIEW, NON [id number] 05:01: 00Reason for exam:->dyspneaShould this be performed at the bedside?-> YesFINAL REPORT Chest one view. Clinical history: dyspnea Comparison: Chest radiograph 03/06/2018. Technique: A single frontal view of the chest was obtained. Findings:There is a pigtail catheter overlying the right lung base.The cardiomediastinal contours are stable. There is a small right pleural effusion, decreased in the interval. There is linear atelectasis in the right perihilar region and right upper lobe however superimposed pneumonia cannot be entirely excluded. There is no pneumothorax There are healed bilateral rib fractures. Signed: Sotero Stoll MDReport Verified Date/ Time: 03/07/2018 05:01:09 Reading Location: [facility] B1 C013Y CT Body Reading Room Electronicallysigned by: SOTERO STOLL MD on 03/07/2018 05:01 AMBASIC METABOLIC [id number] 04:54:00 Test Item Value Reference Range Comments SODIUM (BEAKER) (test 141 meq/L 136-145 xuuz=729) POTASSIUM (BEAKER) (test 4.3 meq/L 3.5-5.1 nmxp=260) CHLORIDE (BEAKER) (test 110 meq/L 98-107 xasu=789) CO2 (BEAKER) (test 21 meq/L 22-29 fsgd=837) BLOOD UREA NITROGEN 56 mg/dL 7-21 (BEAKER) (test nciv=612) CREATININE (BEAKER) (test 1.97 mg/dL 0.57-1.25 hcng=786) GLUCOSE RANDOM (BEAKER) 68 mg/dL 70-105 (test czvx=903) CALCIUM (BEAKER) (test 8.9 mg/dL 8.4-10.2 cxib=047) EGFR (BEAKER) (test 26 mL/min/1.73 sq m ESTIMATED GFR IS NOT zkqx=3469) ACCURATE CREATININE CLEARANCE IN PREDICTING GLOMERULAR FILTRATION RATE. ESTIMATED GFR IS NOT APPLICABLE FOR DIALYSIS PATIENTS. [id number] 04:53:00 Test Item Value Reference Range Comments MAGNESIUM (BEAKER) (test scsw=144) 2.0 mg/dL 1.6-2.6 LACTIC ACID, VENOUS, WHOLE [id number] 04:52:00 Test Item Value Reference Range Comments LACTATE BLOOD VENOUS (2) (BEAKER) (test 0.4 mmol/L 0.5-2.2 tmsc=9897) Effective 09/17/2015: Units/Reference Range ChangeNew: 0.5-2.2 mmol/L Previous: 5 -20 mg/dLCBC W/PLT COUNT & AUTO [id number] 04:31:00 Test Item Value Reference Range Comments WHITE BLOOD CELL COUNT (BEAKER) (test iolq=396) 8.9 K/ L 3.5-10.5 RED BLOOD CELL COUNT (BEAKER) (test bwcb=288) 2.12 M/ L 3.93-5.22 HEMOGLOBIN (BEAKER) (test ttxe=561) 6.5 GM/DL 11.2-15.7 HEMATOCRIT (BEAKER) (test mrwd=829) 20.5 % 34.1-44.9 MEAN CORPUSCULAR VOLUME (BEAKER) (test cdal=829) 96.7 fL 79.4-94.8 MEAN CORPUSCULAR HEMOGLOBIN (BEAKER) (test 30.7 pg 25.6-32.2 mysd=166) MEAN CORPUSCULAR HEMOGLOBIN CONC (BEAKER) (test 31.7 GM/DL 32.2-35.5 nudn=666) RED CELL DISTRIBUTION WIDTH (BEAKER) (test 12.3 % 11.7-14.4 vrbj=037) PLATELET COUNT (BEAKER) (test qifl=811) 176 K/CU MM 150-450 MEAN PLATELET VOLUME (BEAKER) (test nkxh=388) 9.4 fL 9.4-12.3 NUCLEATED RED BLOOD CELLS (BEAKER) (test 0 /100 WBC 0-0 qrug=265) NEUTROPHILS RELATIVE PERCENT (BEAKER) (test 72 % pssu=686) LYMPHOCYTES RELATIVE PERCENT (BEAKER) (test 10 % dudz=858) MONOCYTES RELATIVE PERCENT (BEAKER) (test 10 % yvui=717) EOSINOPHILS RELATIVE PERCENT (BEAKER) (test 7 % uuhn=322) BASOPHILS RELATIVE PERCENT (BEAKER) (test 0 % pwjz=769) NEUTROPHILS ABSOLUTE COUNT (BEAKER) (test 6.35 K/ L 1.56-6.13 syus=346) LYMPHOCYTES ABSOLUTE COUNT (BEAKER) (test 0.92 K/ L 1.18-3.74 oulj=522) MONOCYTES ABSOLUTE COUNT (BEAKER) (test 0.90 K/ L 0.24-0.36 bnzu=163) EOSINOPHILS ABSOLUTE COUNT (BEAKER) (test 0.62 K/ L 0.04-0.36 rxjp=321) BASOPHILS ABSOLUTE COUNT (BEAKER) (test 0.03 K/ L 0.01-0.08 pkdc=859) IMMATURE GRANULOCYTES-RELATIVE PERCENT (BEAKER) 1 % 0-1 (test jwjl=2488) BODY FLUID CELL COUNT WITH [id number] 22:47:00 Test Item Value Reference Range Comments APPEARANCE FLUID (BEAKER) (test rwru=655) Bloody Clear COLOR FLUID (BEAKER) (test ojkx=341) Red Colorless, Straw RBC FLUID (BEAKER) (test fgrc=537) 20421 /cu mm <=1 ADJUSTED WBC FLUID (BEAKER) (test cmtk=6586) 215 /cu mm <=5 LINING CELLS (BEAKER) (test hvah=5546) 0 /cu mm <=1 NEUTROPHILS FLUID (BEAKER) (test ebnj=7615) 13 % LYMPHS FLUID (BEAKER) (test onbg=357) 75 % MONO/MACROPHAGE FLUID (BEAKER) (test upmy=020) 5 % EOSINOPHILS FLUID (BEAKER) (test pnxi=718) 7 % BASO FLUID (BEAKER) (test bial=061) 0 % CONTAINER BODY FLUID (BEAKER) (test kzwa=6382) EDTA Tube LACTATE DEHYDROGENASE (LDH)2018-03-06 22:33:00 Test Item Value Reference Range Comments LACTATE DEHYDROGENASE (BEAKER) (test zgde=083) 144 U/L 125-220 B-TYPE NATRIURETIC FACTOR (BNP)2018-03-06 22:17:00 Test Item Value Reference Range Comments B-TYPE NATRIURETIC PEPTIDE (BEAKER) (test 216 pg/mL 0-100 dgit=590) LACTIC ACID, VENOUS, WHOLE [id number] 22:07:00 Test Item Value Reference Range Comments LACTATE BLOOD VENOUS (2) (BEAKER) (test 0.5 mmol/L 0.5-2.2 qqnb=4549) Effective 09/17/2015: Units/Reference Range ChangeNew: 0.5-2.2 mmol/L Previous: 5 -20 mg/dLLACTATE DEHYDROGENASE (LDH), BODY [id number] 22:03:00 Test Item Value Reference Range Comments LACTATE DEHYDROGENASE FLUID (BEAKER) 150 U/L Light's criteria identifies (test jzxf=769) effusions if one or more are pre Absence of reference range indicates that normals have not been defined.Assay performance has not been validated for this type of specimen.PROTEIN, BODY [id number] 22:03:00 Test Item Value Reference Range Comments PROTEIN FLUID (BEAKER) (test 3.2 g/dL Light's criteria identifies xfsh=871) effusions if one or more are pre Absence of reference range indicates that normals have not been defined.Assay performance has not been validated for this type of specimen.RAD, CHEST, 1 VIEW , NON [id number] 20:18:00Reason for exam:->dyspneaShould this be performed at the bedside?->YesFINAL REPORT Comparison : 01/11/2016 TECHNIQUE: Single view of the chest FINDINGS: There is a small to moderate right pleural effusion. Right pleural drainage catheter is present. Mild vascular congestion suspected elsewhere. No gross pneumothorax. Bilateral rib deformities are noted. Signed: Walter Hernandez MDReport Verified Date/Time: 20:18:57 [facility] [id number] 19:44: 00 Test Item Value Reference Range Comments PHOSPHORUS (BEAKER) (test mbzi=868) 4.2 mg/dL 2.3-4.7 [id number] 19:44:00 Test Item Value Reference Range Comments MAGNESIUM (BEAKER) (test ojdv=453) 2.2 mg/dL 1.6-2.6 [id number] 19:36:00 Test Item Value Reference Range Comments PROTIME (BEAKER) (test eggk=955) 16.2 seconds 11.7-14.7 INR (BEAKER) (test fupw=055) 1.3 <=5.9 PARTIAL THROMBOPLASTIN TIME (BEAKER) (test 29.0 seconds 22.5-36.0 rmst=710) RECOMMENDED COUMADIN/WARFARIN INR THERAPY RANGESSTANDARD DOSE: 2.0 - 3.0 Includes: PROPHYLAXIS forvenous thrombosis, systemic embolization; TREATMENT for venous thrombosis and/or pulmonary embolus.HIGH RISK: Target INR is 2.5-3.5 for patients with mechanical heart valves.CBC W/PLT COUNT & AUTO [id number] 19:26:00 Test Item Value Reference Range Comments WHITE BLOOD CELL COUNT (BEAKER) (test phbx=238) 8.8 K/ L 3.5-10.5 RED BLOOD CELL COUNT (BEAKER) (test eqfl=812) 2.58 M/ L 3.93-5.22 HEMOGLOBIN (BEAKER) (test cufd=570) 7.8 GM/DL 11.2-15.7 HEMATOCRIT (BEAKER) (test krzw=846) 24.9 % 34.1-44.9 MEAN CORPUSCULAR VOLUME (BEAKER) (test mtof=762) 96.5 fL 79.4-94.8 MEAN CORPUSCULAR HEMOGLOBIN (BEAKER) (test 30.2 pg 25.6-32.2 wmas=459) MEAN CORPUSCULAR HEMOGLOBIN CONC (BEAKER) (test 31.3 GM/DL 32.2-35.5 hlzv=383) RED CELL DISTRIBUTION WIDTH (BEAKER) (test 12.1 % 11.7-14.4 eamt=903) PLATELET COUNT (BEAKER) (test tdfx=908) 210 K/CU MM 150-450 MEAN PLATELET VOLUME (BEAKER) (test lkxu=740) 9.4 fL 9.4-12.3 NUCLEATED RED BLOOD CELLS (BEAKER) (test 0 /100 WBC 0-0 twmc=322) NEUTROPHILS RELATIVE PERCENT (BEAKER) (test 91 % khep=030) LYMPHOCYTES RELATIVE PERCENT (BEAKER) (test 4 % apup=384) MONOCYTES RELATIVE PERCENT (BEAKER) (test 3 % kxnl=925) EOSINOPHILS RELATIVE PERCENT (BEAKER) (test 1 % omsq=352) BASOPHILS RELATIVE PERCENT (BEAKER) (test 0 % wnfi=032) NEUTROPHILS ABSOLUTE COUNT (BEAKER) (test 8.02 K/ L 1.56-6.13 ulhi=054) LYMPHOCYTES ABSOLUTE COUNT (BEAKER) (test 0.38 K/ L 1.18-3.74 qzlb=985) MONOCYTES ABSOLUTE COUNT (BEAKER) (test 0.30 K/ L 0.24-0.36 locu=318) EOSINOPHILS ABSOLUTE COUNT (BEAKER) (test 0.09 K/ L 0.04-0.36 tzyq=297) BASOPHILS ABSOLUTE COUNT (BEAKER) (test 0.01 K/ L 0.01-0.08 zskm=792) IMMATURE GRANULOCYTES-RELATIVE PERCENT (BEAKER) 0 % 0-1 (test ljyb=3222) COMPREHENSIVE METABOLIC [id number] 19:01:00 Test Item Value Reference Range Comments TOTAL PROTEIN (BEAKER) 6.3 gm/dL 6.0-8.3 (test mdvd=595) ALBUMIN (BEAKER) (test 3.4 g/dL 3.5-5.0 rfhg=1194) ALKALINE PHOSPHATASE 67 U/L 40-150 (BEAKER) (test caeh=640) BILIRUBIN TOTAL (BEAKER) 0.4 mg/dL 0.2-1.2 (test mdif=907) SODIUM (BEAKER) (test 140 meq/L 136-145 yytw=154) POTASSIUM (BEAKER) (test 4.6 meq/L 3.5-5.1 lpuc=313) CHLORIDE (BEAKER) (test 108 meq/L 98-107 vyax=309) CO2 (BEAKER) (test 17 meq/L 22-29 ktcl=204) BLOOD UREA NITROGEN 56 mg/dL 7-21 (BEAKER) (test nawm=233) CREATININE (BEAKER) (test 2.08 mg/dL 0.57-1.25 jfqc=441) GLUCOSE RANDOM (BEAKER) 112 mg/dL 70-105 (test wcdv=096) CALCIUM (BEAKER) (test 9.5 mg/dL 8.4-10.2 fhiv=011) AST (SGOT) (BEAKER) (test 13 U/L 5-34 xrft=581) ALT (SGPT) (BEAKER) (test 6 U/L 6-55 nyde=707) EGFR (BEAKER) (test 24 mL/min/1.73 sq m ESTIMATED GFR IS NOT zukw=1595) ACCURATE CREATININE CLEARANCE IN PREDICTING GLOMERULAR FILTRATION RATE. ESTIMATED GFR IS NOT APPLICABLE FOR DIALYSIS PATIENTS. BLOOD GAS, [id number] 18:48:00 Test Item Value Reference Range Comments PH ARTERIAL (BEAKER) (test kttz=061) 7.34 7.35-7.45 PCO2 ARTERIAL (BEAKER) (test lhmo=054) 40 mmHg 35-45 PO2 ARTERIAL (BEAKER) (test swth=703) 81 mmHg 80-90 O2 SATURATION ARTERIAL (BEAKER) (test gbfc=212) 95.4 % 96.0-97.0 HCO3 ARTERIAL (BEAKER) (test eirk=757) 21 mmol/L 21-29 BASE EXCESS ARTERIAL (BEAKER) (test xkcw=956) -4.5 mmol/L -2.0-3.0 PATIENT TEMPERATURE (BEAKER) (test mysn=7430) 37.0 C FIO2 (BEAKER) (test rcmu=1577) 40.0 %
--- NOTE | 2018-03-15 15:50 | RAD REPORT ---
EXAM DESCRIPTION: CT - Head Brain Wo Cont - 03/15/2018 3:41 pm CLINICAL HISTORY: Headache/weakness COMPARISON: 2016 TECHNIQUE: Computed axial tomography of the head was obtained. IV contrast was not requested. All CT scans are performed using dose optimization technique as appropriate and may include automated exposure control or mA/KV adjustment according to patient size. FINDINGS: Some of the images are degraded by patient motion artifact. An intracranial bleed is not seen . The ventricles are normal in caliber. No extra-axial fluid collection is noted. Fluid within the sinuses/ mastoids is not seen. IMPRESSION: No gross intracranial abnormality is seen.. If patient's symptoms persist MRI of the br ain would be recommended.
[2018-03-15 16:30] LABS: Absolute Lymphocytes (CBC) 0.9 K/uL (0.7-4.9); Absolute Neutrophil 10.3 K/uL (1.8-8.0); Eosinophils % 15.7 % (0-4.4); Hematocrit 29.3 % (36.0-45.0); Lymphocytes % 6.2 % (15.3-44.8); MCH 30.1 pg (27.0-35.0); MCV 94.2 fL (80-100); RBC Red Blood Cell Count 3.12 M/uL (3.86-4.86)
[2018-03-15] MEDS ORDERED: NA CHLORIDE 0.9% 250 ML ONE (16:40)
[2018-03-15 16:48] LABS: Protime INR 1.06
[2018-03-15 16:52] LABS: AST/SGOT 7 U/L (15-37); Albumin 2.4 g/dL (3.4-5.0); Alkaline Phosphatase 75 U/L (45-117); BUN Blood Urea Nitrogen 58 mg/dL (7-18); Bicarbonate 26 mmol/L (21-32); Bilirubin Direct 0.1 mg/dL (0-0.2); Bilirubin Total 0.2 mg/dL (0.2-1.0); Glucose Level 98 mg/dL (74-106); Magnesium 2.5 mg/dL (1.8-2.4); NT PRO-BNP 3141 pg/mL (<125); Protein, Total 5.9 g/dL (6.4-8.2); Sodium Level 136 mmol/L (136-145); Troponin (Emerg Dept Use Only) < 0.02 ng/mL (0.0-0.045)
[2018-03-15 16:56] LABS: ALT/SGPT < 6 U/L (12-78); Potassium 5.8 mmol/L (3.5-5.1)
[2018-03-15 16:59] LABS: Urine Blood NEGATIVE (NEG); Urine Glucose NEGATIVE (NEG); Urine Protein 3+ (NEG); Urine pH 5.5 (5.0-7.0)
[2018-03-15 17:17] LABS: Basophilic Stippling 1+; Blood Morphology Comment NOTED (NOT SEEN); Platelet Estimate ADEQ
[2018-03-15 17:21] LABS: Urine Amorphous Sediment 2+ /HPF (NONE SEEN); Urine Bacteria <20 /HPF (<20); Urine Culture Reflex Order NOT NEEDED; Urine RBC NONE SEEN /HPF (NONE SEEN)
[2018-03-15] MEDS ORDERED: ALBUTEROL 2.5 MG/3 ML NEB SOL ONE (17:24)
[2018-03-15] MEDS ORDERED: FUROSEMIDE 20 MG/ 2ML VIAL ONE (17:24)
[2018-03-15] MEDS ORDERED: SOD POLYSTYREN SUL 15 GM/60 ML UCUP ONE (17:25)
[2018-03-15] MEDS ORDERED: D50W 25 GM/50 ML SYRINGE IV ONE (17:25)
[2018-03-15] MEDS ORDERED: NA CHLORIDE 0.9% 1,000 ML ONE (17:26)
[2018-03-15] MEDS ORDERED: INSULIN -REGULAR HUMAN 50 UNIT/0.5 ML ML ONE (17:26)
--- NOTE | 2018-03-15 17:54 | RAD REPORT ---
EXAM DESCRIPTION: [place] Single View03/15/2018 4:03 pm CLINICAL HISTORY: Chest pain COMPARISON: March 05, 2018 FINDINGS: Small to moderate right pleural effusion is present. Right lung opacities probably repres ent a combination of atelectasis and pneumonia. Right lung volume loss is seen. Left lung appears clear of acute infiltrate. The heart is borderline enlarged
--- NOTE | 2018-03-15 18:05 | EDPHYS ---
Physician Documentation [facility] Name: Sima Asher Age: 62 yrs Sex: Female : 1955 Arrival Date: 03/15/2018 Time: 15:22 Bed 26 Private MD: ED Physician Jai Rodrigues HPI: 03/15 15:35 This 62 yrs old Female presents to ER via EMS with complaints of general cp weakness. 15:35 The patient's problem is reported as weakness, that is generalized. cp 15:35 Onset: The symptoms/episode began/occurred gradually. cp 15:35 Duration: The episode is continuous. Patient's baseline: Neuro: alert and fully cp oriented, Motor: no deficits, Ambulation: walks with assist only, uses walker, Speech: normal. Historical: - Allergies: 15:50 Bactrim; mg2 15:50 Clindamycin; mg2 15:50 Clonidine; mg2 15:50 Cozaar; mg2 15:50 Losartan; mg2 15:50 sulfamethoxazole-trimethoprim; mg2 15:50 TRIMETHOPRIM; mg2 - Home Meds: 15:50 acetaminophen 325 mg Oral tab 1 tab every 4-6 hours [Active]; Acidophilus Oral cap mg2 twice a day [Active]; amlodipine 5 mg tab 1 tab once daily [Active]; Anoro Ellipta 62.5-25 mcg/actuation inhalation dsdv 1 puff once daily [Active]; aspirin 81 mg Oral chew 1 tab once daily [Active]; Ativan 0.5 mg Oral tab 1 tab daily [Active]; Augmentin 500-125 mg Oral tab 1 tab daily for Displaced Bicondylar Fx of R Tibia, Sequela [Active]; Cardura 1 mg Oral tab 1 tab once daily [Active]; cetirizine 10 mg Oral tab 1 tab once daily [Active]; Coreg 25 mg Oral tab 1 tab 2 times per day [Active]; docusate sodium 100 mg Oral cap 1 cap 2 times per day [Active]; Dulcolax (bisacodyl) 5 mg Oral TbEC 2 tabs once daily [Active]; esomeprazole magnesium 20 mg Oral cpDR 1 cap once daily [Active]; fluticasone 50 mcg/actuation nasal spsn 1 spray once daily [Active]; gabapentin 100 mg Oral cap 1 caps 2 times per day [Active]; hydralazine 100 mg Oral tab 3 times per day [Active]; hydralazine 25 mg Oral tab 1 tab 3 times per day [Active]; iron Oral [Active]; isosorbide dinitrate 30 mg Oral tab [Active]; Maalox Maximum Strength 400-400-40 mg/5 mL Oral susp 30 mL daily [Active]; magnesium oxide 400 mg Oral cap [Active]; Milk of Magnesia 400 mg/5 mL Oral susp 30 mL once daily [Active]; mirtazapine 15 mg Oral TbDL [Active]; Nexium 40 mg Oral cpDR 1 cap once daily [Active]; Mesa 5-325 mg Oral tab 1 tab every 8 hours for Pain [Active]; ProAir HFA 90 mcg/actuation inhalation HFAA 2 puffs every 6 hours [Active]; sennosides 8.6 mg Oral tab 2 tabs once daily [Active]; tramadol 50 mg Oral tab 1 tab every 4 hours [Active]; trazodone 150 mg Oral tab 1 tab daily, at bedtime [Active]; Vitamin D Oral 5000 unit daily [Active]; Zoloft 50 mg Oral tab 1 tab once daily [Active]; - PMHx: 15:50 Anemia; CKD; COPD; Depression; GERD; Hypertension; mg2 - Immunization history:: Flu vaccine status is unknown. - Social history:: Smoking status: Patient/guardian denies using tobacco, Patient/guardian denies using alcohol, street drugs, IV drugs. - Ebola Screening: : No symptoms or risks identified at this time. ROS: 15:40 Constitutional: Positive for poor PO intake, Negative for body aches, chills, fever. cp 15:40 Eyes: Negative for injury, pain, redness, and discharge. cp 15:40 ENT: Negative for drainage from ear(s), ear pain, sore throat, difficulty swallowing, difficulty handling secretions. 15:40 Neck: Negative for pain with movement, pain at rest, stiffness, tenderness. 15:40 Cardiovascular: Negative for chest pain, edema, palpitations. 15:40 Respiratory: Negative for cough, shortness of breath, wheezing. 15:40 Abdomen/GI: Negative for abdominal pain, vomiting, diarrhea, constipation, black/tarry stool, rectal bleeding. 15:40 Back: Negative for pain at rest, pain with movement. 15:40 Skin: Negative for cellulitis, rash. 15:40 Neuro: Positive for general weakness, Negative for altered mental status, headache. 15:40 All other systems are negative. Exam: 15:47 Constitutional: The patient appears in no acute distress, alert, awake, cp non-diaphoretic, non-toxic, well developed, frail. 15:47 Head/Face: Normocephalic, atraumatic. Eyes: Pupils equal round and reactive to light, cp extra-ocular motions intact. Lids and lashes normal. Conjunctiva and sclera are non-icteric and not injected. Cornea within normal limits. Periorbital areas with no swelling, redness, or edema. 15:47 ENT: External ear(s): are unremarkable, Ear canal(s): are normal, clear, TM's: bulging, is not appreciated, bilaterally, dullness, bilaterally, erythema, is not appreciated, bilaterally, Nose: is normal, Mouth: Lips: dry, Oral mucosa: pink and intact, moist, Posterior pharynx: is normal, airway is patent, no erythema, no exudate, Voice: is normal. 15:47 Neck: ROM/movement: is normal, is supple, without pain, no range of motions limitations, no meningismus, no nuchal rigidity. 15:47 Chest/axilla: Inspection: normal, Palpation: is normal, no crepitus, no tenderness. 15:47 Cardiovascular: Rate: normal, Rhythm: regular, Pulses: Pulses are 2+ in right radial artery and left radial artery. Heart sounds: murmur, not appreciated, Edema: is not appreciated, JVD: is not appreciated. 15:47 Respiratory: the patient does not display signs of respiratory distress, Respirations: normal, no use of accessory muscles, no retractions, no splinting, no tachypnea, labored breathing, is not present, Breath sounds: rales, are not appreciated, rhonchi, are not appreciated, stridor, is not appreciated, wheezing: is not appreciated. 15:47 Abdomen/GI: Inspection: abdomen appears normal, Bowel sounds: active, all quadrants, Palpation: abdomen is soft and non-tender, in all quadrants, rebound tenderness, is not appreciated, involuntary guarding, is not appreciated. 15:47 Back: pain, is absent, ROM is normal. 15:47 Musculoskeletal/extremity: Exam is negative for acute changes, edema. 15:47 Skin: cellulitis, is not appreciated, no rash present. 15:47 Neuro: Orientation: to person, place \T\ time. Mentation: able to follow commands, slow to respond, Cerebellar function: normal finger to nose testing, Motor: moves all fours, general weakness w/o focal deficits, Sensation: no obvious gross deficits. 15:58 ECG was reviewed by the Attending Physician. cp 16:13 Radiologist reports: no acute intracranial findings noted cp Vital Signs: 15:30 BP 122 / 62; Pulse 68; Resp 18; Temp 98.3(O); Pulse Ox 96% on 2 lpm NC; Weight 39.46 mg2 kg; Height 5 ft. 1 in. (154.94 cm); 17:11 BP 117 / 48; Pulse 68; Resp 18; Pulse Ox 97% on 2 lpm NC; mg2 18:40 BP 99 / 56; Pulse 67; Resp 18; Pulse Ox 99% on R/A; Pain 0/10; mg2 19:32 BP 101 / 48; Pulse 65; Resp 18; Temp 98.5; Pulse Ox 98% 2 lpm ; Pain 0/10; mg2 20:30 BP 125 / 80; Pulse 66; Resp 18; Pulse Ox 100% on R/A; Pain 0/10; mg2 21:54 BP 130 / 50; Pulse 68; Resp 18; Temp 98.4(O); Pulse Ox 98% on 2 lpm NC; Pain 0/10; mg2 15:30 Body Mass Index 16.44 (39.46 kg, 154.94 cm) mg2 MDM: 15:22 Patient medically screened. [facility] 16:00 Differential diagnosis: CVA, TIA, metabolic disorder, drug effects, sepsis. cp 18:00 Data reviewed: vital signs, nurses notes, lab test result(s), EKG, radiologic studies, cp CT scan, plain films. 18:00 Test interpretation: by ED physician or midlevel provider: ECG, plain radiologic cp studies. Physician consultation: Yosvany French MD was called at 18:00, was contacted at 18:00, regarding admission, to the telemetry unit. patient's condition. 03/15 15:27 Order name: AMMONIA; Complete Time: 16:35 cp 03/15 16:36 Interpretation: Abnormal: FENG 12. cp 03/15 15:27 Order name: Basic Metabolic Panel; Complete Time: 16:59 cp 03/15 17:03 Interpretation: Normal except: K 5.8; BUN 58; CRE 4.40; GFR 10; CA 8.3. cp 03/15 15:27 Order name: CBC with Diff; Complete Time: 17:23 cp 03/15 16:36 Interpretation: Normal except: WBC 14.7; RBC 3.12; HGB 9.4; HCT 29.3; LYM% 6.2; cp EOSINOPHIL % 15.7; NEUT A 10.3; EOSA 2.3. 03/15 15:27 Order name: LFT's; Complete Time: 16:59 cp 03/15 17:00 Interpretation: Normal except: AST 7; ALT < 6; TP 5.9; ALB 2.4; A/G 0.7. cp 03/15 15:27 Order name: Magnesium; Complete Time: 16:59 cp 03/15 17:24 Interpretation: Abnormal: MG 2.5. cp 03/15 15:27 Order name: NT PRO-BNP; Complete Time: 16:59 cp 03/15 17:00 Interpretation: Abnormal: NT PRO-BNP 3141. cp 03/15 15:27 Order name: PT-INR; Complete Time: 16:59 cp 03/15 15:27 Order name: Troponin (emerg Dept Use Only); Complete Time: 16:59 cp 03/15 15:27 Order name: Blood Culture Adult (2) cp 03/15 15:27 Order name: Lactate; Complete Time: 16:59 cp 03/15 15:27 Order name: Urine Microscopic Only; Complete Time: 17:23 cp 03/15 17:24 Interpretation: Normal except: AMORPH 2+. cp 03/15 15:27 Order name: Procalcitonin; Complete Time: 17:23 cp 03/15 16:32 Order name: Manual Differential; Complete Time: 17:23 EDMS 03/15 17:23 Interpretation: Normal except: BANDS [F] 4; LYM 4; EOS 10. cp 03/15 16:34 Order name: Urine Dipstick--Ancillary (enter results); Complete Time: 17:03 eb 03/15 17:03 Interpretation: Normal except: UPROT 3+. cp 03/15 15:27 Order name: XRAY Chest (1 view); Complete Time: 17:55 cp 03/15 17:55 Interpretation: Report review. 03/15 15:27 Order name: CT Head Brain wo Cont; Complete Time: 16:13 cp 03/15 17:58 Order name: Influenza Screen (a \T\ B) 03/15 18:15 Order name: CBC with Automated Diff EDCA 03/15 18:15 Order name: CBC with Automated Diff EDCA 03/15 18:15 Order name: CBC with Automated Diff EDMS 03/15 18:15 Order name: CBC with Automated Diff EDMS 03/15 18:15 Order name: Comprehensive Metabolic Panel EDCA 03/15 18:15 Order name: Comprehensive Metabolic Panel [facility]CA 03/15 18:15 Order name: Comprehensive Metabolic Panel [facility] 03/15 18:15 Order name: Comprehensive Metabolic Panel [facility] 03/15 18:15 Order name: Sputum Culture EDCA 03/15 22:12 Order name: Potassium EDCA 03/15 22:19 Order name: Lactate EDCA 03/15 22:36 Order name: Procalcitonin EDCA 03/15 15:27 Order name: EKG; Complete Time: 15:28 03/15 15:27 Order name: Cardiac monitoring; Complete Time: 15:58 cp 03/15 15:27 Order name: EKG - Nurse/Tech; Complete Time: 15:58 03/15 15:27 Order name: IV Saline Lock; Complete Time: 16:16 03/15 15:27 Order name: Labs collected and sent; Complete Time: 16:17 03/15 15:27 Order name: O2 Per Protocol; Complete Time: 15:58 03/15 15:27 Order name: O2 Sat Monitoring; Complete Time: 15:58 03/15 15:27 Order name: Urine Dipstick-Ancillary (obtain specimen); Complete Time: 15:58 cp 03/15 15:31 Order name: Mandujano; Complete Time: 15:58 cp 03/15 18:15 Order name: CONS Pharmacy Consult ED[facility] 03/15 18:15 Order name: CONS Physician Consult [facility] 03/15 18:15 Order name: Heart Healthy EDMS EC:58 Rate is 63 beats/min. Rhythm is regular. [place] interval is normal. QRS interval is normal. cp QT interval is normal. Interpreted by me. Reviewed by me. Administered Medications: 16:32 Drug: NS 0.9% 250 ml Route: IV; Rate: bolus; Site: left antecubital; mg2 17:00 Follow up: Response: No adverse reaction; IV Status: Completed infusion mg2 17:43 Drug: Lasix 20 mg Route: IVP; Site: left antecubital; mg2 18:30 Follow up: Response: No adverse reaction; Marked relief of symptoms mg2 17:44 Drug: D50W 50 ml Route: IVP; Site: left antecubital; mg2 18:45 Follow up: Response: No adverse reaction mg2 17:45 Drug: Albuterol 2.5 mg Route: Inhalation; mg2 17:45 Drug: Insulin Regular Human 5 units {Co-Signature: tl3 (Dulce Maria Levi RN).} Route: IVP; mg2 Site: left antecubital; 18:45 Follow up: Response: No adverse reaction mg2 18:02 Drug: Albuterol 2.5 mg Route: Inhalation; mg2 18:02 Drug: Kayexalate 30 grams Route: PO; mg2 19:00 Follow up: Response: No adverse reaction mg2 18:30 Drug: Albuterol 2.5 mg Route: Inhalation; mg2 19:00 Follow up: Response: No adverse reaction; Marked relief of symptoms mg2 18:39 Drug: Zosyn 3.375 grams Route: IVPB; Infused Over: 60 mins; Site: left antecubital; mg2 19:31 Follow up: Response: No adverse reaction; IV Status: Completed infusion mg2 19:32 Drug: vancoMYCIN 1 grams Route: IVPB; Infused Over: 2 hrs; Site: left antecubital; mg2 20:30 Follow up: Response: No adverse reaction; IV Status: Completed infusion mg2 Disposition: 03/16 06:45 Co-signature as Attending Physician, Jai Rodrigues MD I agree with the assessment and erica plan of care. Disposition: 03/15/18 18:04 Hospitalization ordered by Yosvany French for Inpatient Admission. Preliminary diagnosis are Hyperkalemia, Pneumonia due to other specified bacteria, Unspecified kidney failure - Acute on Chronic. - Bed requested for Telemetry/MedSurg (Inpatient). - Status is Inpatient Admission. mg2 - Condition is Stable. - Problem is new. - Symptoms have improved. UTI on Admission? No Signatures: Dispatcher [employer] Stephanie Parish RN RN kl Anderson, Corey, MD MD cha Page, Corey, PA PA cp Ray Barreto RN RN mg2 Dulce Maria Levi RN tl3 Corrections: (The following items were deleted from the chart) 03/15 16:36 16:36 Normal except: WBC 14.7; RBC 3.12; HGB 9.4; HCT 29.3; LYM% 6.2; EOSINOPHIL % cp 15.7; NEUT A 10.3. cp 17:03 17:00 Normal except: K 5.8; BUN 58; CRE 4.40; GFR 10. cp cp 21:12 18:04 Hospitalization Ordered by Yosvany French MD for Inpatient Admission. Preliminary kl diagnosis is Hyperkalemia; Pneumonia due to other specified bacteria; Unspecified kidney failure - Acute on Chronic. Bed requested for Telemetry/MedSurg (Inpatient). Status is Inpatient Admission. Condition is Stable. Problem is new. Symptoms have improved. UTI on Admission? No. cp 23:17 21:12 03/15/2018 18:04 Hospitalization Ordered by Yosvany French MD for Inpatient mg2 Admission. Preliminary diagnosis is Hyperkalemia; Pneumonia due to other specified bacteria; Unspecified kidney failure - Acute on Chronic. Bed requested for Telemetry/MedSurg (Inpatient). Status is Inpatient Admission. Condition is Stable. Problem is new. Symptoms have improved. UTI on Admission? No. kl
--- NOTE | 2018-03-15 18:05 | ER ---
Nurse's Notes [facility] Name: Sima Asher Age: 62 yrs Sex: Female : 1955 Arrival Date: 03/15/2018 Time: 15:22 Bed 26 Private MD: Diagnosis: Hyperkalemia;Pneumonia due to other specified bacteria;Unspecified kidney failure-Acute on Chronic Presentation: 03/15 15:25 Presenting complaint: EMS states: she has abnormal labs /kidney and cbc done yesterday. mg2 now complaining of body weakness. BGL 152 mg/dl. Transition of care: patient was received from another setting of care ([facility]. Onset of symptoms was March 14, 2018. Risk Assessment: Do you want to hurt yourself or someone else? Patient reports no desire to harm self or others. Initial Sepsis Screen: Does the patient meet any 2 criteria? No. Patient's initial sepsis screen is negative. Does the patient have a suspected source of infection?. Care prior to arrival: None. 15:25 Method Of Arrival: EMS mg2 15:25 Acuity: SUNDAY 3 mg2 Triage Assessment: 15:53 General: Appears in no apparent distress. comfortable, Behavior is calm, cooperative. mg2 Historical: - Allergies: 15:50 Bactrim; mg2 15:50 Clindamycin; mg2 15:50 Clonidine; mg2 15:50 Cozaar; mg2 15:50 Losartan; mg2 15:50 sulfamethoxazole-trimethoprim; mg2 15:50 TRIMETHOPRIM; mg2 - Home Meds: 15:50 acetaminophen 325 mg Oral tab 1 tab every 4-6 hours [Active]; Acidophilus Oral cap mg2 twice a day [Active]; amlodipine 5 mg tab 1 tab once daily [Active]; Anoro Ellipta 62.5-25 mcg/actuation inhalation dsdv 1 puff once daily [Active]; aspirin 81 mg Oral chew 1 tab once daily [Active]; Ativan 0.5 mg Oral tab 1 tab daily [Active]; Augmentin 500-125 mg Oral tab 1 tab daily for Displaced Bicondylar Fx of R [place], [place] [Active]; Cardura 1 mg Oral tab 1 tab once daily [Active]; cetirizine 10 mg Oral tab 1 tab once daily [Active]; Coreg 25 mg Oral tab 1 tab 2 times per day [Active]; docusate sodium 100 mg Oral cap 1 cap 2 times per day [Active]; Dulcolax (bisacodyl) 5 mg Oral TbEC 2 tabs once daily [Active]; esomeprazole magnesium 20 mg Oral cpDR 1 cap once daily [Active]; fluticasone 50 mcg/actuation nasal spsn 1 spray once daily [Active]; gabapentin 100 mg Oral cap 1 caps 2 times per day [Active]; hydralazine 100 mg Oral tab 3 times per day [Active]; hydralazine 25 mg Oral tab 1 tab 3 times per day [Active]; iron Oral [Active]; isosorbide dinitrate 30 mg Oral tab [Active]; Maalox Maximum Strength 400-400-40 mg/5 mL Oral susp 30 mL daily [Active]; magnesium oxide 400 mg Oral cap [Active]; Milk of Magnesia 400 mg/5 mL Oral susp 30 mL once daily [Active]; mirtazapine 15 mg Oral TbDL [Active]; Nexium 40 mg Oral cpDR 1 cap once daily [Active]; [place] 5-325 mg Oral tab 1 tab every 8 hours for Pain [Active]; ProAir HFA 90 mcg/actuation inhalation HFAA 2 puffs every 6 hours [Active]; sennosides 8.6 mg Oral tab 2 tabs once daily [Active]; tramadol 50 mg Oral tab 1 tab every 4 hours [Active]; trazodone 150 mg Oral tab 1 tab daily, at bedtime [Active]; Vitamin D Oral 5000 unit daily [Active]; Zoloft 50 mg Oral tab 1 tab once daily [Active]; - PMHx: 15:50 Anemia; CKD; COPD; Depression; GERD; Hypertension; mg2 - Immunization history:: Flu vaccine status is unknown. - Social history:: Smoking status: Patient/guardian denies using tobacco, Patient/guardian denies using alcohol, street drugs, IV drugs. - Ebola Screening: : No symptoms or risks identified at this time. Screenin:52 Abuse screen: Denies threats or abuse. Denies injuries from another. Nutritional mg2 screening: No deficits noted. Tuberculosis screening: No symptoms or risk factors identified. Fall Risk Secondary diagnosis (15 points) impaired mobility, Gait- Weak (10 pts.). Assessment: 16:17 General: Appears in no apparent distress. comfortable, Behavior is calm, cooperative. mg2 Pain: Denies pain. Neuro: Level of Consciousness is awake, alert, obeys commands, Oriented to person, place, time, situation. Neuro: Reports weakness in general body. Cardiovascular: Capillary refill < 3 seconds Patient's skin is warm and dry. Cardiovascular: Respiratory: Airway is patent Respiratory effort is even, unlabored, Respiratory pattern is regular, symmetrical. GI: No signs and/or symptoms were reported involving the gastrointestinal system. : No signs and/or symptoms were reported regarding the genitourinary system. EENT: No deficits noted. Derm: Skin is intact, is healthy with good turgor, Skin is pink, warm \T\ dry. normal. Musculoskeletal: Circulation, motion, and sensation intact. Capillary refill < 3 seconds. 18:40 Reassessment: Patient appears in no apparent distress at this time. Patient and/or mg2 family updated on plan of care and expected duration. Pain level reassessed. Patient is alert, oriented x 3, equal unlabored respirations, skin warm/dry/pink. 19:50 Reassessment: Patient appears in no apparent distress at this time. Patient and/or mg2 family updated on plan of care and expected duration. Pain level reassessed. Patient is alert, oriented x 3, equal unlabored respirations, skin warm/dry/pink. 20:50 Reassessment: Patient appears in no apparent distress at this time. Patient and/or mg2 family updated on plan of care and expected duration. Pain level reassessed. Patient is alert, oriented x 3, equal unlabored respirations, skin warm/dry/pink. Vital Signs: 15:30 BP 122 / 62; Pulse 68; Resp 18; Temp 98.3(O); Pulse Ox 96% on 2 lpm NC; Weight 39.46 mg2 kg; Height 5 ft. 1 in. (154.94 cm); 17:11 BP 117 / 48; Pulse 68; Resp 18; Pulse Ox 97% on 2 lpm NC; mg2 18:40 BP 99 / 56; Pulse 67; Resp 18; Pulse Ox 99% on R/A; Pain 0/10; mg2 19:32 BP 101 / 48; Pulse 65; Resp 18; Temp 98.5; Pulse Ox 98% 2 lpm ; Pain 0/10; mg2 20:30 BP 125 / 80; Pulse 66; Resp 18; Pulse Ox 100% on R/A; Pain 0/10; mg2 21:54 BP 130 / 50; Pulse 68; Resp 18; Temp 98.4(O); Pulse Ox 98% on 2 lpm NC; Pain 0/10; mg2 15:30 Body Mass Index 16.44 (39.46 kg, 154.94 cm) mg2 ED Course: 15:22 Patient arrived in ED. mg2 15:22 Bharati Salmon FNP-C is PHCP. snw 15:22 Jai Rodrigues MD is Attending Physician. snw 15:25 PHCP role handed off by Bharati Salmon FNP-C cp 15:25 Jai Vick PA is PHCP. cp 15:28 Triage completed. mg2 15:[address] mw3 15:41 CT Head Brain wo Cont In Process Unspecified. EDMS 15:41 CT completed. Patient tolerated procedure well. Patient moved to radiology via mw3 stretcher. 15:44 Ray Barreto, SERENA is Primary Nurse. mg2 15:51 Arm band placed on. mg2 15:52 Patient has correct armband on for positive identification. front desk monitor on. Pulse mg2 ox on. NIBP on. Door closed. Warm blanket given. 16:01 Mandujano cath inserted, using sterile technique, 16 Fr., by pr, balloon inflated, to tl3 gravity drainage, urine specimen collected. 16:03 X-ray completed. Patient tolerated procedure well. Patient moved back from radiology. 1 16:03 XRAY Chest (1 view) In Process Unspecified. EDMS 16:10 EKG done, by coding tech. reviewed by Jai CASTLE. dt2 16:20 No provider procedures requiring assistance completed. Inserted saline lock: 22 gauge mg2 in left antecubital area, using aseptic technique. Blood collected. 18:00 Yosvany French MD is Hospitalizing Provider. cp 21:27 Assisted to bedside commode. Bath given. Cleaned of incontinence. Linen changed. tl3 21:55 Patient admitted, IV remains in place. mg2 Administered Medications: 16:32 Drug: NS 0.9% 250 ml Route: IV; Rate: bolus; Site: left antecubital; mg2 17:00 Follow up: Response: No adverse reaction; IV Status: Completed infusion mg2 17:43 Drug: Lasix 20 mg Route: IVP; Site: left antecubital; mg2 18:30 Follow up: Response: No adverse reaction; Marked relief of symptoms mg2 17:44 Drug: D50W 50 ml Route: IVP; Site: left antecubital; mg2 18:45 Follow up: Response: No adverse reaction mg2 17:45 Drug: Albuterol 2.5 mg Route: Inhalation; mg2 17:45 Drug: Insulin Regular Human 5 units {Co-Signature: tl3 (Dulce Maria Levi RN).} Route: IVP; mg2 Site: left antecubital; 18:45 Follow up: Response: No adverse reaction mg2 18:02 Drug: Albuterol 2.5 mg Route: Inhalation; mg2 18:02 Drug: Kayexalate 30 grams Route: PO; mg2 19:00 Follow up: Response: No adverse reaction mg2 18:30 Drug: Albuterol 2.5 mg Route: Inhalation; mg2 19:00 Follow up: Response: No adverse reaction; Marked relief of symptoms mg2 18:39 Drug: Zosyn 3.375 grams Route: IVPB; Infused Over: 60 mins; Site: left antecubital; mg2 19:31 Follow up: Response: No adverse reaction; IV Status: Completed infusion mg2 19:32 Drug: vancoMYCIN 1 grams Route: IVPB; Infused Over: 2 hrs; Site: left antecubital; mg2 20:30 Follow up: Response: No adverse reaction; IV Status: Completed infusion mg2 Outcome: 18:04 Decision to Hospitalize by Provider. cp 21:55 Admitted to Med/surg accompanied by tech, via stretcher, room 225, with oxygen, with mg2 chart, Report called to SERENA burns 21:55 Condition: stable 21:55 Instructed on the need for admit, Demonstrated understanding of instructions. 23:17 Patient left the ED. mg2 Signatures: Dispatcher [employer] EDMS Bharati Salmon, PRIMITIVO-C CLERICAL ADVISER-Csnw Dacia Turner mh1 Jai Vick PA PA cp Lowrey, Tammy, RN RN tl3 Ray Barreto RN RN mg2 Bonnie Lucia dt2 Michelle Stringer mw3 Dulce Maria Levi RN tl3 Corrections: (The following items were deleted from the chart) 15:30 15:25 Presenting complaint: EMS states: she has abnormal labs /kidney and cbc done mg2 yesterday. now complaining of body weakness. mg2
[2018-03-15] MEDS ORDERED: ONDANSETRON 4 MG/2 ML VIAL IV PRN (18:06)
[2018-03-15] MEDS ORDERED: ACETAMINOPHEN 500 MG TAB PO PRN (18:06)
[2018-03-15] MEDS ORDERED: VANCOMYCIN 1 GM/250 ML BAG ONE (18:21)
[2018-03-15] MEDS ORDERED: PIPER/TAZO/NS 3.375gm 3.375 GM/100 ML BAG ONE (18:21)
--- NOTE | 2018-03-15 20:52 | P.HP ---
Certification for Inpatient Patient admitted to: Inpatient With expected LOS: >2 Midnights Practitioner: I am a practitioner with admitting privileges, knowledge of patient current condition, hospital course, and medical plan of care. Services: Services provided to patient in accordance with Admission requirements found in Title 42 Section 412.3 of the Code of Federal Regulations Patient History Date of Service: 03/15/18 Reason for admission: Sepsis History of Present Illness: Ms Asher is a is year old woman with multiple problems including COPD with home oxygen, hypertension, CKD, started yesterday to be more lethargic. The patient today had fever 100.0 F, and my encounter, she was obtunded, unable to provide reliable history. Any ways, she denied any cough or increasing shortness of breath. She also denied any pain, nausea, vomiting or diarrhea. Lab work remarkable for leukocytosis 14.7 K with 4% bands. She was afebrile in ER. Chest x-ray showed mild right pleural effusion, with a possible infiltrate. Her renal function was significantly worse, potassium elevated 5.8. Allergies losartan [From Cozaar] Allergy (Severe, Verified 10/18/17 05:11) kidney injury clindamycin Allergy (Intermediate, Verified 10/18/17 05:11) Itching/Hives/Rash clonidine Allergy (Verified 10/18/17 10:40) Unknown sulfamethoxazole [From Bactrim] Allergy (Verified 10/18/17 05:11) Unknown trimethoprim [From Bactrim] Allergy (Verified 10/18/17 05:11) Unknown Home medications list reviewed: Yes Home Medications: Aspirin Chewable [Aspirin Chewable*] 81 mg PO DAILY tab.chew 11/08/17 Carvedilol [Coreg*] 25 mg PO BID 6AM 6PM tab 11/08/17 Cetirizine HCl [Zyrtec*] 10 mg PO DAILY tablet 11/08/17 Cholecalciferol (Vitamin D3) [Vitamin D 5,000 IU Cap*] 5,000 unit PO DAILY cap 11/08/17 Docusate [Colace Cap*] 100 mg PO BID cap 11/08/17 Trazodone [Desyrel*] 150 mg PO BEDTIME #0 tab 11/08/17 traMADol HCL [Ultram*] 100 mg PO Q4H PRN #90 tab 11/08/17 Acetaminophen [Acetaminophen Extra Strength] 325 mg PO Q4H 03/02/18 Albuterol Sulfate [Proair Hfa] 2 puff IH Q6H 03/02/18 Amox/Clavulanate [Augmentin 500-125 mg Tab*] 500 mg PO DAILY 03/02/18 Bisacodyl [Dulcolax*] 10 mg PO DAILY 03/02/18 Doxazosin [Cardura*] 1 mg PO DAILY 03/02/18 Esomeprazole Magnesium [Nexium 24Hr] 20 mg PO DAILY 03/02/18 Gabapentin [Neurontin*] 100 mg PO BID 03/02/18 Hydralazine [Apresoline*] 25 mg PO TID 03/02/18 Hydrocodone/Acetaminophen [[place] 5-325 Tablet] 1 each PO Q8H 03/02/18 LORazepam [Ativan*] 0.5 mg PO DAILY 03/02/18 Lactobacillus Acidophilus [Acidophilus] 1 each PO BID 03/02/18 Mag Hydrox/Al Hydrox/Simeth [Maalox Maximum Strength Susp] 30 ml PO DAILY Mag Hydroxide 8% [Milk Of Magnesia*] 30 ml PO DAILY 03/02/18 Sennosides 2 tab PO DAILY 03/02/18 Sertraline [Zoloft*] 50 mg PO DAILY 03/02/18 Umeclidinium Brm/Vilanterol Tr [Anoro Ellipta 62.5-25 Mcg INH] 1 each IH DAILY 03/02/18 Amlodipine [Norvasc*] 10 mg PO DAILY tab 03/06/18 - Past Medical/Surgical History Diabetic: No -: COPD oxygen-dependent -: Chronic renal disease -: Hypertension -: GERD -: Depression with things -: Hyperlipidemia -: Carotid arterial disease -: Allergic rhinitis -: Colon polyps -: Neuropathy -: Tobacco abuse -: MYALGIAS -: Colin hip replacements -: -: Tonsillectomy Psychosocial/ Personal History: Patient is currently living at home with her daughter - Family History Father -: Heart disease, Hypertension, Cancer Notes: lung ca - Social History Smoking Status: Former smoker Alcohol use: No CD- Drugs: No Caffeine use: No Place of Residence: Jail Review of Systems 10-point ROS is otherwise unremarkable Physical Examination - Physical Exam General: In no apparent distress, Other (Obtunded) HEENT: Atraumatic, PERRLA, Mucous membr. moist/pink, EOMI, Sclerae nonicteric Neck: Supple, 2+ carotid pulse no bruit, No LAD, Without JVD or thyroid abnormality Respiratory: Diminished (Right base), Other (No wheezing) Cardiovascular: Normal S1 S2, No gallops Gastrointestinal: Normal bowel sounds, No tenderness Musculoskeletal: No tenderness Integumentary: No rashes Neurological: Normal tone, Sensation intact, Normal affect Lymphatics: No axilla or inguinal lymphadenopathy - Studies Laboratory Data (last 24 hrs) 03/15/18 16:05: PT 12.5, INR 1.06 03/15/18 16:05: WBC 14.7 H, Hgb 9.4 L, Hct 29.3 L, Plt Count 228 03/15/18 16:05: Sodium 136, Potassium 5.8 H*, BUN 58 H, Creatinine 4.40 H, Glucose 98, Magnesium 2.5 H, Total Bilirubin 0.2, AST 7 L, ALT < 6 L, Alkaline Phosphatase 75 Assessment and Plan - Problems (Diagnosis) (1) COPD exacerbation Current Visit: Yes Status: Acute (2) Acute encephalopathy Current Visit: Yes Status: Acute (3) [id number] kidney injury Onset Date: 03/06/18 Current Visit: No Status: Acute Qualifiers: Acute renal failure type: unspecified Chronic kidney disease stage: unspecified stage Qualified Code(s): N17.9 - Acute kidney failure, unspecified ; N18.9 - Chronic kidney disease, unspecified (4) Pneumonia Onset Date: 03/06/18 Current Visit: No Status: Acute Qualifiers: Pneumonia type: due to unspecified organism Laterality: right Lung location: lower lobe of lung Qualified Code(s): J18.1 - Lobar pneumonia, unspecified organism (5) Sepsis Onset Date: 03/06/18 Current Visit: No Status: Acute Qualifiers: Sepsis type: sepsis due to unspecified organism Qualified Code(s): A41.9 - Sepsis, unspecified organism (6) GERD (gastroesophageal reflux disease) Onset Date: 03/06/18 Current Visit: No Status: Chronic Qualifiers: Esophagitis presence: esophagitis presence not specified Qualified Code(s) : K21.9 - Gastro-esophageal reflux disease without esophagitis (7) Hypertension Onset Date: 10/22/18 Current Visit: No Status: Chronic Qualifiers: Hypertension type: essential hypertension Qualified Code(s): I10 - Essential (primary) hypertension - Plan The patient will be admitted to the hospital due to COPD exacerbation secondary to right lower lobe pneumonia. She also has acute encephalopathy due to sepsis. Renal function is significantly worse than her baseline, possible due to volume depletion in context of sepsis, potassium is elevated. She has received treatment for hyperkalemia in ER, will check new potassium level and continue treatment if remain elevated. Continue volume replacement, broad- spectrum IV antibiotics. Repeat laboratory work in the morning. - Advance Directives Does patient have a Living Will: No Does patient have a Durable POA for Healthcare: No - Code Status/Comfort Care Code Status Assessed: Yes Code Status: Full Code
[2018-03-15] MEDS: CEFEPIME/SWI 2gm 2 GM/20 ML SYR IVP SCH (21:00)
[2018-03-15] MEDS ORDERED: CEFEPIME 1 GM/VIAL IV SCH (21:00)
[2018-03-15] MEDS ORDERED: VANCOMYCIN/NS 1 gm 1 GM/250 ML BAG IV SCH (21:00)
[2018-03-15] MEDS ORDERED: CEFEPIME 2 GM VIAL ONE (22:12)
[2018-03-15] MEDS: ENOXAPARIN 30 MG/0.3 ML SQ SCH (23:12)
[2018-03-15] MEDS: NA CHLORIDE 0.9% 1,000 ML IV SCH (23:12)
[2018-03-15] MEDS ORDERED: TRAZODONE 150 MG TAB PO ONE (23:55)
[2018-03-16 00:23] VITALS: BMI 18.1
[2018-03-16] MEDS: TRAMADOL HCL 50 MG TAB PO PRN ×2 (00:28→20:39)
[2018-03-16] MEDS: NA CHLORIDE 0.9% 1,000 ML IV SCH ×2 (04:44→10:07)
[2018-03-16 06:25] LABS: Absolute Lymphocytes (CBC) 0.8 K/uL (0.7-4.9); Absolute Neutrophil 9.8 K/uL (1.8-8.0); Basophils % 1.1 % (0-1.3); Eosinophils % 15.1 % (0-4.4); Hematocrit 24.3 % (36.0-45.0); Lymphocytes % 5.7 % (15.3-44.8); MCH 31.2 pg (27.0-35.0); MCV 92.7 fL (80-100); MPV 8.2 fL (7.6-11.3); Monocytes % 7.2 % (3.3-12.3); RBC Red Blood Cell Count 2.62 M/uL (3.86-4.86)
[2018-03-16 06:40] LABS: AST/SGOT 7 U/L (15-37); Albumin 2.2 g/dL (3.4-5.0); Alkaline Phosphatase 63 U/L (45-117); BUN Blood Urea Nitrogen 58 mg/dL (7-18); Bicarbonate 25 mmol/L (21-32); Bilirubin Total 0.2 mg/dL (0.2-1.0); Glucose Level 89 mg/dL (74-106); Potassium 4.3 mmol/L (3.5-5.1); Protein, Total 5.4 g/dL (6.4-8.2); Sodium Level 142 mmol/L (136-145)
--- NOTE | 2018-03-16 06:40 | EKG ---
Test Date: 2018-03-15 Test Time: 15:57:17 Public Health Technician: NIGEL MEASUREMENT RESULTS: Intervals: Rate: 63 MD: 184 QRSD: 78 QT: 396 QTc: 405 [place]: P: 60 MD: 184 QRS: 4 T: 49 INTERPRETIVE STATEMENTS: Normal sinus rhythm Cannot rule out Anterior infarct, age undetermined Abnormal ECG Compared to ECG 03/02/2018 11:29:26 Myocardial infarct finding now present Electronically Signed On 03-16-18 06:39:38 CDT by Silver Durham
[2018-03-16 06:42] LABS: ALT/SGPT < 6 U/L (12-78)
[2018-03-16 08:36] LABS: Blood Morphology Comment NOT SEEN (NOT SEEN); Platelet Estimate ADEQ; Urine White Blood Cell Casts OK
[2018-03-16] MEDS: CEFEPIME/SWI 2gm 2 GM/20 ML SYR IVP SCH (10:11)
[2018-03-16] MEDS: HYDRALAZINE HCL 25 MG TABLET PO SCH ×2 (13:05→20:35)
--- NOTE | 2018-03-16 14:30 | P.CNS ---
Date of Consult: 03/16/18 Reason for Consult: MINDI/ CKD Requesting Physician: Yosvany French Chief Complaint: Sepsis History of Present Illness: Ms Asher is a is year old woman with multiple problems including COPD with home oxygen, hypertension, CKD, started yesterday to be more lethargic. The patient today had fever 100.0 F, and my encounter, she was obtunded, unable to provide reliable history. Any ways, she denied any cough or increasing shortness of breath. She also denied any pain, nausea, vomiting or diarrhea. Lab work remarkable for leukocytosis 14.7 K with 4% bands. She was afebrile in ER. Chest x-ray showed mild right pleural effusion, with a possible infiltrate. Her renal function was significantly worse, potassium elevated 5.8. 15:35 This 62 yrs old Female presents to ER via EMS with complaints of general cp weakness. 15:35 The patient's problem is reported as weakness, that is generalized Case discussed with the daughter. No NSAIDs. Feeling better today. Allergies losartan [From Cozaar] Allergy (Severe, Verified 10/18/17 05:11) kidney injury clindamycin Allergy (Intermediate, Verified 10/18/17 05:11) Itching/Hives/Rash clonidine Allergy (Verified 10/18/17 10:40) Unknown sulfamethoxazole [From Bactrim] Allergy (Verified 10/18/17 05:11) Unknown trimethoprim [From Bactrim] Allergy (Verified 10/18/17 05:11) Unknown Home medications list reviewed: Yes Home Medications: Carvedilol [Coreg*] 25 mg PO BID 6AM 6PM tab 11/08/17 Cetirizine HCl [Zyrtec*] 10 mg PO DAILY tablet 11/08/17 Trazodone [Desyrel*] 150 mg PO BEDTIME #0 tab 11/08/17 Albuterol Sulfate [Proair Hfa] 1 puff IH Q6H 03/02/18 Amox/Clavulanate [Augmentin 500-125 mg Tab*] 500 mg PO DAILY 03/02/18 Esomeprazole Magnesium [Nexium 24Hr] 40 mg PO DAILY 03/02/18 Gabapentin [Neurontin*] 100 mg PO BID 03/02/18 Hydralazine [Apresoline*] 25 mg PO TID 03/02/18 LORazepam [Ativan*] 0.5 mg PO Q8H PRN 03/02/18 Sertraline [Zoloft*] 50 mg PO DAILY 03/02/18 Umeclidinium Brm/Vilanterol Tr [Anoro Ellipta 62.5-25 Mcg INH] 1 each IH DAILY 03/02/18 Amlodipine [Norvasc*] 10 mg PO DAILY tab 03/06/18 Cyclosporine [Restasis] 1 each OP DAILY 03/16/18 Fluticasone Propionate [Flovent Diskus] 1 puff IH DAILY 03/16/18 Formoterol Fumarate Dihyd,Micr [Formoterol Fumarate] 2 mg IH BID 03/16/18 Terazosin HCl 1 mg PO DAILY 03/16/18 traMADol HCL [Ultram*] 100 mg PO Q6H PRN 03/16/18 - Past Medical/Surgical History Diabetic: No -: COPD oxygen-dependent -: Chronic renal disease -: Hypertension -: GERD -: Depression with things -: Hyperlipidemia -: Carotid arterial disease -: Allergic rhinitis -: Colon polyps -: Neuropathy -: Tobacco abuse -: MYALGIAS -: Colin hip replacements -: -: Tonsillectomy Psychosocial/ Personal History: Patient is currently living at home with her daughter - Family History Father Medical History: Heart disease, Hypertension, Cancer Notes: lung ca - Social History Smoking Status: Current every day smoker Alcohol use: Yes CD- Drugs: No Caffeine use: Yes Place of Residence: [place]term Review of Systems 10-point ROS is otherwise unremarkable General: Weakness, Malaise Physical Examination Temp Pulse Resp BP Pulse Ox 99.4 F 89 17 133/62 93 03/16/18 08:00 03/16/18 08:00 03/16/18 08:00 03/16/18 08:00 03/16/18 08:00 General: In no apparent distress, Oriented x3, Cooperative HEENT: Atraumatic, Normocephalic Neck: Supple Respiratory: Clear to auscultation bilaterally, Normal air movement Cardiovascular: No edema, Regular rate/rhythm Gastrointestinal: Soft and benign, Non-distended Musculoskeletal: No clubbing, No contractures Integumentary: No rashes, No cyanosis Neurological: Normal speech Laboratory Data (last 24 hrs) 03/15/18 16:05: PT 12.5, INR 1.06 03/15/18 16:05: WBC 14.7 H, Hgb 9.4 L, Hct 29.3 L, Plt Count 228 03/15/18 16:05: Sodium 136, Potassium 5.8 H*, BUN 58 H, Creatinine 4.40 H, Glucose 98, Magnesium 2.5 H, Total Bilirubin 0.2, AST 7 L, ALT < 6 L, Alkaline Phosphatase 75 Imagings Data: EXAM DESCRIPTION: [place] Single View03/15/2018 4:03 pm CLINICAL HISTORY: Chest pain COMPARISON: March 05, 2018 FINDINGS: Small to moderate right pleural effusion is present. Right lung opacities probably represent a combination of atelectasis and pneumonia. Right lung volume loss is seen. Left lung appears clear of acute infiltrate. The heart is borderline enlarged Conclusions/Impression: A/ MINDI likely hypovolemia. ATN? CKD III with proteinuria. Hyperkalemia. HTN with CKD. Anemia in chronic illness. Hypocalcemia. Moderate malnutrition. P/ Continue current POC and Medications. IVF adjusted. Encourage nutrition. Ensure ordered. Agree wit Kionex. Follow up cultures. Start Vitamin D. No NSAIDs. AM labs. Daily weight. Thank you kindly for the consultation.
[2018-03-16] MEDS: NACHLORIDE 0.45% 1,000 ML IV SCH (16:36)
[2018-03-16] MEDS: IPRATROPIUM BROM 0.5MG/2.5ML NEB PRN (17:15)
[2018-03-16] MEDS: ALBUTEROL 2.5 MG/3 ML NEB SOL NEB PRN (17:15)
[2018-03-16] MEDS: ENOXAPARIN 30 MG/0.3 ML SQ SCH (18:43)
[2018-03-16] MEDS: CARVEDILOL 25 MG TAB PO SCH (18:44)
--- NOTE | 2018-03-16 18:50 | PN ---
Date of Progress Note: 03/16/2018 History: The patient is seen and examined. Chart reviewed and case discussed with RN. The patient is very lethargic, barely able to wake up in particular in history taking. Review of Systems: Negative except as above. Medications: List reviewed. Physical Examination: Vital Signs: Temperature 99.4, heart rate 89, blood pressure 133/62, respirations 17, O2 93% on 2 L via nasal cannula. General: Asleep, but arousable, ill-appearing female, older than stated age. Frail. CV: S1, S2. No murmurs. Peripheral pulses present. Respiratory: Diminished breath sounds. No wheezing or stridor. The patient is somewhat tachypneic. Extremities: No clubbing, cyanosis, or edema. Neurologic: Nonfocal. Moves all 4 extremities. Awakens to name. Laboratory Data: Sodium 142, potassium 4.3, chloride 108, CO2 25, BUN 58, creatinine 4.4, glucose 89 , calcium 8, albumin 2.2. WBC 13.9, H and H 8.2, 24.3, platelets 215, neutrophils 70%. Bands have c leared up. Blood culture is pending. Sputum culture pending. Influenza screen negative. Assessment And Plan: A 62-year-old female with: 1.Acute chronic obstructive pulmonary disease exacerbation. We will continue with breathing treatme nts. Continue supplemental oxygen. 2.Acute metabolic encephalopathy, may be related to renal toxicity versus sepsis. We will hold all sedative medications. 3.Acute on chronic kidney disease. Creatinine is elevated above baseline. We will continue to [facility]. Appreciate Dr. Holcomb's input. Likely secondary to acute tubular necrosis. The patient has s tage 3 chronic kidney disease with proteinuria. 4.Hyperkalemia, treated and corrected. 5.Essential hypertension. We will resume home medications as appropriate. 6.Anemia of chronic disease due to kidney disease. We will monitor H and H and transfuse as needed. 7.Sepsis. 8.Right lower lobe pneumonia. We will continue with IV antibiotics. The patient was recently in e hospital setting. Therefore, we will cover with vancomycin and Zosyn. Blood cultures and sputum c ultures are pending at this time. 9.Gastroesophageal reflux disease without esophagitis, on PPI. 10.Hypocalcemia. We will replace and monitor. 11.Moderate protein-calorie malnutrition. Albumin is 2.2. 12.Moderate pleural effusion. The patient has been transferred from this facility at [facility] to [facility] for VATS procedure. The patient is unable to tell me if she had that procedure . No family at the bedside. We will obtain records. Current chest x-ray shows [id number] ri ght pleural effusion. Plan: We will continue current treatment. Follow up on cultures and monitor creatinine. Still has not improved. The patient is making urine. Estimated length of stay 42-72 hours depending on clinic al response. /AZALEA Voice ID: [id number] Report ID: [id number]
[2018-03-16] MEDS: GABAPENTIN 100 MG CAP PO SCH (20:35)
[2018-03-16] MEDS: [UNRECOGNIZED DRUG - OTHER] IH SCH (20:41)
[2018-03-16] MEDS: ENSURE ENLIVE 237 ML CAN PO SCH (20:41)
[2018-03-16] MEDS ORDERED: LORAZEPAM 0.5 MG TABLET PO ONE (21:01)
[2018-03-17] MEDS: NACHLORIDE 0.45% 1,000 ML IV SCH ×2 (00:41→11:50)
[2018-03-17] MEDS: CARVEDILOL 25 MG TAB PO SCH ×2 (05:46→19:45)
[2018-03-17 06:22] LABS: Urine Appearance CLOUDY; Urine Bilirubin NEGATIVE (NEG); Urine Blood NEGATIVE (NEG); Urine Color YELLOW; Urine Glucose NEGATIVE (NEG); Urine Protein 2+ (NEG); Urine Specific Gravity 1.015 (1.005-1.030); Urine Urobilinogen 0.2 mg/dL (0.2-1.0)
[2018-03-17] MEDS ORDERED: PANTOPRAZOLE 40MG TABLET PO SCH (06:30)
[2018-03-17 06:54] LABS: Absolute Lymphocytes (CBC) 1.1 K/uL (0.7-4.9); Absolute Monocytes 1.4 K/uL (0.1-1.3); Absolute Neutrophil 10.1 K/uL (1.8-8.0); Basophils % 0.2 % (0-1.3); Eosinophils % 14.7 % (0-4.4); Hematocrit 26.3 % (36.0-45.0); Lymphocytes % 7.3 % (15.3-44.8); MCH 30.3 pg (27.0-35.0); MCV 94.1 fL (80-100); MPV 8.1 fL (7.6-11.3); Monocytes % 9.4 % (3.3-12.3); RBC Red Blood Cell Count 2.79 M/uL (3.86-4.86)
[2018-03-17 07:00] LABS: AST/SGOT 6 U/L (15-37); Albumin 2.2 g/dL (3.4-5.0); Alkaline Phosphatase 65 U/L (45-117); BUN Blood Urea Nitrogen 54 mg/dL (7-18); Bicarbonate 24 mmol/L (21-32); Bilirubin Total 0.2 mg/dL (0.2-1.0); Glucose Level 99 mg/dL (74-106); Magnesium 2.2 mg/dL (1.8-2.4); Phosphorus 7.1 mg/dL (2.5-4.9); Potassium 4.2 mmol/L (3.5-5.1); Protein, Total 5.8 g/dL (6.4-8.2); Sodium Level 140 mmol/L (136-145); Uric Acid 7.5 mg/dL (2.6-6.0)
[2018-03-17 07:05] LABS: ALT/SGPT < 6 U/L (12-78)
[2018-03-17 07:07] LABS: Urine Amorphous Sediment 2+ /HPF (NONE SEEN); Urine Bacteria >50 /HPF (<20); Urine Culture Reflex Order REFLEXED; Urine Mucus 2+ /HPF (NONE SEEN); Urine RBC <5 /HPF (NONE SEEN)
[2018-03-17] MEDS: ALBUTEROL 2.5 MG/3 ML NEB SOL NEB PRN ×2 (07:41→14:08)
[2018-03-17] MEDS: IPRATROPIUM BROM 0.5MG/2.5ML NEB PRN (07:41)
[2018-03-17] MEDS ORDERED: AMLODIPINE 10 MG TAB PO SCH (09:00)
[2018-03-17] MEDS: [UNRECOGNIZED DRUG - OTHER] IH SCH (09:00)
[2018-03-17] MEDS ORDERED: CETIRIZINE HCL 5 MG TABLET PO SCH (09:00)
[2018-03-17] MEDS ORDERED: TERAZOSIN HCL 1 MG CAP PO SCH (09:00)
[2018-03-17] MEDS ORDERED: HOME MED 1 EA UNK (Umeclidinium Brm/Vilanterol Tr [Anoro Ellipta 62.5-25 Mcg Inh] 1 EACH) IH SCH (09:00)
[2018-03-17] MEDS ORDERED: CEFEPIME/SWI 1gm 1 GM/10 ML SYR IV SCH (09:00)
[2018-03-17] MEDS ORDERED: SERTRALINE HCL 50 MG TAB PO SCH (09:00)
[2018-03-17] MEDS ORDERED: FLUTICASONE PROPIONATE IH SCH (09:00)
[2018-03-17] MEDS ORDERED: VITAMIN D 5,000 UNIT CAP PO SCH (09:00)
[2018-03-17] MEDS ORDERED: HOME MED 1 EA UNK (Cyclosporine [Restasis] 1 EACH) OP SCH (09:00)
[2018-03-17] MEDS ORDERED: CALCITROL 0.25 MCG CAP PO SCH (09:00)
[2018-03-17] MEDS: GABAPENTIN 100 MG CAP PO SCH (09:40)
[2018-03-17] MEDS: HYDRALAZINE HCL 25 MG TABLET PO SCH ×2 (09:40→14:00)
[2018-03-17] MEDS: ENSURE ENLIVE 237 ML CAN PO SCH ×2 (09:43→14:00)
[2018-03-17 12:45] VITALS: TEMP 98.1
[2018-03-17] MEDS ORDERED: predniSONE 20 MG TAB PO SCH (13:29)
--- NOTE | 2018-03-17 13:31 | P.CNS ---
Date of Consult: 03/17/18 Reason for Consult: Lung mass possible sepsis Chief Complaint: Sepsis History of Present Illness: Patient is 62 years of age was recently transferred to [facility] for the possibility of multi loculated effusion admitted to the hospital with slight fever and did mental status and a mild leukocytosis abnormal chest x-ray Patient is currently in coherent after receiving a dose of Ativan last night no pertinent response to questions Up on review of records from [facility] he undergo thoracentesis with a pigtail catheter negative for malignant cells are infection 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 chest x-ray shows again a mass in the right lower lobe Allergies losartan [From Cozaar] Allergy (Severe, Verified 10/18/17 05:11) kidney injury clindamycin Allergy (Intermediate, Verified 10/18/17 05:11) Itching/Hives/Rash clonidine Allergy (Verified 10/18/17 10:40) Unknown sulfamethoxazole [From Bactrim] Allergy (Verified 10/18/17 05:11) Unknown trimethoprim [From Bactrim] Allergy (Verified 10/18/17 05:11) Unknown Home Medications: Carvedilol [Coreg*] 25 mg PO BID 6AM 6PM tab 11/08/17 Cetirizine HCl [Zyrtec*] 10 mg PO DAILY tablet 11/08/17 Trazodone [Desyrel*] 150 mg PO BEDTIME #0 tab 11/08/17 Albuterol Sulfate [Proair Hfa] 1 puff IH Q6H 03/02/18 Amox/Clavulanate [Augmentin 500-125 mg Tab*] 500 mg PO DAILY 03/02/18 Esomeprazole Magnesium [Nexium 24Hr] 40 mg PO DAILY 03/02/18 Gabapentin [Neurontin*] 100 mg PO BID 03/02/18 Hydralazine [Apresoline*] 25 mg PO TID 03/02/18 LORazepam [Ativan*] 0.5 mg PO Q8H PRN 03/02/18 Sertraline [Zoloft*] 50 mg PO DAILY 03/02/18 Umeclidinium Brm/Vilanterol Tr [Anoro Ellipta 62.5-25 Mcg INH] 1 each IH DAILY 03/02/18 Amlodipine [Norvasc*] 10 mg PO DAILY tab 03/06/18 Cyclosporine [Restasis] 1 each OP DAILY 03/16/18 Fluticasone Propionate [Flovent Diskus] 1 puff IH DAILY 03/16/18 Formoterol Fumarate Dihyd,Micr [Formoterol Fumarate] 2 mg IH BID 03/16/18 Terazosin HCl 1 mg PO DAILY 03/16/18 traMADol HCL [Ultram*] 100 mg PO Q6H PRN 03/16/18 - Past Medical/Surgical History Diabetic: No -: COPD oxygen-dependent -: Chronic renal disease -: Hypertension -: GERD -: Depression with things -: Hyperlipidemia -: Carotid arterial disease -: Allergic rhinitis -: Colon polyps -: Neuropathy -: Tobacco abuse -: MYALGIAS -: Colin hip replacements -: -: Tonsillectomy Psychosocial/ Personal History: Patient is currently living at home with her daughter - Family History Father Medical History: Heart disease, Hypertension, Cancer Notes: lung ca - Social History Smoking Status: Current every day smoker Alcohol use: Yes CD- Drugs: No Caffeine use: Yes Place of Residence: [facility] Review of Systems is unable to be obtained Physical Examination Temp Pulse Resp BP Pulse Ox 98.1 F 85 16 128/59 L 93 03/17/18 12:00 03/17/18 12:00 03/17/18 12:00 03/17/18 12:00 03/17/18 12:00 General: Unresponsive HEENT: Atraumatic Neck: Supple Respiratory: Clear to auscultation bilaterally, Diminished Cardiovascular: No edema, Regular rate/rhythm, Normal S1 S2 Gastrointestinal: Normal bowel sounds, Soft and benign - Problems (1) COPD exacerbation Onset Date: 03/16/18 Current Visit: Yes Status: Acute Plan: Patient is 62 years of age with a recent diagnosis of sarcomatoid lung cancer negative pleural effusion for infection or cancer patient did undergo CT-guided biopsy at [facility] currently has altered mental status may be side effect of Ativan patient has underlying COPD leukocytosis normal renal function prognosis is very poor continue with bronchodilators steroids ovoid sedation I doubt currently she is a candidate for chemotherapy radiation or knee surgery possible infection CT of the chest agree with broad-spectrum antibiotics continue with IV fluids
[2018-03-17] MEDS: IPRATROPIUM BROM 0.5MG/2.5ML NEB SCH ×2 (14:08→19:53)
[2018-03-17] MEDS: METHYLPREDNISOLONE 40 MG INJ IV SCH ×2 (14:09→17:35)
[2018-03-17 14:27] LABS: Arterial Blood Carboxyhemoglob 1.7 % (0-1.5); Blood Gas Oxyhemoglobin 91.9 % (94-97); Blood O2 Saturation 94.1 % (92-98.5)
--- NOTE | 2018-03-17 16:32 | PN ---
Date of Progress Note: 03/17/2018 Subjective: The patient seen and examined. Chart reviewed and case discussed with RN. The patient much more alert today. Reviews records from [facility] was reviewed. The patient did have a chest tube placement and drainage of approximately 2 L and pathology report states right- sided sarcomatoid neoplasm of the lung. No family at the bedside. The patient still having some shortness of breath, however, states somewhat improved. Review of Systems: Negative except as above. Medications: List reviewed. Physical Examination: Vital Signs: Temperature 97.1, heart rate 73, blood pressure 133/63, respirations 16, O2 99% on 4 L via nasal cannula. General: Awake, alert, oriented x2, in mild respiratory distress. Ill- appearing, older than stated age. Cachectic female. BMI 19. CV: S1, S2. Regular rate and rhythm. Peripheral pulses present. Respiratory: Diminished breath sounds. No wheezing. No use of accessory muscles. Gastrointestinal: Abdomen is soft, nontender, nondistended. Positive bowel sounds. No guarding or rigidity. Extremities: No clubbing, cyanosis, or edema. Neurologic: Nonfocal. Laboratory Data: Sodium 140, potassium 4.2, chloride 108, CO2 24, BUN 54, creatinine 3.8, glucose 99, uric acid 7.5, calcium 8.2, phosphorus 7.1, magnesium 2.2, albumin is 2.2. WBC 14.8, H and H 8.5 and 26.3, platelets 219, neutrophils 68%. UA; WBC 10-50, urine bacteria greater than 50. Blood cultures , no growth to date. Sputum culture and urine culture pending. Assessment And Plan: A 62-year-old female with: 1. Acute chronic obstructive pulmonary disease exacerbation. Continue nebulizer treatments and supplemental O2. 2. Acute metabolic encephalopathy may be due to renal toxicity versus sepsis. More awake and alert today, however, not quite back to baseline. 3. Scmyw-fy-djfconr kidney disease. Creatinine elevated, however, improving. Appreciate Dr. Holcomb's input. We will continue. The patient has stage 3 chronic kidney disease may be secondary to acute tubular necrosis. 4. Hypophosphatemia. 5. Hyperkalemia, corrected. 6. Essential hypertension, stable. 7. Right sarcomatoid neoplasm of the lung. Biopsy was done at [facility], records reviewed. 8. Anemia of chronic disease due to chronic kidney disease. Monitor H and H, transfuse as needed. 9. Sepsis, not improving. White count is trending upwards secondary to pneumonia. 10. Right lower lobe pneumonia. Continue IV antibiotics. May need to adjust antibiotics depending on clinical response. We will check chest x-ray in a.m. Blood cultures and sputum culture still pending at this time. 11. Gastroesophageal reflux disease without esophagitis, on PPI. 12. Hypocalcemia. We will monitor. 13. Severe protein-calorie malnutrition. 14. Moderate pleural effusion. The patient had recent chest tube placement. We will repeat chest x-ray in a.m. 15. Acute respiratory distress Plan: As above. Discharge in the next 48-72 hours depending on clinical response. /AZALEA Voice ID: [id number] Report ID: [id number] SHAYLA
[2018-03-17] MEDS ORDERED: RSI MEDICATION KIT IV ONE (16:39)
[2018-03-17 16:44] LABS: Arterial Blood Carboxyhemoglob 1.6 % (0-1.5); Blood Gas Oxyhemoglobin 95.6 % (94-97); Blood O2 Saturation 97.8 % (92-98.5)
[2018-03-17] MEDS ORDERED: LORazepam 2 MG/ML VIAL IV PRN (17:13)
[2018-03-17] MEDS ORDERED: MIDAZOLAM HCL 2 MG/2 ML INJ IV PRN (17:13)
[2018-03-17] MEDS ORDERED: HALOPERIDOL LACT 5 MG/ML INJ IV PRN (17:13)
[2018-03-17] MEDS ORDERED: PROPOFOL 1,000 MG/100 ML VIAL IV PRN (17:13)
[2018-03-17] MEDS ORDERED: FENTANYL CITR 100 MCG/2 ML IV PRN (17:13)
--- NOTE | 2018-03-17 17:21 | P.PN ---
Date of Service: 03/17/18 Patient has acute change in mental status. ABG was done showing acidosis. BIPAP was initiated. Repeat ABG did not show any improvement therefore decision was made to intubate the patient. Daughter at bedside who is MPOA. Patient is full code. Patient was successfully intubated. CXR pending Neighborhood Coordinator and I feel patient needs higher level of care due to lack of cardiothoracic surgery. Patient may need another chest tube or possibly VATS. Patient's biopsy from [facility] showed sarcomatoid neoplasm of the right lung. Family still deciding on transfer. ADDENDUM: Spoke w oncologist who recommended transfer to [facility] for higher level of care, as her sarcomatoid neoplasm is very rare and would require specialty consultation. Family agrees to transfer. Spoke to ICU Dr. Gillespie who accepted pt. Transfer to [facility] Overall poor prognosis
[2018-03-17] MEDS ORDERED: LORazepam 2 MG/ML VIAL ONE (17:30)
[2018-03-17] MEDS: ENOXAPARIN 30 MG/0.3 ML SQ SCH (17:35)
[2018-03-17] MEDS ORDERED: ETOMIDATE 20 MG/10 ML VIAL IV ONE (17:45)
[2018-03-17] MEDS ORDERED: SUCCINYLCHOLINE 20 MG/ML (10 ML) IV ONE (17:45)
[2018-03-17] MEDS ORDERED: VANCOMYCIN 750 MG in NA CHLORIDE 0.9% 150 ML IVPB SCH (18:00)
--- NOTE | 2018-03-17 18:08 | RAD REPORT ---
EXAM DESCRIPTION: Nivia Single View03/17/2018 5:49 pm CLINICAL HISTORY: Chest pain COMPARISON: 03/15/2018 FINDINGS: An endotracheal tube has its tip a couple centimeters above the rogerio. Nasogastric tube i s coiled within the gastric fundus. Loculated right pleural effusion is unchanged. Right basilar opacities are stable. Right lung volume loss persists
[2018-03-17 19:44] LABS: Arterial Blood Carboxyhemoglob 1.7 % (0-1.5); Blood O2 Saturation 96.4 % (92-98.5)
[2018-03-17] MEDS ORDERED: ARFORMOTEROL TARTRATE 15 MCG/2 ML VIAL.NEB NEB SCH (20:00)
[2018-03-17] MEDS ORDERED: FAMOTIDINE 20 MG/2 ML VIAL IV SCH (21:00)
[2018-03-17 21:20] VITALS: O2SAT 97
[2018-03-17 21:21] VITALS: BP 157/82
--- NOTE | 2018-03-17 21:49 | P.PN ---
Date of Service: 03/17/18 Vital Signs Temp Pulse Resp BP Pulse Ox 98.1 F 86 16 157/82 H 100 03/17/18 12:00 03/17/18 20:00 03/17/18 20:00 03/17/18 20:00 03/17/18 20:00 Medications Acetaminophen (Tylenol -Extra Strength) 500 mg PO Q4HP PRN PRN Reason: [id number]-vm-CELD Stop: 04/14/18 18:07 Last Admin: 03/16/18 13:36 Dose: 500 mg Albuterol Sulfate (Proventil 0.083% Neb Soln) 2.5 mg NEB [id number] PRN PRN Reason: SHORTNESS OF BREATH Stop: 04/14/18 18:07 Last Admin: 03/17/18 14:08 Dose: 2.5 mg Amlodipine Besylate (Norvasc) 10 mg PO DAILY SUSAN Stop: 04/16/18 09:01 Last Admin: 03/17/18 09:39 Dose: 10 mg Arformoterol Tartrate (Brovana) 15 mcg NEB BIDRESP SUSAN Stop: 04/16/18 20:01 Last Admin: 03/17/18 19:53 Dose: 15 mcg Calcitriol (Rocaltrol) 0.5 mcg PO DAILY SUSAN Stop: 04/16/18 09:01 Last Admin: 03/17/18 09:40 Dose: 0.5 mcg Carvedilol (Coreg) 25 mg PO BID 6AM 6PM SUSAN Stop: 04/15/18 18:01 Last Admin: 03/17/18 19:45 Dose: 25 mg Cetirizine HCl (Zyrtec) 10 mg PO DAILY SUSAN Stop: 04/16/18 09:01 Last Admin: 03/17/18 09:41 Dose: 10 mg Cholecalciferol (Vitamin D 5,000 Iu Cap) 5,000 unit PO DAILY SUSAN Stop: 04/16/18 09:01 Last Admin: 03/17/18 09:40 Dose: 5,000 unit Enoxaparin Sodium (Lovenox 30 Mg Inj) 30 mg SQ DAILY 5 PM SUSAN Stop: 04/14/18 19:01 Last Admin: 03/17/18 17:35 Dose: 30 mg Famotidine (Pepcid) 20 mg IV BID SUSAN Stop: 04/16/18 21:01 Fentanyl Citrate (Sublimaze) 25 mcg IV Q4HP PRN PRN Reason: PAIN SEVERE Stop: 04/16/18 17:14 Gabapentin (Neurontin) 100 mg PO BID SUSAN Stop: 04/15/18 21:01 Last Admin: 03/17/18 09:40 Dose: 100 mg Haloperidol Lactate (Haldol) 2 mg IV Q4HP PRN PRN Reason: AGITATION Stop: 04/16/18 17:14 Home Med (Cyclosporine [Restasis]) 1 each OP DAILY SUSAN Stop: 04/16/18 09:01 Last Admin: 03/17/18 09:00 Dose: Not Given Home Med (Fluticasone Propionate [Flovent Diskus]) 1 puff IH DAILY SUSAN Stop: 04/16/18 09:01 Last Admin: 03/17/18 09:00 Dose: Not Given Home Med (Formoterol Fumarate Dihyd,Micr [Formoterol Fumarate]) 2 mg IH BID SUSAN Stop: 04/15/18 21:01 Last Admin: 03/17/18 09:00 Dose: Not Given Home Med (Umeclidinium Brm/Vilanterol Tr [Anoro Ellipta 62.5-25 Mcg Inh]) 1 each IH DAILY SUSAN Stop: 04/16/18 09:01 Last Admin: 03/17/18 09:00 Dose: Not Given Hydralazine HCl (Apresoline) 25 mg PO TID SSUAN Stop: 04/15/18 14:01 Last Admin: 03/17/18 14:00 Dose: Not Given Cefepime HCl (Maxipime 1 Gm/10 Ml Swi Ivp) 1 gm in 10 mls @ 200 mls/hr IV DAILY SUSAN Stop: 04/16/18 09:01 Last Admin: 03/17/18 09:39 Dose: 10 mls Vancomycin HCl 750 mg/ Sodium (Chloride) 150 mls @ 100 mls/hr IVPB Q48H SUSAN Stop: 04/16/18 18:01 Last Admin: 03/17/18 19:46 Dose: 150 mls Sodium Chloride (Sodium Chloride 0.45%) 1,000 mls @ 100 mls/hr IV .Q10H SUSAN Stop: 04/15/18 15:01 Last Admin: 03/17/18 11:50 Dose: 1,000 mls Propofol (Diprivan) 1,000 mg in 100 mls @ 0 mls/hr IV PRN PRN; Protocol PRN Reason: SEDATION Stop: 04/16/18 17:14 Last Admin: 03/17/18 20:58 Dose: 100 mls Ipratropium Hardy (Atrovent Neb) 0.5 mg NEB [id number] SUSAN Stop: 04/16/18 14:01 Last Admin: 03/17/18 19:53 Dose: 0.5 mg Lorazepam (Ativan) 2 mg IV Q2HP PRN PRN Reason: SEDATION Stop: 04/16/18 17:14 Methylprednisolone Sodium Succinate (Solu-Medrol) 40 mg IV Q8HR SUSAN Stop: 04/16/18 14:05 Last Admin: 03/17/18 17:35 Dose: 40 mg Midazolam HCl (Versed) 2 mg IV Q2HP PRN PRN Reason: SEDATION Stop: 04/16/18 17:14 Nutritional Formula (Ensure Enlive) 237 ml PO TID SUSAN Stop: 04/15/18 21:01 Last Admin: 03/17/18 14:00 Dose: Not Given Ondansetron HCl (Zofran) 4 mg IV Q4H PRN PRN Reason: NAUSEA / VOMITING Stop: 04/14/18 18:07 Last Admin: 03/17/18 11:50 Dose: 4 mg Pantoprazole Sodium (Protonix Tab) 40 mg PO DAILYAC [facility] Stop: 04/16/18 06:31 Last Admin: 03/17/18 05:47 Dose: 40 mg Sertraline HCl (Zoloft) 50 mg PO DAILY SUSAN Stop: 04/16/18 09:01 Last Admin: 03/17/18 09:40 Dose: 50 mg Sodium Chloride (Normal Saline Flush) 10 ml IV BID USSAN Stop: 04/14/18 21:01 Last Admin: 03/17/18 09:41 Dose: 10 ml Terazosin HCl (Hytrin) 1 mg PO DAILY SUSAN Stop: 04/16/18 09:01 Last Admin: 03/17/18 09:00 Dose: 1 mg Tramadol HCl (Ultram) 100 mg PO Q6H PRN PRN Reason: PAIN Stop: 04/14/18 23:51 Last Admin: 03/16/18 20:39 Dose: 100 mg Microbiology Results 03/15/18 16:25 Blood - Blood Aerobic Blood Culture - Preliminary No growth in 24 hours. 03/15/18 16:25 Blood - Blood Anaerobic Blood Culture - Preliminary No growth in 24 hours. 03/15/18 16:05 Blood - Blood Aerobic Blood Culture - Preliminary No growth in 24 hours. 03/15/18 16:05 Blood - Blood Anaerobic Blood Culture - Preliminary No growth in 24 hours. Assessment/ Plan: Nephrology. Condition worsened today resulting respiratory failure and intubation. No IH/ ROS due to AMS. Case discussed with nursing staff. Vitals, medications, blood work and imaging reviewed in the chart. General: In no apparent distress, Oriented x3, Cooperative HEENT: Atraumatic, Normocephalic Neck: Supple Respiratory: Clear to auscultation bilaterally, Normal air movement Cardiovascular: No edema, Regular rate/rhythm Gastrointestinal: Soft and benign, Non-distended Musculoskeletal: No clubbing, No contractures Integumentary: No rashes, No cyanosis Neurological: Normal speech Greater than 30 minutes patient care. Laboratory Data (last 24 hrs) 03/15/18 16:05: PT 12.5, INR 1.06 03/15/18 16:05: WBC 14.7 H, Hgb 9.4 L, Hct 29.3 L, Plt Count 228 03/15/18 16:05: Sodium 136, Potassium 5.8 H*, BUN 58 H, Creatinine 4.40 H, Glucose 98, Magnesium 2.5 H, Total Bilirubin 0.2, AST 7 L, ALT < 6 L, Alkaline Phosphatase 75 Imagings Data: EXAM DESCRIPTION: RADChest Single View03/15/2018 4:03 pm CLINICAL HISTORY: Chest pain COMPARISON: March 05, 2018 FINDINGS: Small to moderate right pleural effusion is present. Right lung opacities probably represent a combination of atelectasis and pneumonia. Right lung volume loss is seen. Left lung appears clear of acute infiltrate. The heart is borderline enlarged Conclusions/Impression: A/ MINDI likely hypovolemia. ATN? CKD III with proteinuria. Hyperkalemia. HTN with CKD. Anemia in chronic illness. Hypocalcemia. Moderate malnutrition. Acute respiratory failure sp intubation. AMS. P/ Continue current POC and Medications. Intubated today with plan to transfer to [facility]. Continue IVF. No NSAIDs. AM labs. Daily weight. Case discussed with Dr. French
--- NOTE | 2018-03-20 05:26 | DS ---
Date of Discharge: 03/17/2018 Date Of Transfer: 03/17/2018. Consultants: Dr. Verma with Pulmonology, Dr. Holcomb with Nephrology. Admitting Diagnoses: 1.Chronic obstructive pulmonary disease exacerbation. 2.Acute metabolic encephalopathy. 3.Fzfac-th-dxfazvb kidney injury. 4.Right lower lobe pneumonia. 5.Sepsis. 6.Gastroesophageal reflux disease. 7.History of essential hypertension. Discharge Diagnoses: 1.Sepsis secondary to pneumonia. 2.Right lower lobe pneumonia. 3.Acute respiratory failure, on mechanical ventilation. 4.Acute chronic obstructive pulmonary disease exacerbation. 5.Acute metabolic encephalopathy. 6.Acute respiratory failure with hypercapnia. 7.Xryoe-da-ntsvhtc kidney disease stage 3 secondary to acute tubular necrosis. 8.Hypophosphatemia. 9.Hyperkalemia. 10.Essential hypertension. 11.Right sarcomatoid neoplasm of the lung. 12.Anemia of chronic disease due to chronic kidney disease. 13.Gastroesophageal reflux disease without esophagitis. 14.Hypocalcemia. 15.Severe protein-calorie malnutrition. 16.Moderate pleural effusion. Hospital Course: The patient is a 62-year-old female with past medical history of COPD on home oxyge n, hypertension, chronic kidney disease, who was recently discharged from the hospital and sent to [facility] for thoracentesis and VATS. The patient did not receive VATS but did have chest tube and wa s found to have sarcomatoid neoplasm of the right lung which is a rare tumor. The patient had [address] ained from that chest tube. The patient has been doing okay at home, however, continue to develop sh ortness of breath and some weakness and confusion. Therefore, was brought back into the hospital. T he patient was found to be septic, had pneumonia, fever, leukocytosis with bands. Renal function was significantly worsened. The patient was seen by Pulmonology and Nephrology. The patient was starte d on IV antibiotics. She continued to have decreased mental status. She was found to have hypercapn ia on ABG. The patient was intubated. Her cultures remained negative. Oncology was consulted regar ding her rare sarcomatoid neoplasm. Oncology recommended tertiary care center transfer due to rare n ature of the cancer. Pulmonology also recommended transfer to higher level of care as we do not have Cardiothoracic Surgery. The patient did have recurrent loculated effusion, which is secondary to he r malignancy. The patient was in the ICU in critical condition. Daughter was updated. She did agre e to transfer back to [facility]. [facility] Hauler was contacted, Dr. Gillespie, who accepted the patient and was then transferred to [facility]. Total time transferring patient was 45 minutes. Physical Examination: For physical exam findings, please see progress note dictated on the day of discharge. DEVON Voice ID: [id number] Report ID: [id number]
== END 2018-03-17 21:10 | disposition short-term general hospital (02) | DRG 871 ==
LOC: ER 15:16 → ERHOLD 18:34 → 2ND 21:48 → 3RD-ICU 03-17 16:14
PROVIDERS: ADMIT Family Medicine; ATTEND Family Medicine
PROC: 0BH17EZ Insertion of Endotracheal Airway into Trachea, Via Natural or Artificial Opening (ICD-10-PCS; principal; 2018-03-17)
PROC: 5A1935Z Respiratory Ventilation, Less than 24 Consecutive Hours (ICD-10-PCS; 2018-03-17)
DX: A41.9 Sepsis, unspecified organism (principal); J18.9 Pneumonia, unspecified organism; J96.02 Acute respiratory failure with hypercapnia; G93.41 Metabolic encephalopathy; E43 Unspecified severe protein-calorie malnutrition; N17.0 Acute kidney failure with tubular necrosis; J44.1 Chronic obstructive pulmonary disease with (acute) exacerbation; C34.91 Malignant neoplasm of unspecified part of right bronchus or lung; J90 Pleural effusion, not elsewhere classified; E87.2 Acidosis; Z68.1 Body mass index [BMI] 19.9 or less, adult; R65.20 Severe sepsis without septic shock; E83.39 Other disorders of phosphorus metabolism; E87.5 Hyperkalemia; D63.1 Anemia in chronic kidney disease; K21.9 Gastro-esophageal reflux disease without esophagitis; E83.51 Hypocalcemia; I12.9 Hypertensive chronic kidney disease with stage 1 through stage 4 chronic kidney disease, or unspecified chronic kidney disease; N18.3 Chronic kidney disease, stage 3 (moderate); Z99.81 Dependence on supplemental oxygen; R80.9 Proteinuria, unspecified; E86.1 Hypovolemia; F17.210 Nicotine dependence, cigarettes, uncomplicated; Z88.1 Allergy status to other antibiotic agents; Z88.8 Allergy status to other drugs, medicaments and biological substances
CPT/HCPCS: 36415; 51702; 70450; 71045; 80048; 80053; 80076; 80202; 81001; 81003; 81015; 82140; 82570; 82805; 83605; 83735; 83880; 84100; 84132; 84145; 84300; 84484; 84550; 85025; 85610; 87040; 87086; 87088; 87804; 93005; 94002; 94003; 94640; 94660; 94760; 96365; 96367; 96375; 99285; J0330; J0692; J1650; J1940; J2405; J2543; J2704; J2920; J3370; J7030; J7512; J7605